=== PATIENT | female | born 1945 | race Caucasian/White ===

== ENCOUNTER 2017-08-03 23:00 | Inpatient (IN) | payer MEDICARE, OTHER ==
[~2017-08-03] VITALS: Ht 152.4 cm; Wt 61.2 kg
[2017-08-03] MEDS ORDERED: ASPIRIN 81 MG CHEW (CHILDREN'S ASA) ONE (23:13)
[2017-08-03] MEDS ORDERED: NITROGLYCERIN 0.4 MG SL TABS BTL 25'S SL ONE (23:14)
[2017-08-03 23:15] VITALS: BP 165/103
[2017-08-03] MEDS ORDERED: ASPIRIN 81 MG CHEW (CHILDREN'S ASA) PO ONE (23:15)
[2017-08-03] MEDS: NITROGLYCERIN 0.4 MG SL TABS BTL 25'S SL PRN ×3 (23:17→23:30)
[2017-08-03] MEDS ORDERED: HEParin DRIP 25000 UNIT/500ML 500 ML IV ONE (23:20)
[2017-08-03] MEDS ORDERED: HEParin 1000 UNIT/ML (10ML VIAL) FOR BOLUS ONE ×2 (23:20→23:52)
[2017-08-03] MEDS ORDERED: HEParin 1000 UNIT/ML (10ML VIAL) FOR BOLUS IV ONE (23:21)
[2017-08-03] MEDS ORDERED: CLOPIDOGREL 300 MG (PLAVIX) TABLET PO ONE (23:21)
[2017-08-03 23:30] VITALS: BP 121/92
[2017-08-03 23:30] LABS: BASOPHILS % (AUTO) 0 % (0-10); EOSINOPHILS # (AUTO) 0.2 10^3/uL (0.0-0.3); EOSINOPHILS % (AUTO) 3 % (0-10); HEMATOCRIT 42 % (35-52); HEMOGLOBIN 14.5 G/DL (11.5-16.0); LYMPHOCYTES # (AUTO) 3.7 X 10^3 (1.0-4.0); LYMPHOCYTES % (AUTO) 61 % (12-44); MEAN CORPUSCULAR HEMOGLOBIN 32 PG (25-34); MEAN CORPUSCULAR HGB CONC 34 G/DL (32-36); MEAN CORPUSCULAR VOLUME 93 FL (80-99); MEAN PLATELET VOLUME 10.3 FL (7.4-10.4); MONOCYTES # (AUTO) 0.8 X 10^3 (0.0-1.0); MONOCYTES % (AUTO) 13 % (0-12); NEUTROPHILS # (AUTO) 1.4 X 10^3 (1.8-7.8); NEUTROPHILS % (AUTO) 23 % (42-75); PLATELET COUNT 144 10^3/uL (130-400); RED BLOOD COUNT 4.51 10^6/uL (4.35-5.85); RED CELL DISTRIBUTION WIDTH 11.8 % (10.0-14.5); WHITE BLOOD COUNT 6.1 10^3/uL (4.3-11.0)
--- NOTE | 2017-08-03 23:30 | ED Chest Pain ---
General Chief Complaint: Chest Pain Stated Complaint: EARACHE,COLD SWEATS History of Present Illness Date Seen by Provider: Aug 03, 2017 Time Seen by Provider: 23:10 Initial Comments Here with report initially ear pain and cold sweats but then return to the window and reported that she was having neck pain and central chest pain. At that time she was brought immediately back into the ER and placed on the monitor. Patient reports that the ear pain has been going on for 2 days intermittently that about 15-20 minutes prior to arrival she noted jaw pain and that progressed to neck pain and chest pressure. Also noted to have diaphoresis with this. Never had a heart attack before. Denies nausea or vomiting. Timing/Duration: 1/2 hour, getting worse Severity/Quality: moderate, severe, pressure Location: central Radiation: jaw, other (ears) Activities at Onset: none Prior CP/Workup: no prior chest pain Modifying Factors: improves with rest ASA po MANAGER INSPECTION: No NTG SL MANAGER INSPECTION: No Associated Symptoms: No abdominal pain, No back pain, diaphoresis, No dizziness , No fatigue, No shortness of breath, No weakness Allergies and Home Medications Allergies Coded Allergies: No Known Drug Allergies (Unverified , 08/03/17) Patient Home Medication List Home Medication List Reviewed: Yes Review of Systems Constitutional: see HPI, No chills, diaphoresis, No fever EENTM: No Symptoms Reported Respiratory: No Symptoms Reported Cardiovascular: See HPI, Chest Pain Gastrointestinal: See HPI, Abdomen Distended Genitourinary: No Symptoms Reported, Discharge Musculoskeletal: no symptoms reported Skin: no symptoms reported All Other Systems Reviewed Negative Unless Noted: Yes Past Ijemsrk-Oadahk-Wmwlnd Hx Patient Social History Alcohol Use: Denies Use Recreational Drug Use: No Smoking Status: Never a Smoker Surgeries History of Surgeries: Yes Surgeries: Section Respiratory History of Respiratory Disorde: No Cardiovascular History of Cardiac Disorders: Yes Cardiac Disorders: High Cholesterol, Hypertension Neurological History of Neurological Disord: No Genitourinary History of Genitourinary Disor: No Gastrointestinal History of Gastrointestinal Di: No Musculoskeletal History of Musculoskeletal Dis: No Endocrine History of Endocrine Disorders: Yes Endocrine Disorders: Hypothyroidsim Reviewed Nursing Assessment Reviewed/Agree w Nursing PMH: Yes Family Medical History Significant Family History: No Pertinent Family Hx Physical Exam Vital Signs Capillary Refill : Less Than 3 Seconds General Appearance: WD/WN, Mild Distress HEENT: PERRL/EOMI, Pharynx Normal Neck: Full Range of Motion, Normal Inspection, Non Tender, Supple Respiratory: Lungs Clear, Normal Breath Sounds Cardiovascular: Regular Rate, Rhythm, No Murmur Gastrointestinal: Non Tender, Soft Extremity: Normal Range of Motion, Non Tender Neurologic/Psychiatric: Alert, Oriented x3 Skin: Normal Color, Warm/Dry Progress/Results/Core Measures Results/Orders Lab Results Laboratory Tests Test 08/03/17 23:19 Range/Units My Orders Orders - BOO DENNIS MD Cbc With Automated Diff (08/03/17:) Magnesium (08/03/17:) Chest 1 View, Ap/Pa Only (08/03/17:) Ekg Tracing (08/03/17:) Cardiac Profile 1 (08/03/17) Comprehensive Metabolic Panel (08/03/17) Myoglobin Serum (08/03/17:15) Protime With Inr (08/03/17:15) Partial Thromboplastin Time (08/03/17:) O2 (08/03/17:15) Monitor-Rhythm Ecg Trace Only (08/03/17:) Lipid Panel (08/04/17 06:00) Aspirin Chewable Tablet (Baby Aspirin Ch (08/03/17 23:15) Nitroglycerin 0.4 Mg Btl 25's (Nitrostat (08/03/17 23:15) Saline Lock/Iv-Start (08/03/17 23:15) Aspirin Chewable Tablet (Baby Aspirin Ch (08/03/17 23:13) Nitroglycerin 0.4 Mg Btl 25's (Nitrostat (08/03/17 23:14) Heparin Acs Bolus 60 Units/Kg (08/03/17 23:21) Progress Note : Progress Note Seen and evaluated. Patient placed on monitor and noted ST elevation in lead to and immediate EKG was obtained which confirmed the acute AL inferior wall. IV, labs, chest x-ray, ASA 324 mg by mouth nitroglycerin sublingual ordered. I did page Dr. Schumacher at [phone]. He would like Insurance Policy Issue Clerk activated. Plavix 300 mg by mouth, heparin 5000 units IV bolus and 1000 units per hour drip requested by Dr. Schumacher. This was ordered. The Insurance Policy Issue Clerk team activated by nursing manufacturing shift supervisor at time of page. Findings concerns discussed with patient and family. Patient to go to Insurance Policy Issue Clerk. [id number]: Dr. Schumacher in the ER evaluating patient. ECG Initial ECG Impression Date: Aug 03, 2017 Initial ECG Impression Time: 23:18 Initial ECG Rate: 69 Initial ECG Rhythm: Normal Sinus Comment Sinus rhythm with findings of acute AL inferior leads with ST elevation in 2, 3 and aVF with reciprocal changes in lead 1 and aVL as well as V1 and V2. No previous EKG available for comparison. Normal axis. Interpreted by me. Diagnostic Imaging Diagonstic Imaging: Xray Plain Films/CT/US/NM/MRI: chest Comments No acute findings Reviewed: Reviewed by Me Departure Communication (Admissions) Time/Spoke to Admitting Phy: 23:18 Impression Impression: Primary Impression: Acute AL, inferior wall Disposition: ADMITTED INPATIENT Condition: Stable Admissions Decision to Admit Reason: Admit from ER (General) Decision to Admit/Date: Aug 03, 2017 Time/Decision to Admit Time: 23:18 Departure-Patient Inst. Referrals: ABRAM BRITT DO (PCP) Primary Care Physician BOO DENNIS MD Aug 03, 2017 23:30
[2017-08-03 23:35] LABS: INR 1.1 (0.8-1.4); PROTHROMBIN TIME PATIENT 14.2 SEC (12.2-14.7)
[2017-08-03 23:45] VITALS: BP 128/79
[2017-08-03 23:46] LABS: ALANINE AMINOTRANSFERASE 22 U/L (0-55); ALBUMIN 4.2 GM/DL (3.2-4.5); ALKALINE PHOSPHATASE 56 U/L (40-136); BILIRUBIN,TOTAL 0.4 MG/DL (0.1-1.0); BUN/CREATININE RATIO 23; CALCIUM 9.2 MG/DL (8.5-10.1); CARBON DIOXIDE 28 MMOL/L (21-32); CHLORIDE 103 MMOL/L (98-107); CREATININE SERUM 0.74 MG/DL (0.60-1.30); GFR ESTIMATED > 60; GLUCOSE 120 MG/DL (70-105); MAGNESIUM 2.3 MG/DL (1.8-2.4); SODIUM 138 MMOL/L (135-145); TOTAL PROTEIN 7.2 GM/DL (6.4-8.2)
[2017-08-03 23:52] LABS: MYOGLOBIN SERUM 39.3 NG/ML (10.0-92.0)
[2017-08-03] MEDS ORDERED: fentaNYL INJECTION 100 MCG/2 ML AMP ONE (23:52)
[2017-08-03] MEDS ORDERED: diphenhydrAMINE 50 MG/ML INJ (BENADRYL) ONE (23:52)
[2017-08-03] MEDS ORDERED: MIDAZOLAM 5 MG/5 ML (VERSED) VIAL ONE (23:52)
[2017-08-03] MEDS ORDERED: NITRO DRIP 25000 MCG/D5W 0 ML IV ONE (23:52)
[2017-08-03] MEDS ORDERED: NS IV 1000 ML 1,000 ML ONE (23:52)
[2017-08-03] MEDS ORDERED: LIDOCAINE 1% INJ 50 ML (XYLOCAINE) VIAL ONE (23:52)
[2017-08-03] MEDS ORDERED: HEParin (CATH LAB) 2,000 ML IV ONE (23:53)
--- NOTE | 2017-08-03 23:53 | Cardiology History & Physical ---
HPI-Cardiology Cardiology H&P Date of Admission 08/03/17 Primary Care Physician Benny Boyd DO Attending Physician Germaine Schumacher MD MA FACP [facility] Consulting Physician [facility] CC: Chest pain HPIL 71 yo woman with approx 45 min of chest pain. Had presented with ear pain and sweatiness and began to have chest and jaw pain in the waiting room. Was brought to the ER and ECG at 11:14 showed STEMI in the inf leads. Chest pain is midsternal, mod to mod severe, associated with some shortness of breath. Denies palp or syncope or leg swelling. Has never had such pain before Review of Systems-Cardiology Review of Systems Constitutional: malaise, No weight loss, No weight gain Eyes: No vision change Ears/Nose/Throat: No ear discharge, No nasal drainage, No recent hearing loss Respiratory: As described under HPI Cardiovascular: As described under HPI Gastrointestinal: No constipation, No diarrhea, No nausea, No vomiting Genitourinary: No dysuria, No hematuria Musculoskeletal: No back pain, No joint pain Skin: No rash, No ulcerations Psychiatric/Neurological: No seizure, No focal weakness, No syncope Hematologic: No bleeding abnormalities All Other Systems Reviewed Negative Unless Noted: Yes GFI-Ocjusp-Ijhuiw Hx Patient Social History Alcohol Use: Denies Use Recreational Drug Use: No Smoking Status: Never a Smoker 2nd Hand Smoke Exposure: No Recent Foreign Travel: No Recent Infectious Disease Expo: No Hospitalization with Isolation: Denies Past Medical History PMH As described under Assessment. Family Medical History Family Medical History: No fam h/o early CAD or SCD. Father and brother had ID in their later age Allergies and Home Medications Allergies Coded Allergies: No Known Drug Allergies (Unverified , 08/03/17) Patient Home Medication List Home Medication List Reviewed: Yes Physical Exam-Cardiology Physical Exam Vital Signs/I&O Vital Sign - Last 12Hours 08/03/17 08/03/17 08/03/17 23:10 23:10 23:10 Temp 95.7 Pulse 77 Resp 12 B/P (MAP) 176/105 (128) Pulse Ox 96 100 O2 Delivery Nasal Cannula Nasal Cannula O2 Flow Rate 2.0 2.00 2.00 Capillary Refill : Less Than 3 Seconds Constitutional: AAO x 3, well-developed, well-nourished HEENT: EOMI, hearing is well preserved, No xanthelasmas are seen Neck: No carotid bruit, carotid pulses are 2 + bilaterally, with good upstrokes Respiratory: No accessory muscle use, lungs clear to percussion, lungs clear to auscultation Cardiovascular: regular rate-rhythm, S1 and S2, systolic murmur (faint CEDRICK at card base) Gastrointestinal: No tender, soft, No guarding, No rebound, audible bowel sounds Extremities: No clubbing, No cyanosis, No significant edema Neurologic/Psychiatric: oriented x 3, grossly intact, power is 5/5 both on sides Skin: No rash on exposed areas, No ulcerations on exposed areas Data Review Labs Laboratory Tests 08/03/17 23:19: White Blood Count 6.1, Red Blood Count 4.51, Hemoglobin 14.5, Hematocrit 42, Mean Corpuscular Volume 93, Mean Corpuscular Hemoglobin 32, Mean Corpuscular Hemoglobin Concent 34, Red Cell Distribution Width 11.8, Platelet Count 144, Mean Platelet Volume 10.3, Neutrophils (%) (Auto) 23L, Lymphocytes (%) (Auto) 61H, Monocytes (%) (Auto) 13H, Eosinophils (%) (Auto) 3, Basophils (%) (Auto) 0 , Neutrophils # (Auto) 1.4L, Lymphocytes # (Auto) 3.7, Monocytes # (Auto) 0.8, Eosinophils # (Auto) 0.2, Basophils # (Auto) 0.0, Prothrombin Time 14.2, INR Comment 1.1, Activated Partial Thromboplast Time 29, Sodium Level 138, Potassium Level 4.0, Chloride Level 103, Carbon Dioxide Level 28, Anion Gap 7, Blood Urea Nitrogen 17, Creatinine 0.74, Estimat Glomerular Filtration Rate > 60 , BUN/Creatinine Ratio 23, Glucose Level 120H, Calcium Level 9.2, Magnesium Level 2.3, Total Bilirubin 0.4, Aspartate Amino Transf (AST/SGOT) 24, Alanine Aminotransferase (ALT/SGPT) 22, Alkaline Phosphatase 56, Total Protein 7.2, Albumin 4.2 Laboratory Tests 08/03/17 23:19 A/P-Cardiology Assessment/Admission Diagnosis Acute inf wall STEMI Hypertension Admission Status: Inpatient Order (span 2 midnights) Reason for Inpatient Admission: Acute ID Discussion and Recomendations * Given STEMI and ongoing symptoms, we recommend emergency cath and possible PCI. The rationale, procedure, risks, benefits, potential complications and alternatives of these procedures were reviewed and discussed. She provides informed consent. She has been treated with oral ASA and clopidogrel and iv heparin. BB when considered from the standpoint of bp and heart rate Clinical Quality Measures AMI/AHF: ASA po Prior to arrival: GERMAINE Silva MD FACP [facility] CCDS Aug 03, 2017 23:53
--- NOTE | 2017-08-03 23:55 | Cardiac Procedure Note-CS/ASA ---
Pre-Procedure Note Pre-Op Procedure Note H&P Reviewed The H&P was reviewed, patient examined and no changes noted. Date H&P Reviewed: Aug 03, 2017 Time H&P Reviewed: 23:55 Conscious Sedation Pre-Proced Time Reviewed: 23:55 ASA Class: 3 Airway Mallampati Classification: (sault [place] appropriate class) I. II. III, IV Lungs Heart ASA score ASA 1: a normal healthy patient ASA 2: a patient with a mild systemic disease (mid diabetes, controlled hypertension, obesity ASA 3: a patient with a severe systemic disease that limits activity (angina , COPD, prior Myocardial infarction) ASA 4: a patient with an incapacitating disease that is a constant threat to life (CHF, renal failure) ASA 5: a moribund patient not expected to survive 24 hrs. (ruptured aneurysm) ASA 6: a declared brain patient whose organs are being harvested. For emergent operations, add the letter E after the classification Grade 2 Sedation Plan: Analgesia, Amnesia, Plan communicated to team members, Discussed options with patient/fam, Discussed risks with patient/fam Note The patient is an appropriate candidate to undergo the planned procedure, sedation, and anesthesia. The patient immediately re-assessed prior to indication. LIZY PINON MD FACP [facility] CCDS Aug 03, 2017 23:55
[2017-08-04] VITALS (32 sets, daily range): BP systolic 74–115; BP diastolic 45–94
[2017-08-04] MEDS: NS IV 1000 ML 1,000 ML IV SCH ×6 (00:01→20:51)
[2017-08-04] MEDS ORDERED: HEParin 1000 UNIT/ML (10ML VIAL) FOR BOLUS ONE (00:16)
[2017-08-04] MEDS ORDERED: ONDANSETRON 4 MG/2 ML (SDV) Z0FRAN ONE (00:16)
[2017-08-04] MEDS ORDERED: EPTIFIBATIDE BOLUS 20 ML IV ONE (00:16)
[2017-08-04] MEDS ORDERED: EPTIFIBATIDE DRIP 100 ML IV ONE (00:20)
[2017-08-04] MEDS ORDERED: ATROPINE INJECTION 1 MG/10 ML SYR (ABBOTT) ONE ×2 (00:36→00:43)
[2017-08-04] MEDS ORDERED: NS (IVPB) 250 ML ONE (00:39)
[2017-08-04] MEDS ORDERED: niCARdipine 25 MG/10 ML (CARDENE) AMP IV ONE (00:39)
[2017-08-04] MEDS ORDERED: ATROPINE INJECTION 1 MG/10 ML SYR (ABBOTT) INJ ONE (01:00)
[2017-08-04] MEDS ORDERED: CLOPIDOGREL 300 MG (PLAVIX) TABLET PO ONE (01:43)
[2017-08-04] MEDS ORDERED: PATIENT MAY USE OWN MEDS, ALL PO SCH (02:00)
[2017-08-04] MEDS ORDERED: ONDANSETRON 4 MG/2 ML (SDV) Z0FRAN IVP PRN (02:00)
--- NOTE | 2017-08-04 06:46 | Diagnostic Imaging Report ---
EXAMINATION: Chest radiograph, portable AP view. DATE: 08/03/2017 at 2341 hours. INDICATION: 71-year-old female, upper chest and jaw pain. COMPARISON: None. FINDINGS: Heart size and mediastinal contours are unremarkable. There are limitations of the exam relating to material overlying the patient. There is no identified pneumothorax. There is no large pleural effusion. There is no identified focal airspace consolidation. IMPRESSION: No identified acute cardiopulmonary abnormality. Dictated by: Dictated on workstation # [id number]
--- NOTE | 2017-08-04 06:49 | CARDIAC CATHETERIZATION ---
DATE OF SERVICE: DATE OF PROCEDURE: 08/03/2017 CARDIAC CATHETERIZATION AND CORONARY INTERVENTION REPORT HISTORY: The patient is a 71-year-old lady with a history of hypertension, who presented to the emergency room with nonspecific symptoms, then began to have chest discomfort in the waiting room. Cardiac catheterization showed ST-elevation myocardial infarction involving the inferior leads. Emergency cardiac catheterization was carried out after having obtained an informed consent. After she had been placed on the cardiac catheterization table, before the procedure could be started, she went into cardiac arrest. She appeared to have ventricular fibrillation. Electrical defibrillation was carried out through dermal patches. We also gave 1 mg of intravenous epinephrine and 1 mg of atropine. She also received chest compressions during this time. We were able to achieve her rhythm back (sinus with premature ventricular and atrial contractions). We then proceeded with the cardiac catheterization procedure. PROCEDURE IN DETAIL: PCI TO RCA The right groin was prepared and draped in the usual sterile fashion. Lidocaine 1% with local anesthesia. Modified Seldinger technique was used to advance a 6-Malian sheath in right femoral artery. Based on the electrocardiogram, it appeared that the culprit lesion would be in the right coronary artery. We engaged the right coronary artery with a 6-Malian JR4 guide catheter with side holes. The right coronary artery appeared to have 99% long proximal stenosis. We advanced a ChoICE floppy wire with moderate difficulty and placed it into the distal vessel and carried out balloon angioplasty with Emerge 2.5 x 30 mm balloon (DBT 55 min). This improved the stenosis from approximately 95% to less than 70%. We then stented this lesion with Alpine Xience 2.75 x 28 mm stent. Following stenting, we noted that the vessel that the wire was in was actually a fairly large right ventricular branch and the intervention to the right ventricular branch had resulted in improvement of flow into the right coronary artery, which had previously been completely occluded. Because of the stent was now stretching across the mid portion of the right coronary artery into the proximal portion of the right ventricular branch, we carried out wiring through the stent struts and the wire was placed into the distal part of the right coronary artery. We then carried out kissing balloon angioplasty in the right coronary artery with a 2.5 x 20 mm balloon and in the right ventricular branch with a 2.0 x 20 mm balloon. These balloon inflations were carried out in a kissing balloon pattern. This was to preserve the architecture of the stent while spreading the struts of the stent that were lying across the mid portion of the right coronary artery. During this ballooning, the right coronary artery flow improved significantly, but it appeared that there was thrombus shift into the right ventricular branch, which caused no flow in the distal part of the right ventricular branch. We continued treatment with intravenous heparin and intravenous Integrilin throughout the procedure. As stated, we carried out balloon angioplasty within the right ventricular branch, but we were not able to improve slow flow into the right ventricular branch, likely resulting from distal embolization of the right ventricular branch. We felt that the right ventricular branch was not salvageable at this point. We removed the right ventricular branch wire, but did keep the right coronary artery wire in place and on this wire we advanced Alpine Xience 2.75 x 12 mm stent and it was placed extending across the expanded stent struts in the right coronary artery. This stent was deployed at 16 atmospheres. We then collapsed the balloon and pulled it back to the area of the overlap of the stent with the previous stent and the balloon was inflated to 20 atmospheres. Subsequent angiography revealed 0% residual stenosis in the right coronary artery and the right coronary artery was opened distally down to its terminal posterolateral branches. We gave 700 mcg of nicardipine to improve flow in the right ventricular branch, but this did not result in any improvement. It appeared that this was the best result that we could get in the right coronary artery. We removed the guide catheter and then proceeded with angiography of the left coronary system. PCI TO LCX Angiography of the left coronary system was carried out using a 5-Malian JL4 catheter. This indicated rrva-yq-ygydbvfn diffuse disease in the left anterior descending artery, but there was 90% to 95% stenosis in the proximal portion of the left circumflex artery, which subserved a relatively large obtuse marginal system. We proceeded with the percutaneous intervention to this vessel. We used a 6-Malian JL4 guide catheter. We advanced a ChoICE floppy wire across the lesion. We carried out balloon angioplasty with 2.0 x 20 mm balloon and then stented the site with Alpine Xience 2.5 x 12 mm stent, which reduced the stenosis to 0% residual and the flow throughout the vessel was normal. Angioplasty equipment was removed We used a 6-Malian pigtail catheter to carry out left heart catheterization, left ventricular angiography. This catheter was then pulled back into the ascending aorta and removed. We then repeated angiography into the right coronary artery with a 6-Malian JR4 diagnostic catheter to make sure that the right coronary artery was still patent. It was found to be patent. The right ventricle branch was still occluded due to distal embolization of the myocardial infarction-related thrombus. The diagnostic catheters were removed. We carried out angiography of the right femoral artery through the sheath. Mynx was used to achieve hemostasis. At the beginning of the procedure, she did not have vomiting, but her symptoms subsided with the coronary intervention, although the ST segment elevations did not subside adequately. The yctr-ud-nvaosms time was approximately 55 minutes. HEMODYNAMICS: Left ventricular end-diastolic pressure following coronary angiography was 16 mmHg. There was no significant pressure gradient on pullback across the aortic valve. Ascending aortic pressure was 144/85 with a mean of 114 mmHg. CORONARY ANGIOGRAPHY: Left main coronary artery was free of significant disease. Left anterior descending artery has diffuse fejf-wt-gfgimfzt disease. Left circumflex artery had 90% proximal stenosis. This was stented with Alpine Xience 2.25 x 12 mm stent resulting in 0% residual stenosis. The right coronary artery was the culprit lesion and had 99% mid vessel stenosis and complete occlusion of the distal right coronary artery. Intervention was undertaken to this vessel. A stent was placed in the proximal and mid right coronary artery extending slightly into the right ventricular branch. This was an Alpine Xience 2.75 x 28 mm stent. Another stent was placed in the mid right coronary artery after stretching the stent struts within the previously placed stent and the mid right coronary artery stent is Alpine Xience 2.75 x 12 mm and it overlapped the previous stent. The right coronary artery, which was completely occluded does not exhibit any significant residual stenosis following stent deployment, but the right ventricular branch was lost due to embolization of the infarct-related thrombus. LEFT VENTRICULAR ANGIOGRAPHY: Left ventricular angiography was carried out in the right anterior oblique projection. Global left ventricular systolic function is well preserved with ejection fraction of approximately 60%. There is posterobasal hypokinesis. There does not appear to be significant mitral regurgitation. CONCLUSIONS: 1. Mid vessel occlusion of the right coronary artery treated with overlapping stents (Alpine Xience 2.75 x 28 mm the distal part of which extends slightly into the right ventricular branch) and Alpine Xience 2.75 x 12 mm stent that was placed through the expanded struts of the previous stent and overlaps the stent to some degree. There is no significant residual stenosis in the right coronary artery and the flow was normal, but right ventricular branch was lost during the procedure due to infarct-related thrombus. 2. A 90% to 95% stenosis of the proximal left circumflex artery, which was treated with stenting with Alpine Xience 2.25 x 12 mm stent with reduction of stenosis to 0% residual. 3. The left anterior descending artery has diffuse tizo-zs-jhenmzgi disease. 4. Well preserved global left ventricular systolic function with ejection fraction 60%. 5. Postero-basal hypokinesis. 6. No significant mitral regurgitation. 7. Mild elevation of left ventricular end-diastolic pressure. DISCUSSION AND RECOMMENDATIONS: She is being hospitalized to the intensive care unit. Because of right ventricular branch occlusion, right ventricular infarction is expected. IV fluids are being continued. She is currently asymptomatic. Beta blockers will be added if tolerated by blood pressure and heart rate. Dual antiplatelet therapy has been initiated. Statin therapy has been initiated. BRETT inhibitors have been initiated. Further recommendation will be based on her hospital course. Job ID: [id number] DocumentID: [id number] Dictated Date: 08/04/2017 02:30:53 Lining Mechanic Date: 08/04/2017 05:01:19 Dictated By: LIZY PINON MD, MA, FACP, FACC, MTDD
[2017-08-04] MEDS ORDERED: INFLUENZA TRIvalent 2017-2018 0.5 ML/45 MCG SYR IM ONE (07:45)
[2017-08-04] MEDS ORDERED: lisINopril 5 MG (PRINIVIL) TABLET PO SCH (09:00)
[2017-08-04] MEDS ORDERED: FAMOTIDINE 20 MG (PEPCID) TABLET PO PRN (09:00)
[2017-08-04 10:13] LABS: BASOPHILS % (AUTO) 0 % (0-10); EOSINOPHILS % (AUTO) 0 % (0-10); HEMATOCRIT 34 % (35-52); HEMOGLOBIN 11.9 G/DL (11.5-16.0); LYMPHOCYTES # (AUTO) 0.8 X 10^3 (1.0-4.0); LYMPHOCYTES % (AUTO) 9 % (12-44); MEAN CORPUSCULAR HEMOGLOBIN 33 PG (25-34); MEAN CORPUSCULAR HGB CONC 35 G/DL (32-36); MEAN CORPUSCULAR VOLUME 94 FL (80-99); MEAN PLATELET VOLUME 10.5 FL (7.4-10.4); MONOCYTES # (AUTO) 0.6 X 10^3 (0.0-1.0); MONOCYTES % (AUTO) 7 % (0-12); NEUTROPHILS # (AUTO) 7.3 X 10^3 (1.8-7.8); NEUTROPHILS % (AUTO) 84 % (42-75); PLATELET COUNT 147 10^3/uL (130-400); RED BLOOD COUNT 3.64 10^6/uL (4.35-5.85); RED CELL DISTRIBUTION WIDTH 11.9 % (10.0-14.5); WHITE BLOOD COUNT 8.7 10^3/uL (4.3-11.0)
[2017-08-04] MEDS ORDERED: LEVO50TA6 PO (10:14)
[2017-08-04] MEDS ORDERED: LOSA50TA36 PO (10:14)
[2017-08-04] MEDS ORDERED: PRAV40TA2 PO (10:14)
[2017-08-04] MEDS ORDERED: VNL37.5T PO (10:14)
[2017-08-04] MEDS: ASPIRIN 81 MG CHEW (CHILDREN'S ASA) PO SCH (10:19)
[2017-08-04] MEDS: CLOPIDOGREL 75 MG (PLAVIX) TABLET PO SCH (10:20)
[2017-08-04] MEDS ORDERED: ASPI-983 PO (10:22)
[2017-08-04] MEDS ORDERED: [UNRECOGNIZED DRUG - OTHER] PO (10:22)
[2017-08-04] MEDS ORDERED: CALC-696 PO (10:22)
[2017-08-04] MEDS ORDERED: ASPI-999 PO (10:24)
[2017-08-04 10:29] LABS: BUN/CREATININE RATIO 23; CALCIUM 7.6 MG/DL (8.5-10.1); CARBON DIOXIDE 23 MMOL/L (21-32); CHLORIDE 106 MMOL/L (98-107); CREATININE SERUM 0.61 MG/DL (0.60-1.30); GFR ESTIMATED > 60; GLUCOSE 144 MG/DL (70-105); POTASSIUM 4.4 MMOL/L (3.6-5.0); SODIUM 135 MMOL/L (135-145)
--- NOTE | 2017-08-04 11:54 | Diagnostic Imaging Report ---
INDICATION: Cold sweats, shortness of air, ear pain. COMPARISON: 08/03/2017. FINDINGS: Increased patchy parenchymal opacity in the mid to upper right lung and to lesser extent the suprahilar left upper lobe reflects an adverse change from the prior exam and is suspicious for subtle changes of developing pneumonia. There is no evidence for pleural fluid. The heart size and vascularity remain within normal limits. IMPRESSION: New parenchymal opacities involve the mid to upper lungs, greater right, suspicious for changes of developing pneumonia. No pleural fluid or failure pattern. Dictated by: Dictated on workstation # [id number]
--- NOTE | 2017-08-04 15:20 | Consultation-Hospitalist ---
HPI History of Present Illness: HPI/Chief Complaint The patient is a 71-year-old white female who was admitted just before midnight last night. She presented with chief complaint of chest pain and had EKG evidence of an acute cardial infarction. She has subsequently undergone cardiac angiography. Post steady a chest x-ray was done which suggested patchy infiltrates bilaterally which had not been present on yesterday's chest x-ray. She is afebrile. She seems to be a bit hoarse. She reported that she had a bit of a cough prior to coming to the hospital and this is more so now. Her white count was 6100 at the ER last night and 8700 today. She reports she does not feel short of breath. Source: patient, family Exam Limitations: no limitations Date Seen 08/04/17 Attending Physician Germaine Schumacher MD Facp Facc Ccds PCP Benny Boyd DO Referring Physician Date of Admission Aug 04, 2017 at 02:13 Home Medications & Allergies Home Medications Reviewed patient Home Medication Reconciliation Form Allergies Allergies Coded Allergies No Known Drug Allergies (Unverified08/03/17) Past Ohptqfp-Lpjdyb-Kztyra Hx Patient Social History Alcohol Use: Denies Use Recreational Drug Use: No Smoking Status: Never a Smoker 2nd Hand Smoke Exposure: No Physical Abuse Screen: No Sexual Abuse: No Recent Foreign Travel: No Contact w/other who traveled: No Recent Hopitalizations: No Recent Infectious Disease Expo: No Seasonal Allergies Seasonal Allergies: No Surgeries Yes Section Respiratory No Cardiovascular Yes High Cholesterol, Hypertension Neurological No Reproductive System : No Genitourinary No Gastrointestinal No Musculoskeletal Yes Arthritis Endocrine History of Endocrine Disorders: Yes (thyroid problems) Endocrine Disorders: Hypothyroidsim HEENT History of HEENT Disorders: No Cancer No Psychosocial History of Psychiatric Problem: No Integumentary History of Skin or Integumenta: No Blood Transfusions History of Blood Disorders: No Reviewed Nursing Assessment Reviewed/Agree w Nursing PMH: Yes Family Medical History Significant Family History: No Pertinent Family Hx Review of Systems Constitutional: see HPI EENTM: no symptoms reported Respiratory: cough Cardiovascular: see HPI, chest pain Gastrointestinal: no symptoms reported Genitourinary: no symptoms reported Musculoskeletal: no symptoms reported Skin: no symptoms reported Psychiatric/Neurological: No Symptoms Reported Physical Exam Physical Exam Vital Signs Vital Signs - First Documented 08/03/17 23:10 Temp 95.7 Pulse 77 Resp 12 B/P (MAP) 176/105 (128) Pulse Ox 96 O2 Delivery Nasal Cannula O2 Flow Rate 2.0 Capillary Refill : Less Than 3 Seconds General Appearance: Mild Distress Eyes: Bilateral Eye Normal Inspection HEENT: Normal ENT Inspection Neck: Normal Inspection Respiratory: Chest Non Tender, Lungs Clear, Normal Breath Sounds, No Accessory Muscle Use, No Respiratory Distress Gastrointestinal: Normal Bowel Sounds, No Organomegaly, No Pulsatile Mass, Non Tender, Soft Back: Normal Inspection Extremity: Normal Capillary Refill, Normal Inspection, Normal Range of Motion, Non Tender, No Calf Tenderness, No Pedal Edema Neurologic/Psychiatric: Alert, Oriented x3, No Motor/Sensory Deficits, Normal Mood/Affect Skin: Normal Color, Warm/Dry Lymphatic: No Adenopathy Results Results/Procedures Lab Laboratory Tests 08/03/17 23:19 08/04/17 10:00 Assessment/Plan Assessment and Plan Assess & Plan/Chief Complaint Bilateral patchy pulmonary infiltrates. Chest pain post cardiac angiogram. Plan: Repeat CBC and chest x-ray tomorrow. Empiric Zithromax Clinical Quality Measures AMI/AHF: ASA po Prior to arrival: No DVT/VTE Risk/Contraindication: Risk Factor Score Per Nursin RFS Level Per Nursing on Admit: 4+=Very High SHANTELLE DE LUNA MD Aug 04, 2017 15:19
[2017-08-04] MEDS ORDERED: NS IV 500 ML 500 ML IV ONE (15:30)
[2017-08-04] MEDS ORDERED: AZITHROMYCIN 250 MG TAB (ZITHROMAX) PO NR (15:30)
[2017-08-04] MEDS ORDERED: PANTOPRAZOLE 40 MG/10 ML (PROTONIX) VIAL IV NR (15:30)
[2017-08-04 16:09] LABS: BASOPHILS % (AUTO) 0 % (0-10); EOSINOPHILS % (AUTO) 0 % (0-10); HEMATOCRIT 32 % (35-52); HEMOGLOBIN 10.7 G/DL (11.5-16.0); LYMPHOCYTES # (AUTO) 1.1 X 10^3 (1.0-4.0); LYMPHOCYTES % (AUTO) 10 % (12-44); MEAN CORPUSCULAR HEMOGLOBIN 32 PG (25-34); MEAN CORPUSCULAR HGB CONC 34 G/DL (32-36); MEAN CORPUSCULAR VOLUME 96 FL (80-99); MEAN PLATELET VOLUME 10.3 FL (7.4-10.4); MONOCYTES # (AUTO) 1.2 X 10^3 (0.0-1.0); MONOCYTES % (AUTO) 11 % (0-12); NEUTROPHILS # (AUTO) 8.6 X 10^3 (1.8-7.8); NEUTROPHILS % (AUTO) 79 % (42-75); PLATELET COUNT 152 10^3/uL (130-400); RED CELL DISTRIBUTION WIDTH 12.1 % (10.0-14.5); WHITE BLOOD COUNT 10.9 10^3/uL (4.3-11.0)
[2017-08-04 16:27] LABS: BUN/CREATININE RATIO 23; CALCIUM 7.6 MG/DL (8.5-10.1); CARBON DIOXIDE 25 MMOL/L (21-32); CHLORIDE 104 MMOL/L (98-107); CREATININE SERUM 0.62 MG/DL (0.60-1.30); GFR ESTIMATED > 60; GLUCOSE 116 MG/DL (70-105); MAGNESIUM 1.6 MG/DL (1.8-2.4); POTASSIUM 4.5 MMOL/L (3.6-5.0); SODIUM 134 MMOL/L (135-145)
[2017-08-04] MEDS ORDERED: NS IV 1000 ML 1,000 ML IV ONE (16:45)
[2017-08-04] MEDS: MAGNESIUM 1 GM/100 ML IVPB 100 ML IV SCH ×2 (16:49→17:54)
--- NOTE | 2017-08-04 17:44 | Progress Note-Cardiology ---
Cardiology SOAP Progress Note Subjective: No cp. Still has some earlobe pain (bilat). No shortness of breath. No palp. Has gen weakness Objective: I&O/Vital Signs Vital Sign - Last 12Hours 08/04/17 08/04/17 08/04/17 08/04/17 06:00 07:00 07:00 08:00 Temp 97.8 Pulse 84 81 81 Resp 17 13 B/P (MAP) 84/55 (65) 108/69 (82) Pulse Ox 90 98 O2 Delivery Nasal Cannula Nasal Cannula Nasal Cannula O2 Flow Rate 4.00 4.00 4.00 08/04/17 08/04/17 08/04/17 08/04/17 08:00 09:00 10:00 11:00 Pulse 74 73 76 76 Resp 16 14 19 25 B/P (MAP) 115/65 (82) 101/69 (80) 108/64 (79) 102/62 (75) Pulse Ox 98 97 98 96 O2 Delivery Nasal Cannula Nasal Cannula Nasal Cannula Nasal Cannula O2 Flow Rate 4.00 4.00 4.00 5.00 08/04/17 08/04/17 08/04/17 08/04/17 12:00 12:00 13:00 13:00 Temp 98.5 Pulse 73 71 86 Resp 11 15 B/P (MAP) 108/61 (77) 104/55 (71) Pulse Ox 97 98 O2 Delivery Nasal Cannula Nasal Cannula Nasal Cannula O2 Flow Rate 5.00 5.00 5.00 Weight (Pounds): 139 Weight (Ounces): 7.0 Weight (Calculated Kilograms): 63.663452 Constitutional: AAO x 3, well-developed, well-nourished Respiratory: No accessory muscle use, lungs clear to percussion, lungs clear to auscultation Cardiovascular: regular rate-rhythm, S1 and S2, systolic murmur (faint CEDRICK at card base) Gastrointestional: No tender, soft, No guarding, No rebound, audible bowel sounds Extremities: No clubbing, No cyanosis, No significant edema Neurologic/Psychiatric: oriented x 3, grossly intact, power is 5/5 both on sides Skin: No rash on exposed areas, No ulcerations on exposed areas Results/Procedures: Labs Laboratory Tests 08/03/17 23:19: White Blood Count 6.1, Red Blood Count 4.51, Hemoglobin 14.5, Hematocrit 42, Mean Corpuscular Volume 93, Mean Corpuscular Hemoglobin 32, Mean Corpuscular Hemoglobin Concent 34, Red Cell Distribution Width 11.8, Platelet Count 144, Mean Platelet Volume 10.3, Neutrophils (%) (Auto) 23L, Lymphocytes (%) (Auto) 61H, Monocytes (%) (Auto) 13H, Eosinophils (%) (Auto) 3, Basophils (%) (Auto) 0 , Neutrophils # (Auto) 1.4L, Lymphocytes # (Auto) 3.7, Monocytes # (Auto) 0.8, Eosinophils # (Auto) 0.2, Basophils # (Auto) 0.0, Prothrombin Time 14.2, INR Comment 1.1, Activated Partial Thromboplast Time 29, Sodium Level 138, Potassium Level 4.0, Chloride Level 103, Carbon Dioxide Level 28, Anion Gap 7, Blood Urea Nitrogen 17, Creatinine 0.74, Estimat Glomerular Filtration Rate > 60 , BUN/Creatinine Ratio 23, Glucose Level 120H, Calcium Level 9.2, Magnesium Level 2.3, Total Bilirubin 0.4, Aspartate Amino Transf (AST/SGOT) 24, Alanine Aminotransferase (ALT/SGPT) 22, Alkaline Phosphatase 56, Myoglobin 39.3, Troponin I < 0.30, Total Protein 7.2, Albumin 4.2 08/04/17 10:00: White Blood Count 8.7, Red Blood Count 3.64L, Hemoglobin 11.9, Hematocrit 34L, Mean Corpuscular Volume 94, Mean Corpuscular Hemoglobin 33, Mean Corpuscular Hemoglobin Concent 35, Red Cell Distribution Width 11.9, Platelet Count 147, Mean Platelet Volume 10.5H, Neutrophils (%) (Auto) 84H, Lymphocytes (%) (Auto) 9L, Monocytes (%) (Auto) 7, Eosinophils (%) (Auto) 0, Basophils (%) (Auto) 0, Neutrophils # (Auto) 7.3, Lymphocytes # (Auto) 0.8L, Monocytes # (Auto) 0.6, Eosinophils # (Auto) 0.0, Basophils # (Auto) 0.0, Sodium Level 135, Potassium Level 4.4, Chloride Level 106, Carbon Dioxide Level 23, Anion Gap 6, Blood Urea Nitrogen 14, Creatinine 0.61, Estimat Glomerular Filtration Rate > 60, BUN/ Creatinine Ratio 23, Glucose Level 144H, Calcium Level 7.6L 08/04/17 16:03: White Blood Count 10.9, Red Blood Count 3.30L, Hemoglobin 10.7L, Hematocrit 32L , Mean Corpuscular Volume 96, Mean Corpuscular Hemoglobin 32, Mean Corpuscular Hemoglobin Concent 34, Red Cell Distribution Width 12.1, Platelet Count 152, Mean Platelet Volume 10.3, Neutrophils (%) (Auto) 79H, Lymphocytes (%) (Auto) 10L, Monocytes (%) (Auto) 11, Eosinophils (%) (Auto) 0, Basophils (%) (Auto) 0, Neutrophils # (Auto) 8.6H, Lymphocytes # (Auto) 1.1, Monocytes # (Auto) 1.2H, Eosinophils # (Auto) 0.0, Basophils # (Auto) 0.0, Sodium Level 134L, Potassium Level 4.5, Chloride Level 104, Carbon Dioxide Level 25, Anion Gap 5, Blood Urea Nitrogen 14, Creatinine 0.62, Estimat Glomerular Filtration Rate > 60, BUN/ Creatinine Ratio 23, Glucose Level 116H, Calcium Level 7.6L, Magnesium Level 1.6L A/P: Assessment: Acute STEMI involving inferior wall of the LV; also has RV infarct Card cath and PCIs of 08/04/17: Mid vessel occlusion of the right coronary artery treated with overlapping stents (Alpine Xience 2.75 x 28 mm the distal part of which extends slightly into the right ventricular branch) and Alpine Xience 2.75 x 12 mm stent that was placed through the expanded struts of the previous stent and overlaps the stent to some degree. There is no significant residual stenosis in the right coronary artery and the flow was normal, but right ventricular branch was lost during the procedure due to infarct-related thrombus. A 90% to 95% stenosis of the proximal left circumflex artery, which was treated with stenting with Alpine Xience 2.25 x 12 mm stent with reduction of stenosis to 0% residual. The left anterior descending artery has diffuse mild -to-moderate disease. Well preserved global left ventricular systolic function with ejection fraction 60%, postero-basal hypokinesis, no significant mitral regurgitation and mild elevation of left ventricular end-diastolic pressure on [facility] of 08/04/17 Plan: * Continue dual antiplatelet therapy * Continue iv fluids, because of RV infarct * Avoid hypotensive agents * Monitor labs * Med consult for possible pneumonia and hemoptysis * Prognosis guarded * I discussed her CV issues in detail with her and her Clinical Quality Measures AMI/AHF: ASA po Prior to arrival: LIZY Silva MD FACP [facility] CCDS Aug 04, 2017 17:44
[2017-08-04] MEDS: ATORVASTATIN 80 MG (LIPITOR) TABLET PO SCH (20:51)
[2017-08-05] VITALS (24 sets, daily range): BP systolic 83–136; BP diastolic 45–84
[2017-08-05 08:33] LABS: BUN/CREATININE RATIO 21; CALCIUM 7.7 MG/DL (8.5-10.1); CARBON DIOXIDE 19 MMOL/L (21-32); CHLORIDE 112 MMOL/L (98-107); CREATININE SERUM 0.62 MG/DL (0.60-1.30); GFR ESTIMATED > 60; GLUCOSE 137 MG/DL (70-105); POTASSIUM 4.7 MMOL/L (3.6-5.0); SODIUM 140 MMOL/L (135-145)
[2017-08-05 08:54] LABS: BASOPHILS % (AUTO) 0 % (0-10); EOSINOPHILS % (AUTO) 0 % (0-10); HEMATOCRIT 28 % (35-52); HEMOGLOBIN 9.3 G/DL (11.5-16.0); LYMPHOCYTES # (AUTO) 1.2 X 10^3 (1.0-4.0); LYMPHOCYTES % (AUTO) 14 % (12-44); MEAN CORPUSCULAR HEMOGLOBIN 33 PG (25-34); MEAN CORPUSCULAR HGB CONC 34 G/DL (32-36); MEAN CORPUSCULAR VOLUME 97 FL (80-99); MEAN PLATELET VOLUME 10.7 FL (7.4-10.4); MONOCYTES # (AUTO) 0.9 X 10^3 (0.0-1.0); MONOCYTES % (AUTO) 11 % (0-12); NEUTROPHILS # (AUTO) 6.4 X 10^3 (1.8-7.8); NEUTROPHILS % (AUTO) 75 % (42-75); PLATELET COUNT 111 10^3/uL (130-400); RED BLOOD COUNT 2.86 10^6/uL (4.35-5.85); RED CELL DISTRIBUTION WIDTH 12.3 % (10.0-14.5); WHITE BLOOD COUNT 8.6 10^3/uL (4.3-11.0)
--- NOTE | 2017-08-05 08:55 | Progress Note-Cardiology ---
Cardiology SOAP Progress Note Subjective: Sitting up in a chair at the bedside. Feels like her breathing is better today than yesterday. C/O chest wall pain with deep inspirations. No c/o palpitations, syncope or near syncope. Occ loose cough. No reports of hemoptysis. Objective: I&O/Vital Signs Vital Sign - Last 12Hours 08/05/17 08/05/17 08/05/17 08/05/17 02:00 03:00 04:00 04:00 Temp 98.2 Pulse 79 79 81 Resp 25 8 26 B/P (MAP) 85/45 (58) 83/49 (60) 91/66 (74) Pulse Ox 93 96 93 O2 Delivery Nasal Cannula Nasal Cannula Nasal Cannula O2 Flow Rate 2.00 2.00 2.00 08/05/17 08/05/17 08/05/17 08/05/17 04:00 05:00 06:00 07:00 Pulse 84 96 87 Resp 22 20 B/P (MAP) 89/63 (72) 95/61 (72) Pulse Ox 93 92 O2 Delivery Nasal Cannula Nasal Cannula Nasal Cannula O2 Flow Rate 2.00 2.00 2.00 08/05/17 08/05/17 08/05/17 08/05/17 07:00 08:00 08:00 08:00 Temp 97.8 Pulse 84 84 Resp 10 26 B/P (MAP) 91/57 (68) 99/61 (74) Pulse Ox 95 95 O2 Delivery Nasal Cannula Nasal Cannula Nasal Cannula Nasal Cannula O2 Flow Rate 2.00 2.00 2.00 2.00 08/05/17 08/05/17 08/05/17 08/05/17 09:00 10:00 12:00 12:00 Temp 98.4 Pulse 88 95 Resp 10 15 B/P (MAP) 91/55 (67) 90/59 (69) Pulse Ox 94 93 O2 Delivery Nasal Cannula Nasal Cannula Nasal Cannula Nasal Cannula O2 Flow Rate 2.00 2.00 2.00 2.00 Intake and Output 08/05/17 00:00 Intake Total 3250 ml Output Total 350 ml Balance 2900 ml Weight (Pounds): 141 Weight (Ounces): 2.0 Weight (Calculated Kilograms): 64.674242 Constitutional: AAO x 3, well-developed, well-nourished Respiratory: No accessory muscle use, crackles (bi-basilar; R>L) Cardiovascular: regular rate-rhythm, S1 and S2, systolic murmur (faint CEDRICK at card base) Gastrointestional: No tender, soft, No guarding, No rebound, audible bowel sounds Extremities: No clubbing, No cyanosis, No significant edema Neurologic/Psychiatric: oriented x 3, grossly intact, power is 5/5 both on sides Skin: No rash on exposed areas, No ulcerations on exposed areas Results/Procedures: Labs Laboratory Tests 08/04/17 16:03: White Blood Count 10.9, Red Blood Count 3.30L, Hemoglobin 10.7L, Hematocrit 32L , Mean Corpuscular Volume 96, Mean Corpuscular Hemoglobin 32, Mean Corpuscular Hemoglobin Concent 34, Red Cell Distribution Width 12.1, Platelet Count 152, Mean Platelet Volume 10.3, Neutrophils (%) (Auto) 79H, Lymphocytes (%) (Auto) 10L, Monocytes (%) (Auto) 11, Eosinophils (%) (Auto) 0, Basophils (%) (Auto) 0, Neutrophils # (Auto) 8.6H, Lymphocytes # (Auto) 1.1, Monocytes # (Auto) 1.2H, Eosinophils # (Auto) 0.0, Basophils # (Auto) 0.0, Sodium Level 134L, Potassium Level 4.5, Chloride Level 104, Carbon Dioxide Level 25, Anion Gap 5, Blood Urea Nitrogen 14, Creatinine 0.62, Estimat Glomerular Filtration Rate > 60, BUN/ Creatinine Ratio 23, Glucose Level 116H, Calcium Level 7.6L, Magnesium Level 1.6L 08/05/17 03:05: White Blood Count 8.6, Red Blood Count 2.86L, Hemoglobin 9.3L, Hematocrit 28L, Mean Corpuscular Volume 97, Mean Corpuscular Hemoglobin 33, Mean Corpuscular Hemoglobin Concent 34, Red Cell Distribution Width 12.3, Platelet Count 111L, Mean Platelet Volume 10.7H, Neutrophils (%) (Auto) 75, Lymphocytes (%) (Auto) 14 , Monocytes (%) (Auto) 11, Eosinophils (%) (Auto) 0, Basophils (%) (Auto) 0, Neutrophils # (Auto) 6.4, Lymphocytes # (Auto) 1.2, Monocytes # (Auto) 0.9, Eosinophils # (Auto) 0.0, Basophils # (Auto) 0.0, Sodium Level 140, Potassium Level 4.7, Chloride Level 112H, Carbon Dioxide Level 19L, Anion Gap 9, Blood Urea Nitrogen 13, Creatinine 0.62, Estimat Glomerular Filtration Rate > 60, BUN/ Creatinine Ratio 21, Glucose Level 137H, Calcium Level 7.7L, Magnesium Level 2.5H, Total Bilirubin 0.9, Direct Bilirubin 0.4H, Indirect Bilirubin 0.5, Aspartate Amino Transf (AST/SGOT) 339H, Alanine Aminotransferase (ALT/SGPT) 93H , Alkaline Phosphatase 37L, Total Protein 5.2L, Albumin 3.2, Triglycerides Level 69, Cholesterol Level 106, LDL Cholesterol Direct 58, VLDL Cholesterol 14 , HDL Cholesterol 37L, Thyroid Stimulating Hormone (TSH) 0.26L Microbiology 08/04/17 Gram Stain - Final, Resulted 08/04/17 Sputum Culture - Preliminary, Resulted Usual/normal patricia isolated. Procedures NAME: LEYLA CASTELLANO [facility] REC#: [id number] PT STATUS: ADM IN : 1945 PHYSICIAN: ABHISHEK BANDA ADMIT DATE: 08/04/17/ICU Signed Date of Exam: 08/04/17 CHEST 1 VIEW, AP/PA ONLY INDICATION: Cold sweats, shortness of air, ear pain. COMPARISON: 08/03/2017. FINDINGS: Increased patchy parenchymal opacity in the mid to upper right lung and to lesser extent the suprahilar left upper lobe reflects an adverse change from the prior exam and is suspicious for subtle changes of developing pneumonia. There is no evidence for pleural fluid. The heart size and vascularity remain within normal limits. IMPRESSION: New parenchymal opacities involve the mid to upper lungs, greater right, suspicious for changes of developing pneumonia. No pleural fluid or failure pattern. 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 There is no significant residual stenosis in the right coronary artery and the flow was normal, but right ventricular branch was lost during the procedure due to infarct-related thrombus. A 90% to 95% stenosis of the proximal left circumflex artery, which was treated with stenting with Alpine Xience 2.25 x 12 mm stent with reduction of stenosis to 0% residual. The left anterior descending artery has diffuse mild -to-moderate disease Chest soreness post chest compression on 08/04/17 for transient lois-FL cardiac arrest Well preserved global left ventricular systolic function with ejection fraction 60%, postero-basal hypokinesis, no significant mitral regurgitation and mild elevation of left ventricular end-diastolic pressure on [facility] of 08/04/17 Echo of 08/04/17: LVEF 55-60%,mild AI, grade I diastolic dysfunction of LV, PASP WNL Pneumonia - management per medical services TSH 0.26 on lab of - indicative of hyperthyroidism Hypotension - likely d/t RV infarct Mild thrombocytopenia Elevated transaminases likely d/t STEMI Plan: * Continue dual antiplatelet therapy * Continue iv fluids, because of RV infarct * Avoid hypotensive agents * Monitor labs * Med consult for possible pneumonia and hemoptysis * We would like to thank medical services for their assistance * Prognosis guarded * Dr. Schumacher discussed her CV issues in detail with her and her * IS * Lovenox for DVT prophylaxis Physician Assessment Physician Assessment Feels better today. Has continuous chest soreness that is worse with motion at the torso and with deep insp. Ear discomfort has resolved. Denies shortness of breath or palp Lungs: clear Cor: reg Ext: no c/c/e A&R * As noted in our note above that I updated at the time of this writing (italics ) and as noted below * Monitor labs closely * Continue vigorous perioperative fluids * Start bb and BRETT-inhib if and when bp allows * I spoke with her and her fam and answered questions Clinical Quality Measures AMI/AHF: ASA po Prior to arrival: No ABHISHEK BANDA Aug 05, 2017 08:55 LIZY SCHUMACHER MD FACP [facility] CCDS Aug 05, 2017 13:48
[2017-08-05 09:01] LABS: ALANINE AMINOTRANSFERASE 93 U/L (0-55); ALBUMIN 3.2 GM/DL (3.2-4.5); ALKALINE PHOSPHATASE 37 U/L (40-136); BILIRUBIN,DIRECT 0.4 MG/DL (0.0-0.3); BILIRUBIN,INDIRECT 0.5 MG/DL; BILIRUBIN,TOTAL 0.9 MG/DL (0.1-1.0); MAGNESIUM 2.5 MG/DL (1.8-2.4); TOTAL PROTEIN 5.2 GM/DL (6.4-8.2)
[2017-08-05] MEDS: ASPIRIN 81 MG CHEW (CHILDREN'S ASA) PO SCH (09:10)
[2017-08-05] MEDS: CLOPIDOGREL 75 MG (PLAVIX) TABLET PO SCH (09:10)
[2017-08-05] MEDS: PANTOPRAZOLE 40 MG/10 ML (PROTONIX) VIAL IV SCH (09:10)
[2017-08-05] MEDS ORDERED: FAMOTIDINE 20 MG (PEPCID) TABLET PO PRN (10:15)
[2017-08-05] MEDS: NS IV 1000 ML 1,000 ML IV SCH ×2 (10:24→17:33)
[2017-08-05] MEDS ORDERED: ENOXAPARIN 40 MG/0.4 ML (LOVENOX) SYR SC SCH (10:30)
[2017-08-05] MEDS ORDERED: AZITHROMYCIN 250 MG TAB (ZITHROMAX) PO SCH (15:00)
--- NOTE | 2017-08-05 15:07 | Diagnostic Imaging Report ---
EXAM: Portable erect AP chest at 2:38 p.m. INDICATION: Respiratory distress FINDINGS: As noted on the prior exam of 08/04/2017 there are alveolar/interstitial pulmonary infiltrates throughout the right lung and left upper lung. These findings are similar to the prior exam. The left lung base is generally clear. The heart is stable. The mediastinum is not widened. The osseous structures are intact. IMPRESSION: There is persistent involvement of both lungs by pneumonia/atelectasis, particularly the right lung. When compared to the prior exam, there has been no significant change. A followup exam would be recommended for continued study. Dictated by: Dictated on workstation # [id number]
--- NOTE | 2017-08-05 16:29 | Progress Note-Hospitalist ---
Standard Progress Note Progress Notes/Assess & Plan Date Seen 08/05/17 Time Seen by Provider: 16:21 Assess & Plan/Chief Complaint The patient relates that she is feeling somewhat better today. She continues to cough although not so violently. She is afebrile and is not coughing up any phlegm. Her pulse has been in the 70s. Her blood pressure would be in the low normal range. It is noted that her hemoglobin has fallen from 14.5 admission to 9.3 now. I do not find any significant external evidence of bleeding. It is again noted that she had a cough prior to admission however became much more evident yesterday. Chest x-ray continues to show a fine infiltrate which has not increased as compared to yesterday. Gram stain of sputum showed no pathogen. White blood count is in the normal range. Early in the hospital stay O2 by nasal cannula at 2 L/m yielded consistent SaO2's of greater than 95. Now at 3-4 L/m we are seeing low 90s readings. Physical exam: She is alert and oriented and more lively than yesterday. Lungs show distant breath sounds without rhonchi or wheezing. CV shows a regular rate in the 70s. Heart sounds are normal. Abdomen is soft palpation. Extremities show no pedal edema. Impression: Arteriosclerotic heart disease post-coronary angiography. 2.harsh cough without evidence of infection. 3.hospital-acquired drop in hemoglobin. 4.hospital-acquired increase in AST and ALT. Plan: Continue O2 supplement and observation. Labs Laboratory Tests 08/03/17 23:19 08/04/17 10:00 08/04/17 16:03 08/05/17 03:05 SHANTELLE DE LUNA MD Aug 05, 2017 16:29
[2017-08-05] MEDS: ATORVASTATIN 80 MG (LIPITOR) TABLET PO SCH (20:12)
[2017-08-05] MEDS: ACETAMINOPHEN 325 MG TABLET/CAPLET (TYLENOL) PO PRN (20:13)
[2017-08-06] VITALS (23 sets, daily range): BP systolic 93–141; BP diastolic 58–98
[2017-08-06] MEDS: NS IV 1000 ML 1,000 ML IV SCH ×2 (01:26→12:09)
[2017-08-06 03:55] LABS: HEMOGLOBIN 9.3 G/DL (11.5-16.0); MEAN PLATELET VOLUME 10.9 FL (7.4-10.4); RED BLOOD COUNT 2.91 10^6/uL (4.35-5.85); RED CELL DISTRIBUTION WIDTH 12.3 % (10.0-14.5); WHITE BLOOD COUNT 7.7 10^3/uL (4.3-11.0)
[2017-08-06 04:10] LABS: ALANINE AMINOTRANSFERASE 84 U/L (0-55); ALBUMIN 3.1 GM/DL (3.2-4.5); ALKALINE PHOSPHATASE 41 U/L (40-136); BILIRUBIN,TOTAL 1.6 MG/DL (0.1-1.0); BUN/CREATININE RATIO 14; CALCIUM 7.7 MG/DL (8.5-10.1); CARBON DIOXIDE 22 MMOL/L (21-32); CHLORIDE 111 MMOL/L (98-107); CREATININE SERUM 0.58 MG/DL (0.60-1.30); GFR ESTIMATED > 60; GLUCOSE 117 MG/DL (70-105); MAGNESIUM 2.3 MG/DL (1.8-2.4); POTASSIUM 4.2 MMOL/L (3.6-5.0); SODIUM 139 MMOL/L (135-145); TOTAL PROTEIN 5.6 GM/DL (6.4-8.2)
[2017-08-06] MEDS ORDERED: FUROSEMIDE 40 MG/4 ML INJ (LASIX) IVP NR (08:30)
[2017-08-06] MEDS ORDERED: KCL 10 MEQ TAB (MICRO K) PO NR (08:30)
--- NOTE | 2017-08-06 08:46 | Progress Note-Cardiology ---
Cardiology SOAP Progress Note Subjective: Notes malaise and shortness of breath. Denies cp or palp or syncope Objective: I&O/Vital Signs Vital Sign - Last 12Hours 08/05/17 08/05/17 08/05/17 08/05/17 21:00 21:00 21:39 22:00 Temp 100.7 100.4 Pulse 92 93 Resp 22 24 B/P (MAP) 117/72 (87) 106/67 (80) Pulse Ox 94 93 O2 Delivery Nasal Cannula Nasal Cannula O2 Flow Rate 2.00 2.00 08/05/17 08/05/17 08/06/17 08/06/17 23:00 23:00 00:00 00:00 Temp 99.6 Pulse 93 89 Resp 26 17 B/P (MAP) 98/62 (74) 107/62 (77) Pulse Ox 93 91 O2 Delivery Nasal Cannula Nasal Cannula Nasal Cannula Nasal Cannula O2 Flow Rate 2.00 2.00 2.00 2.00 08/06/17 08/06/17 08/06/17 08/06/17 01:00 01:00 02:00 03:00 Pulse 87 85 91 107 Resp 27 17 17 B/P (MAP) 96/58 (71) 109/62 (78) 109/65 (80) Pulse Ox 93 92 93 O2 Delivery Nasal Cannula Nasal Cannula Nasal Cannula O2 Flow Rate 2.00 2.00 2.00 08/06/17 08/06/17 08/06/17 08/06/17 03:38 04:00 04:00 04:00 Temp 97.5 97.5 Pulse 104 Resp 22 B/P (MAP) 111/67 (82) Pulse Ox 91 O2 Delivery Nasal Cannula Nasal Cannula O2 Flow Rate 2.00 2.00 08/06/17 08/06/17 08/06/17 08/06/17 05:00 06:00 07:00 07:45 Temp 100.5 Pulse 105 122 101 Resp 24 30 B/P (MAP) 122/66 (84) 116/98 (104) Pulse Ox 92 93 O2 Delivery Nasal Cannula Nasal Cannula O2 Flow Rate 2.00 2.00 Intake and Output 08/06/17 00:00 Intake Total 1400 ml Output Total 550 ml Balance 850 ml Weight (Pounds): 136 Weight (Ounces): 6.0 Weight (Calculated Kilograms): [id number] Constitutional: AAO x 3, well-developed, well-nourished Respiratory: No accessory muscle use, crackles (bi-basilar; R>L) Cardiovascular: regular rate-rhythm, S1 and S2, systolic murmur (faint CEDRICK at card base) Gastrointestional: No tender, soft, No guarding, No rebound, audible bowel sounds Extremities: No clubbing, No cyanosis, No significant edema Neurologic/Psychiatric: oriented x 3, grossly intact, power is 5/5 both on sides Skin: No rash on exposed areas, No ulcerations on exposed areas Results/Procedures: Labs Laboratory Tests 08/06/17 03:10: White Blood Count 7.7, Red Blood Count 2.91L, Hemoglobin 9.3L, Hematocrit 28L, Mean Corpuscular Volume 97, Mean Corpuscular Hemoglobin 32, Mean Corpuscular Hemoglobin Concent 33, Red Cell Distribution Width 12.3, Platelet Count 99L, Mean Platelet Volume 10.9H, Sodium Level 139, Potassium Level 4.2, Chloride Level 111H, Carbon Dioxide Level 22, Anion Gap 6, Blood Urea Nitrogen 8, Creatinine 0.58L, Estimat Glomerular Filtration Rate > 60, BUN/Creatinine Ratio 14, Glucose Level 117H, Calcium Level 7.7L, Magnesium Level 2.3, Total Bilirubin 1.6H, Aspartate Amino Transf (AST/SGOT) 250H, Alanine Aminotransferase (ALT/SGPT) 84H, Alkaline Phosphatase 41, Total Protein 5.6L, Albumin 3.1L Microbiology 08/04/17 Gram Stain - Final, Resulted 08/04/17 Sputum Culture - Preliminary, Resulted Usual/normal patricia isolated. Laboratory Tests 08/04/17 10:00 08/04/17 16:03 08/05/17 03:05 08/06/17 03:10 A/P: Assessment: Acute STEMI involving inferior wall of the LV; also has RV infarct Card cath and PCIs of 08/04/17: Mid vessel occlusion of the right coronary artery treated with overlapping stents (Alpine Xience 2.75 x 28 mm the distal part of which extends slightly into the right ventricular branch) and Alpine Xience 2.75 x 12 mm stent that was placed through the expanded struts of the previous stent and overlaps the stent to some degree. There is no significant residual stenosis in the right coronary artery and the flow was normal, but right ventricular branch was lost during the procedure due to infarct-related thrombus. A 90% to 95% stenosis of the proximal left circumflex artery, which was treated with stenting with Alpine Xience 2.25 x 12 mm stent with reduction of stenosis to 0% residual. The left anterior descending artery has diffuse mild -to-moderate disease Chest soreness post chest compression on 08/04/17 for transient lois-GA cardiac arrest Well preserved global left ventricular systolic function with ejection fraction 60%, postero-basal hypokinesis, no significant mitral regurgitation and mild elevation of left ventricular end-diastolic pressure on LHC of 08/04/17 Echo of 08/04/17: LVEF 55-60%,mild AI, grade I diastolic dysfunction of LV, PASP WNL Paroxysmal atrial fib/flutter Volume overload resulting in acute diastolic CHF Mild to moderate anemia and thrombocytopenia Pneumonia - management per medical services TSH 0.26 on lab of - indicative of hyperthyroidism Hypotension - likely d/t RV infarct Mild thrombocytopenia Elevated transaminases likely d/t STEMI Plan: * Complex management due to multisystem involvement * Add Eliquis due to PAF; d/c Lovenox after adding Eliquis; also d/c aspirin after adding Eliquis (to reduce risk of bleeding and also because of her thrombocytopenia); continue Plavix * Add beta-felton to regimen, because bp seems improved and stable at this time * Repeat echo to eval for pericard eff, because of somewhat low voltage on ECG * Obtain troponin to evaluate infarct size * Reduce iv fluids and give low dose furosemide for fluid overload * Consult Heme for anemia and thrombocytopenia. I called Dr Gardner and spoke with him * Dr Rojas managing her pneumonia * I am signing out to Dr Bailey for Cardiology coverage later today Clinical Quality Measures AMI/AHF: ASA po Prior to arrival: LIZY Silva MD FACP FAC CCDS Aug 06, 2017 08:46
[2017-08-06] MEDS: PANTOPRAZOLE 40 MG/10 ML (PROTONIX) VIAL IV SCH (08:57)
[2017-08-06] MEDS: CLOPIDOGREL 75 MG (PLAVIX) TABLET PO SCH (08:58)
[2017-08-06] MEDS: APIXABAN 5 MG (ELIQUIS) TABLET PO SCH ×2 (08:58→21:58)
[2017-08-06] MEDS: DILTIAZEM INJECTION 125 MG in NS (IVPB) 100 ML IV SCH (08:59)
[2017-08-06] MEDS ORDERED: meTOprolol TARTRATE 25 MG (LOPRESSOR) TABLET PO SCH (09:00)
--- NOTE | 2017-08-06 11:39 | Progress Note-Hospitalist ---
Progress Note HPI/CC on Admission The patient is a 71-year-old white female who was admitted just before midnight last night. She presented with chief complaint of chest pain and had EKG evidence of an acute cardial infarction. She has subsequently undergone cardiac angiography. Post steady a chest x-ray was done which suggested patchy infiltrates bilaterally which had not been present on yesterday's chest x-ray. She is afebrile. She seems to be a bit hoarse. She reported that she had a bit of a cough prior to coming to the hospital and this is more so now. Her white count was 6100 at the ER last night and 8700 today. She reports she does not feel short of breath. Progress Notes/Assess & Plan Date Seen 08/06/17 Time Seen by Provider: 10:30 Admission Dx/Process Patient having more difficulty with shortness of breath and Lasix was given with cardiology order Chest x-ray infiltrate noted but no fever Hemoglobin stable Eating a bit but not much Denies any pain at bedside Reviewed labs and meds No fever, tachycardic at 110 had an episode of atrial fibrillation noted on telemetry Frail, chronically ill, pale, grayish Tachycardic but regular rhythm, crackles in the bases especially right lower lobe 2+ edema noted lower extremities Laboratory Tests 08/06/17 03:10 08/06/17 12:05 Assessment: Acute myocardial infarction status post cardiac catheterization with intervention Volume overload Hypoxia Episode of atrial fib captured on telemetry Infiltrate on chest x-ray but no evidence of bacterial source but increased shortness of breath I suspect cardiac in origin Plan: Monitor hemoglobin Consult pulmonology Monitor closely Patient critically ill Monitor for respiratory compromise Focused Exam Evaluation Lactate Level Laboratory Tests 08/06/17 12:05: Lactic Acid Level 2.07*H Lactic Acid Level Laboratory Tests Test 08/06/17 12:05 Lactic Acid Level 2.07 MMOL/L (0.50-2.00) *H ZHANNA CARMONA DO Aug 06, 2017 11:39
--- NOTE | 2017-08-06 11:53 | Pulmonary Consultation ---
History of Present Illness History of Present Illness Date of Consultation 08/06/17 11:48 Time Seen by Provider: 11:48 Date of Admission History of Present Illness 71yo who initially presented secondary to midsternal severe CP and SOB she was dx with STEMI in inferior leads. Allergies and Home Medications Allergies Coded Allergies: No Known Drug Allergies (Unverified , 08/03/17) Home Medications Aspirin 81 Mg Tablet.dr, 81 MG PO Q48H, (Reported) ALTERNATES COATED ASPIRIN WITH CHEWABLE ASPIRN EVERY OTHER DAY AT SUPPER TIME. Aspirin 81 Mg Tab.chew, 81 MG PO Q48H, (Reported) ALTERNATES COATED ASPIRIN WITH CHEWABLE ASPIRN EVERY OTHER DAY AT SUPPER TIME. Calcium Citrate/Vitamin D3 1 Each Tablet, 1 TAB PO HS, (Reported) Levothyroxine Sodium 50 Mcg Tablet, 50 MCG PO DAILY, (Reported) Losartan Potassium 50 Mg Tablet, 50 MG PO DAILY, (Reported) Pravastatin Sodium 40 Mg Tablet, 40 MG PO HS, (Reported) Venlafaxine HCl 37.5 Mg Tab, 37.5 MG PO DAILY, (Reported) [Allbee W/ C] , 1 TAB PO 1800, (Reported) Past Piulqbl-Vykzyz-Baamun Hx Patient Social History Alcohol Use: Denies Use Recreational Drug Use: No Smoking Status: Never a Smoker 2nd Hand Smoke Exposure: No Recent Foreign Travel: No Contact w/Someone Who Travel: No Recent Infectious Disease Expo: No Recent Hopitalizations: No Immunizations Up To Date Date of Pneumonia Vaccine: Apr 06, 2016 Date of Influenza Vaccine: Apr 06, 2017 Seasonal Allergies Seasonal Allergies: No Surgeries History of Surgeries: Yes Surgeries: Section Respiratory History of Respiratory Disorde: No Cardiovascular History of Cardiac Disorders: Yes Cardiac Disorders: High Cholesterol, Hypertension Neurological History of Neurological Disord: No Reproductive System : No Genitourinary History of Genitourinary Disor: No Gastrointestinal History of Gastrointestinal Di: No Musculoskeletal History of Musculoskeletal Dis: Yes Musculoskeletal Disorders: Arthritis Endocrine History of Endocrine Disorders: Yes (thyroid problems) Endocrine Disorders: Hypothyroidsim HEENT History of HEENT Disorders: No Cancer History of Cancer: No Psychosocial History of Psychiatric Problem: No Integumentary History of Skin or Integumenta: No Blood Transfusions History of Blood Disorders: No Reviewed Nursing Assessment Reviewed/Agree w Nursing PMH: Yes Family Medical History Significant Family History: No Pertinent Family Hx Exam Exam Vital Signs Date Time Temp Pulse Resp B/P (MAP) Pulse Ox O2 Delivery O2 Flow Rate FiO2 08/06/17 10:00 110 14 114/59 (77) 94 Nasal Cannula 3.00 08/06/17 09:13 Nasal Cannula 4.00 08/06/17 09:06 Nasal Cannula 4.00 08/06/17 09:00 100 14 136/86 (103) 96 Nasal Cannula 5.00 08/06/17 08:15 Nasal Cannula 5.00 08/06/17 08:00 102 14 132/89 (103) 94 Nasal Cannula 5.00 08/06/17 07:45 100.5 08/06/17 07:00 102 19 126/78 (94) 90 Nasal Cannula 2.00 08/06/17 07:00 101 08/06/17 06:00 122 30 116/98 (104) 93 Nasal Cannula 2.00 08/06/17 05:00 105 24 122/66 (84) 92 Nasal Cannula 2.00 08/06/17 04:00 104 22 111/67 (82) 91 Nasal Cannula 2.00 08/06/17 04:00 Nasal Cannula 2.00 08/06/17 04:00 97.5 08/06/17 03:38 97.5 08/06/17 03:00 107 17 109/65 (80) 93 Nasal Cannula 2.00 08/06/17 02:00 91 17 109/62 (78) 92 Nasal Cannula 2.00 08/06/17 01:00 85 08/06/17 01:00 87 27 96/58 (71) 93 Nasal Cannula 2.00 08/06/17 00:00 Nasal Cannula 2.00 08/06/17 00:00 99.6 89 17 107/62 (77) 91 Nasal Cannula 2.00 08/05/17 23:00 93 26 98/62 (74) 93 Nasal Cannula 2.00 08/05/17 23:00 Nasal Cannula 2.00 08/05/17 22:00 93 24 106/67 (80) 93 Nasal Cannula 2.00 08/05/17 21:39 100.4 08/05/17 21:00 92 22 117/72 (87) 94 Nasal Cannula 2.00 08/05/17 21:00 100.7 08/05/17 20:15 101.5 Nasal Cannula 2.00 08/05/17 20:13 101.5 08/05/17 20:00 96 18 136/77 (96) 97 Nasal Cannula 2.00 08/05/17 20:00 Nasal Cannula 2.00 08/05/17 19:00 96 08/05/17 19:00 96 21 121/65 (83) 95 Nasal Cannula 2.00 08/05/17 18:00 101 10 121/74 (90) 92 Nasal Cannula 2.00 08/05/17 17:00 88 17 109/66 (80) 92 Nasal Cannula 2.00 08/05/17 16:00 97.4 Nasal Cannula 2.00 08/05/17 16:00 93 14 108/67 (81) 92 Nasal Cannula 2.00 08/05/17 16:00 Nasal Cannula 2.00 08/05/17 15:00 92 13 107/64 (78) 92 Nasal Cannula 2.00 08/05/17 14:00 97 15 113/84 (94) 90 Nasal Cannula 2.00 08/05/17 13:00 90 08/05/17 13:00 90 20 98/69 (79) 90 Nasal Cannula 2.00 08/05/17 12:00 Nasal Cannula 2.00 08/05/17 12:00 98.4 Nasal Cannula 2.00 08/05/17 12:00 87 19 104/68 (80) 96 Nasal Cannula 2.00 I & O 08/06/17 07:00 Intake Total 3940 ml Output Total 1700 ml Balance 2240 ml General Appearance: Mild Distress HEENT: Normal ENT Inspection Neck: Normal Inspection Respiratory: Chest Non Tender, Lungs Clear, Normal Breath Sounds, No Accessory Muscle Use, No Respiratory Distress Cardiovascular: Regular Rate, Rhythm, No Murmur Capillary Refill: Less Than 3 Seconds Extremity: Normal Capillary Refill, Normal Inspection, Normal Range of Motion, Non Tender, No Calf Tenderness, No Pedal Edema Neurologic/Psychiatric: Alert, Oriented x3, No Motor/Sensory Deficits, Normal Mood/Affect Skin: Normal Color, Warm/Dry Lymphatic: No Adenopathy Results Lab Laboratory Tests 08/04/17 16:03 08/05/17 03:05 08/06/17 03:10 Assessment/Plan Assessment/Plan SOB probably secondary to pneumonia -start zosyn -lance culture -check LA and BNP STEMI post cath CAD Afib/flutter 255 JUANA WILLS DO Aug 06, 2017 11:53
[2017-08-06] MEDS ORDERED: PIPERACILLIN SODIUM/TAZOBACTAM 4.5 GM in NS (IVPB) 100 ML IV NR (12:00)
[2017-08-06 12:37] LABS: BASOPHILS % (AUTO) 0 % (0-10); EOSINOPHILS % (AUTO) 0 % (0-10); HEMATOCRIT 27 % (35-52); LYMPHOCYTES # (AUTO) 0.7 X 10^3 (1.0-4.0); LYMPHOCYTES % (AUTO) 8 % (12-44); MEAN CORPUSCULAR HEMOGLOBIN 32 PG (25-34); MEAN CORPUSCULAR HGB CONC 33 G/DL (32-36); MEAN CORPUSCULAR VOLUME 96 FL (80-99); MEAN PLATELET VOLUME 10.7 FL (7.4-10.4); MONOCYTES # (AUTO) 0.5 X 10^3 (0.0-1.0); MONOCYTES % (AUTO) 6 % (0-12); NEUTROPHILS # (AUTO) 7.9 X 10^3 (1.8-7.8); NEUTROPHILS % (AUTO) 87 % (42-75); PLATELET COUNT 116 10^3/uL (130-400); RED CELL DISTRIBUTION WIDTH 12.3 % (10.0-14.5); WHITE BLOOD COUNT 9.1 10^3/uL (4.3-11.0)
[2017-08-06 13:16] LABS: LYMPHOCYTES % (MANUAL) 5 %; MONOCYTES % (MANUAL) 6 %; NEUTROPHILS % (MANUAL) 89 %; RBC MORPH NORMAL
[2017-08-06] MEDS ORDERED: ASPIRIN 81 MG CHEW (CHILDREN'S ASA) PO ONE (13:30)
[2017-08-06] MEDS ORDERED: meTOprolol TARTRATE 50 MG (LOPRESSOR) TAB PO ONE (13:30)
[2017-08-06 13:58] LABS: BILIRUBIN,URINE NEGATIVE (NEGATIVE); CLARITY,URINE CLEAR; COLOR,URINE YELLOW; GLUCOSE, URINE (UA) NEGATIVE (NEGATIVE); KETONES,URINE NEGATIVE (NEGATIVE); LEUKOCYTE ESTERASE ,URINE NEGATIVE (NEGATIVE); NITRITE,URINE NEGATIVE (NEGATIVE); PH,URINE 5 (5-9); PROTEIN,URINE 2+ (NEGATIVE); UROBILINOGEN,URINE NORMAL (NORMAL)
[2017-08-06 14:17] LABS: BACTERIA,URINE TRACE /HPF; HYALINE CASTS, URINE RARE /LPF; SQUAMOUS EPITHELIAL CELL,UR 0-2 /HPF; WBC,URINE 0-2 /HPF
[2017-08-06] MEDS: ACETAMINOPHEN 325 MG TABLET/CAPLET (TYLENOL) PO PRN (16:46)
[2017-08-06] MEDS: PIPERACILLIN SODIUM/TAZOBACTAM 4.5 GM in NS (IVPB) 100 ML IV SCH (18:10)
--- NOTE | 2017-08-06 19:29 | CONSULTATION REPORT ---
DATE OF SERVICE: 08/06/2017 REFERRING PHYSICIAN: Germaine Schumacher MD, MA, FACP, FACC. PRIMARY PHYSICIAN: Benny Boyd DO. The patient is admitted to ICU bed 1. IMPRESSION: 1. A 71-year-old female admitted to the hospital with an unstable angina, status post cardiac catheterization with stent placement. 2. ST-elevation myocardial infarction probably involving the right ventricle. 3. Use of heparin bolus and drip in the emergency room and during the early part of admission, Integrilin, aspirin, Plavix and Eliquis. 4. Thrombocytopenia, probably related to heparin versus other medications versus DIC versus other. RECOMMENDATIONS: 1. Repeat CBC and chemistry panel tomorrow morning. Also obtain fibrinogen, D-dimer. Continue management of STEMI and pneumonia as you are doing. 2. Avoid heparin and heparin-related products. 3. Monitor CBC serially. BRIEF HISTORY: The patient is a 71-year-old female, who was evaluated at the emergency room because of left ear and jaw pain of 1 day duration. This was felt to be anginal and the patient was started on heparin bolus and drip and cardiology consultation was obtained. The patient underwent a cardiac catheterization with a significant coronary artery disease requiring 2 stents placement. In spite of this, the patient had an STEMI. She was also diagnosed with pneumonia and is on antibiotics. During this hospitalization, the patient was treated with heparin, Lovenox, Integrilin, Plavix, aspirin and Eliquis. She was noted to have worsening thrombocytopenia and hematology consultation was requested. PAST MEDICAL HISTORY: Significant for hypertension and hypercholesterolemia for 10 or more years and has been on treatment. Prior surgeries include in the past. She has hypothyroidism for a few decades and is on replacement. She has osteoarthritis involving the major joints. SOCIAL HISTORY: The patient is and lives in [place], [place]. They have three adult sons, two of whom live close by and one son lives in [place], [place]. She denied any tobacco, alcohol or other recreational drug use. She worked at [employer] for approximately 20 years and retired in 2011. FAMILY HISTORY: Significant for coronary artery disease and diabetes mellitus in her father and brother. Mother had coronary artery disease and colon cancer. Sister was diagnosed with colon cancer. REVIEW OF SYSTEMS: The patient has had screening colonoscopies with no major abnormalities. PHYSICAL EXAMINATION: GENERAL: Showed an elderly female, awake and oriented, in moderate respiratory distress at the time of evaluation. VITAL SIGNS: Temperature was 100.0, pulse rate 117, respirations 21, blood pressure 141/91, pulse oximetry showed 98% on 4 liters of oxygen by nasal cannula. HEENT: Normocephalic, extraocular muscles intact, conjunctivae pink, oral mucosa moist. NECK: Supple, with no JVD. No cervical, supraclavicular or axillary lymphadenopathy palpable. CHEST: Symmetrical. LUNGS: Slightly diminished breath sounds bilaterally without wheezes or rales. CARDIOVASCULAR: Borderline tachycardic, regular with no murmurs heard. ABDOMEN: Soft, nontender with no hepatosplenomegaly or other masses palpable. EXTREMITIES: Showed no edema or petechiae. LABORATORY DATA: CBC done at the time of admission showed white count of 6.1, hemoglobin 14.5 and platelet count 144,000 with neutrophil count of 1.4 and lymphocyte count 3.7. CBC done today morning showing white count of 8.6, hemoglobin 9.3, platelet count 111 with a neutrophil count 6.4 and lymphocyte count 1.2. Repeat CBC done today at noon showed white count of 9.1, hemoglobin 9.0 and platelet count 116,000 with neutrophil count 7.9 and lymphocyte count 0.7. Chemistry panel done today showed relatively normal electrolytes. BUN was 8, creatinine 0.58 with GFR more than 60 mL per minute. Nonfasting glucose was 117. Total bilirubin was 1.6, AST 250, ALT 84 and albumin level of 3.1. Troponin level was elevated at 34.67. UA was unremarkable. Chest x-ray done today showed persistent involvement of both lungs by pneumonia/atelectasis more in the right lung. This has been stable when compared to the previous study from two days ago. Thank you for allowing me to participate in this patient's care. I will follow the patient with you and make appropriate recommendations. Job ID: [id number] DocumentID: [id number] Dictated Date: 08/06/2017 15:45:16 Camera Prototyping Engineer Date: 08/06/2017 19:29:00 Dictated By: OLIVIA BANKS MD
[2017-08-06] MEDS: ATORVASTATIN 80 MG (LIPITOR) TABLET PO SCH (21:57)
[2017-08-06] MEDS: meTOprolol TARTRATE 50 MG (LOPRESSOR) TAB PO SCH (21:57)
[2017-08-07] VITALS (23 sets, daily range): BP systolic 93–155; BP diastolic 51–94
[2017-08-07] MEDS: PIPERACILLIN SODIUM/TAZOBACTAM 4.5 GM in NS (IVPB) 100 ML IV SCH ×3 (01:58→17:41)
[2017-08-07 03:30] LABS: BASOPHILS % (AUTO) 0 % (0-10); EOSINOPHILS # (AUTO) 0.1 10^3/uL (0.0-0.3); EOSINOPHILS % (AUTO) 1 % (0-10); HEMATOCRIT 28 % (35-52); HEMOGLOBIN 9.2 G/DL (11.5-16.0); LYMPHOCYTES # (AUTO) 0.9 X 10^3 (1.0-4.0); LYMPHOCYTES % (AUTO) 10 % (12-44); MEAN CORPUSCULAR HEMOGLOBIN 32 PG (25-34); MEAN CORPUSCULAR HGB CONC 33 G/DL (32-36); MEAN CORPUSCULAR VOLUME 97 FL (80-99); MONOCYTES # (AUTO) 0.6 X 10^3 (0.0-1.0); MONOCYTES % (AUTO) 7 % (0-12); NEUTROPHILS # (AUTO) 7.8 X 10^3 (1.8-7.8); NEUTROPHILS % (AUTO) 83 % (42-75); PLATELET COUNT 121 10^3/uL (130-400); RED BLOOD COUNT 2.88 10^6/uL (4.35-5.85); RED CELL DISTRIBUTION WIDTH 12.3 % (10.0-14.5); WHITE BLOOD COUNT 9.4 10^3/uL (4.3-11.0)
[2017-08-07 03:41] LABS: FIBRIN DEGRADATION PRODUCTS 3.01 UG/ML (0.00-0.49)
[2017-08-07 04:03] LABS: ALANINE AMINOTRANSFERASE 75 U/L (0-55); ALBUMIN 3.2 GM/DL (3.2-4.5); ALKALINE PHOSPHATASE 56 U/L (40-136); BILIRUBIN,TOTAL 2.1 MG/DL (0.1-1.0); BUN/CREATININE RATIO 21; CALCIUM 8.2 MG/DL (8.5-10.1); CARBON DIOXIDE 24 MMOL/L (21-32); CHLORIDE 108 MMOL/L (98-107); CREATININE SERUM 0.61 MG/DL (0.60-1.30); GFR ESTIMATED > 60; GLUCOSE 118 MG/DL (70-105); MAGNESIUM 2.1 MG/DL (1.8-2.4); PHOSPHORUS 1.2 MG/DL (2.3-4.7); POTASSIUM 3.8 MMOL/L (3.6-5.0); SODIUM 138 MMOL/L (135-145); TOTAL PROTEIN 6.1 GM/DL (6.4-8.2)
[2017-08-07] MEDS ORDERED: POT PHOS/NA PHOS (K-PHOS NEUTRAL) PO ONE (05:15)
[2017-08-07] MEDS: NS IV 1000 ML 1,000 ML IV SCH (05:23)
--- NOTE | 2017-08-07 06:06 | Pulmonary Progress Note ---
Subjective Time Seen by Provider: 06:41 Subjective/Events-last exam Pts SOB is currently worse and she does have accessory muscle use. Focused Exam Evaluation Lactate Level Laboratory Tests 08/06/17 12:05: Lactic Acid Level 2.07*H 08/06/17 14:15: Lactic Acid Level 2.02*H Exam Exam Vital Signs Date Time Temp Pulse Resp B/P (MAP) Pulse Ox O2 Delivery O2 Flow Rate FiO2 08/07/17 05:00 88 16 142/92 (109) 93 Nasal Cannula 4.00 08/07/17 04:00 87 19 135/88 (104) 94 Nasal Cannula 4.00 08/07/17 03:55 95 Nasal Cannula 4.00 08/07/17 03:00 99.4 89 22 135/79 (97) 93 Nasal Cannula 4.00 08/07/17 02:00 84 22 109/70 (83) 95 Nasal Cannula 4.00 08/07/17 01:00 84 08/07/17 01:00 128 30 114/83 (93) 93 Nasal Cannula 4.00 08/07/17 00:00 96 Nasal Cannula 4.00 08/07/17 00:00 98.7 82 24 100/63 (75) 96 Nasal Cannula 4.00 08/06/17 23:59 Nasal Cannula 4.00 08/06/17 23:00 76 30 100/70 (80) 95 Nasal Cannula 4.00 08/06/17 22:00 89 28 97/69 (78) 94 Nasal Cannula 4.00 08/06/17 21:00 129 18 102/76 (85) 98 Nasal Cannula 4.00 08/06/17 20:00 84 21 93/62 (72) 95 Nasal Cannula 4.00 08/06/17 19:45 Nasal Cannula 4.00 08/06/17 19:00 97.0 130 20 110/83 (92) 96 Nasal Cannula 4.00 08/06/17 19:00 130 08/06/17 18:11 99.0 08/06/17 18:00 129 19 93/69 (77) 98 Nasal Cannula 4.00 08/06/17 17:00 121 22 94/75 (81) 95 Nasal Cannula 4.00 08/06/17 16:00 133 22 105/84 (91) 99 Nasal Cannula 4.00 08/06/17 16:00 Nasal Cannula 4.00 08/06/17 15:00 93 36 115/70 (85) 96 Nasal Cannula 4.00 08/06/17 14:00 117 21 98 Nasal Cannula 4.00 08/06/17 13:50 100.0 08/06/17 13:45 Nasal Cannula 4.00 08/06/17 13:00 103 24 141/91 (108) 96 Nasal Cannula 3.00 08/06/17 13:00 105 08/06/17 12:45 Nasal Cannula 4.00 08/06/17 12:11 100.8 08/06/17 12:00 101 18 130/71 (90) 96 Nasal Cannula 3.00 08/06/17 11:00 122 17 122/87 (99) 94 Nasal Cannula 3.00 08/06/17 10:00 110 14 114/59 (77) 94 Nasal Cannula 3.00 08/06/17 09:13 Nasal Cannula 3.00 08/06/17 09:06 Nasal Cannula 4.00 08/06/17 09:00 100 14 136/86 (103) 96 Nasal Cannula 5.00 08/06/17 08:15 Nasal Cannula 5.00 08/06/17 08:00 102 14 132/89 (103) 94 Nasal Cannula 5.00 08/06/17 07:45 100.5 08/06/17 07:00 102 19 126/78 (94) 90 Nasal Cannula 2.00 08/06/17 07:00 101 I & O 08/07/17 07:00 Intake Total 2516 ml Output Total 2700 ml Balance -184 ml General Appearance: Anxious, Moderate Distress HEENT: Normal ENT Inspection Neck: Normal Inspection Respiratory: Chest Non Tender, Accessory Muscle Use, Crackles, Respiratory Distress Cardiovascular: Regular Rate, Rhythm, No Murmur Capillary Refill: Less Than 3 Seconds Extremity: Normal Capillary Refill, Normal Inspection, Normal Range of Motion, Non Tender, No Calf Tenderness, No Pedal Edema Neurologic/Psychiatric: Alert, Oriented x3, No Motor/Sensory Deficits, Normal Mood/Affect Skin: Normal Color, Warm/Dry Lymphatic: No Adenopathy Results Lab Laboratory Tests 08/06/17 03:10 08/06/17 12:05 08/07/17 03:05 Assessment/Plan Assessment/Plan Acute Respiratory failure secondary to pneumonia vs pulmonary edema -Continue zosyn -lance culture pending -repeat check LA and BNP -Influenza is negative -CHeck ABG Hemoptysis r/o PE -PT is on anticoagulation however if this is HIT she needs to be on argatroban or other direct thrombin inhibitor -Check CTA -Check bilateral dopplers Thrombocytopenia r/o HIT -Hemeonc is following -CHeck HIT and peripheral smear -Need to change anticoagulation to Angiomax until HIT is ruled out Hep is on hold STEMI post cath -plavix CAD Afib/flutter Discussed with Dr. Lindo, pharmacy and medical staff regarding treatment plan. Critical Care: Critically Ill Patient Time spent with patient (mins): 60 JUANA WILLS DO Aug 07, 2017 06:06
[2017-08-07 06:21] LABS: ABSOLUTE RETIC # 70 10e9/L (24-90); BASOPHILS % (AUTO) 0 % (0-10); EOSINOPHILS % (AUTO) 0 % (0-10); HEMATOCRIT 28 % (35-52); HEMOGLOBIN 9.2 G/DL (11.5-16.0); LYMPHOCYTES # (AUTO) 0.8 X 10^3 (1.0-4.0); LYMPHOCYTES % (AUTO) 9 % (12-44); MEAN CORPUSCULAR HEMOGLOBIN 32 PG (25-34); MEAN CORPUSCULAR HGB CONC 33 G/DL (32-36); MEAN CORPUSCULAR VOLUME 97 FL (80-99); MEAN PLATELET VOLUME 10.6 FL (7.4-10.4); MONOCYTES # (AUTO) 0.6 X 10^3 (0.0-1.0); MONOCYTES % (AUTO) 7 % (0-12); NEUTROPHILS # (AUTO) 7.2 X 10^3 (1.8-7.8); NEUTROPHILS % (AUTO) 84 % (42-75); PLATELET COUNT 130 10^3/uL (130-400); RED CELL DISTRIBUTION WIDTH 12.3 % (10.0-14.5); RETICULOCYTE % 2.41 % (0.50-2.40); WHITE BLOOD COUNT 8.6 10^3/uL (4.3-11.0)
[2017-08-07] MEDS ORDERED: morphine INJ 4 MG/ML 1 ML (VIAL/SYRINGE) IVP PRN (06:30)
[2017-08-07 06:38] LABS: BAND NEUTROPHILS 1 %; BASOPHILS % (MANUAL) 0 %; EOSINOPHILS % (MANUAL) 0 %; LYMPHOCYTES % (MANUAL) 7 %; MONOCYTES % (MANUAL) 5 %; NEUTROPHILS % (MANUAL) 87 %; POLYCHROMASIA SLIGHT
[2017-08-07 06:45] LABS: ABG BASE EXCESS -2.2 MMOL/L (-2.5-2.5); ABG OXYGEN SATURATION 88 % (94-100); ABG PCO2 36 MMHG (35-45); ABG PO2 53 MMHG (79-93); ABG TCO2 22.7 MMOL/L (21.0-31.0)
[2017-08-07 06:46] LABS: ALLENS TEST YES-POS; INSPIRED O2 4L NC; PATIENT TEMP 99.3; VENTILATOR NO
--- NOTE | 2017-08-07 06:55 | Diagnostic Imaging Report ---
INDICATION: Shortness of air. COMPARISON: 08/05/2017 FINDINGS: Single frontal radiographic view of the chest was obtained and again demonstrates bilateral interstitial opacities, right greater than left. There has been interval progression with development of scattered and confluent alveolar opacities as well. Small right basilar effusion is suspected. There is no large effusion on the left. No pneumothorax is seen on either side. Cardiac silhouette and pulmonary vasculature are within normal limits. Bony structures show no gross acute abnormalities. IMPRESSION: 1. Interval progression of mixed interstitial and alveolar infiltrates, right greater than left. 2. Probable small right basilar effusion. Dictated by: Dictated on workstation # [id number]
[2017-08-07] MEDS ORDERED: BIVALIRUDIN IV SCH ×2 (07:00)
[2017-08-07] MEDS ORDERED: DEXTROSE IV SCH ×2 (07:00)
[2017-08-07] MEDS ORDERED: IOHEXOL 350 MG/ML 150 ML (OMNIPAQUE 350) VIAL IV ONE (08:15)
[2017-08-07] MEDS ORDERED: NS 250 ML (IVPB) BAG IV ONE (08:15)
--- NOTE | 2017-08-07 08:27 | Cardiology Progress Note ---
Subjective Date Seen by Provider: Aug 07, 2017 Time Seen by Provider: 08:22 Subjective/Events-last exam Patient is in a wheelchair, going for CT scan. She is still short of breath at rest. No chest pain. No palpitation. No syncope or near syncopal episodes. Review of Systems General: No Chills, No Night Sweats, No Fatigue, Malaise, No Appetite, No Other HEENT: No Head Aches, No Visual Changes, No Eye Pain, No Ear Pain, No Dysphasia , No Sinus Congestion, No Post Nasal Drip, No Sore Throat, No Other Pulmonary: Dyspnea, Cough, No Pleuritic Chest Pain, No Other Cardiovascular: Chest Pain, Edema, No: Palpitations, Orthopnea, Paroxysmal Noc. Dyspnea, Lt Headedness, Other Focused Exam Evaluation Lactate Level Laboratory Tests 08/06/17 12:05: Lactic Acid Level 2.07*H 08/06/17 14:15: Lactic Acid Level 2.02*H 08/07/17 06:10: Lactic Acid Level 1.36 Lactic Acid Level Laboratory Tests Test 08/07/17 06:10 Lactic Acid Level 1.36 MMOL/L (0.50-2.00) Objective-Cardiology Exam Last Set of Vital Signs Vital Signs 08/07/17 08/07/17 08/07/17 08/07/17 03:00 06:00 07:00 07:13 Temp 99.4 Pulse 92 Resp 29 B/P (MAP) 145/92 (109) Pulse Ox 94 O2 Delivery Vapotherm O2 Flow Rate 25.00 FiO2 60 Capillary Refill : Less Than 3 Seconds I&O Intake and Output 08/07/17 00:00 Intake Total 3116 ml Output Total 3000 ml Balance 116 ml Intake Oral 916 ml IV Total 2200 ml Output Urine Total 3000 ml # Bowel Movements 4 General: Alert, Oriented X3, Cooperative, Moderate Distress HEENT: Atraumatic, PERRLA Neck: Supple, No JVD, No Thyromegaly Lungs: Normal Air Movement, Other (Bilateral rales) Heart: Regular Rate, Normal S1, Normal S2, No Murmurs, Other (S3 present, peripheral edema) Abdomen: Normal Bowel Sounds, Soft, No Tenderness, No Hepatosplenomegaly, No Masses Extremities: No Clubbing, No Cyanosis, Normal Pulses, No Tenderness/Swelling, Other (Peripheral edema, normal capillary refill) Skin: No Rashes, No Breakdown, No Significant Lesion Neuro: Normal Gait, Normal Speech, Normal Tone, Sensation Intact Psych/Mental Status: Mental Status NL, Mood NL Results Lab Laboratory Tests 08/06/17 12:05 08/07/17 03:05 08/07/17 06:10 A/P-Cardiology Admission Diagnosis Acute ST elevation myocardial infarction Coronary artery disease Acute respiratory failure Hypotension Assessment/Plan Acute STEMI involving inferior wall of the LV; also has RV infarct, recovering slowly Coronary artery disease, status post cardiac catheterization done by Dr. Schumacher on 08/04/17: Mid vessel occlusion of the right coronary artery treated with overlapping stents (Alpine Xience 2.75 x 28 mm the distal part of which extends slightly into the right ventricular branch) and Alpine Xience 2.75 x 12 mm stent that was placed through the expanded struts of the previous stent and overlaps the stent to some degree. There is no significant residual stenosis in the right coronary artery and the flow was normal, but right ventricular branch was lost during the procedure due to infarct-related thrombus. A 90% to 95% stenosis of the proximal left circumflex artery, which was treated with stenting with Alpine Xience 2.25 x 12 mm stent with reduction of stenosis to 0% residual. The left anterior descending artery has diffuse [id number] disease Chest soreness post chest compression on 08/04/17 for transient lois-MT cardiac arrest Acute respiratory failure, shortness of breath, wearing oxygen, given diuretics yesterday with slight improvement, receiving antibiotic, thrombocytopenia, venous Doppler study was negative, still going for CT angiogram of the chest. Thrombocytopenia, improved, unlikely to be HIT, upper she had Dr. Diaz's input Well preserved global left ventricular systolic function with ejection fraction 60%, postero-basal hypokinesis, no significant mitral regurgitation and mild elevation of left ventricular end-diastolic pressure on [facility] of 08/04/17, continue to monitor closely Low voltage on EKG. Echo was described above. Continue to monitor Paroxysmal atrial fib/flutter, currently in sinus rhythm. Started on Eliquis. Continue on Plavix. Monitor closely. Pneumonia - management per medical services TSH 0.26 on lab of - indicative of hyperthyroidism Hypotension - likely d/t RV infarct, the pressure is better at this time. Monitor closely Elevated transaminases likely d/t STEMI Clinical Quality Measures AMI/AHF: ASA po Prior to arrival: No DVT/VTE Risk/Contraindication: Risk Factor Score Per Nursin RFS Level Per Nursing on Admit: 4+=Very High SERGEI CHUN MD Aug 07, 2017 08:27
--- NOTE | 2017-08-07 09:01 | Diagnostic Imaging Report ---
PROCEDURE: CT angiography of the chest with contrast. TECHNIQUE: Multiple contiguous axial images were obtained through the chest after uneventful bolus administration of intravenous contrast. Reconstructed CTA MIP acquisitions were also performed. INDICATION: Respiratory distress. There are no previous CTA chest examinations available for comparison. The plain film examination of the chest performed earlier today noted diffuse alveolar/interstitial pulmonary infiltrates bilaterally. On this exam there are diffuse groundglass densities throughout both lungs, particularly the right lung. These findings are nonspecific but could be secondary to pulmonary edema, pneumonia, atelectasis or a combination of all 3. There are also bilateral pleural effusions. The effusion on the right measures 3.9 CM in maximum depth while the left sided effusion is estimated to be 2.7 CM. The heart is enlarged. There are coronary artery calcifications evident. The aorta is not abnormally dilated. There is no sign of a dissection. There is no defect within the pulmonary arteries to indicate a pulmonary embolism either. There are areas of diminished density throughout the mediastinum. These may represent lymph nodes. These are most likely reactive lymph nodes. The thyroid gland was not well visualized. There is no obvious breast mass. The sections through the upper abdomen show that there is fluid about the gallbladder. The gallbladder wall does not seem to be abnormally thickened but the presence of fluid does raise the question of acute cholecystitis. If further imaging is desired, the ultrasound would be recommended. The bone windows show no sign of a fracture or of a destructive lesion. IMPRESSION: 1. There are diffuse alveolar/interstitial groundglass densities involving both lungs. These may be secondary to pulmonary edema, pneumonia, atelectasis or a combination of all three. There are also bilateral pleural effusions. 2. There is no acute cardiopulmonary abnormality identified otherwise. In particular, there is no sign of a dissection or of a pulmonary embolism. 3. There is no evidence for cholelithiasis or for thickening of the gallbladder wall but there is fluid about the gallbladder. The possible of acute cholecystitis should be considered. Recommendations as above. Dictated by: Dictated on workstation # [id number]
--- NOTE | 2017-08-07 09:04 | Diagnostic Imaging Report ---
Bilateral lower extremity venous Doppler. INDICATION: Leg pain and swelling. FINDINGS: Spectral and color flow imaging of the deep venous system of each lower extremity was performed. There are no prior studies available for comparison. There is generally good blood flow and compressibility at all levels of the deep venous system of each lower extremity. There is no sign of a deep venous thrombosis. IMPRESSION: There is no evidence for deep venous thrombosis of either lower extremity. Dictated by: Dictated on workstation # [id number]
[2017-08-07] MEDS: DILTIAZEM INJECTION 125 MG in NS (IVPB) 100 ML IV SCH (09:07)
[2017-08-07] MEDS: PANTOPRAZOLE 40 MG/10 ML (PROTONIX) VIAL IV SCH (09:42)
[2017-08-07] MEDS: CLOPIDOGREL 75 MG (PLAVIX) TABLET PO SCH (09:42)
[2017-08-07] MEDS: meTOprolol TARTRATE 50 MG (LOPRESSOR) TAB PO SCH ×2 (09:43→20:44)
[2017-08-07] MEDS: ASPIRIN E.C. 81 MG (ECOTRIN) TAB PO SCH (09:45)
--- NOTE | 2017-08-07 12:18 | Progress Note-Hospitalist ---
Progress Note HPI/CC on Admission The patient is a 71-year-old white female who was admitted just before midnight last night. She presented with chief complaint of chest pain and had EKG evidence of an acute cardial infarction. She has subsequently undergone cardiac angiography. Post steady a chest x-ray was done which suggested patchy infiltrates bilaterally which had not been present on yesterday's chest x-ray. She is afebrile. She seems to be a bit hoarse. She reported that she had a bit of a cough prior to coming to the hospital and this is more so now. Her white count was 6100 at the ER last night and 8700 today. She reports she does not feel short of breath. Progress Notes/Assess & Plan Date Seen 08/07/17 Time Seen by Provider: 10:40 Admission Dx/Process Patient was looking more declined this morning so CT angiogram was ordered by Dr. Quan which the result is negative for PE and pulmonary edema is confirmed on that study after I confer with Dr. Quan and he evaluated the image worsening Patient appears to be doing much better [address] Quan started the Vapotherm and although she is still short of breath with the least amount of activity she does feel better and she appears to be better and her coloring is improved Patient still concerned about intubation and I told her within the next 24 hours we will know for sure that she is going in the right direction and I reassured her Zosyn initiated empirically for pneumonia in case that is superimposed within the pulmonary edema Lasix was ordered by Dr. Quan and patient will likely improve after diuresis Checked meds and labs Acutely ill but much improved from yesterday improved coloring less cabrera and pale Tachycardic but regular rhythm, crackles in the bases but much improved 2+ edema noted lower extremities Laboratory Tests 08/07/17 03:05 08/07/17 06:10 Assessment: Acute myocardial infarction status post cardiac catheterization with intervention Volume overload with pulmonary edema on CT scan chest Hypoxia stable on Vapotherm Episode of atrial fib captured on telemetry no further episodes Infiltrate on chest x-ray with pulmonary edema on CT scan Dr Quna ordered IV Lasix but maintained on Zosyn empirically Anemia of critical illness Thrombocytopenia s/p elevated Lactic acid likely due to episode of hypotension the day before Plan: Monitor hemoglobin Consult pulmonology is appreciated Monitor closely Patient critically ill Monitor for respiratory compromise and still may need intubation if respiratory status declines but improved on Vapotherm Focused Exam Evaluation Lactate Level Laboratory Tests 08/06/17 12:05: Lactic Acid Level 2.07*H 08/06/17 14:15: Lactic Acid Level 2.02*H 08/07/17 06:10: Lactic Acid Level 1.36 ZHANNA CARMONA DO Aug 07, 2017 12:18
[2017-08-07] MEDS: FUROSEMIDE 40 MG/4 ML INJ (LASIX) IVP SCH ×2 (12:28→17:41)
--- NOTE | 2017-08-07 17:42 | Progress Note-Standard ---
Standard Progress Note Progress Notes/Assess & Plan Date Seen by Provider: Aug 07, 2017 Time Seen by Provider: 17:00 Progress/Assessment & Plan 71-year-old female admitted with [facility] JEREMIAS, status post stent placement. Patient with increasing shortness of breath and had CTA chest and lower extremity Dopplers earlier today. No evidence of DVT or PE. There was evidence of bilateral infiltrates due to either pulmonary edema or pneumonia and bilateral pleural effusions. Patient was already on antibiotics. She was started on Lasix today and is feeling better by this evening. Hematology consult because of thrombocytopenia. Workup with no evidence of DIC or TTP. Clinical packed less likely to be due to HI T but platelet antibody tests pending. CBC today showed platelets 130,000 and gradually improving. Elevated liver function studies probably due to passive condition due to right heart failure versus cholecystitis as mentioned in the CTA. Monitor serially. Patient is currently on aspirin and Plavix only and has no evidence of bleeding or bruising. Repeat lab work tomorrow. Will follow patient with you. Laboratory Tests 08/07/17 03:05: White Blood Count 9.4, Red Blood Count 2.88L, Hemoglobin 9.2L, Hematocrit 28L, Mean Corpuscular Volume 97, Mean Corpuscular Hemoglobin 32, Mean Corpuscular Hemoglobin Concent 33, Red Cell Distribution Width 12.3, Platelet Count 121L, Mean Platelet Volume 11.0H, Neutrophils (%) (Auto) 83H, Lymphocytes (%) (Auto) 10L, Monocytes (%) (Auto) 7, Eosinophils (%) (Auto) 1, Basophils (%) (Auto) 0, Neutrophils # (Auto) 7.8, Lymphocytes # (Auto) 0.9L, Monocytes # (Auto) 0.6, Eosinophils # (Auto) 0.1, Basophils # (Auto) 0.0, Fibrinogen 762H, D-Dimer 3.01H , Sodium Level 138, Potassium Level 3.8, Chloride Level 108H, Carbon Dioxide Level 24, Anion Gap 6, Blood Urea Nitrogen 13, Creatinine 0.61, Estimat Glomerular Filtration Rate > 60, BUN/Creatinine Ratio 21, Glucose Level 118H, Calcium Level 8.2L, Phosphorus Level 1.2L, Magnesium Level 2.1, Total Bilirubin 2.1H, Aspartate Amino Transf (AST/SGOT) 164H, Alanine Aminotransferase (ALT/SGPT ) 75H, Alkaline Phosphatase 56, Lactate Dehydrogenase 1276H, B-Type Natriuretic Peptide 692.7H, Total Protein 6.1L, Albumin 3.2 08/07/17 06:10: White Blood Count 8.6, Red Blood Count 2.90L, Hemoglobin 9.2L, Hematocrit 28L, Mean Corpuscular Volume 97, Mean Corpuscular Hemoglobin 32, Mean Corpuscular Hemoglobin Concent 33, Red Cell Distribution Width 12.3, Platelet Count 130, Mean Platelet Volume 10.6H, Neutrophils (%) (Auto) 84H, Lymphocytes (%) (Auto) 9L, Monocytes (%) (Auto) 7, Eosinophils (%) (Auto) 0, Basophils (%) (Auto) 0, Neutrophils # (Auto) 7.2, Lymphocytes # (Auto) 0.8L, Monocytes # (Auto) 0.6, Eosinophils # (Auto) 0.0, Basophils # (Auto) 0.0, Neutrophils % (Manual) 87, Lymphocytes % (Manual) 7, Monocytes % (Manual) 5, Eosinophils % (Manual) 0, Basophils % (Manual) 0, Band Neutrophils 1, Polychromasia SLIGHT, Absolute Reticulocyte Count 70, Percent Reticulocyte Count 2.41H, Lactic Acid Level 1.36 08/07/17 06:30: Blood Gas Puncture Site L RAD, Blood Gas Patient Temperature 99.3, Arterial Blood pH 7.40, Arterial Blood Partial Pressure CO2 36, Arterial Blood Partial Pressure O2 53L, Arterial Blood HCO3 22L, Arterial Blood Total CO2 22.7, Arterial Blood Oxygen Saturation 88L, Arterial Blood Base Excess -2.2, Corey Test YES-POS, Blood Gas Ventilator Setting NO, Blood Gas Inspired Oxygen 4L CA 08/07/17 09:50: Activated Partial Thromboplast Time 80H Microbiology 08/06/17 Influenza Types A,B Antigen (DAHIANA) - Final, Complete Focused Exam Evaluation Lactate Level Laboratory Tests 08/06/17 12:05: Lactic Acid Level 2.07*H 08/06/17 14:15: Lactic Acid Level 2.02*H 08/07/17 06:10: Lactic Acid Level 1.36 OLIVIA BANKS Aug 07, 2017 17:42
[2017-08-07] MEDS: ATORVASTATIN 80 MG (LIPITOR) TABLET PO SCH (20:45)
[2017-08-08] VITALS (16 sets, daily range): BP systolic 91–117; BP diastolic 45–95
[2017-08-08] MEDS: PIPERACILLIN SODIUM/TAZOBACTAM 4.5 GM in NS (IVPB) 100 ML IV SCH ×3 (01:49→19:01)
[2017-08-08 02:29] LABS: BASOPHILS % (AUTO) 0 % (0-10); EOSINOPHILS # (AUTO) 0.2 10^3/uL (0.0-0.3); EOSINOPHILS % (AUTO) 2 % (0-10); HEMATOCRIT 27 % (35-52); HEMOGLOBIN 9.4 G/DL (11.5-16.0); LYMPHOCYTES % (AUTO) 10 % (12-44); MEAN CORPUSCULAR HEMOGLOBIN 33 PG (25-34); MEAN CORPUSCULAR HGB CONC 35 G/DL (32-36); MEAN CORPUSCULAR VOLUME 94 FL (80-99); MEAN PLATELET VOLUME 11.4 FL (7.4-10.4); MONOCYTES # (AUTO) 0.7 X 10^3 (0.0-1.0); MONOCYTES % (AUTO) 8 % (0-12); NEUTROPHILS # (AUTO) 7.3 X 10^3 (1.8-7.8); NEUTROPHILS % (AUTO) 80 % (42-75); PLATELET COUNT 162 10^3/uL (130-400); RED BLOOD COUNT 2.89 10^6/uL (4.35-5.85); WHITE BLOOD COUNT 9.2 10^3/uL (4.3-11.0)
--- NOTE | 2017-08-08 02:43 | Pulmonary Progress Note ---
Subjective Time Seen by Provider: 02:48 Subjective/Events-last exam Pt had episode where she desated and became very SOB waking her up from sleep. Fi02 increased to 85%. Focused Exam Evaluation Lactate Level Laboratory Tests 08/06/17 12:05: Lactic Acid Level 2.07*H 08/06/17 14:15: Lactic Acid Level 2.02*H 08/07/17 06:10: Lactic Acid Level 1.36 Exam Exam Vital Signs Date Time Temp Pulse Resp B/P (MAP) Pulse Ox O2 Delivery O2 Flow Rate FiO2 08/08/17 02:00 77 28 117/83 (94) 97 Vapotherm 65.00 25.00 08/08/17 01:36 82 29 92 Vapotherm 65.00 25.00 08/08/17 01:00 80 30 103/67 (79) 91 Vapotherm 45.00 15.00 08/08/17 01:00 80 08/08/17 00:00 80 28 105/69 (81) 91 Vapotherm 45.00 15.00 08/08/17 00:00 97.8 08/08/17 00:00 94 Vapotherm 25.00 45 08/07/17 23:00 79 34 93/51 (65) 93 Vapotherm 45.00 15.00 08/07/17 22:00 80 28 138/91 (107) 98 Vapotherm 45.00 15.00 08/07/17 21:53 86 13 95 Vapotherm 45.00 15.00 08/07/17 21:00 113 21 118/80 (93) 97 Vapotherm 45.00 20.00 08/07/17 20:00 95 Vapotherm 25.00 45 08/07/17 20:00 96 12 105/71 (82) 92 Vapotherm 45.00 20.00 08/07/17 20:00 97.5 08/07/17 19:00 99 08/07/17 19:00 99 29 110/91 (97) 95 Vapotherm 45.00 20.00 08/07/17 18:40 96 Vapotherm 20.00 45 08/07/17 18:00 90 28 133/87 (102) 95 Vapotherm 50.00 25.00 08/07/17 17:00 88 25 124/92 (103) 93 Vapotherm 50.00 25.00 08/07/17 16:35 96 Vapotherm 25.00 50 08/07/17 16:00 86 30 115/70 (85) 93 Vapotherm 50.00 25.00 08/07/17 15:00 92 27 122/76 (91) 90 Vapotherm 50.00 25.00 08/07/17 14:00 85 20 113/89 (97) 97 Vapotherm 50.00 25.00 08/07/17 13:00 87 08/07/17 13:00 83 35 129/89 (102) 93 Vapotherm 50.00 25.00 08/07/17 12:24 99.8 Vapotherm 50.00 25.00 08/07/17 12:23 96 Vapotherm 25.00 50 08/07/17 12:00 82 26 127/89 (102) 92 Vapotherm 50.00 25.00 08/07/17 11:00 87 19 144/89 (107) 93 Vapotherm 60.00 30.00 08/07/17 10:00 95 31 96 Vapotherm 60.00 30.00 08/07/17 09:00 87 31 137/88 (104) 100 Vapotherm 60.00 30.00 08/07/17 08:10 99.3 08/07/17 08:10 94 Nasal Cannula 4.00 08/07/17 08:00 90 20 155/94 (114) 98 Vapotherm 60.00 25.00 08/07/17 07:13 Vapotherm 25.00 60 08/07/17 07:00 92 08/07/17 07:00 89 21 151/90 (110) 94 Vapotherm 60.00 25.00 08/07/17 06:00 89 29 145/92 (109) 94 Nasal Cannula 4.00 08/07/17 05:00 88 16 142/92 (109) 93 Nasal Cannula 4.00 08/07/17 04:00 87 19 135/88 (104) 94 Nasal Cannula 4.00 08/07/17 03:55 95 Nasal Cannula 4.00 08/07/17 03:00 99.4 89 22 135/79 (97) 93 Nasal Cannula 4.00 I & O 08/08/17 07:00 Intake Total 1306.65 ml Output Total 875 ml Balance 431.65 ml General Appearance: Anxious, Moderate Distress HEENT: Normal ENT Inspection Neck: Normal Inspection Respiratory: Chest Non Tender, Accessory Muscle Use, Crackles, Respiratory Distress Cardiovascular: Regular Rate, Rhythm, No Murmur Capillary Refill: Less Than 3 Seconds Extremity: Normal Capillary Refill, Normal Inspection, Normal Range of Motion, Non Tender, No Calf Tenderness, No Pedal Edema Neurologic/Psychiatric: Alert, Oriented x3, No Motor/Sensory Deficits, Normal Mood/Affect Skin: Normal Color, Warm/Dry Lymphatic: No Adenopathy Results Lab Laboratory Tests 08/06/17 03:10 08/06/17 12:05 08/07/17 03:05 08/07/17 06:10 08/08/17 01:40 Assessment/Plan Assessment/Plan Acute Respiratory failure secondary to pulmonary edema -Continue zosyn -lance culture pending -repeat check LA and BNP -Influenza is negative -Bumex 1mg x 1 Pneumonia -Zosyn for now Hemoptysis r/o PE -PT is on anticoagulation however if this is HIT she needs to be on argatroban or other direct thrombin inhibitor -Check CTA -Check bilateral dopplers Thrombocytopenia Doubt HIT -Hemeonc is following -CHeck HIT and peripheral smear Hep is on hold STEMI post cath -plavix CAD Afib/flutter 233 Critical Care: Critically Ill Patient JUANA WILLS DO Aug 08, 2017 02:43
[2017-08-08 02:59] LABS: BUN/CREATININE RATIO 24; CALCIUM 7.8 MG/DL (8.5-10.1); CARBON DIOXIDE 29 MMOL/L (21-32); CHLORIDE 101 MMOL/L (98-107); CREATININE SERUM 0.66 MG/DL (0.60-1.30); GFR ESTIMATED > 60; GLUCOSE 122 MG/DL (70-105); POTASSIUM 2.6 MMOL/L (3.6-5.0); SODIUM 139 MMOL/L (135-145)
[2017-08-08] MEDS ORDERED: BUMETANIDE 1 MG/4 ML (BUMEX) VIAL IV ONE (05:00)
[2017-08-08] MEDS: PANTOPRAZOLE 40 MG (PROTONIX) TAB PO SCH (05:53)
[2017-08-08] MEDS: FUROSEMIDE 40 MG/4 ML INJ (LASIX) IVP SCH ×2 (06:01→19:01)
[2017-08-08] MEDS: MAGNESIUM 1 GM/100 ML IVPB 100 ML IV SCH (06:07)
[2017-08-08] MEDS: POTASSIUM CL 10MEQ/50ML IVPB 50 ML IV SCH (06:09)
[2017-08-08] MEDS: KCL 20 MEQ TAB (K-DUR) PO SCH (06:09)
[2017-08-08] MEDS ORDERED: KCL 20 MEQ TAB (K-DUR) PO ONE ×3 (06:30→10:15)
--- NOTE | 2017-08-08 07:54 | Cardiology Progress Note ---
Subjective Date Seen by Provider: Aug 08, 2017 Time Seen by Provider: 07:50 Subjective/Events-last exam Patient is sitting in a chair, feeling better, breathing better. Denied any chest pain. Review of Systems General: No Chills, No Night Sweats, No Fatigue, No Malaise, No Appetite, No Other HEENT: No Head Aches, No Visual Changes, No Eye Pain, No Ear Pain, No Dysphasia , No Sinus Congestion, No Post Nasal Drip, No Sore Throat, No Other Pulmonary: Dyspnea, No Cough, No Pleuritic Chest Pain, No Other Cardiovascular: No: Chest Pain, Palpitations, Orthopnea, Paroxysmal Noc. Dyspnea, Edema, Lt Headedness, Other Focused Exam Evaluation Lactate Level Laboratory Tests 08/06/17 12:05: Lactic Acid Level 2.07*H 08/06/17 14:15: Lactic Acid Level 2.02*H 08/07/17 06:10: Lactic Acid Level 1.36 Objective-Cardiology Exam Last Set of Vital Signs Vital Signs 08/08/17 08/08/17 08/08/17 00:00 06:00 06:34 Temp 97.8 Pulse 74 Resp 29 B/P (MAP) 104/54 (71) Pulse Ox 97 O2 Delivery Vapotherm O2 Flow Rate 25.00 FiO2 65 Capillary Refill : Less Than 3 Seconds I&O Intake and Output 08/08/17 00:00 Intake Total 2006.65 ml Output Total 1375 ml Balance 631.65 ml Intake Oral 2000 ml IV Total 6.65 ml Output Urine Total 1375 ml # Voids 9 # Bowel Movements 4 General: Alert, Oriented X3, Cooperative, Moderate Distress HEENT: Atraumatic, PERRLA Neck: Supple, No JVD, No Thyromegaly Lungs: Clear to Auscultation, Normal Air Movement Heart: Regular Rate, Normal S1, Normal S2, No Murmurs Abdomen: Normal Bowel Sounds, Soft, No Tenderness, No Hepatosplenomegaly, No Masses Extremities: No Clubbing, No Cyanosis, Normal Pulses, No Tenderness/Swelling, Other (Peripheral edema, normal capillary refill) Skin: No Rashes, No Breakdown, No Significant Lesion Neuro: Normal Gait, Normal Speech, Normal Tone, Sensation Intact Psych/Mental Status: Mental Status NL, Mood NL Results Lab Laboratory Tests 08/08/17 01:40 A/P-Cardiology Admission Diagnosis Acute ST elevation myocardial infarction Coronary artery disease Acute respiratory failure Hypotension Assessment/Plan Acute STEMI involving inferior wall of the LV; also has RV infarct, recovering slowly, transfer to telemetry Coronary artery disease, status post cardiac catheterization done by Dr. Schumacher on 08/04/17: Mid vessel occlusion of the right coronary artery treated with overlapping stents (Alpine Xience 2.75 x 28 mm the distal part of which extends slightly into the right ventricular branch) and Alpine Xience 2.75 x 12 mm stent that was placed through the expanded struts of the previous stent and overlaps the stent to some degree. There is no significant residual stenosis in the right coronary artery and the flow was normal, but right ventricular branch was lost during the procedure due to infarct-related thrombus. A 90% to 95% stenosis of the proximal left circumflex artery, which was treated with stenting with Alpine Xience 2.25 x 12 mm stent with reduction of stenosis to 0% residual. The left anterior descending artery has diffuse [id number] disease Chest soreness post chest compression on 08/04/17 for transient lois-VT cardiac arrest Acute respiratory failure, shortness of breath, improving slowly, continue with diuretics. Monitor electrolytes Hypokalemia, hypophosphatemia, being replaced. Monitor Thrombocytopenia, improved, unlikely to be HIT, followed and managed by Dr. Diaz Well preserved global left ventricular systolic function with ejection fraction 60%, postero-basal hypokinesis, no significant mitral regurgitation and mild elevation of left ventricular end-diastolic pressure on [facility] of 08/04/17, continue to monitor closely Paroxysmal atrial fib/flutter, currently in sinus rhythm, had one episode of atrial fibrillation after her myocardial infarction, has been maintaining sinus rhythm, I will keep monitoring her in telemetry and keep her off Eliquis for now Possible pneumonia, receiving antibiotic, managed by Dr. Quan TSH 0.26 on lab of - indicative of hyperthyroidism Hypotension - likely d/t RV infarct, the pressure is better at this time, tolerating beta blockers well. Continue to monitor Elevated transaminases likely d/t STEMI, continue to monitor Clinical Quality Measures AMI/AHF: ASA po Prior to arrival: No DVT/VTE Risk/Contraindication: Risk Factor Score Per Nursin RFS Level Per Nursing on Admit: 4+=Very High SERGEI CHUN MD Aug 08, 2017 07:53
[2017-08-08] MEDS: POT PHOS/NA PHOS (K-PHOS NEUTRAL) PO SCH ×2 (07:56→20:59)
[2017-08-08] MEDS: ASPIRIN E.C. 81 MG (ECOTRIN) TAB PO SCH (07:56)
[2017-08-08] MEDS: meTOprolol TARTRATE 50 MG (LOPRESSOR) TAB PO SCH ×2 (07:56→21:07)
[2017-08-08] MEDS: CLOPIDOGREL 75 MG (PLAVIX) TABLET PO SCH (07:56)
--- NOTE | 2017-08-08 09:30 | Diagnostic Imaging Report ---
INDICATION: Dyspnea, shortness of air. TECHNIQUE: Single view chest 2:05 AM. CORRELATION STUDY: 08/07/2017 FINDINGS: Heart size is enlarged. The mediastinum is prominent. Rather prominent, somewhat confluent infiltrate-like density throughout both lung nguyen persists, but overall is perhaps minimally improved. Probable small effusions. IMPRESSION: 1. Diffuse confluent bilateral pulmonary infiltrates persist, but perhaps very slightly improved from prior study. Features nonspecific. Given distribution, could be reflective of underlying edema. Superimposed pneumonia is difficult to exclude. Dictated by: Dictated on workstation # [id number]
--- NOTE | 2017-08-08 10:43 | Progress Note-Standard ---
Standard Progress Note Progress Notes/Assess & Plan Date Seen by Provider: Aug 08, 2017 Time Seen by Provider: 10:36 Progress/Assessment & Plan 71-year-old female admitted with [facility], status post stent placement. Patient feeling better today and breathing better. Good urine output with Lasix. No new complaints of. No bleeding or significant bruising. Vital Sign - Last 12Hours Date Time Temp Pulse Resp B/P (MAP) Pulse Ox O2 Delivery O2 Flow Rate FiO2 08/08/17 10:26 100 Vapotherm 25.00 65 08/08/17 08:00 81 27 98/45 (62) 08/08/17 00:00 97.8 Physical exam showed an elderly female, well-developed and nourished, awake and oriented, in no acute distress. Neck supple with no JVD. Lungs with diminished breath sounds in both bases. No wheezes or rales heard. Extremities showed no edema. Laboratory Tests 08/08/17 01:40 A/P: 1. Thrombocytopenia of undetermined etiology, probably medication induced but doubt HIT. Platelet count is continuing to improve and is in the normal range. 2. Acute STEMI of right ventricle, status post stent placement. Currently on aspirin and Plavix. 3. Right heart failure and pulmonary edema, improving with diuresis. 4. Probable pneumonia, currently on broad-spectrum antibiotics. 5. Hypokalemia due to diuretics. 6. Dr. Ozuna covering for hematology/oncology. Please call if any problems or questions. Focused Exam Evaluation Lactate Level Laboratory Tests 08/06/17 12:05: Lactic Acid Level 2.07*H 08/06/17 14:15: Lactic Acid Level 2.02*H 08/07/17 06:10: Lactic Acid Level 1.36 OLIVIA BANKS Aug 08, 2017 10:43
[2017-08-08] MEDS ORDERED: LOPERAMIDE 2 MG (IMODIUM) CAP PO PRN (11:00)
--- NOTE | 2017-08-08 11:08 | Progress Note-Hospitalist ---
Progress Note HPI/CC on Admission The patient is a 71-year-old white female who was admitted just before midnight last night. She presented with chief complaint of chest pain and had EKG evidence of an acute cardial infarction. She has subsequently undergone cardiac angiography. Post steady a chest x-ray was done which suggested patchy infiltrates bilaterally which had not been present on yesterday's chest x-ray. She is afebrile. She seems to be a bit hoarse. She reported that she had a bit of a cough prior to coming to the hospital and this is more so now. Her white count was 6100 at the ER last night and 8700 today. She reports she does not feel short of breath. Progress Notes/Assess & Plan Date Seen 08/08/17 Time Seen by Provider: 10:30 Admission Dx/Process Patient was looking more declined this morning so CT angiogram was ordered by Dr. Quan which the result is negative for PE and pulmonary edema is confirmed on that study after I confer with Dr. Quan and he evaluated the image worsening Patient appears to be doing much better [address] Quan started the Vapotherm and although she is still short of breath with the least amount of activity she does feel better and she appears to be better and her coloring is improved Patient still concerned about intubation and I told her within the next 24 hours we will know for sure that she is going in the right direction and I reassured her Zosyn initiated empirically for pneumonia in case that is superimposed within the pulmonary edema Lasix was ordered by Dr. Quan and patient will likely improve after diuresis Checked meds and labs Acutely ill but much improved from yesterday improved coloring less cabrera and pale Tachycardic but regular rhythm, crackles in the bases but much improved 2+ edema noted lower extremities Laboratory Tests 08/07/17 03:05 08/07/17 06:10 Assessment: Acute myocardial infarction status post cardiac catheterization with intervention Volume overload with pulmonary edema on CT scan chest Hypoxia stable on Vapotherm Episode of atrial fib captured on telemetry no further episodes Infiltrate on chest x-ray with pulmonary edema on CT scan Dr Quan ordered IV Lasix but maintained on Zosyn empirically Anemia of critical illness Thrombocytopenia s/p elevated Lactic acid likely due to episode of hypotension the day before Plan: Monitor hemoglobin Consult pulmonology is appreciated Monitor closely Patient critically ill Monitor for respiratory compromise and still may need intubation if respiratory status declines but improved on Vapotherm 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 Pt states she was not given Eliquis and I informed her we switched her to Bumex. Pt complained of diarrhea Physical exam stable. Lungs sound much better. Pt was informed that she will be step down status and then will move to the floor. Possible DC on Friday was discussed. Pt's joked that she likes being taken care of here, at home she has chores and if she stays longer it will be hard for her to get back in routine AFVSS, Pleasant, O x 3, improved, on commode, at bedside RRR, CTAB much improved diminished in RLL trace edema Laboratory Tests 08/08/17 01:40 Assessment: Acute myocardial infarction status post cardiac catheterization with intervention Volume overload with pulmonary edema on CT scan chest Hypoxia stable on Vapotherm Episode of atrial fib captured on telemetry no further episodes Infiltrate on chest x-ray with pulmonary edema on CT scan Dr Quan ordered IV Lasix but maintained on Zosyn empirically Anemia of critical illness Thrombocytopenia w/o DIC evidence per Hematology s/p elevated Lactic acid likely due to episode of hypotension the day before now resolved Loose stools will start Lactinex and Questran and Imodium Severe Hypokalemia due to diuresis Plan: Step down status Continue Bumex for diuresis Possible DC 08/11/17 Loose stool treatment Replaced potassium Scribed by Tonya Paul under direct supervision of Dr. Ruth Carmona. Focused Exam Evaluation Lactate Level Laboratory Tests 08/06/17 12:05: Lactic Acid Level 2.07*H 08/06/17 14:15: Lactic Acid Level 2.02*H 08/07/17 06:10: Lactic Acid Level 1.36 RUTH CARMONA DO Aug 08, 2017 11:08
[2017-08-08] MEDS: CHOLESTYRAMINE 4 GM (QUESTRAN LITE, PREVALITE) PKT PO SCH ×3 (13:18→20:58)
[2017-08-08] MEDS: LACTOBACILLUS Acidoph/Bulgar (LACTINEX/FLORANEX) TAB PO SCH ×2 (13:18→18:46)
[2017-08-08 15:01] LABS: CARBON DIOXIDE 28 MMOL/L (21-32); CHLORIDE 102 MMOL/L (98-107); CREATININE SERUM 0.65 MG/DL (0.60-1.30); SODIUM 139 MMOL/L (135-145)
[2017-08-08 15:02] LABS: BUN/CREATININE RATIO 23; CALCIUM 7.9 MG/DL (8.5-10.1); GFR ESTIMATED > 60; GLUCOSE 109 MG/DL (70-105)
[2017-08-08] MEDS ORDERED: KCL 20 MEQ TAB (K-DUR) PO NR ×3 (19:00→23:00)
[2017-08-08] MEDS: ATORVASTATIN 80 MG (LIPITOR) TABLET PO SCH (20:59)
[2017-08-09] MEDS: PIPERACILLIN SODIUM/TAZOBACTAM 4.5 GM in NS (IVPB) 100 ML IV SCH ×3 (01:57→17:27)
[2017-08-09 04:00] VITALS: BP 90/62
[2017-08-09 04:11] LABS: BASOPHILS % (AUTO) 0 % (0-10); EOSINOPHILS # (AUTO) 0.4 10^3/uL (0.0-0.3); EOSINOPHILS % (AUTO) 6 % (0-10); HEMATOCRIT 23 % (35-52); LYMPHOCYTES # (AUTO) 0.7 X 10^3 (1.0-4.0); LYMPHOCYTES % (AUTO) 12 % (12-44); MEAN CORPUSCULAR HEMOGLOBIN 33 PG (25-34); MEAN CORPUSCULAR HGB CONC 35 G/DL (32-36); MEAN CORPUSCULAR VOLUME 95 FL (80-99); MEAN PLATELET VOLUME 10.8 FL (7.4-10.4); MONOCYTES # (AUTO) 0.5 X 10^3 (0.0-1.0); MONOCYTES % (AUTO) 7 % (0-12); NEUTROPHILS # (AUTO) 4.6 X 10^3 (1.8-7.8); NEUTROPHILS % (AUTO) 75 % (42-75); PLATELET COUNT 157 10^3/uL (130-400); RED BLOOD COUNT 2.41 10^6/uL (4.35-5.85); RED CELL DISTRIBUTION WIDTH 11.9 % (10.0-14.5); WHITE BLOOD COUNT 6.2 10^3/uL (4.3-11.0)
[2017-08-09 04:41] LABS: ALANINE AMINOTRANSFERASE 53 U/L (0-55); ALBUMIN 2.9 GM/DL (3.2-4.5); ALKALINE PHOSPHATASE 52 U/L (40-136); BILIRUBIN,TOTAL 1.6 MG/DL (0.1-1.0); BUN/CREATININE RATIO 25; CALCIUM 7.7 MG/DL (8.5-10.1); CARBON DIOXIDE 26 MMOL/L (21-32); CHLORIDE 104 MMOL/L (98-107); CREATININE SERUM 0.68 MG/DL (0.60-1.30); GFR ESTIMATED > 60; GLUCOSE 96 MG/DL (70-105); MAGNESIUM 1.7 MG/DL (1.8-2.4); PHOSPHORUS 1.7 MG/DL (2.3-4.7); SODIUM 137 MMOL/L (135-145); TOTAL PROTEIN 5.6 GM/DL (6.4-8.2)
[2017-08-09] MEDS: POTASSIUM CL 10MEQ/50ML IVPB 50 ML IV SCH (06:41)
[2017-08-09] MEDS: MAGNESIUM 1 GM/100 ML IVPB 100 ML IV SCH (06:42)
[2017-08-09] MEDS: KCL 20 MEQ TAB (K-DUR) PO SCH (06:42)
[2017-08-09] MEDS: LACTOBACILLUS Acidoph/Bulgar (LACTINEX/FLORANEX) TAB PO SCH ×3 (06:47→15:34)
[2017-08-09] MEDS: PANTOPRAZOLE 40 MG (PROTONIX) TAB PO SCH (06:47)
[2017-08-09] MEDS: CHOLESTYRAMINE 4 GM (QUESTRAN LITE, PREVALITE) PKT PO SCH ×4 (06:47→21:56)
[2017-08-09 06:48] VITALS: BP 102/66
[2017-08-09] MEDS: FUROSEMIDE 40 MG/4 ML INJ (LASIX) IVP SCH ×2 (06:51→17:25)
[2017-08-09] MEDS: ASPIRIN E.C. 81 MG (ECOTRIN) TAB PO SCH (08:02)
[2017-08-09] MEDS: meTOprolol TARTRATE 50 MG (LOPRESSOR) TAB PO SCH (08:02)
[2017-08-09] MEDS: CLOPIDOGREL 75 MG (PLAVIX) TABLET PO SCH (08:02)
[2017-08-09] MEDS: POT PHOS/NA PHOS (K-PHOS NEUTRAL) PO SCH ×2 (08:03→20:37)
--- NOTE | 2017-08-09 09:50 | Diagnostic Imaging Report ---
INDICATION: Shortness of breath. Portable chest at 03:57 a.m. FINDINGS: There are diffuse alveolar infiltrates in the lungs. There is no appreciable effusion. Heart size is upper limits of normal. IMPRESSION: Diffuse alveolar infiltrates in both lungs similar in appearance to the previous day. Findings are concerning for possible ARDS. Dictated by: Dictated on workstation # [id number]
--- NOTE | 2017-08-09 09:57 | Cardiology Progress Note ---
Subjective Date Seen by Provider: Aug 09, 2017 Time Seen by Provider: 09:53 Subjective/Events-last exam Patient is sitting up in a chair, feeling better, breathing better but still having some shortness of breath, mild diarrhea. Mild pedal edema Review of Systems General: No Chills, No Night Sweats, No Fatigue, No Malaise, No Appetite, No Other HEENT: No Head Aches, No Visual Changes, No Eye Pain, No Ear Pain, No Dysphasia , No Sinus Congestion, No Post Nasal Drip, No Sore Throat, No Other Pulmonary: Dyspnea, No Cough, No Pleuritic Chest Pain, No Other Cardiovascular: Edema, No: Chest Pain, Palpitations, Orthopnea, Paroxysmal Noc. Dyspnea, Lt Headedness, Other Focused Exam Evaluation Lactate Level Laboratory Tests 08/06/17 12:05: Lactic Acid Level 2.07*H 08/06/17 14:15: Lactic Acid Level 2.02*H 08/07/17 06:10: Lactic Acid Level 1.36 Objective-Cardiology Exam Last Set of Vital Signs Vital Signs 08/09/17 08/09/17 08/09/17 08/09/17 04:00 06:48 07:00 08:00 Temp 100.2 Pulse 79 Resp 20 B/P (MAP) 102/66 (78) Pulse Ox 94 O2 Delivery Vapotherm O2 Flow Rate 15.00 FiO2 40 Capillary Refill : Less Than 3 Seconds I&O Intake and Output 08/09/17 00:00 Intake Total 2450 ml Output Total 2100 ml Balance 350 ml Intake Oral 1250 ml IV Total 1200 ml Output Urine Total 2100 ml # Voids 1 # Bowel Movements 6 General: Alert, Oriented X3, Cooperative, Moderate Distress HEENT: Atraumatic, PERRLA Neck: Supple, No JVD, No Thyromegaly Lungs: Normal Air Movement, Other (Wet rales at the) Heart: Regular Rate, Normal S1, Normal S2, No Murmurs Abdomen: Normal Bowel Sounds, Soft, No Tenderness, No Hepatosplenomegaly, No Masses Extremities: No Clubbing, No Cyanosis, Normal Pulses, No Tenderness/Swelling, Other (Peripheral edema, normal capillary refill) Skin: No Rashes, No Breakdown, No Significant Lesion Neuro: Normal Gait, Normal Speech, Normal Tone, Sensation Intact Psych/Mental Status: Mental Status NL, Mood NL Results Lab Laboratory Tests 08/08/17 14:35 08/08/17 16:50 08/09/17 04:00 A/P-Cardiology Admission Diagnosis Acute ST elevation myocardial infarction Coronary artery disease Acute respiratory failure Hypotension Assessment/Plan Acute STEMI involving inferior wall of the LV; also has RV infarct, improving, continue to monitor Anemia, worse today. Maintained on aspirin and Plavix, I will evaluate stool for occult blood and monitor H&H Congestive heart failure, acute left ventricular diastolic dysfunction with right sided heart failure, ischemic cardiomyopathy, borderline hypotensive, I will decrease Lopressor dose, cannot start BRETT inhibitor and/or ARB yet due to hypotension Hypotension - likely d/t RV infarct, I will decrease beta felton dose and monitor blood pressure, continue diuretics at this time Shortness of breath, bilateral pleural effusion, pulmonary edema and questionable pneumonia, receiving diuretics and antibiotics. Continue to monitor closely Hypomagnesemia, I will replace it and monitor electrolytes Coronary artery disease, status post cardiac catheterization done by Dr. Schumacher on 08/04/17: Mid vessel occlusion of the right coronary artery treated with overlapping stents (Alpine Xience 2.75 x 28 mm the distal part of which extends slightly into the right ventricular branch) and Alpine Xience 2.75 x 12 mm stent that was placed through the expanded struts of the previous stent and overlaps the stent to some degree. There is no significant residual stenosis in the right coronary artery and the flow was normal, but right ventricular branch was lost during the procedure due to infarct-related thrombus. A 90% to 95% stenosis of the proximal left circumflex artery, which was treated with stenting with Alpine Xience 2.25 x 12 mm stent with reduction of stenosis to 0% residual. The left anterior descending artery has diffuse [id number] disease Thrombocytopenia, improved, unlikely to be HIT, followed and managed by Dr. Diaz Well preserved global left ventricular systolic function with ejection fraction 60%, postero-basal hypokinesis, no significant mitral regurgitation and mild elevation of left ventricular end-diastolic pressure on [facility] of 08/04/17, continue to monitor closely Paroxysmal atrial fib/flutter, currently in sinus rhythm, had one episode of atrial fibrillation after her myocardial infarction, has been maintaining sinus rhythm, I will keep monitoring her in telemetry and keep her off Eliquis for now TSH 0.26 on lab of [id number] - indicative of hyperthyroidism Elevated transaminases likely d/t STEMI, continue to monitor Clinical Quality Measures AMI/AHF: ASA po Prior to arrival: No DVT/VTE Risk/Contraindication: Risk Factor Score Per Nursin RFS Level Per Nursing on Admit: 4+=Very High SERGEI CHUN MD Aug 09, 2017 09:57
[2017-08-09] MEDS ORDERED: MAGNESIUM 1 GM/100 ML IVPB 100 ML IV ONE (10:00)
--- NOTE | 2017-08-09 12:01 | Progress Note-Hospitalist ---
Progress Note HPI/CC on Admission The patient is a 71-year-old white female who was admitted just before midnight last night. She presented with chief complaint of chest pain and had EKG evidence of an acute cardial infarction. She has subsequently undergone cardiac angiography. Post steady a chest x-ray was done which suggested patchy infiltrates bilaterally which had not been present on yesterday's chest x-ray. She is afebrile. She seems to be a bit hoarse. She reported that she had a bit of a cough prior to coming to the hospital and this is more so now. Her white count was 6100 at the ER last night and 8700 today. She reports she does not feel short of breath. Progress Notes/Assess & Plan Date Seen 08/09/17 Time Seen by Provider: 11:00 Admission Dx/Process Assessment: Acute myocardial infarction status post cardiac catheterization with intervention Volume overload with pulmonary edema on CT scan chest Hypoxia stable on Vapotherm Episode of atrial fib captured on telemetry no further episodes Infiltrate on chest x-ray with pulmonary edema on CT scan Dr Quan ordered IV Lasix but maintained on Zosyn empirically Anemia of critical illness Thrombocytopenia s/p elevated Lactic acid likely due to episode of hypotension the day before Plan: Monitor hemoglobin Consult pulmonology is appreciated Monitor closely Patient critically ill Monitor for respiratory compromise and still may need intubation if respiratory status declines but improved on Vapotherm Diagonsis/Assessment & Plan Pt doing about the same and still on Vapotherm Loose stools are improved Checked meds and labs Denies pain Recovery will be slow so I have ordered PT/OT along with SB and IRF if needed AFVSS, Pleasant, O x 3, improved, in bed, sister at bedside RRR, crackles noted right nguyen diminished bases Trace edema Laboratory Tests 08/08/17 14:35 08/08/17 16:50 08/09/17 04:00 Assessment: Acute myocardial infarction status post cardiac catheterization with intervention Volume overload with pulmonary edema on CT scan chest requiring aggressive diuresis Hypoxia stable on Vapotherm Episode of atrial fib captured on telemetry 3 days ago no further episodes Infiltrate on chest x-ray with pulmonary edema on CT scan Dr Quan ordered IV Lasix but maintained on Zosyn empirically Anemia of critical illness Thrombocytopenia w/o DIC evidence per Hematology s/p elevated Lactic acid likely due to episode of hypotension the day before now resolved Loose stools started Lactinex and Questran and Imodium Severe Hypokalemia due to diuresis replacing per protocol Plan: Step down status Continue Bumex for diuresis SB or IRF Friday Loose stool treatment Replace potassium Slow recovery predicted Focused Exam Evaluation Lactate Level Laboratory Tests 08/06/17 12:05: Lactic Acid Level 2.07*H 08/06/17 14:15: Lactic Acid Level 2.02*H 08/07/17 06:10: Lactic Acid Level 1.36 ZHANNA CARMONA DO Aug 09, 2017 12:01
--- NOTE | 2017-08-09 12:44 | Physical Therapy Evaluation ---
PT Evaluation-General Medical Diagnosis Admission Date Aug 04, 2017 at 02:13 Medical Diagnosis: NC Onset Date: Aug 03, 2017 Therapy Diagnosis Therapy Diagnosis: debility Height/Weight Height (Feet): 5 Height (Inches): 0.00 Weight (Pounds): 141 Weight (Ounces): 2.0 Precautions Precautions/Isolations: Standard Precautions Weight Bear Status Right Lower Extremity: Right Full Weight Bearing Left Lower Extremity: Left Full Weight Bearing Referral Physician: Guicho Reason for Referral: Evaluation/Treatment Medical History Pertinent Medical History: CAD, HTN Current History ED with ear and jaw pain Reviewed History: Yes Prior/Core FIM Prior Level of Function Functional [place] Measure 0=Not Assessed/NA 4=Minimal Assistance 1=Total Assistance 5=Supervision or Setup 2=Maximal Assistance 6=Modified [place] 3=Moderate Assistance 7=Complete [place] Bed Mobility: 7 Transfers (B,C,W/C) (FIM): 7 Gait: 7 PT Evaluation-Current Subjective Patient agrees to PT. Pain Numeric Pain Scale: 0-No Pain Location: No Pain Reported Objective Patient Orientation: Normal For Age Problem Solving: Good Attachments: Oxygen (vaoptherm), IV ROM/Strength ROM Lower Extremities bilateral LE WNL Strength Lower Extremities bilateral LE WNL Integumentary/Posture Integumentary refer to nursing notes Bowel Incontinence: No Bladder Incontinence: No Posture WNL Neuromuscular (Tone, Coordination, Reflexes) grossly intact Sensory Vision: Functional Hearing: Functional Sensation Right Lower Extremit: Intact Sensation Left Lower Extremity: Intact Transfers Functional Brewster Measure 0=Not Assessed/NA 4=Minimal Assistance 1=Total Assistance 5=Supervision or Setup 2=Maximal Assistance 6=Modified [place] 3=Moderate Assistance 7=Complete [place] Transfers (B, C, W/C) (FIM): 7 Scootin Rollin Supine to/from Sit: 7 Sit to/from Stand: 7 Gait Mode of Locomotion: Walk Anticipated Mode of Locomotion: Walk Gait (FIM): 1 Distance (FIM): 1=up to 49 ft Distance: 5' Gait Level of Assist: 7 Gait Assistive Device: None Comments/Gait Description patient is attached to vapotherm and has limited distance Balance Sitting Static: Normal Sitting Dynamic: Normal Standing Static: Normal Standing Dynamic: Normal Assessment/Needs 71 y.. female, will be seen short term by skilled PT to address functional mobility to ensure safe return to home with spouse. Rehab Potential: Good PT Short Term Goals Short Term Goals Time Frame: Aug 13, 2017 Transfers (B,C,W/C) (FIM): 7 Gait (FIM): 7 Distance (FIM): 3=150 ft Gait Level of Assist: 7 Gait Assistive Device: None PT Plan Problem List Problem List: Activity Tolerance Treatment/Plan Treatment Plan: Continue Plan of Care Treatment Plan: Education, Functional Activity Herb, Functional Strength, Gait , Safety, Therapeutic Exercise Treatment Duration: Aug 13, 2017 Frequency: 5 times per week Estimated Hrs Per Day: .25 hour per day Patient and/or Family Agrees t: Yes Discharge Recommendations Therapy D/C Recommendations: Home w/ Family Support Time/GCodes Time In: 1230 Time Out: 1240 Total Billed Treatment Time: 10 Total Billed Treatment 1 visit EVLow 10 min SOFIE SIMMONS PT Aug 09, 2017 12:44
--- NOTE | 2017-08-09 13:45 | Occupational Therapy Eval ---
OT Evaluation-General/PLF Medical Diagnosis Admission Date Aug 04, 2017 at 02:13 Medical Diagnosis: PA Onset Date: Aug 03, 2017 Therapy Diagnosis Therapy Diagnosis: decr act gwendolyn, weakness, decr self care Height/Weight Height (Feet): 5 Height (Inches): 0.00 Weight (Pounds): 141 Weight (Ounces): 2.0 Precautions Precautions/Isolations: Standard Precautions Safety Interventions: None Referral Physician: Guicho Referral Reason: Evaluation/Treatment Medical History Pertinent Medical History: CAD, HTN, Hypothroidism Additional Medical History Hyperlipidemia. Pt reported old L rotator cuff surgery, with good outcome Current History Through ED with ear pain and cold sweats, then developed chest pain. Hypoxia, on vapotherm Reviewed History: Yes Social History Current Living Status: Spouse ADL-Prior Level of Function ADL PLOF Comments Pt reported that she was previously able to manage all of her basic ADLs and home care. She still drives OT Current Status Subjective Pt seen in room, up in bed, agreeable to OT. Pt reported pain 0/10 Appearance Alert, cooperative Mental Status/Objective Attachments: Central Line, Oxygen (vapotherm), Telemetry Current Upper Extremity ROM Grossly WFL bilat. Upper Extremity Strength Grossly 4/5 bilat ADL-Treatment ADL-Current Pt reported that she has been able to transfer herself to BSC positioned beside her bed but calls for help to wipe and to help her get back into bed. Her O2 sats hovered around 86-87% while she was talking and it took a couple minutes of pursed lip breathing to get them back up to 89%. PT eval showed independent bed motility and transfers Functional Leon Measure 0=Not Assessed/NA 4=Minimal Assistance 1=Total Assistance 5=Supervision or Setup 2=Maximal Assistance 6=Modified Leon 3=Moderate Assistance 7=Complete IndependenceIRFPAI Quality Coding Scale 6 Independent with activity with or without an assistive device 5 Patient requires set up or clean up by helper. Patient completes activity by themselves 4 Supervision or touching assist (CGA). [place] provide cues , steadying assist 3 The helper provides less than half the effort to complete the activity 2 The helper provides more than half the effort to complete the activity 1 Dependent. The helper does all the effort to complete an activity 7 Patient refused to complete or attempt activity 9 The patient did not perform the activity before the current illness or injury 88 Not attempted due to Medical conditions or safety concerns Education OT Patient Education: Energy conservation, Purpose of tx/functional activities , Rehab process Teaching Recipient: Patient Teaching Methods: Discussion Response to Teaching: Verbalize Understanding OT Skilled Nursing Goals Recruit Instructor Goals Time Frame: Aug 16, 2017 Eating (FIM): 6 Grooming(FIM): 6 Bathing(FIM): 6 Upper Body Dressing(FIM): 6 Lower Body Dressing(FIM): 6 Toileting(FIM): 6 Toilet/Commode Transfer(FIM): 6 Shower Transfer(FIM): 6 Additional Goals: 1-Demonstrate ADL Tasks, 2-Verbalize Understanding, 3- ImproveStrength/Herb 1=Demonstrate adherence to instructed precautions during ADL tasks. 2=Patient will verbalize/demonstrate understanding of assistive devices/ modifications for ADL. 3=Patient will improve strength/tolerance for activity to enable patient to perform ADL's. OT Education/Plan Problem List/Assessment Assessment: Decreased Activ Tolerance, Decreased UE Strength, Impaired Self- Care Skills Pt would benefit from skilled OT to increase her independence in basic self care and to decrease caregiver burden. Discharge Recommendations Plan/Recommendations: Continue POC Treatment Plan/Plan of Care Treatment,Training & Education: Yes Patient would benefit from OT for education, treatment and training to promote independence in ADL's, mobility, safety and/or upper extremity function for ADL' s. Plan of Care: ADL Retraining, UE Funct Exercise/Act, OTHER (energy conservation education and practice) Treatment Duration: Aug 16, 2017 Frequency: 5 times per week Estimated Hrs Per Day: .25 hour per day (.25 to .5) Agreement: Yes Rehab Potential: Good Time/GCodes Start Time: 13:00 Stop Time: 13:13 Total Time Billed (hr/min): 13 Billed Treatment Time visit, 13 minutes evaluation moderate intensity FER MOSS OT Aug 09, 2017 13:45
[2017-08-09 19:00] VITALS: BP 108/59
[2017-08-09] MEDS: ATORVASTATIN 80 MG (LIPITOR) TABLET PO SCH (20:37)
[2017-08-09] MEDS: meTOprolol TARTRATE 25 MG (LOPRESSOR) TABLET PO SCH (20:38)
[2017-08-09] MEDS: ACETAMINOPHEN 325 MG TABLET/CAPLET (TYLENOL) PO PRN (20:38)
[2017-08-10] VITALS: BP_SYST 100; BP_SYST 92; BP_DIAS 54; BP_DIAS 63
[2017-08-10] MEDS: PIPERACILLIN SODIUM/TAZOBACTAM 4.5 GM in NS (IVPB) 100 ML IV SCH ×3 (02:11→17:13)
[2017-08-10 04:08] LABS: HEMOGLOBIN 8.4 G/DL (11.5-16.0); MEAN PLATELET VOLUME 10.6 FL (7.4-10.4); RED BLOOD COUNT 2.58 10^6/uL (4.35-5.85); WHITE BLOOD COUNT 6.4 10^3/uL (4.3-11.0)
[2017-08-10 04:10] VITALS: BP 86/56
[2017-08-10 04:28] LABS: ALANINE AMINOTRANSFERASE 41 U/L (0-55); ALBUMIN 2.8 GM/DL (3.2-4.5); ALKALINE PHOSPHATASE 59 U/L (40-136); BILIRUBIN,TOTAL 1.6 MG/DL (0.1-1.0); BUN/CREATININE RATIO 19; CALCIUM 8.2 MG/DL (8.5-10.1); CARBON DIOXIDE 27 MMOL/L (21-32); CHLORIDE 102 MMOL/L (98-107); CREATININE SERUM 0.67 MG/DL (0.60-1.30); GFR ESTIMATED > 60; GLUCOSE 105 MG/DL (70-105); POTASSIUM 3.5 MMOL/L (3.6-5.0); SODIUM 138 MMOL/L (135-145); TOTAL PROTEIN 5.7 GM/DL (6.4-8.2)
[2017-08-10] MEDS: LACTOBACILLUS Acidoph/Bulgar (LACTINEX/FLORANEX) TAB PO SCH ×3 (06:20→17:01)
[2017-08-10] MEDS: CHOLESTYRAMINE 4 GM (QUESTRAN LITE, PREVALITE) PKT PO SCH ×4 (06:20→21:26)
[2017-08-10] MEDS: FUROSEMIDE 40 MG/4 ML INJ (LASIX) IVP SCH ×2 (06:52→17:13)
[2017-08-10 08:00] VITALS: BP 106/54
[2017-08-10] MEDS: PANTOPRAZOLE 40 MG (PROTONIX) TAB PO SCH (08:30)
[2017-08-10] MEDS: meTOprolol TARTRATE 25 MG (LOPRESSOR) TABLET PO SCH ×2 (08:30→22:44)
[2017-08-10] MEDS: CLOPIDOGREL 75 MG (PLAVIX) TABLET PO SCH (08:31)
[2017-08-10] MEDS: POT PHOS/NA PHOS (K-PHOS NEUTRAL) PO SCH ×2 (08:31→22:44)
[2017-08-10] MEDS: ASPIRIN E.C. 81 MG (ECOTRIN) TAB PO SCH (08:31)
--- NOTE | 2017-08-10 08:44 | Cardiology Progress Note ---
Subjective Date Seen by Provider: Aug 10, 2017 Time Seen by Provider: 08:42 Subjective/Events-last exam Patient is slightly more tired today, her dyspnea is the same. Denied any chest pain. No palpitation. Review of Systems General: No Chills, No Night Sweats, Fatigue, Malaise, No Appetite, No Other HEENT: No Head Aches, No Visual Changes, No Eye Pain, No Ear Pain, No Dysphasia , No Sinus Congestion, No Post Nasal Drip, No Sore Throat, No Other Pulmonary: Dyspnea, No Cough, No Pleuritic Chest Pain, No Other Cardiovascular: No: Chest Pain, Palpitations, Orthopnea, Paroxysmal Noc. Dyspnea, Edema, Lt Headedness, Other Objective-Cardiology Exam Last Set of Vital Signs Vital Signs 08/10/17 08/10/17 08/10/17 04:10 06:37 07:00 Temp 98.2 Pulse 91 Resp 18 B/P (MAP) 86/56 (66) Pulse Ox 96 O2 Delivery Vapotherm O2 Flow Rate 15.00 FiO2 40 Capillary Refill : Less Than 3 Seconds I&O Intake and Output 08/10/17 00:00 Intake Total 2340 ml Output Total 3600 ml Balance -1260 ml Intake Oral 2140 ml IV Total 200 ml Output Urine Total 3600 ml # Voids 5 # Bowel Movements 4 General: Alert, Oriented X3, Cooperative, Moderate Distress HEENT: Atraumatic, PERRLA Neck: Supple, No JVD, No Thyromegaly Lungs: Normal Air Movement, Other (Wet rales at the) Heart: Regular Rate, Normal S1, Normal S2, No Murmurs Abdomen: Normal Bowel Sounds, Soft, No Tenderness, No Hepatosplenomegaly, No Masses Extremities: No Clubbing, No Cyanosis, Normal Pulses, No Tenderness/Swelling, Other (Peripheral edema, normal capillary refill) Skin: No Rashes, No Breakdown, No Significant Lesion Neuro: Normal Gait, Normal Speech, Normal Tone, Sensation Intact Psych/Mental Status: Mental Status NL, Mood NL Results Lab Laboratory Tests 08/10/17 04:00 A/P-Cardiology Admission Diagnosis Acute ST elevation myocardial infarction Coronary artery disease Acute respiratory failure Hypotension Assessment/Plan Acute STEMI involving inferior wall of the LV; also has RV infarct, improving, continue current medications and monitor Anemia, stool for occult blood was not done. Continue to monitor H&H Congestive heart failure, acute left ventricular diastolic dysfunction with right sided heart failure, ischemic cardiomyopathy, borderline hypotensive, add parameters for the beta blockers to hold for systolic blood pressure less than 100, cannot start BRETT inhibitor and/or ARB yet due to hypotension Hypotension - likely d/t RV infarct, I will decrease beta felton dose and monitor blood pressure, continue diuretics at this time Shortness of breath, bilateral pleural effusion, pulmonary edema and questionable pneumonia, receiving diuretics and antibiotics, continue to monitor Hypomagnesemia, better at this time. Continue to monitor Coronary artery disease, status post cardiac catheterization done by Dr. Schumacher on 08/04/17: Mid vessel occlusion of the right coronary artery treated with overlapping stents (Alpine Xience 2.75 x 28 mm the distal part of which extends slightly into the right ventricular branch) and Alpine Xience 2.75 x 12 mm stent that was placed through the expanded struts of the previous stent and overlaps the stent to some degree. There is no significant residual stenosis in the right coronary artery and the flow was normal, but right ventricular branch was lost during the procedure due to infarct-related thrombus. A 90% to 95% stenosis of the proximal left circumflex artery, which was treated with stenting with Alpine Xience 2.25 x 12 mm stent with reduction of stenosis to 0% residual. The left anterior descending artery has diffuse [id number] disease Thrombocytopenia, improved, unlikely to be HIT, followed and managed by Dr. Diaz Well preserved global left ventricular systolic function with ejection fraction 60%, postero-basal hypokinesis, no significant mitral regurgitation and mild elevation of left ventricular end-diastolic pressure on [facility] of 08/04/17, continue to monitor closely Paroxysmal atrial fib/flutter, currently in sinus rhythm, had one episode of atrial fibrillation after her myocardial infarction, has been maintaining sinus rhythm, I will keep monitoring her in telemetry and keep her off Eliquis for now TSH 0.26 on lab of - indicative of hyperthyroidism Elevated transaminases likely d/t STEMI, continue to monitor Clinical Quality Measures AMI/AHF: ASA po Prior to arrival: No DVT/VTE Risk/Contraindication: Risk Factor Score Per Nursin RFS Level Per Nursing on Admit: 4+=Very High SERGEI CHUN MD Aug 10, 2017 08:44
[2017-08-10 12:00] VITALS: BP 103/59
--- NOTE | 2017-08-10 12:05 | Progress Note-Hospitalist ---
Progress Note HPI/CC on Admission The patient is a 71-year-old white female who was admitted just before midnight last night. She presented with chief complaint of chest pain and had EKG evidence of an acute cardial infarction. She has subsequently undergone cardiac angiography. Post steady a chest x-ray was done which suggested patchy infiltrates bilaterally which had not been present on yesterday's chest x-ray. She is afebrile. She seems to be a bit hoarse. She reported that she had a bit of a cough prior to coming to the hospital and this is more so now. Her white count was 6100 at the ER last night and 8700 today. She reports she does not feel short of breath. Progress Notes/Assess & Plan Date Seen 08/10/17 Time Seen by Provider: 10:30 Admission Dx/Process Assessment: Acute myocardial infarction status post cardiac catheterization with intervention Volume overload with pulmonary edema on CT scan chest Hypoxia stable on Vapotherm Episode of atrial fib captured on telemetry no further episodes Infiltrate on chest x-ray with pulmonary edema on CT scan Dr Quan ordered IV Lasix but maintained on Zosyn empirically Anemia of critical illness Thrombocytopenia s/p elevated Lactic acid likely due to episode of hypotension the day before Plan: Monitor hemoglobin Consult pulmonology is appreciated Monitor closely Patient critically ill Monitor for respiratory compromise and still may need intubation if respiratory status declines but improved on Vapotherm Diagonsis/Assessment & Plan Pt doing a bit better and still on Vapotherm Loose stools are much improved Checked meds and labs Denies pain Recovery will be slow so I have ordered PT/OT along with SB and IRF if needed and I have discussed this with her and she is very motivated to improve and work with therapy AFVSS, Pleasant, O x 3, improved, in bed, at bedside RRR, crackles noted right nguyen diminished bases Trace edema Laboratory Tests 08/10/17 04:00 Assessment: Acute myocardial infarction status post cardiac catheterization with intervention Volume overload with pulmonary edema on CT scan chest requiring aggressive diuresis Hypoxia stable on Vapotherm Episode of atrial fib captured on telemetry 4 days ago no further episodes Infiltrate on chest x-ray with pulmonary edema on CT scan Dr Quan ordered IV Lasix but maintained on Zosyn empirically Anemia of critical illness and phlebotomy since hospitalized Thrombocytopenia w/o DIC evidence per Hematology s/p elevated Lactic acid likely due to episode of hypotension the day before now resolved Loose stools started Lactinex and Questran and Imodium now much improved Severe Hypokalemia due to diuresis replacing per protocol Plan: Step down status Continue Bumex for diuresis SB or IRF Friday Loose stool treatment Replace potassium Slow recovery predicted but she is motivated to improve ZHANNA CARMONA DO Aug 10, 2017 12:05
[2017-08-10 17:00] VITALS: BP 100/58
[2017-08-10 20:00] VITALS: BP 107/67
[2017-08-10] MEDS: HYDROCORTISONE 2.5% CREAM (ANUSOL-HC) 30 GM TOP SCH (21:28)
[2017-08-10] MEDS: ATORVASTATIN 80 MG (LIPITOR) TABLET PO SCH (22:44)
[2017-08-11] VITALS: BP 107/62
[2017-08-11] MEDS: PIPERACILLIN SODIUM/TAZOBACTAM 4.5 GM in NS (IVPB) 100 ML IV SCH ×3 (02:49→17:47)
[2017-08-11 03:49] LABS: HEMOGLOBIN 9.5 G/DL (11.5-16.0); RED BLOOD COUNT 2.91 10^6/uL (4.35-5.85); RED CELL DISTRIBUTION WIDTH 12.2 % (10.0-14.5); WHITE BLOOD COUNT 7.8 10^3/uL (4.3-11.0)
[2017-08-11 04:00] VITALS: BP 108/70
[2017-08-11 04:13] LABS: ALANINE AMINOTRANSFERASE 37 U/L (0-55); ALBUMIN 3.1 GM/DL (3.2-4.5); ALKALINE PHOSPHATASE 61 U/L (40-136); BILIRUBIN,TOTAL 1.5 MG/DL (0.1-1.0); BUN/CREATININE RATIO 14; CALCIUM 8.3 MG/DL (8.5-10.1); CARBON DIOXIDE 30 MMOL/L (21-32); CHLORIDE 99 MMOL/L (98-107); CREATININE SERUM 0.69 MG/DL (0.60-1.30); GFR ESTIMATED > 60; GLUCOSE 93 MG/DL (70-105); MAGNESIUM 1.8 MG/DL (1.8-2.4); POTASSIUM 3.1 MMOL/L (3.6-5.0); SODIUM 138 MMOL/L (135-145)
[2017-08-11] MEDS: CHOLESTYRAMINE 4 GM (QUESTRAN LITE, PREVALITE) PKT PO SCH ×4 (07:19→20:32)
[2017-08-11] MEDS: FUROSEMIDE 40 MG/4 ML INJ (LASIX) IVP SCH ×2 (07:19→16:33)
--- NOTE | 2017-08-11 07:35 | Pulmonary Progress Note ---
Subjective Time Seen by Provider: 07:39 Subjective/Events-last exam PT appears a little improved still requiring highflow oxygen. Exam Exam Vital Signs Date Time Temp Pulse Resp B/P (MAP) Pulse Ox O2 Delivery O2 Flow Rate FiO2 08/11/17 07:00 87 08/11/17 04:00 90 Vapotherm 15.00 50 08/11/17 04:00 96.5 77 22 108/70 (83) 95 Vapotherm 50.00 15.00 08/11/17 02:10 93 Vapotherm 15.00 40 08/11/17 01:00 71 08/11/17 00:00 90 Vapotherm 15.00 40 08/11/17 00:00 98.4 78 20 107/62 (77) 90 Vapotherm 40.00 15.00 08/10/17 22:14 93 Vapotherm 15.00 40 08/10/17 21:00 93 Vapotherm 15.00 40 08/10/17 20:00 97.7 85 20 107/67 (80) 93 Vapotherm 40.00 15.00 08/10/17 19:00 90 08/10/17 18:38 93 Vapotherm 15.00 40 08/10/17 17:00 100.0 90 16 100/58 (72) 93 Vapotherm 40.00 15.00 08/10/17 17:00 Vapotherm 15.00 40 08/10/17 14:52 Vapotherm 40.00 10.00 08/10/17 14:35 95 Vapotherm 15.00 40 08/10/17 13:00 71 08/10/17 12:00 98.7 80 16 103/59 (74) 91 Vapotherm 40.00 15.00 08/10/17 09:00 Vapotherm 15.00 40 08/10/17 08:00 99.3 84 18 106/54 (71) 92 Vapotherm 40.00 15.00 I & O 08/11/17 07:00 Intake Total 1750 ml Output Total 4050 ml Balance -2300 ml General Appearance: Anxious, Mild Distress HEENT: Normal ENT Inspection Neck: Normal Inspection Respiratory: Chest Non Tender, Accessory Muscle Use, Crackles, Decreased Breath Sounds, Respiratory Distress Cardiovascular: Regular Rate, Rhythm, No Murmur Capillary Refill: Less Than 3 Seconds Extremity: Normal Capillary Refill, Normal Inspection, Normal Range of Motion, Non Tender, No Calf Tenderness, No Pedal Edema Neurologic/Psychiatric: Alert, Oriented x3, No Motor/Sensory Deficits, Normal Mood/Affect Skin: Normal Color, Warm/Dry Lymphatic: No Adenopathy Results Lab Laboratory Tests 08/10/17 04:00 08/11/17 03:05 Assessment/Plan Assessment/Plan Acute Respiratory failure secondary to pulmonary edema - zosyn -Repeat CXR -Lasix 40mg BID -Cultures are negative -Influenza is negative Pneumonia -Zosyn for now STEMI post cath -plavix CAD Afib/flutter 233 Critical Care: Critically Ill Patient JUANA WILLS DO Aug 11, 2017 07:35
--- NOTE | 2017-08-11 08:22 | Diagnostic Imaging Report ---
INDICATION: Shortness of breath. COMPARISON: 08/09/2017. FINDINGS: There is dense consolidated alveolar infiltrate throughout the right lung. There is persistent perihilar infiltrate in the left upper lobe. Left lower lobe remains clear. The heart is not enlarged. No pleural effusion. No evidence of pulmonary edema. IMPRESSION: 1. Increasing consolidated infiltrate right lung. 2. Persistent alveolar infiltrate left upper lobe. Dictated by: Dictated on workstation # [id number]
[2017-08-11] MEDS: meTOprolol TARTRATE 25 MG (LOPRESSOR) TABLET PO SCH ×2 (08:38→20:30)
[2017-08-11] MEDS: ASPIRIN E.C. 81 MG (ECOTRIN) TAB PO SCH (08:38)
[2017-08-11] MEDS: CLOPIDOGREL 75 MG (PLAVIX) TABLET PO SCH (08:38)
[2017-08-11] MEDS: HYDROCORTISONE 2.5% CREAM (ANUSOL-HC) 30 GM TOP SCH ×2 (08:39→20:32)
[2017-08-11] MEDS: PANTOPRAZOLE 40 MG (PROTONIX) TAB PO SCH (08:39)
[2017-08-11] MEDS: LACTOBACILLUS Acidoph/Bulgar (LACTINEX/FLORANEX) TAB PO SCH ×3 (08:39→16:32)
[2017-08-11] MEDS ORDERED: POTASSIUM CL 10MEQ/50ML IVPB 300 ML IV ONE (09:34)
--- NOTE | 2017-08-11 09:46 | Cardiology Progress Note ---
Subjective Date Seen by Provider: Aug 11, 2017 Time Seen by Provider: 09:44 Subjective/Events-last exam patient is sitting up in a chair, feeling better, still complaining of orthopnea. Generalized fatigue, still requiring high flow oxygen Review of Systems General: No Chills, No Night Sweats, Fatigue, Malaise, No Appetite, No Other HEENT: No Head Aches, No Visual Changes, No Eye Pain, No Ear Pain, No Dysphasia , No Sinus Congestion, No Post Nasal Drip, No Sore Throat, No Other Pulmonary: Dyspnea, Cough, No Pleuritic Chest Pain, No Other Cardiovascular: Edema (Improving), No: Chest Pain, Palpitations, Orthopnea, Paroxysmal Noc. Dyspnea, Lt Headedness, Other Objective-Cardiology Exam Last Set of Vital Signs Vital Signs 08/11/17 08/11/17 08/11/17 08/11/17 04:00 07:00 08:00 09:00 Temp 98.3 Pulse 87 Resp 22 B/P (MAP) 108/70 (83) Pulse Ox 90 O2 Delivery Vapotherm O2 Flow Rate 12.00 FiO2 40 Capillary Refill : Less Than 3 Seconds I&O Intake and Output 08/10/17 23:59 Intake Total 1625 ml Output Total 4550 ml Balance -2925 ml Intake Oral 1325 ml IV Total 300 ml Output Urine Total 4550 ml # Voids 4 # Bowel Movements 1 General: Alert, Oriented X3, Cooperative, Moderate Distress HEENT: Atraumatic, PERRLA Neck: Supple, No JVD, No Thyromegaly Lungs: Normal Air Movement, Other (Bilateral wet rales) Heart: Regular Rate, Normal S1, Normal S2, No Murmurs Abdomen: Normal Bowel Sounds, Soft, No Tenderness, No Hepatosplenomegaly, No Masses Extremities: No Clubbing, No Cyanosis, Normal Pulses, No Tenderness/Swelling, Other (Peripheral edema, normal capillary refill) Skin: No Rashes, No Breakdown, No Significant Lesion Neuro: Normal Gait, Normal Speech, Normal Tone, Sensation Intact Psych/Mental Status: Mental Status NL, Mood NL Results Lab Laboratory Tests 08/11/17 03:05 A/P-Cardiology Admission Diagnosis Acute ST elevation myocardial infarction Coronary artery disease Acute respiratory failure Hypotension Assessment/Plan Acute STEMI involving inferior wall of the LV; also has RV infarct, cardiac catheterization was carried out by Dr. Schumacher, successful intervention on the right coronary artery with occlusion of the right ventricular branch. Feeling better at this time. Anemia, stool for occult blood is negative. H&H are better. Continue to monitor Congestive heart failure, acute left ventricular diastolic dysfunction with right sided heart failure, ischemic cardiomyopathy, borderline hypotensive, add parameters for the beta blockers to hold for systolic blood pressure less than 100, cannot start BRETT inhibitor and/or ARB yet due to hypotension Hypotension - likely d/t RV infarct, better at this time. Continue to monitor Shortness of breath, bilateral pleural effusion, pulmonary edema and questionable pneumonia, receiving diuretics and antibiotics, slow improvement, continue on Zosyn and Lasix and monitor response and tolerance Coronary artery disease, status post cardiac catheterization done by Dr. Schumacher on 08/04/17: Mid vessel occlusion of the right coronary artery treated with overlapping stents (Alpine Xience 2.75 x 28 mm the distal part of which extends slightly into the right ventricular branch) and Alpine Xience 2.75 x 12 mm stent that was placed through the expanded struts of the previous stent and overlaps the stent to some degree. There is no significant residual stenosis in the right coronary artery and the flow was normal, but right ventricular branch was lost during the procedure due to infarct-related thrombus. A 90% to 95% stenosis of the proximal left circumflex artery, which was treated with stenting with Alpine Xience 2.25 x 12 mm stent with reduction of stenosis to 0% residual. The left anterior descending artery has diffuse lhqg-uv-moeeznih disease Thrombocytopenia, improved, unlikely to be HIT, followed and managed by Dr. Diaz Well preserved global left ventricular systolic function with ejection fraction 60%, postero-basal hypokinesis, no significant mitral regurgitation and mild elevation of left ventricular end-diastolic pressure on [facility] of 08/04/17, continue to monitor closely Paroxysmal atrial fib/flutter, currently in sinus rhythm, had one episode of atrial fibrillation after her myocardial infarction, has been maintaining sinus rhythm, I will keep monitoring her in telemetry and keep her off Eliquis for now TSH 0.26 on lab of - indicative of hyperthyroidism Elevated transaminases likely d/t STEMI, continue to monitor Clinical Quality Measures AMI/AHF: ASA po Prior to arrival: No DVT/VTE Risk/Contraindication: Risk Factor Score Per Nursin RFS Level Per Nursing on Admit: 4+=Very High SERGEI CHUN MD Aug 11, 2017 09:46
--- NOTE | 2017-08-11 09:56 | Physical Therapy Daily Note ---
PT Daily Note-Current Subjective Patient agrees to PT. Continues on vapotherm. Pain Numeric Pain Scale: 0-No Pain Location: No Pain Reported Appearance increase SOA with minimal activity and decrease SAO2 to 84% on vapotherm Mental Status Patient Orientation: Normal For Age Attachments: Oxygen (vapotherm), IV Transfers Functional [place] Measure 0=Not Assessed/NA 4=Minimal Assistance 1=Total Assistance 5=Supervision or Setup 2=Maximal Assistance 6=Modified [place] 3=Moderate Assistance 7=Complete IndependenceIRFPAI Quality Coding Scale 6 Independent with activity with or without an assistive device 5 Patient requires set up or clean up by helper. Patient completes activity by themselves 4 Supervision or touching assist (CGA). [place] provide cues , steadying assist 3 The helper provides less than half the effort to complete the activity 2 The helper provides more than half the effort to complete the activity 1 Dependent. The helper does all the effort to complete an activity 7 Patient refused to complete or attempt activity 9 The patient did not perform the activity before the current illness or injury 88 Not attempted due to Medical conditions or safety concerns Transfers (B, C, W/C) (FIM): 5 Scootin Rollin Supine to/from Sit: 5 Sit to/from Stand: 5 Bed to/from Chair: 5 Weight Bearing Right Lower Extremity: Right Full Weight Bearing Left Lower Extremity: Left Full Weight Bearing Gait Training Gait (FIM): 1 Distance (FIM): 1=up to 49 ft (5') Distance: 5' Gait Level of Assist: 5 Gait Assistive Device: FWW to recliner with SAO2 decreasing to 88% with quick recovery to 91% Exercises Standing: Marching Standing Reps: 10 (3 sets) Assessment Patient tolerated treatment well and is up in recliner with needs met. Patient is limited due to pulmonary function and on vapotherm. PT will increase activity as tolerated by patient. PT Short Term Goals Short Term Goals Time Frame: Aug 22, 2017 Gait (FIM): 7 Distance (FIM): 3=150 ft Gait Level of Assist: 7 Gait Assistive Device: None PT Plan Treatment/Plan Treatment Plan: Continue Plan of Care, Modify Plan, see comments Treatment Plan: Education, Functional Activity Herb, Functional Strength, Gait , Safety, Therapeutic Exercise Treatment Duration: Aug 22, 2017 Frequency: 6 times per week Estimated Hrs Per Day: .25 hour per day Patient and/or Family Agrees t: Yes Discharge Recommendations Therapy D/C Recommendations: Acute Rehab (when stable with pulmonary function) Time/GCodes Time In: 912 Time Out: 925 Total Billed Treatment Time: 13 Total Billed Treatment 1 visit EX 13 min SOFIE SIMMONS PT Aug 11, 2017 09:56
[2017-08-11] MEDS: POTASSIUM CL 10MEQ/50ML IVPB 50 ML IV SCH ×2 (10:07→10:08)
[2017-08-11 10:25] VITALS: BP 117/64
--- NOTE | 2017-08-11 11:49 | Occ Therapy Progress Note ---
Therapy Progress Note Attempted treatment this date. Pt. reports pain in IV at this time and requests for OT to come back later. OT notified nursing of IV pain. Will come back to work with pt. later. 1120 1, visit declined MORGAN DIAZ OT Aug 11, 2017 11:49
[2017-08-11 12:00] VITALS: BP 97/55
[2017-08-11] MEDS ORDERED: KCL 20 MEQ TAB (K-DUR) PO NR (12:00)
--- NOTE | 2017-08-11 14:03 | Occupational Ther Daily Note ---
OT Current Status-Daily Note Subjective No pain reported. Pt. agrees to spongebathe. Appearance Pt. up in chair. Agrees to spongebathe. Mental Status/Objective Patient Orientation: Person, Place, Time, Situation Functional [place] Measure 0=Not Assessed/NA 4=Minimal Assistance 1=Total Assistance 5=Supervision or Setup 2=Maximal Assistance 6=Modified [place] 3=Moderate Assistance 7=Complete [place] Attachments: IV, Oxygen ADL-Treatment Grooming (FIM): 3 (Pt. attempted to comb her own hair, but unable to get it thoroughly. OT did this for her.) Bathing (FIM): 4 (Min assist in stance for balance to wash lois area. Pt. able to wash feet.) Lower Body Dressing (FIM): 3 (Pt. able to doff slipper socks, but unable to get them on. OT did this for her. Pt. did not want to don street clothing at this time.) Transfers (B, C, W/C) (FIM): 4 (Min assist sit-stand, and CGA in balance to stand while washing.) Education OT Patient Education: Correct positioning, Modified ADL techniques, Progress toward Goal/Update tx plan, Purpose of tx/functional activities, Reviewed precautions, Rehab process, Transfer techniques Teaching Recipient: Patient Teaching Methods: Demonstration, Discussion Response to Teaching: Verbalize Understanding, Return Demonstration OT Short Term Goals Short Term Goals 1=Demonstrate adherence to instructed precautions during ADL tasks. 2=Patient will verbalize/demonstrate understanding of assistive devices/ modifications for ADL. 3=Patient will improve strength/tolerance for activity to enable patient to perform ADL's. OT Clinical Nursing Instructor Goals [facility] Goals Time Frame: Aug 16, 2017 Eating (FIM): 6 Grooming(FIM): 6 Bathing(FIM): 6 Upper Body Dressing(FIM): 6 Lower Body Dressing(FIM): 6 Toileting(FIM): 6 Toilet/Commode Transfer(FIM): 6 Shower Transfer(FIM): 6 Additional Goals: 1-Demonstrate ADL Tasks, 2-Verbalize Understanding, 3- ImproveStrength/Herb 1=Demonstrate adherence to instructed precautions during ADL tasks. 2=Patient will verbalize/demonstrate understanding of assistive devices/ modifications for ADL. 3=Patient will improve strength/tolerance for activity to enable patient to perform ADL's. OT Education/Plan Problem List/Assessment Assessment: Decreased Activ Tolerance, Dependent Transfers, Impaired I ADL's, Impaired Self-Care Skills Pt would benefit from skilled OT to increase her independence in basic self care and to decrease caregiver burden. Discharge Recommendations Plan/Recommendations: Continue POC Therapy D/C Recommendations: Acute Rehab Treatment Plan/Plan of Care Treatment,Training & Education: Yes Patient would benefit from OT for education, treatment and training to promote independence in ADL's, mobility, safety and/or upper extremity function for ADL' s. Plan of Care: ADL Retraining, Functional Mobility, UE Funct Exercise/Act, OTHER (energy conservation education and practice) Treatment Duration: Aug 16, 2017 Frequency: 5 times per week Estimated Hrs Per Day: .25 hour per day (.25 to .5) Agreement: Yes Rehab Potential: Good Time/GCodes Start Time: 13:05 Stop Time: 13:30 Total Time Billed (hr/min): 25 Billed Treatment Time 1, ADL x 2 MORGAN DIAZ OT Aug 11, 2017 14:03
[2017-08-11 16:06] VITALS: BP 108/66
[2017-08-11] MEDS: ACETAMINOPHEN 325 MG TABLET/CAPLET (TYLENOL) PO PRN (16:33)
[2017-08-11 19:58] VITALS: BP 92/54
[2017-08-11] MEDS: ATORVASTATIN 80 MG (LIPITOR) TABLET PO SCH (20:32)
[2017-08-12] VITALS: BP 101/49
[2017-08-12] MEDS: PIPERACILLIN SODIUM/TAZOBACTAM 4.5 GM in NS (IVPB) 100 ML IV SCH ×3 (02:13→16:51)
[2017-08-12 04:00] VITALS: BP 101/21
[2017-08-12] MEDS: LACTOBACILLUS Acidoph/Bulgar (LACTINEX/FLORANEX) TAB PO SCH ×3 (06:34→16:51)
[2017-08-12] MEDS: FUROSEMIDE 40 MG/4 ML INJ (LASIX) IVP SCH ×2 (06:34→16:51)
[2017-08-12] MEDS: CHOLESTYRAMINE 4 GM (QUESTRAN LITE, PREVALITE) PKT PO SCH ×4 (06:34→21:10)
[2017-08-12] MEDS: PANTOPRAZOLE 40 MG (PROTONIX) TAB PO SCH (06:34)
[2017-08-12 06:37] LABS: CARBON DIOXIDE 24 MMOL/L (21-32); CHLORIDE 103 MMOL/L (98-107); POTASSIUM 4.3 MMOL/L (3.6-5.0); SODIUM 137 MMOL/L (135-145)
[2017-08-12 06:38] LABS: BUN/CREATININE RATIO 10; CALCIUM 8.4 MG/DL (8.5-10.1); CREATININE SERUM 0.61 MG/DL (0.60-1.30); GFR ESTIMATED > 60; GLUCOSE 98 MG/DL (70-105); MAGNESIUM 1.8 MG/DL (1.8-2.4)
[2017-08-12 08:00] VITALS: BP 99/57
--- NOTE | 2017-08-12 08:09 | Cardiology Progress Note ---
Subjective Date Seen by Provider: Aug 12, 2017 Time Seen by Provider: 08:08 Subjective/Events-last exam Patient is sitting in a chair, feeling better, still complaining of orthopnea. No chest pain. Review of Systems General: No Chills, No Night Sweats, No Fatigue, No Malaise, No Appetite, No Other HEENT: No Head Aches, No Visual Changes, No Eye Pain, No Ear Pain, No Dysphasia , No Sinus Congestion, No Post Nasal Drip, No Sore Throat, No Other Pulmonary: Dyspnea, No Cough, No Pleuritic Chest Pain, No Other Cardiovascular: Orthopnea, Edema, No: Chest Pain, Palpitations, Paroxysmal Noc. Dyspnea, Lt Headedness, Other Objective-Cardiology Exam Last Set of Vital Signs Vital Signs 08/12/17 08/12/17 08/12/17 04:00 06:58 07:00 Temp 99.8 Pulse 96 Resp 20 B/P (MAP) 101/21 (47) Pulse Ox 90 O2 Delivery Vapotherm O2 Flow Rate 12.00 FiO2 40 Capillary Refill : Less Than 3 Seconds I&O Intake and Output 08/12/17 00:00 Intake Total 2120 ml Output Total 2150 ml Balance -30 ml Intake Oral 1920 ml IV Total 200 ml Output Urine Total 2150 ml # Bowel Movements 6 General: Alert, Oriented X3, Cooperative, Moderate Distress HEENT: Atraumatic, PERRLA Neck: Supple, No JVD, No Thyromegaly Lungs: Normal Air Movement, Other (Bilateral wet rales) Heart: Regular Rate, Normal S1, Normal S2, No Murmurs Abdomen: Normal Bowel Sounds, Soft, No Tenderness, No Hepatosplenomegaly, No Masses Extremities: No Clubbing, No Cyanosis, Normal Pulses, No Tenderness/Swelling, Other (Peripheral edema, normal capillary refill) Skin: No Rashes, No Breakdown, No Significant Lesion Neuro: Normal Gait, Normal Speech, Normal Tone, Sensation Intact Psych/Mental Status: Mental Status NL, Mood NL Results Lab Laboratory Tests 08/12/17 06:15 A/P-Cardiology Admission Diagnosis Acute ST elevation myocardial infarction Coronary artery disease Acute respiratory failure Hypotension Assessment/Plan Coronary artery disease status post acute ST elevation myocardial infarction involving the inferior wall associated with RV infarct, cardiac catheterization was carried out by Dr. Schumacher, successful intervention on the right coronary artery with occlusion of the right ventricular branch. Feeling better at this time. Anemia, stool for occult blood is negative. H&H are better. Continue to monitor Congestive heart failure, acute left ventricular diastolic dysfunction with right sided heart failure, ischemic cardiomyopathy, borderline hypotensive, add parameters for the beta blockers to hold for systolic blood pressure less than 100, cannot start BRETT inhibitor and/or ARB yet due to hypotension Hypotension - likely d/t RV infarct, better at this time. Continue to monitor Shortness of breath, bilateral pleural effusion, pulmonary edema and questionable pneumonia, receiving diuretics and antibiotics, slow improvement, continue on Zosyn and Lasix and monitor response and tolerance Coronary artery disease, status post cardiac catheterization done by Dr. Schumacher on 08/04/17: Mid vessel occlusion of the right coronary artery treated with overlapping stents (Alpine Xience 2.75 x 28 mm the distal part of which extends slightly into the right ventricular branch) and Alpine Xience 2.75 x 12 mm stent that was placed through the expanded struts of the previous stent and overlaps the stent to some degree. There is no significant residual stenosis in the right coronary artery and the flow was normal, but right ventricular branch was lost during the procedure due to infarct-related thrombus. A 90% to 95% stenosis of the proximal left circumflex artery, which was treated with stenting with Alpine Xience 2.25 x 12 mm stent with reduction of stenosis to 0% residual. The left anterior descending artery has diffuse lmhy-[id number] disease Thrombocytopenia, improved, unlikely to be HIT, followed and managed by Dr. Diaz Well preserved global left ventricular systolic function with ejection fraction 60%, postero-basal hypokinesis, no significant mitral regurgitation and mild elevation of left ventricular end-diastolic pressure on [facility] of 08/04/17, continue to monitor closely Paroxysmal atrial fib/flutter, currently in sinus rhythm, had one episode of atrial fibrillation after her myocardial infarction, has been maintaining sinus rhythm, I will keep monitoring her in telemetry and keep her off Eliquis for now TSH 0.26 on lab of - indicative of hyperthyroidism Elevated transaminases likely d/t STEMI, continue to monitor Clinical Quality Measures AMI/AHF: ASA po Prior to arrival: No DVT/VTE Risk/Contraindication: Risk Factor Score Per Nursin RFS Level Per Nursing on Admit: 4+=Very High SERGEI CHUN MD Aug 12, 2017 08:09
--- NOTE | 2017-08-12 08:46 | Consultation ---
History of Present Illness History of Present Illness Patient Consulted On(donavan/time) 08/12/17 08:41 Time Seen by Provider: 08:40 History of Present Illness Patient had acute ST elevated [place]. Patient had stents. CAD. Acute respiratory failure. A. fib. Hypotension. Patient has trouble getting around now. Patient on Vapotherm. Patient has trouble walking around due to shortness of breath Allergies and Home Medications Allergies Coded Allergies: No Known Drug Allergies (Unverified , 08/03/17) Home Medications Aspirin 81 Mg Tablet.dr, 81 MG PO Q48H, (Reported) ALTERNATES COATED ASPIRIN WITH CHEWABLE ASPIRN EVERY OTHER DAY AT SUPPER TIME. Aspirin 81 Mg Tab.chew, 81 MG PO Q48H, (Reported) ALTERNATES COATED ASPIRIN WITH CHEWABLE ASPIRN EVERY OTHER DAY AT SUPPER TIME. Calcium Citrate/Vitamin D3 1 Each Tablet, 1 TAB PO HS, (Reported) Levothyroxine Sodium 50 Mcg Tablet, 50 MCG PO DAILY, (Reported) Losartan Potassium 50 Mg Tablet, 50 MG PO DAILY, (Reported) Pravastatin Sodium 40 Mg Tablet, 40 MG PO HS, (Reported) Venlafaxine HCl 37.5 Mg Tab, 37.5 MG PO DAILY, (Reported) [Allbee W/ C] , 1 TAB PO 1800, (Reported) Patient Home Medication List Home Medication List Reviewed: Yes Past Uwpqxet-Cihkwb-Eoqkdd Hx Patient Social History Alcohol Use: Denies Use Recreational Drug Use: No Smoking Status: Never a Smoker 2nd Hand Smoke Exposure: No Recent Foreign Travel: No Contact w/Someone Who Travel: No Recent Infectious Disease Expo: No Recent Hopitalizations: No Immunizations Up To Date Date of Pneumonia Vaccine: Apr 06, 2016 Date of Influenza Vaccine: Apr 06, 2017 Seasonal Allergies Seasonal Allergies: No Surgeries History of Surgeries: Yes Surgeries: Section Respiratory History of Respiratory Disorde: No Cardiovascular History of Cardiac Disorders: Yes Cardiac Disorders: High Cholesterol, Hypertension Neurological History of Neurological Disord: No Reproductive System : No Genitourinary History of Genitourinary Disor: No Gastrointestinal History of Gastrointestinal Di: No Musculoskeletal History of Musculoskeletal Dis: Yes Musculoskeletal Disorders: Arthritis Endocrine History of Endocrine Disorders: Yes (thyroid problems) Endocrine Disorders: Hypothyroidsim HEENT History of HEENT Disorders: No Cancer History of Cancer: No Psychosocial History of Psychiatric Problem: No Integumentary History of Skin or Integumenta: No Blood Transfusions History of Blood Disorders: No Reviewed Nursing Assessment Reviewed/Agree w Nursing PMH: Yes Family Medical History Significant Family History: No Pertinent Family Hx Review of Systems-General Constitutional: malaise, weakness EENTM: no symptoms reported Respiratory: short of breath Cardiovascular: no symptoms reported Gastrointestinal: no symptoms reported Genitourinary: no symptoms reported Physical Exam-General Problems Physical Exam Vital Signs Vital Signs - First Documented 08/07/17 07:13 FiO2 60 Capillary Refill : Less Than 3 Seconds General Appearance: WD/WN Eyes: Bilateral Eye Normal Inspection HEENT: normal ENT inspection Neck: full range of motion, normal inspection Respiratory: no respiratory distress, no accessory muscle use, decreased breath sounds Cardiovascular: regular rate, rhythm Gastrointestinal: non tender, soft Assessment/Plan Assessment/Plan Admission Diagnosis/Plan Acute ST elevated FL. CAD. Acute respiratory failure. Hypotension. A. fib. Pneumonia. Pulmonary edema. Patient on Vapotherm. Patient feel short of breath when walks Clinical Quality Measures AMI/AHF: ASA po Prior to arrival: No DVT/VTE Risk/Contraindication: Risk Factor Score Per Nursin RFS Level Per Nursing on Admit: 4+=Very High ABRAM BRITT DO Aug 12, 2017 08:46
[2017-08-12] MEDS: meTOprolol TARTRATE 25 MG (LOPRESSOR) TABLET PO SCH ×2 (08:56→20:01)
[2017-08-12] MEDS: ASPIRIN E.C. 81 MG (ECOTRIN) TAB PO SCH (08:56)
[2017-08-12] MEDS: CLOPIDOGREL 75 MG (PLAVIX) TABLET PO SCH (08:56)
[2017-08-12] MEDS: HYDROCORTISONE 2.5% CREAM (ANUSOL-HC) 30 GM TOP SCH ×2 (08:56→20:02)
--- NOTE | 2017-08-12 11:52 | Physical Therapy Daily Note ---
PT Daily Note-Current Subjective Patient reports increase SOA on this date. Vapotherm 40% 12L Pain Numeric Pain Scale: 0-No Pain Location: No Pain Reported Mental Status Patient Orientation: Normal For Age Attachments: Oxygen (vapotherm) Transfers Functional [place] Measure 0=Not Assessed/NA 4=Minimal Assistance 1=Total Assistance 5=Supervision or Setup 2=Maximal Assistance 6=Modified [place] 3=Moderate Assistance 7=Complete IndependenceIRFPAI Quality Coding Scale 6 Independent with activity with or without an assistive device 5 Patient requires set up or clean up by helper. Patient completes activity by themselves 4 Supervision or touching assist (CGA). [place] provide cues , steadying assist 3 The helper provides less than half the effort to complete the activity 2 The helper provides more than half the effort to complete the activity 1 Dependent. The helper does all the effort to complete an activity 7 Patient refused to complete or attempt activity 9 The patient did not perform the activity before the current illness or injury 88 Not attempted due to Medical conditions or safety concerns Transfers (B, C, W/C) (FIM): 6 Scootin Sit to/from Stand: 6 Weight Bearing Right Lower Extremity: Right Full Weight Bearing Left Lower Extremity: Left Full Weight Bearing Exercises Standing: Heel/toe raises, Marching, Mini squats Standing Reps: 15 (2 sets) Assessment Patient requires recovery periods due to SOA and decrease SAO2 to 84% with activity. Patient is very motivated to improve to return to independent LOF. PT Short Term Goals Short Term Goals Time Frame: Aug 22, 2017 Gait (FIM): 7 Distance (FIM): 3=150 ft Gait Level of Assist: 7 Gait Assistive Device: None PT Plan Treatment/Plan Treatment Plan: Continue Plan of Care Treatment Plan: Education, Functional Activity Herb, Functional Strength, Gait , Safety, Therapeutic Exercise Treatment Duration: Aug 22, 2017 Frequency: 6 times per week Estimated Hrs Per Day: .25 hour per day Patient and/or Family Agrees t: Yes Time/GCodes Time In: 1126 Time Out: 1143 Total Billed Treatment Time: 17 Total Billed Treatment 1 visit EX 17 min SOFIE SIMMONS PT Aug 12, 2017 11:52
[2017-08-12 12:00] VITALS: BP 90/54
--- NOTE | 2017-08-12 13:37 | Occupational Ther Daily Note ---
OT Current Status-Daily Note Subjective Pt alert, sitting in recliner. Family present in room. Pt agreed to therapy. No c/o pain. Mental Status/Objective Patient Orientation: Person, Place, Time, Situation Functional [place] Measure 0=Not Assessed/NA 4=Minimal Assistance 1=Total Assistance 5=Supervision or Setup 2=Maximal Assistance 6=Modified [place] 3=Moderate Assistance 7=Complete [place] Other Treatment Pt was able to complete 6 UE exercises against gravity, 10 reps. Pt completed breathing techniques during exercises correctly. Pt demonstrated ability to don /doff socks by self in sitting. Pt stated that she is having difficulty reaching behind to cleanse buttocks. Discussed ways of completing hygiene with toileting. After therapy, pt sitting in recliner with call light/phone in reach. All needs met in room. Nrsg and family in room. OT Short Term Goals Short Term Goals 1=Demonstrate adherence to instructed precautions during ADL tasks. 2=Patient will verbalize/demonstrate understanding of assistive devices/ modifications for ADL. 3=Patient will improve strength/tolerance for activity to enable patient to perform ADL's. OT Data Warehouse Administrator Goals Data Warehouse Administrator Goals Time Frame: Aug 16, 2017 Eating (FIM): 6 Grooming(FIM): 6 Bathing(FIM): 6 Upper Body Dressing(FIM): 6 Lower Body Dressing(FIM): 6 Toileting(FIM): 6 Toilet/Commode Transfer(FIM): 6 Shower Transfer(FIM): 6 Additional Goals: 1-Demonstrate ADL Tasks, 2-Verbalize Understanding, 3- ImproveStrength/Herb 1=Demonstrate adherence to instructed precautions during ADL tasks. 2=Patient will verbalize/demonstrate understanding of assistive devices/ modifications for ADL. 3=Patient will improve strength/tolerance for activity to enable patient to perform ADL's. OT Education/Plan Problem List/Assessment Pt would benefit from skilled OT to increase her independence in basic self care and to decrease caregiver burden. Discharge Recommendations Plan/Recommendations: Continue POC Treatment Plan/Plan of Care Patient would benefit from OT for education, treatment and training to promote independence in ADL's, mobility, safety and/or upper extremity function for ADL' s. Plan of Care: ADL Retraining, Functional Mobility, UE Funct Exercise/Act, OTHER (energy conservation education and practice) Treatment Duration: Aug 16, 2017 Frequency: 5 times per week Estimated Hrs Per Day: .25 hour per day (.25 to .5) Agreement: Yes Rehab Potential: Good Time/GCodes Start Time: 13:15 Stop Time: 13:25 Total Time Billed (hr/min): 10 Billed Treatment Time 1 visit-EX 1 (10 min) PAOLA BUITRAGO Aug 12, 2017 13:37
[2017-08-12 15:39] VITALS: BP 94/48
[2017-08-12 19:37] VITALS: BP 115/60
[2017-08-12] MEDS: ACETAMINOPHEN 325 MG TABLET/CAPLET (TYLENOL) PO PRN (20:01)
[2017-08-12] MEDS: ATORVASTATIN 80 MG (LIPITOR) TABLET PO SCH (20:01)
[2017-08-13] VITALS: BP 91/51
[2017-08-13] MEDS: PIPERACILLIN SODIUM/TAZOBACTAM 4.5 GM in NS (IVPB) 100 ML IV SCH (01:41)
[2017-08-13 03:30] VITALS: BP 99/56
[2017-08-13] MEDS: LACTOBACILLUS Acidoph/Bulgar (LACTINEX/FLORANEX) TAB PO SCH (05:37)
[2017-08-13] MEDS: PANTOPRAZOLE 40 MG (PROTONIX) TAB PO SCH (05:38)
[2017-08-13 05:58] LABS: BASOPHILS % (AUTO) 0 % (0-10); EOSINOPHILS # (AUTO) 0.3 10^3/uL (0.0-0.3); EOSINOPHILS % (AUTO) 5 % (0-10); HEMATOCRIT 30 % (35-52); HEMOGLOBIN 9.8 G/DL (11.5-16.0); LYMPHOCYTES # (AUTO) 0.7 X 10^3 (1.0-4.0); LYMPHOCYTES % (AUTO) 11 % (12-44); MEAN CORPUSCULAR HEMOGLOBIN 32 PG (25-34); MEAN CORPUSCULAR HGB CONC 33 G/DL (32-36); MEAN CORPUSCULAR VOLUME 98 FL (80-99); MEAN PLATELET VOLUME 11.1 FL (7.4-10.4); MONOCYTES # (AUTO) 0.3 X 10^3 (0.0-1.0); MONOCYTES % (AUTO) 4 % (0-12); NEUTROPHILS # (AUTO) 5.1 X 10^3 (1.8-7.8); NEUTROPHILS % (AUTO) 80 % (42-75); PLATELET COUNT 198 10^3/uL (130-400); RED BLOOD COUNT 3.08 10^6/uL (4.35-5.85); RED CELL DISTRIBUTION WIDTH 12.2 % (10.0-14.5); WHITE BLOOD COUNT 6.3 10^3/uL (4.3-11.0)
[2017-08-13 06:09] LABS: ALANINE AMINOTRANSFERASE 30 U/L (0-55); ALBUMIN 3.2 GM/DL (3.2-4.5); ALKALINE PHOSPHATASE 62 U/L (40-136); BILIRUBIN,TOTAL 0.9 MG/DL (0.1-1.0); BUN/CREATININE RATIO 18; CALCIUM 8.8 MG/DL (8.5-10.1); CARBON DIOXIDE 27 MMOL/L (21-32); CHLORIDE 102 MMOL/L (98-107); CREATININE SERUM 0.67 MG/DL (0.60-1.30); GFR ESTIMATED > 60; GLUCOSE 108 MG/DL (70-105); POTASSIUM 3.9 MMOL/L (3.6-5.0); SODIUM 137 MMOL/L (135-145); TOTAL PROTEIN 6.7 GM/DL (6.4-8.2)
[2017-08-13] MEDS: FUROSEMIDE 40 MG/4 ML INJ (LASIX) IVP SCH (06:54)
[2017-08-13] MEDS: CHOLESTYRAMINE 4 GM (QUESTRAN LITE, PREVALITE) PKT PO SCH (06:54)
--- NOTE | 2017-08-13 07:47 | Progress Note (SOAP) ---
Subjective Time Seen by Provider: 07:45 Subjective/Events-last exam Patient clinically feeling better. Acute ST elevated [place]. CAD. ARF. Pneumonia. Hypotension. Paroxysmal atrial fibrillation. Patient still weak and having trouble moving around Objective Exam Vital Signs Date Time Temp Pulse Resp B/P (MAP) Pulse Ox O2 Delivery O2 Flow Rate FiO2 08/13/17 03:30 98.4 86 18 99/56 (70) 93 Vapotherm 50.00 15.00 08/13/17 01:00 72 08/13/17 00:00 99.2 76 16 91/51 (64) 92 Vapotherm 40.00 12.00 08/12/17 21:00 Vapotherm 12.00 40 08/12/17 19:37 99.4 92 20 115/60 (78) 93 Vapotherm 40.00 12.00 08/12/17 19:00 93 08/12/17 18:59 92 Vapotherm 12.00 40 08/12/17 15:39 99.2 82 18 94/48 (63) 100 Vapotherm 40.00 12.00 08/12/17 15:08 92 Vapotherm 12.00 40 08/12/17 13:00 79 08/12/17 12:00 98.5 87 20 90/54 (66) 96 Vapotherm 40.00 12.00 08/12/17 11:15 92 Vapotherm 12.00 40 08/12/17 09:00 Vapotherm 12.00 40 08/12/17 08:00 99.9 103 18 99/57 (71) 97 Vapotherm 40.00 12.00 I & O 08/13/17 07:00 Intake Total 1590 ml Output Total 1200 ml Balance 390 ml Capillary Refill : Less Than 3 Seconds General Appearance: No Apparent Distress, WD/WN HEENT: Normal ENT Inspection Neck: Full Range of Motion, Normal Inspection Respiratory: No Accessory Muscle Use, No Respiratory Distress, Other (Ration on Vapotherm) Cardiovascular: Regular Rate, Rhythm Gastrointestinal: non tender, soft Results Lab Laboratory Tests 08/13/17 05:33 Laboratory Tests 08/13/17 05:33: White Blood Count 6.3, Red Blood Count 3.08L, Hemoglobin 9.8L, Hematocrit 30L, Mean Corpuscular Volume 98, Mean Corpuscular Hemoglobin 32, Mean Corpuscular Hemoglobin Concent 33, Red Cell Distribution Width 12.2, Platelet Count 198, Mean Platelet Volume 11.1H, Neutrophils (%) (Auto) 80H, Lymphocytes (%) (Auto) 11L, Monocytes (%) (Auto) 4, Eosinophils (%) (Auto) 5, Basophils (%) (Auto) 0, Neutrophils # (Auto) 5.1, Lymphocytes # (Auto) 0.7L, Monocytes # (Auto) 0.3, Eosinophils # (Auto) 0.3, Basophils # (Auto) 0.0, Sodium Level 137, Potassium Level 3.9, Chloride Level 102, Carbon Dioxide Level 27, Anion Gap 8, Blood Urea Nitrogen 12, Creatinine 0.67, Estimat Glomerular Filtration Rate > 60, BUN/ Creatinine Ratio 18, Glucose Level 108H, Calcium Level 8.8, Magnesium Level 2.0 , Total Bilirubin 0.9, Aspartate Amino Transf (AST/SGOT) 30, Alanine Aminotransferase (ALT/SGPT) 30, Alkaline Phosphatase 62, Total Protein 6.7, Albumin 3.2 Microbiology 08/06/17 Blood Culture - Final, Complete No growth 08/06/17 Influenza Types A,B Antigen (DAHIANA) - Final, Complete Assessment/Plan Assessment/Plan Assess & Plan/Chief Complaint Acute ST elevated [place]. CAD. Acute respiratory failure. Hypotension. A. fib. Pneumonia. Pulmonary edema. Patient on Vapotherm. Patient feel short of breath when walks. . 08/13/17. Acute ST elevated [place]. CAD. Acute respiratory failure. Hypertension. A. fib. Pneumonia. Pulmonary edema. Patient states she's feeling a little better and looks better clinically Clinical Quality Measures AMI/AHF: ASA po Prior to arrival: No DVT/VTE Risk/Contraindication: Risk Factor Score Per Nursin RFS Level Per Nursing on Admit: 4+=Very High ABRAM BRITT DO Aug 13, 2017 07:47
--- NOTE | 2017-08-13 10:36 | Diagnostic Imaging Report ---
INDICATION: Pneumonia followup There are alveolar infiltrates in both lungs worse on the right than on the left but both have shown improvement since 08/11/2017. IMPRESSION: Improving bilateral pulmonary infiltrates. Dictated by: Dictated on workstation # [id number]
== END 2017-08-13 08:21 | disposition swing bed (61) | DRG 246 ==
LOC: EDUNIT# 23:00 → ER 23:02 → CATH 23:43 → ICU 08-04 02:13 → 4TH 08-11 12:14
PROVIDERS: ADMIT Internal Medicine Cardiovascular Disease; ATTEND Internal Medicine Cardiovascular Disease
PROC: 027136Z Dilation of Coronary Artery, Two Arteries with Three Drug-eluting Intraluminal Devices, Percutaneous Approach (ICD-10-PCS; principal; 2017-08-03)
PROC: 4A023N7 Measurement of Cardiac Sampling and Pressure, Left Heart, Percutaneous Approach (ICD-10-PCS; 2017-08-03)
PROC: B2111ZZ Fluoroscopy of Multiple Coronary Arteries using Low Osmolar Contrast (ICD-10-PCS; 2017-08-03)
PROC: B2151ZZ Fluoroscopy of Left Heart using Low Osmolar Contrast (ICD-10-PCS; 2017-08-03)
DX: I21.19 ST elevation (STEMI) myocardial infarction involving other coronary artery of inferior wall (principal); I25.110 Atherosclerotic heart disease of native coronary artery with unstable angina pectoris; J18.9 Pneumonia, unspecified organism; J96.01 Acute respiratory failure with hypoxia; I11.0 Hypertensive heart disease with heart failure; I50.31 Acute diastolic (congestive) heart failure; I49.01 Ventricular fibrillation; I46.2 Cardiac arrest due to underlying cardiac condition; I48.92 Unspecified atrial flutter; R04.2 Hemoptysis; N17.9 Acute kidney failure, unspecified; I95.9 Hypotension, unspecified; I48.0 Paroxysmal atrial fibrillation; I49.3 Ventricular premature depolarization; I49.1 Atrial premature depolarization; E78.00 Pure hypercholesterolemia, unspecified; E03.9 Hypothyroidism, unspecified; M19.91 Primary osteoarthritis, unspecified site; D63.8 Anemia in other chronic diseases classified elsewhere; D69.6 Thrombocytopenia, unspecified; E05.90 Thyrotoxicosis, unspecified without thyrotoxic crisis or storm; Z82.49 Family history of ischemic heart disease and other diseases of the circulatory system; E87.6 Hypokalemia; E83.39 Other disorders of phosphorus metabolism
CPT/HCPCS: 36415; 71045; 71046; 71275; 80048; 80053; 80061; 80076; 81000; 82274; 82805; 83605; 83615; 83735; 83874; 83880; 84100; 84132; 84443; 84484; 85007; 85025; 85027; 85045; 85379; 85384; 85610; 85730; 86022; 87040; 87070; 87205; 87804; 93005; 93041; 93306; 93458; 93970; 94760; 96365

== ENCOUNTER 2017-08-13 08:24 | Inpatient (IN) | payer MEDICARE, OTHER ==
[~2017-08-13] VITALS: Ht 152.4 cm; Wt 60.5 kg
[~2017-08-13 08:24] MED LIST: ASPI-983 PO; ASPI-999 PO; CALC-696 PO; LEVO50TA6 PO; LOSA50TA36 PO; PRAV40TA2 PO; VNL37.5T PO; [UNRECOGNIZED DRUG - OTHER] PO
[2017-08-13] MEDS ORDERED: LOPERAMIDE 2 MG (IMODIUM) CAP PO PRN (08:30)
[2017-08-13] MEDS ORDERED: PATIENT MAY USE OWN MEDS, ALL PO SCH (08:30)
[2017-08-13] MEDS ORDERED: ONDANSETRON 4 MG/2 ML (SDV) Z0FRAN IVP PRN (08:30)
[2017-08-13] MEDS ORDERED: morphine INJ 4 MG/ML 1 ML (VIAL/SYRINGE) IVP PRN (08:30)
[2017-08-13] MEDS ORDERED: FAMOTIDINE 20 MG (PEPCID) TABLET PO PRN (08:30)
[2017-08-13] MEDS ORDERED: PIPERACILLIN SODIUM/TAZOBACTAM 4.5 GM in NS (IVPB) 100 ML IV SCH (08:30)
[2017-08-13] MEDS ORDERED: ACETAMINOPHEN 325 MG TABLET/CAPLET (TYLENOL) PO PRN (08:30)
[2017-08-13 08:40] VITALS: BP 116/62
[2017-08-13] MEDS: meTOprolol TARTRATE 25 MG (LOPRESSOR) TABLET PO SCH ×2 (09:37→21:31)
[2017-08-13] MEDS: CLOPIDOGREL 75 MG (PLAVIX) TABLET PO SCH (09:37)
[2017-08-13] MEDS: ASPIRIN E.C. 81 MG (ECOTRIN) TAB PO SCH (09:37)
[2017-08-13] MEDS: HYDROCORTISONE 2.5% CREAM (ANUSOL-HC) 30 GM TOP SCH ×2 (09:39→21:32)
[2017-08-13] MEDS: LACTOBACILLUS Acidoph/Bulgar (LACTINEX/FLORANEX) TAB PO SCH ×2 (10:46→16:23)
[2017-08-13] MEDS: CHOLESTYRAMINE 4 GM (QUESTRAN LITE, PREVALITE) PKT PO SCH ×3 (10:46→21:31)
[2017-08-13] MEDS: PIPERACILLIN SODIUM/TAZOBACTAM 4.5 GM in NS (IVPB) 100 ML IV SCH ×2 (10:46→17:24)
[2017-08-13 11:08] VITALS: BP 90/50
--- NOTE | 2017-08-13 13:58 | Physical Therapy Evaluation ---
PT Evaluation-General Medical Diagnosis Admission Date Aug 13, 2017 at 08:24 Medical Diagnosis: WI Onset Date: Aug 03, 2017 Therapy Diagnosis Therapy Diagnosis: weakness Height/Weight Height (Feet): 5 Height (Inches): 0.00 Weight (Pounds): 133 Weight (Ounces): 6.0 Precautions Precautions/Isolations: Standard Precautions Weight Bear Status Right Lower Extremity: Right Full Weight Bearing Left Lower Extremity: Left Full Weight Bearing Referral Physician: Benny Boyd Reason for Referral: Evaluation/Treatment Medical History Pertinent Medical History: CAD, HTN, Hypothroidism Current History Patient admitted with WI. Currently having extreme shortness of breath with decreased O2 sats with all activity. Social History Home: Single Level Current Living Status: Significant Other Prior/Core FIM Prior Level of Function Functional [place] Measure 0=Not Assessed/NA 4=Minimal Assistance 1=Total Assistance 5=Supervision or Setup 2=Maximal Assistance 6=Modified [place] 3=Moderate Assistance 7=Complete [place] Bed Mobility: 7 Transfers (B,C,W/C) (FIM): 7 PT Evaluation-Current Subjective Patient reports she is gaining strength. She currently reports feeling impaired by the necessity to stay on a vapotherm unit to keep her oxygen levels up. Objective Patient Orientation: Normal For Age Problem Solving: Poor Attachments: Oxygen ROM/Strength ROM Upper Extremities WFL ROM Lower Extremities WFL Strenght Lower Extremities gross 4/5 throughout Sensory Vision: Wears Glasses Hearing: Functional Sensation Right Upper Extremit: Intact Sensation Left Upper Extremity: Intact Sensation Right Lower Extremit: Intact Sensation Left Lower Extremity: Intact Transfers Functional [place] Measure 0=Not Assessed/NA 4=Minimal Assistance 1=Total Assistance 5=Supervision or Setup 2=Maximal Assistance 6=Modified [place] 3=Moderate Assistance 7=Complete [place] Transfers (B, C, W/C) (FIM): 5 Scootin Rollin Supine to/from Sit: 6 Sit to/from Stand: 5 Sit to Lying (QC): 4 Lying to Sitting/Side of Bed(Q: 4 Sit to Stand (QC): 4 Chair/[id number]-[id number] Xfer(QC): 4 steadying assist during transfers Gait Does the Patient Walk?: Yes Mode of Locomotion: Walk Anticipated Mode of Locomotion: Walk Gait (FIM): 1 Distance (FIM): 1=up to 49 ft Distance: 10 Walk 50 ft with 2 Turns(QC): 1 Walk 150 ft (QC): 1 Gait Level of Assist: 4 Gait Persons Needed: 1 Gait Assistive Device: FWW Comments/Gait Description Patient has a widened base of support. Her legs are stable. Gait assessment was restricted by confinement to room and vapotherm device. Balance Sitting Static: Normal Sitting Dynamic: Normal Standing Static: Fair Standing Dynamic: Fair Assessment/Needs Rehab Potential: Good Post Rehab Potential-Barriers: shortness of breath PT Cribbing Setter Goals Cribbing Setter Goals PT Cribbing Setter Goals Time Frame: Aug 20, 2017 Transfers (B,C,W/C) (FIM): 6 Sit to Lying (QC): 6 Lying-Sitting on Side/Bed(QC): 6 Sit to Stand (QC): 6 Rollin Chair/Ypj-tm-Ejaxo Xfer(QC): 6 Walk 50ft with 2 Turns (QC): 6 Walk 150 ft (QC): 6 Gait Level of Assist: 6 Gait Assistive Device: Cane Single Point PT Plan Problem List Problem List: Activity Tolerance, Balance, Gait, Transfer Treatment/Plan Treatment Plan: Continue Plan of Care Treatment Plan: Functional Activity Herb, Gait, Safety, Therapeutic Exercise Treatment Duration: Aug 20, 2017 Frequency: 6 times per week Estimated Hrs Per Day: .25 hour per day Patient and/or Family Agrees t: Yes Time/GCodes Time In: 0950 Time Out: 1020 Total Billed Treatment Time: 30 Total Billed Treatment visit, eval low complexity 15 minutes, gait 15 minutes ELLI LESTER PT Aug 13, 2017 13:58
--- NOTE | 2017-08-13 14:43 | Consultation-Cardiology ---
HPI-Cardiology Cardiology Consultation: Date of Consultation 08/13/17 Date of Admission Attending Physician Benny Boyd DO Admitting Physician Benny Boyd DO Consulting Physician Ole TERRELL MD HPI: Time Seen by Provider: 12:45 Chief Complaint: Recent STEMI This is a 71-year-old lady who had inferior STEMI on 08/04/2017. Initial coronary angiography and PCI to RCA and left circumflex artery was done by Dr. Schumacher. Excellent results however with thrombotic occlusion of an RV branch resulted in RV dysfunction with hypotension. She has been gradually improved with still shortness of breath. She is now in an inpatient rehabilitation and continues to have mild shortness of breath and slow improvement. Review of Systems-Cardiology Review of Systems Constitutional: No As described under HPI, No no symptoms reported, No chills, No fever, No lightheadedness, No malaise, No tiredness, No weight loss, No weight gain, No other Eyes: No As described under HPI, No no symptoms reported, No blindness, No blurred vision, No contact lenses, No drainage, No decreased acuity, No foreign body sensation, No glasses, No inflammation, No pain, No photophobia, No previous injury, No shadows, No tunnel vision, No other, No vision change Ears/Nose/Throat: No As described under HPI, No no symptoms reported, No chronic hearing loss, No epistaxis, No ear discharge, No ear pain, No loose teeth, No mouth pain, No mouth swelling, No nasal drainage, No nose pain, No recent hearing loss, No throat pain, No throat swelling, No ulcerations, No other Respiratory: shortness of breath Cardiovascular: No no symptoms reported, No As described under HPI, No chest pain, No edema, No irregular heart rate, No lightheadedness, No palpitations, No syncope, No other Gastrointestinal: No no symptoms reported, No As described under HPI, No abdomen distended, No abdominal pain, No blood streaked bowels, No constipation , No diarrhea, No difficulty swallowing, No nausea, No poor appetite, No poor fluid intake, No rectal bleeding, No vomiting, No other, No nausea/vomiting/ diarrhea, No stool coloration changes Genitourinary: No no symptoms reported, No As described under HPI, No burning, No dysuria, No discharge, No frequency, No flank pain, No hematuria, No incontinence, No pain, No urgency, No other, No urine frequency changes, No urine coloration changes Musculoskeletal: No no symptoms reported, No As describe under HPI, No back pain, No gout, No joint pain, No joint swelling, No muscle pain, No muscle stiffness, No neck pain, No other Skin: No no symptoms reported, No As described under HPI, No change in color, No change in hair/nails, No dryness, No lesions, No lumps, No rash, No other, No skin related problems, No ulcerations, No rash on exposed areas, No ulcerations on exposed areas Psychiatric/Neurological: No no symptoms reported, No As described under HPI, No anxiety, No depression, No emotional problems, No headache, No numbness, No pre-existing deficit, No seizure, No tingling, No tremors, No weakness, No other , No focal weakness, No syncope Hematologic: No no symptoms reported, No As described under HPI, No anemia, No blood clots, No easy bleeding, No easy bruising, No swollen glands, No other, No bleeding abnormalities NTM-[id number]-[id number] Hx Patient Social History 2nd Hand Smoke Exposure: No Immunizations Up To Date Date of Pneumonia Vaccine: Apr 06, 2016 Date of Influenza Vaccine: Apr 06, 2017 Past Medical History PMH As described under Assessment. Family Medical History Family Medical History: No fam h/o early CAD or SCD. Father and brother had NE in their later age Allergies and Home Medications Allergies Coded Allergies: No Known Drug Allergies (Unverified , 08/03/17) Home Medications Aspirin 81 Mg Tablet.dr, 81 MG PO Q48H, (Reported) ALTERNATES COATED ASPIRIN WITH CHEWABLE ASPIRN EVERY OTHER DAY AT SUPPER TIME. Aspirin 81 Mg Tab.chew, 81 MG PO Q48H, (Reported) ALTERNATES COATED ASPIRIN WITH CHEWABLE ASPIRN EVERY OTHER DAY AT SUPPER TIME. Calcium Citrate/Vitamin D3 1 Each Tablet, 1 TAB PO HS, (Reported) Levothyroxine Sodium 50 Mcg Tablet, 50 MCG PO DAILY, (Reported) Losartan Potassium 50 Mg Tablet, 50 MG PO DAILY, (Reported) Pravastatin Sodium 40 Mg Tablet, 40 MG PO HS, (Reported) Venlafaxine HCl 37.5 Mg Tab, 37.5 MG PO DAILY, (Reported) [Allbee W/ C] , 1 TAB PO 1800, (Reported) Patient Home Medication List Home Medication List Reviewed: Yes Physical Exam-Cardiology Physical Exam Vital Signs/I&O Vital Sign - Last 12Hours 08/13/17 08/13/17 08/13/17 08/13/17 07:00 08:40 09:00 11:08 Temp 97.8 100.7 Pulse 96 96 84 Resp 19 17 B/P (MAP) 116/62 (80) 90/50 (63) Pulse Ox 93 97 O2 Delivery Vapotherm Vapotherm Vapotherm O2 Flow Rate 50.00 15.00 50.00 15.00 15.00 FiO2 50 08/13/17 13:00 Pulse 86 Capillary Refill : Constitutional: No appears stated age, AAO x 3, No apparent distress, No PERRL , No well-developed, No well-nourished, No other HEENT: No PERRL, No normal ENT inspection, No TMs normal, No pharynx normal, No scleral icterus (R), No scleral icterus (L), No pale conjunctivae (R), No pale conjunctivae (L), No photophobia, No TM abnormal (R), No TM abnormal (L), No pharyngeal erythema, No tonsillar exudate, No other, No discharge, No EOMI, No hearing is well preserved, No hard of hearing, No oral hygience is good, No ulceration, No xanthelasmas are seen Neck: No non-tender, No full range of motion, No supple, No normal inspection, No carotid bruit, No limited range of motion, No lymphadenopathy (R), No lymphadenopathy (L), No tender lateral, No tender midline, No thyromegaly, No other, carotid pulses are 2 + bilaterally, No with good upstrokes Respiratory: No accessory muscle use, No respiratory distress, No chest tender , No chest expansion is symmetric, chest is bilaterally symmetric, No lungs clear to percussion, lungs clear to auscultation, No crackles, No rhonchi, No rales, No stridor, No wheezing, No pleural rub, No other Cardiovascular: regular rate-rhythm, No irregularly irregular, No extra beats, No parasternal heave is noted, No JVD, No edema, No bradycardia, No tachycardia , No point of maximal impulse, No cardiac thrills are palpable, S1 and S2, No gallop/S3, No gallop/S4, No diastolic murmur, No systolic murmur, No friction rub, No click, No other Gastrointestinal: No tender, No soft, No round, No distended, No pulsatile mass , No organomegaly, No guarding, No rebound, No tenderness, No hernia, No mass, No audible bowel sounds, No abnormal bowel sounds, No abdominal bruits, No spleenomegaly, No other Rectal: deferred Extremities: No normal range of motion, No non-tender, No normal inspection, No pedal edema, No calf tenderness, No normal capillary refill, No pelvis stable , No calf tenderness, No inflammation, No pedal edema, No slow capillary refill , No swelling, No other, No abrasion, No clubbing, No cyanosis, No ecchymosis, No laceration, No no lower extremity edema bilateral, No significant edema, No tenderness, No wound Neurologic/Psychiatric: No pediatric nurse II-XII nml as tested, No no motor/sensory deficits, alert, normal mood/affect, oriented x 3, No abnormal cerebellar tests , No abnormal pediatric nurse II-XII, No abnormal gait, No aphasia, No EOM palsy, No facial droop, No motor weakness, No sensory deficit, No depressed affect, No disoriented x 3, No other, No grossly intact, No power is 5/5 both on sides Skin: No normal color, No warm/dry, No cyanosis, No cool, No diaphoresis, No damp, No ecchymosis, No jaundice, No mottled, No pallor, No rash, No tattoos/ piercings, No ulcerations, No rash on exposed areas, No ulcerations on exposed areas, No other A/P-Cardiology Assessment/Admission Diagnosis Acute ST elevation myocardial infarction, resolved. Coronary artery disease Acute respiratory failure Hypotension Plan Coronary artery disease status post acute ST elevation myocardial infarction involving the inferior wall associated with RV infarct, cardiac catheterization was carried out by Dr. Schumacher, successful intervention on the right coronary artery with occlusion of the right ventricular branch. Feeling better at this time. Anemia, stool for occult blood is negative. H&H are better. Continue to monitor Congestive heart failure, acute left ventricular diastolic dysfunction with right sided heart failure, ischemic cardiomyopathy, borderline hypotensive, add parameters for the beta blockers to hold for systolic blood pressure less than 100, cannot start BRETT inhibitor and/or ARB yet due to hypotension Hypotension - likely d/t RV infarct, better at this time. Continue to monitor Shortness of breath, bilateral pleural effusion, pulmonary edema and questionable pneumonia, receiving diuretics and antibiotics, slow improvement, continue on Zosyn and Lasix and monitor response and tolerance Coronary artery disease, status post cardiac catheterization done by Dr. Schumacher on 08/04/17: Mid vessel occlusion of the right coronary artery treated with overlapping stents (Alpine Xience 2.75 x 28 mm the distal part of which extends slightly into the right ventricular branch) and Alpine Xience 2.75 x 12 mm stent that was placed through the expanded struts of the previous stent and overlaps the stent to some degree. There is no significant residual stenosis in the right coronary artery and the flow was normal, but right ventricular branch was lost during the procedure due to infarct-related thrombus. A 90% to 95% stenosis of the proximal left circumflex artery, which was treated with stenting with Alpine Xience 2.25 x 12 mm stent with reduction of stenosis to 0% residual. The left anterior descending artery has diffuse [id number] disease Thrombocytopenia, improved, unlikely to be HIT, followed and managed by Dr. Diaz Well preserved global left ventricular systolic function with ejection fraction 60%, postero-basal hypokinesis, no significant mitral regurgitation and mild elevation of left ventricular end-diastolic pressure on [facility] of 08/04/17, continue to monitor closely Paroxysmal atrial fib/flutter, currently in sinus rhythm, had one episode of atrial fibrillation after her myocardial infarction, has been maintaining sinus rhythm, I will keep monitoring her in telemetry and keep her off Eliquis for now TSH 0.26 on lab of - indicative of hyperthyroidism Elevated transaminases likely d/t STEMI, continue to monitor Thank you for your consultation. Please call me if you have any questions. Anders Terrell MD, FACP, FACC, FSCAI, FHRS, CCDS Interventional Cardiology Cardiac Electrophysiology Vascular Medicine and Endovascular Interventions Clinical Quality Measures DVT/VTE Risk/Contraindication: Risk Factor Score Per Nursin Ole TERRELL MD Aug 13, 2017 14:43
--- NOTE | 2017-08-13 15:15 | Occupational Therapy Eval ---
OT Evaluation-General/PLF Medical Diagnosis Admission Date Aug 13, 2017 at 08:24 Medical Diagnosis: ND Onset Date: Aug 03, 2017 Therapy Diagnosis Therapy Diagnosis: Weakness Height/Weight Height (Feet): 5 Height (Inches): 0.00 Weight (Pounds): 133 Weight (Ounces): 6.0 Precautions Precautions/Isolations: Standard Precautions Safety Interventions: Reorient-PRN Weight Bear Status Weight Bearing Restriction: Weight Bearing/Tolerated Referral Physician: Benny Boyd Referral Reason: Activity Tolerance, Self Care, Evaluation/Treatment, Strengthening/ROM Medical History Pertinent Medical History: CAD, HTN, Hypothroidism Current History Pt. on SWB following ND. Pt. on vapotherm and is unable to ambulate, shower without vapotherm. Reviewed History: Yes Social History Home: Single Level Current Living Status: Significant Other ADL-Prior Level of Function ADL PLOF Comments Pt. was independent with daily tasks previous to hospitalization. Drive Self: Yes OT Current Status Subjective No pain reported. Pt. does report being fatigued. Appearance Pt. up in chair. Is agreeable to spongebathe while up in chair. Declines street clothing due to oxygen and telemetry, and IVs. Mental Status/Objective Patient Orientation: Person, Place, Time, Situation Attachments: IV, Oxygen, Telemetry Current Glasses/Contacts: Yes Hand Dominance: Right Upper Extremity ROM WFL ADL-Treatment Functional [place] Measure 0=Not Assessed/NA 4=Minimal Assistance 1=Total Assistance 5=Supervision or Setup 2=Maximal Assistance 6=Modified [place] 3=Moderate Assistance 7=Complete IndependenceIRFPAI Quality Coding Scale 6 Independent with activity with or without an assistive device 5 Patient requires set up or clean up by helper. Patient completes activity by themselves 4 Supervision or touching assist (CGA). [place] provide cues , steadying assist 3 The helper provides less than half the effort to complete the activity 2 The helper provides more than half the effort to complete the activity 1 Dependent. The helper does all the effort to complete an activity 7 Patient refused to complete or attempt activity 9 The patient did not perform the activity before the current illness or injury 88 Not attempted due to Medical conditions or safety concerns Eating (FIM): 6 (Pt. able to feed self with no difficulty.) Eating (QC): 6 Grooming (FIM): 5 (Set up with brushing hair.) Bathing (FIM): 4 (Pt. able to bathe all parts but requests assist to bathe rear lois area.) Lower Body Dressing (FIM): 5 (Pt. able to doff and don her own socks.) Transfers (B, C, W/C) (FIM): 5 (SBA to bias binding folder chair.) Education OT Patient Education: Correct positioning, Modified ADL techniques, Progress toward Goal/Update tx plan, Purpose of tx/functional activities, Reviewed precautions, Rehab process, Transfer techniques Teaching Recipient: Patient Teaching Methods: Demonstration, Discussion Response to Teaching: Verbalize Understanding, Return Demonstration OT Short Term Goals Short Term Goals Time Frame: Aug 20, 2017 Eating(FIM): 5 Grooming(FIM): 5 Bathing(FIM): 5 Upper Body Dressing(FIM): 5 Lower Body Dressing(FIM): 5 Toileting(FIM): 5 Transfers (B,C,W/C) (FIM): 5 Toilet/Commode Transfer(FIM): 5 Shower Transfer(FIM): 5 Additional Short Term Goals: 1-Demonstrate ADL Tasks, 2-Verbalize Understanding , 3-ImproveStrength/Herb 1=Demonstrate adherence to instructed precautions during ADL tasks. 2=Patient will verbalize/demonstrate understanding of assistive devices/ modifications for ADL. 3=Patient will improve strength/tolerance for activity to enable patient to perform ADL's. OT Shelter Goals Peer Specialist Goals Time Frame: Aug 27, 2017 Eating (FIM): 6 Eating (QC): 6 Groomin Oral Hygiene (QC): 6 Bathing(FIM): 6 Upper Body Dressing(FIM): 6 Lower Body Dressing(FIM): 6 Toileting(FIM): 6 Toileting Hygiene (QC): 6 Transfers (B,C,W/C) (FIM): 6 Toilet/Commode Transfer(FIM): 6 Toilet/Commode Transfer (QC): 6 Shower Transfer(FIM): 5 Additional Goals: 1-Demonstrate ADL Tasks, 2-Verbalize Understanding, 3- ImproveStrength/Herb 1=Demonstrate adherence to instructed precautions during ADL tasks. 2=Patient will verbalize/demonstrate understanding of assistive devices/ modifications for ADL. 3=Patient will improve strength/tolerance for activity to enable patient to perform ADL's. OT Education/Plan Problem List/Assessment Assessment: Decreased Activ Tolerance, Dependent Transfers, Impaired I ADL's, Impaired Self-Care Skills Discharge Recommendations Plan/Recommendations: Continue POC Therapy D/C Recommendations: Home w/ Family Support, Occupational Therapy Home Care Barriers to Progress Fatigue and vapotherm. Treatment Plan/Plan of Care Treatment,Training & Education: Yes Patient would benefit from OT for education, treatment and training to promote independence in ADL's, mobility, safety and/or upper extremity function for ADL' s. Plan of Care: ADL Retraining, Functional Mobility, UE Funct Exercise/Act Treatment Duration: Aug 27, 2017 Frequency: 5 times per week Estimated Hrs Per Day: .25 hour per day Agreement: Yes Rehab Potential: Good Time/GCodes Start Time: 11:10 Stop Time: 11:35 Total Time Billed (hr/min): 25 Billed Treatment Time 1, EVL x 10minutes, ADL x 15minutes MORGAN DIAZ OT Aug 13, 2017 15:15
[2017-08-13 16:08] VITALS: BP 97/55
[2017-08-13] MEDS: FUROSEMIDE 40 MG/4 ML INJ (LASIX) IVP SCH (16:23)
[2017-08-13 17:00] LABS: BILIRUBIN,URINE NEGATIVE (NEGATIVE); CLARITY,URINE CLEAR; COLOR,URINE YELLOW; GLUCOSE, URINE (UA) NEGATIVE (NEGATIVE); KETONES,URINE NEGATIVE (NEGATIVE); LEUKOCYTE ESTERASE ,URINE 1+ (NEGATIVE); NITRITE,URINE NEGATIVE (NEGATIVE); PH,URINE 6.5 (5-9); PROTEIN,URINE NEGATIVE (NEGATIVE); UROBILINOGEN,URINE NORMAL (NORMAL)
[2017-08-13 17:14] LABS: BACTERIA,URINE NEGATIVE /HPF; WBC,URINE RARE /HPF
[2017-08-13 19:21] VITALS: BP 126/78
[2017-08-13 20:00] VITALS: BP 90/52
[2017-08-13] MEDS: ATORVASTATIN 80 MG (LIPITOR) TABLET PO SCH (21:31)
[2017-08-13 23:37] VITALS: BP 100/54
[2017-08-14] MEDS: PIPERACILLIN SODIUM/TAZOBACTAM 4.5 GM in NS (IVPB) 100 ML IV SCH ×3 (01:51→18:21)
[2017-08-14 04:00] VITALS: BP 107/58
[2017-08-14] MEDS: CHOLESTYRAMINE 4 GM (QUESTRAN LITE, PREVALITE) PKT PO SCH ×4 (05:57→20:18)
[2017-08-14] MEDS: PANTOPRAZOLE 40 MG (PROTONIX) TAB PO SCH (05:57)
[2017-08-14] MEDS: LACTOBACILLUS Acidoph/Bulgar (LACTINEX/FLORANEX) TAB PO SCH ×3 (05:57→16:35)
[2017-08-14] MEDS: FUROSEMIDE 40 MG/4 ML INJ (LASIX) IVP SCH ×2 (05:57→16:36)
[2017-08-14 06:44] LABS: HEMOGLOBIN 9.8 G/DL (11.5-16.0); MEAN PLATELET VOLUME 11.4 FL (7.4-10.4); RED BLOOD COUNT 3.08 10^6/uL (4.35-5.85); RED CELL DISTRIBUTION WIDTH 12.1 % (10.0-14.5); WHITE BLOOD COUNT 7.9 10^3/uL (4.3-11.0)
[2017-08-14 07:10] LABS: BUN/CREATININE RATIO 15; CALCIUM 8.8 MG/DL (8.5-10.1); CARBON DIOXIDE 27 MMOL/L (21-32); CHLORIDE 101 MMOL/L (98-107); CREATININE SERUM 0.65 MG/DL (0.60-1.30); GFR ESTIMATED > 60; GLUCOSE 104 MG/DL (70-105); POTASSIUM 4.3 MMOL/L (3.6-5.0); SODIUM 136 MMOL/L (135-145)
--- NOTE | 2017-08-14 07:24 | Progress Note (SOAP) ---
Subjective Time Seen by Provider: 07:20 Subjective/Events-last exam Patient feels she is slowly improving. Chest x-ray yesterday showed some improvement. Temperature 99 last night. Patient walking slightly more. Patient hypotensive. Acute ST elevated IN resolved. CAD. Acute respiratory failure Objective Exam Vital Signs Date Time Temp Pulse Resp B/P (MAP) Pulse Ox O2 Delivery O2 Flow Rate FiO2 08/14/17 06:47 93 Vapotherm 12.00 40 08/14/17 04:00 99.5 84 20 107/58 (74) 91 Vapotherm 40.00 12.00 08/14/17 02:31 90 Vapotherm 12.00 35 08/14/17 01:00 73 08/13/17 23:37 99.2 84 16 100/54 (69) 91 Vapotherm 35.00 12.00 08/13/17 22:36 88 Vapotherm 12.00 30 08/13/17 21:00 Vapotherm 12.00 30 08/13/17 20:00 90/52 (65) 08/13/17 19:21 98.5 87 18 96 Vapotherm 30.00 12.00 08/13/17 19:00 91 08/13/17 18:54 96 Vapotherm 12.00 40 08/13/17 18:03 Vapotherm 12.00 40 08/13/17 17:02 99.6 08/13/17 17:00 99.6 08/13/17 16:23 101.1 08/13/17 16:08 101.1 93 18 97/55 (69) 97 Vapotherm 50.00 15.00 08/13/17 14:46 97 Vapotherm 15.00 50 08/13/17 13:00 86 08/13/17 11:08 100.7 84 17 90/50 (63) 97 Vapotherm 50.00 15.00 08/13/17 09:00 Vapotherm 15.00 50 08/13/17 08:40 97.8 96 19 116/62 (80) 93 Vapotherm 50.00 15.00 I & O 08/14/17 07:00 Intake Total 2120 ml Output Total 1350 ml Balance 770 ml Capillary Refill : General Appearance: No Apparent Distress, WD/WN, Other (On Vapotherm) HEENT: Normal ENT Inspection Neck: Full Range of Motion, Normal Inspection Respiratory: No Accessory Muscle Use, No Respiratory Distress, Decreased Breath Sounds Cardiovascular: Regular Rate, Rhythm, No Murmur Results Lab Laboratory Tests 08/14/17 05:56 Laboratory Tests 08/13/17 16:49: Urine Color YELLOW, Urine Clarity CLEAR, Urine pH 6.5, Urine Specific Cinebar 1.010L, Urine Protein NEGATIVE, Urine Glucose (UA) NEGATIVE, Urine Ketones NEGATIVE, Urine Nitrite NEGATIVE, Urine Bilirubin NEGATIVE, Urine Urobilinogen NORMAL, Urine Leukocyte Esterase 1+H, Urine RBC (Auto) NEGATIVE, Urine RBC NONE , Urine WBC RARE, Urine Crystals NONE, Urine Bacteria NEGATIVE, Urine Casts NONE , Urine Mucus NEGATIVE, Urine Culture Indicated NO 08/14/17 05:56: White Blood Count 7.9, Red Blood Count 3.08L, Hemoglobin 9.8L, Hematocrit 30L, Mean Corpuscular Volume 96, Mean Corpuscular Hemoglobin 32, Mean Corpuscular Hemoglobin Concent 33, Red Cell Distribution Width 12.1, Platelet Count 226, Mean Platelet Volume 11.4H, Sodium Level 136, Potassium Level 4.3, Chloride Level 101, Carbon Dioxide Level 27, Anion Gap 8, Blood Urea Nitrogen 10, Creatinine 0.65, Estimat Glomerular Filtration Rate > 60, BUN/Creatinine Ratio 15, Glucose Level 104, Calcium Level 8.8 Assessment/Plan Assessment/Plan Assess & Plan/Chief Complaint Acute ST elevated IN resolved. Coronary artery disease. Hypotension now. Acute respiratory failure. Patient still on Vapotherm. Patient still a work in progress Clinical Quality Measures DVT/VTE Risk/Contraindication: Risk Factor Score Per Nursin ABRAM BRITT DO Aug 14, 2017 07:24
[2017-08-14 08:00] VITALS: BP 108/59
[2017-08-14] MEDS: meTOprolol TARTRATE 25 MG (LOPRESSOR) TABLET PO SCH ×2 (08:28→20:20)
[2017-08-14] MEDS: CLOPIDOGREL 75 MG (PLAVIX) TABLET PO SCH (08:28)
[2017-08-14] MEDS: HYDROCORTISONE 2.5% CREAM (ANUSOL-HC) 30 GM TOP SCH ×2 (08:29→20:22)
[2017-08-14] MEDS: ASPIRIN E.C. 81 MG (ECOTRIN) TAB PO SCH (08:29)
--- NOTE | 2017-08-14 08:46 | Diagnostic Imaging Report ---
INDICATION: Pulmonary infiltrates. TIME OF EXAMINATION: 08:11 a.m. COMPARISON: Correlation is made with prior study one day earlier. FINDINGS: The heart size is stable. Right hemidiaphragm is elevated. There are diffuse infiltrates throughout the right lung. There is also left upper lobe and left perihilar pulmonary infiltrate, similar to yesterday's exam. The left lung base is clear. No effusion is identified. No pneumothorax is seen. IMPRESSION: Diffuse bilateral pulmonary infiltrates, similar in appearance to the examination one day earlier. Dictated by: Dictated on workstation # [id number]
--- NOTE | 2017-08-14 10:18 | Physical Therapy Daily Note ---
PT Daily Note-Current Subjective Agreeable to PT. Reports she tires easily but no complaints of pain. Mental Status Patient Orientation: Person, Place, Time, Situation Transfers Functional [place] Measure 0=Not Assessed/NA 4=Minimal Assistance 1=Total Assistance 5=Supervision or Setup 2=Maximal Assistance 6=Modified [place] 3=Moderate Assistance 7=Complete IndependenceIRFPAI Quality Coding Scale 6 Independent with activity with or without an assistive device 5 Patient requires set up or clean up by helper. Patient completes activity by themselves 4 Supervision or touching assist (CGA). Frederic provide cues , steadying assist 3 The helper provides less than half the effort to complete the activity 2 The helper provides more than half the effort to complete the activity 1 Dependent. The helper does all the effort to complete an activity 7 Patient refused to complete or attempt activity 9 The patient did not perform the activity before the current illness or injury 88 Not attempted due to Medical conditions or safety concerns Transfers (B, C, W/C) (FIM): 5 Sit to Stand (QC): 5 Sit to stand x 3 reps with FWW with SBa. Weight Bearing Right Lower Extremity: Right Full Weight Bearing Left Lower Extremity: Left Full Weight Bearing Exercises Supine Ex: Heel Slides, Hip abd/add Supine Reps: 15 Seated Therapy Exercises: Ankle pumps, Long arc quads, Hip flexion Seated Reps: 15 Standing: Hamstring curls, Heel/toe raises, Marching, Mini squats Standing Reps: 15 Ther ex performed as she is on vapotherm and unable to walk in the curiel; ther ex used to work onf unctional standing activity/strength and activity tolerance. Rest breaks as needed. Assessment Current Status: Good Progress Pt tolerated well; requires intermittent rest breaks, but is motivated and seems to be doing more each day. Increased functional activity toleranc.e PT Short Term Goals Short Term Goals Transfers (B,C,W/C) (FIM): 5 PT Assisted Goals Assisted Goals PT Dredge Deckhand Goals Time Frame: Aug 20, 2017 Transfers (B,C,W/C) (FIM): 6 Sit to Lying (QC): 6 Lying-Sitting on Side/Bed(QC): 6 Sit to Stand (QC): 6 Rollin Chair/[id number] Xfer(QC): 6 Walk 50ft with 2 Turns (QC): 6 Walk 150 ft (QC): 6 Gait Level of Assist: 6 Gait Assistive Device: Cane Single Point PT Plan Problem List Problem List: Activity Tolerance, Functional Strength, Safety, Gait, Transfer Treatment/Plan Treatment Plan: Continue Plan of Care Treatment Plan: Functional Activity Herb, Gait, Safety, Therapeutic Exercise Treatment Duration: Aug 20, 2017 Frequency: 6 times per week Estimated Hrs Per Day: .25 hour per day Patient and/or Family Agrees t: Yes Safety Risks/Education Patient Education: Safety Issues Teaching Recipient: Patient Teaching Methods: Discussion Response to Teaching: Verbalize Understanding Time/GCodes Time In: 830 Time Out: 900 Total Billed Treatment Time: 30 Total Billed Treatment visit EX 30 PAOLA OLVERA PT Aug 14, 2017 10:18
[2017-08-14 12:00] VITALS: BP 114/57
--- NOTE | 2017-08-14 15:33 | Occupational Ther Daily Note ---
OT Current Status-Daily Note Subjective Pt. reports that her bottom hurts her. OT applied cream to it after washing it. Nursing aware. Appearance Pt. up in chair. Agrees to work with OT. Mental Status/Objective Patient Orientation: Person, Place, Time Functional [place] Measure 0=Not Assessed/NA 4=Minimal Assistance 1=Total Assistance 5=Supervision or Setup 2=Maximal Assistance 6=Modified [place] 3=Moderate Assistance 7=Complete [place] Attachments: IV, Oxygen ADL-Treatment Functional [place] Measure 0=Not Assessed/NA 4=Minimal Assistance 1=Total Assistance 5=Supervision or Setup 2=Maximal Assistance 6=Modified [place] 3=Moderate Assistance 7=Complete IndependenceIRFPAI Quality Coding Scale 6 Independent with activity with or without an assistive device 5 Patient requires set up or clean up by helper. Patient completes activity by themselves 4 Supervision or touching assist (CGA). [place] provide cues , steadying assist 3 The helper provides less than half the effort to complete the activity 2 The helper provides more than half the effort to complete the activity 1 Dependent. The helper does all the effort to complete an activity 7 Patient refused to complete or attempt activity 9 The patient did not perform the activity before the current illness or injury 88 Not attempted due to Medical conditions or safety concerns Bathing (FIM): 4 (Pt. required assist to wash rear lois area in stance. Able to wash all other parts. ) Lower Body Dressing (FIM): 5 (Pt. able to doff/don slipper socks with SBA. Does not want to don street clothing due to multiple lines and tubes.) Toileting (FIM): 3 (Pt. required assist to wash rear lois area after having BM. ) Toileting Hygiene (QC): 3 Transfers (B, C, W/C) (FIM): 5 Toilet/Commode Transfer (FIM): 5 Toilet Transfer (QC): 5 Education OT Patient Education: Correct positioning, Modified ADL techniques, Progress toward Goal/Update tx plan, Purpose of tx/functional activities, Reviewed precautions, Rehab process, Transfer techniques Teaching Recipient: Patient Teaching Methods: Demonstration, Discussion Response to Teaching: Verbalize Understanding, Return Demonstration OT Short Term Goals Short Term Goals Time Frame: Aug 20, 2017 Eating(FIM): 5 Grooming(FIM): 5 Bathing(FIM): 5 Upper Body Dressing(FIM): 5 Lower Body Dressing(FIM): 5 Toileting(FIM): 5 Transfers (B,C,W/C) (FIM): 5 Toilet/Commode Transfer(FIM): 5 Shower Transfer(FIM): 5 Additional Short Term Goals: 1-Demonstrate ADL Tasks, 2-Verbalize Understanding , 3-ImproveStrength/Herb 1=Demonstrate adherence to instructed precautions during ADL tasks. 2=Patient will verbalize/demonstrate understanding of assistive devices/ modifications for ADL. 3=Patient will improve strength/tolerance for activity to enable patient to perform ADL's. OT Retirement Goals Bench Repair Technician Goals Time Frame: Aug 27, 2017 Eating (FIM): 6 Eating (QC): 6 Groomin Oral Hygiene (QC): 6 Bathing(FIM): 6 Upper Body Dressing(FIM): 6 Lower Body Dressing(FIM): 6 Toileting(FIM): 6 Toileting Hygiene (QC): 6 Transfers (B,C,W/C) (FIM): 6 Toilet/Commode Transfer(FIM): 6 Toilet/Commode Transfer (QC): 6 Shower Transfer(FIM): 5 Additional Goals: 1-Demonstrate ADL Tasks, 2-Verbalize Understanding, 3- ImproveStrength/Herb 1=Demonstrate adherence to instructed precautions during ADL tasks. 2=Patient will verbalize/demonstrate understanding of assistive devices/ modifications for ADL. 3=Patient will improve strength/tolerance for activity to enable patient to perform ADL's. OT Education/Plan Problem List/Assessment Assessment: Decreased Activ Tolerance, Decreased UE Strength, Impaired I ADL's , Impaired Self-Care Skills Discharge Recommendations Plan/Recommendations: Continue POC Therapy D/C Recommendations: Home w/ Family Support, Occupational Therapy Home Care Treatment Plan/Plan of Care Treatment,Training & Education: Yes Patient would benefit from OT for education, treatment and training to promote independence in ADL's, mobility, safety and/or upper extremity function for ADL' s. Plan of Care: ADL Retraining, Functional Mobility, UE Funct Exercise/Act Treatment Duration: Aug 27, 2017 Frequency: 5 times per week Estimated Hrs Per Day: .25 hour per day Agreement: Yes Rehab Potential: Good Time/GCodes Start Time: 11:45 Stop Time: 12:15 Total Time Billed (hr/min): 30 Billed Treatment Time 1, ADL x 2 MORGAN DIAZ OT Aug 14, 2017 15:32
--- NOTE | 2017-08-14 15:51 | Cardiology Progress Note ---
Cardiology SOAP Progress Note Subjective: Slow improvement in shortness of breath. Objective: I&O/Vital Signs Vital Sign - Last 12Hours 08/14/17 08/14/17 08/14/17 08/14/17 04:00 06:47 07:00 08:00 Temp 99.5 98.6 Pulse 84 103 106 Resp 20 20 B/P (MAP) 107/58 (74) 108/59 (75) Pulse Ox 91 93 93 O2 Delivery Vapotherm Vapotherm Vapotherm O2 Flow Rate 40.00 12.00 40.00 12.00 12.00 FiO2 40 08/14/17 08/14/17 08/14/17 08/14/17 09:00 10:35 12:00 13:00 Temp 100.8 Pulse 94 93 Resp 18 B/P (MAP) 114/57 (76) Pulse Ox 93 92 O2 Delivery Vapotherm Vapotherm Vapotherm O2 Flow Rate 12.00 12.00 40.00 12.00 FiO2 40 40 08/14/17 14:57 Pulse Ox 98 O2 Delivery Vapotherm O2 Flow Rate 12.00 FiO2 40 Intake and Output 08/14/17 00:00 Intake Total 1970 ml Output Total 1050 ml Balance 920 ml Weight (Pounds): 133 Weight (Ounces): 6.0 Weight (Calculated Kilograms): 60.101995 Constitutional: No appears stated age, AAO x 3, No apparent distress, No PERRL , No well-developed, No well-nourished, No other Respiratory: No accessory muscle use, No respiratory distress, No chest tender , No chest expansion is symmetric, chest is bilaterally symmetric, No lungs clear to percussion, lungs clear to auscultation, No crackles, No rhonchi, No rales, No stridor, No wheezing, No pleural rub, No other Cardiovascular: regular rate-rhythm, No irregularly irregular, No extra beats, No parasternal heave is noted, No JVD, No edema, No bradycardia, No tachycardia , No point of maximal impulse, No cardiac thrills are palpable, S1 and S2, No gallop/S3, No gallop/S4, No diastolic murmur, No systolic murmur, No friction rub, No click, No other Gastrointestional: No tender, No soft, No round, No distended, No pulsatile mass, No organomegaly, No guarding, No rebound, No tenderness, No hernia, No mass, No audible bowel sounds, No abnormal bowel sounds, No abdominal bruits, No spleenomegaly, No other Extremities: No normal range of motion, No non-tender, No normal inspection, No pedal edema, No calf tenderness, No normal capillary refill, No pelvis stable , No calf tenderness, No inflammation, No pedal edema, No slow capillary refill , No swelling, No other, No abrasion, No clubbing, No cyanosis, No ecchymosis, No laceration, No no lower extremity edema bilateral, No significant edema, No tenderness, No wound Neurologic/Psychiatric: No state manager II-XII nml as tested, No no motor/sensory deficits, alert, normal mood/affect, oriented x 3, No abnormal cerebellar tests , No abnormal state manager II-XII, No abnormal gait, No aphasia, No EOM palsy, No facial droop, No motor weakness, No sensory deficit, No depressed affect, No disoriented x 3, No other, No grossly intact, No power is 5/5 both on sides Skin: No normal color, No warm/dry, No cyanosis, No cool, No diaphoresis, No damp, No ecchymosis, No jaundice, No mottled, No pallor, No rash, No tattoos/ piercings, No ulcerations, No rash on exposed areas, No ulcerations on exposed areas, No other Results/Procedures: Labs Laboratory Tests 08/13/17 16:49: Urine Color YELLOW, Urine Clarity CLEAR, Urine pH 6.5, Urine Specific [place] 1.010L, Urine Protein NEGATIVE, Urine Glucose (UA) NEGATIVE, Urine Ketones NEGATIVE, Urine Nitrite NEGATIVE, Urine Bilirubin NEGATIVE, Urine Urobilinogen NORMAL, Urine Leukocyte Esterase 1+H, Urine RBC (Auto) NEGATIVE, Urine RBC NONE , Urine WBC RARE, Urine Crystals NONE, Urine Bacteria NEGATIVE, Urine Casts NONE , Urine Mucus NEGATIVE, Urine Culture Indicated NO 08/14/17 05:56: White Blood Count 7.9, Red Blood Count 3.08L, Hemoglobin 9.8L, Hematocrit 30L, Mean Corpuscular Volume 96, Mean Corpuscular Hemoglobin 32, Mean Corpuscular Hemoglobin Concent 33, Red Cell Distribution Width 12.1, Platelet Count 226, Mean Platelet Volume 11.4H, Sodium Level 136, Potassium Level 4.3, Chloride Level 101, Carbon Dioxide Level 27, Anion Gap 8, Blood Urea Nitrogen 10, Creatinine 0.65, Estimat Glomerular Filtration Rate > 60, BUN/Creatinine Ratio 15, Glucose Level 104, Calcium Level 8.8 A/P: Assessment/Dx: Acute ST elevation myocardial infarction, resolved. Coronary artery disease Acute respiratory failure Hypotension Plan: Coronary artery disease status post acute ST elevation myocardial infarction involving the inferior wall associated with RV infarct, cardiac catheterization was carried out by Dr. Schumacher, successful intervention on the right coronary artery with occlusion of the right ventricular branch. Feeling better at this time. Anemia, stool for occult blood is negative. H&H are better. Continue to monitor Congestive heart failure, acute left ventricular diastolic dysfunction with right sided heart failure, ischemic cardiomyopathy, borderline hypotensive, add parameters for the beta blockers to hold for systolic blood pressure less than 100, cannot start BRETT inhibitor and/or ARB yet due to hypotension Hypotension - likely d/t RV infarct, better at this time. Continue to monitor Shortness of breath, bilateral pleural effusion, pulmonary edema and questionable pneumonia, receiving diuretics and antibiotics, slow improvement, continue on Zosyn and Lasix and monitor response and tolerance Coronary artery disease, status post cardiac catheterization done by Dr. Schumacher on 08/04/17: Mid vessel occlusion of the right coronary artery treated with overlapping stents (Alpine Xience 2.75 x 28 mm the distal part of which extends slightly into the right ventricular branch) and Alpine Xience 2.75 x 12 mm stent that was placed through the expanded struts of the previous stent and overlaps the stent to some degree. There is no significant residual stenosis in the right coronary artery and the flow was normal, but right ventricular branch was lost during the procedure due to infarct-related thrombus. A 90% to 95% stenosis of the proximal left circumflex artery, which was treated with stenting with Alpine Xience 2.25 x 12 mm stent with reduction of stenosis to 0% residual. The left anterior descending artery has diffuse [id number] disease Thrombocytopenia, improved, unlikely to be HIT, followed and managed by Dr. Diza Well preserved global left ventricular systolic function with ejection fraction 60%, postero-basal hypokinesis, no significant mitral regurgitation and mild elevation of left ventricular end-diastolic pressure on LHC of 08/04/17, continue to monitor closely Paroxysmal atrial fib/flutter, currently in sinus rhythm, had one episode of atrial fibrillation after her myocardial infarction, has been maintaining sinus rhythm, I will keep monitoring her in telemetry and keep her off Eliquis for now TSH 0.26 on lab of - indicative of hyperthyroidism Elevated transaminases likely d/t STEMI, continue to monitor Thank you for your consultation. Please call me if you have any questions. Anders Ryan MD, FACP, FACC, FSCAI, FHRS, CCDS Interventional Cardiology Cardiac Electrophysiology Vascular Medicine and Endovascular Interventions Ole RYAN MD Aug 14, 2017 3:50 pm
[2017-08-14 16:20] VITALS: BP 98/50
[2017-08-14] MEDS: ATORVASTATIN 80 MG (LIPITOR) TABLET PO SCH (20:18)
[2017-08-14 20:20] VITALS: BP 98/55
[2017-08-14 20:45] VITALS: BP 106/52
[2017-08-15] VITALS: BP 120/58
[2017-08-15] MEDS: PIPERACILLIN SODIUM/TAZOBACTAM 4.5 GM in NS (IVPB) 100 ML IV SCH ×3 (01:40→16:27)
[2017-08-15 04:00] VITALS: BP 92/51
[2017-08-15 05:56] LABS: HEMOGLOBIN 9.2 G/DL (11.5-16.0); MEAN PLATELET VOLUME 11.1 FL (7.4-10.4); RED BLOOD COUNT 2.91 10^6/uL (4.35-5.85); WHITE BLOOD COUNT 6.2 10^3/uL (4.3-11.0)
[2017-08-15] MEDS: PANTOPRAZOLE 40 MG (PROTONIX) TAB PO SCH (06:05)
[2017-08-15] MEDS: LACTOBACILLUS Acidoph/Bulgar (LACTINEX/FLORANEX) TAB PO SCH ×3 (06:05→16:27)
[2017-08-15] MEDS: CHOLESTYRAMINE 4 GM (QUESTRAN LITE, PREVALITE) PKT PO SCH ×4 (06:05→21:21)
[2017-08-15] MEDS: FUROSEMIDE 40 MG/4 ML INJ (LASIX) IVP SCH ×2 (06:05→16:27)
[2017-08-15 06:12] LABS: BUN/CREATININE RATIO 16; CALCIUM 8.4 MG/DL (8.5-10.1); CARBON DIOXIDE 25 MMOL/L (21-32); CHLORIDE 103 MMOL/L (98-107); CREATININE SERUM 0.63 MG/DL (0.60-1.30); GFR ESTIMATED > 60; GLUCOSE 101 MG/DL (70-105); POTASSIUM 4.2 MMOL/L (3.6-5.0); SODIUM 136 MMOL/L (135-145)
--- NOTE | 2017-08-15 06:23 | Pulmonary Progress Note ---
Exam Exam Vital Signs Date Time Temp Pulse Resp B/P (MAP) Pulse Ox O2 Delivery O2 Flow Rate FiO2 08/15/17 04:00 96.5 83 18 92/51 (65) 94 Vapotherm 40.00 10.00 08/15/17 01:00 84 08/15/17 00:00 96.9 90 20 120/58 (78) Vapotherm 30.00 10.00 08/14/17 20:45 99.3 90 18 106/52 (70) 91 Vapotherm 30.00 10.00 08/14/17 20:20 95 98/55 (69) 08/14/17 20:10 Vapotherm 10.00 30 08/14/17 19:31 90 Vapotherm 10.00 30 08/14/17 19:00 93 08/14/17 16:20 99.5 93 18 98/50 (66) 94 Vapotherm 30.00 10.00 08/14/17 14:57 98 Vapotherm 12.00 40 08/14/17 13:00 93 08/14/17 12:00 100.8 94 18 114/57 (76) 92 Vapotherm 40.00 12.00 08/14/17 10:35 93 Vapotherm 12.00 40 08/14/17 09:00 Vapotherm 12.00 40 08/14/17 08:00 98.6 106 20 108/59 (75) 93 Vapotherm 40.00 12.00 08/14/17 07:00 103 08/14/17 06:47 93 Vapotherm 12.00 40 I & O 08/15/17 07:00 Intake Total 1420 ml Output Total 900 ml Balance 520 ml General Appearance: No Apparent Distress, WD/WN, Other (On Vapotherm) HEENT: Normal ENT Inspection Neck: Full Range of Motion, Normal Inspection Respiratory: No Accessory Muscle Use, No Respiratory Distress, Decreased Breath Sounds Cardiovascular: Regular Rate, Rhythm, No Murmur Results Lab Laboratory Tests 08/14/17 05:56 08/15/17 05:35 Assessment/Plan Assessment/Plan Acute Respiratory failure secondary to pulmonary edema - zosyn -Lasix -Cultures are negative -Influenza is negative Pneumonia -Zosyn for now STEMI post cath -plavix CAD Afib/flutter 232 JUANA WILLS DO Aug 15, 2017 06:23
--- NOTE | 2017-08-15 07:58 | Progress Note (SOAP) ---
Subjective Time Seen by Provider: 07:55 Subjective/Events-last exam Patient feeling a little better. Patient still little short of breath. Patient to be converted to cannula from Vapotherm. Chest x-ray yesterday the same Objective Exam Vital Signs Date Time Temp Pulse Resp B/P (MAP) Pulse Ox O2 Delivery O2 Flow Rate FiO2 08/15/17 04:00 96.5 83 18 92/51 (65) 94 Vapotherm 40.00 10.00 08/15/17 01:00 84 08/15/17 00:00 96.9 90 20 120/58 (78) Vapotherm 30.00 10.00 08/14/17 20:45 99.3 90 18 106/52 (70) 91 Vapotherm 30.00 10.00 08/14/17 20:20 95 98/55 (69) 08/14/17 20:10 Vapotherm 10.00 30 08/14/17 19:31 90 Vapotherm 10.00 30 08/14/17 19:00 93 08/14/17 16:20 99.5 93 18 98/50 (66) 94 Vapotherm 30.00 10.00 08/14/17 14:57 98 Vapotherm 12.00 40 08/14/17 13:00 93 08/14/17 12:00 100.8 94 18 114/57 (76) 92 Vapotherm 40.00 12.00 08/14/17 10:35 93 Vapotherm 12.00 40 08/14/17 09:00 Vapotherm 12.00 40 08/14/17 08:00 98.6 106 20 108/59 (75) 93 Vapotherm 40.00 12.00 I & O 08/15/17 07:00 Intake Total 1470 ml Output Total 900 ml Balance 570 ml Capillary Refill : General Appearance: No Apparent Distress, WD/WN HEENT: Normal ENT Inspection Neck: Full Range of Motion Respiratory: No Accessory Muscle Use, No Respiratory Distress, Decreased Breath Sounds Cardiovascular: Regular Rate, Rhythm, No Murmur Gastrointestinal: non tender, soft Results Lab Laboratory Tests 08/15/17 05:35: White Blood Count 6.2, Red Blood Count 2.91L, Hemoglobin 9.2L, Hematocrit 28L, Mean Corpuscular Volume 95, Mean Corpuscular Hemoglobin 32, Mean Corpuscular Hemoglobin Concent 33, Red Cell Distribution Width 12.0, Platelet Count 228, Mean Platelet Volume 11.1H, Sodium Level 136, Potassium Level 4.2, Chloride Level 103, Carbon Dioxide Level 25, Anion Gap 8, Blood Urea Nitrogen 10, Creatinine 0.63, Estimat Glomerular Filtration Rate > 60, BUN/Creatinine Ratio 16, Glucose Level 101, Calcium Level 8.4L Microbiology 08/13/17 Blood Culture - Preliminary, Resulted No growth Assessment/Plan Assessment/Plan Assess & Plan/Chief Complaint Acute ST elevated [place] resolved. Coronary artery disease. Hypotension now. Acute respiratory failure. Patient still on Vapotherm. Patient still a work in progress. . 08/15/17. Acute ST elevated [place]. Coronary artery disease. Hypotension. Acute respiratory failure. To be taken off Vapotherm today. Patient still has some shortness of breath with exertion. Clinical Quality Measures DVT/VTE Risk/Contraindication: Risk Factor Score Per Nursin ABRAM BRITT DO Aug 15, 2017 07:58
[2017-08-15 08:00] VITALS: BP 92/52
--- NOTE | 2017-08-15 08:51 | Diagnostic Imaging Report ---
INDICATION: Shortness of breath. Time of exam 8:44 AM Correlation is made with prior study from one day earlier. Bilateral pulmonary infiltrates, greatest on the right persists. Left perihilar and left upper lobe infiltrate is unchanged. No effusion is seen. Right hemidiaphragm is chronically elevated. No effusion or pneumothorax is detected. IMPRESSION: Bilateral infiltrates, similar in appearance to the examination one day earlier. Dictated by: Dictated on workstation # [id number]
[2017-08-15] MEDS: meTOprolol TARTRATE 25 MG (LOPRESSOR) TABLET PO SCH ×2 (09:18→21:20)
[2017-08-15] MEDS: CLOPIDOGREL 75 MG (PLAVIX) TABLET PO SCH (09:21)
[2017-08-15] MEDS: ASPIRIN E.C. 81 MG (ECOTRIN) TAB PO SCH (09:21)
[2017-08-15] MEDS: HYDROCORTISONE 2.5% CREAM (ANUSOL-HC) 30 GM TOP SCH ×2 (09:22→21:21)
--- NOTE | 2017-08-15 10:24 | Occupational Ther Daily Note ---
OT Current Status-Daily Note Subjective Pt. reports no pain. Appearance Pt. up in chair. Has been changed from vapotherm to regular oxygen. Agrees to shower. Mental Status/Objective Patient Orientation: Person, Place Functional [place] Measure 0=Not Assessed/NA 4=Minimal Assistance 1=Total Assistance 5=Supervision or Setup 2=Maximal Assistance 6=Modified [place] 3=Moderate Assistance 7=Complete [place] Attachments: IV, Oxygen ADL-Treatment Functional [place] Measure 0=Not Assessed/NA 4=Minimal Assistance 1=Total Assistance 5=Supervision or Setup 2=Maximal Assistance 6=Modified [place] 3=Moderate Assistance 7=Complete IndependenceIRFPAI Quality Coding Scale 6 Independent with activity with or without an assistive device 5 Patient requires set up or clean up by helper. Patient completes activity by themselves 4 Supervision or touching assist (CGA). [place] provide cues , steadying assist 3 The helper provides less than half the effort to complete the activity 2 The helper provides more than half the effort to complete the activity 1 Dependent. The helper does all the effort to complete an activity 7 Patient refused to complete or attempt activity 9 The patient did not perform the activity before the current illness or injury 88 Not attempted due to Medical conditions or safety concerns Grooming (FIM): 4 (Min assist to thoroughly comb hair.) Bathing (FIM): 4 (Min assist to wash rear lois area. Pt. able to wash all other parts.) Lower Body Dressing (FIM): 5 (Pt. able to doff/don socks.) Toileting (FIM): 3 (Pt. had BM. [place] like she could not thoroughly cleanse self. OT did this for her.) Toileting Hygiene (QC): 3 Transfers (B, C, W/C) (FIM): 4 (CGA to stand and ambulate with walker.) Toilet/Commode Transfer (FIM): 5 Toilet Transfer (QC): 5 Shower Transfer(FIM): 4 Other Treatment OT took shower with oxygen on. Several brief rest breaks taken. Education OT Patient Education: Correct positioning, Energy conservation, Modified ADL techniques, Progress toward Goal/Update tx plan, Purpose of tx/functional activities, Reviewed precautions, Rehab process, Transfer techniques Teaching Recipient: Patient Teaching Methods: Demonstration, Discussion Response to Teaching: Verbalize Understanding, Return Demonstration OT Short Term Goals Short Term Goals Time Frame: Aug 20, 2017 Eating(FIM): 5 Grooming(FIM): 5 Bathing(FIM): 5 Upper Body Dressing(FIM): 5 Lower Body Dressing(FIM): 5 Toileting(FIM): 5 Transfers (B,C,W/C) (FIM): 5 Toilet/Commode Transfer(FIM): 5 Shower Transfer(FIM): 5 Additional Short Term Goals: 1-Demonstrate ADL Tasks, 2-Verbalize Understanding , 3-ImproveStrength/Herb 1=Demonstrate adherence to instructed precautions during ADL tasks. 2=Patient will verbalize/demonstrate understanding of assistive devices/ modifications for ADL. 3=Patient will improve strength/tolerance for activity to enable patient to perform ADL's. OT Furnace Operator Oil Or Gas Goals [place] Goals Time Frame: Aug 27, 2017 Eating (FIM): 6 Eating (QC): 6 Groomin Oral Hygiene (QC): 6 Bathing(FIM): 6 Upper Body Dressing(FIM): 6 Lower Body Dressing(FIM): 6 Toileting(FIM): 6 Toileting Hygiene (QC): 6 Transfers (B,C,W/C) (FIM): 6 Toilet/Commode Transfer(FIM): 6 Toilet/Commode Transfer (QC): 6 Shower Transfer(FIM): 5 Additional Goals: 1-Demonstrate ADL Tasks, 2-Verbalize Understanding, 3- ImproveStrength/Herb 1=Demonstrate adherence to instructed precautions during ADL tasks. 2=Patient will verbalize/demonstrate understanding of assistive devices/ modifications for ADL. 3=Patient will improve strength/tolerance for activity to enable patient to perform ADL's. OT Education/Plan Problem List/Assessment Assessment: Decreased Activ Tolerance, Impaired I ADL's, Impaired Self-Care Skills Discharge Recommendations Plan/Recommendations: Continue POC Therapy D/C Recommendations: Home w/ Family Support, Occupational Therapy Home Care Treatment Plan/Plan of Care Treatment,Training & Education: Yes Patient would benefit from OT for education, treatment and training to promote independence in ADL's, mobility, safety and/or upper extremity function for ADL' s. Plan of Care: ADL Retraining, Functional Mobility, UE Funct Exercise/Act Treatment Duration: Aug 27, 2017 Frequency: 5 times per week Estimated Hrs Per Day: .25 hour per day Agreement: Yes Rehab Potential: Good Time/GCodes Start Time: 09:00 Stop Time: 09:35 Total Time Billed (hr/min): 35 Billed Treatment Time 1, ADL x 2 MORGAN DIAZ OT Aug 15, 2017 10:24
--- NOTE | 2017-08-15 11:30 | Physical Therapy Daily Note ---
PT Daily Note-Current Subjective Agreeable to PT. Reports she showered earlier today. Pain Numeric Pain Scale: 0-No Pain Location: No Pain Reported Mental Status Patient Orientation: Person, Place, Time, Situation Attachments: Oxygen (6 l/min) Transfers Functional [place] Measure 0=Not Assessed/NA 4=Minimal Assistance 1=Total Assistance 5=Supervision or Setup 2=Maximal Assistance 6=Modified [place] 3=Moderate Assistance 7=Complete IndependenceIRFPAI Quality Coding Scale 6 Independent with activity with or without an assistive device 5 Patient requires set up or clean up by helper. Patient completes activity by themselves 4 Supervision or touching assist (CGA). [place] provide cues , steadying assist 3 The helper provides less than half the effort to complete the activity 2 The helper provides more than half the effort to complete the activity 1 Dependent. The helper does all the effort to complete an activity 7 Patient refused to complete or attempt activity 9 The patient did not perform the activity before the current illness or injury 88 Not attempted due to Medical conditions or safety concerns Sit to/from Stand: 5 Weight Bearing Right Lower Extremity: Right Full Weight Bearing Left Lower Extremity: Left Full Weight Bearing Gait Training Gait (FIM): 2 Distance (FIM): 4=387-78 ft Distance: 120 ft Gait Level of Assist: 4 Gait Persons Needed: 1 Gait Assistive Device: FWW safe and steady gait with normal yonis/speed. Assessment Current Status: Good Progress Tolerated progression to ambulation well. PT Short Term Goals Short Term Goals Transfers (B,C,W/C) (FIM): 5 PT Rn Diabetes Goals Long-Term Goals PT Rn Diabetes Goals Time Frame: Aug 20, 2017 Transfers (B,C,W/C) (FIM): 6 Gait Level of Assist: 6 Gait Assistive Device: Cane Single Point PT Plan Problem List Problem List: Activity Tolerance, Functional Strength, Safety Treatment/Plan Treatment Plan: Continue Plan of Care Treatment Plan: Functional Activity Herb, Gait, Safety, Therapeutic Exercise Treatment Duration: Aug 20, 2017 Frequency: 6 times per week Estimated Hrs Per Day: .25 hour per day Patient and/or Family Agrees t: Yes Safety Risks/Education Patient Education: Transfer Techniques, Safety Issues Teaching Recipient: Patient Teaching Methods: Demonstration, Discussion Response to Teaching: Verbalize Understanding Time/GCodes Time In: 1025 Time Out: 1051 Total Billed Treatment Time: 26 Total Billed Treatment visit FA 10 GT 16 PAOLA OLVERA PT Aug 15, 2017 11:30
[2017-08-15 12:00] VITALS: BP 96/52
--- NOTE | 2017-08-15 12:05 | Cardiology Progress Note ---
Cardiology SOAP Progress Note Subjective: Improving gradually. No acute shortness of breath today Objective: I&O/Vital Signs Vital Sign - Last 12Hours 08/15/17 08/15/17 08/15/17 08/15/17 01:00 04:00 07:51 08:00 Temp 96.5 98.7 Pulse 84 83 96 Resp 18 20 B/P (MAP) 92/51 (65) 92/52 (65) Pulse Ox 94 98 97 O2 Delivery Vapotherm Vapotherm Vapotherm O2 Flow Rate 40.00 10.00 40.00 10.00 12.00 FiO2 40 08/15/17 12:00 Temp 98.7 Pulse 91 Resp 18 B/P (MAP) 96/52 (67) Pulse Ox 96 O2 Delivery Nasal Cannula O2 Flow Rate 5.00 Intake and Output 08/15/17 00:00 Intake Total 1320 ml Output Total 900 ml Balance 420 ml Weight (Pounds): 133 Weight (Ounces): 6.0 Weight (Calculated Kilograms): 60.393552 Constitutional: No appears stated age, AAO x 3, No apparent distress, No PERRL , No well-developed, No well-nourished, No other Respiratory: No accessory muscle use, No respiratory distress, No chest tender , No chest expansion is symmetric, chest is bilaterally symmetric, No lungs clear to percussion, lungs clear to auscultation, No crackles, No rhonchi, No rales, No stridor, No wheezing, No pleural rub, No other Cardiovascular: regular rate-rhythm, No irregularly irregular, No extra beats, No parasternal heave is noted, No JVD, No edema, No bradycardia, No tachycardia , No point of maximal impulse, No cardiac thrills are palpable, S1 and S2, No gallop/S3, No gallop/S4, No diastolic murmur, No systolic murmur, No friction rub, No click, No other Gastrointestional: No tender, No soft, No round, No distended, No pulsatile mass, No organomegaly, No guarding, No rebound, No tenderness, No hernia, No mass, No audible bowel sounds, No abnormal bowel sounds, No abdominal bruits, No spleenomegaly, No other Extremities: No normal range of motion, No non-tender, No normal inspection, No pedal edema, No calf tenderness, No normal capillary refill, No pelvis stable , No calf tenderness, No inflammation, No pedal edema, No slow capillary refill , No swelling, No other, No abrasion, No clubbing, No cyanosis, No ecchymosis, No laceration, No no lower extremity edema bilateral, No significant edema, No tenderness, No wound Neurologic/Psychiatric: No welding engineer II-XII nml as tested, No no motor/sensory deficits, alert, normal mood/affect, oriented x 3, No abnormal cerebellar tests , No abnormal welding engineer II-XII, No abnormal gait, No aphasia, No EOM palsy, No facial droop, No motor weakness, No sensory deficit, No depressed affect, No disoriented x 3, No other, No grossly intact, No power is 5/5 both on sides Skin: No normal color, No warm/dry, No cyanosis, No cool, No diaphoresis, No damp, No ecchymosis, No jaundice, No mottled, No pallor, No rash, No tattoos/ piercings, No ulcerations, No rash on exposed areas, No ulcerations on exposed areas, No other Results/Procedures: Labs Laboratory Tests 08/15/17 05:35: White Blood Count 6.2, Red Blood Count 2.91L, Hemoglobin 9.2L, Hematocrit 28L, Mean Corpuscular Volume 95, Mean Corpuscular Hemoglobin 32, Mean Corpuscular Hemoglobin Concent 33, Red Cell Distribution Width 12.0, Platelet Count 228, Mean Platelet Volume 11.1H, Sodium Level 136, Potassium Level 4.2, Chloride Level 103, Carbon Dioxide Level 25, Anion Gap 8, Blood Urea Nitrogen 10, Creatinine 0.63, Estimat Glomerular Filtration Rate > 60, BUN/Creatinine Ratio 16, Glucose Level 101, Calcium Level 8.4L Microbiology 08/13/17 Blood Culture - Preliminary, Resulted No growth A/P: Assessment/Dx: Acute ST elevation myocardial infarction, resolved. Coronary artery disease Acute respiratory failure Hypotension Plan: Coronary artery disease status post acute ST elevation myocardial infarction involving the inferior wall associated with RV infarct, cardiac catheterization was carried out by Dr. Schumacher, successful intervention on the right coronary artery with occlusion of the right ventricular branch. Feeling better at this time. Anemia, stool for occult blood is negative. H&H are better. Continue to monitor Congestive heart failure, acute left ventricular diastolic dysfunction with right sided heart failure, ischemic cardiomyopathy, borderline hypotensive, add parameters for the beta blockers to hold for systolic blood pressure less than 100, cannot start BRETT inhibitor and/or ARB yet due to hypotension Hypotension - likely d/t RV infarct, better at this time. Continue to monitor Shortness of breath, bilateral pleural effusion, pulmonary edema and questionable pneumonia, receiving diuretics and antibiotics, slow improvement, continue on Zosyn and Lasix and monitor response and tolerance Coronary artery disease, status post cardiac catheterization done by Dr. Schumacher on 08/04/17: Mid vessel occlusion of the right coronary artery treated with overlapping stents (Alpine Xience 2.75 x 28 mm the distal part of which extends slightly into the right ventricular branch) and Alpine Xience 2.75 x 12 mm stent that was placed through the expanded struts of the previous stent and overlaps the stent to some degree. There is no significant residual stenosis in the right coronary artery and the flow was normal, but right ventricular branch was lost during the procedure due to infarct-related thrombus. A 90% to 95% stenosis of the proximal left circumflex artery, which was treated with stenting with Alpine Xience 2.25 x 12 mm stent with reduction of stenosis to 0% residual. The left anterior descending artery has diffuse [id number] disease Thrombocytopenia, improved, unlikely to be HIT, followed and managed by Dr. Diaz Well preserved global left ventricular systolic function with ejection fraction 60%, postero-basal hypokinesis, no significant mitral regurgitation and mild elevation of left ventricular end-diastolic pressure on [facility] of 08/04/17, continue to monitor closely Paroxysmal atrial fib/flutter, currently in sinus rhythm, had one episode of atrial fibrillation after her myocardial infarction, has been maintaining sinus rhythm, I will keep monitoring her in telemetry and keep her off Eliquis for now TSH 0.26 on lab of - indicative of hyperthyroidism Elevated transaminases likely d/t STEMI, continue to monitor Thank you for your consultation. Please call me if you have any questions. Anders Ryan MD, FACP, FACC, FSCAI, FHRS, CCDS Interventional Cardiology Cardiac Electrophysiology Vascular Medicine and Endovascular Interventions Ole RYAN MD Aug 15, 2017 12:05
[2017-08-15 16:38] VITALS: BP 103/51
[2017-08-15 20:37] VITALS: BP 100/50
[2017-08-15] MEDS: ATORVASTATIN 80 MG (LIPITOR) TABLET PO SCH (21:21)
[2017-08-16] VITALS: BP 91/54
[2017-08-16] MEDS: PIPERACILLIN SODIUM/TAZOBACTAM 4.5 GM in NS (IVPB) 100 ML IV SCH ×2 (01:46→09:18)
[2017-08-16 03:58] VITALS: BP 93/50
[2017-08-16] MEDS: LACTOBACILLUS Acidoph/Bulgar (LACTINEX/FLORANEX) TAB PO SCH ×3 (06:18→15:33)
[2017-08-16] MEDS: PANTOPRAZOLE 40 MG (PROTONIX) TAB PO SCH (06:18)
[2017-08-16] MEDS: CHOLESTYRAMINE 4 GM (QUESTRAN LITE, PREVALITE) PKT PO SCH ×4 (06:19→20:47)
[2017-08-16] MEDS: FUROSEMIDE 40 MG/4 ML INJ (LASIX) IVP SCH ×2 (06:19→16:57)
[2017-08-16 08:17] VITALS: BP 97/64
[2017-08-16] MEDS: meTOprolol TARTRATE 25 MG (LOPRESSOR) TABLET PO SCH ×2 (09:00→20:47)
[2017-08-16] MEDS: HYDROCORTISONE 2.5% CREAM (ANUSOL-HC) 30 GM TOP SCH ×2 (09:00→20:47)
[2017-08-16] MEDS: CLOPIDOGREL 75 MG (PLAVIX) TABLET PO SCH (09:17)
[2017-08-16] MEDS: ASPIRIN E.C. 81 MG (ECOTRIN) TAB PO SCH (09:17)
[2017-08-16 12:11] VITALS: BP 95/54
--- NOTE | 2017-08-16 12:23 | Physical Therapy Daily Note ---
PT Daily Note-Current Subjective Pt. up in chair upon arrival and agrees to therapy. She denies pain. Mental Status Patient Orientation: Person, Place, Time, Situation Attachments: Oxygen, IV Transfers Functional [place] Measure 0=Not Assessed/NA 4=Minimal Assistance 1=Total Assistance 5=Supervision or Setup 2=Maximal Assistance 6=Modified [place] 3=Moderate Assistance 7=Complete IndependenceIRFPAI Quality Coding Scale 6 Independent with activity with or without an assistive device 5 Patient requires set up or clean up by helper. Patient completes activity by themselves 4 Supervision or touching assist (CGA). Irons provide cues , steadying assist 3 The helper provides less than half the effort to complete the activity 2 The helper provides more than half the effort to complete the activity 1 Dependent. The helper does all the effort to complete an activity 7 Patient refused to complete or attempt activity 9 The patient did not perform the activity before the current illness or injury 88 Not attempted due to Medical conditions or safety concerns Transfers (B, C, W/C) (FIM): 5 Sit to Stand (QC): 5 Weight Bearing Right Lower Extremity: Right Full Weight Bearing Left Lower Extremity: Left Full Weight Bearing Gait Training Does the Patient Walk?: Yes Gait (FIM): 5 Distance (FIM): 3=150 ft Distance: 150 ft Gait Level of Assist: 5 Gait Persons Needed: 1 Gait Assistive Device: FWW assist with O2 tank Exercises Seated Therapy Exercises: Ankle pumps, Sit to stand, Long arc quads, Hip flexion Seated Reps: 10 Treatments gait, LE exercise Assessment Current Status: Good Progress Pt. becomes SOB during ambulation but is steady throughout, slowed gait speed. Pt. does well with transfers and LE exercises. Pt. returned to bedside chair post session with call light, O2 in situ and all needs met. PT Short Term Goals Short Term Goals Transfers (B,C,W/C) (FIM): 5 PT Detention Goals Detention Goals PT Detention Goals Time Frame: Aug 20, 2017 Transfers (B,C,W/C) (FIM): 6 Sit to Lying (QC): 6 Lying-Sitting on Side/Bed(QC): 6 Sit to Stand (QC): 6 Rollin Chair/Dvn-[id number] Xfer(QC): 6 Walk 50ft with 2 Turns (QC): 6 Walk 150 ft (QC): 6 Gait Level of Assist: 6 Gait Assistive Device: Cane Single Point PT Plan Treatment/Plan Treatment Plan: Continue Plan of Care Treatment Plan: Functional Activity Herb, Gait, Safety, Therapeutic Exercise Treatment Duration: Aug 20, 2017 Frequency: 6 times per week Estimated Hrs Per Day: .25 hour per day Patient and/or Family Agrees t: Yes Time/GCodes Time In: 0838 Time Out: 902 Total Billed Treatment Time: 24 Total Billed Treatment 1, GT 15', Ex 9' NATALY HUBER PT Aug 16, 2017 12:23
--- NOTE | 2017-08-16 12:59 | Progress Note-Standard ---
Standard Progress Note Progress Notes/Assess & Plan Date Seen 08/16/17 Time Seen by Provider: 10:45 Assess & Plan/Chief Complaint Previous current and previous problem list by this examiner: Assessment: Severe debility Acute myocardial infarction status post cardiac catheterization with intervention Volume overload with pulmonary edema on CT scan chest requiring aggressive diuresis Hypoxia stable on Vapotherm Episode of atrial fib captured on telemetry 4 days ago no further episodes Infiltrate on chest x-ray with pulmonary edema on CT scan Dr Quan ordered IV Lasix but maintained on Zosyn empirically Anemia of critical illness and phlebotomy since hospitalized Thrombocytopenia w/o DIC evidence per Hematology s/p elevated Lactic acid likely due to episode of hypotension the day before now resolved Loose stools started Lactinex and Questran and Imodium now much improved Severe Hypokalemia due to diuresis replacing per protocol Patient doing much better now in swing bed working with therapy at this is to be a slow recovery Bowels are doing much better not as loose and overall improved Denies any pain Weaning off oxygen Will go to rehabilitation on Friday and agreeable for that No fever, vital signs stable, pleasant, improved, frail, debilitated, pleasant and cooperative Regular rate and rhythm, clear to auscultation bilaterally except for crackles in the bases no essential change since last assessed Trace edema lower extremities Assessment: Severe debility requiring SB status until strong enough for IRU Acute myocardial infarction status post cardiac catheterization with intervention Volume overload with pulmonary edema on CT scan chest requiring aggressive diuresis Hypoxia stable on Vapotherm Episode of atrial fib captured on telemetry 4 days ago no further episodes Infiltrate on chest x-ray with pulmonary edema on CT scan Dr Quan ordered IV Lasix but maintained on Zosyn empirically but will DC today Anemia of critical illness and phlebotomy since hospitalized Thrombocytopenia w/o DIC evidence per Hematology s/p elevated Lactic acid likely due to episode of hypotension the day before now resolved Loose stools started Lactinex and Questran and Imodium now much improved Severe Hypokalemia due to diuresis replacing per protocol Plan: Maintain therapy and SB status then move to IRU Friday DC Zosyn after no fever noted and labs normal and no evidence of acute issue Labs Laboratory Tests 08/15/17 05:35 ZHANNA CARMONA DO Aug 16, 2017 12:59
--- NOTE | 2017-08-16 13:57 | Cardiology Progress Note ---
Cardiology SOAP Progress Note Subjective: Gradually improving shortness of breath Objective: I&O/Vital Signs Vital Sign - Last 12Hours 08/16/17 08/16/17 08/16/17 12:11 13:00 16:22 Temp 100.0 98.8 Pulse 88 93 90 Resp 19 20 B/P (MAP) 95/54 (68) 100/58 (72) Pulse Ox 97 97 O2 Delivery Nasal Cannula Nasal Cannula O2 Flow Rate 3.00 3.00 Intake and Output 08/16/17 00:00 Intake Total 1060 ml Balance 1060 ml Weight (Pounds): 133 Weight (Ounces): 6.0 Weight (Calculated Kilograms): 60.721623 Constitutional: No appears stated age, AAO x 3, No apparent distress, No PERRL , No well-developed, No well-nourished, No other Respiratory: No accessory muscle use, No respiratory distress, No chest tender , No chest expansion is symmetric, chest is bilaterally symmetric, No lungs clear to percussion, lungs clear to auscultation, No crackles, No rhonchi, No rales, No stridor, No wheezing, No pleural rub, No other Cardiovascular: regular rate-rhythm, No irregularly irregular, No extra beats, No parasternal heave is noted, No JVD, No edema, No bradycardia, No tachycardia , No point of maximal impulse, No cardiac thrills are palpable, S1 and S2, No gallop/S3, No gallop/S4, No diastolic murmur, No systolic murmur, No friction rub, No click, No other Gastrointestional: No tender, No soft, No round, No distended, No pulsatile mass, No organomegaly, No guarding, No rebound, No tenderness, No hernia, No mass, No audible bowel sounds, No abnormal bowel sounds, No abdominal bruits, No spleenomegaly, No other Extremities: No normal range of motion, No non-tender, No normal inspection, No pedal edema, No calf tenderness, No normal capillary refill, No pelvis stable , No calf tenderness, No inflammation, No pedal edema, No slow capillary refill , No swelling, No other, No abrasion, No clubbing, No cyanosis, No ecchymosis, No laceration, No no lower extremity edema bilateral, No significant edema, No tenderness, No wound Neurologic/Psychiatric: No watchguard II-XII nml as tested, No no motor/sensory deficits, alert, normal mood/affect, oriented x 3, No abnormal cerebellar tests , No abnormal watchguard II-XII, No abnormal gait, No aphasia, No EOM palsy, No facial droop, No motor weakness, No sensory deficit, No depressed affect, No disoriented x 3, No other, No grossly intact, No power is 5/5 both on sides Skin: No normal color, No warm/dry, No cyanosis, No cool, No diaphoresis, No damp, No ecchymosis, No jaundice, No mottled, No pallor, No rash, No tattoos/ piercings, No ulcerations, No rash on exposed areas, No ulcerations on exposed areas, No other Results/Procedures: Labs Microbiology 08/13/17 Blood Culture - Preliminary, Resulted No growth A/P: Assessment/Dx: Acute ST elevation myocardial infarction, resolved. Coronary artery disease Acute respiratory failure Hypotension Plan: Coronary artery disease status post acute ST elevation myocardial infarction involving the inferior wall associated with RV infarct, cardiac catheterization was carried out by Dr. Schumacher, successful intervention on the right coronary artery with occlusion of the right ventricular branch. Feeling better at this time. Aspirin, Plavix, statin, beta felton. Anemia, stool for occult blood is negative. H&H are better. Continue to monitor Congestive heart failure, acute left ventricular diastolic dysfunction with right sided heart failure, ischemic cardiomyopathy, borderline hypotensive, add parameters for the beta blockers to hold for systolic blood pressure less than 100, cannot start BRETT inhibitor and/or ARB yet due to hypotension Hypotension - likely d/t RV infarct, better at this time. Continue to monitor Shortness of breath, bilateral pleural effusion, pulmonary edema and questionable pneumonia, receiving diuretics and antibiotics, slow improvement, continue on Zosyn and Lasix and monitor response and tolerance Coronary artery disease, status post cardiac catheterization done by Dr. Schumacher on 08/04/17: Mid vessel occlusion of the right coronary artery treated with overlapping stents (Alpine Xience 2.75 x 28 mm the distal part of which extends slightly into the right ventricular branch) and Alpine Xience 2.75 x 12 mm stent that was placed through the expanded struts of the previous stent and overlaps the stent to some degree. There is no significant residual stenosis in the right coronary artery and the flow was normal, but right ventricular branch was lost during the procedure due to infarct-related thrombus. A 90% to 95% stenosis of the proximal left circumflex artery, which was treated with stenting with Alpine Xience 2.25 x 12 mm stent with reduction of stenosis to 0% residual. The left anterior descending artery has diffuse [id number] disease Thrombocytopenia, improved, unlikely to be HIT, followed and managed by Dr. Diaz Well preserved global left ventricular systolic function with ejection fraction 60%, postero-basal hypokinesis, no significant mitral regurgitation and mild elevation of left ventricular end-diastolic pressure on [facility] of 08/04/17, continue to monitor closely Paroxysmal atrial fib/flutter, currently in sinus rhythm, had one episode of atrial fibrillation after her myocardial infarction, has been maintaining sinus rhythm, I will keep monitoring her in telemetry and keep her off Eliquis for now TSH 0.26 on lab of - indicative of hyperthyroidism Elevated transaminases likely d/t STEMI, continue to monitor Thank you for your consultation. Please call me if you have any questions. Anders Ryan MD, FACP, FACC, FSCAI, FHRS, CCDS Interventional Cardiology Cardiac Electrophysiology Vascular Medicine and Endovascular Interventions Ole RYAN MD Aug 16, 2017 1:57 pm
[2017-08-16 16:22] VITALS: BP 100/58
[2017-08-16 20:00] VITALS: BP 122/61
[2017-08-16] MEDS: ATORVASTATIN 80 MG (LIPITOR) TABLET PO SCH (20:47)
[2017-08-16] MEDS: MENTHOL/ZINC OXIDE (CALMOSEPTINE) 113 GM TUBE TOP SCH (20:48)
[2017-08-17] VITALS: BP 94/60
[2017-08-17 04:00] VITALS: BP 100/57
[2017-08-17 05:47] LABS: BASOPHILS # (AUTO) 0.1 10^3/uL (0.0-0.1); BASOPHILS % (AUTO) 1 % (0-10); EOSINOPHILS # (AUTO) 0.4 10^3/uL (0.0-0.3); EOSINOPHILS % (AUTO) 5 % (0-10); HEMATOCRIT 32 % (35-52); HEMOGLOBIN 10.5 G/DL (11.5-16.0); LYMPHOCYTES # (AUTO) 1.4 X 10^3 (1.0-4.0); LYMPHOCYTES % (AUTO) 20 % (12-44); MEAN CORPUSCULAR HEMOGLOBIN 32 PG (25-34); MEAN CORPUSCULAR HGB CONC 33 G/DL (32-36); MEAN CORPUSCULAR VOLUME 95 FL (80-99); MEAN PLATELET VOLUME 11.1 FL (7.4-10.4); MONOCYTES # (AUTO) 0.6 X 10^3 (0.0-1.0); MONOCYTES % (AUTO) 8 % (0-12); NEUTROPHILS # (AUTO) 4.7 X 10^3 (1.8-7.8); NEUTROPHILS % (AUTO) 66 % (42-75); PLATELET COUNT 280 10^3/uL (130-400); RED BLOOD COUNT 3.31 10^6/uL (4.35-5.85); RED CELL DISTRIBUTION WIDTH 12.1 % (10.0-14.5)
[2017-08-17 06:14] LABS: ALANINE AMINOTRANSFERASE 20 U/L (0-55); ALBUMIN 3.4 GM/DL (3.2-4.5); ALKALINE PHOSPHATASE 66 U/L (40-136); BUN/CREATININE RATIO 24; CALCIUM 9.1 MG/DL (8.5-10.1); CARBON DIOXIDE 26 MMOL/L (21-32); CHLORIDE 101 MMOL/L (98-107); CREATININE SERUM 0.67 MG/DL (0.60-1.30); GFR ESTIMATED > 60; GLUCOSE 107 MG/DL (70-105); POTASSIUM 4.2 MMOL/L (3.6-5.0); SODIUM 137 MMOL/L (135-145); TOTAL PROTEIN 7.5 GM/DL (6.4-8.2)
[2017-08-17] MEDS: PANTOPRAZOLE 40 MG (PROTONIX) TAB PO SCH (06:42)
[2017-08-17] MEDS: FUROSEMIDE 40 MG/4 ML INJ (LASIX) IVP SCH ×2 (06:42→16:28)
[2017-08-17] MEDS: LACTOBACILLUS Acidoph/Bulgar (LACTINEX/FLORANEX) TAB PO SCH ×3 (06:42→16:23)
[2017-08-17] MEDS: CHOLESTYRAMINE 4 GM (QUESTRAN LITE, PREVALITE) PKT PO SCH ×4 (06:42→20:43)
[2017-08-17 08:10] VITALS: BP 91/56
[2017-08-17] MEDS: ASPIRIN E.C. 81 MG (ECOTRIN) TAB PO SCH (09:31)
[2017-08-17] MEDS: meTOprolol TARTRATE 25 MG (LOPRESSOR) TABLET PO SCH ×2 (09:31→20:42)
[2017-08-17] MEDS: HYDROCORTISONE 2.5% CREAM (ANUSOL-HC) 30 GM TOP SCH ×2 (09:31→20:43)
[2017-08-17] MEDS: CLOPIDOGREL 75 MG (PLAVIX) TABLET PO SCH (09:31)
[2017-08-17] MEDS: MENTHOL/ZINC OXIDE (CALMOSEPTINE) 113 GM TUBE TOP SCH ×2 (09:32→20:44)
--- NOTE | 2017-08-17 10:32 | Cardiology Progress Note ---
Cardiology SOAP Progress Note Subjective: slow improvement Objective: I&O/Vital Signs Vital Sign - Last 12Hours 08/17/17 08/17/17 08/17/17 08/17/17 11:51 13:00 16:40 19:00 Temp 99.1 99.4 Pulse 85 83 95 80 Resp 20 20 B/P (MAP) 93/50 (64) 104/58 (73) Pulse Ox 97 96 O2 Delivery Nasal Cannula Nasal Cannula O2 Flow Rate 3.00 3.00 08/17/17 08/17/17 20:00 20:14 Temp 98.8 Pulse 89 Resp 20 B/P (MAP) 104/55 (71) Pulse Ox 100 O2 Delivery Nasal Cannula Nasal Cannula O2 Flow Rate 3.00 3.00 Intake and Output 08/17/17 00:00 Intake Total 730 ml Balance 730 ml Weight (Pounds): 133 Weight (Ounces): 6.0 Weight (Calculated Kilograms): 60.435911 Constitutional: No appears stated age, AAO x 3, No apparent distress, No PERRL , No well-developed, No well-nourished, No other Respiratory: No accessory muscle use, No respiratory distress, No chest tender , No chest expansion is symmetric, chest is bilaterally symmetric, No lungs clear to percussion, lungs clear to auscultation, No crackles, No rhonchi, No rales, No stridor, No wheezing, No pleural rub, No other Cardiovascular: regular rate-rhythm, No irregularly irregular, No extra beats, No parasternal heave is noted, No JVD, No edema, No bradycardia, No tachycardia , No point of maximal impulse, No cardiac thrills are palpable, S1 and S2, No gallop/S3, No gallop/S4, No diastolic murmur, No systolic murmur, No friction rub, No click, No other Gastrointestional: No tender, No soft, No round, No distended, No pulsatile mass, No organomegaly, No guarding, No rebound, No tenderness, No hernia, No mass, No audible bowel sounds, No abnormal bowel sounds, No abdominal bruits, No spleenomegaly, No other Extremities: No normal range of motion, No non-tender, No normal inspection, No pedal edema, No calf tenderness, No normal capillary refill, No pelvis stable , No calf tenderness, No inflammation, No pedal edema, No slow capillary refill , No swelling, No other, No abrasion, No clubbing, No cyanosis, No ecchymosis, No laceration, No no lower extremity edema bilateral, No significant edema, No tenderness, No wound Neurologic/Psychiatric: No manager media relations II-XII nml as tested, No no motor/sensory deficits, alert, normal mood/affect, oriented x 3, No abnormal cerebellar tests , No abnormal manager media relations II-XII, No abnormal gait, No aphasia, No EOM palsy, No facial droop, No motor weakness, No sensory deficit, No depressed affect, No disoriented x 3, No other, No grossly intact, No power is 5/5 both on sides Skin: No normal color, No warm/dry, No cyanosis, No cool, No diaphoresis, No damp, No ecchymosis, No jaundice, No mottled, No pallor, No rash, No tattoos/ piercings, No ulcerations, No rash on exposed areas, No ulcerations on exposed areas, No other Results/Procedures: Labs Laboratory Tests 08/17/17 05:28: White Blood Count 7.0, Red Blood Count 3.31L, Hemoglobin 10.5L, Hematocrit 32L, Mean Corpuscular Volume 95, Mean Corpuscular Hemoglobin 32, Mean Corpuscular Hemoglobin Concent 33, Red Cell Distribution Width 12.1, Platelet Count 280, Mean Platelet Volume 11.1H, Neutrophils (%) (Auto) 66, Lymphocytes (%) (Auto) 20 , Monocytes (%) (Auto) 8, Eosinophils (%) (Auto) 5, Basophils (%) (Auto) 1, Neutrophils # (Auto) 4.7, Lymphocytes # (Auto) 1.4, Monocytes # (Auto) 0.6, Eosinophils # (Auto) 0.4H, Basophils # (Auto) 0.1, Sodium Level 137, Potassium Level 4.2, Chloride Level 101, Carbon Dioxide Level 26, Anion Gap 10, Blood Urea Nitrogen 16, Creatinine 0.67, Estimat Glomerular Filtration Rate > 60, BUN/ Creatinine Ratio 24, Glucose Level 107H, Calcium Level 9.1, Total Bilirubin 1.0 , Aspartate Amino Transf (AST/SGOT) 24, Alanine Aminotransferase (ALT/SGPT) 20, Alkaline Phosphatase 66, Total Protein 7.5, Albumin 3.4 Microbiology 08/13/17 Blood Culture - Preliminary, Resulted No growth A/P: Assessment/Dx: Acute ST elevation myocardial infarction, resolved. Coronary artery disease Acute respiratory failure Hypotension Plan: Dr Schumacher to take over care on 08/18/2017. Coronary artery disease status post acute ST elevation myocardial infarction involving the inferior wall associated with RV infarct, cardiac catheterization was carried out by Dr. Schumacher, successful intervention on the right coronary artery with occlusion of the right ventricular branch. Feeling better at this time. Aspirin, Plavix, statin, beta felton. Anemia, stool for occult blood is negative. H&H are better. Continue to monitor Congestive heart failure, acute left ventricular diastolic dysfunction with right sided heart failure, ischemic cardiomyopathy, borderline hypotensive, add parameters for the beta blockers to hold for systolic blood pressure less than 100, cannot start BRETT inhibitor and/or ARB yet due to hypotension - systolic BP still 100mmhg today therefore I did start BRETT inhibitors. Hypotension - likely d/t RV infarct, better at this time. Continue to monitor Shortness of breath, bilateral pleural effusion, pulmonary edema and questionable pneumonia, receiving diuretics and antibiotics, slow improvement. Coronary artery disease, status post cardiac catheterization done by Dr. Schumacher on 08/04/17: Mid vessel occlusion of the right coronary artery treated with overlapping stents (Alpine Xience 2.75 x 28 mm the distal part of which extends slightly into the right ventricular branch) and Alpine Xience 2.75 x 12 mm stent that was placed through the expanded struts of the previous stent and overlaps the stent to some degree. There is no significant residual stenosis in the right coronary artery and the flow was normal, but right ventricular branch was lost during the procedure due to infarct-related thrombus. A 90% to 95% stenosis of the proximal left circumflex artery, which was treated with stenting with Alpine Xience 2.25 x 12 mm stent with reduction of stenosis to 0% residual. The left anterior descending artery has diffuse [id number] disease Thrombocytopenia, improved, unlikely to be HIT, followed and managed by Dr. Diaz Well preserved global left ventricular systolic function with ejection fraction 60%, postero-basal hypokinesis, no significant mitral regurgitation and mild elevation of left ventricular end-diastolic pressure on [facility] of 08/04/17, continue to monitor closely Paroxysmal atrial fib/flutter, currently in sinus rhythm, had one episode of atrial fibrillation after her myocardial infarction, has been maintaining sinus rhythm, I will keep monitoring her in telemetry and keep her off Eliquis for now TSH 0.26 on lab of - indicative of hyperthyroidism Elevated transaminases likely d/t STEMI, continue to monitor Thank you for your consultation. Please call me if you have any questions. Anders Ryan MD, FACP, FACC, FSCAI, FHRS, CCDS Interventional Cardiology Cardiac Electrophysiology Vascular Medicine and Endovascular Interventions Ole RYAN MD Aug 17, 2017 10:32 am
[2017-08-17 11:51] VITALS: BP 93/50
--- NOTE | 2017-08-17 13:05 | Progress Note-Standard ---
Standard Progress Note Progress Notes/Assess & Plan Date Seen 08/17/17 Time Seen by Provider: 11:30 Assess & Plan/Chief Complaint Patient has weaned off oxygen Breathing well Loose stools much improved Discontinued antibiotic yesterday of Zosyn Plan is for inpatient rehabilitation tomorrow at bedside No fever, vital signs stable, pleasant, improved, frail, debilitated, pleasant and cooperative Regular rate and rhythm, clear to auscultation bilaterally except for crackles in the bases no essential change since last assessed Trace edema lower extremities Laboratory Tests 08/17/17 05:28 Assessment: Severe debility requiring SB status until strong enough for IRU Acute myocardial infarction status post cardiac catheterization with intervention Volume overload with pulmonary edema on CT scan chest requiring aggressive diuresis Hypoxia stable on room air today Episode of atrial fib captured on telemetry in ICU no further episodes Infiltrate on chest x-ray with pulmonary edema on CT scan Dr Quan ordered IV Lasix but maintained on Zosyn empirically but DC yesterday Anemia of critical illness and phlebotomy since hospitalized Thrombocytopenia w/o DIC evidence per Hematology s/p elevated Lactic acid likely due to episode of hypotension the day before now resolved Loose stools started Lactinex and Questran and Imodium now much improved Severe Hypokalemia due to diuresis replacing per protocol Plan: Maintain therapy and SB status then move to IRU Friday, tomorrow DC Zosyn yesterday after no fever noted and labs normal and no evidence of acute issue Labs Laboratory Tests 08/17/17 05:28 ZHANNA CARMONA DO Aug 17, 2017 13:05
[2017-08-17 16:40] VITALS: BP 104/58
[2017-08-17 20:14] VITALS: BP 104/55
[2017-08-17] MEDS: ATORVASTATIN 80 MG (LIPITOR) TABLET PO SCH (20:42)
[2017-08-18 00:15] VITALS: BP 107/59
[2017-08-18 04:10] VITALS: BP 93/55
[2017-08-18] MEDS: PANTOPRAZOLE 40 MG (PROTONIX) TAB PO SCH (05:44)
[2017-08-18] MEDS: LACTOBACILLUS Acidoph/Bulgar (LACTINEX/FLORANEX) TAB PO SCH ×2 (05:44→09:55)
[2017-08-18] MEDS: FUROSEMIDE 40 MG/4 ML INJ (LASIX) IVP SCH (05:44)
[2017-08-18] MEDS: CHOLESTYRAMINE 4 GM (QUESTRAN LITE, PREVALITE) PKT PO SCH (05:44)
--- NOTE | 2017-08-18 07:50 | Pulmonary Progress Note ---
Subjective Time Seen by Provider: 07:49 Subjective/Events-last exam pt appears to be doing much better Exam Exam Vital Signs Date Time Temp Pulse Resp B/P (MAP) Pulse Ox O2 Delivery O2 Flow Rate FiO2 08/18/17 04:10 99.0 80 20 93/55 (68) 94 Nasal Cannula 3.00 08/18/17 01:00 74 08/18/17 00:15 99.0 85 18 107/59 (75) 95 Nasal Cannula 3.00 3.00 08/17/17 20:14 98.8 89 20 104/55 (71) 100 Nasal Cannula 3.00 08/17/17 20:00 Nasal Cannula 3.00 08/17/17 19:00 80 08/17/17 16:40 99.4 95 20 104/58 (73) 96 Nasal Cannula 3.00 08/17/17 13:00 83 08/17/17 11:51 99.1 85 20 93/50 (64) 97 Nasal Cannula 3.00 08/17/17 08:10 99.0 99 20 91/56 (68) 97 Nasal Cannula 3.00 08/17/17 08:00 97 Nasal Cannula 3.00 I & O 08/18/17 07:00 Intake Total 970 ml Output Total 750 ml Balance 220 ml General Appearance: No Apparent Distress, WD/WN HEENT: Normal ENT Inspection Neck: Full Range of Motion Respiratory: No Accessory Muscle Use, No Respiratory Distress, Decreased Breath Sounds Cardiovascular: Regular Rate, Rhythm, No Murmur Gastrointestinal: non tender, soft Results Lab Laboratory Tests 08/17/17 05:28 Assessment/Plan Assessment/Plan pulmonary edema -Lasix -Cultures are negative -Influenza is negative -repeat CXR pending Pneumonia - improving -Abx now D/C'd STEMI post cath -plavix CAD Afib/flutter 232 JUANA WILLS DO Aug 18, 2017 07:50
--- NOTE | 2017-08-18 07:53 | Progress Note (SOAP) ---
Subjective Time Seen by Provider: 07:50 Subjective/Events-last exam patient states her blood pressure is still low. Patient feels good and other times not is good. on 3 L of nasal oxygen patient off Vapotherm. Patient feels weak Objective Exam Vital Signs Date Time Temp Pulse Resp B/P (MAP) Pulse Ox O2 Delivery O2 Flow Rate FiO2 08/18/17 04:10 99.0 80 20 93/55 (68) 94 Nasal Cannula 3.00 08/18/17 01:00 74 08/18/17 00:15 99.0 85 18 107/59 (75) 95 Nasal Cannula 3.00 3.00 08/17/17 20:14 98.8 89 20 104/55 (71) 100 Nasal Cannula 3.00 08/17/17 20:00 Nasal Cannula 3.00 08/17/17 19:00 80 08/17/17 16:40 99.4 95 20 104/58 (73) 96 Nasal Cannula 3.00 08/17/17 13:00 83 08/17/17 11:51 99.1 85 20 93/50 (64) 97 Nasal Cannula 3.00 08/17/17 08:10 99.0 99 20 91/56 (68) 97 Nasal Cannula 3.00 08/17/17 08:00 97 Nasal Cannula 3.00 I & O 08/18/17 07:00 Intake Total 970 ml Output Total 750 ml Balance 220 ml Capillary Refill : General Appearance: No Apparent Distress, Thin HEENT: Normal ENT Inspection Neck: Normal Inspection Respiratory: No Accessory Muscle Use, No Respiratory Distress Cardiovascular: Regular Rate, Rhythm, No Murmur Results Lab Microbiology 08/13/17 Blood Culture - Preliminary, Resulted No growth Assessment/Plan Assessment/Plan Assess & Plan/Chief Complaint Acute ST elevated AL resolved. Coronary artery disease. Hypotension now. Acute respiratory failure. Patient still on Vapotherm. Patient still a work in progress. . 08/15/17. Acute ST elevated AL. Coronary artery disease. Hypotension. Acute respiratory failure. To be taken off Vapotherm today. Patient still has some shortness of breath with exertion.. . 08/18/17. acute ST elevated AL. Coronary artery disease. Hypotension. Acute respiratory failure. Patient to go to rehabilitation today Clinical Quality Measures DVT/VTE Risk/Contraindication: Risk Factor Score Per Nursin ABRAM BRITT DO Aug 18, 2017 07:53
[2017-08-18 08:00] VITALS: BP 94/51
--- NOTE | 2017-08-18 08:37 | Progress Note-Cardiology ---
Cardiology SOAP Progress Note Subjective: Sitting up in a chair at the bedside eating morning meal. States she feels she is getting stronger. She continues to have some SOB, but feels this is slowly getting better. No c/o CP, palpitations, syncope or near syncope. No c/o LE edema. Objective: I&O/Vital Signs Vital Sign - Last 12Hours 08/18/17 08/18/17 08/18/17 08/18/17 04:10 07:00 08:00 08:00 Temp 99.0 98.4 Pulse 80 84 86 Resp 20 16 B/P (MAP) 93/55 (68) 94/51 (65) Pulse Ox 94 93 O2 Delivery Nasal Cannula Nasal Cannula Nasal Cannula O2 Flow Rate 3.00 3.00 3.00 Intake and Output 08/18/17 00:00 Intake Total 820 ml Output Total 750 ml Balance 70 ml Weight (Pounds): 133 Weight (Ounces): 6.0 Weight (Calculated Kilograms): [id number] Constitutional: AAO x 3 Respiratory: chest is bilaterally symmetric, lungs clear to auscultation, other (diminished bases bilat) Cardiovascular: regular rate-rhythm, S1 and S2 Gastrointestional: audible bowel sounds Extremities: no lower extremity edema bilateral Neurologic/Psychiatric: grossly intact Skin: No ulcerations, No rash on exposed areas Results/Procedures: Labs Microbiology 08/13/17 Blood Culture - Preliminary, Resulted No growth A/P: Assessment: Status post acute ST elevation myocardial infarction involving the inferior wall associated with RV infarct. Coronary artery disease, status post cardiac catheterization done by Dr. Schumacher on 08/04/17: Mid vessel occlusion of the right coronary artery treated with overlapping stents (Alpine Xience 2.75 x 28 mm the distal part of which extends slightly into the right ventricular branch) and Alpine Xience 2.75 x 12 mm stent that was placed through the expanded struts of the previous stent and overlaps the previous stent to some degree. There is no significant residual stenosis in the right coronary artery and the flow was normal, but right ventricular branch was lost during the procedure due to infarct-related thrombus. A 90% to 95% stenosis of the proximal left circumflex artery, which was treated with stenting with Alpine Xience 2.25 x 12 mm stent with reduction of stenosis to 0% residual. The left anterior descending artery has diffuse mild -to-moderate disease Well preserved global left ventricular systolic function with ejection fraction 60%, postero-basal hypokinesis, no significant mitral regurgitation and mild elevation of left ventricular end-diastolic pressure on [facility] of 08/04/17 Congestive heart failure, acute left ventricular diastolic dysfunction with right-sided heart failure Echo of 08/04/17: LVEF 55-60%,mild AI, grade I diastolic dysfunction of LV, PASP WNL Paroxysmal atrial fib/flutter, currently in sinus rhythm, had episodes of atrial fibrillation/flutter within 48 hours her myocardial infarction, has since been maintaining sinus rhythm - OAC has been withheld Anemia, stool for occult blood is negative. H&H are better Hypotension - likely d/t RV infarct, improved Shortness of breath, bilateral pleural effusion, pulmonary edema and questionable pneumonia, receiving diuretics and antibiotics, slow improvement. Thrombocytopenia, improved, unlikely to be HIT, followed and managed by Dr. Diaz TSH 0.26 on lab of - indicative of hyperthyroidism Elevated transaminases likely d/t STEMI, continue to monitor Plan: Chart has been reviewed Continue current regimen Increase activity Monitor lab closely CXR pending Consider changing IV Lasix to oral starting tomorrow Continue ASA and Plavix She did have one episode of a-fib documented post CA for which OAC was initially started, however this was stopped d/t anemia and thrombocytopenia of undetermined etiology. At this time we will continue to hold off. Keep on tele. Continue BB Physician Assessment Physician Assessment Notes gen malaise and weakness and poor stamina. Does not report cp or palp or syncope or shortness of breath at rest Lungs: good bilat air entry Cor: reg Ext: no c/c/e A&R * As documented in our note above that I updated (italics) at the time of this writing * Due to multiple comorbidities, management has been complex and has led to this long hospitalization * I had a detailed discussion with her and answered her questions * Continue efforts at PT/OT and optimization of meds ABHISHEK BANDA Aug 18, 2017 08:37 [address] [address] [facility] Aug 18, 2017 14:46
--- NOTE | 2017-08-18 08:52 | Diagnostic Imaging Report ---
INDICATION: Followup pneumonia. TIME OF EXAMINATION: 08:36 a.m. COMPARISON: Correlation is made with prior study from 08/15/2017. FINDINGS: Bilateral infiltrates persist and show no significant change since examination three days earlier. Right hemidiaphragm remains elevated. The heart size is stable. No effusion or pneumothorax is seen. IMPRESSION: Stable bilateral pulmonary infiltrates when compared with examination three days earlier. Dictated by: Dictated on workstation # [id number]
[2017-08-18] MEDS: meTOprolol TARTRATE 25 MG (LOPRESSOR) TABLET PO SCH (09:00)
[2017-08-18] MEDS: ASPIRIN E.C. 81 MG (ECOTRIN) TAB PO SCH (09:50)
[2017-08-18] MEDS: CLOPIDOGREL 75 MG (PLAVIX) TABLET PO SCH (09:50)
[2017-08-18] MEDS: HYDROCORTISONE 2.5% CREAM (ANUSOL-HC) 30 GM TOP SCH (09:51)
[2017-08-18] MEDS: MENTHOL/ZINC OXIDE (CALMOSEPTINE) 113 GM TUBE TOP SCH (09:53)
[2017-08-18] MEDS ORDERED: CHOL4PAC3 PO (10:23)
[2017-08-18] MEDS ORDERED: CLOP75TA28 PO (10:23)
[2017-08-18] MEDS ORDERED: ACID1TAB PO (10:23)
[2017-08-18] MEDS ORDERED: ASPI-983 PO (10:23)
[2017-08-18] MEDS ORDERED: FAMO20TA5 PO (10:23)
[2017-08-18] MEDS ORDERED: ATOR80TA76 PO (10:23)
[2017-08-18] MEDS ORDERED: ACET325T49 PO (10:23)
[2017-08-18] MEDS ORDERED: METO-333 PO (10:23)
[2017-08-18] MEDS ORDERED: HYDR30CR69 TOP (10:23)
[2017-08-18] MEDS ORDERED: MENT71OI TOP (10:23)
[2017-08-18] MEDS ORDERED: LOPE2CAP PO (10:23)
--- NOTE | 2017-08-18 11:06 | Therapy Team Discharge Summary ---
Therapy Discharge Summary Discharge Recommendations Date of Discharge Therapy D/C Recommendations: Home w/ Family Support, Occupational Therapy Home Care Physical Therapy This patient was seen on [facility] for skilled PT intervnetion post PA. Prior to hospital stay, pt was indep with all functional mobility and self care. Upon admission to [facility], she was SBA with tranfers and only able to ambulate 10 ft with FWW with min assist. She had limited functional activity tolerance and was on high concentration oxygen. Treatment has consisted of strength, mobility , safety, functional activity tolerance and progression of gait. She is making progress but remains at A with gait and transfers walking only short distances before becoming fatigued. She is to transfer to ARU for continued aggressive skilled PT. Goals have not been met but will continue to progress on ARU. DC PT from [facility] at this time. Occupational Therapy Decreased Activ Tolerance, Impaired I ADL's, Impaired Self-Care Skills PT Fpc Goals Graduate Rn Goals PT Graduate Rn Goals Time Frame: Aug 20, 2017 Transfers (B,C,W/C) (FIM): 6 Sit to Lying (QC): 6 Lying-Sitting on Side/Bed(QC): 6 Sit to Stand (QC): 6 Rollin Chair/Kic-vg-Pwxrv Xfer(QC): 6 Walk 50ft with 2 Turns (QC): 6 Walk 150 ft (QC): 6 Gait Level of Assist: 6 Gait Assistive Device: Cane Single Point goals remain unmet at this time; she is SBA with functional transfers and gait. OT Graduate Rn Goals Graduate Rn Goals Time Frame: Aug 27, 2017 Eating (FIM): 6 Eating (QC): 6 Groomin Oral Hygiene (QC): 6 Bathing(FIM): 6 Upper Body Dressing(FIM): 6 Lower Body Dressing(FIM): 6 Toileting(FIM): 6 Toileting Hygiene (QC): 6 Transfers (B,C,W/C) (FIM): 6 Toilet/Commode Transfer(FIM): 6 Toilet/Commode Transfer (QC): 6 Shower Transfer(FIM): 5 Additional Goals: 1-Demonstrate ADL Tasks, 2-Verbalize Understanding, 3- ImproveStrength/Herb 1=Demonstrate adherence to instructed precautions during ADL tasks. 2=Patient will verbalize/demonstrate understanding of assistive devices/ modifications for ADL. 3=Patient will improve strength/tolerance for activity to enable patient to perform ADL's. PAOLA OLVERA PT Aug 18, 2017 11:06
[2017-08-19] MEDS ORDERED: PRAV40TA2 PO (09:24)
--- NOTE | 2017-08-19 14:11 | Therapy Team Discharge Summary ---
Therapy Discharge Summary Discharge Recommendations Date of Discharge Aug 18, 2017 at 10:55 Therapy D/C Recommendations: Home w/ Family Support, Occupational Therapy Home Care Occupational Therapy Pt.has been seen by occupational therapy to increase overall strength and independence. Pt. has not met goals due to transferring to acute rehab. Pt. has made substantial progress in all areas, but has not met goals of Mod I with all tasks. Pt. to work on continued ADL training in rehab setting to increase ability to independently complete all tasks. Decreased Activ Tolerance, Impaired I ADL's, Impaired Self-Care Skills PT Paper Latcher Goals Senior Living Goals PT Senior Living Goals Time Frame: Aug 20, 2017 Transfers (B,C,W/C) (FIM): 6 Sit to Lying (QC): 6 Lying-Sitting on Side/Bed(QC): 6 Sit to Stand (QC): 6 Rollin Chair/Uzt-mi-Sutnj Xfer(QC): 6 Walk 50ft with 2 Turns (QC): 6 Walk 150 ft (QC): 6 Gait Level of Assist: 6 Gait Assistive Device: Cane Single Point OT Senior Living Goals Senior Living Goals Time Frame: Aug 27, 2017 Eating (FIM): 6 (met) Eating (QC): 6 (met) Groomin (not met) Oral Hygiene (QC): 6 (not met) Bathing(FIM): 6 (not met) Upper Body Dressing(FIM): 6 (not met) Lower Body Dressing(FIM): 6 (not met) Toileting(FIM): 6 (not met) Toileting Hygiene (QC): 6 (not met) Transfers (B,C,W/C) (FIM): 6 (not met) Toilet/Commode Transfer(FIM): 6 (not met) Toilet/Commode Transfer (QC): 6 (not met) Shower Transfer(FIM): 5 (met) Additional Goals: 1-Demonstrate ADL Tasks, 2-Verbalize Understanding, 3- ImproveStrength/Herb 1=Demonstrate adherence to instructed precautions during ADL tasks. 2=Patient will verbalize/demonstrate understanding of assistive devices/ modifications for ADL. 3=Patient will improve strength/tolerance for activity to enable patient to perform ADL's. MORGAN DIAZ OT Aug 19, 2017 14:11
== END 2017-08-18 10:55 | DRG 280 ==
LOC: 4TH 08:24
PROVIDERS: ADMIT Family Medicine; ATTEND Family Medicine
DX: I21.19 ST elevation (STEMI) myocardial infarction involving other coronary artery of inferior wall (principal); I25.110 Atherosclerotic heart disease of native coronary artery with unstable angina pectoris; J18.9 Pneumonia, unspecified organism; J96.01 Acute respiratory failure with hypoxia; I11.0 Hypertensive heart disease with heart failure; I50.31 Acute diastolic (congestive) heart failure; I49.01 Ventricular fibrillation; I46.2 Cardiac arrest due to underlying cardiac condition; I48.92 Unspecified atrial flutter; R04.2 Hemoptysis; N17.9 Acute kidney failure, unspecified; I95.9 Hypotension, unspecified; I48.0 Paroxysmal atrial fibrillation; I49.3 Ventricular premature depolarization; I49.1 Atrial premature depolarization; E78.00 Pure hypercholesterolemia, unspecified; E03.9 Hypothyroidism, unspecified; M19.91 Primary osteoarthritis, unspecified site; D63.8 Anemia in other chronic diseases classified elsewhere; D69.6 Thrombocytopenia, unspecified; E05.90 Thyrotoxicosis, unspecified without thyrotoxic crisis or storm; Z82.49 Family history of ischemic heart disease and other diseases of the circulatory system; E87.6 Hypokalemia; E83.39 Other disorders of phosphorus metabolism
CPT/HCPCS: 36415; 71046; 80048; 80053; 81000; 85025; 85027; 87040; 94760

== ENCOUNTER 2017-08-18 10:03 | Inpatient (IN) | payer MEDICARE, OTHER ==
[~2017-08-18] VITALS: Ht 152.4 cm; Wt 58.1 kg
[2017-08-18] MEDS ORDERED: CLOP75TA28 PO (10:23)
[2017-08-18] MEDS ORDERED: FAMO20TA5 PO (10:23)
[2017-08-18] MEDS ORDERED: CHOL4PAC3 PO (10:23)
[2017-08-18] MEDS ORDERED: LOPE2CAP PO (10:23)
[2017-08-18] MEDS ORDERED: ASPI-983 PO (10:23)
[2017-08-18] MEDS ORDERED: HYDR30CR69 TOP (10:23)
[2017-08-18] MEDS ORDERED: ATOR80TA76 PO (10:23)
[2017-08-18] MEDS ORDERED: METO-333 PO (10:23)
[2017-08-18] MEDS ORDERED: ACET325T49 PO (10:23)
[2017-08-18] MEDS ORDERED: ACID1TAB PO (10:23)
[2017-08-18] MEDS ORDERED: MENT71OI TOP (10:23)
[2017-08-18 11:25] VITALS: BP 99/65
--- NOTE | 2017-08-18 11:53 | Physical Therapy Evaluation ---
PT Evaluation-General Medical Diagnosis Admission Date Aug 18, 2017 at 11:23 Medical Diagnosis: [place] Onset Date: Aug 03, 2017 Therapy Diagnosis Therapy Diagnosis: weakness/debility Height/Weight Height (Feet): 5 Height (Inches): 0.00 Weight (Pounds): 133 Weight (Ounces): 6.0 Precautions Precautions/Isolations: Standard Precautions Weight Bear Status Right Lower Extremity: Right Full Weight Bearing Left Lower Extremity: Left Full Weight Bearing Referral Physician: Pradip Reason for Referral: Evaluation/Treatment Medical History Pertinent Medical History: CAD, HTN, Hypothroidism Additional Medical History decrease SAO2 with activity/monitor and is on 3L O2 NC Current History transfer to ARU Reviewed History: Yes Social History Home: Single Level Current Living Status: Spouse Entry Into Home: Stairs Without Railing PT Steps Into Home: 2 Prior/Core FIM Prior Level of Function Functional [place] Measure 0=Not Assessed/NA 4=Minimal Assistance 1=Total Assistance 5=Supervision or Setup 2=Maximal Assistance 6=Modified [place] 3=Moderate Assistance 7=Complete [place] Bed Mobility: 7 Transfers (B,C,W/C) (FIM): 7 Gait: 7 Locomotion: 7 PT Evaluation-Current Subjective Patient agrees to PT. Continues to c/o SOB with minimal activity. Pain Numeric Pain Scale: 0-No Pain Location: No Pain Reported Objective Patient Orientation: Normal For Age Problem Solving: Good Attachments: Oxygen (3L HF NC) ROM/Strength ROM Lower Extremities bilateral LE WNL Strenght Lower Extremities right knee flexion/extension 3+/5; hip flexion 3+/5; DF/PF 4/5 left knee flexion/extension 3+/5; hip flexion 3+/5; DF/PF 4/5 Integumentary/Posture Integumentary refer to nursing notes Bowel Incontinence: No Bladder Incontinence: No Posture WFL Neuromuscular (Tone, Coordination, Reflexes) grossly intact Sensory Vision: Functional Hearing: Functional Sensation Right Lower Extremit: Intact Sensation Left Lower Extremity: Intact Transfers Functional [place] Measure 0=Not Assessed/NA 4=Minimal Assistance 1=Total Assistance 5=Supervision or Setup 2=Maximal Assistance 6=Modified [place] 3=Moderate Assistance 7=Complete IndependenceIRFPAI Quality Coding Scale 6 Independent with activity with or without an assistive device 5 Patient requires set up or clean up by helper. Patient completes activity by themselves 4 Supervision or touching assist (CGA). [place] provide cues , steadying assist 3 The helper provides less than half the effort to complete the activity 2 The helper provides more than half the effort to complete the activity 1 Dependent. The helper does all the effort to complete an activity 7 Patient refused to complete or attempt activity 9 The patient did not perform the activity before the current illness or injury 88 Not attempted due to Medical conditions or safety concerns Transfers (B, C, W/C) (FIM): 5 Scootin Rollin Roll Left to Right (QC): 5 Supine to/from Sit: 5 Sit to/from Stand: 5 Sit to Lying (QC): 5 Lying to Sitting/Side of Bed(Q: 5 Sit to Stand (QC): 5 Chair/Kgm-eq-Isusg Xfer(QC): 5 Car Transfer (QC): 5 Patient is SBA and requires time to compete all functional tasks due to decreased pulmonary function Gait Does the Patient Walk?: Yes Mode of Locomotion: Walk Anticipated Mode of Locomotion: Walk Gait (FIM): 2 Distance (FIM): 9=663-73 ft Walk 10 feet (QC): 5 Walk 50 ft with 2 Turns(QC): 5 Walking 10ft/uneven surface-QC: 5 Distance: 100' x 5 Gait Level of Assist: 5 Gait Assistive Device: FWW Comments/Gait Description slow, steady, functional gait sequence with 3 standing recovery periods due to SOA with quick recovery Stairs Stairs (FIM): 5 #of Steps: 8 Level of Assist: 5 1 Step (curb) (QC): 5 4 Steps (QC): 5 12 Steps (QC): 88 Balance Sitting Static: Normal Sitting Dynamic: Normal Standing Static: Normal Standing Dynamic: Normal Assessment/Needs 71 y.o. female, with decrease pulmonary function, will benefit from skilled PT to address functional strength and mobility to improve pulmonary function to return to home safely with spouse at maximum LOF. Rehab Potential: Good PT [facility] Goals Recycling Attendant Goals PT [facility] Goals Time Frame: Sep 12, 2017 Transfers (B,C,W/C) (FIM): 6 Sit to Lying (QC): 6 Lying-Sitting on Side/Bed(QC): 6 Sit to Stand (QC): 6 Rollin Roll Left to Right (QC): 6 Chair/Ymf-zt-Mnkou Xfer(QC): 6 Car Transfer (QC): 6 Gait (FIM): 7 Gait distance (FIM): 3=150 ft Distance: 250' Walk 10 feet (QC): 6 Walk 10ft-Uneven Surface(QC): 6 Walk 50ft with 2 Turns (QC): 6 Walk 150 ft (QC): 6 Gait Level of Assist: 7 Gait Assistive Device: None, Cane Single Point Stairs (FIM): 6 # of Steps: 12 1 Step (curb) (QC): 6 4 Steps (QC): 6 12 Steps (QC): 6 Stairs Level Of Assist: 6 Picking up an Object (QC): 6 PT Plan Problem List Problem List: Activity Tolerance, Functional Strength Treatment/Plan Treatment Plan: Continue Plan of Care Treatment Plan: Bed Mobility, Education, Functional Activity Herb, Functional Strength, Group Therapy, Gait, Safety, Therapeutic Exercise, Transfers Treatment Duration: Sep 12, 2017 Frequency: At least 5 of 7 days/Wk (IRF) Estimated Hrs Per Day: 1.5 hours per day Patient and/or Family Agrees t: Yes Safety Risks/Education Patient Education: Safety Issues Teaching Methods: Discussion Response to Teaching: Verbalize Understanding Discharge Recommendations Therapy D/C Recommendations: Home w/ Family Support Time/GCodes Time In: 1050 Time Out: 1130 Total Billed Treatment Time: 40 Total Billed Treatment 1 visit EVModC 20 min GT 20 min SOFIE SIMMONS PT Aug 18, 2017 11:53
--- NOTE | 2017-08-18 13:12 | Occupational Therapy Eval ---
OT Evaluation-General/PLF Medical Diagnosis Admission Date Aug 18, 2017 at 11:23 Medical Diagnosis: [place] Onset Date: Aug 03, 2017 Therapy Diagnosis Therapy Diagnosis: Weakness, Decreased ADL skills Height/Weight Height (Feet): 5 Height (Inches): 0.00 Weight (Pounds): 135 Weight (Ounces): 6.0 Precautions Precautions/Isolations: Standard Precautions Weight Bear Status Weight Bearing Restriction: Weight Bearing/Tolerated Referral Physician: Pradip Referral Reason: Activity Tolerance, Self Care, Evaluation/Treatment, Strengthening/ROM Medical History Pertinent Medical History: CAD, HTN, Hypothroidism Current History Pt. has been on SWB on vapotherm. Was weened from vapotherm. Currently sustaining 3 L 02. Reviewed History: Yes Social History Home: Single Level Current Living Status: Spouse Entry Into Home: Stairs Without Railing Steps Into Home: 2 ADL-Prior Level of Function ADL PLOF Comments Pt. was previously independent with daily tasks. Drive Self: Yes OT Current Status Subjective No pain reported. Appearance Pt. up in chair. Agrees to work with OT. Mental Status/Objective Patient Orientation: Person, Place, Time, Situation Attachments: Oxygen, Telemetry Current Glasses/Contacts: Yes Hand Dominance: Right Upper Extremity ROM WFL Upper Extremity Strength 3/5 bilateral UE strength. ADL-Treatment Functional [place] Measure 0=Not Assessed/NA 4=Minimal Assistance 1=Total Assistance 5=Supervision or Setup 2=Maximal Assistance 6=Modified [place] 3=Moderate Assistance 7=Complete IndependenceIRFPAI Quality Coding Scale 6 Independent with activity with or without an assistive device 5 Patient requires set up or clean up by helper. Patient completes activity by themselves 4 Supervision or touching assist (CGA). [place] provide cues , steadying assist 3 The helper provides less than half the effort to complete the activity 2 The helper provides more than half the effort to complete the activity 1 Dependent. The helper does all the effort to complete an activity 7 Patient refused to complete or attempt activity 9 The patient did not perform the activity before the current illness or injury 88 Not attempted due to Medical conditions or safety concerns Grooming (FIM): 5 (set up) Bathing (FIM): 5 (set up/SBA. Pt. able to wash all parts. Is careful when washing rear lois area.) Shower/Bathe Self (QC): 4 Upper Body Dressing (FIM): 5 Upper Body Dressing (QC): 4 Lower Body Dressing (FIM): 5 Lower Body Dressing (QC): 4 On/Off Footwear (QC): 4 Toileting (FIM): 5 (SBA to cleanse self on toilet.) Toileting Hygiene (QC): 4 Transfers (B, C, W/C) (FIM): 5 (SBA with walker to ambulate to bathroom.) Toilet/Commode Transfer (FIM): 5 Toilet Transfer (QC): 4 Shower Transfer (FIM): 5 Education OT Patient Education: Correct positioning, Modified ADL techniques, Progress toward Goal/Update tx plan, Purpose of tx/functional activities, Reviewed precautions, Rehab process, Transfer techniques Teaching Recipient: Patient Teaching Methods: Demonstration, Discussion Response to Teaching: Verbalize Understanding, Return Demonstration OT Short Term Goals Short Term Goals 1=Demonstrate adherence to instructed precautions during ADL tasks. 2=Patient will verbalize/demonstrate understanding of assistive devices/ modifications for ADL. 3=Patient will improve strength/tolerance for activity to enable patient to perform ADL's. OT [facility] Goals [facility] Goals Time Frame: Sep 01, 2017 Eating (FIM): 6 Eating (QC): 6 Groomin Oral Hygiene (QC): 6 Bathing(FIM): 5 Shower/Bathe Self (QC): 5 Upper Body Dressing(FIM): 6 Upper Body Dressing (QC): 6 Lower Body Dressing(FIM): 6 Lower Body Dressing (QC): 6 On/Off Footwear (QC): 6 Toileting(FIM): 6 Toileting Hygiene (QC): 6 Transfers (B,C,W/C) (FIM): 6 Toilet/Commode Transfer(FIM): 6 Toilet/Commode Transfer (QC): 6 Shower Transfer(FIM): 5 Additional Goals: 1-Demonstrate ADL Tasks, 2-Verbalize Understanding, 3- ImproveStrength/Herb 1=Demonstrate adherence to instructed precautions during ADL tasks. 2=Patient will verbalize/demonstrate understanding of assistive devices/ modifications for ADL. 3=Patient will improve strength/tolerance for activity to enable patient to perform ADL's. OT Education/Plan Problem List/Assessment Assessment: Decreased Activ Tolerance, Impaired I ADL's, Impaired Self-Care Skills Discharge Recommendations Plan/Recommendations: Continue POC Therapy D/C Recommendations: Home w/ Family Support, Occupational Therapy Home Care Target Placement Home with spouse and possibly home health OT. Treatment Plan/Plan of Care Treatment,Training & Education: Yes Patient would benefit from OT for education, treatment and training to promote independence in ADL's, mobility, safety and/or upper extremity function for ADL' s. Plan of Care: ADL Retraining, Functional Mobility, UE Funct Exercise/Act Treatment Duration: Sep 01, 2017 Frequency: At least 5 of 7 days/Wk (IRF) Estimated Hrs Per Day: 1.5 hours per day Agreement: Yes Rehab Potential: Good Time/GCodes Start Time: 11:30 Stop Time: 12:00 Total Time Billed (hr/min): 30 Billed Treatment Time 1, EVM x 15minutes, ADL x 15minutes MORGAN DIAZ OT Aug 18, 2017 13:12
--- NOTE | 2017-08-18 14:42 | Occupational Ther Daily Note ---
OT Current Status-Daily Note Subjective Pt alert, sitting at ARU table. Took over care from OT/PT group. Pt agreed to therapy. No c/o pain at this time. Mental Status/Objective Patient Orientation: Person, Place, Time, Situation Functional [place] Measure 0=Not Assessed/NA 4=Minimal Assistance 1=Total Assistance 5=Supervision or Setup 2=Maximal Assistance 6=Modified [place] 3=Moderate Assistance 7=Complete [place] Attachments: Oxygen ADL-Treatment Functional [place] Measure 0=Not Assessed/NA 4=Minimal Assistance 1=Total Assistance 5=Supervision or Setup 2=Maximal Assistance 6=Modified [place] 3=Moderate Assistance 7=Complete IndependenceIRFPAI Quality Coding Scale 6 Independent with activity with or without an assistive device 5 Patient requires set up or clean up by helper. Patient completes activity by themselves 4 Supervision or touching assist (CGA). [place] provide cues , steadying assist 3 The helper provides less than half the effort to complete the activity 2 The helper provides more than half the effort to complete the activity 1 Dependent. The helper does all the effort to complete an activity 7 Patient refused to complete or attempt activity 9 The patient did not perform the activity before the current illness or injury 88 Not attempted due to Medical conditions or safety concerns Other Treatment Pt ambulated with SBA using FWW to therapy gym. Pt completed arm bike duration 8 min with 2 recovery breaks no resistances to increase strength and activity tolerance for daily functional tasks. Pt then completed resistive clothespins, 25 each hand, to increase strength for pinch and coal wheeler during ADLs. PT took over care of pt. All needs met. OT Short Term Goals Short Term Goals 1=Demonstrate adherence to instructed precautions during ADL tasks. 2=Patient will verbalize/demonstrate understanding of assistive devices/ modifications for ADL. 3=Patient will improve strength/tolerance for activity to enable patient to perform ADL's. OT Diver Assistant Goals Detention Goals Time Frame: Sep 01, 2017 Eating (FIM): 6 Eating (QC): 6 Groomin Oral Hygiene (QC): 6 Bathing(FIM): 5 Shower/Bathe Self (QC): 5 Upper Body Dressing(FIM): 6 Upper Body Dressing (QC): 6 Lower Body Dressing(FIM): 6 Lower Body Dressing (QC): 6 On/Off Footwear (QC): 6 Toileting(FIM): 6 Toileting Hygiene (QC): 6 Transfers (B,C,W/C) (FIM): 6 Toilet/Commode Transfer(FIM): 6 Toilet/Commode Transfer (QC): 6 Shower Transfer(FIM): 5 Additional Goals: 1-Demonstrate ADL Tasks, 2-Verbalize Understanding, 3- ImproveStrength/Herb 1=Demonstrate adherence to instructed precautions during ADL tasks. 2=Patient will verbalize/demonstrate understanding of assistive devices/ modifications for ADL. 3=Patient will improve strength/tolerance for activity to enable patient to perform ADL's. OT Education/Plan Discharge Recommendations Plan/Recommendations: Continue POC Treatment Plan/Plan of Care Patient would benefit from OT for education, treatment and training to promote independence in ADL's, mobility, safety and/or upper extremity function for ADL' s. Plan of Care: ADL Retraining, Functional Mobility, UE Funct Exercise/Act Treatment Duration: Sep 01, 2017 Frequency: At least 5 of 7 days/Wk (IRF) Estimated Hrs Per Day: 1.5 hours per day Agreement: Yes Rehab Potential: Good Time/GCodes Start Time: 14:05 Stop Time: 14:35 Total Time Billed (hr/min): 30 Billed Treatment Time 1 visit-EX 2 (30 min) PAOLA BUITRAGO Aug 18, 2017 14:42
--- NOTE | 2017-08-18 15:42 | ST Cognitive Linguistic Eval ---
Speech Evaluation-General Medical Diagnosis [place] Onset Date: Aug 03, 2017 Therapy Diagnosis Therapy Diagnosis: Cognitive Linguistic Skills WNL Precautions Precautions/Isolations: Standard Precautions Referral Referring Physician: Dr. Deangelo Moseley Reason for Referral: Evaluation/Treatment Cognitive Evaluatin Medical History Pertinent Medical History: CAD, HTN, Hypothroidism Reviewed History: Yes Social History Current Living Status: Spouse Speech PLF-Current Status Prior Level of Function The patient denied prior challenges with speech, language, or cognition prior to or throughout her hospitalization. Subjective The patient was seated upright in recliner upon entrance. The patient greeted the clinician appropriately and was agreeable to participation in the cognitive evaluation. Language Eval: Auditory Comprehends Simple Yes/No Ques: Functional Indent/Objects [place]: Functional Ident/Pics in [place]: Functional Follows 1-Step Commands: Functional Follows Complex Directions: Functional Follows General Conversations: Functional Language Eval: Verbal Language Completes Spontaneous Greeting: Functional Produces Auto, Serial Info: Functional Imitates Simple Words/Phrases: Functional Word Finding: Functional Requests Basic Needs: Functional States Basic Personal Info: Functional Expresses Complex Ideas: Functional Cognitive Patient Orientation The patient was independently oriented to self, location, month, day of week, and year. Objective Cognitive Domain Attention: WNL Memory: WNL Problem Solving: Functional Objective Impression The patient demonstrated cognitive linguistic skills WNL and appropriate for completion of ADLs. Communication/Social Cognition Comprehension: 6 Expression: 6 Social Interaction: 6 Problem Solvin Memory: 6 Speech Patient Assess Expression of Ideas/Wants: Expression (4) Understanding [place] Content: Understands (4) Brief Interview-Mental Status: Yes Repetition of Three Words: Three (3) Temporal Orientation: Year: Correct (3) Temporal Orientation: Month: Accurate within 5 days(2) Temporal Orientation: Day: Correct (1) Recall : Wear to say "Sock": Yes, no cue required (2) Recall : Color: Yes, no cue required (2) Recall : Bed: Yes, no cue required (2) Speech-Plan Treatment Plan Speech Therapy Treatment Plan: Discontinue ST Evaluation, only. Frequency: Modified Program (IRF) Estimated Hrs Per Day: Other Rehab Potential: Good Safety Risks/Education Teaching Recipient: Patient Teaching Methods: Discussion Response to Teaching: Verbalize Understanding Education Topics Provided: Results, Recommendations, Plan of Care Time Speech Therapy Time In: 15:20 Speech Therapy Time Out: 15:30 Total Billed Time: 10 Billed Treatment Time 1, ASHLEYNDEV GARDNER Aug 18, 2017 15:42
--- NOTE | 2017-08-18 15:54 | Therapy Group Daily Note ---
Therapy Daily Group Note Patient Education Topic Other List Below (Recognizing Safety Signs Around Us) Exercises LE Seated Exercise, UE Exercise Other/Notes Pt participated in Group led by TELEVISION ANTENNA INSTALLER which focused on recognizing the signs around us especially for safety. Group consisted of Introductions (Name, Where you are from & Your favorite Season & Why), Explanation of ARU and how it works for new patient on unit and activity in which pt identified signs and why it is important to recognize them. Pt participated in Seated UE & LE Ex before returning to room to rest at end of Group. Pt actively participated in complete activity and was able to give examples as well as Ex. Start Time: 13:00 Stop Time: 14:05 Total Billed Treatment Time: 65 Total Billed Treatment 1, GRP JULIO PADRON PTA Aug 18, 2017 15:54
--- NOTE | 2017-08-18 16:00 | Physical Therapy Daily Note ---
PT Daily Note-Current Subjective Pt sitting in chair in Therapy Gym after just finishing tx with OT. Pt agrees to PT. Pain Location: No Pain Reported Mental Status Patient Orientation: Person, Place, Time, Situation Attachments: Oxygen (3L) Transfers Functional [place] Measure 0=Not Assessed/NA 4=Minimal Assistance 1=Total Assistance 5=Supervision or Setup 2=Maximal Assistance 6=Modified [place] 3=Moderate Assistance 7=Complete IndependenceIRFPAI Quality Coding Scale 6 Independent with activity with or without an assistive device 5 Patient requires set up or clean up by helper. Patient completes activity by themselves 4 Supervision or touching assist (CGA). [place] provide cues , steadying assist 3 The helper provides less than half the effort to complete the activity 2 The helper provides more than half the effort to complete the activity 1 Dependent. The helper does all the effort to complete an activity 7 Patient refused to complete or attempt activity 9 The patient did not perform the activity before the current illness or injury 88 Not attempted due to Medical conditions or safety concerns Scootin Sit to/from Stand: 5 Sit to Stand (QC): 5 Weight Bearing Right Lower Extremity: Right Full Weight Bearing Left Lower Extremity: Left Full Weight Bearing Gait Training Does the Patient Walk?: Yes Distance (FIM): 3=150 ft Distance: 150' Walk 10 feet (QC): 5 Walk 50 ft with 2 Turns(QC): 5 Walk 150 ft (QC): 5 Gait Level of Assist: 5 Gait Persons Needed: 1 Gait Assistive Device: FWW Pt walks with slow but steady gait. Pt fatigues easy but quick to recover. Wheelchair Training Does the Pt Use a Wheelchair?: No Exercises NuStep Minutes: 10 NuStep Workload: 2 Treatments Pt transfers from chair to standing using FWW and ambulates to NuStep to use for 10m at Workload 2. Pt takes short rest before ambulating back towards room to rest. Pt rests in recliner with feet reclined at end of tx with all needs met. Assessment Current Status: Good Progress Pt is a little tired from all the Therapy since arriving on ARU. PT Custodial Goals Microbiology Instructor Goals PT Microbiology Instructor Goals Time Frame: Sep 12, 2017 Transfers (B,C,W/C) (FIM): 6 Sit to Lying (QC): 6 Lying-Sitting on Side/Bed(QC): 6 Sit to Stand (QC): 6 Rollin Roll Left to Right (QC): 6 Chair/Dde-iw-Cjyvt Xfer(QC): 6 Car Transfer (QC): 6 Gait (FIM): 7 Gait distance (FIM): 3=150 ft Distance: 250' Walk 10 feet (QC): 6 Walk 10ft-Uneven Surface(QC): 6 Walk 50ft with 2 Turns (QC): 6 Walk 150 ft (QC): 6 Gait Level of Assist: 7 Gait Assistive Device: None, Cane Single Point Stairs (FIM): 6 # of Steps: 12 1 Step (curb) (QC): 6 4 Steps (QC): 6 12 Steps (QC): 6 Stairs Level Of Assist: 6 Picking up an Object (QC): 6 PT Plan Problem List Problem List: Activity Tolerance, Functional Strength Treatment/Plan Treatment Plan: Continue Plan of Care Treatment Plan: Bed Mobility, Education, Functional Activity Herb, Functional Strength, Group Therapy, Gait, Safety, Therapeutic Exercise, Transfers Treatment Duration: Sep 12, 2017 Frequency: At least 5 of 7 days/Wk (IRF) Estimated Hrs Per Day: 1.5 hours per day Patient and/or Family Agrees t: Yes Safety Risks/Education Patient Education: Gait Training, Transfer Techniques, Correct Positioning, Safety Issues Teaching Recipient: Patient Teaching Methods: Discussion Response to Teaching: Verbalize Understanding Time/GCodes Time In: 1435 Time Out: 1505 Total Billed Treatment Time: 30 Total Billed Treatment 1, GT (10m) & EX (20m) JULIO PADRON PTA Aug 18, 2017 16:00
[2017-08-18] MEDS ORDERED: FAMOTIDINE 20 MG (PEPCID) TABLET PO PRN (18:00)
[2017-08-18] MEDS ORDERED: ACETAMINOPHEN 325 MG TABLET/CAPLET (TYLENOL) PO PRN (18:00)
[2017-08-18] MEDS ORDERED: FUROSEMIDE 40 MG (LASIX) TAB PO NR (18:15)
[2017-08-18 18:28] VITALS: BP 106/59
[2017-08-18] MEDS: ATORVASTATIN 80 MG (LIPITOR) TABLET PO SCH (20:20)
[2017-08-18] MEDS: CHOLESTYRAMINE 4 GM (QUESTRAN LITE, PREVALITE) PKT PO SCH (20:20)
[2017-08-18] MEDS ORDERED: LOPERAMIDE 2 MG (IMODIUM) CAP PO PRN (20:30)
[2017-08-18] MEDS ORDERED: HYDROCORTISONE 2.5% CREAM (ANUSOL-HC) 30 GM TOP PRN (20:30)
[2017-08-18] MEDS: meTOprolol TARTRATE 25 MG (LOPRESSOR) TABLET PO SCH (22:39)
--- NOTE | 2017-08-18 23:11 | HISTORY AND PHYSICAL ---
DATE OF SERVICE: 08/18/2017 CHIEF COMPLAINT: Difficulty with walking. HISTORY OF PRESENT ILLNESS: The patient is a 71-year-old female, who had been independent and living with her spouse in [place] before she presented to the ED with complaints of ear pain and cold sweats. Cardiology was consulted regarding possible angina. The patient underwent emergency catheterization and PCI. The patient sustained an acute ST elevation MO involving the inferior wall associated with RV infarct. The left ventricular systolic function was well preserved with ejection fraction of 60%.The patient had PAF s/p MO and meds adjusted Pulmonology was consulted regarding ongoing shortness of breath, felt to be likely due to pneumonia and pleural effusions. The patient was started on Zosyn. The patient was seen by Hematology regarding thrombocytopenia, lab work done. The patient was started on Eliquis and continued on Plavix. The patient gradually had decreasing O2 requirements and complaints of shortness of breath and was referred to inpatient rehabilitation unit for ongoing care and therapies at this point. Currently, the patient is on supplemental O2. She is on 3 liters of O2 by nasal cannula. She is set up for grooming and eating, min assist for upper body dressing and lower body dressing and toileting. The patient is standby assist for ambulation with a front wheel walker, standby assist for transfers, bed to wheelchair. PAST MEDICAL HISTORY: Coronary artery disease, possible hyper thyroidism with TSH .26. PAST SURGICAL HISTORY: She reports having torn ligament repair in the left knee and a left rotator cuff repair. ALLERGIES: No known medication allergies. FAMILY HISTORY: Noncontributory. SOCIAL HISTORY: Had been independent, living with her spouse in [place].PCP DR boyd REVIEW OF SYSTEMS: Ten-point review of systems is significant for shortness of breath. MEDICATIONS: ASA 81 mg p.o. every day, Plavix 75 mg p.o. daily, furosemide 20 mg p.o. b.i.d., Protonix 40 mg p.o. daily, Lactinex one tablet p.o. a.c., Lipitor 80 mg p.o. each day at bedtime, Questran 4 grams p.o. q.i.d. a.c. and at bedtime, Lopressor 25 mg p.o. b.i.d., Anusol cream apply to affected area b.i.d. p.r.n. mild pain, Imodium 2 mg as needed for diarrhea, Calmoseptine ointment apply to affected area b.i.d. p.r.n., furosemide 40 mg p.o. q.evening, Tylenol 650 mg p.o. q.6 hours p.r.n. mild pain, and Pepcid 20 mg p.o. daily p.r.n. indigestion. PHYSICAL EXAMINATION: GENERAL: Significant for pleasant lady appearing her stated age, sitting in recliner, in no acute distress. VITAL SIGNS: She is afebrile, pulse is 93, respirations 20, blood pressure 106/59, and O2 sat 98% on 3 liters O2 by nasal cannula. HEENT: Vision, speech, hearing grossly intact. No oral lesions noted. NECK: Supple without mass. CARDIOVASCULAR: Regular rate and rhythm. RESPIRATORY: Chest is clear. ABDOMEN: Soft, nontender, bowel sounds present. EXTREMITIES: No calf tenderness. She has trace edema on both ankles. MUSCULOSKELETAL: She has functional active range of motion in all 4 extremities. NEUROLOGIC: Cognition intact. Sensation grossly intact to touch. Strength 3/5 in both upper limbs. She is right-hand dominant. Strength in the lower limbs is 3+/5 at the hip and knee, 4/5 at the ankle dorsi and plantar flexors. ASSESSMENT: 1. General debilitation secondary to ST elevation myocardial infarction involving the inferior wall of the right ventricle, currently on Eliquis and Plavix. 2. Post-myocardial infarction respiratory insufficiency, on O2 by nasal cannula as per above. 3. Pneumonia, treated, remains on O2. 4. Paroxysmal atrial fibrillation, controlled with medication. 5. Deep vein thrombosis prophylaxis, on SCDs and above meds. PLAN: The patient will have a comprehensive program of inpatient rehabilitation with the goal of maximizing level of functional independence prior to discharge home with spouse. The patient will have PT, OT 90 minutes per day each discipline, 5 days a week as per post-admission physician evaluation plan of care. Please see that separate document for details. Speech Therapy to do cognitive assessment, treat as indicated. Rehabilitation nursing assist with bowel, bladder, skin care, medication administration, and pain management. Circuit Court Clerk to assist with discharge planning, community reentry. Follow up with Dr. Boyd, Cardiology and Pulmonology as per their schedule, Respiratory Therapy to assist with O2 administration monitoring O2 sats and weaning as able. ESTIMATED LENGTH OF STAY: 14 days. PROGNOSIS: Rehab prognosis appears good for goal of discharging home with spouse, modified independent to supervision for ADLs and mobility skills. DIET: Carb consistent. CODE STATUS: Full code. Job ID: [id number] DocumentID: [id number] Dictated Date: 08/18/2017 21:27:32 Aging Box Hand Date: 08/18/2017 23:10:27 Dictated By: MIRIAN PARKER MD MTDD
[2017-08-19 05:02] VITALS: BP 129/75
[2017-08-19 05:45] LABS: HEMOGLOBIN 9.6 G/DL (11.5-16.0); MEAN PLATELET VOLUME 10.7 FL (7.4-10.4); RED BLOOD COUNT 3.02 10^6/uL (4.35-5.85); RED CELL DISTRIBUTION WIDTH 11.9 % (10.0-14.5); WHITE BLOOD COUNT 6.3 10^3/uL (4.3-11.0)
[2017-08-19 05:47] LABS: BUN/CREATININE RATIO 13; CALCIUM 8.6 MG/DL (8.5-10.1); CARBON DIOXIDE 29 MMOL/L (21-32); CHLORIDE 98 MMOL/L (98-107); GFR ESTIMATED > 60; GLUCOSE 119 MG/DL (70-105); POTASSIUM 4.2 MMOL/L (3.6-5.0); SODIUM 135 MMOL/L (135-145)
[2017-08-19] MEDS: LACTOBACILLUS Acidoph/Bulgar (LACTINEX/FLORANEX) TAB PO SCH ×3 (06:54→17:11)
[2017-08-19] MEDS: PANTOPRAZOLE 40 MG (PROTONIX) TAB PO SCH (06:55)
[2017-08-19] MEDS: FUROSEMIDE 40 MG (LASIX) TAB PO SCH ×2 (06:55→17:12)
[2017-08-19] MEDS: CHOLESTYRAMINE 4 GM (QUESTRAN LITE, PREVALITE) PKT PO SCH ×4 (06:55→20:37)
[2017-08-19] MEDS: ASPIRIN E.C. 81 MG (ECOTRIN) TAB PO SCH (08:24)
[2017-08-19] MEDS: CLOPIDOGREL 75 MG (PLAVIX) TABLET PO SCH (08:24)
--- NOTE | 2017-08-19 08:24 | Progress Note-Cardiology ---
Cardiology SOAP Progress Note Subjective: Up with PT. Continues to feel SOB with exertion. No c/o CP or palpitations. No report of syncope or near syncope. Gen weakness. Objective: I&O/Vital Signs Vital Sign - Last 12Hours 08/19/17 08/19/17 08/19/17 08/19/17 05:02 08:35 08:55 12:13 Temp 97.7 Pulse 83 93 Resp 22 20 B/P (MAP) 129/75 (93) 114/74 (87) Pulse Ox 92 96 O2 Delivery Nasal Cannula Nasal Cannula Nasal Cannula High Flow N/C O2 Flow Rate 3.00 3.00 3.00 3.00 Weight (Pounds): 135 Weight (Ounces): 6.0 Weight (Calculated Kilograms): [id number] Constitutional: AAO x 3 Respiratory: other (diminished bases bilat) Cardiovascular: regular rate-rhythm, S1 and S2 Gastrointestional: soft, round, audible bowel sounds Extremities: no lower extremity edema bilateral Neurologic/Psychiatric: grossly intact Skin: No rash, No ulcerations Results/Procedures: Labs Laboratory Tests 08/19/17 05:20: White Blood Count 6.3, Red Blood Count 3.02L, Hemoglobin 9.6L, Hematocrit 28L, Mean Corpuscular Volume 93, Mean Corpuscular Hemoglobin 32, Mean Corpuscular Hemoglobin Concent 34, Red Cell Distribution Width 11.9, Platelet Count 302, Mean Platelet Volume 10.7H, Sodium Level 135, Potassium Level 4.2, Chloride Level 98, Carbon Dioxide Level 29, Anion Gap 8, Blood Urea Nitrogen 8, Creatinine 0.60, Estimat Glomerular Filtration Rate > 60, BUN/Creatinine Ratio 13, Glucose Level 119H, Calcium Level 8.6, B-Type Natriuretic Peptide 512.3H A/P: Assessment: Status post acute ST elevation myocardial infarction involving the inferior wall associated with RV infarct. Coronary artery disease, status post cardiac catheterization done by Dr. Schumacher on 08/04/17: Mid vessel occlusion of the right coronary artery treated with overlapping stents (Alpine Xience 2.75 x 28 mm the distal part of which extends slightly into the right ventricular branch) and Alpine Xience 2.75 x 12 mm stent that was placed through the expanded struts of the previous stent and overlaps the previous stent to some degree. There is no significant residual stenosis in the right coronary artery and the flow was normal, but right ventricular branch was lost during the procedure due to infarct-related thrombus. A 90% to 95% stenosis of the proximal left circumflex artery, which was treated with stenting with Alpine Xience 2.25 x 12 mm stent with reduction of stenosis to 0% residual. The left anterior descending artery has diffuse mild -to-moderate disease Well preserved global left ventricular systolic function with ejection fraction 60%, postero-basal hypokinesis, no significant mitral regurgitation and mild elevation of left ventricular end-diastolic pressure on LHC of 08/04/17 Congestive heart failure, acute left ventricular diastolic dysfunction with right-sided heart failure Echo of 08/04/17: LVEF 55-60%,mild AI, grade I diastolic dysfunction of LV, PASP WNL Paroxysmal atrial fib/flutter, currently in sinus rhythm, had episodes of atrial fibrillation/flutter within 48 hours her myocardial infarction, has since been maintaining sinus rhythm - OAC has been withheld Anemia, stool for occult blood is negative. H&H are better Hypotension - likely d/t RV infarct, improved Shortness of breath, bilateral pleural effusion, pulmonary edema and questionable pneumonia, receiving diuretics and antibiotics, slow improvement. Thrombocytopenia, improved, unlikely to be HIT, followed and managed by Dr. Diaz TSH 0.26 on lab of - indicative of hyperthyroidism Elevated transaminases likely d/t STEMI, continue to monitor Plan: Continue PT/OT Continue current medication regimen Monitor lab closely Physician Assessment Physician Assessment Notes gen weakness. Denies cp or palp or syncope or shortness of breath or balance problems Lungs: clear Cor: reg Ext: no c/c/e A&R * As documented in our note above that I updated at the time of this writing ( italics) and as noted below * Continue rehab * Continue current card regimen * F/u on labs from time to time ABHISHEK BANDA Aug 19, 2017 08:24 LIZY SCHUMACHER MD [facility] Aug 19, 2017 13:46
--- NOTE | 2017-08-19 08:30 | Consultation ---
History of Present Illness History of Present Illness Patient Consulted On(donavan/time) 08/19/17 08:26 Time Seen by Provider: 08:25 History of Present Illness Patient came out to the emergency room at via [facility] with ear pain. Patient has acute MT. Patient had coronary angiography. Patient short of breath later. Patient had proximal atrial fibrillation. Patient has debility. Patient had pneumonia. Patient sent to rehabilitation for debility Allergies and Home Medications Allergies Coded Allergies: No Known Drug Allergies (Unverified , 08/03/17) Home Medications Acetaminophen 325 Mg Tablet, 650 MG PO Q6HR PRN for PAIN-MILD Prescribed by: DEREK BAXTER on 08/18/17 1023 Aspirin 81 Mg Tablet.dr, 81 MG PO Q48H, (Reported) ALTERNATES COATED ASPIRIN WITH CHEWABLE ASPIRN EVERY OTHER DAY AT SUPPER TIME. Aspirin 81 Mg Tab.chew, 81 MG PO Q48H, (Reported) ALTERNATES COATED ASPIRIN WITH CHEWABLE ASPIRN EVERY OTHER DAY AT SUPPER TIME. Aspirin 81 Mg Tablet.dr, 81 MG PO DAILY Prescribed by: DEREK BAXTER on 08/18/17 1023 Atorvastatin Calcium 80 Mg Tablet, 80 MG PO HS Prescribed by: DEREK BAXTER on 08/18/17 1023 Calcium Citrate/Vitamin D3 1 Each Tablet, 1 TAB PO HS, (Reported) Cholestyramine/Aspartame 4 Gm Powd.pack, 4 GM PO ACHS Prescribed by: DEREK BAXTER on 08/18/17 1023 Clopidogrel Bisulfate 75 Mg Tablet, 75 MG PO DAILY Prescribed by: DEREK BAXTER on 08/18/17 1023 Famotidine 20 Mg Tablet, 20 MG PO DAILY PRN for INDIGESTION Prescribed by: DEREK BAXTER on 08/18/17 1023 Hydrocortisone 30 Gm Cream.appl, 0 GM TOP BID Prescribed by: DEREK BAXTER on 08/18/17 1023 L. Acidophilus/Bulgaricus 1 Each Tablet, 1 TAB.CHEW PO AC Prescribed by: DEREK BAXTER on 08/18/17 1023 Levothyroxine Sodium 50 Mcg Tablet, 50 MCG PO DAILY, (Reported) Loperamide HCl 2 Mg Capsule, 2 MG PO NEEDED PRN for DIARRHEA Prescribed by: DEREK BAXTER on 08/18/17 1023 Losartan Potassium 50 Mg Tablet, 50 MG PO DAILY, (Reported) Menthol/Lanolin/Calamine/Znox 71 Gm Oint, 0 GM TOP BID Prescribed by: DEREK BAXTER on 08/18/17 1023 Metoprolol Tartrate 25 Mg Tablet, 25 MG PO BID Prescribed by: DEREK BAXTER on 08/18/17 1023 Venlafaxine HCl 37.5 Mg Tab, 37.5 MG PO DAILY, (Reported) [Philip W/ C] , 1 TAB PO 1800, (Reported) Patient Home Medication List Home Medication List Reviewed: Yes Past Xazwkni-Dnwclq-Jwyphh Hx Patient Social History Alcohol Use: Rarely Uses Number of Drinks Today: 0 Recreational Drug Use: No 2nd Hand Smoke Exposure: No Recent Foreign Travel: No Contact w/Someone Who Travel: No Recent Infectious Disease Expo: No Recent Hopitalizations: No Immunizations Up To Date Date of Pneumonia Vaccine: Apr 06, 2016 Date of Influenza Vaccine: Apr 06, 2017 Seasonal Allergies Seasonal Allergies: No Surgeries History of Surgeries: Yes Surgeries: Section Respiratory History of Respiratory Disorde: No Cardiovascular History of Cardiac Disorders: Yes Cardiac Disorders: High Cholesterol, Hypertension Neurological History of Neurological Disord: No Genitourinary History of Genitourinary Disor: No Gastrointestinal History of Gastrointestinal Di: No Musculoskeletal History of Musculoskeletal Dis: Yes Musculoskeletal Disorders: Arthritis Endocrine History of Endocrine Disorders: Yes (thyroid problems) Endocrine Disorders: Hypothyroidsim HEENT History of HEENT Disorders: No Cancer History of Cancer: No Psychosocial History of Psychiatric Problem: No Integumentary History of Skin or Integumenta: No Blood Transfusions History of Blood Disorders: No Family Medical History Significant Family History: No Pertinent Family Hx Review of Systems-General Constitutional: weakness EENTM: no symptoms reported Respiratory: short of breath, other (Pneumonia) Cardiovascular: Hx of Intervention Gastrointestinal: no symptoms reported Genitourinary: no symptoms reported Physical Exam-General Problems Physical Exam Vital Signs Vital Signs - First Documented 08/18/17 08/18/17 11:25 18:28 Temp 97.8 Pulse 91 Resp 20 B/P (MAP) 99/65 (76) Pulse Ox 98 O2 Delivery Nasal Cannula O2 Flow Rate 3.00 Capillary Refill : General Appearance: WD/WN, other (Short of breath with exertion) Eyes: Bilateral Eye Normal Inspection HEENT: normal ENT inspection Neck: full range of motion Respiratory: decreased breath sounds, other (On nasal oxygen) Cardiovascular: regular rate, rhythm, no murmur Gastrointestinal: non tender, soft Assessment/Plan Assessment/Plan Admission Diagnosis/Plan Debility. Respiratory failure with hypoxia. History of acute MT Clinical Quality Measures DVT/VTE Risk/Contraindication: Risk Factor Score Per Nursin RFS Level Per Nursing on Admit: 2=Moderate ABRAM BRITT DO Aug 19, 2017 08:30
--- NOTE | 2017-08-19 08:39 | PM & R (SOAP) Progress Note ---
Subjective Time Seen by Provider: 08:10 Subjective/Events-last exam Patient was seen in her room this AM Adjusting well to unit Appreciate Cardiology note Patient SBA for transfers Review of Systems Pulmonary: Dyspnea Neurological: Weakness Objective Exam Last Set of Vital Signs Vital Signs Date Time Temp Pulse Resp B/P (MAP) Pulse Ox O2 Delivery O2 Flow Rate FiO2 08/19/17 05:02 97.7 83 22 129/75 (93) 92 Nasal Cannula 3.00 Capillary Refill : I&O Intake and Output 08/19/17 00:00 Daily Weight Change No General: Alert, Oriented X3, No Acute Distress HEENT: Atraumatic, PERRLA, EOMI, Mucous Memb Moist/[place] Neck: Supple, No JVD Lungs: Clear to Auscultation Heart: Regular Rate Abdomen: Normal Bowel Sounds, Soft, No Tenderness Extremities: No Edema Neuro: Other (generalized weakness) Results Lab Laboratory Tests 08/19/17 05:20: White Blood Count 6.3, Red Blood Count 3.02L, Hemoglobin 9.6L, Hematocrit 28L, Mean Corpuscular Volume 93, Mean Corpuscular Hemoglobin 32, Mean Corpuscular Hemoglobin Concent 34, Red Cell Distribution Width 11.9, Platelet Count 302, Mean Platelet Volume 10.7H, Sodium Level 135, Potassium Level 4.2, Chloride Level 98, Carbon Dioxide Level 29, Anion Gap 8, Blood Urea Nitrogen 8, Creatinine 0.60, Estimat Glomerular Filtration Rate > 60, BUN/Creatinine Ratio 13, Glucose Level 119H, Calcium Level 8.6, B-Type Natriuretic Peptide 512.3H Assessment/Plan Assessment General debil s/p acute ST elevation AK involving the inferior wall associated with RV infarct Anemia Bilateral pleural effusions with 02 dependence Thrombocytopenia improved followed by hematology Post mi PAF resolved Acute diastolic CHF being treated by Cardiology Elevated Transaminases likely due to STEMI continue to monitor Plan Continue PT/OT Team Conference tomorrow 08-20-17 F/U with Cardiology and PCP MIRIAN PARKER MD Aug 19, 2017 08:39
--- NOTE | 2017-08-19 08:45 | PM&R Post Admission Assessment ---
Post Admission Physician Asses The preadmission screen agrees with the post admission assessment that the patient is a good candidate for inpatient rehabilitation. The patient will have a comprehensive program of inpatient rehabilitation with a goal of maximizing level of functional independence prior to discharge home with spouse. The patient will have PT/OT ninety minutes per day, each discipline, five days a week for gait, strengthening, conditioning, balance, ADLs, any patient/family/caregiver training as necessary. Speech therapy to do cognitive assessment and treat as indicated. Rehabilitation nursing to assist with bowel, bladder, skin, wound care, medication administration, pain management. Video Editing Internship to assist with discharge planning, community reentry. SCD's for DVT prophylaxis. She appears to be well motivated to participate in three hours of therapy a day. She should be able to tolerate three hours of therapy a day from a medical standpoint. She should benefit from the three hours of therapy a day. She has a reasonable discharge plan, reasonable discharge rehabilitation goals and a supportive family. She has various comorbidities that need to be closely monitored with medications and treatments adjusted on a daily basis as needed. These include: CHF PAF Anemia Postmi Resp insufficiency on supplemental 02 Barriers to discharge for this patient who had been independent prior to this are for her to be modified independent to supervision for ADLs and mobility skills prior to discharge home with spouse, so as to lessen the burden of the caregivers. Risks for this patient include: 1. Fall 2. Fracture 3. DVT 4. Pulmonary embolism 5. Worsening CHF 6. Skin breakdown 7. Contractures 8. Poorly controlled pain 9. Urinary retention 10. UTI 11. Respiratory infection 12. Aspiration 13. Recurrent PAF 14. Worsening Resp Failure Estimated Length of Stay: 10 days Prognosis: Rehab prognosis appears good for goal of discharge home with spouse modified independent to supervision for ADLs and mobility skills. [facility] CODE 09 Etiologic DX NC Inferior wall associated with RV infarct MIRIAN PARKER MD Aug 19, 2017 08:45
[2017-08-19 08:55] VITALS: BP 114/74
[2017-08-19] MEDS: meTOprolol TARTRATE 25 MG (LOPRESSOR) TABLET PO SCH ×2 (08:57→21:58)
[2017-08-19] MEDS ORDERED: PRAV40TA2 PO (09:24)
--- NOTE | 2017-08-19 11:05 | Physical Therapy Daily Note ---
PT Daily Note-Current Subjective Patient agrees to PT. She reports she is SOA today. Pain Numeric Pain Scale: 0-No Pain Location: No Pain Reported Mental Status Patient Orientation: Normal For Age Attachments: Oxygen (3L O2 HF) Transfers Functional [place] Measure 0=Not Assessed/NA 4=Minimal Assistance 1=Total Assistance 5=Supervision or Setup 2=Maximal Assistance 6=Modified [place] 3=Moderate Assistance 7=Complete IndependenceIRFPAI Quality Coding Scale 6 Independent with activity with or without an assistive device 5 Patient requires set up or clean up by helper. Patient completes activity by themselves 4 Supervision or touching assist (CGA). [place] provide cues , steadying assist 3 The helper provides less than half the effort to complete the activity 2 The helper provides more than half the effort to complete the activity 1 Dependent. The helper does all the effort to complete an activity 7 Patient refused to complete or attempt activity 9 The patient did not perform the activity before the current illness or injury 88 Not attempted due to Medical conditions or safety concerns Transfers (B, C, W/C) (FIM): 6 Scootin Sit to/from Stand: 6 Sit to Stand (QC): 5 Car Transfer (QC): 6 Weight Bearing Right Lower Extremity: Right Full Weight Bearing Left Lower Extremity: Left Full Weight Bearing Gait Training Does the Patient Walk?: Yes Gait (FIM): 5 Distance (FIM): 3=150 ft Distance: 200' x 3 Walk 10 feet (QC): 5 Walk 50 ft with 2 Turns(QC): 5 Walk 150 ft (QC): 5 Gait Level of Assist: 5 Gait Assistive Device: FWW slow, steady Exercises Standing: Heel/toe raises, 3 way Ex=Flex, Abd, Ext, Marching, Mini squats Standing Reps: 15 (2 sets) NuStep Minutes: 15 NuStep Workload: 2 (to improve pulmonary function) Assessment Patient requires multiple recovery periods due to increase SOA with SAO2 remaining >90%. PT to continue to increase activity as patient tolerates. PT Long-Term Goals Radio Station Engineer Goals PT Long-Term Goals Time Frame: Sep 12, 2017 Transfers (B,C,W/C) (FIM): 6 Sit to Lying (QC): 6 Lying-Sitting on Side/Bed(QC): 6 Sit to Stand (QC): 6 Rollin Roll Left to Right (QC): 6 Chair/Dau-ax-Zjlnx Xfer(QC): 6 Car Transfer (QC): 6 Gait (FIM): 7 Gait distance (FIM): 3=150 ft Distance: 250' Walk 10 feet (QC): 6 Walk 10ft-Uneven Surface(QC): 6 Walk 50ft with 2 Turns (QC): 6 Walk 150 ft (QC): 6 Gait Level of Assist: 7 Gait Assistive Device: None, Cane Single Point Stairs (FIM): 6 # of Steps: 12 1 Step (curb) (QC): 6 4 Steps (QC): 6 12 Steps (QC): 6 Stairs Level Of Assist: 6 Picking up an Object (QC): 6 PT Plan Treatment/Plan Treatment Plan: Continue Plan of Care Treatment Plan: Bed Mobility, Education, Functional Activity Herb, Functional Strength, Group Therapy, Gait, Safety, Therapeutic Exercise, Transfers Treatment Duration: Sep 12, 2017 Frequency: At least 5 of 7 days/Wk (IRF) Estimated Hrs Per Day: 1.5 hours per day Patient and/or Family Agrees t: Yes Time/GCodes Time In: 1000 Time Out: 1100 Total Billed Treatment Time: 60 Total Billed Treatment 1 visit GT 14 min EX x 3 46 min SOFIE SIMMONS PT Aug 19, 2017 11:05
--- NOTE | 2017-08-19 11:08 | Occupational Ther Daily Note ---
OT Current Status-Daily Note Subjective Pt resting in bed, agrees to treatment. Pt has no c/o pain. Mental Status/Objective Functional [place] Measure 0=Not Assessed/NA 4=Minimal Assistance 1=Total Assistance 5=Supervision or Setup 2=Maximal Assistance 6=Modified [place] 3=Moderate Assistance 7=Complete [place] Attachments: Oxygen (3L) ADL-Treatment Pt supine to sit with supervision. Pt declined shower, but would like to complete other ADLs. Sit to stand with supervision. Gait to restroom with FWW. Pt stood at sink to complete grooming tasks. Pt washed face, combed hair, and brushed teeth with set up and increased time. Occasional rest breaks secondary to fatigue. Pt completed dressing tasks while seated EOB. Pt donned pullover shirt with set up. Donned pants with SBA for balance during standing for pant hike. Pt doffed/donned socks with set up. Functional [place] Measure 0=Not Assessed/NA 4=Minimal Assistance 1=Total Assistance 5=Supervision or Setup 2=Maximal Assistance 6=Modified [place] 3=Moderate Assistance 7=Complete IndependenceIRFPAI Quality Coding Scale 6 Independent with activity with or without an assistive device 5 Patient requires set up or clean up by helper. Patient completes activity by themselves 4 Supervision or touching assist (CGA). [place] provide cues , steadying assist 3 The helper provides less than half the effort to complete the activity 2 The helper provides more than half the effort to complete the activity 1 Dependent. The helper does all the effort to complete an activity 7 Patient refused to complete or attempt activity 9 The patient did not perform the activity before the current illness or injury 88 Not attempted due to Medical conditions or safety concerns Grooming (FIM): 5 Oral Hygiene (QC): 5 Upper Body (FIM): 5 Upper Body Dressing (QC): 5 Lower Body Dressing (FIM): 5 Lower Body Dressing (QC): 4 On/Off Footwear (QC): 5 Other Treatment Pt completed putty activity with bilateral hands to increase strength and coordination/manipulation skills. Pt able to remove small beads from putty with increased time. Bilateral hand topographical drafter exercises x20 reps with blue therapy foam to increase topographical drafter strength for functional tasks. Pt sitting in chair with needs met after session. OT Short Term Goals Short Term Goals 1=Demonstrate adherence to instructed precautions during ADL tasks. 2=Patient will verbalize/demonstrate understanding of assistive devices/ modifications for ADL. 3=Patient will improve strength/tolerance for activity to enable patient to perform ADL's. OT Manifold Operator Goals Senior Living Goals Time Frame: Sep 01, 2017 Eating (FIM): 6 Eating (QC): 6 Groomin Oral Hygiene (QC): 6 Bathing(FIM): 5 Shower/Bathe Self (QC): 5 Upper Body Dressing(FIM): 6 Upper Body Dressing (QC): 6 Lower Body Dressing(FIM): 6 Lower Body Dressing (QC): 6 On/Off Footwear (QC): 6 Toileting(FIM): 6 Toileting Hygiene (QC): 6 Transfers (B,C,W/C) (FIM): 6 Toilet/Commode Transfer(FIM): 6 Toilet/Commode Transfer (QC): 6 Shower Transfer(FIM): 5 Additional Goals: 1-Demonstrate ADL Tasks, 2-Verbalize Understanding, 3- ImproveStrength/Herb 1=Demonstrate adherence to instructed precautions during ADL tasks. 2=Patient will verbalize/demonstrate understanding of assistive devices/ modifications for ADL. 3=Patient will improve strength/tolerance for activity to enable patient to perform ADL's. OT Education/Plan Discharge Recommendations Plan/Recommendations: Continue POC Treatment Plan/Plan of Care Patient would benefit from OT for education, treatment and training to promote independence in ADL's, mobility, safety and/or upper extremity function for ADL' s. Plan of Care: ADL Retraining, Functional Mobility, UE Funct Exercise/Act Treatment Duration: Sep 01, 2017 Frequency: At least 5 of 7 days/Wk (IRF) Estimated Hrs Per Day: 1.5 hours per day Agreement: Yes Rehab Potential: Good Time/GCodes Start Time: 08:00 Stop Time: 09:00 Total Time Billed (hr/min): 60 Billed Treatment Time 1 visit, ADLx3(45minutes), EX(15minutes) TRICIA VARGAS OT Aug 19, 2017 11:08
--- NOTE | 2017-08-19 13:12 | Occupational Ther Daily Note ---
OT Current Status-Daily Note Subjective Pt sitting in chair, agrees to treatment. Mental Status/Objective Functional [place] Measure 0=Not Assessed/NA 4=Minimal Assistance 1=Total Assistance 5=Supervision or Setup 2=Maximal Assistance 6=Modified [place] 3=Moderate Assistance 7=Complete [place] Attachments: Oxygen (3L) ADL-Treatment Functional [place] Measure 0=Not Assessed/NA 4=Minimal Assistance 1=Total Assistance 5=Supervision or Setup 2=Maximal Assistance 6=Modified [place] 3=Moderate Assistance 7=Complete IndependenceIRFPAI Quality Coding Scale 6 Independent with activity with or without an assistive device 5 Patient requires set up or clean up by helper. Patient completes activity by themselves 4 Supervision or touching assist (CGA). [place] provide cues , steadying assist 3 The helper provides less than half the effort to complete the activity 2 The helper provides more than half the effort to complete the activity 1 Dependent. The helper does all the effort to complete an activity 7 Patient refused to complete or attempt activity 9 The patient did not perform the activity before the current illness or injury 88 Not attempted due to Medical conditions or safety concerns Other Treatment Gait to therapy gym with FWW, no LOB noted. Assist only for O2 tank. Arm bike [id number] to increase overall strength and activity tolerance needed for functional tasks. Pt completed activity without resistance and with slow pace. One rest break taken during activity. Pt completed fine motor task with nuts and bolts to increase coordination/manipulation skills. Pt able to complete task without assistance. Pt returned to room, sitting in chair with meal tray and other needs in reach after session. OT Short Term Goals Short Term Goals 1=Demonstrate adherence to instructed precautions during ADL tasks. 2=Patient will verbalize/demonstrate understanding of assistive devices/ modifications for ADL. 3=Patient will improve strength/tolerance for activity to enable patient to perform ADL's. OT Alf Goals Carriage Feeder Goals Time Frame: Sep 01, 2017 Eating (FIM): 6 Eating (QC): 6 Groomin Oral Hygiene (QC): 6 Bathing(FIM): 5 Shower/Bathe Self (QC): 5 Upper Body Dressing(FIM): 6 Upper Body Dressing (QC): 6 Lower Body Dressing(FIM): 6 Lower Body Dressing (QC): 6 On/Off Footwear (QC): 6 Toileting(FIM): 6 Toileting Hygiene (QC): 6 Transfers (B,C,W/C) (FIM): 6 Toilet/Commode Transfer(FIM): 6 Toilet/Commode Transfer (QC): 6 Shower Transfer(FIM): 5 Additional Goals: 1-Demonstrate ADL Tasks, 2-Verbalize Understanding, 3- ImproveStrength/Herb 1=Demonstrate adherence to instructed precautions during ADL tasks. 2=Patient will verbalize/demonstrate understanding of assistive devices/ modifications for ADL. 3=Patient will improve strength/tolerance for activity to enable patient to perform ADL's. OT Education/Plan Discharge Recommendations Plan/Recommendations: Continue POC Treatment Plan/Plan of Care Patient would benefit from OT for education, treatment and training to promote independence in ADL's, mobility, safety and/or upper extremity function for ADL' s. Plan of Care: ADL Retraining, Functional Mobility, UE Funct Exercise/Act Treatment Duration: Sep 01, 2017 Frequency: At least 5 of 7 days/Wk (IRF) Estimated Hrs Per Day: 1.5 hours per day Agreement: Yes Rehab Potential: Good Time/GCodes Start Time: 11:15 Stop Time: 11:45 Total Time Billed (hr/min): 30 Billed Treatment Time 1 visit, EXx2(30minutes) TRICIA VARGAS OT Aug 19, 2017 13:12
--- NOTE | 2017-08-19 13:48 | Physical Therapy Daily Note ---
PT Daily Note-Current Subjective Patient reports fatigue but agrees to PT. Pain Numeric Pain Scale: 0-No Pain Location: No Pain Reported Mental Status Patient Orientation: Normal For Age Attachments: Oxygen (3L HF NC) Transfers Functional [place] Measure 0=Not Assessed/NA 4=Minimal Assistance 1=Total Assistance 5=Supervision or Setup 2=Maximal Assistance 6=Modified [place] 3=Moderate Assistance 7=Complete IndependenceIRFPAI Quality Coding Scale 6 Independent with activity with or without an assistive device 5 Patient requires set up or clean up by helper. Patient completes activity by themselves 4 Supervision or touching assist (CGA). [place] provide cues , steadying assist 3 The helper provides less than half the effort to complete the activity 2 The helper provides more than half the effort to complete the activity 1 Dependent. The helper does all the effort to complete an activity 7 Patient refused to complete or attempt activity 9 The patient did not perform the activity before the current illness or injury 88 Not attempted due to Medical conditions or safety concerns Transfers (B, C, W/C) (FIM): 6 Scootin Sit to/from Stand: 6 Sit to Stand (QC): 6 Weight Bearing Right Lower Extremity: Right Full Weight Bearing Left Lower Extremity: Left Full Weight Bearing Gait Training Does the Patient Walk?: Yes Gait (FIM): 5 Distance (FIM): 3=150 ft Distance: 250' x 1; 200' x 1 Walk 10 feet (QC): 5 Walk 50 ft with 2 Turns(QC): 5 Walk 150 ft (QC): 5 Gait Level of Assist: 5 Gait Assistive Device: FWW slow, steady Exercises NuStep Minutes: 15 NuStep Workload: 3 (to improve pulmonary function) Assessment Patient requires recovery periods due to SOA, however, SAO2 remains >90% on 3L HF NC PT Residential Goals Residential Goals PT Concrete Pouring Supervisor Goals Time Frame: Sep 12, 2017 Transfers (B,C,W/C) (FIM): 6 Sit to Lying (QC): 6 Lying-Sitting on Side/Bed(QC): 6 Sit to Stand (QC): 6 Rollin Roll Left to Right (QC): 6 Chair/[id number] Xfer(QC): 6 Car Transfer (QC): 6 Gait (FIM): 7 Gait distance (FIM): 3=150 ft Distance: 250' Walk 10 feet (QC): 6 Walk 10ft-Uneven Surface(QC): 6 Walk 50ft with 2 Turns (QC): 6 Walk 150 ft (QC): 6 Gait Level of Assist: 7 Gait Assistive Device: None, Cane Single Point Stairs (FIM): 6 # of Steps: 12 1 Step (curb) (QC): 6 4 Steps (QC): 6 12 Steps (QC): 6 Stairs Level Of Assist: 6 Picking up an Object (QC): 6 PT Plan Treatment/Plan Treatment Plan: Continue Plan of Care Treatment Plan: Bed Mobility, Education, Functional Activity Herb, Functional Strength, Group Therapy, Gait, Safety, Therapeutic Exercise, Transfers Treatment Duration: Sep 12, 2017 Frequency: At least 5 of 7 days/Wk (IRF) Estimated Hrs Per Day: 1.5 hours per day Patient and/or Family Agrees t: Yes Time/GCodes Time In: 1250 Time Out: 1320 Total Billed Treatment Time: 30 Total Billed Treatment 1 visit GT 15 min EX 15 min SOFIE SIMMONS PT Aug 19, 2017 13:48
[2017-08-19 18:06] VITALS: BP 102/67
[2017-08-19] MEDS: ATORVASTATIN 80 MG (LIPITOR) TABLET PO SCH (21:58)
[2017-08-20 05:03] LABS: HEMOGLOBIN 9.6 G/DL (11.5-16.0); MEAN PLATELET VOLUME 10.3 FL (7.4-10.4); RED BLOOD COUNT 3.04 10^6/uL (4.35-5.85); RED CELL DISTRIBUTION WIDTH 12.1 % (10.0-14.5); WHITE BLOOD COUNT 7.5 10^3/uL (4.3-11.0)
[2017-08-20 05:25] VITALS: BP 114/68
[2017-08-20 05:29] LABS: BUN/CREATININE RATIO 15; CALCIUM 8.7 MG/DL (8.5-10.1); CARBON DIOXIDE 28 MMOL/L (21-32); CHLORIDE 99 MMOL/L (98-107); GFR ESTIMATED > 60; GLUCOSE 118 MG/DL (70-105); MAGNESIUM 1.8 MG/DL (1.8-2.4); POTASSIUM 4.5 MMOL/L (3.6-5.0); SODIUM 134 MMOL/L (135-145)
[2017-08-20] MEDS: CHOLESTYRAMINE 4 GM (QUESTRAN LITE, PREVALITE) PKT PO SCH ×4 (06:00→20:11)
[2017-08-20] MEDS: LACTOBACILLUS Acidoph/Bulgar (LACTINEX/FLORANEX) TAB PO SCH ×3 (06:41→15:27)
[2017-08-20] MEDS: PANTOPRAZOLE 40 MG (PROTONIX) TAB PO SCH (06:41)
[2017-08-20] MEDS: FUROSEMIDE 40 MG (LASIX) TAB PO SCH ×2 (06:41→17:35)
--- NOTE | 2017-08-20 08:06 | Progress Note (SOAP) ---
Subjective Time Seen by Provider: 08:05 Subjective/Events-last exam Patient has trouble getting out of bed. Patient went to the bathroom last night and desaturated. Patient feel she is improving. Respiratory failure with hypoxia. Has ST elevated AL. Objective Exam Vital Signs Date Time Temp Pulse Resp B/P (MAP) Pulse Ox O2 Delivery O2 Flow Rate FiO2 08/20/17 06:48 High Flow N/C 3.00 08/20/17 05:25 97.6 87 22 114/68 (83) 93 Nasal Cannula 3.00 08/20/17 01:00 80 08/19/17 21:00 Nasal Cannula 3.00 08/19/17 19:00 90 08/19/17 18:06 98.8 83 20 102/67 (79) 99 Nasal Cannula 3.00 08/19/17 12:13 High Flow N/C 3.00 08/19/17 08:55 93 20 114/74 (87) 96 Nasal Cannula 3.00 08/19/17 08:35 Nasal Cannula 3.00 I & O 08/20/17 07:00 Intake Total 2000 ml Balance 2000 ml Capillary Refill : General Appearance: No Apparent Distress, WD/WN HEENT: Normal ENT Inspection Neck: Full Range of Motion, Normal Inspection Respiratory: No Accessory Muscle Use, No Respiratory Distress, Decreased Breath Sounds Cardiovascular: Regular Rate, Rhythm, No Murmur Results Lab Laboratory Tests 08/20/17 04:55: White Blood Count 7.5, Red Blood Count 3.04L, Hemoglobin 9.6L, Hematocrit 29L, Mean Corpuscular Volume 94, Mean Corpuscular Hemoglobin 32, Mean Corpuscular Hemoglobin Concent 34, Red Cell Distribution Width 12.1, Platelet Count 283, Mean Platelet Volume 10.3, Sodium Level 134L, Potassium Level 4.5, Chloride Level 99, Carbon Dioxide Level 28, Anion Gap 7, Blood Urea Nitrogen 9, Creatinine 0.60, Estimat Glomerular Filtration Rate > 60, BUN/Creatinine Ratio 15, Glucose Level 118H, Calcium Level 8.7, Magnesium Level 1.8 Assessment/Plan Assessment/Plan Assess & Plan/Chief Complaint Debility. Respiratory failure with hypoxia. History of acute AL Clinical Quality Measures DVT/VTE Risk/Contraindication: Risk Factor Score Per Nursin RFS Level Per Nursing on Admit: 2=Moderate ABRAM BRITT DO Aug 20, 2017 08:06
[2017-08-20 08:28] VITALS: BP 100/62
--- NOTE | 2017-08-20 08:35 | PM & R (SOAP) Progress Note ---
Subjective Time Seen by Provider: 07:50 Subjective/Events-last exam Patient was seen in her room this AM Patient Modified Independent for transfers Objective Exam Last Set of Vital Signs Vital Signs Date Time Temp Pulse Resp B/P (MAP) Pulse Ox O2 Delivery O2 Flow Rate FiO2 08/20/17 08:28 97 22 100/62 (75) 96 Nasal Cannula 3.00 08/20/17 05:25 97.6 Capillary Refill : I&O Intake and Output 08/20/17 00:00 Intake Total 1550 ml Balance 1550 ml Intake Oral 1550 ml # Voids 8 # Bowel Movements 2 General: Alert, Oriented X3, No Acute Distress HEENT: Atraumatic, PERRLA, EOMI, Mucous Memb Moist/[place] Neck: Supple, No JVD Lungs: Clear to Auscultation Heart: Regular Rate Abdomen: Normal Bowel Sounds, Soft, No Tenderness Extremities: No Edema Neuro: Other (generalized weakness) Results Lab Laboratory Tests 08/19/17 05:20: White Blood Count 6.3, Red Blood Count 3.02L, Hemoglobin 9.6L, Hematocrit 28L, Mean Corpuscular Volume 93, Mean Corpuscular Hemoglobin 32, Mean Corpuscular Hemoglobin Concent 34, Red Cell Distribution Width 11.9, Platelet Count 302, Mean Platelet Volume 10.7H, Sodium Level 135, Potassium Level 4.2, Chloride Level 98, Carbon Dioxide Level 29, Anion Gap 8, Blood Urea Nitrogen 8, Creatinine 0.60, Estimat Glomerular Filtration Rate > 60, BUN/Creatinine Ratio 13, Glucose Level 119H, Calcium Level 8.6, B-Type Natriuretic Peptide 512.3H 08/20/17 04:55: White Blood Count 7.5, Red Blood Count 3.04L, Hemoglobin 9.6L, Hematocrit 29L, Mean Corpuscular Volume 94, Mean Corpuscular Hemoglobin 32, Mean Corpuscular Hemoglobin Concent 34, Red Cell Distribution Width 12.1, Platelet Count 283, Mean Platelet Volume 10.3, Sodium Level 134L, Potassium Level 4.5, Chloride Level 99, Carbon Dioxide Level 28, Anion Gap 7, Blood Urea Nitrogen 9, Creatinine 0.60, Estimat Glomerular Filtration Rate > 60, BUN/Creatinine Ratio 15, Glucose Level 118H, Calcium Level 8.7, Magnesium Level 1.8 Assessment/Plan Assessment General debil s/p acute ST elevation RI involving the inferior wall associated with RV infarct Anemia Bilateral pleural effusions with 02 dependence Thrombocytopenia improved followed by hematology Post mi PAF resolved Acute diastolic CHF being treated by Cardiology Elevated Transaminases likely due to STEMI continue to monitor Plan Continue PT/OT Team Conference later today-See report for full functional update and POC and ELOS F/U with Cardiology and PCP MIRIAN PARKER MD Aug 20, 2017 08:35
[2017-08-20 08:36] VITALS: BP 103/59
[2017-08-20] MEDS: CLOPIDOGREL 75 MG (PLAVIX) TABLET PO SCH (08:43)
[2017-08-20] MEDS: ASPIRIN E.C. 81 MG (ECOTRIN) TAB PO SCH (08:43)
[2017-08-20 08:44] VITALS: BP 108/61
[2017-08-20] MEDS: meTOprolol TARTRATE 25 MG (LOPRESSOR) TABLET PO SCH (08:44)
--- NOTE | 2017-08-20 09:16 | Progress Note-Cardiology ---
Cardiology [facility] Progress Note Objective: I&O/Vital Signs Vital Sign - Last 12Hours 08/26/17 08/26/17 08/27/17 08/27/17 20:16 20:40 01:00 04:45 Temp 96.9 Pulse 74 74 Resp 20 B/P (MAP) 98/57 (71) Pulse Ox 96 94 O2 Delivery Nasal Cannula Nasal Cannula Nasal Cannula O2 Flow Rate 4.00 4.00 4.00 08/27/17 08/27/17 07:00 07:28 Pulse 88 Pulse Ox 91 O2 Delivery Nasal Cannula O2 Flow Rate 4.00 Intake and Output 08/27/17 00:00 Intake Total 940 ml Balance 940 ml Weight (Pounds): 135 Weight (Ounces): 1.6 Weight (Calculated Kilograms): [id number] Constitutional: AAO x 3 Respiratory: other (diminished bases bilat) Cardiovascular: regular rate-rhythm, S1 and S2 Gastrointestional: soft, round, audible bowel sounds Extremities: no lower extremity edema bilateral Neurologic/Psychiatric: grossly intact Skin: No rash, No ulcerations Results/Procedures: Labs Laboratory Tests 08/26/17 10:30: Erythrocyte Sedimentation Rate 94H, C-Reactive Protein High Sensitivity 0.35, Thyroid Stimulating Hormone (TSH) 5.77H A/P: Assessment: Status post acute ST elevation myocardial infarction involving the inferior wall associated with RV infarct. Coronary artery disease, status post cardiac catheterization done by Dr. Schumacher on 08/04/17: Mid vessel occlusion of the right coronary artery treated with overlapping stents (Alpine Xience 2.75 x 28 mm the distal part of which extends slightly into the right ventricular branch) and Alpine Xience 2.75 x 12 mm stent that was placed through the expanded struts of the previous stent and overlaps the previous stent to some degree. There is no significant residual stenosis in the right coronary artery and the flow was normal, but right ventricular branch was lost during the procedure due to infarct-related thrombus. A 90% to 95% stenosis of the proximal left circumflex artery, which was treated with stenting with Alpine Xience 2.25 x 12 mm stent with reduction of stenosis to 0% residual. The left anterior descending artery has diffuse mild -to-moderate disease Well preserved global left ventricular systolic function with ejection fraction 60%, postero-basal hypokinesis, no significant mitral regurgitation and mild elevation of left ventricular end-diastolic pressure on LHC of 08/04/17 Congestive heart failure, acute left ventricular diastolic dysfunction with right-sided heart failure Echo of 08/04/17: LVEF 55-60%,mild AI, grade I diastolic dysfunction of LV, PASP WNL Paroxysmal atrial fib/flutter, currently in sinus rhythm, had episodes of atrial fibrillation/flutter within 48 hours her myocardial infarction, has since been maintaining sinus rhythm - OAC has been withheld Anemia, stool for occult blood is negative. H&H are better Hypotension - likely d/t RV infarct, improved Shortness of breath, bilateral pleural effusion, pulmonary edema and questionable pneumonia, receiving diuretics and antibiotics, slow improvement. Thrombocytopenia, improved, unlikely to be HIT, followed and managed by Dr. Diaz TSH 0.26 on lab of - indicative of hyperthyroidism Elevated transaminases likely d/t STEMI, continue to monitor Plan: Continues to feel SOB and de-sat with exertion CXR today She has not been receiving evening dose of BB d/t documented "low BP". Therefore, we will reduce her dose to 12.5mg BID to try and facilitate BID dosing of BB. Continue PT/OT Continue current medication regimen Monitor lab closely ABHISHEK BANDA Aug 20, 2017 09:16
--- NOTE | 2017-08-20 11:20 | Diagnostic Imaging Report ---
INDICATION: Shortness of breath and pulmonary infiltrates. TIME OF EXAM: 10:29 AM Correlation is made with prior study from 08/18/2017. FINDINGS: The heart size is stable. Right hemidiaphragm is chronically elevated. Bilateral pulmonary infiltrates are stable. No effusion or pneumothorax is seen. IMPRESSION: Stable bilateral infiltrates when compared with exam 2 days earlier. Dictated by: Dictated on workstation # [id number]
--- NOTE | 2017-08-20 11:25 | Physical Therapy Daily Note ---
PT Daily Note-Current Subjective Pt sitting in recliner after just returning from restroom. Pt agrees to PT. Pain Location: No Pain Reported Mental Status Patient Orientation: Person, Place, Time, Situation Attachments: Oxygen (3L at rest & 4L during Therapy) Transfers Functional [place] Measure 0=Not Assessed/NA 4=Minimal Assistance 1=Total Assistance 5=Supervision or Setup 2=Maximal Assistance 6=Modified [place] 3=Moderate Assistance 7=Complete IndependenceIRFPAI Quality Coding Scale 6 Independent with activity with or without an assistive device 5 Patient requires set up or clean up by helper. Patient completes activity by themselves 4 Supervision or touching assist (CGA). [place] provide cues , steadying assist 3 The helper provides less than half the effort to complete the activity 2 The helper provides more than half the effort to complete the activity 1 Dependent. The helper does all the effort to complete an activity 7 Patient refused to complete or attempt activity 9 The patient did not perform the activity before the current illness or injury 88 Not attempted due to Medical conditions or safety concerns Scootin Sit to/from Stand: 6 Sit to Stand (QC): 6 Weight Bearing Right Lower Extremity: Right Full Weight Bearing Left Lower Extremity: Left Full Weight Bearing Gait Training Does the Patient Walk?: Yes Distance (FIM): 3=150 ft Distance: 150' Walk 10 feet (QC): 5 Walk 50 ft with 2 Turns(QC): 5 Walk 150 ft (QC): 5 Gait Level of Assist: 5 Gait Persons Needed: 1 Gait Assistive Device: FWW Pt has slow but steady gait, no LOB. Pt fatigues easily and gets SOA, rest break to recover. Wheelchair Training Does the Pt Use a Wheelchair?: No Exercises Seated Therapy Exercises: Ankle pumps, Long arc quads, Hip flexion, Kicking activity Seated Reps: 20 NuStep Minutes: 15 NuStep Workload: 3 Treatments Pt transfers from recliner to standing using FWW at Mod I. Pt ambulates in hallway using FWW at SBA due to SOA. Pt uses NuStep for 15m at Workload 3 followed by Seated Ex in chair. Pt's O2 level is monitored during tx but remains 92% after EX despite SOA. Pt returns to room to rest at end of tx with all needs met. Assessment Pt fatigues easily and SOA, needing recovery break. PT Supervisor Machine Workers Goals Mcc Goals PT Supervisor Machine Workers Goals Time Frame: Sep 12, 2017 Transfers (B,C,W/C) (FIM): 6 Sit to Lying (QC): 6 Lying-Sitting on Side/Bed(QC): 6 Sit to Stand (QC): 6 Rollin Roll Left to Right (QC): 6 Chair/[id number] Xfer(QC): 6 Car Transfer (QC): 6 Gait (FIM): 7 Gait distance (FIM): 3=150 ft Distance: 250' Walk 10 feet (QC): 6 Walk 10ft-Uneven Surface(QC): 6 Walk 50ft with 2 Turns (QC): 6 Walk 150 ft (QC): 6 Gait Level of Assist: 7 Gait Assistive Device: None, Cane Single Point Stairs (FIM): 6 # of Steps: 12 1 Step (curb) (QC): 6 4 Steps (QC): 6 12 Steps (QC): 6 Stairs Level Of Assist: 6 Picking up an Object (QC): 6 PT Plan Problem List Problem List: Activity Tolerance, Functional Strength, Gait Treatment/Plan Treatment Plan: Continue Plan of Care Treatment Plan: Bed Mobility, Education, Functional Activity Herb, Functional Strength, Group Therapy, Gait, Safety, Therapeutic Exercise, Transfers Treatment Duration: Sep 12, 2017 Frequency: At least 5 of 7 days/Wk (IRF) Estimated Hrs Per Day: 1.5 hours per day Patient and/or Family Agrees t: Yes Safety Risks/Education Patient Education: Gait Training, Correct Positioning, Safety Issues Teaching Recipient: Patient Teaching Methods: Discussion Response to Teaching: Verbalize Understanding Time/GCodes Time In: 1045 Time Out: 1145 Total Billed Treatment Time: 60 Total Billed Treatment 1, GT (15m), EX x2 (30m) & FA (15m) JULIO PADRON SUPERVISOR GAS METER REPAIR Aug 20, 2017 11:25
--- NOTE | 2017-08-20 11:51 | Occupational Ther Daily Note ---
OT Current Status-Daily Note Subjective Pt in bed, agrees to treatment. No c/o pain. Mental Status/Objective Functional [place] Measure 0=Not Assessed/NA 4=Minimal Assistance 1=Total Assistance 5=Supervision or Setup 2=Maximal Assistance 6=Modified [place] 3=Moderate Assistance 7=Complete [place] Attachments: Oxygen ADL-Treatment Pt requests shower this morning. Supine to sit with modified independence. Gait to restroom with FWW, no LOB noted. Transfer to walk in shower with bench with supervision using grab bar for safety. Pt doffed gown and socks without assistance. Pt required assist to wash hair secondary to fatigue, but was able to wash/dry all other areas after set up and increased time. Don pullover shirt with set up. Pt donned pants and socks with set up. Good balance while standing for pant hike. Pt combed hair with modified independence. Pt fatigues with ADLs and requires rest breaks throughout treatment. Transfer to chair FWW, assist only to manage O2 tubing. Functional [place] Measure 0=Not Assessed/NA 4=Minimal Assistance 1=Total Assistance 5=Supervision or Setup 2=Maximal Assistance 6=Modified [place] 3=Moderate Assistance 7=Complete IndependenceIRFPAI Quality Coding Scale 6 Independent with activity with or without an assistive device 5 Patient requires set up or clean up by helper. Patient completes activity by themselves 4 Supervision or touching assist (CGA). [place] provide cues , steadying assist 3 The helper provides less than half the effort to complete the activity 2 The helper provides more than half the effort to complete the activity 1 Dependent. The helper does all the effort to complete an activity 7 Patient refused to complete or attempt activity 9 The patient did not perform the activity before the current illness or injury 88 Not attempted due to Medical conditions or safety concerns Grooming (FIM): 6 Bathing (FIM): 5 Shower/Bathe Self (QC): 5 Upper Body (FIM): 5 Upper Body Dressing (QC): 5 Lower Body Dressing (FIM): 5 Lower Body Dressing (QC): 5 On/Off Footwear (QC): 5 Other Treatment Pt completed tabletop peg activity with bilateral UE to promote reaching, UE activity tolerance, and coordination/manipulation skills. Pt able to complete task without assistance, occasional rest breaks. Pt sitting in chair with needs met after session. OT Short Term Goals Short Term Goals 1=Demonstrate adherence to instructed precautions during ADL tasks. 2=Patient will verbalize/demonstrate understanding of assistive devices/ modifications for ADL. 3=Patient will improve strength/tolerance for activity to enable patient to perform ADL's. OT Sample Card Maker Goals Skilled Nursing Goals Time Frame: Sep 01, 2017 Eating (FIM): 6 Eating (QC): 6 Groomin Oral Hygiene (QC): 6 Bathing(FIM): 5 Shower/Bathe Self (QC): 5 Upper Body Dressing(FIM): 6 Upper Body Dressing (QC): 6 Lower Body Dressing(FIM): 6 Lower Body Dressing (QC): 6 On/Off Footwear (QC): 6 Toileting(FIM): 6 Toileting Hygiene (QC): 6 Transfers (B,C,W/C) (FIM): 6 Toilet/Commode Transfer(FIM): 6 Toilet/Commode Transfer (QC): 6 Shower Transfer(FIM): 5 Additional Goals: 1-Demonstrate ADL Tasks, 2-Verbalize Understanding, 3- ImproveStrength/Herb 1=Demonstrate adherence to instructed precautions during ADL tasks. 2=Patient will verbalize/demonstrate understanding of assistive devices/ modifications for ADL. 3=Patient will improve strength/tolerance for activity to enable patient to perform ADL's. OT Education/Plan Discharge Recommendations Plan/Recommendations: Continue POC Treatment Plan/Plan of Care Patient would benefit from OT for education, treatment and training to promote independence in ADL's, mobility, safety and/or upper extremity function for ADL' s. Plan of Care: ADL Retraining, Functional Mobility, UE Funct Exercise/Act Treatment Duration: Sep 01, 2017 Frequency: At least 5 of 7 days/Wk (IRF) Estimated Hrs Per Day: 1.5 hours per day Agreement: Yes Rehab Potential: Good Time/GCodes Start Time: 09:00 Stop Time: 10:00 Total Time Billed (hr/min): 60 Billed Treatment Time 1 visit, ADLx3(40minutes), FA(10minutes) TRICIA VARGAS OT Aug 20, 2017 11:51
--- NOTE | 2017-08-20 15:00 | Therapy Group Daily Note ---
Therapy Daily Group Note Exercises LE Seated Exercise, UE Exercise Other/Notes Pt attends PT/OT Group in Therapy Gym. Pt propelled self to Group in [facility]. Group consisted of Introduction (Name, Where are you from & Where is your favorite place besides your home?), Seated UE & LE EX using Yellow Theraband for added Resistance as well as Socialization Activity in Jeopardy Format. Pt actively participated in Group by verbally giving answers during Socialization Activity and Physically completing Ex when asked. Pt returned to room to rest at end of Group with all needs met. Start Time: 13:05 Stop Time: 14:10 Total Billed Treatment Time: 65 Total Billed Treatment 1, GRP VITOJULIO CONCILIATOR Aug 20, 2017 15:00
[2017-08-20 18:01] VITALS: BP 110/69
--- NOTE | 2017-08-20 18:43 | Progress Note-Cardiology ---
Cardiology SOAP Progress Note Subjective: Gets short of breath with little activity Denies cp or palp or syncope or significant leg swelling Objective: I&O/Vital Signs Vital Sign - Last 12Hours 08/20/17 08/20/17 08/20/17 08/20/17 06:48 07:00 08:28 08:36 Pulse 86 97 99 Resp 22 22 B/P (MAP) 100/62 (75) 103/59 (74) Pulse Ox 96 85 O2 Delivery High Flow N/C Nasal Cannula Nasal Cannula O2 Flow Rate 3.00 3.00 3.00 08/20/17 08/20/17 08/20/17 08/20/17 08:38 08:42 08:44 13:00 Pulse 98 86 Resp 20 B/P (MAP) 108/61 (77) Pulse Ox 98 O2 Delivery Nasal Cannula Nasal Cannula O2 Flow Rate 3.00 3.00 08/20/17 18:01 Temp 97.8 Pulse 88 Resp 20 B/P (MAP) 110/69 (83) Pulse Ox 96 O2 Delivery Nasal Cannula O2 Flow Rate 3.00 Intake and Output 08/20/17 00:00 Intake Total 1150 ml Balance 1150 ml Weight (Pounds): 135 Weight (Ounces): 1.6 Weight (Calculated Kilograms): [id number] Constitutional: AAO x 3 Respiratory: other (diminished bases bilat) Cardiovascular: regular rate-rhythm, S1 and S2 Gastrointestional: soft, round, audible bowel sounds Extremities: no lower extremity edema bilateral Neurologic/Psychiatric: grossly intact Skin: No rash, No ulcerations Results/Procedures: Labs Laboratory Tests 08/20/17 04:55: White Blood Count 7.5, Red Blood Count 3.04L, Hemoglobin 9.6L, Hematocrit 29L, Mean Corpuscular Volume 94, Mean Corpuscular Hemoglobin 32, Mean Corpuscular Hemoglobin Concent 34, Red Cell Distribution Width 12.1, Platelet Count 283, Mean Platelet Volume 10.3, Sodium Level 134L, Potassium Level 4.5, Chloride Level 99, Carbon Dioxide Level 28, Anion Gap 7, Blood Urea Nitrogen 9, Creatinine 0.60, Estimat Glomerular Filtration Rate > 60, BUN/Creatinine Ratio 15, Glucose Level 118H, Calcium Level 8.7, Magnesium Level 1.8 A/P: Assessment: Continuing exertional shortness of breath and hypoxemia Relatively low bp Status post acute ST elevation myocardial infarction involving the inferior wall associated with RV infarct. Coronary artery disease, status post cardiac catheterization done by Dr. Schumacher on 08/04/17: Mid vessel occlusion of the right coronary artery treated with overlapping stents (Alpine Xience 2.75 x 28 mm the distal part of which extends slightly into the right ventricular branch) and Alpine Xience 2.75 x 12 mm stent that was placed through the expanded struts of the previous stent and overlaps the previous stent to some degree. There is no significant residual stenosis in the right coronary artery and the flow was normal, but right ventricular branch was lost during the procedure due to infarct-related thrombus. A 90% to 95% stenosis of the proximal left circumflex artery, which was treated with stenting with Alpine Xience 2.25 x 12 mm stent with reduction of stenosis to 0% residual. The left anterior descending artery has diffuse mild -to-moderate disease Well preserved global left ventricular systolic function with ejection fraction 60%, postero-basal hypokinesis, no significant mitral regurgitation and mild elevation of left ventricular end-diastolic pressure on LHC of 08/04/17 Congestive heart failure, acute left ventricular diastolic dysfunction with right-sided heart failure Echo of 08/04/17: LVEF 55-60%,mild AI, grade I diastolic dysfunction of LV, PASP WNL Paroxysmal atrial fib/flutter, currently in sinus rhythm, had episodes of atrial fibrillation/flutter within 48 hours her myocardial infarction, has since been maintaining sinus rhythm - OAC has been withheld Anemia, stool for occult blood is negative. H&H are better Hypotension - likely d/t RV infarct, improved Shortness of breath, bilateral pleural effusion, pulmonary edema and questionable pneumonia, receiving diuretics and antibiotics, slow improvement. Thrombocytopenia, improved, unlikely to be HIT, followed and managed by Dr. Diaz TSH 0.26 on lab of - indicative of hyperthyroidism Elevated transaminases likely d/t STEMI, continue to monitor Plan: Management remains complex Continues to feel SOB and de-sat with exertion CXR today She has not been receiving evening dose of BB d/t documented "low BP". Therefore, we will reduce her dose to 12.5mg BID to try and facilitate BID dosing of BB. Continue PT/OT Continue current medication regimen Monitor labs closely I spoke with her in detail and outlined our treatment plan Keep in tele ECG today is showing evolving IPLMI LIZY SCHUMACHER MD FACP FAC CCDS Aug 20, 2017 18:43
[2017-08-20] MEDS: ATORVASTATIN 80 MG (LIPITOR) TABLET PO SCH (20:11)
[2017-08-20] MEDS ORDERED: meTOprolol TARTRATE 25 MG (LOPRESSOR) TABLET PO SCH (21:00)
[2017-08-20] MEDS: MENTHOL/ZINC OXIDE (CALMOSEPTINE) 113 GM TUBE TOP PRN (22:01)
[2017-08-21 04:34] VITALS: BP 110/60
[2017-08-21 05:19] LABS: HEMOGLOBIN 9.7 G/DL (11.5-16.0); MEAN PLATELET VOLUME 10.4 FL (7.4-10.4); RED BLOOD COUNT 3.08 10^6/uL (4.35-5.85); RED CELL DISTRIBUTION WIDTH 12.2 % (10.0-14.5); WHITE BLOOD COUNT 7.5 10^3/uL (4.3-11.0)
[2017-08-21] MEDS: LACTOBACILLUS Acidoph/Bulgar (LACTINEX/FLORANEX) TAB PO SCH ×3 (05:23→16:51)
[2017-08-21] MEDS: PANTOPRAZOLE 40 MG (PROTONIX) TAB PO SCH (05:23)
[2017-08-21] MEDS: FUROSEMIDE 40 MG (LASIX) TAB PO SCH ×2 (05:23→16:51)
[2017-08-21 05:49] LABS: ALANINE AMINOTRANSFERASE 14 U/L (0-55); ALKALINE PHOSPHATASE 61 U/L (40-136); BILIRUBIN,TOTAL 0.8 MG/DL (0.1-1.0); BUN/CREATININE RATIO 12; CALCIUM 8.6 MG/DL (8.5-10.1); CARBON DIOXIDE 29 MMOL/L (21-32); CHLORIDE 100 MMOL/L (98-107); CREATININE SERUM 0.58 MG/DL (0.60-1.30); GFR ESTIMATED > 60; GLUCOSE 115 MG/DL (70-105); MAGNESIUM 1.7 MG/DL (1.8-2.4); POTASSIUM 4.3 MMOL/L (3.6-5.0); SODIUM 136 MMOL/L (135-145); TOTAL PROTEIN 6.6 GM/DL (6.4-8.2)
[2017-08-21] MEDS: CHOLESTYRAMINE 4 GM (QUESTRAN LITE, PREVALITE) PKT PO SCH ×4 (06:13→21:28)
[2017-08-21] MEDS: ASPIRIN E.C. 81 MG (ECOTRIN) TAB PO SCH (07:44)
[2017-08-21] MEDS: CLOPIDOGREL 75 MG (PLAVIX) TABLET PO SCH (07:44)
--- NOTE | 2017-08-21 08:17 | Progress Note (SOAP) ---
Subjective Time Seen by Provider: 08:15 Subjective/Events-last exam Patient still has some shortness of breath when gets up from bed. Patient getting a echocardiogram today. Patient feel she is improving Objective Exam Vital Signs Date Time Temp Pulse Resp B/P (MAP) Pulse Ox O2 Delivery O2 Flow Rate FiO2 08/21/17 07:00 107 08/21/17 04:34 98.4 89 20 110/60 (77) 96 Nasal Cannula 3.00 08/21/17 01:00 80 08/20/17 21:15 Nasal Cannula 3.00 08/20/17 19:00 88 08/20/17 18:01 97.8 88 20 110/69 (83) 96 Nasal Cannula 3.00 08/20/17 13:00 86 08/20/17 08:44 108/61 (77) 08/20/17 08:42 Nasal Cannula 3.00 08/20/17 08:38 98 20 98 Nasal Cannula 3.00 08/20/17 08:36 99 22 103/59 (74) 85 Nasal Cannula 3.00 08/20/17 08:28 97 22 100/62 (75) 96 Nasal Cannula 3.00 I & O 08/21/17 07:00 Intake Total 1355 ml Balance 1355 ml Capillary Refill : General Appearance: No Apparent Distress Results Lab Laboratory Tests 08/21/17 05:00: White Blood Count 7.5, Red Blood Count 3.08L, Hemoglobin 9.7L, Hematocrit 29L, Mean Corpuscular Volume 94, Mean Corpuscular Hemoglobin 32, Mean Corpuscular Hemoglobin Concent 34, Red Cell Distribution Width 12.2, Platelet Count 263, Mean Platelet Volume 10.4, Sodium Level 136, Potassium Level 4.3, Chloride Level 100, Carbon Dioxide Level 29, Anion Gap 7, Blood Urea Nitrogen 7, Creatinine 0.58L, Estimat Glomerular Filtration Rate > 60, BUN/Creatinine Ratio 12, Glucose Level 115H, Calcium Level 8.6, Magnesium Level 1.7L, Total Bilirubin 0.8, Aspartate Amino Transf (AST/SGOT) 21, Alanine Aminotransferase ( ALT/SGPT) 14, Alkaline Phosphatase 61, Total Protein 6.6, Albumin 3.0L, Thyroid Stimulating Hormone (TSH) 3.84 08/21/17 05:10: B-Type Natriuretic Peptide 548.6H Assessment/Plan Assessment/Plan Assess & Plan/Chief Complaint Debility. Respiratory failure with hypoxia. History of acute NH. . 08/21/17. Debility. Short of breath. History of recent acute NH. Patient states she's feeling a little better Clinical Quality Measures DVT/VTE Risk/Contraindication: Risk Factor Score Per Nursin RFS Level Per Nursing on Admit: 2=Moderate ABRAM BRITT DO Aug 21, 2017 08:17
--- NOTE | 2017-08-21 09:18 | PM & R (SOAP) Progress Note ---
Subjective Time Seen by Provider: 07:55 Subjective/Events-last exam Patient was seen in her room this AM Patient Modified Independent for transfers Patient feeling less fatiqued Appreciate Cardiology note and orders Current labs reviewed Objective Exam Last Set of Vital Signs Vital Signs Date Time Temp Pulse Resp B/P (MAP) Pulse Ox O2 Delivery O2 Flow Rate FiO2 08/21/17 08:25 Nasal Cannula 3.00 08/21/17 07:00 107 08/21/17 04:34 98.4 20 110/60 (77) 96 Capillary Refill : I&O Intake and Output 08/21/17 00:00 Intake Total 1805 ml Balance 1805 ml Intake Oral 1805 ml # Voids 8 # Bowel Movements 1 General: Alert, Oriented X3, No Acute Distress HEENT: Atraumatic, PERRLA, EOMI, Mucous Memb Moist/[place] Neck: Supple, No JVD Lungs: Clear to Auscultation Heart: Regular Rate Abdomen: Normal Bowel Sounds, Soft, No Tenderness Extremities: No Edema Neuro: Other (generalized weakness) Results Lab Laboratory Tests 08/19/17 05:20: White Blood Count 6.3, Red Blood Count 3.02L, Hemoglobin 9.6L, Hematocrit 28L, Mean Corpuscular Volume 93, Mean Corpuscular Hemoglobin 32, Mean Corpuscular Hemoglobin Concent 34, Red Cell Distribution Width 11.9, Platelet Count 302, Mean Platelet Volume 10.7H, Sodium Level 135, Potassium Level 4.2, Chloride Level 98, Carbon Dioxide Level 29, Anion Gap 8, Blood Urea Nitrogen 8, Creatinine 0.60, Estimat Glomerular Filtration Rate > 60, BUN/Creatinine Ratio 13, Glucose Level 119H, Calcium Level 8.6, B-Type Natriuretic Peptide 512.3H 08/20/17 04:55: White Blood Count 7.5, Red Blood Count 3.04L, Hemoglobin 9.6L, Hematocrit 29L, Mean Corpuscular Volume 94, Mean Corpuscular Hemoglobin 32, Mean Corpuscular Hemoglobin Concent 34, Red Cell Distribution Width 12.1, Platelet Count 283, Mean Platelet Volume 10.3, Sodium Level 134L, Potassium Level 4.5, Chloride Level 99, Carbon Dioxide Level 28, Anion Gap 7, Blood Urea Nitrogen 9, Creatinine 0.60, Estimat Glomerular Filtration Rate > 60, BUN/Creatinine Ratio 15, Glucose Level 118H, Calcium Level 8.7, Magnesium Level 1.8 08/21/17 05:00: White Blood Count 7.5, Red Blood Count 3.08L, Hemoglobin 9.7L, Hematocrit 29L, Mean Corpuscular Volume 94, Mean Corpuscular Hemoglobin 32, Mean Corpuscular Hemoglobin Concent 34, Red Cell Distribution Width 12.2, Platelet Count 263, Mean Platelet Volume 10.4, Sodium Level 136, Potassium Level 4.3, Chloride Level 100, Carbon Dioxide Level 29, Anion Gap 7, Blood Urea Nitrogen 7, Creatinine 0.58L, Estimat Glomerular Filtration Rate > 60, BUN/Creatinine Ratio 12, Glucose Level 115H, Calcium Level 8.6, Magnesium Level 1.7L, Total Bilirubin 0.8, Aspartate Amino Transf (AST/SGOT) 21, Alanine Aminotransferase ( ALT/SGPT) 14, Alkaline Phosphatase 61, Total Protein 6.6, Albumin 3.0L, Thyroid Stimulating Hormone (TSH) 3.84 08/21/17 05:10: B-Type Natriuretic Peptide 548.6H Assessment/Plan Assessment General debil s/p acute ST elevation CA involving the inferior wall associated with RV infarct Anemia Bilateral pleural effusions with 02 dependence Thrombocytopenia improved followed by hematology Post mi PAF resolved Acute diastolic CHF being treated by Cardiology Elevated Transaminases likely due to STEMI continue to monitor Plan Continue PT/OT Team Conference held yesterday-See report for full functional update and POC and ELOS F/U with Cardiology and PCP MIRIAN PARKER MD Aug 21, 2017 09:18
--- NOTE | 2017-08-21 09:46 | Occupational Ther Daily Note ---
OT Current Status-Daily Note Subjective Pt. states that she feels tired, but no pain reported. Appearance Pt. up in her chair. Declines showering today but agrees to get dressed. Mental Status/Objective Patient Orientation: Person, Place, Time, Situation Functional [place] Measure 0=Not Assessed/NA 4=Minimal Assistance 1=Total Assistance 5=Supervision or Setup 2=Maximal Assistance 6=Modified [place] 3=Moderate Assistance 7=Complete [place] ADL-Treatment Functional [place] Measure 0=Not Assessed/NA 4=Minimal Assistance 1=Total Assistance 5=Supervision or Setup 2=Maximal Assistance 6=Modified [place] 3=Moderate Assistance 7=Complete IndependenceIRFPAI Quality Coding Scale 6 Independent with activity with or without an assistive device 5 Patient requires set up or clean up by helper. Patient completes activity by themselves 4 Supervision or touching assist (CGA). [place] provide cues , steadying assist 3 The helper provides less than half the effort to complete the activity 2 The helper provides more than half the effort to complete the activity 1 Dependent. The helper does all the effort to complete an activity 7 Patient refused to complete or attempt activity 9 The patient did not perform the activity before the current illness or injury 88 Not attempted due to Medical conditions or safety concerns Upper Body (FIM): 5 (set up) Upper Body Dressing (QC): 5 (set up) Lower Body Dressing (FIM): 5 (set up) Lower Body Dressing (QC): 5 On/Off Footwear (QC): 5 Toileting (FIM): 5 (set up) Toileting Hygiene (QC): 5 Transfers (B, C, W/C) (FIM): 5 (Pt. able to ambulate with oxygen and SBA to therapy gym.) Toilet/Commode Transfer (FIM): 5 Toilet Transfer (QC): 5 Other Treatment o2 sats monitored throughout treatment. Sats at 95% for most of it, but at one point did dip to 88%. Oxygen turned up to 4 L and pt. came back to 95%. Pt. encouraged to take deep breaths. Completed UE fine motor and endurance tasks with nut/bolt activity, arm arc activity, and peg activity. Pt. does require increased time due to fatigue. All needs met back in room. Education OT Patient Education: Modified ADL techniques, Progress toward Goal/Update tx plan, Purpose of tx/functional activities, Reviewed precautions, Rehab process, Transfer techniques Teaching Recipient: Patient Teaching Methods: Demonstration, Discussion Response to Teaching: Verbalize Understanding, Return Demonstration OT Short Term Goals Short Term Goals 1=Demonstrate adherence to instructed precautions during ADL tasks. 2=Patient will verbalize/demonstrate understanding of assistive devices/ modifications for ADL. 3=Patient will improve strength/tolerance for activity to enable patient to perform ADL's. OT Recycling Collections Driver Goals [facility] Goals Time Frame: Sep 01, 2017 Eating (FIM): 6 Eating (QC): 6 Groomin Oral Hygiene (QC): 6 Bathing(FIM): 5 Shower/Bathe Self (QC): 5 Upper Body Dressing(FIM): 6 Upper Body Dressing (QC): 6 Lower Body Dressing(FIM): 6 Lower Body Dressing (QC): 6 On/Off Footwear (QC): 6 Toileting(FIM): 6 Toileting Hygiene (QC): 6 Transfers (B,C,W/C) (FIM): 6 Toilet/Commode Transfer(FIM): 6 Toilet/Commode Transfer (QC): 6 Shower Transfer(FIM): 5 Additional Goals: 1-Demonstrate ADL Tasks, 2-Verbalize Understanding, 3- ImproveStrength/Herb 1=Demonstrate adherence to instructed precautions during ADL tasks. 2=Patient will verbalize/demonstrate understanding of assistive devices/ modifications for ADL. 3=Patient will improve strength/tolerance for activity to enable patient to perform ADL's. OT Education/Plan Problem List/Assessment Assessment: Decreased Activ Tolerance, Impaired I ADL's Discharge Recommendations Plan/Recommendations: Continue POC Therapy D/C Recommendations: Home w/ Family Support, Occupational Therapy Home Care Treatment Plan/Plan of Care Treatment,Training & Education: Yes Patient would benefit from OT for education, treatment and training to promote independence in ADL's, mobility, safety and/or upper extremity function for ADL' s. Plan of Care: ADL Retraining, Functional Mobility, UE Funct Exercise/Act Treatment Duration: Sep 01, 2017 Frequency: At least 5 of 7 days/Wk (IRF) Estimated Hrs Per Day: 1.5 hours per day Agreement: Yes Rehab Potential: Good Time/GCodes Start Time: 08:30 Stop Time: 09:30 Total Time Billed (hr/min): 60 Billed Treatment Time 1, ADL x 30minutes, FA x 30minutes NACCARATO,MORGAN OT Aug 21, 2017 09:46
--- NOTE | 2017-08-21 09:57 | Progress Note-Cardiology ---
Cardiology SOAP Progress Note Subjective: Sitting up in the chair today. States she does not feel as well today as she did the previous day. Feels more SOB this morning. Feels a little weaker this morning. No c/o CP or palpitations. Objective: I&O/Vital Signs Vital Sign - Last 12Hours 08/21/17 08/21/17 08/21/17 04:34 07:00 08:25 Temp 98.4 Pulse 89 107 Resp 20 B/P (MAP) 110/60 (77) Pulse Ox 96 O2 Delivery Nasal Cannula Nasal Cannula O2 Flow Rate 3.00 3.00 Intake and Output 08/21/17 00:00 Intake Total 955 ml Balance 955 ml Weight (Pounds): 134 Weight (Ounces): 0.0 Weight (Calculated Kilograms): 60.336605 Constitutional: AAO x 3 Respiratory: other (diminished bases bilat) Cardiovascular: regular rate-rhythm, S1 and S2 Gastrointestional: soft, round, audible bowel sounds Extremities: no lower extremity edema bilateral Neurologic/Psychiatric: grossly intact Skin: No rash, No ulcerations Results/Procedures: Labs Laboratory Tests 08/21/17 05:00: White Blood Count 7.5, Red Blood Count 3.08L, Hemoglobin 9.7L, Hematocrit 29L, Mean Corpuscular Volume 94, Mean Corpuscular Hemoglobin 32, Mean Corpuscular Hemoglobin Concent 34, Red Cell Distribution Width 12.2, Platelet Count 263, Mean Platelet Volume 10.4, Sodium Level 136, Potassium Level 4.3, Chloride Level 100, Carbon Dioxide Level 29, Anion Gap 7, Blood Urea Nitrogen 7, Creatinine 0.58L, Estimat Glomerular Filtration Rate > 60, BUN/Creatinine Ratio 12, Glucose Level 115H, Calcium Level 8.6, Magnesium Level 1.7L, Total Bilirubin 0.8, Aspartate Amino Transf (AST/SGOT) 21, Alanine Aminotransferase ( ALT/SGPT) 14, Alkaline Phosphatase 61, Total Protein 6.6, Albumin 3.0L, Thyroid Stimulating Hormone (TSH) 3.84 08/21/17 05:10: B-Type Natriuretic Peptide 548.6H Procedures NAME: GRAYLEYLA [facility] REC#: [id number] PT STATUS: ADM IN : 1945 PHYSICIAN: ABHISHEK BANDA ADMIT DATE: 08/18/17/IRF Signed Date of Exam: 08/20/17 CHEST PA/LAT (2 VIEW) INDICATION: Shortness of breath and pulmonary infiltrates. TIME OF EXAM: 10:29 AM Correlation is made with prior study from 08/18/2017. FINDINGS: The heart size is stable. Right hemidiaphragm is chronically elevated. Bilateral pulmonary infiltrates are stable. No effusion or pneumothorax is seen. IMPRESSION: Stable bilateral infiltrates when compared with exam 2 days earlier. Dictated by: Dictated on workstation # [id number] Dict: 08/20/17 1025 Trans: 08/20/17 1154 Interpreted by: KOKO BENTON MD Electronically signed by: KOKO BENTON MD 08/20/17 1154 A/P: Assessment: Acute systolic and diastolic CHF Continuing exertional shortness of breath and hypoxemia Relatively low bp Status post acute ST elevation myocardial infarction involving the inferior wall associated with RV infarct. Coronary artery disease, status post cardiac catheterization done by Dr. Schumacher on 08/04/17: Mid vessel occlusion of the right coronary artery treated with overlapping stents (Alpine Xience 2.75 x 28 mm the distal part of which extends slightly into the right ventricular branch) and Alpine Xience 2.75 x 12 mm stent that was placed through the expanded struts of the previous stent and overlaps the previous stent to some degree. There is no significant residual stenosis in the right coronary artery and the flow was normal, but right ventricular branch was lost during the procedure due to infarct-related thrombus. A 90% to 95% stenosis of the proximal left circumflex artery, which was treated with stenting with Alpine Xience 2.25 x 12 mm stent with reduction of stenosis to 0% residual. The left anterior descending artery has diffuse mild -to-moderate disease Well preserved global left ventricular systolic function with ejection fraction 60%, postero-basal hypokinesis, no significant mitral regurgitation and mild elevation of left ventricular end-diastolic pressure on LHC of 08/04/17 Congestive heart failure, acute left ventricular diastolic dysfunction with right-sided heart failure Echo of 08/04/17: LVEF 55-60%,mild AI, grade I diastolic dysfunction of LV, PASP WNL Paroxysmal atrial fib/flutter, currently in sinus rhythm, had episodes of atrial fibrillation/flutter within 48 hours her myocardial infarction, has since been maintaining sinus rhythm - OAC has been withheld Anemia, stool for occult blood is negative. H&H are better Hypotension - likely d/t RV infarct, improved Shortness of breath, bilateral pleural effusion, pulmonary edema and questionable pneumonia, receiving diuretics and antibiotics, slow improvement. Thrombocytopenia, improved, unlikely to be HIT, followed and managed by Dr. Diaz TSH 0.26 on lab of - indicative of hyperthyroidism Elevated transaminases likely d/t STEMI, continue to monitor Plan: Management remains complex Continues to feel SOB and de-sat with exertion; feels more SOB this morning Elevated BNP, somewhat worse today - give additional diuretics Replace Mag Echocardiogram today Continue PT/OT Continue current medication regimen Monitor labs closely Keep on tele ECG of 08-20-17 is showing evolving IPLMI Physician Assessment Physician Assessment More short of breath. No cp or palp or syncope Lungs: good bilat AE; diminished at the bases Cor: reg Ext: no c/c/e A&R: * As documented in our note above that I updated (italics) and as noted below * Suspect heart failure has the basis of her symptoms. Oral metolazone and iv furosemide today * Replenish lytes and monitor labs * Repeat echo * I spoke with her, explained the rationale of cardiac treatment, and answered questions ABHISHEK BANDA Aug 21, 2017 09:57 LIZY SCHUMACHER MD [facility] Aug 21, 2017 15:12
[2017-08-21] MEDS ORDERED: KCL 20 MEQ TAB (K-DUR) PO NR (10:15)
[2017-08-21] MEDS ORDERED: MAGNESIUM OXIDE (MAG-OX)400 MG TAB PO NR (10:15)
[2017-08-21] MEDS ORDERED: FUROSEMIDE 40 MG/4 ML INJ (LASIX) IVP ONE (10:15)
[2017-08-21] MEDS ORDERED: METOLAZONE 5 MG (ZAROXOLYN) TAB PO NR (10:15)
[2017-08-21] MEDS ORDERED: FUROSEMIDE 40 MG/4 ML INJ (LASIX) IVP NR (10:15)
[2017-08-21] MEDS: MAGNESIUM 1 GM/100 ML IVPB 100 ML IV SCH ×2 (10:31→11:45)
[2017-08-21] MEDS: ENOXAPARIN 40 MG/0.4 ML (LOVENOX) SYR SC SCH (11:44)
--- NOTE | 2017-08-21 11:55 | Physical Therapy Daily Note ---
PT Daily Note-Current Subjective Pt sitting in recliner upon arrival. Pt agrees to PT. Pt reports SOA more this morning and ECHO found more fluid, lactics given. Pain Location: No Pain Reported Mental Status Patient Orientation: Person, Place, Time, Situation Attachments: Oxygen (3L at rest & 4L during tx.), IV Transfers Functional [place] Measure 0=Not Assessed/NA 4=Minimal Assistance 1=Total Assistance 5=Supervision or Setup 2=Maximal Assistance 6=Modified [place] 3=Moderate Assistance 7=Complete IndependenceIRFPAI Quality Coding Scale 6 Independent with activity with or without an assistive device 5 Patient requires set up or clean up by helper. Patient completes activity by themselves 4 Supervision or touching assist (CGA). [place] provide cues , steadying assist 3 The helper provides less than half the effort to complete the activity 2 The helper provides more than half the effort to complete the activity 1 Dependent. The helper does all the effort to complete an activity 7 Patient refused to complete or attempt activity 9 The patient did not perform the activity before the current illness or injury 88 Not attempted due to Medical conditions or safety concerns Scootin Sit to/from Stand: 6 Sit to Stand (QC): 6 Weight Bearing Right Lower Extremity: Right Full Weight Bearing Left Lower Extremity: Left Full Weight Bearing Gait Training Does the Patient Walk?: Yes Distance (FIM): 7=729-21 ft Distance: 60' Walk 10 feet (QC): 5 Walk 50 ft with 2 Turns(QC): 5 Gait Level of Assist: 5 Gait Persons Needed: 1 Gait Assistive Device: FWW Pt needs assistance managing O2 line & IV pole. Wheelchair Training Does the Pt Use a Wheelchair?: No Exercises Seated Therapy Exercises: Ankle pumps, Long arc quads, Hip flexion, Kicking activity Seated Reps: 20 Treatments Pt needs to use restroom so transfers from recliner to standing using FWW at Mod I. Pt ambulates using FWW at SBA for assistance with managing O2 line & IV pole. Pt able to complete pericare independently. Pt returns to recliner to rest and reports SOA. Pt completes Seated Ex in recliner. Pt needs to use restroom again then returns to recliner to rest at end of tx with all needs met. Assessment Current Status: Good Progress Pt struggles with SOA especially with increased fluid & increased need for restroom due to Lactics. PT Custodial Goals Custodial Goals PT Custodial Goals Time Frame: Sep 12, 2017 Transfers (B,C,W/C) (FIM): 6 Sit to Lying (QC): 6 Lying-Sitting on Side/Bed(QC): 6 Sit to Stand (QC): 6 Rollin Roll Left to Right (QC): 6 Chair/Jug-rt-Yemjr Xfer(QC): 6 Car Transfer (QC): 6 Gait (FIM): 7 Gait distance (FIM): 3=150 ft Distance: 250' Walk 10 feet (QC): 6 Walk 10ft-Uneven Surface(QC): 6 Walk 50ft with 2 Turns (QC): 6 Walk 150 ft (QC): 6 Gait Level of Assist: 7 Gait Assistive Device: None, Cane Single Point Stairs (FIM): 6 # of Steps: 12 1 Step (curb) (QC): 6 4 Steps (QC): 6 12 Steps (QC): 6 Stairs Level Of Assist: 6 Picking up an Object (QC): 6 PT Plan Problem List Problem List: Activity Tolerance, Safety Treatment/Plan Treatment Plan: Continue Plan of Care Treatment Plan: Bed Mobility, Education, Functional Activity Herb, Functional Strength, Group Therapy, Gait, Safety, Therapeutic Exercise, Transfers Treatment Duration: Sep 12, 2017 Frequency: At least 5 of 7 days/Wk (IRF) Estimated Hrs Per Day: 1.5 hours per day Patient and/or Family Agrees t: Yes Safety Risks/Education Patient Education: Gait Training, Transfer Techniques, Correct Positioning, Safety Issues Teaching Recipient: Patient Teaching Methods: Discussion Response to Teaching: Verbalize Understanding Time/GCodes Time In: 1045 Time Out: 1145 Total Billed Treatment Time: 60 Total Billed Treatment 1, FA x2 (30m) & EX x2 (30m) JULIO PADRON TRUCK LOADER Aug 21, 2017 11:55
--- NOTE | 2017-08-21 14:52 | Physical Therapy Daily Note ---
PT Daily Note-Current Subjective Agreeable to PT. Reports she is SOA today. Reports she had Lasix through her IV today. Transfers Functional [place] Measure 0=Not Assessed/NA 4=Minimal Assistance 1=Total Assistance 5=Supervision or Setup 2=Maximal Assistance 6=Modified [place] 3=Moderate Assistance 7=Complete IndependenceIRFPAI Quality Coding Scale 6 Independent with activity with or without an assistive device 5 Patient requires set up or clean up by helper. Patient completes activity by themselves 4 Supervision or touching assist (CGA). [place] provide cues , steadying assist 3 The helper provides less than half the effort to complete the activity 2 The helper provides more than half the effort to complete the activity 1 Dependent. The helper does all the effort to complete an activity 7 Patient refused to complete or attempt activity 9 The patient did not perform the activity before the current illness or injury 88 Not attempted due to Medical conditions or safety concerns Transfers (B, C, W/C) (FIM): 5 Sit to/from Stand: 5 Sit to stand 2 sets of 5 with SBA for functional strength and activity tolerance training. Weight Bearing Right Lower Extremity: Right Full Weight Bearing Left Lower Extremity: Left Full Weight Bearing Gait Training Does the Patient Walk?: Yes Gait (FIM): 5 Distance (FIM): 3=150 ft (x3 ) Gait Assistive Device: FWW Pt ambulates with FWW with slow gait pattern. Stair Training Stair Training: Handrails/: 2 handrails Stairs (FIM): 2 #of Steps: 8 Stairs: Pattern: Step to up/down 8 steps with SB-CGA. Treatments Gait, transfers and stair training. Rest breaks provided as needed. Monitored oxygen sats and they consistently stayed at 95% throughout her treatment. Assessment Current Status: Good Progress Pt is SOA today, but able to deep breathe to recover. Sats maintained at 95% throughout treatment. Tolerated treatment well. PT Water Resources Project Manager Goals Water Resources Project Manager Goals PT Detention Goals Time Frame: Sep 12, 2017 Transfers (B,C,W/C) (FIM): 6 Sit to Lying (QC): 6 Lying-Sitting on Side/Bed(QC): 6 Sit to Stand (QC): 6 Rollin Roll Left to Right (QC): 6 Chair/Eji-kc-Gfnqf Xfer(QC): 6 Car Transfer (QC): 6 Gait (FIM): 7 Gait distance (FIM): 3=150 ft Distance: 250' Walk 10 feet (QC): 6 Walk 10ft-Uneven Surface(QC): 6 Walk 50ft with 2 Turns (QC): 6 Walk 150 ft (QC): 6 Gait Level of Assist: 7 Gait Assistive Device: None, Cane Single Point Stairs (FIM): 6 # of Steps: 12 1 Step (curb) (QC): 6 4 Steps (QC): 6 12 Steps (QC): 6 Stairs Level Of Assist: 6 Picking up an Object (QC): 6 PT Plan Problem List Problem List: Activity Tolerance, Functional Strength, Safety Treatment/Plan Treatment Plan: Continue Plan of Care Treatment Plan: Bed Mobility, Education, Functional Activity Herb, Functional Strength, Group Therapy, Gait, Safety, Therapeutic Exercise, Transfers Treatment Duration: Sep 12, 2017 Frequency: At least 5 of 7 days/Wk (IRF) Estimated Hrs Per Day: 1.5 hours per day Patient and/or Family Agrees t: Yes Safety Risks/Education Patient Education: Safety Issues Teaching Recipient: Patient Teaching Methods: Discussion Response to Teaching: Verbalize Understanding Discharge Recommendations Therapy D/C Recommendations: Physical Therapy Home Care Time/GCodes Time In: 1300 Time Out: 1330 Total Billed Treatment Time: 30 Total Billed Treatment visit FA 30 PAOLA OLVERA PT Aug 21, 2017 14:52
--- NOTE | 2017-08-21 15:34 | Individualized Plan of Care ---
Individualized Plan of Care Rehab Nursing IPOC Order Admission Date Aug 18, 2017 at 11:23 Current Orders Orders Admission Arrival Bed Request (08/18/17 11:19) Ambulate TID (08/18/17 12:08) Sequential Compression Device ,20 (08/18/17 12:08) Dvt/Vte Risk - Notifiy Physici 08 (08/18/17 12:08) Cho 60g/M 1snack (16-2000 Daron) (08/18/17 Lunch) Patient Visit (08/18/17 ) Pt Eval Moderate Complexity (08/18/17 ) Gait Training, Ea 15 Min (08/18/17 ) Patient Visit (08/18/17 ) Therapeutic, Group (08/18/17 ) Patient Visit (08/18/17 ) Exercise Therap, Ea 15 Min (08/18/17 ) Gait Training, Ea 15 Min (08/18/17 ) Patient Visit (08/18/17 ) Speech Sound Lang Comp (08/18/17 ) Code/Resuscitation (08/18/17 17:58) Activity (08/18/17 17:58) Ambulate TID (08/18/17 17:58) Incentive Spirometry (Nursing) Q2H (08/18/17 17:58) Initiate Admission Nursing Pro .admission (08/18/17 17:58) Notify Physician: (08/18/17 17:58) Sequential Compression Device (08/18/17 17:58) Telemetry (08/18/17 17:58) Cho 60g/M 1snack (16-2000 Daron) (08/18/17 Dinner) Acetaminophen Tablet/Caplet (Tylenol T (08/18/17 18:00) Aspirin Enteric Coated Tablet (Ecotrin T (08/19/17 09:00) Atorvastatin Tablet (Lipitor Tablet) (08/18/17 21:00) Cholestyramine Lite Powder (Questran Lit (08/18/17 21:00) Famotidine Tablet (Pepcid Tablet) (08/18/17 18:00) Furosemide Tablet (Lasix Tablet) (08/19/17 07:00) Cbc No Diff (08/19/17 05:00) Basic Metabolic Panel (08/19/17 05:00) BNP (08/19/17 05:00) Furosemide Tablet (Lasix Tablet) (08/18/17 18:15) Consult Physician (08/18/17 20:07) Consult Physician (08/18/17 20:07) Clopidogrel Tablet (Plavix Tablet) (08/19/17 09:00) Hydrocortisone 2.5% Cream (Anusol-Hc 2.5 (08/18/17 20:30) Lactobacillus/[place] Tab (Lactinex (08/19/17 06:00) Loperamide Capsule (Imodium Capsule) (08/18/17 20:30) Menthol/Zinc Oxide Ointment (Calmoseptin (08/18/17 20:30) Metoprolol Tartrate (Ir) Tab (Lopressor (08/18/17 21:00) Pantoprazole Tablet (Protonix Tablet) (08/19/17 07:00) Basic Metabolic Panel (08/20/17 05:00) Cbc No Diff (08/20/17 05:00) Magnesium (08/20/17 05:00) Admission Order(Inpt,Obs,Sdc) (08/19/17 10:28) Pt Evaluate/Treat Request (08/19/17 10:28) Request Ot Evaluate & Treat (08/19/17 10:28) Request For Cognitive Services (08/19/17 10:28) 24 Hour Oxygen Rt-Rfs (08/19/17 12:13) Rt Request For Service (08/19/17 12:13) Patient Visit (08/19/17 ) Gait Training, Ea 15 Min (08/19/17 ) Exercise Therap, Ea 15 Min (08/19/17 ) Patient Visit (08/19/17 ) Exercise Therap, Ea 15 Min (08/19/17 ) Gait Training, Ea 15 Min (08/19/17 ) Rt Request For Service (08/20/17 08:49) Chest Pa/Lat (2 View) (08/20/17 09:10) Metoprolol Tartrate (Ir) Tab (Lopressor (08/20/17 21:00) Thyroid Stimulating Hormone (08/21/17 05:00) Metoprolol Succinate (Xl) Tab (Toprol Xl (08/21/17 09:00) Ekg Tracing (08/20/17 09:25) Comprehensive Metabolic Panel (08/21/17 05:00) Cbc No Diff (08/21/17 05:00) Magnesium (08/21/17 05:00) Echo W Doppler/Color Flow (08/21/17 06:00) BNP (08/21/17 05:00) Patient Visit (08/20/17 ) Gait Training, Ea 15 Min (08/20/17 ) Exercise Therap, Ea 15 Min (08/20/17 ) Functional Activities, Ea 15 (08/20/17 ) Therapeutic, Group (08/20/17 ) BNP (08/22/17 05:00) Basic Metabolic Panel (08/22/17 05:00) Magnesium (08/22/17 05:00) Magnesium Oxide Tablet (Mag Ox Tablet) (08/21/17 18:00) Magnesium Oxide Tablet (Mag Ox Tablet) (08/21/17 10:15) Furosemide Injection (Lasix Injection) (08/21/17 10:15) Metolazone Tablet (Zaroxolyn Tablet) (08/21/17 10:15) Furosemide Injection (Lasix Injection) (08/21/17 10:15) Magnesium 1 Gm/100 Ml Ivpb (Magnesium [place] (08/21/17 10:15) Potassium Chloride (Tablet) (K Dur Table (08/21/17 10:15) Enoxaparin Injection (Lovenox Injection) (08/21/17 11:15) Other Nursing Orders: Monitor for urinary retention and constipation PT IPOC Problem List: Activity Tolerance, Functional Strength, Safety Treatment Plan: Continue Plan of Care Bed Mobility, Education, Functional Activity Herb, Functional Strength, Group Therapy, Gait, Safety, Therapeutic Exercise, Transfers Treatment Duration: Sep 12, 2017 Frequency: At least 5 of 7 days/Wk (IRF) Estimated Hrs Per Day: 1.5 hours per day OT IPOC Problems: Decreased Activ Tolerance, Impaired I ADL's OT Treatment, Training and Edu: Yes Plan of Care: ADL Retraining, Functional Mobility, UE Funct Exercise/Act Treatment Duration: Sep 01, 2017 Frequency: At least 5 of 7 days/Wk (IRF) Estimated Hrs Per Day: 1.[address] IPOC Speech Therapy Treatment Plan: Discontinue ST Treatment Duration: Aug 21, 2017 Frequency: Modified Program (IRF) Estimated Hrs Per Day: Other Drawing Tender/Case Mgmt Drawing Tender/Case Managemen: Discharge Planning, Patient/Family Counseling Physician IPOC Medical Issues being managed closely and that require the 24 hour availability of a physician: LILY NC involving the inferior wall of the rt ventricle Postmi Resp insuffiency on PAF treated DVT Prophylaxis on SCDS and Eliquis and Plavix IGC CODE 09 Etiologic DX NC of Inferior wall associated with RV infarct Medical Issues: Bowel/Bladder Function, DVT Prophylaxis, Falls Precautions, Other (List) (as per above) Brief Synthesis of Preadmission Screen, Post-Admission Evaluation, and Therapy Evaluations: 71 yo female with general debil and 02 dependence s/p NC as per above -Being follwed by PCP and Cardiology.Had been Independent prior to this Medical Prognosis: Good Anticipated Length of Stay: 09-01-17 Rehab Goals Modified Independent for adls and mobility skills with improved exercise tolerance for normal routine Anticipated discharge destinat: Home with spouse and [facility] MIRIAN PARKER MD Aug 21, 2017 15:34
[2017-08-21 17:28] VITALS: BP 112/60
[2017-08-21] MEDS ORDERED: MAGNESIUM OXIDE (MAG-OX)400 MG TAB PO SCH (18:00)
[2017-08-21] MEDS: ATORVASTATIN 80 MG (LIPITOR) TABLET PO SCH (20:32)
[2017-08-22 04:57] VITALS: BP 106/67
[2017-08-22] MEDS: LACTOBACILLUS Acidoph/Bulgar (LACTINEX/FLORANEX) TAB PO SCH ×3 (05:53→16:15)
[2017-08-22] MEDS: FUROSEMIDE 40 MG (LASIX) TAB PO SCH ×2 (05:53→16:15)
[2017-08-22] MEDS: PANTOPRAZOLE 40 MG (PROTONIX) TAB PO SCH (05:53)
[2017-08-22 06:25] LABS: BUN/CREATININE RATIO 9; CARBON DIOXIDE 31 MMOL/L (21-32); CHLORIDE 94 MMOL/L (98-107); CREATININE SERUM 0.66 MG/DL (0.60-1.30); GFR ESTIMATED > 60; GLUCOSE 109 MG/DL (70-105); POTASSIUM 4.2 MMOL/L (3.6-5.0); SODIUM 134 MMOL/L (135-145)
[2017-08-22] MEDS: CHOLESTYRAMINE 4 GM (QUESTRAN LITE, PREVALITE) PKT PO SCH ×4 (06:53→21:18)
--- NOTE | 2017-08-22 08:13 | Progress Note (SOAP) ---
Subjective Time Seen by Provider: 08:07 Subjective/Events-last exam Patient had a little better night than the night before. Patient had a less shortness of breath. Patient received IV Lasix yesterday besides the pill. BNP is little elevated yesterday compared to previously. Chest x-ray the same Objective Exam Vital Signs Date Time Temp Pulse Resp B/P (MAP) Pulse Ox O2 Delivery O2 Flow Rate FiO2 08/22/17 07:00 93 08/22/17 04:57 97.6 88 20 106/67 (80) 92 Nasal Cannula 3.00 08/22/17 01:00 76 08/21/17 20:53 Nasal Cannula 3.00 08/21/17 19:00 87 08/21/17 17:28 98.0 97 20 112/60 (77) 95 Nasal Cannula 3.00 08/21/17 13:00 92 08/21/17 08:25 Nasal Cannula 3.00 I & O 08/22/17 06:59 Intake Total 1195 ml Balance 1195 ml Capillary Refill : General Appearance: No Apparent Distress, WD/WN HEENT: Normal ENT Inspection Neck: Normal Inspection Respiratory: Other (Short of breath a little better today) Cardiovascular: Regular Rate, Rhythm Results Lab Laboratory Tests 08/22/17 05:55 Laboratory Tests 08/22/17 05:55: Sodium Level 134L, Potassium Level 4.2, Chloride Level 94L, Carbon Dioxide Level 31, Anion Gap 9, Blood Urea Nitrogen 6L, Creatinine 0.66, Estimat Glomerular Filtration Rate > 60, BUN/Creatinine Ratio 9, Glucose Level 109H, Calcium Level 9.0, Magnesium Level 2.0, B-Type Natriuretic Peptide 604.5H Assessment/Plan Assessment/Plan Assess & Plan/Chief Complaint Debility. Respiratory failure with hypoxia. History of acute ID. . 08/21/17. Debility. Short of breath. History of recent acute ID. Patient states she's feeling a little better. . . Debility. Short of breath. Recent ID. Patient received IV Lasix yesterday. BNP more elevated Clinical Quality Measures DVT/VTE Risk/Contraindication: Risk Factor Score Per Nursin RFS Level Per Nursing on Admit: 2=Moderate ABRAM BRITT DO Aug 22, 2017 08:12
[2017-08-22 08:39] VITALS: BP 111/63
[2017-08-22] MEDS: CLOPIDOGREL 75 MG (PLAVIX) TABLET PO SCH (08:40)
[2017-08-22] MEDS: ASPIRIN E.C. 81 MG (ECOTRIN) TAB PO SCH (08:40)
--- NOTE | 2017-08-22 09:44 | Occupational Ther Daily Note ---
OT Current Status-Daily Note Subjective Pt. reports no pain. States that she slept better last night. Appearance Pt. up in chair. Agrees to shower. Mental Status/Objective Patient Orientation: Person, Place, Time, Situation Functional [place] Measure 0=Not Assessed/NA 4=Minimal Assistance 1=Total Assistance 5=Supervision or Setup 2=Maximal Assistance 6=Modified [place] 3=Moderate Assistance 7=Complete [place] Attachments: IV, Oxygen ADL-Treatment Functional [place] Measure 0=Not Assessed/NA 4=Minimal Assistance 1=Total Assistance 5=Supervision or Setup 2=Maximal Assistance 6=Modified [place] 3=Moderate Assistance 7=Complete IndependenceIRFPAI Quality Coding Scale 6 Independent with activity with or without an assistive device 5 Patient requires set up or clean up by helper. Patient completes activity by themselves 4 Supervision or touching assist (CGA). [place] provide cues , steadying assist 3 The helper provides less than half the effort to complete the activity 2 The helper provides more than half the effort to complete the activity 1 Dependent. The helper does all the effort to complete an activity 7 Patient refused to complete or attempt activity 9 The patient did not perform the activity before the current illness or injury 88 Not attempted due to Medical conditions or safety concerns Grooming (FIM): 5 (Set up. Pt. requires encouragement at times to comb her own hair.) Bathing (FIM): 5 (SBA in shower to wash self.) Shower/Bathe Self (QC): 4 Upper Body (FIM): 5 Upper Body Dressing (QC): 4 Lower Body Dressing (FIM): 5 Lower Body Dressing (QC): 5 On/Off Footwear (QC): 5 Toileting (FIM): 5 Toileting Hygiene (QC): 5 Transfers (B, C, W/C) (FIM): 5 Toilet/Commode Transfer (FIM): 5 Toilet Transfer (QC): 5 Shower Transfer(FIM): 5 Other Treatment After shower, pt. dressed and then ambulated to therapy gym. Pt. on 3 L 02. Demonstrates SOA. However, sats taken throughout and pt. at 95%-99%. Pt. tolerated 10 minutes on armbike with several brief rest breaks. Tolerated treatment well overall and ambulated back to room. Education OT Patient Education: Correct positioning, Modified ADL techniques, Progress toward Goal/Update tx plan, Purpose of tx/functional activities, Reviewed precautions, Rehab process, Transfer techniques Teaching Recipient: Patient Teaching Methods: Demonstration, Discussion Response to Teaching: Verbalize Understanding, Return Demonstration OT Short Term Goals Short Term Goals 1=Demonstrate adherence to instructed precautions during ADL tasks. 2=Patient will verbalize/demonstrate understanding of assistive devices/ modifications for ADL. 3=Patient will improve strength/tolerance for activity to enable patient to perform ADL's. OT Men'S Leather Dress Belt Maker Goals Men'S Leather Dress Belt Maker Goals Time Frame: Sep 01, 2017 Eating (FIM): 6 Eating (QC): 6 Groomin Oral Hygiene (QC): 6 Bathing(FIM): 5 Shower/Bathe Self (QC): 5 Upper Body Dressing(FIM): 6 Upper Body Dressing (QC): 6 Lower Body Dressing(FIM): 6 Lower Body Dressing (QC): 6 On/Off Footwear (QC): 6 Toileting(FIM): 6 Toileting Hygiene (QC): 6 Transfers (B,C,W/C) (FIM): 6 Toilet/Commode Transfer(FIM): 6 Toilet/Commode Transfer (QC): 6 Shower Transfer(FIM): 5 Additional Goals: 1-Demonstrate ADL Tasks, 2-Verbalize Understanding, 3- ImproveStrength/Herb 1=Demonstrate adherence to instructed precautions during ADL tasks. 2=Patient will verbalize/demonstrate understanding of assistive devices/ modifications for ADL. 3=Patient will improve strength/tolerance for activity to enable patient to perform ADL's. OT Education/Plan Problem List/Assessment Assessment: Decreased Activ Tolerance, Impaired I ADL's, Impaired Self-Care Skills Discharge Recommendations Plan/Recommendations: Continue POC Therapy D/C Recommendations: Home w/ Family Support, Occupational Therapy Home Care Treatment Plan/Plan of Care Treatment,Training & Education: Yes Patient would benefit from OT for education, treatment and training to promote independence in ADL's, mobility, safety and/or upper extremity function for ADL' s. Plan of Care: ADL Retraining, Functional Mobility, UE Funct Exercise/Act Treatment Duration: Sep 01, 2017 Frequency: At least 5 of 7 days/Wk (IRF) Estimated Hrs Per Day: 1.5 hours per day Agreement: Yes Rehab Potential: Good Time/GCodes Start Time: 08:30 Stop Time: 09:35 Total Time Billed (hr/min): 65 Billed Treatment Time 1, ADL x 45minutes, Ex x 20minutes MORGAN DIAZ OT Aug 22, 2017 09:44
--- NOTE | 2017-08-22 10:00 | PM & R (SOAP) Progress Note ---
Subjective Time Seen by Provider: 09:50 Subjective/Events-last exam Patient was seen in her room this AM Patient SBA for transfers Objective Exam Last Set of Vital Signs Vital Signs Date Time Temp Pulse Resp B/P (MAP) Pulse Ox O2 Delivery O2 Flow Rate FiO2 08/22/17 09:08 Nasal Cannula 3.00 08/22/17 08:39 87 111/63 (79) 08/22/17 04:57 97.6 20 92 Capillary Refill : I&O Intake and Output 08/22/17 00:00 Intake Total 1175 ml Balance 1175 ml Intake Oral 1175 ml # Voids 11 # Bowel Movements 1 General: Alert, Oriented X3, No Acute Distress HEENT: Atraumatic, PERRLA, EOMI, Mucous Memb Moist/[place] Neck: Supple, No JVD Lungs: Clear to Auscultation Heart: Regular Rate Abdomen: Normal Bowel Sounds, Soft, No Tenderness Extremities: No Edema Neuro: Other (generalized weakness) Results Lab Laboratory Tests 08/20/17 04:55: White Blood Count 7.5, Red Blood Count 3.04L, Hemoglobin 9.6L, Hematocrit 29L, Mean Corpuscular Volume 94, Mean Corpuscular Hemoglobin 32, Mean Corpuscular Hemoglobin Concent 34, Red Cell Distribution Width 12.1, Platelet Count 283, Mean Platelet Volume 10.3, Sodium Level 134L, Potassium Level 4.5, Chloride Level 99, Carbon Dioxide Level 28, Anion Gap 7, Blood Urea Nitrogen 9, Creatinine 0.60, Estimat Glomerular Filtration Rate > 60, BUN/Creatinine Ratio 15, Glucose Level 118H, Calcium Level 8.7, Magnesium Level 1.8 08/21/17 05:00: White Blood Count 7.5, Red Blood Count 3.08L, Hemoglobin 9.7L, Hematocrit 29L, Mean Corpuscular Volume 94, Mean Corpuscular Hemoglobin 32, Mean Corpuscular Hemoglobin Concent 34, Red Cell Distribution Width 12.2, Platelet Count 263, Mean Platelet Volume 10.4, Sodium Level 136, Potassium Level 4.3, Chloride Level 100, Carbon Dioxide Level 29, Anion Gap 7, Blood Urea Nitrogen 7, Creatinine 0.58L, Estimat Glomerular Filtration Rate > 60, BUN/Creatinine Ratio 12, Glucose Level 115H, Calcium Level 8.6, Magnesium Level 1.7L, Total Bilirubin 0.8, Aspartate Amino Transf (AST/SGOT) 21, Alanine Aminotransferase ( ALT/SGPT) 14, Alkaline Phosphatase 61, Total Protein 6.6, Albumin 3.0L, Thyroid Stimulating Hormone (TSH) 3.84 08/21/17 05:10: B-Type Natriuretic Peptide 548.6H 08/22/17 05:55: Sodium Level 134L, Potassium Level 4.2, Chloride Level 94L, Carbon Dioxide Level 31, Anion Gap 9, Blood Urea Nitrogen 6L, Creatinine 0.66, Estimat Glomerular Filtration Rate > 60, BUN/Creatinine Ratio 9, Glucose Level 109H, Calcium Level 9.0, Magnesium Level 2.0, B-Type Natriuretic Peptide 604.5H Assessment/Plan Assessment General debil s/p acute ST elevation CA involving the inferior wall associated with RV infarct Anemia Bilateral pleural effusions with 02 dependence Thrombocytopenia improved followed by hematology Post mi PAF resolved Acute diastolic CHF being treated by Cardiology Elevated Transaminases likely due to STEMI continue to monitor Plan Continue PT/OT Team Conference held 08-20-17 -See report for full functional update and POC and ELOS F/U with Cardiology and PCP MIRIAN PARKER MD Aug 22, 2017 10:00
[2017-08-22] MEDS: ENOXAPARIN 40 MG/0.4 ML (LOVENOX) SYR SC SCH (11:45)
--- NOTE | 2017-08-22 12:12 | Physical Therapy Daily Note ---
PT Daily Note-Current Subjective Pt sitting in recliner asleep upon arrival. Pt agrees to PT but reports feeling tired. Pain Location: No Pain Reported Mental Status Patient Orientation: Person, Place, Time, Situation Attachments: Oxygen (3L at rest & 4L during Therapy) Transfers Functional [place] Measure 0=Not Assessed/NA 4=Minimal Assistance 1=Total Assistance 5=Supervision or Setup 2=Maximal Assistance 6=Modified [place] 3=Moderate Assistance 7=Complete IndependenceIRFPAI Quality Coding Scale 6 Independent with activity with or without an assistive device 5 Patient requires set up or clean up by helper. Patient completes activity by themselves 4 Supervision or touching assist (CGA). [place] provide cues , steadying assist 3 The helper provides less than half the effort to complete the activity 2 The helper provides more than half the effort to complete the activity 1 Dependent. The helper does all the effort to complete an activity 7 Patient refused to complete or attempt activity 9 The patient did not perform the activity before the current illness or injury 88 Not attempted due to Medical conditions or safety concerns Scootin Sit to/from Stand: 6 Sit to Stand (QC): 6 Weight Bearing Right Lower Extremity: Right Full Weight Bearing Left Lower Extremity: Left Full Weight Bearing Gait Training Does the Patient Walk?: Yes Distance (FIM): 3=150 ft Distance: 150' Walk 10 feet (QC): 5 Walk 50 ft with 2 Turns(QC): 5 Walk 150 ft (QC): 5 Gait Level of Assist: 5 Gait Persons Needed: 1 Gait Assistive Device: FWW Pt walks with slow yonis, no LOB. Pt fatigues easily and pt's O2 drops to 85 % after working from Therapy Gym to room. This does not happen during EX though , just ambulation. Wheelchair Training Does the Pt Use a Wheelchair?: No Exercises Seated Therapy Exercises: Ankle pumps, Long arc quads, Hip flexion, Kicking activity, Hip abd/add Seated Reps: 20 NuStep Minutes: 10 NuStep Workload: 2 Treatments Pt transfers from recliner to standing using FWW at Mod I. Pt ambulates in hallway using FWW at SBA for fatigue and pt needing assistance managing O2 tank. Pt's O2 drop to 85% after walk so rest break given. Pt then uses NuStep for 10m at workload 2 followed by Seated Ex in chair. Pt returns to room to rest. Pt returns to recliner at end of tx with all needs met. Pt's O2 again drops after walk to room. Nurse notified. Assessment Pt's O2 is monitored throughout tx. Pt fatigues easy and gets SOA. PT Sheetfed Press Operator Goals Sheetfed Press Operator Goals PT Detention Goals Time Frame: Sep 12, 2017 Transfers (B,C,W/C) (FIM): 6 Sit to Lying (QC): 6 Lying-Sitting on Side/Bed(QC): 6 Sit to Stand (QC): 6 Rollin Roll Left to Right (QC): 6 Chair/Ena-jt-Cijsr Xfer(QC): 6 Car Transfer (QC): 6 Gait (FIM): 7 Gait distance (FIM): 3=150 ft Distance: 250' Walk 10 feet (QC): 6 Walk 10ft-Uneven Surface(QC): 6 Walk 50ft with 2 Turns (QC): 6 Walk 150 ft (QC): 6 Gait Level of Assist: 7 Gait Assistive Device: None, Cane Single Point Stairs (FIM): 6 # of Steps: 12 1 Step (curb) (QC): 6 4 Steps (QC): 6 12 Steps (QC): 6 Stairs Level Of Assist: 6 Picking up an Object (QC): 6 PT Plan Problem List Problem List: Activity Tolerance, Functional Strength, Safety, Gait Treatment/Plan Treatment Plan: Continue Plan of Care Treatment Plan: Bed Mobility, Education, Functional Activity Herb, Functional Strength, Group Therapy, Gait, Safety, Therapeutic Exercise, Transfers Treatment Duration: Sep 12, 2017 Frequency: At least 5 of 7 days/Wk (IRF) Estimated Hrs Per Day: 1.5 hours per day Patient and/or Family Agrees t: Yes Safety Risks/Education Patient Education: Gait Training, Correct Positioning, Safety Issues Teaching Recipient: Patient Teaching Methods: Discussion Response to Teaching: Verbalize Understanding Time/GCodes Time In: 1045 Time Out: 1145 Total Billed Treatment Time: 60 Total Billed Treatment 1, GT (20m), EX x2 (25m) & FA (15m) JULIO PADRON TICKET BROKER Aug 22, 2017 12:12
--- NOTE | 2017-08-22 12:37 | Occupational Ther Daily Note ---
OT Current Status-Daily Note Subjective No pain reported. Appearance Pt. agreed to work with OT. Mental Status/Objective Functional [place] Measure 0=Not Assessed/NA 4=Minimal Assistance 1=Total Assistance 5=Supervision or Setup 2=Maximal Assistance 6=Modified [place] 3=Moderate Assistance 7=Complete [place] ADL-Treatment Functional [place] Measure 0=Not Assessed/NA 4=Minimal Assistance 1=Total Assistance 5=Supervision or Setup 2=Maximal Assistance 6=Modified [place] 3=Moderate Assistance 7=Complete IndependenceIRFPAI Quality Coding Scale 6 Independent with activity with or without an assistive device 5 Patient requires set up or clean up by helper. Patient completes activity by themselves 4 Supervision or touching assist (CGA). [place] provide cues , steadying assist 3 The helper provides less than half the effort to complete the activity 2 The helper provides more than half the effort to complete the activity 1 Dependent. The helper does all the effort to complete an activity 7 Patient refused to complete or attempt activity 9 The patient did not perform the activity before the current illness or injury 88 Not attempted due to Medical conditions or safety concerns Transfers (B, C, W/C) (FIM): 5 (SBA to ambulate with walker to therapy gym.) Other Treatment Pt. tolerated treatment in therapy gym. Tolerated 15 minutes on armbike at min resistance. Required several brief rest breaks overall. Pt. on 3 L 02 throughout treatment. Ambulated back to room with all needs met. Education OT Patient Education: Correct positioning, Exercise program, Modified ADL techniques, Progress toward Goal/Update tx plan, Purpose of tx/functional activities, Reviewed precautions, Rehab process, Transfer techniques Teaching Recipient: Patient Teaching Methods: Demonstration, Discussion Response to Teaching: Verbalize Understanding, Return Demonstration OT Short Term Goals Short Term Goals 1=Demonstrate adherence to instructed precautions during ADL tasks. 2=Patient will verbalize/demonstrate understanding of assistive devices/ modifications for ADL. 3=Patient will improve strength/tolerance for activity to enable patient to perform ADL's. OT Wheel Cleaner Goals Skilled Nursing Goals Time Frame: Sep 01, 2017 Eating (FIM): 6 Eating (QC): 6 Groomin Oral Hygiene (QC): 6 Bathing(FIM): 5 Shower/Bathe Self (QC): 5 Upper Body Dressing(FIM): 6 Upper Body Dressing (QC): 6 Lower Body Dressing(FIM): 6 Lower Body Dressing (QC): 6 On/Off Footwear (QC): 6 Toileting(FIM): 6 Toileting Hygiene (QC): 6 Transfers (B,C,W/C) (FIM): 6 Toilet/Commode Transfer(FIM): 6 Toilet/Commode Transfer (QC): 6 Shower Transfer(FIM): 5 Additional Goals: 1-Demonstrate ADL Tasks, 2-Verbalize Understanding, 3- ImproveStrength/Herb 1=Demonstrate adherence to instructed precautions during ADL tasks. 2=Patient will verbalize/demonstrate understanding of assistive devices/ modifications for ADL. 3=Patient will improve strength/tolerance for activity to enable patient to perform ADL's. OT Education/Plan Problem List/Assessment Assessment: Decreased Activ Tolerance, Impaired I ADL's Discharge Recommendations Plan/Recommendations: Continue POC Therapy D/C Recommendations: Home w/ Family Support Treatment Plan/Plan of Care Treatment,Training & Education: Yes Patient would benefit from OT for education, treatment and training to promote independence in ADL's, mobility, safety and/or upper extremity function for ADL' s. Plan of Care: ADL Retraining, Functional Mobility, UE Funct Exercise/Act Treatment Duration: Sep 01, 2017 Frequency: At least 5 of 7 days/Wk (IRF) Estimated Hrs Per Day: 1.5 hours per day Agreement: Yes Rehab Potential: Good Time/GCodes Start Time: 13:00 Stop Time: 13:30 Total Time Billed (hr/min): 30 Billed Treatment Time 1, Ex x 2 This note reflects afternoon treatment performed on 08-21-17 MORGAN DIAZ OT Aug 22, 2017 12:37
--- NOTE | 2017-08-22 12:48 | Progress Note-Cardiology ---
Cardiology SOAP Progress Note Subjective: Exertional shortness of breath as before, but able to participate in PT/OT Denies cp or palp or syncope or leg swelling Objective: I&O/Vital Signs Vital Sign - Last 12Hours 08/22/17 08/22/17 08/22/17 08/22/17 01:00 04:57 07:00 08:39 Temp 97.6 Pulse 76 88 93 87 Resp 20 B/P (MAP) 106/67 (80) 111/63 (79) Pulse Ox 92 O2 Delivery Nasal Cannula O2 Flow Rate 3.00 08/22/17 08/22/17 09:08 10:26 O2 Delivery Nasal Cannula High Flow N/C O2 Flow Rate 3.00 3.00 Intake and Output 08/22/17 00:00 Intake Total 775 ml Balance 775 ml Weight (Pounds): 133 Weight (Ounces): 0.0 Weight (Calculated Kilograms): 60.556950 Constitutional: AAO x 3 Respiratory: other (diminished bases bilat) Cardiovascular: regular rate-rhythm, S1 and S2 Gastrointestional: soft, round, audible bowel sounds Extremities: no lower extremity edema bilateral Neurologic/Psychiatric: grossly intact Skin: No rash, No ulcerations Results/Procedures: Labs Laboratory Tests 08/22/17 05:55: Sodium Level 134L, Potassium Level 4.2, Chloride Level 94L, Carbon Dioxide Level 31, Anion Gap 9, Blood Urea Nitrogen 6L, Creatinine 0.66, Estimat Glomerular Filtration Rate > 60, BUN/Creatinine Ratio 9, Glucose Level 109H, Calcium Level 9.0, Magnesium Level 2.0, B-Type Natriuretic Peptide 604.5H A/P: Assessment: Bibasilar pulmonary infiltrates: CHF vs atelectasis vs pneumonia Acute diastolic CHF Echo of 08/21/17: LVEF 60-65%, grade I rouse dysfunction, no significant pericard eff or valvular heart disease, PASP 30 mmHg Status post acute ST elevation myocardial infarction involving the inferior wall associated with RV infarct. Coronary artery disease, status post cardiac catheterization done by Dr. Schumacher on 08/04/17: Mid vessel occlusion of the right coronary artery treated with overlapping stents (Alpine Xience 2.75 x 28 mm the distal part of which extends slightly into the right ventricular branch) and Alpine Xience 2.75 x 12 mm stent that was placed through the expanded struts of the previous stent and overlaps the previous stent to some degree. There is no significant residual stenosis in the right coronary artery and the flow was normal, but right ventricular branch was lost during the procedure due to infarct-related thrombus. A 90% to 95% stenosis of the proximal left circumflex artery, which was treated with stenting with Alpine Xience 2.25 x 12 mm stent with reduction of stenosis to 0% residual. The left anterior descending artery has diffuse mild -to-moderate disease Well preserved global left ventricular systolic function with ejection fraction 60%, postero-basal hypokinesis, no significant mitral regurgitation and mild elevation of left ventricular end-diastolic pressure on LHC of 08/04/17 Paroxysmal atrial fib/flutter, currently in sinus rhythm, had episodes of atrial fibrillation/flutter within 48 hours her myocardial infarction, has since been maintaining sinus rhythm - OAC has been withheld Anemia, stool for occult blood is negative. H&H are better Hypotension - likely d/t RV infarct, improved Thrombocytopenia, improved, unlikely to be HIT, followed and managed by Dr. Diaz TSH 0.26 on lab of 08-05-17 - suggestive of hyperthyroidism Elevated transaminases likely d/t STEMI, now back to normal Plan: Management remains complex Continue diuretic therapy Continue PT/OT. Also on therapy for pulm atelectasis Monitor to monitor labs Keep on tele I had a discussion with her today regarding her CV issues and results of f/u echo of 08/21/17 Lovenox (low dose) added for DVT prophylaxis LIZY SCHUMACHER MD FACP FAC CCDS Aug 22, 2017 12:48
--- NOTE | 2017-08-22 15:31 | Therapy Group Daily Note ---
Therapy Daily Group Note Patient Education Topic Other List Below (AD Equipment & ARU Description) Exercises LE Seated Exercise, UE Exercise Other/Notes Pt ambulated to PT/OT Group using FWW at [facility] on 4L O2. Group consisted of Introductions ( Name, Where you are from & Favorite Funny Joke/Story), Socialization, Description of ARU and how it works, Assistive Devices, where they can be purchased and how they are used at home or in the community as well as Seated UE & LE Exercise. Pt actively participated in Group by completing Exercises, Giving examples of funny stories and where she has found Assistive Devices. Pt returns to room at end of tx to rest in bed. Pt's O2 drops whenever pt ambulates but recovers after short rest break. Start Time: 13:00 Stop Time: 14:20 Total Billed Treatment Time: 80 Total Billed Treatment 1, GRP JULIO PADRON VISUAL EDUCATION DIRECTOR Aug 22, 2017 15:31
[2017-08-22] MEDS: KCL 10 MEQ TAB (MICRO K) PO SCH (16:15)
[2017-08-22 18:40] VITALS: BP 90/61
[2017-08-22] MEDS: ATORVASTATIN 80 MG (LIPITOR) TABLET PO SCH (20:14)
[2017-08-23] MEDS: FUROSEMIDE 40 MG (LASIX) TAB PO SCH (05:59)
[2017-08-23] MEDS: PANTOPRAZOLE 40 MG (PROTONIX) TAB PO SCH (05:59)
[2017-08-23] MEDS: LACTOBACILLUS Acidoph/Bulgar (LACTINEX/FLORANEX) TAB PO SCH ×3 (05:59→15:24)
[2017-08-23 06:00] VITALS: BP 111/70
[2017-08-23] MEDS: KCL 10 MEQ TAB (MICRO K) PO SCH (06:00)
[2017-08-23 06:38] LABS: BUN/CREATININE RATIO 15; CALCIUM 8.7 MG/DL (8.5-10.1); CARBON DIOXIDE 32 MMOL/L (21-32); CHLORIDE 94 MMOL/L (98-107); GFR ESTIMATED > 60; GLUCOSE 100 MG/DL (70-105); MAGNESIUM 1.7 MG/DL (1.8-2.4); POTASSIUM 3.5 MMOL/L (3.6-5.0); SODIUM 133 MMOL/L (135-145)
[2017-08-23] MEDS: CHOLESTYRAMINE 4 GM (QUESTRAN LITE, PREVALITE) PKT PO SCH ×4 (06:45→21:15)
[2017-08-23 08:48] VITALS: BP 98/64
[2017-08-23] MEDS: CLOPIDOGREL 75 MG (PLAVIX) TABLET PO SCH (08:49)
[2017-08-23] MEDS: ASPIRIN E.C. 81 MG (ECOTRIN) TAB PO SCH (08:49)
[2017-08-23] MEDS ORDERED: KCL 20 MEQ TAB (K-DUR) PO ONE (09:30)
[2017-08-23] MEDS ORDERED: MAGNESIUM 1 GM/100 ML IVPB 100 ML IV ONE (09:30)
[2017-08-23] MEDS: ENOXAPARIN 40 MG/0.4 ML (LOVENOX) SYR SC SCH (11:17)
--- NOTE | 2017-08-23 12:07 | Physical Therapy Daily Note ---
PT Daily Note-Current Subjective Report sshe is feeling SOA today. Transfers Functional [place] Measure 0=Not Assessed/NA 4=Minimal Assistance 1=Total Assistance 5=Supervision or Setup 2=Maximal Assistance 6=Modified [place] 3=Moderate Assistance 7=Complete IndependenceIRFPAI Quality Coding Scale 6 Independent with activity with or without an assistive device 5 Patient requires set up or clean up by helper. Patient completes activity by themselves 4 Supervision or touching assist (CGA). [place] provide cues , steadying assist 3 The helper provides less than half the effort to complete the activity 2 The helper provides more than half the effort to complete the activity 1 Dependent. The helper does all the effort to complete an activity 7 Patient refused to complete or attempt activity 9 The patient did not perform the activity before the current illness or injury 88 Not attempted due to Medical conditions or safety concerns Weight Bearing Right Lower Extremity: Right Full Weight Bearing Left Lower Extremity: Left Full Weight Bearing Treatments Pt is mod indep with transfers. She ambulated 200 ft x 2 with FWW with SBA. Oxygen in use during and on post treatment. Pt in room after visit with needs. met. Assessment Current Status: Good Progress PT Long-Term Goals Plaster Machine Tender Goals PT Plaster Machine Tender Goals Time Frame: Sep 12, 2017 Transfers (B,C,W/C) (FIM): 6 Sit to Lying (QC): 6 Lying-Sitting on Side/Bed(QC): 6 Sit to Stand (QC): 6 Rollin Roll Left to Right (QC): 6 Chair/Tve-kk-Eohqv Xfer(QC): 6 Car Transfer (QC): 6 Gait (FIM): 7 Gait distance (FIM): 3=150 ft Distance: 250' Walk 10 feet (QC): 6 Walk 10ft-Uneven Surface(QC): 6 Walk 50ft with 2 Turns (QC): 6 Walk 150 ft (QC): 6 Gait Level of Assist: 7 Gait Assistive Device: None, Cane Single Point Stairs (FIM): 6 # of Steps: 12 1 Step (curb) (QC): 6 4 Steps (QC): 6 12 Steps (QC): 6 Stairs Level Of Assist: 6 Picking up an Object (QC): 6 PT Plan Problem List Problem List: Activity Tolerance, Functional Strength Treatment/Plan Treatment Plan: Continue Plan of Care Treatment Plan: Bed Mobility, Education, Functional Activity Herb, Functional Strength, Group Therapy, Gait, Safety, Therapeutic Exercise, Transfers Treatment Duration: Sep 12, 2017 Frequency: At least 5 of 7 days/Wk (IRF) Estimated Hrs Per Day: 1.5 hours per day Patient and/or Family Agrees t: Yes Time/GCodes Time In: 1050 Time Out: 1105 Total Billed Treatment Time: 15 Total Billed Treatment visit GT 15 PAOLA OLVERA PT Aug 23, 2017 12:07
--- NOTE | 2017-08-23 12:39 | Progress Note-Standard ---
Standard Progress Note Progress Notes/Assess & Plan Date Seen 08/23/17 Time Seen by Provider: 12:10 Assess & Plan/Chief Complaint Patient doing well except for shortness of breath at times Oxygen is maintained Lasix and magnesium were managed by cardiology Denies any pain No fever, vital signs stable, pleasant, improved Regular rate and rhythm, clear to auscultation bilaterally except for crackles in the right lower lobe that appeared to be more pronounced No edema Assessment: Status post myocardial infarction Congestive heart failure Volume overload Status post pneumonia Chronic anemia of chronic illness Severe debility Plan: Monitor blood pressure Diuretics per cardiology Oxygen supplementation Monitor right lower lobe crackles closely Labs Laboratory Tests 08/22/17 05:55 08/23/17 05:20 ZHANNA CARMONA DO Aug 23, 2017 12:39
--- NOTE | 2017-08-23 13:56 | Progress Note-Cardiology ---
Cardiology SOAP Progress Note Subjective: Coughing spell earlier today, mostly dry No cp No shortness of breath at rest No palp Persistent malaise No leg swelling Objective: I&O/Vital Signs Vital Sign - Last 12Hours 08/23/17 08/23/17 08/23/17 08/23/17 06:00 07:00 08:29 08:48 Temp 96.9 Pulse 78 68 86 Resp 18 B/P (MAP) 111/70 (84) 98/64 (75) Pulse Ox 97 O2 Delivery Nasal Cannula High Flow N/C O2 Flow Rate 3.00 3.00 08/23/17 08/23/17 09:00 13:00 Pulse 84 O2 Delivery Nasal Cannula O2 Flow Rate 3.00 Intake and Output 08/23/17 00:00 Intake Total 700 ml Balance 700 ml Weight (Pounds): 131 Weight (Ounces): 12.8 Weight (Calculated Kilograms): 59.538420 Constitutional: AAO x 3 Respiratory: other (diminished bases bilat) Cardiovascular: regular rate-rhythm, S1 and S2 Gastrointestional: soft, round, audible bowel sounds Extremities: no lower extremity edema bilateral Neurologic/Psychiatric: grossly intact Skin: No rash, No ulcerations Results/Procedures: Labs Laboratory Tests 08/23/17 05:20: Sodium Level 133L, Potassium Level 3.5L, Chloride Level 94L, Carbon Dioxide Level 32, Anion Gap 7, Blood Urea Nitrogen 9, Creatinine 0.60, Estimat Glomerular Filtration Rate > 60, BUN/Creatinine Ratio 15, Glucose Level 100, Calcium Level 8.7, Magnesium Level 1.7L Laboratory Tests 08/22/17 05:55 08/23/17 05:20 A/P: Assessment: Elec abnon 08/23/17: hyponatremia, hypokalemia, hypomagnesemia, hypochloremia. This is likely due to diuretic therapy Bibasilar pulmonary infiltrates: CHF vs atelectasis vs pneumonia Acute diastolic CHF Echo of 08/21/17: LVEF 60-65%, grade I rouse dysfunction, no significant pericard eff or valvular heart disease, PASP 30 mmHg Status post acute ST elevation myocardial infarction involving the inferior wall associated with RV infarct. Coronary artery disease, status post cardiac catheterization done by Dr. Schumacher on 08/04/17: Mid vessel occlusion of the right coronary artery treated with overlapping stents (Alpine Xience 2.75 x 28 mm the distal part of which extends slightly into the right ventricular branch) and Alpine Xience 2.75 x 12 mm stent that was placed through the expanded struts of the previous stent and overlaps the previous stent to some degree. There is no significant residual stenosis in the right coronary artery and the flow was normal, but right ventricular branch was lost during the procedure due to infarct-related thrombus. A 90% to 95% stenosis of the proximal left circumflex artery, which was treated with stenting with Alpine Xience 2.25 x 12 mm stent with reduction of stenosis to 0% residual. The left anterior descending artery has diffuse mild -to-moderate disease Well preserved global left ventricular systolic function with ejection fraction 60%, postero-basal hypokinesis, no significant mitral regurgitation and mild elevation of left ventricular end-diastolic pressure on C of 08/04/17 Paroxysmal atrial fib/flutter, currently in sinus rhythm, had episodes of atrial fibrillation/flutter within 48 hours her myocardial infarction, has since been maintaining sinus rhythm - OAC has been withheld Anemia, stool for occult blood is negative. H&H are better Hypotension - likely d/t RV infarct, improved Thrombocytopenia, improved, unlikely to be HIT, followed and managed by Dr. Diaz TSH 0.26 on lab of 08-05-17 - suggestive of hyperthyroidism Elevated transaminases likely d/t STEMI, now back to normal Plan: Management remains complex Reduce diuretic therapy Replenish lytes today Monitor labs Continue PT/OT. Also on therapy for pulm atelectasis Keep on tele I discussed our treatment plan the rationale behind it with her LIZY SCHUMACHER MD FACP FAC CCDS Aug 23, 2017 13:55
[2017-08-23 17:17] VITALS: BP 96/66
[2017-08-23] MEDS: ATORVASTATIN 80 MG (LIPITOR) TABLET PO SCH (20:07)
[2017-08-24 06:01] VITALS: BP 100/66
[2017-08-24] MEDS: PANTOPRAZOLE 40 MG (PROTONIX) TAB PO SCH (06:22)
[2017-08-24] MEDS: LACTOBACILLUS Acidoph/Bulgar (LACTINEX/FLORANEX) TAB PO SCH ×3 (06:22→16:45)
[2017-08-24] MEDS: CHOLESTYRAMINE 4 GM (QUESTRAN LITE, PREVALITE) PKT PO SCH ×4 (06:22→21:16)
[2017-08-24] MEDS: CLOPIDOGREL 75 MG (PLAVIX) TABLET PO SCH (08:38)
[2017-08-24] MEDS: KCL 10 MEQ TAB (MICRO K) PO SCH (08:38)
[2017-08-24] MEDS: ASPIRIN E.C. 81 MG (ECOTRIN) TAB PO SCH (08:38)
[2017-08-24] MEDS: FUROSEMIDE 40 MG (LASIX) TAB PO SCH (08:38)
[2017-08-24] MEDS: MENTHOL/ZINC OXIDE (CALMOSEPTINE) 113 GM TUBE TOP PRN (08:45)
[2017-08-24] MEDS: ENOXAPARIN 40 MG/0.4 ML (LOVENOX) SYR SC SCH (11:34)
--- NOTE | 2017-08-24 11:51 | Progress Note-Standard ---
Standard Progress Note Progress Notes/Assess & Plan Date Seen 08/24/17 Time Seen by Provider: 11:30 Assess & Plan/Chief Complaint Patient doing well except for shortness of breath at times and this continues to be an issue Oxygen is maintained Lasix and magnesium were managed by cardiology Denies any pain Unsure if she will fully recover since the significant heart injury and CHF No fever, vital signs stable, pleasant, improved Regular rate and rhythm, clear to auscultation bilaterally except for crackles in the right lower lobe that appeared to be more pronounced No edema Assessment: Status post myocardial infarction Congestive heart failure Volume overload Status post pneumonia Chronic anemia of chronic illness Severe debility Plan: Monitor blood pressure Diuretics per cardiology Oxygen supplementation Monitor right lower lobe crackles closely Prognosis guarded Labs Laboratory Tests 08/23/17 05:20 ZHANNA CARMONA DO Aug 24, 2017 11:51
[2017-08-24] MEDS: RT-ALBUTEROL SULF 2.5 MG/3 ML PRE-MIX VIAL INH SCH ×2 (14:51→20:23)
--- NOTE | 2017-08-24 16:30 | Progress Note-Cardiology ---
Cardiology SOAP Progress Note Subjective: Shortness of breath somewhat better today Denies cp or palp or syncope Objective: I&O/Vital Signs Vital Sign - Last 12Hours 08/24/17 08/24/17 08/24/17 08/24/17 06:01 07:00 12:14 13:00 Temp 97.0 Pulse 81 72 89 Resp 18 B/P (MAP) 100/66 (77) Pulse Ox 93 O2 Delivery Nasal Cannula Nasal Cannula O2 Flow Rate 3.00 3.00 08/24/17 14:52 Pulse Ox 96 O2 Delivery Nasal Cannula O2 Flow Rate 3.00 Intake and Output 08/24/17 00:00 Intake Total 790 ml Balance 790 ml Weight (Pounds): 129 Weight (Ounces): 6.4 Weight (Calculated Kilograms): 58.454892 Constitutional: AAO x 3 Respiratory: other (bibasilar coarse crackles, somewhat more on the R) Cardiovascular: regular rate-rhythm, S1 and S2 Gastrointestional: No tender, soft, round, audible bowel sounds Extremities: No clubbing, No cyanosis, no lower extremity edema bilateral Neurologic/Psychiatric: grossly intact Skin: No rash on exposed areas, No ulcerations on exposed areas A/P: Assessment: Elec abnon 08/23/17: hyponatremia, hypokalemia, hypomagnesemia, hypochloremia. This is likely due to diuretic therapy Bibasilar pulmonary infiltrates: CHF vs atelectasis vs pneumonia Acute diastolic CHF Echo of 08/21/17: LVEF 60-65%, grade I rouse dysfunction, no significant pericard eff or valvular heart disease, PASP 30 mmHg Status post acute ST elevation myocardial infarction involving the inferior wall associated with RV infarct. Coronary artery disease, status post cardiac catheterization done by Dr. Schumacher on 08/04/17: Mid vessel occlusion of the right coronary artery treated with overlapping stents (Alpine Xience 2.75 x 28 mm the distal part of which extends slightly into the right ventricular branch) and Alpine Xience 2.75 x 12 mm stent that was placed through the expanded struts of the previous stent and overlaps the previous stent to some degree. There is no significant residual stenosis in the right coronary artery and the flow was normal, but right ventricular branch was lost during the procedure due to infarct-related thrombus. A 90% to 95% stenosis of the proximal left circumflex artery, which was treated with stenting with Alpine Xience 2.25 x 12 mm stent with reduction of stenosis to 0% residual. The left anterior descending artery has diffuse mild -to-moderate disease Well preserved global left ventricular systolic function with ejection fraction 60%, postero-basal hypokinesis, no significant mitral regurgitation and mild elevation of left ventricular end-diastolic pressure on C of 08/04/17 Paroxysmal atrial fib/flutter, currently in sinus rhythm, had episodes of atrial fibrillation/flutter within 48 hours her myocardial infarction, has since been maintaining sinus rhythm - OAC has been withheld Anemia, stool for occult blood is negative. H&H are better Hypotension - likely d/t RV infarct, improved Thrombocytopenia, improved, unlikely to be HIT, followed and managed by Dr. Diaz TSH 0.26 on lab of 08-05-17 - suggestive of hyperthyroidism Elevated transaminases likely d/t STEMI, now back to normal Plan: Continue current card regimen Repeat labs in LIZY Saenz MD FACP FAC CCDS Aug 24, 2017 16:30
[2017-08-24 17:28] VITALS: BP 99/65
[2017-08-24] MEDS: ATORVASTATIN 80 MG (LIPITOR) TABLET PO SCH (20:16)
[2017-08-25 06:00] VITALS: BP 93/65
[2017-08-25] MEDS: CHOLESTYRAMINE 4 GM (QUESTRAN LITE, PREVALITE) PKT PO SCH ×4 (06:23→21:16)
[2017-08-25] MEDS: PANTOPRAZOLE 40 MG (PROTONIX) TAB PO SCH (06:23)
[2017-08-25] MEDS: LACTOBACILLUS Acidoph/Bulgar (LACTINEX/FLORANEX) TAB PO SCH ×3 (06:23→16:57)
[2017-08-25 06:41] LABS: BASOPHILS % (AUTO) 1 % (0-10); EOSINOPHILS # (AUTO) 1.1 10^3/uL (0.0-0.3); EOSINOPHILS % (AUTO) 20 % (0-10); HEMATOCRIT 30 % (35-52); LYMPHOCYTES # (AUTO) 1.2 X 10^3 (1.0-4.0); LYMPHOCYTES % (AUTO) 22 % (12-44); MEAN CORPUSCULAR HEMOGLOBIN 31 PG (25-34); MEAN CORPUSCULAR HGB CONC 33 G/DL (32-36); MEAN CORPUSCULAR VOLUME 93 FL (80-99); MEAN PLATELET VOLUME 10.2 FL (7.4-10.4); MONOCYTES # (AUTO) 0.6 X 10^3 (0.0-1.0); MONOCYTES % (AUTO) 11 % (0-12); NEUTROPHILS # (AUTO) 2.6 X 10^3 (1.8-7.8); NEUTROPHILS % (AUTO) 46 % (42-75); PLATELET COUNT 236 10^3/uL (130-400); RED BLOOD COUNT 3.24 10^6/uL (4.35-5.85); RED CELL DISTRIBUTION WIDTH 12.4 % (10.0-14.5); WHITE BLOOD COUNT 5.5 10^3/uL (4.3-11.0)
[2017-08-25 06:55] LABS: BAND NEUTROPHILS 0 %; BASOPHILS % (MANUAL) 0 %; EOSINOPHILS % (MANUAL) 17 %; LYMPHOCYTES % (MANUAL) 16 %; MONOCYTES % (MANUAL) 9 %; NEUTROPHILS % (MANUAL) 58 %
[2017-08-25 06:56] LABS: POIKILOCYTOSIS SLIGHT; POLYCHROMASIA SLIGHT; TEAR DROP CELLS SLIGHT
[2017-08-25 07:17] LABS: ALANINE AMINOTRANSFERASE 15 U/L (0-55); ALBUMIN 3.2 GM/DL (3.2-4.5); ALKALINE PHOSPHATASE 58 U/L (40-136); BILIRUBIN,TOTAL 0.5 MG/DL (0.1-1.0); BUN/CREATININE RATIO 11; CALCIUM 8.7 MG/DL (8.5-10.1); CARBON DIOXIDE 30 MMOL/L (21-32); CHLORIDE 97 MMOL/L (98-107); CREATININE SERUM 0.61 MG/DL (0.60-1.30); GFR ESTIMATED > 60; GLUCOSE 111 MG/DL (70-105); MAGNESIUM 1.8 MG/DL (1.8-2.4); POTASSIUM 4.2 MMOL/L (3.6-5.0); SODIUM 133 MMOL/L (135-145); TOTAL PROTEIN 6.8 GM/DL (6.4-8.2)
[2017-08-25] MEDS: RT-ALBUTEROL SULF 2.5 MG/3 ML PRE-MIX VIAL INH SCH ×4 (07:25→19:56)
--- NOTE | 2017-08-25 08:50 | Progress Note (SOAP) ---
Subjective Time Seen by Provider: 08:45 Subjective/Events-last exam patient feels her shortness of breath is a little better with breathing treatments. Patient unable to walk a little further without getting short of breath. patient has to rest after she walks. patient feel she is improving Objective Exam Vital Signs Date Time Temp Pulse Resp B/P (MAP) Pulse Ox O2 Delivery O2 Flow Rate FiO2 08/25/17 07:25 95 Nasal Cannula 3.00 08/25/17 06:00 97.9 88 16 93/65 (74) 99 Nasal Cannula 3.00 3.00 08/25/17 01:00 75 08/24/17 21:00 Nasal Cannula 3.00 08/24/17 20:24 94 Nasal Cannula 3.00 08/24/17 19:00 92 08/24/17 17:28 98.3 88 16 99/65 (76) 97 Nasal Cannula 3.00 08/24/17 14:52 96 Nasal Cannula 3.00 08/24/17 13:00 89 08/24/17 12:14 Nasal Cannula 3.00 I & O 08/25/17 07:00 Intake Total 1660 ml Balance 1660 ml Capillary Refill : General Appearance: No Apparent Distress, WD/WN HEENT: Normal ENT Inspection Neck: Full Range of Motion, Normal Inspection Respiratory: No Accessory Muscle Use, No Respiratory Distress, Other (n oxygen) Cardiovascular: Regular Rate, Rhythm Results Lab Laboratory Tests 08/25/17 06:30: White Blood Count 5.5, Red Blood Count 3.24L, Hemoglobin 10.0L, Hematocrit 30L, Mean Corpuscular Volume 93, Mean Corpuscular Hemoglobin 31, Mean Corpuscular Hemoglobin Concent 33, Red Cell Distribution Width 12.4, Platelet Count 236, Mean Platelet Volume 10.2, Neutrophils (%) (Auto) 46, Lymphocytes (%) (Auto) 22 , Monocytes (%) (Auto) 11, Eosinophils (%) (Auto) 20H, Basophils (%) (Auto) 1, Neutrophils # (Auto) 2.6, Lymphocytes # (Auto) 1.2, Monocytes # (Auto) 0.6, Eosinophils # (Auto) 1.1H, Basophils # (Auto) 0.0, Neutrophils % (Manual) 58, Lymphocytes % (Manual) 16, Monocytes % (Manual) 9, Eosinophils % (Manual) 17, Basophils % (Manual) 0, Band Neutrophils 0, Polychromasia SLIGHT, Poikilocytosis SLIGHT, Tear Drop Cells SLIGHT, Sodium Level 133L, Potassium Level 4.2, Chloride Level 97L, Carbon Dioxide Level 30, Anion Gap 6, Blood Urea Nitrogen 7, Creatinine 0.61, Estimat Glomerular Filtration Rate > 60, BUN/ Creatinine Ratio 11, Glucose Level 111H, Calcium Level 8.7, Magnesium Level 1.8 , Total Bilirubin 0.5, Aspartate Amino Transf (AST/SGOT) 18, Alanine Aminotransferase (ALT/SGPT) 15, Alkaline Phosphatase 58, Total Protein 6.8, Albumin 3.2 Assessment/Plan Assessment/Plan Assess & Plan/Chief Complaint Debility. Respiratory failure with hypoxia. History of acute WI. . 08/21/17. Debility. Short of breath. History of recent acute WI. Patient states she's feeling a little better. . . Debility. Short of breath. Recent WI. Patient received IV Lasix yesterday. BNP more elevated. . 08/25/17. Debility. Shortness of breath. History of acute WI. Patient feels breathing treatments is helping some Clinical Quality Measures DVT/VTE Risk/Contraindication: Risk Factor Score Per Nursin RFS Level Per Nursing on Admit: 2=Moderate ABRAM BRITT DO Aug 25, 2017 08:49
[2017-08-25] MEDS: KCL 10 MEQ TAB (MICRO K) PO SCH (09:49)
[2017-08-25] MEDS: FUROSEMIDE 40 MG (LASIX) TAB PO SCH (09:49)
[2017-08-25] MEDS: CLOPIDOGREL 75 MG (PLAVIX) TABLET PO SCH (09:49)
[2017-08-25] MEDS: ASPIRIN E.C. 81 MG (ECOTRIN) TAB PO SCH (09:49)
--- NOTE | 2017-08-25 10:41 | Progress Note-Cardiology ---
Cardiology SOAP Progress Note Subjective: Continues to feel SOB with minimal exertion. No c/o CP or palpitations. No c/ o syncope or near syncope. Objective: I&O/Vital Signs Vital Sign - Last 12Hours 08/25/17 08/25/17 08/25/17 08/25/17 07:00 07:25 09:00 09:28 Pulse 82 Pulse Ox 95 92 O2 Delivery Nasal Cannula Nasal Cannula Nasal Cannula O2 Flow Rate 3.00 3.00 3.00 08/25/17 08/25/17 08/25/17 13:03 16:47 18:00 Temp 98.0 Pulse 101 83 Resp 18 B/P (MAP) 111/62 (78) Pulse Ox 98 99 O2 Delivery Nasal Cannula Nasal Cannula O2 Flow Rate 3.00 3.00 3.00 Intake and Output 08/25/17 00:00 Intake Total 800 ml Balance 800 ml Weight (Pounds): 131 Weight (Ounces): 4.0 Weight (Calculated Kilograms): 59.077739 Constitutional: AAO x 3 Respiratory: other (bibasilar coarse crackles, somewhat more on the R) Cardiovascular: regular rate-rhythm, S1 and S2 Gastrointestional: No tender, soft, round, audible bowel sounds Extremities: No clubbing, No cyanosis, no lower extremity edema bilateral Neurologic/Psychiatric: grossly intact Skin: No rash on exposed areas, No ulcerations on exposed areas Results/Procedures: Labs Laboratory Tests 08/25/17 06:30: White Blood Count 5.5, Red Blood Count 3.24L, Hemoglobin 10.0L, Hematocrit 30L, Mean Corpuscular Volume 93, Mean Corpuscular Hemoglobin 31, Mean Corpuscular Hemoglobin Concent 33, Red Cell Distribution Width 12.4, Platelet Count 236, Mean Platelet Volume 10.2, Neutrophils (%) (Auto) 46, Lymphocytes (%) (Auto) 22 , Monocytes (%) (Auto) 11, Eosinophils (%) (Auto) 20H, Basophils (%) (Auto) 1, Neutrophils # (Auto) 2.6, Lymphocytes # (Auto) 1.2, Monocytes # (Auto) 0.6, Eosinophils # (Auto) 1.1H, Basophils # (Auto) 0.0, Neutrophils % (Manual) 58, Lymphocytes % (Manual) 16, Monocytes % (Manual) 9, Eosinophils % (Manual) 17, Basophils % (Manual) 0, Band Neutrophils 0, Polychromasia SLIGHT, Poikilocytosis SLIGHT, Tear Drop Cells SLIGHT, Sodium Level 133L, Potassium Level 4.2, Chloride Level 97L, Carbon Dioxide Level 30, Anion Gap 6, Blood Urea Nitrogen 7, Creatinine 0.61, Estimat Glomerular Filtration Rate > 60, BUN/ Creatinine Ratio 11, Glucose Level 111H, Calcium Level 8.7, Magnesium Level 1.8 , Total Bilirubin 0.5, Aspartate Amino Transf (AST/SGOT) 18, Alanine Aminotransferase (ALT/SGPT) 15, Alkaline Phosphatase 58, Total Protein 6.8, Albumin 3.2 Laboratory Tests 08/25/17 06:30 A/P: Assessment: Bibasilar pulmonary infiltrates: CHF vs atelectasis vs pneumonia; unchanged on CT of 08/25/17 Acute diastolic CHF Echo of 08/21/17: LVEF 60-65%, grade I rouse dysfunction, no significant pericard eff or valvular heart disease, PASP 30 mmHg Status post acute [address] elevation myocardial infarction involving the inferior wall associated with RV infarct. Coronary artery disease, status post cardiac catheterization done by Dr. Schumacher on 08/04/17: Mid vessel occlusion of the right coronary artery treated with overlapping stents (Alpine Xience 2.75 x 28 mm the distal part of which extends slightly into the right ventricular branch) and Alpine Xience 2.75 x 12 mm stent that was placed through the expanded struts of the previous stent and overlaps the previous stent to some degree. There is no significant residual stenosis in the right coronary artery and the flow was normal, but right ventricular branch was lost during the procedure due to infarct-related thrombus. A 90% to 95% stenosis of the proximal left circumflex artery, which was treated with stenting with Alpine Xience 2.25 x 12 mm stent with reduction of stenosis to 0% residual. The left anterior descending artery has diffuse mild -to-moderate disease Well preserved global left ventricular systolic function with ejection fraction 60%, postero-basal hypokinesis, no significant mitral regurgitation and mild elevation of left ventricular end-diastolic pressure on [facility] of 08/04/17 Paroxysmal atrial fib/flutter, currently in sinus rhythm, had episodes of atrial fibrillation/flutter within 48 hours her myocardial infarction, has since been maintaining sinus rhythm - OAC has been withheld Anemia, stool for occult blood is negative. H&H are better Hypotension - likely d/t RV infarct, improved Thrombocytopenia, improved, unlikely to be HIT, followed and managed by Dr. Diaz TSH 0.26 on lab of 08-05-17 - suggestive of hyperthyroidism Elevated transaminases likely d/t STEMI, now back to normal Plan: Continue current card regimen Repeat labs in am Continue SOB, CT angio today Physician Assessment Physician Assessment Shortness of breath slightly better. Denies cp or palp or syncope Lungs: bibasilar crackles Cor: reg Ext: no c/c/e A&R * As documented in our note above that I updated (italics) and as noted below * I discussed the results of her CT with her and her . I also discussed it with Dr Moseley and will discuss it with the pulmonary service ABHISHEK BANDA CLOTH CUTTER Aug 25, 2017 10:41 LIZY SCHUMACHER MD [facility] Aug 25, 2017 18:55
[2017-08-25] MEDS ORDERED: NS 250 ML (IVPB) BAG IV ONE (10:45)
[2017-08-25] MEDS ORDERED: IOHEXOL 350 MG/ML 150 ML (OMNIPAQUE 350) VIAL IV ONE (10:45)
[2017-08-25] MEDS ORDERED: RECEIVED CONTRAST (Hold Metformin) IV SCH (11:00)
--- NOTE | 2017-08-25 11:46 | Diagnostic Imaging Report ---
PROCEDURE: CT angiography of the chest with contrast. TECHNIQUE: Multiple contiguous axial images were obtained through the chest after uneventful bolus administration of intravenous contrast. Reconstructed CTA MIP acquisitions were also performed. INDICATION: Shortness of breath and myocardial infarction. COMPARISON: Comparison made with prior examination 08/07/2017. FINDINGS: Note is again made of diffuse bilateral groundglass infiltrates. These are relatively unchanged when compared to prior examination. There is more coarse reticular infiltrates in the lung bases. The previously seen pleural effusions have resolved. There is no pneumothorax. The thoracic aorta is normal in caliber without evidence of dissection. There are no filling defects seen within the pulmonary arteries to suggest pulmonary embolism. There is cardiomegaly. The visualized intra-abdominal structures are unremarkable. There is mild thoracic spondylosis. IMPRESSION: 1. Persistent diffuse mixed interstitial alveolar and groundglass infiltrates in both lungs. Again, this may reflect pulmonary edema, pneumonia or atelectasis. The previously seen bilateral pleural effusions have resolved. 2. No evidence of aortic dissection or pulmonary embolism. 3. Cardiomegaly. 4. Mild thoracic spondylosis. Dictated by: Dictated on workstation # [id number]
--- NOTE | 2017-08-25 11:55 | Physical Therapy Daily Note ---
PT Daily Note-Current Subjective Pt. agrees to rx but states she is concerned she might be sent home tomorrow and really does not feel like she should as she is so SOA. Pt. using incentive spirometer upon entering room getting apparently very little volume. Pt. audibly SOB Pain Numeric Pain Scale: 0-No Pain Mental Status Patient Orientation: Normal For Age Attachments: Oxygen Transfers Functional Hardy Measure 0=Not Assessed/NA 4=Minimal Assistance 1=Total Assistance 5=Supervision or Setup 2=Maximal Assistance 6=Modified Hardy 3=Moderate Assistance 7=Complete IndependenceIRFPAI Quality Coding Scale 6 Independent with activity with or without an assistive device 5 Patient requires set up or clean up by helper. Patient completes activity by themselves 4 Supervision or touching assist (CGA). Dillon provide cues , steadying assist 3 The helper provides less than half the effort to complete the activity 2 The helper provides more than half the effort to complete the activity 1 Dependent. The helper does all the effort to complete an activity 7 Patient refused to complete or attempt activity 9 The patient did not perform the activity before the current illness or injury 88 Not attempted due to Medical conditions or safety concerns Transfers (B, C, W/C) (FIM): 6 Scootin Rollin Supine to/from Sit: 6 Sit to/from Stand: 6 Bed to/from Chair: 6 Weight Bearing Right Lower Extremity: Right Full Weight Bearing Left Lower Extremity: Left Full Weight Bearing Gait Training Does the Patient Walk?: Yes Gait (FIM): 5 Distance (FIM): 2=747-80 ft (60x4) Gait Level of Assist: 5 Gait Persons Needed: 1 Gait Assistive Device: FWW household exception, pt. needed instruction in O2 extended tubing management as she will likely use O2 at home. gait required short bouts as pt. needed rest breaks secondary to SOB Wheelchair Training Does the Pt Use a Wheelchair?: No Exercises Supine Ex: Ankle pumps, Quad Set, Heel Slides, Straight leg raise, Hip abd/add Supine Reps: 12 Seated Therapy Exercises: Ankle pumps, Sit to stand, Long arc quads, Hip flexion Seated Reps: 8 Treatments functional ]training in use of extended O2 tubing for safety with FWW Assessment Current Status: Fair Progress nurse communicates that pts chest CT indicates she may have PE. BP 112/72, HR 94, O2 sats 95%. but resp were 24 PT Plan Nurse Goals Plan Nurse Goals PT Custodial Goals Time Frame: Sep 12, 2017 Transfers (B,C,W/C) (FIM): 6 Sit to Lying (QC): 6 Lying-Sitting on Side/Bed(QC): 6 Sit to Stand (QC): 6 Rollin Roll Left to Right (QC): 6 Chair/[id number] Xfer(QC): 6 Car Transfer (QC): 6 Gait (FIM): 7 Gait distance (FIM): 3=150 ft Distance: 250' Walk 10 feet (QC): 6 Walk 10ft-Uneven Surface(QC): 6 Walk 50ft with 2 Turns (QC): 6 Walk 150 ft (QC): 6 Gait Level of Assist: 7 Gait Assistive Device: None, Cane Single Point Stairs (FIM): 6 # of Steps: 12 1 Step (curb) (QC): 6 4 Steps (QC): 6 12 Steps (QC): 6 Stairs Level Of Assist: 6 Picking up an Object (QC): 6 PT Plan Treatment/Plan Treatment Plan: Continue Plan of Care Treatment Plan: Bed Mobility, Education, Functional Activity Herb, Functional Strength, Group Therapy, Gait, Safety, Therapeutic Exercise, Transfers Treatment Duration: Sep 12, 2017 Frequency: At least 5 of 7 days/Wk (IRF) Estimated Hrs Per Day: 1.5 hours per day Patient and/or Family Agrees t: Yes Safety Risks/Education Patient Education: Gait Training, Transfer Techniques, Correct Positioning, Disease Process, Safety Issues Teaching Recipient: Patient Teaching Methods: Demonstration, Discussion Response to Teaching: Verbalize Understanding, Return Demonstration, Reinforcement Needed Time/GCodes Time In: 1100 Time Out: 1200 Total Billed Treatment Time: 60 Total Billed Treatment 1,EX20,FA15m,GT25m G Codes Necessary: BRET Villagomez ATTRACTIONS ASSOCIATE Aug 25, 2017 11:55
[2017-08-25] MEDS: ENOXAPARIN 40 MG/0.4 ML (LOVENOX) SYR SC SCH (12:07)
--- NOTE | 2017-08-25 13:57 | Occupational Ther Daily Note ---
OT Current Status-Daily Note Subjective No pain reported but pt. states that she is concerned about going home. Appearance Pt. up in chair. Agrees to shower. Mental Status/Objective Patient Orientation: Person, Place Functional [place] Measure 0=Not Assessed/NA 4=Minimal Assistance 1=Total Assistance 5=Supervision or Setup 2=Maximal Assistance 6=Modified [place] 3=Moderate Assistance 7=Complete [place] Attachments: IV, Oxygen ADL-Treatment Functional [place] Measure 0=Not Assessed/NA 4=Minimal Assistance 1=Total Assistance 5=Supervision or Setup 2=Maximal Assistance 6=Modified [place] 3=Moderate Assistance 7=Complete IndependenceIRFPAI Quality Coding Scale 6 Independent with activity with or without an assistive device 5 Patient requires set up or clean up by helper. Patient completes activity by themselves 4 Supervision or touching assist (CGA). [place] provide cues , steadying assist 3 The helper provides less than half the effort to complete the activity 2 The helper provides more than half the effort to complete the activity 1 Dependent. The helper does all the effort to complete an activity 7 Patient refused to complete or attempt activity 9 The patient did not perform the activity before the current illness or injury 88 Not attempted due to Medical conditions or safety concerns Grooming (FIM): 5 (Set up to comb hair.) Bathing (FIM): 5 (SBA. Pt. does ask OT to wash her hair for her. States, "I don't think my arms will hold on that long.") Shower/Bathe Self (QC): 4 Upper Body (FIM): 5 Upper Body Dressing (QC): 4 Lower Body Dressing (FIM): 5 Lower Body Dressing (QC): 4 On/Off Footwear (QC): 4 Toileting (FIM): 6 Toileting Hygiene (QC): 6 Transfers (B, C, W/C) (FIM): 6 Toilet/Commode Transfer (FIM): 6 Toilet Transfer (QC): 6 Shower Transfer(FIM): 5 Other Treatment Pt. agrees to shower. Reports SOA. Pt. requires increased time, often asking for a drink of water or sitting to catch her breathe. Pt. on 3 L 02, and often recovers well. Education OT Patient Education: Correct positioning, Modified ADL techniques, Progress toward Goal/Update tx plan, Purpose of tx/functional activities, Reviewed precautions, Rehab process, Transfer techniques Teaching Recipient: Patient Teaching Methods: Demonstration, Discussion Response to Teaching: Verbalize Understanding, Return Demonstration OT Short Term Goals Short Term Goals 1=Demonstrate adherence to instructed precautions during ADL tasks. 2=Patient will verbalize/demonstrate understanding of assistive devices/ modifications for ADL. 3=Patient will improve strength/tolerance for activity to enable patient to perform ADL's. OT Detention Goals [facility] Director Goals Time Frame: Sep 01, 2017 Eating (FIM): 6 Eating (QC): 6 Groomin Oral Hygiene (QC): 6 Bathing(FIM): 5 Shower/Bathe Self (QC): 5 Upper Body Dressing(FIM): 6 Upper Body Dressing (QC): 6 Lower Body Dressing(FIM): 6 Lower Body Dressing (QC): 6 On/Off Footwear (QC): 6 Toileting(FIM): 6 Toileting Hygiene (QC): 6 Transfers (B,C,W/C) (FIM): 6 Toilet/Commode Transfer(FIM): 6 Toilet/Commode Transfer (QC): 6 Shower Transfer(FIM): 5 Additional Goals: 1-Demonstrate ADL Tasks, 2-Verbalize Understanding, 3- ImproveStrength/Herb 1=Demonstrate adherence to instructed precautions during ADL tasks. 2=Patient will verbalize/demonstrate understanding of assistive devices/ modifications for ADL. 3=Patient will improve strength/tolerance for activity to enable patient to perform ADL's. OT Education/Plan Problem List/Assessment Assessment: Decreased Activ Tolerance, Impaired I ADL's, Impaired Self-Care Skills Discharge Recommendations Plan/Recommendations: Continue POC Therapy D/C Recommendations: Home w/ Family Support, Occupational Therapy Home Care Barriers to Progress Pt. reports being SOA during treatment. Pt. raises concern about going home yet. Treatment Plan/Plan of Care Treatment,Training & Education: Yes Patient would benefit from OT for education, treatment and training to promote independence in ADL's, mobility, safety and/or upper extremity function for ADL' s. Plan of Care: ADL Retraining, Functional Mobility, UE Funct Exercise/Act Treatment Duration: Sep 01, 2017 Frequency: At least 5 of 7 days/Wk (IRF) Estimated Hrs Per Day: 1.5 hours per day Agreement: Yes Rehab Potential: Good Time/GCodes Start Time: 08:30 Stop Time: 09:30 Total Time Billed (hr/min): 60 Billed Treatment Time 1, ADL x 4 MORGAN DIAZ OT Aug 25, 2017 13:57
--- NOTE | 2017-08-25 14:03 | Occupational Ther Daily Note ---
OT Current Status-Daily Note Subjective Pt. states, "I guess you have heard, I'm not going home tomorrow." Appearance Pt up in chair. Agrees to exercises in room. Mental Status/Objective Patient Orientation: Person, Place Functional [place] Measure 0=Not Assessed/NA 4=Minimal Assistance 1=Total Assistance 5=Supervision or Setup 2=Maximal Assistance 6=Modified [place] 3=Moderate Assistance 7=Complete [place] ADL-Treatment Functional [place] Measure 0=Not Assessed/NA 4=Minimal Assistance 1=Total Assistance 5=Supervision or Setup 2=Maximal Assistance 6=Modified [place] 3=Moderate Assistance 7=Complete IndependenceIRFPAI Quality Coding Scale 6 Independent with activity with or without an assistive device 5 Patient requires set up or clean up by helper. Patient completes activity by themselves 4 Supervision or touching assist (CGA). [place] provide cues , steadying assist 3 The helper provides less than half the effort to complete the activity 2 The helper provides more than half the effort to complete the activity 1 Dependent. The helper does all the effort to complete an activity 7 Patient refused to complete or attempt activity 9 The patient did not perform the activity before the current illness or injury 88 Not attempted due to Medical conditions or safety concerns Toileting (FIM): 6 Toileting Hygiene (QC): 6 Transfers (B, C, W/C) (FIM): 6 Toilet/Commode Transfer (FIM): 6 Toilet Transfer (QC): 6 Other Treatment Pt. completes 3 bilateral UE exercises x 15 reps x 2 sets with red theraband. Requires break between each exercise, and drink of water. Pt. also completed hand squeezes with therapy sponge. Pt. ambulated to bathroom and completed toileting task with Mod I. All needs met back in chair. Education OT Patient Education: Correct positioning, Modified ADL techniques, Progress toward Goal/Update tx plan, Purpose of tx/functional activities, Reviewed precautions, Rehab process, Transfer techniques Teaching Recipient: Patient Teaching Methods: Demonstration Response to Teaching: Verbalize Understanding, Return Demonstration OT Short Term Goals Short Term Goals 1=Demonstrate adherence to instructed precautions during ADL tasks. 2=Patient will verbalize/demonstrate understanding of assistive devices/ modifications for ADL. 3=Patient will improve strength/tolerance for activity to enable patient to perform ADL's. OT Assisted Goals Assisted Goals Time Frame: Sep 01, 2017 Eating (FIM): 6 Eating (QC): 6 Groomin Oral Hygiene (QC): 6 Bathing(FIM): 5 Shower/Bathe Self (QC): 5 Upper Body Dressing(FIM): 6 Upper Body Dressing (QC): 6 Lower Body Dressing(FIM): 6 Lower Body Dressing (QC): 6 On/Off Footwear (QC): 6 Toileting(FIM): 6 Toileting Hygiene (QC): 6 Transfers (B,C,W/C) (FIM): 6 Toilet/Commode Transfer(FIM): 6 Toilet/Commode Transfer (QC): 6 Shower Transfer(FIM): 5 Additional Goals: 1-Demonstrate ADL Tasks, 2-Verbalize Understanding, 3- ImproveStrength/Herb 1=Demonstrate adherence to instructed precautions during ADL tasks. 2=Patient will verbalize/demonstrate understanding of assistive devices/ modifications for ADL. 3=Patient will improve strength/tolerance for activity to enable patient to perform ADL's. OT Education/Plan Problem List/Assessment Assessment: Decreased Activ Tolerance, Impaired I ADL's Discharge Recommendations Plan/Recommendations: Continue POC Therapy D/C Recommendations: Home w/ Family Support, Occupational Therapy Home Care Treatment Plan/Plan of Care Treatment,Training & Education: Yes Patient would benefit from OT for education, treatment and training to promote independence in ADL's, mobility, safety and/or upper extremity function for ADL' s. Plan of Care: ADL Retraining, Functional Mobility, UE Funct Exercise/Act Treatment Duration: Sep 01, 2017 Frequency: At least 5 of 7 days/Wk (IRF) Estimated Hrs Per Day: 1.5 hours per day Agreement: Yes Rehab Potential: Good Time/GCodes Start Time: 13:00 Stop Time: 13:30 Total Time Billed (hr/min): 30 Billed Treatment Time 1, Ex x 2 MORGAN DIAZ OT Aug 25, 2017 14:03
--- NOTE | 2017-08-25 14:19 | Physical Therapy Daily Note ---
PT Daily Note-Current Subjective Patient continued to c/o SOA at rest and with activity. Pain Numeric Pain Scale: 5-Moderate Pain Location: Right Location Body Site: Foot Pain Description: Acute Mental Status Patient Orientation: Normal For Age Attachments: Oxygen Transfers Functional [place] Measure 0=Not Assessed/NA 4=Minimal Assistance 1=Total Assistance 5=Supervision or Setup 2=Maximal Assistance 6=Modified [place] 3=Moderate Assistance 7=Complete IndependenceIRFPAI Quality Coding Scale 6 Independent with activity with or without an assistive device 5 Patient requires set up or clean up by helper. Patient completes activity by themselves 4 Supervision or touching assist (CGA). [place] provide cues , steadying assist 3 The helper provides less than half the effort to complete the activity 2 The helper provides more than half the effort to complete the activity 1 Dependent. The helper does all the effort to complete an activity 7 Patient refused to complete or attempt activity 9 The patient did not perform the activity before the current illness or injury 88 Not attempted due to Medical conditions or safety concerns Transfers (B, C, W/C) (FIM): 7 Scootin Roll Left to Right (QC): 6 Sit to/from Stand: 7 Sit to Stand (QC): 6 Weight Bearing Right Lower Extremity: Right Full Weight Bearing Left Lower Extremity: Left Full Weight Bearing Gait Training Does the Patient Walk?: Yes Gait (FIM): 6 Distance (FIM): 3=150 ft Distance: 275' x 4 Walk 10 feet (QC): 6 Walk 50 ft with 2 Turns(QC): 6 Walk 150 ft (QC): 6 Gait Level of Assist: 6 Gait Assistive Device: FWW Assessment Ambulation with increase yonis to improve pulmonary function. Patient requires 3L O2 NC and SAO2 remains >90%. Patient continues to c/o SOA with minimal activity. PT Halfway Goals Packing Shed Supervisor Goals PT Halfway Goals Time Frame: Sep 12, 2017 Transfers (B,C,W/C) (FIM): 6 Sit to Lying (QC): 6 Lying-Sitting on Side/Bed(QC): 6 Sit to Stand (QC): 6 Rollin Roll Left to Right (QC): 6 Chair/Tzj-ki-Ertqk Xfer(QC): 6 Car Transfer (QC): 6 Gait (FIM): 7 Gait distance (FIM): 3=150 ft Distance: 250' Walk 10 feet (QC): 6 Walk 10ft-Uneven Surface(QC): 6 Walk 50ft with 2 Turns (QC): 6 Walk 150 ft (QC): 6 Gait Level of Assist: 7 Gait Assistive Device: None, Cane Single Point Stairs (FIM): 6 # of Steps: 12 1 Step (curb) (QC): 6 4 Steps (QC): 6 12 Steps (QC): 6 Stairs Level Of Assist: 6 Picking up an Object (QC): 6 PT Plan Treatment/Plan Treatment Plan: Continue Plan of Care Treatment Plan: Bed Mobility, Education, Functional Activity Herb, Functional Strength, Group Therapy, Gait, Safety, Therapeutic Exercise, Transfers Treatment Duration: Sep 12, 2017 Frequency: At least 5 of 7 days/Wk (IRF) Estimated Hrs Per Day: 1.5 hours per day Patient and/or Family Agrees t: Yes Time/GCodes Time In: 1345 Time Out: 1415 Total Billed Treatment Time: 30 Total Billed Treatment 1 visit FA x 2 30 min SOFIE SIMMONS PT Aug 25, 2017 14:19
[2017-08-25] MEDS: NYSTATIN CREAM (MYCOSTATIN) 30 GM TUBE TP SCH (16:55)
[2017-08-25 18:00] VITALS: BP 111/62
--- NOTE | 2017-08-25 18:31 | PM & R (SOAP) Progress Note ---
Subjective Time Seen by Provider: 18:20 Subjective/Events-last exam Patient was seen in her room this AM with her spouse Patient Modified Independent for transfers CTA chest shows continued issues at lower lung bases but no evidence of Pulm Embolism Patient wa scheduled to go home tomorrow with spouse but now on hold due to ongoing issues and 02 dependence Appreciate Cardiology note and orders Review of Systems Pulmonary: Dyspnea Objective Exam Last Set of Vital Signs Vital Signs Date Time Temp Pulse Resp B/P (MAP) Pulse Ox O2 Delivery O2 Flow Rate FiO2 08/25/17 18:00 98.0 83 18 111/62 (78) 99 Nasal Cannula 3.00 3.00 Capillary Refill : I&O Intake and Output 08/25/17 00:00 Intake Total 1000 ml Balance 1000 ml Intake Oral 1000 ml # Voids 5 # Bowel Movements 3 General: Alert, Oriented X3, No Acute Distress HEENT: Atraumatic, PERRLA, EOMI, Mucous Memb Moist/[place] Neck: Supple, No JVD Lungs: Clear to Auscultation Heart: Regular Rate Abdomen: Normal Bowel Sounds, Soft, No Tenderness Extremities: No Edema Neuro: Other (generalized weakness) Results Lab Laboratory Tests 08/23/17 05:20: Sodium Level 133L, Potassium Level 3.5L, Chloride Level 94L, Carbon Dioxide Level 32, Anion Gap 7, Blood Urea Nitrogen 9, Creatinine 0.60, Estimat Glomerular Filtration Rate > 60, BUN/Creatinine Ratio 15, Glucose Level 100, Calcium Level 8.7, Magnesium Level 1.7L 08/25/17 06:30: Sodium Level 133L, Potassium Level 4.2, Chloride Level 97L, Carbon Dioxide Level 30, Anion Gap 6, Blood Urea Nitrogen 7, Creatinine 0.61, Estimat Glomerular Filtration Rate > 60, BUN/Creatinine Ratio 11, Glucose Level 111H, Calcium Level 8.7, Magnesium Level 1.8, White Blood Count 5.5, Red Blood Count 3.24L, Hemoglobin 10.0L, Hematocrit 30L, Mean Corpuscular Volume 93, Mean Corpuscular Hemoglobin 31, Mean Corpuscular Hemoglobin Concent 33, Red Cell Distribution Width 12.4, Platelet Count 236, Mean Platelet Volume 10.2, Neutrophils (%) (Auto) 46, Lymphocytes (%) (Auto) 22, Monocytes (%) (Auto) 11, Eosinophils (%) (Auto) 20H, Basophils (%) (Auto) 1, Neutrophils # (Auto) 2.6, Lymphocytes # (Auto) 1.2, Monocytes # (Auto) 0.6, Eosinophils # (Auto) 1.1H, Basophils # (Auto) 0.0, Neutrophils % (Manual) 58, Lymphocytes % (Manual) 16, Monocytes % (Manual) 9, Eosinophils % (Manual) 17, Basophils % (Manual) 0, Band Neutrophils 0, Polychromasia SLIGHT, Poikilocytosis SLIGHT, Tear Drop Cells SLIGHT, Total Bilirubin 0.5, Aspartate Amino Transf (AST/SGOT) 18, Alanine Aminotransferase (ALT/SGPT) 15, Alkaline Phosphatase 58, Total Protein 6.8, Albumin 3.2 Assessment/Plan Assessment General debil s/p acute ST elevation [place] involving the inferior wall associated with RV infarct Anemia Bilateral pleural effusions with 02 dependence with improved pleural effusions but still some consolidation Thrombocytopenia improved followed by hematology Post mi PAF resolved Acute diastolic CHF being treated by Cardiology Elevated Transaminases likely due to STEMI continue to monitor Plan Continue PT/OT F/U with Cardiology and PCP May benefit from seeing Pulm again to review case Will check with Cardiology in AM MIRIAN PARKER MD Aug 25, 2017 18:31
[2017-08-25] MEDS: ATORVASTATIN 80 MG (LIPITOR) TABLET PO SCH (21:15)
[2017-08-26 05:25] LABS: HEMOGLOBIN 10.7 G/DL (11.5-16.0); MEAN PLATELET VOLUME 10.7 FL (7.4-10.4); RED BLOOD COUNT 3.42 10^6/uL (4.35-5.85); RED CELL DISTRIBUTION WIDTH 12.8 % (10.0-14.5); WHITE BLOOD COUNT 6.6 10^3/uL (4.3-11.0)
[2017-08-26 05:42] VITALS: BP 111/62
[2017-08-26 05:46] LABS: BUN/CREATININE RATIO 6; CALCIUM 9.1 MG/DL (8.5-10.1); CARBON DIOXIDE 25 MMOL/L (21-32); CHLORIDE 97 MMOL/L (98-107); CREATININE SERUM 0.65 MG/DL (0.60-1.30); GFR ESTIMATED > 60; GLUCOSE 104 MG/DL (70-105); MAGNESIUM 1.7 MG/DL (1.8-2.4); POTASSIUM 4.2 MMOL/L (3.6-5.0); SODIUM 135 MMOL/L (135-145)
[2017-08-26] MEDS: LACTOBACILLUS Acidoph/Bulgar (LACTINEX/FLORANEX) TAB PO SCH ×3 (06:19→16:36)
[2017-08-26] MEDS: PANTOPRAZOLE 40 MG (PROTONIX) TAB PO SCH (06:19)
[2017-08-26] MEDS: CHOLESTYRAMINE 4 GM (QUESTRAN LITE, PREVALITE) PKT PO SCH ×4 (06:20→20:34)
[2017-08-26] MEDS: RT-ALBUTEROL SULF 2.5 MG/3 ML PRE-MIX VIAL INH SCH ×4 (07:56→16:30)
--- NOTE | 2017-08-26 08:29 | Progress Note (SOAP) ---
Subjective Time Seen by Provider: 08:25 Subjective/Events-last exam Patient had short of breath last night in bed. Patient has some short of breath this morning. Right ankle still hurting WILL x-ray it. Objective Exam Vital Signs Date Time Temp Pulse Resp B/P (MAP) Pulse Ox O2 Delivery O2 Flow Rate FiO2 08/26/17 07:59 96 Nasal Cannula 2.00 08/26/17 05:42 97.2 101 18 111/62 (78) 95 Nasal Cannula 4.00 08/26/17 01:00 81 08/25/17 21:00 Nasal Cannula 3.00 08/25/17 19:56 98 Nasal Cannula 3.00 08/25/17 19:00 99 08/25/17 18:00 98.0 83 18 111/62 (78) 99 Nasal Cannula 3.00 3.00 08/25/17 16:47 98 Nasal Cannula 3.00 08/25/17 13:03 101 08/25/17 09:28 92 Nasal Cannula 3.00 08/25/17 09:00 Nasal Cannula 3.00 I & O 08/26/17 07:00 Intake Total 900 ml Balance 900 ml Capillary Refill : General Appearance: WD/WN HEENT: Normal ENT Inspection Neck: Normal Inspection Respiratory: Decreased Breath Sounds, Other (Short of breath 2) Cardiovascular: Regular Rate, Rhythm Results Lab Laboratory Tests 08/26/17 05:05: White Blood Count 6.6, Red Blood Count 3.42L, Hemoglobin 10.7L, Hematocrit 32L, Mean Corpuscular Volume 94, Mean Corpuscular Hemoglobin 31, Mean Corpuscular Hemoglobin Concent 33, Red Cell Distribution Width 12.8, Platelet Count 260, Mean Platelet Volume 10.7H, Sodium Level 135, Potassium Level 4.2, Chloride Level 97L, Carbon Dioxide Level 25, Anion Gap 13, Blood Urea Nitrogen 4L, Creatinine 0.65, Estimat Glomerular Filtration Rate > 60, BUN/Creatinine Ratio 6 , Glucose Level 104, Calcium Level 9.1, Magnesium Level 1.7L Assessment/Plan Assessment/Plan Assess & Plan/Chief Complaint Debility. Respiratory failure with hypoxia. History of acute AR. . 08/21/17. Debility. Short of breath. History of recent acute AR. Patient states she's feeling a little better. . . Debility. Short of breath. Recent AR. Patient received IV Lasix yesterday. BNP more elevated. . 08/25/17. Debility. Shortness of breath. History of acute AR. Patient feels breathing treatments is helping some. . 08/26/17. Debility. Short of breath. Myocardial infarction recently. Right ankle hurting Clinical Quality Measures DVT/VTE Risk/Contraindication: Risk Factor Score Per Nursin RFS Level Per Nursing on Admit: 2=Moderate ABRAM BRITT DO Aug 26, 2017 08:29
[2017-08-26 08:30] VITALS: BP 125/81
[2017-08-26] MEDS: ASPIRIN E.C. 81 MG (ECOTRIN) TAB PO SCH (08:42)
[2017-08-26] MEDS: FUROSEMIDE 40 MG (LASIX) TAB PO SCH (08:42)
[2017-08-26] MEDS: KCL 10 MEQ TAB (MICRO K) PO SCH (08:42)
[2017-08-26] MEDS: CLOPIDOGREL 75 MG (PLAVIX) TABLET PO SCH (08:42)
[2017-08-26] MEDS: NYSTATIN CREAM (MYCOSTATIN) 30 GM TUBE TP SCH ×3 (08:43→20:34)
--- NOTE | 2017-08-26 10:13 | Pulmonary Consultation ---
History of Present Illness History of Present Illness Date of Consultation 08/26/17 10:08 Date of Admission Allergies and Home Medications Allergies Coded Allergies: No Known Drug Allergies (Unverified , 08/03/17) Home Medications Aspirin 81 Mg Tablet.dr, 81 MG PO Q48H, (Reported) ALTERNATES COATED ASPIRIN WITH CHEWABLE ASPIRN EVERY OTHER DAY AT SUPPER TIME. Aspirin 81 Mg Tab.chew, 81 MG PO Q48H, (Reported) ALTERNATES COATED ASPIRIN WITH CHEWABLE ASPIRN EVERY OTHER DAY AT SUPPER TIME. Calcium Citrate/Vitamin D3 1 Each Tablet, 1 TAB PO HS, (Reported) Levothyroxine Sodium 50 Mcg Tablet, 50 MCG PO DAILY, (Reported) Losartan Potassium 50 Mg Tablet, 50 MG PO DAILY, (Reported) Pravastatin Sodium 40 Mg Tablet, 40 MG PO HS, (Reported) Venlafaxine HCl 37.5 Mg Tab, 37.5 MG PO DAILY, (Reported) [[place] W/ C] , 1 TAB PO 1800, (Reported) Past Uusdxuz-Lkcaij-Ccacln Hx Patient Social History Alcohol Use: Rarely Uses Number of Drinks Today: 0 Recreational Drug Use: No 2nd Hand Smoke Exposure: No Recent Foreign Travel: No Contact w/Someone Who Travel: No Recent Infectious Disease Expo: No Recent Hopitalizations: No Immunizations Up To Date Date of Pneumonia Vaccine: Apr 06, 2016 Date of Influenza Vaccine: Apr 06, 2017 Seasonal Allergies Seasonal Allergies: No Surgeries History of Surgeries: Yes Surgeries: Section Respiratory History of Respiratory Disorde: No Cardiovascular History of Cardiac Disorders: Yes Cardiac Disorders: High Cholesterol, Hypertension Neurological History of Neurological Disord: No Genitourinary History of Genitourinary Disor: No Gastrointestinal History of Gastrointestinal Di: No Musculoskeletal History of Musculoskeletal Dis: Yes Musculoskeletal Disorders: Arthritis Endocrine History of Endocrine Disorders: Yes (thyroid problems) Endocrine Disorders: Hypothyroidsim HEENT History of HEENT Disorders: No Cancer History of Cancer: No Psychosocial History of Psychiatric Problem: No Integumentary History of Skin or Integumenta: No Blood Transfusions History of Blood Disorders: No Family Medical History Significant Family History: No Pertinent Family Hx Exam Exam Vital Signs Date Time Temp Pulse Resp B/P (MAP) Pulse Ox O2 Delivery O2 Flow Rate FiO2 08/26/17 07:59 96 Nasal Cannula 2.00 08/26/17 07:00 72 08/26/17 05:42 97.2 101 18 111/62 (78) 95 Nasal Cannula 4.00 08/26/17 01:00 81 08/25/17 21:00 Nasal Cannula 3.00 08/25/17 19:56 98 Nasal Cannula 3.00 08/25/17 19:00 99 08/25/17 18:00 98.0 83 18 111/62 (78) 99 Nasal Cannula 3.00 3.00 08/25/17 16:47 98 Nasal Cannula 3.00 08/25/17 13:03 101 I & O 08/26/17 07:00 Intake Total 900 ml Balance 900 ml General Appearance: WD/WN HEENT: Normal ENT Inspection Neck: Normal Inspection Respiratory: Decreased Breath Sounds, Other (Short of breath 2) Cardiovascular: Regular Rate, Rhythm Gastrointestinal: non tender, soft Results Lab Laboratory Tests 08/25/17 06:30 08/26/17 05:05 Assessment/Plan Assessment/Plan Bilateral pulmonary infiltrates - No leukocytosis, no fever -EF is 60-65% -Check ESR, CRP, BRETT, RF -Start solumedrol 125mg IV X 1 then 40 IV Q 6 -repeat CXR Diastolic CHF -Pt has been getting Lasix No hx of tobacco use 233 JUANA WILLS DO Aug 26, 2017 10:13
--- NOTE | 2017-08-26 10:30 | Pulmonary Progress Note ---
Subjective Time Seen by Provider: 06:27 Subjective/Events-last exam No complications noted. Exam Exam Vital Signs Date Time Temp Pulse Resp B/P (MAP) Pulse Ox O2 Delivery O2 Flow Rate FiO2 08/26/17 07:59 96 Nasal Cannula 2.00 08/26/17 07:00 72 08/26/17 05:42 97.2 101 18 111/62 (78) 95 Nasal Cannula 4.00 08/26/17 01:00 81 08/25/17 21:00 Nasal Cannula 3.00 08/25/17 19:56 98 Nasal Cannula 3.00 08/25/17 19:00 99 08/25/17 18:00 98.0 83 18 111/62 (78) 99 Nasal Cannula 3.00 3.00 08/25/17 16:47 98 Nasal Cannula 3.00 08/25/17 13:03 101 I & O 08/26/17 07:00 Intake Total 900 ml Balance 900 ml General Appearance: WD/WN HEENT: Normal ENT Inspection Neck: Normal Inspection Respiratory: Decreased Breath Sounds, Other (Short of breath 2) Cardiovascular: Regular Rate, Rhythm Gastrointestinal: non tender, soft Results Lab Laboratory Tests 08/25/17 06:30 08/26/17 05:05 Assessment/Plan Assessment/Plan Bilateral pulmonary infiltrates - No leukocytosis, no fever -EF is 60-65% -Check ESR, CRP, BRETT, RF -Start solumedrol 125mg IV X 1 then 40 IV Q 6 -repeat CXR Diastolic CHF -Pt has been getting Lasix No hx of tobacco use 233 JUANA WILLS DO Aug 26, 2017 10:30
[2017-08-26] MEDS ORDERED: methylPREDNISolone 125 MG (Solu-MEDROL) VIAL IM NR (10:45)
[2017-08-26] MEDS ORDERED: methylPREDNISolone 125 MG (Solu-MEDROL) VIAL IVP NR (11:15)
[2017-08-26] MEDS: ENOXAPARIN 40 MG/0.4 ML (LOVENOX) SYR SC SCH (11:19)
--- NOTE | 2017-08-26 12:00 | Physical Therapy Daily Note ---
PT Daily Note-Current Subjective Pt sitting in recliner upon arrival. Pt agrees to PT. Dr Quan checks on pt and will have lab drawn, xray taen & medicine given as needed. Pain Numeric Pain Scale: 3 Location Body Site: Ankle Pain Description: Ache Mental Status Patient Orientation: Person, Place, Time, Situation Transfers Functional [place] Measure 0=Not Assessed/NA 4=Minimal Assistance 1=Total Assistance 5=Supervision or Setup 2=Maximal Assistance 6=Modified [place] 3=Moderate Assistance 7=Complete IndependenceIRFPAI Quality Coding Scale 6 Independent with activity with or without an assistive device 5 Patient requires set up or clean up by helper. Patient completes activity by themselves 4 Supervision or touching assist (CGA). [place] provide cues , steadying assist 3 The helper provides less than half the effort to complete the activity 2 The helper provides more than half the effort to complete the activity 1 Dependent. The helper does all the effort to complete an activity 7 Patient refused to complete or attempt activity 9 The patient did not perform the activity before the current illness or injury 88 Not attempted due to Medical conditions or safety concerns Scootin Sit to/from Stand: 6 Sit to Stand (QC): 6 Weight Bearing Right Lower Extremity: Right Full Weight Bearing Left Lower Extremity: Left Full Weight Bearing Gait Training Does the Patient Walk?: Yes Distance (FIM): 3=150 ft Distance: 150' Walk 10 feet (QC): 5 Walk 50 ft with 2 Turns(QC): 5 Walk 150 ft (QC): 5 Gait Level of Assist: 5 Gait Persons Needed: 1 Gait Assistive Device: FWW Pt has slow yonis & gets SOA during ambulation. Pt requires rest break to recover, O2 dropped to 87% during walk. Wheelchair Training Does the Pt Use a Wheelchair?: No Exercises Seated Therapy Exercises: Ankle pumps, Long arc quads, Hip flexion, Kicking activity, Hip abd/add Seated Reps: 20 Treatments Pt receives meds from Nurse, followed by Dr Quan to check on pt. orders lab drawn, xray & steroids given. Pt transfers to standing from recliner using FWW at Mod I to use restroom. Pt ambulates in hallway then takes short rest due to SOA. After recovery period, pt completes Seated Ex in Therapy Gym walks back to room to rest in recliner. Pt has all needs met at end of tx, including call light. Assessment Current Status: Good Progress Pt really SOA during ambulation and fatigues easy. PT Garment Liner Goals Garment Liner Goals PT Garment Liner Goals Time Frame: Sep 12, 2017 Transfers (B,C,W/C) (FIM): 6 Sit to Lying (QC): 6 Lying-Sitting on Side/Bed(QC): 6 Sit to Stand (QC): 6 Rollin Roll Left to Right (QC): 6 Chair/Epr-mr-Rcljm Xfer(QC): 6 Car Transfer (QC): 6 Gait (FIM): 7 Gait distance (FIM): 3=150 ft Distance: 250' Walk 10 feet (QC): 6 Walk 10ft-Uneven Surface(QC): 6 Walk 50ft with 2 Turns (QC): 6 Walk 150 ft (QC): 6 Gait Level of Assist: 7 Gait Assistive Device: None, Cane Single Point Stairs (FIM): 6 # of Steps: 12 1 Step (curb) (QC): 6 4 Steps (QC): 6 12 Steps (QC): 6 Stairs Level Of Assist: 6 Picking up an Object (QC): 6 PT Plan Problem List Problem List: Activity Tolerance, Gait Treatment/Plan Treatment Plan: Continue Plan of Care Treatment Plan: Bed Mobility, Education, Functional Activity Herb, Functional Strength, Group Therapy, Gait, Safety, Therapeutic Exercise, Transfers Treatment Duration: Sep 12, 2017 Frequency: At least 5 of 7 days/Wk (IRF) Estimated Hrs Per Day: 1.5 hours per day Patient and/or Family Agrees t: Yes Safety Risks/Education Patient Education: Gait Training, Correct Positioning, Safety Issues Teaching Recipient: Patient Teaching Methods: Discussion Response to Teaching: Verbalize Understanding Time/GCodes Time In: 1000 Time Out: 1100 Total Billed Treatment Time: 60 Total Billed Treatment 1, GT x2 (30m), EX (15m) & FA (15m) JULIO PADRON [employer] Aug 26, 2017 12:00
--- NOTE | 2017-08-26 12:13 | Progress Note-Cardiology ---
Cardiology SOAP Progress Note Objective: I&O/Vital Signs Vital Sign - Last 12Hours 08/26/17 08/26/17 08/27/17 08/27/17 20:16 20:40 01:00 04:45 Temp 96.9 Pulse 74 74 Resp 20 B/P (MAP) 98/57 (71) Pulse Ox 96 94 O2 Delivery Nasal Cannula Nasal Cannula Nasal Cannula O2 Flow Rate 4.00 4.00 4.00 08/27/17 08/27/17 07:00 07:28 Pulse 88 Pulse Ox 91 O2 Delivery Nasal Cannula O2 Flow Rate 4.00 Intake and Output 08/27/17 00:00 Intake Total 940 ml Balance 940 ml Weight (Pounds): 130 Weight (Ounces): 2.0 Weight (Calculated Kilograms): 59.748996 Constitutional: AAO x 3 Respiratory: other (bibasilar coarse crackles, somewhat more on the R) Cardiovascular: regular rate-rhythm, S1 and S2 Gastrointestional: No tender, soft, round, audible bowel sounds Extremities: No clubbing, No cyanosis, no lower extremity edema bilateral Neurologic/Psychiatric: grossly intact Skin: No rash on exposed areas, No ulcerations on exposed areas Results/Procedures: Labs Laboratory Tests 08/26/17 10:30: Erythrocyte Sedimentation Rate 94H, C-Reactive Protein High Sensitivity 0.35, Thyroid Stimulating Hormone (TSH) 5.77H Procedures NAME: LEYLA CASTELLANO [facility] REC#: [id number] PT STATUS: ADM IN : 1945 PHYSICIAN: ABHISHEK BANDA ADMIT DATE: 08/18/17/[facility] Signed Date of Exam: 08/25/17 CT ANGIO CHEST W PROCEDURE: CT angiography of the chest with contrast. TECHNIQUE: Multiple contiguous axial images were obtained through the chest after uneventful bolus administration of intravenous contrast. Reconstructed CTA MIP acquisitions were also performed. INDICATION: Shortness of breath and myocardial infarction. COMPARISON: Comparison made with prior examination 08/07/2017. FINDINGS: Note is again made of diffuse bilateral groundglass infiltrates. These are relatively unchanged when compared to prior examination. There is more coarse reticular infiltrates in the lung bases. The previously seen pleural effusions have resolved. There is no pneumothorax. The thoracic aorta is normal in caliber without evidence of dissection. There are no filling defects seen within the pulmonary arteries to suggest pulmonary embolism. There is cardiomegaly. The visualized intra-abdominal structures are unremarkable. There is mild thoracic spondylosis. IMPRESSION: 1. Persistent diffuse mixed interstitial alveolar and groundglass infiltrates in both lungs. Again, this may reflect pulmonary edema, pneumonia or atelectasis. The previously seen bilateral pleural effusions have resolved. 2. No evidence of aortic dissection or pulmonary embolism. 3. Cardiomegaly. 4. Mild thoracic spondylosis. Dictated by: Dictated on workstation # [id number] Dict: 08/25/17 1133 Trans: 08/25/17 1312 Interpreted by: BRIJESH GALINDO MD Electronically signed by: BRIJESH GALINDO MD 08/25/17 1312 A/P: Assessment: Bibasilar pulmonary infiltrates: CHF vs atelectasis vs pneumonia; unchanged on CT of 08/25/17 Acute diastolic CHF Echo of 08/21/17: LVEF 60-65%, grade I rouse dysfunction, no significant pericard eff or valvular heart disease, PASP 30 mmHg Status post acute ST elevation myocardial infarction involving the inferior wall associated with RV infarct. Coronary artery disease, status post cardiac catheterization done by Dr. Schumacher on 08/04/17: Mid vessel occlusion of the right coronary artery treated with overlapping stents (Alpine Xience 2.75 x 28 mm the distal part of which extends slightly into the right ventricular branch) and Alpine Xience 2.75 x 12 mm stent that was placed through the expanded struts of the previous stent and overlaps the previous stent to some degree. There is no significant residual stenosis in the right coronary artery and the flow was normal, but right ventricular branch was lost during the procedure due to infarct-related thrombus. A 90% to 95% stenosis of the proximal left circumflex artery, which was treated with stenting with Alpine Xience 2.25 x 12 mm stent with reduction of stenosis to 0% residual. The left anterior descending artery has diffuse mild -to-moderate disease Well preserved global left ventricular systolic function with ejection fraction 60%, postero-basal hypokinesis, no significant mitral regurgitation and mild elevation of left ventricular end-diastolic pressure on [facility] of 08/04/17 Paroxysmal atrial fib/flutter, currently in sinus rhythm, had episodes of atrial fibrillation/flutter within 48 hours her myocardial infarction, has since been maintaining sinus rhythm - OAC has been withheld Anemia, stool for occult blood is negative. H&H are better Hypotension - likely d/t RV infarct, improved Thrombocytopenia, improved, unlikely to be HIT, followed and managed by Dr. Diaz TSH 0.26 on lab of 08-05-17 - suggestive of hyperthyroidism Elevated transaminases likely d/t STEMI, now back to normal Plan: Continue current card regimen Repeat labs in am Continue SOB - Pulmonary services consulted CXR pending ABHISHEK BANDA Aug 26, 2017 12:13
--- NOTE | 2017-08-26 12:30 | Diagnostic Imaging Report ---
INDICATION: Pain. COMPARISON: None. FINDINGS: 3 views of the right ankle were obtained. There is no acute fracture or dislocation. No focal osseous lesions are seen. The surrounding soft tissue structures are unremarkable. There are no radiopaque foreign bodies. IMPRESSION: 1. No acute fracture or dislocation in the right ankle. Dictated by: Dictated on workstation # [id number]
[2017-08-26] MEDS: CATHETER FLUSH 10 ML SYR IV PRN ×2 (12:31→17:39)
--- NOTE | 2017-08-26 12:32 | Diagnostic Imaging Report ---
INDICATION: Followup infiltrate. COMPARISON: 08/20/2017. FINDINGS: Frontal and lateral radiographic views of the chest were obtained and continue to show scattered patchy and confluent infiltrates bilaterally, right greater than left. Overall, aeration has not significantly changed compared to prior exam. There is no large effusion or pneumothorax. Cardiac silhouette and pulmonary vasculature are stable. Bony structures show no gross acute adverse interval change. IMPRESSION: 1. Stable bilateral infiltrates, right greater than left. Dictated by: Dictated on workstation # [id number]
--- NOTE | 2017-08-26 14:05 | PM & R (SOAP) Progress Note ---
Subjective Time Seen by Provider: 07:50 Subjective/Events-last exam Patient was seen in her room this AM Patient Modified Independent for transfers Objective Exam Last Set of Vital Signs Vital Signs Date Time Temp Pulse Resp B/P (MAP) Pulse Ox O2 Delivery O2 Flow Rate FiO2 08/26/17 11:02 93 Nasal Cannula 4.00 08/26/17 07:00 72 08/26/17 05:42 97.2 18 111/62 (78) Capillary Refill : I&O Intake and Output 08/26/17 00:00 Intake Total 1660 ml Balance 1660 ml Intake Oral 1660 ml # Voids 6 # Bowel Movements 3 General: Alert, Oriented X3, No Acute Distress HEENT: Atraumatic, PERRLA, EOMI, Mucous Memb Moist/[place] Neck: Supple, No JVD Lungs: Clear to Auscultation Heart: Regular Rate Abdomen: Normal Bowel Sounds, Soft, No Tenderness Extremities: No Edema Neuro: Other (generalized weakness) Results Lab Laboratory Tests 08/25/17 06:30: White Blood Count 5.5, Red Blood Count 3.24L, Hemoglobin 10.0L, Hematocrit 30L, Mean Corpuscular Volume 93, Mean Corpuscular Hemoglobin 31, Mean Corpuscular Hemoglobin Concent 33, Red Cell Distribution Width 12.4, Platelet Count 236, Mean Platelet Volume 10.2, Neutrophils (%) (Auto) 46, Lymphocytes (%) (Auto) 22 , Monocytes (%) (Auto) 11, Eosinophils (%) (Auto) 20H, Basophils (%) (Auto) 1, Neutrophils # (Auto) 2.6, Lymphocytes # (Auto) 1.2, Monocytes # (Auto) 0.6, Eosinophils # (Auto) 1.1H, Basophils # (Auto) 0.0, Neutrophils % (Manual) 58, Lymphocytes % (Manual) 16, Monocytes % (Manual) 9, Eosinophils % (Manual) 17, Basophils % (Manual) 0, Band Neutrophils 0, Polychromasia SLIGHT, Poikilocytosis SLIGHT, Tear Drop Cells SLIGHT, Sodium Level 133L, Potassium Level 4.2, Chloride Level 97L, Carbon Dioxide Level 30, Anion Gap 6, Blood Urea Nitrogen 7, Creatinine 0.61, Estimat Glomerular Filtration Rate > 60, BUN/ Creatinine Ratio 11, Glucose Level 111H, Calcium Level 8.7, Magnesium Level 1.8 , Total Bilirubin 0.5, Aspartate Amino Transf (AST/SGOT) 18, Alanine Aminotransferase (ALT/SGPT) 15, Alkaline Phosphatase 58, Total Protein 6.8, Albumin 3.2 08/26/17 05:05: White Blood Count 6.6, Red Blood Count 3.42L, Hemoglobin 10.7L, Hematocrit 32L, Mean Corpuscular Volume 94, Mean Corpuscular Hemoglobin 31, Mean Corpuscular Hemoglobin Concent 33, Red Cell Distribution Width 12.8, Platelet Count 260, Mean Platelet Volume 10.7H, Sodium Level 135, Potassium Level 4.2, Chloride Level 97L, Carbon Dioxide Level 25, Anion Gap 13, Blood Urea Nitrogen 4L, Creatinine 0.65, Estimat Glomerular Filtration Rate > 60, BUN/Creatinine Ratio 6 , Glucose Level 104, Calcium Level 9.1, Magnesium Level 1.7L 08/26/17 10:30: Erythrocyte Sedimentation Rate 94H, C-Reactive Protein High Sensitivity 0.35, Thyroid Stimulating Hormone (TSH) 5.77H Assessment/Plan Assessment General debil s/p acute ST elevation [place] involving the inferior wall associated with RV infarct Anemia Bilateral pleural effusions with 02 dependence with improved pleural effusions but still some consolidation Thrombocytopenia improved followed by hematology Post mi PAF resolved Acute diastolic CHF being treated by Cardiology Elevated Transaminases likely due to STEMI continue to monitor Plan Continue PT/OT F/U with Cardiology and PCP Discussed case with DR Moe last evening Appreciate Dr delgadillo note and orders Will f/u re studies ordered Team Conference tomorrow 08-27-17 MIRIAN PARKER MD Aug 26, 2017 14:05
--- NOTE | 2017-08-26 14:25 | Occupational Ther Daily Note ---
OT Current Status-Daily Note Subjective Pt. states that she did not have a good night last night. States that her oxygen went down. Appearance Pt. in bed. Declines showering but agrees to dress and work with OT. Mental Status/Objective Patient Orientation: Person, Place, Time Functional [place] Measure 0=Not Assessed/NA 4=Minimal Assistance 1=Total Assistance 5=Supervision or Setup 2=Maximal Assistance 6=Modified [place] 3=Moderate Assistance 7=Complete [place] Attachments: Oxygen ADL-Treatment Functional [place] Measure 0=Not Assessed/NA 4=Minimal Assistance 1=Total Assistance 5=Supervision or Setup 2=Maximal Assistance 6=Modified [place] 3=Moderate Assistance 7=Complete IndependenceIRFPAI Quality Coding Scale 6 Independent with activity with or without an assistive device 5 Patient requires set up or clean up by helper. Patient completes activity by themselves 4 Supervision or touching assist (CGA). [place] provide cues , steadying assist 3 The helper provides less than half the effort to complete the activity 2 The helper provides more than half the effort to complete the activity 1 Dependent. The helper does all the effort to complete an activity 7 Patient refused to complete or attempt activity 9 The patient did not perform the activity before the current illness or injury 88 Not attempted due to Medical conditions or safety concerns Upper Body (FIM): 5 Upper Body Dressing (QC): 4 Lower Body Dressing (FIM): 5 Lower Body Dressing (QC): 4 On/Off Footwear (QC): 4 Toileting (FIM): 5 Toileting Hygiene (QC): 5 Transfers (B, C, W/C) (FIM): 5 Toilet/Commode Transfer (FIM): 5 Toilet Transfer (QC): 5 Pt. continually states that she feels short of air. Pt. breathing with effort. Pt. on 4 L 02. Sats monitored and pt. at 95-98%. Requires increased time with all tasks. Tolerated UE exercises with theraband x 2 exercises x 10 reps each with increased time and rest breaks. Education OT Patient Education: Correct positioning, Exercise program, Modified ADL techniques, Progress toward Goal/Update tx plan, Purpose of tx/functional activities, Reviewed precautions, Rehab process, Transfer techniques Teaching Recipient: Patient Teaching Methods: Demonstration Response to Teaching: Verbalize Understanding, Return Demonstration OT Short Term Goals Short Term Goals 1=Demonstrate adherence to instructed precautions during ADL tasks. 2=Patient will verbalize/demonstrate understanding of assistive devices/ modifications for ADL. 3=Patient will improve strength/tolerance for activity to enable patient to perform ADL's. OT Professor Of Music Goals Jail Goals Time Frame: Sep 01, 2017 Eating (FIM): 6 Eating (QC): 6 Groomin Oral Hygiene (QC): 6 Bathing(FIM): 5 Shower/Bathe Self (QC): 5 Upper Body Dressing(FIM): 6 Upper Body Dressing (QC): 6 Lower Body Dressing(FIM): 6 Lower Body Dressing (QC): 6 On/Off Footwear (QC): 6 Toileting(FIM): 6 Toileting Hygiene (QC): 6 Transfers (B,C,W/C) (FIM): 6 Toilet/Commode Transfer(FIM): 6 Toilet/Commode Transfer (QC): 6 Shower Transfer(FIM): 5 Additional Goals: 1-Demonstrate ADL Tasks, 2-Verbalize Understanding, 3- ImproveStrength/Herb 1=Demonstrate adherence to instructed precautions during ADL tasks. 2=Patient will verbalize/demonstrate understanding of assistive devices/ modifications for ADL. 3=Patient will improve strength/tolerance for activity to enable patient to perform ADL's. OT Education/Plan Problem List/Assessment Assessment: Decreased Activ Tolerance, Dependent Transfers, Impaired Bed Mobility, Impaired Funct Balance, Impaired I ADL's, Impaired Self-Care Skills Discharge Recommendations Plan/Recommendations: Continue POC Therapy D/C Recommendations: Home w/ Family Support, Occupational Therapy Home Care Treatment Plan/Plan of Care Treatment,Training & Education: Yes Patient would benefit from OT for education, treatment and training to promote independence in ADL's, mobility, safety and/or upper extremity function for ADL' s. Plan of Care: ADL Retraining, Functional Mobility, UE Funct Exercise/Act Treatment Duration: Sep 01, 2017 Frequency: At least 5 of 7 days/Wk (IRF) Estimated Hrs Per Day: 1.5 hours per day Agreement: Yes Rehab Potential: Good Time/GCodes Start Time: 08:30 Stop Time: 09:30 Total Time Billed (hr/min): 60 Billed Treatment Time 1, ADL x 45minutes,FA x 15minutes MORGAN DIAZ OT Aug 26, 2017 14:25
--- NOTE | 2017-08-26 14:37 | Occupational Ther Daily Note ---
OT Current Status-Daily Note Subjective No pain reported. Appearance Pt. up in chair. Agrees to work with OT. Mental Status/Objective Patient Orientation: Person, Place Functional [place] Measure 0=Not Assessed/NA 4=Minimal Assistance 1=Total Assistance 5=Supervision or Setup 2=Maximal Assistance 6=Modified [place] 3=Moderate Assistance 7=Complete [place] ADL-Treatment Functional [place] Measure 0=Not Assessed/NA 4=Minimal Assistance 1=Total Assistance 5=Supervision or Setup 2=Maximal Assistance 6=Modified [place] 3=Moderate Assistance 7=Complete IndependenceIRFPAI Quality Coding Scale 6 Independent with activity with or without an assistive device 5 Patient requires set up or clean up by helper. Patient completes activity by themselves 4 Supervision or touching assist (CGA). [place] provide cues , steadying assist 3 The helper provides less than half the effort to complete the activity 2 The helper provides more than half the effort to complete the activity 1 Dependent. The helper does all the effort to complete an activity 7 Patient refused to complete or attempt activity 9 The patient did not perform the activity before the current illness or injury 88 Not attempted due to Medical conditions or safety concerns Other Treatment Pt. tolerated theraband exercises, 3 sets x 15 reps each x 3 exercises in all planes for increased overall strength. Pt. required constant rest breaks. All needs met in room. Education OT Patient Education: Modified ADL techniques, Progress toward Goal/Update tx plan, Purpose of tx/functional activities, Reviewed precautions, Rehab process, Transfer techniques Teaching Recipient: Patient Teaching Methods: Demonstration Response to Teaching: Verbalize Understanding, Return Demonstration OT Short Term Goals Short Term Goals 1=Demonstrate adherence to instructed precautions during ADL tasks. 2=Patient will verbalize/demonstrate understanding of assistive devices/ modifications for ADL. 3=Patient will improve strength/tolerance for activity to enable patient to perform ADL's. OT Penitentiary Goals Penitentiary Goals Time Frame: Sep 01, 2017 Eating (FIM): 6 Eating (QC): 6 Groomin Oral Hygiene (QC): 6 Bathing(FIM): 5 Shower/Bathe Self (QC): 5 Upper Body Dressing(FIM): 6 Upper Body Dressing (QC): 6 Lower Body Dressing(FIM): 6 Lower Body Dressing (QC): 6 On/Off Footwear (QC): 6 Toileting(FIM): 6 Toileting Hygiene (QC): 6 Transfers (B,C,W/C) (FIM): 6 Toilet/Commode Transfer(FIM): 6 Toilet/Commode Transfer (QC): 6 Shower Transfer(FIM): 5 Additional Goals: 1-Demonstrate ADL Tasks, 2-Verbalize Understanding, 3- ImproveStrength/Herb 1=Demonstrate adherence to instructed precautions during ADL tasks. 2=Patient will verbalize/demonstrate understanding of assistive devices/ modifications for ADL. 3=Patient will improve strength/tolerance for activity to enable patient to perform ADL's. OT Education/Plan Problem List/Assessment Assessment: Decreased Activ Tolerance, Decreased UE Strength, Impaired Funct Balance, Impaired I ADL's, Impaired Self-Care Skills Discharge Recommendations Plan/Recommendations: Continue POC Therapy D/C Recommendations: Home w/ Family Support, Occupational Therapy Home Care Treatment Plan/Plan of Care Treatment,Training & Education: Yes Patient would benefit from OT for education, treatment and training to promote independence in ADL's, mobility, safety and/or upper extremity function for ADL' s. Plan of Care: ADL Retraining, Functional Mobility, UE Funct Exercise/Act Treatment Duration: Sep 01, 2017 Frequency: At least 5 of 7 days/Wk (IRF) Estimated Hrs Per Day: 1.5 hours per day Agreement: Yes Rehab Potential: Good Time/GCodes Start Time: 13:00 Stop Time: 13:30 Total Time Billed (hr/min): 30 Billed Treatment Time 1, EX x 2 MORGAN DIAZ OT Aug 26, 2017 14:37
--- NOTE | 2017-08-26 16:16 | Physical Therapy Daily Note ---
PT Daily Note-Current Subjective Pt sitting in recliner upon arrival. Pt agrees to PT. Pain Numeric Pain Scale: 3 Location: Right Location Body Site: Ankle Pain Description: Ache Mental Status Patient Orientation: Person, Place, Time, Situation Attachments: Oxygen (4L in room & 5L during tx) Transfers Functional [place] Measure 0=Not Assessed/NA 4=Minimal Assistance 1=Total Assistance 5=Supervision or Setup 2=Maximal Assistance 6=Modified [place] 3=Moderate Assistance 7=Complete IndependenceIRFPAI Quality Coding Scale 6 Independent with activity with or without an assistive device 5 Patient requires set up or clean up by helper. Patient completes activity by themselves 4 Supervision or touching assist (CGA). [place] provide cues , steadying assist 3 The helper provides less than half the effort to complete the activity 2 The helper provides more than half the effort to complete the activity 1 Dependent. The helper does all the effort to complete an activity 7 Patient refused to complete or attempt activity 9 The patient did not perform the activity before the current illness or injury 88 Not attempted due to Medical conditions or safety concerns Scootin Sit to/from Stand: 6 Sit to Stand (QC): 6 Weight Bearing Right Lower Extremity: Right Full Weight Bearing Left Lower Extremity: Left Full Weight Bearing Gait Training Does the Patient Walk?: Yes Distance (FIM): 3=150 ft Distance: 150' Walk 10 feet (QC): 5 Walk 50 ft with 2 Turns(QC): 5 Walk 150 ft (QC): 5 Gait Level of Assist: 5 Gait Persons Needed: 1 Gait Assistive Device: FWW Pt has slow yonis & fatigues easy but is less SOA. Wheelchair Training Does the Pt Use a Wheelchair?: No Exercises Standing: Heel/toe raises, Marching, Mini squats Treatments Pt transfers to standing using FWW at Mod I. Pt ambulates in hallway using FWW at SBA. Pt completes Standing EX at //bars. Pt returns to room at end of tx to rest in recliner. Pt has al needs met, including call light. Assessment Current Status: Good Progress Pt was less SOA during ambulation. PT Tanning Solution Maker Goals Halfway Goals PT Halfway Goals Time Frame: Sep 12, 2017 Transfers (B,C,W/C) (FIM): 6 Sit to Lying (QC): 6 Lying-Sitting on Side/Bed(QC): 6 Sit to Stand (QC): 6 Rollin Roll Left to Right (QC): 6 Chair/Csu-av-Rxagj Xfer(QC): 6 Car Transfer (QC): 6 Gait (FIM): 7 Gait distance (FIM): 3=150 ft Distance: 250' Walk 10 feet (QC): 6 Walk 10ft-Uneven Surface(QC): 6 Walk 50ft with 2 Turns (QC): 6 Walk 150 ft (QC): 6 Gait Level of Assist: 7 Gait Assistive Device: None, Cane Single Point Stairs (FIM): 6 # of Steps: 12 1 Step (curb) (QC): 6 4 Steps (QC): 6 12 Steps (QC): 6 Stairs Level Of Assist: 6 Picking up an Object (QC): 6 PT Plan Problem List Problem List: Activity Tolerance, Gait Treatment/Plan Treatment Plan: Continue Plan of Care Treatment Plan: Bed Mobility, Education, Functional Activity Herb, Functional Strength, Group Therapy, Gait, Safety, Therapeutic Exercise, Transfers Treatment Duration: Sep 12, 2017 Frequency: At least 5 of 7 days/Wk (IRF) Estimated Hrs Per Day: 1.5 hours per day Patient and/or Family Agrees t: Yes Safety Risks/Education Patient Education: Gait Training, Correct Positioning, Safety Issues Teaching Recipient: Patient Teaching Methods: Discussion Response to Teaching: Verbalize Understanding Time/GCodes Time In: 1400 Time Out: 1430 Total Billed Treatment Time: 30 Total Billed Treatment 1, GT (15m) & EX (15m) JULIO PADRON EVENT ORGANIZER Aug 26, 2017 16:16
--- NOTE | 2017-08-26 17:07 | Progress Note-Cardiology ---
Cardiology SOAP Progress Note Subjective: Shortness of breath slowly improving No cp or palp or syncope Objective: I&O/Vital Signs Vital Sign - Last 12Hours 08/26/17 08/26/17 08/26/17 08/26/17 05:42 07:00 07:59 08:30 Temp 97.2 Pulse 101 72 88 Resp 18 B/P (MAP) 111/62 (78) 125/81 (96) Pulse Ox 95 96 86 O2 Delivery Nasal Cannula Nasal Cannula Nasal Cannula O2 Flow Rate 4.00 2.00 4.00 08/26/17 08/26/17 08/26/17 08/26/17 09:00 11:02 13:00 16:30 Pulse 86 Pulse Ox 93 92 O2 Delivery Nasal Cannula Nasal Cannula Nasal Cannula O2 Flow Rate 4.00 4.00 4.00 Intake and Output 08/26/17 00:00 Intake Total 800 ml Balance 800 ml Weight (Pounds): 130 Weight (Ounces): 2.0 Weight (Calculated Kilograms): 59.913878 Constitutional: AAO x 3 Respiratory: other (bibasilar coarse crackles, somewhat more on the R) Cardiovascular: regular rate-rhythm, S1 and S2 Gastrointestional: No tender, soft, round, audible bowel sounds Extremities: No clubbing, No cyanosis, no lower extremity edema bilateral Neurologic/Psychiatric: grossly intact Skin: No rash on exposed areas, No ulcerations on exposed areas Results/Procedures: Labs Laboratory Tests 08/26/17 05:05: White Blood Count 6.6, Red Blood Count 3.42L, Hemoglobin 10.7L, Hematocrit 32L, Mean Corpuscular Volume 94, Mean Corpuscular Hemoglobin 31, Mean Corpuscular Hemoglobin Concent 33, Red Cell Distribution Width 12.8, Platelet Count 260, Mean Platelet Volume 10.7H, Sodium Level 135, Potassium Level 4.2, Chloride Level 97L, Carbon Dioxide Level 25, Anion Gap 13, Blood Urea Nitrogen 4L, Creatinine 0.65, Estimat Glomerular Filtration Rate > 60, BUN/Creatinine Ratio 6 , Glucose Level 104, Calcium Level 9.1, Magnesium Level 1.7L 08/26/17 10:30: Erythrocyte Sedimentation Rate 94H, C-Reactive Protein High Sensitivity 0.35, Thyroid Stimulating Hormone (TSH) 5.77H Laboratory Tests 08/25/17 06:30 08/26/17 05:05 A/P: Assessment: Bibasilar pulmonary infiltrates: CHF vs atelectasis vs pneumonia; unchanged on CT of 08/25/17 Acute diastolic CHF Echo of 08/21/17: LVEF 60-65%, grade I rouse dysfunction, no significant pericard eff or valvular heart disease, PASP 30 mmHg Status post acute ST elevation myocardial infarction involving the inferior wall associated with RV infarct. Coronary artery disease, status post cardiac catheterization done by Dr. Schumacher on 08/04/17: Mid vessel occlusion of the right coronary artery treated with overlapping stents (Alpine Xience 2.75 x 28 mm the distal part of which extends slightly into the right ventricular branch) and Alpine Xience 2.75 x 12 mm stent that was placed through the expanded struts of the previous stent and overlaps the previous stent to some degree. There is no significant residual stenosis in the right coronary artery and the flow was normal, but right ventricular branch was lost during the procedure due to infarct-related thrombus. A 90% to 95% stenosis of the proximal left circumflex artery, which was treated with stenting with Alpine Xience 2.25 x 12 mm stent with reduction of stenosis to 0% residual. The left anterior descending artery has diffuse mild -to-moderate disease Well preserved global left ventricular systolic function with ejection fraction 60%, postero-basal hypokinesis, no significant mitral regurgitation and mild elevation of left ventricular end-diastolic pressure on LHC of 08/04/17 Paroxysmal atrial fib/flutter, currently in sinus rhythm, had episodes of atrial fibrillation/flutter within 48 hours her myocardial infarction, has since been maintaining sinus rhythm - OAC has been withheld Anemia, stool for occult blood is negative. H&H are better Hypotension - likely d/t RV infarct, improved Thrombocytopenia, improved, unlikely to be HIT, followed and managed by Dr. Diaz TSH 0.26 on lab of 08-05-17 - suggestive of hyperthyroidism Elevated transaminases likely d/t STEMI, now back to normal Plan: I discussed her case with Dr Quan of the Pulm Svce this am and requested him to reeval her pulm status Continue current card regimen Replenish LIZY Cai MD FACP FAC CCDS Aug 26, 2017 17:07
[2017-08-26] MEDS ORDERED: MAGNESIUM 1 GM/100 ML IVPB 100 ML IV NR (17:15)
[2017-08-26] MEDS: methylPREDNISolone 40 MG/ML (Solu-MEDROL) VIAL IV SCH (17:38)
[2017-08-26 18:00] VITALS: BP 114/70
[2017-08-26] MEDS: ATORVASTATIN 80 MG (LIPITOR) TABLET PO SCH (20:33)
[2017-08-27] MEDS: methylPREDNISolone 40 MG/ML (Solu-MEDROL) VIAL IV SCH ×5 (00:53→23:38)
[2017-08-27 04:45] VITALS: BP 98/57
[2017-08-27] MEDS: LACTOBACILLUS Acidoph/Bulgar (LACTINEX/FLORANEX) TAB PO SCH ×3 (06:24→16:34)
[2017-08-27] MEDS: PANTOPRAZOLE 40 MG (PROTONIX) TAB PO SCH (06:24)
[2017-08-27] MEDS: CHOLESTYRAMINE 4 GM (QUESTRAN LITE, PREVALITE) PKT PO SCH ×4 (06:24→20:34)
[2017-08-27] MEDS: RT-ALBUTEROL SULF 2.5 MG/3 ML PRE-MIX VIAL INH SCH ×4 (07:28→18:56)
[2017-08-27 08:08] VITALS: BP 115/71
[2017-08-27] MEDS: CLOPIDOGREL 75 MG (PLAVIX) TABLET PO SCH (08:08)
[2017-08-27] MEDS: KCL 10 MEQ TAB (MICRO K) PO SCH (08:08)
[2017-08-27] MEDS: NYSTATIN CREAM (MYCOSTATIN) 30 GM TUBE TP SCH ×3 (08:09→20:34)
[2017-08-27] MEDS: FUROSEMIDE 40 MG (LASIX) TAB PO SCH (08:09)
[2017-08-27] MEDS: ASPIRIN E.C. 81 MG (ECOTRIN) TAB PO SCH (08:09)
[2017-08-27] MEDS: MENTHOL/ZINC OXIDE (CALMOSEPTINE) 113 GM TUBE TOP PRN (08:09)
--- NOTE | 2017-08-27 08:36 | Progress Note (SOAP) ---
Subjective Time Seen by Provider: 08:35 Subjective/Events-last exam Right ankle better today. Patient had a better night. Patient on steroid and feel she is doing better with that Objective Exam Vital Signs Date Time Temp Pulse Resp B/P (MAP) Pulse Ox O2 Delivery O2 Flow Rate FiO2 08/27/17 08:08 89 115/71 (86) 08/27/17 07:28 91 Nasal Cannula 4.00 08/27/17 07:00 88 08/27/17 04:45 96.9 74 20 98/57 (71) 94 Nasal Cannula 4.00 08/27/17 01:00 74 08/26/17 20:40 Nasal Cannula 4.00 08/26/17 20:16 96 Nasal Cannula 4.00 08/26/17 19:00 90 08/26/17 18:00 97.4 93 18 114/70 (85) 97 Nasal Cannula 4.00 08/26/17 16:30 92 Nasal Cannula 4.00 08/26/17 13:00 86 08/26/17 11:02 93 Nasal Cannula 4.00 08/26/17 09:00 Nasal Cannula 4.00 I & O 08/27/17 07:00 Intake Total 1190 ml Balance 1190 ml Capillary Refill : General Appearance: No Apparent Distress, WD/WN Results Lab Laboratory Tests 08/26/17 10:30: Erythrocyte Sedimentation Rate 94H, C-Reactive Protein High Sensitivity 0.35, Thyroid Stimulating Hormone (TSH) 5.77H Assessment/Plan Assessment/Plan Assess & Plan/Chief Complaint Debility. Respiratory failure with hypoxia. History of acute GA. . 08/21/17. Debility. Short of breath. History of recent acute GA. Patient states she's feeling a little better. . . Debility. Short of breath. Recent GA. Patient received IV Lasix yesterday. BNP more elevated. . 08/25/17. Debility. Shortness of breath. History of acute GA. Patient feels breathing treatments is helping some. . 08/26/17. Debility. Short of breath. Myocardial infarction recently. Right ankle hurting. . . Debility. Patient's right ankle doing better. X-ray negative. Chest x-ray stable. Patient states she had a better night with steroids Clinical Quality Measures DVT/VTE Risk/Contraindication: Risk Factor Score Per Nursin RFS Level Per Nursing on Admit: 2=Moderate ABRAM BRITT DO Aug 27, 2017 08:36
--- NOTE | 2017-08-27 09:08 | Progress Note-Cardiology ---
Cardiology SOAP Progress Note Subjective: Up to the shower. She feels her SOB is somewhat better than yesterday, but continues to get SOB with strenuous exertion. No c/o CP or palpitations. No c/ o syncope or near syncope. Objective: I&O/Vital Signs Vital Sign - Last 12Hours 08/27/17 08/27/17 08/27/17 08/27/17 01:00 04:45 07:00 07:28 Temp 96.9 Pulse 74 74 88 Resp 20 B/P (MAP) 98/57 (71) Pulse Ox 94 91 O2 Delivery Nasal Cannula Nasal Cannula O2 Flow Rate 4.00 4.00 08/27/17 08/27/17 08:08 09:40 Pulse 89 B/P (MAP) 115/71 (86) O2 Delivery Nasal Cannula O2 Flow Rate 4.00 Intake and Output 08/27/17 00:00 Intake Total 940 ml Balance 940 ml Weight (Pounds): 130 Weight (Ounces): 2.0 Weight (Calculated Kilograms): 58.590694 Constitutional: AAO x 3 Respiratory: other (diminished bases bilat) Cardiovascular: regular rate-rhythm, S1 and S2 Gastrointestional: No tender, soft, round, audible bowel sounds Extremities: No clubbing, No cyanosis, no lower extremity edema bilateral Neurologic/Psychiatric: grossly intact Skin: No rash on exposed areas, No ulcerations on exposed areas Results/Procedures: Labs Laboratory Tests 08/26/17 10:30: Erythrocyte Sedimentation Rate 94H, C-Reactive Protein High Sensitivity 0.35, Thyroid Stimulating Hormone (TSH) 5.77H Laboratory Tests 08/26/17 05:05 A/P: Assessment: Bibasilar pulmonary infiltrates: CHF vs atelectasis vs pneumonia; unchanged on CT of 08/25/17 Acute diastolic CHF Echo of 08/21/17: LVEF 60-65%, grade I rouse dysfunction, no significant pericard eff or valvular heart disease, PASP [address] mmHg Status post acute [address] elevation myocardial infarction involving the inferior wall associated with RV infarct. Coronary artery disease, status post cardiac catheterization done by Dr. Pinon on 08/04/17: Mid vessel occlusion of the right coronary artery treated with overlapping stents (Alpine Xience 2.75 x 28 mm the distal part of which extends slightly into the right ventricular branch) and Alpine Xience 2.75 x 12 mm stent that was placed through the expanded struts of the previous stent and overlaps the previous stent to some degree. There is no significant residual stenosis in the right coronary artery and the flow was normal, but right ventricular branch was lost during the procedure due to infarct-related thrombus. A 90% to 95% stenosis of the proximal left circumflex artery, which was treated with stenting with Alpine Xience 2.25 x 12 mm stent with reduction of stenosis to 0% residual. The left anterior descending artery has diffuse mild -to-moderate disease Well preserved global left ventricular systolic function with ejection fraction 60%, postero-basal hypokinesis, no significant mitral regurgitation and mild elevation of left ventricular end-diastolic pressure on LHC of 08/04/17 Paroxysmal atrial fib/flutter, currently in sinus rhythm, had episodes of atrial fibrillation/flutter within 48 hours her myocardial infarction, has since been maintaining sinus rhythm - OAC has been withheld Anemia, stool for occult blood is negative. H&H are better Hypotension - likely d/t RV infarct, improved Thrombocytopenia, improved, unlikely to be HIT, followed and managed by Dr. Diaz TSH 0.26 on lab of 08-05-17 - suggestive of hyperthyroidism Elevated transaminases likely d/t STEMI, now back to normal Elevated ESR, followed and treated by Pulm and Med Svce Plan: We would like to thank for his assistance Continue current card regimen Monitor lab Physician Assessment Physician Assessment Feels somewhat better. Shortness of breath modestly improved. No cp or palp or syncope Lungs: bibasilar coarse crackles Cor: reg Ext: no c/c/e A&R * As documented in our note above that I updated (italics) at the time of this writing and as noted below * Continue current regimen and monitor labs from time to time * Appreciate Dr Quan's assistance * Dr Bailey covering Card Svce until 09/01/17. Please call as needed * Med Svce consult for elevated ESR ABHISHEK BANDA SERVICE GREETER Aug 27, 2017 09:08 [facility] PINON [facility] Aug 27, 2017 10:07
--- NOTE | 2017-08-27 10:11 | PM & R (SOAP) Progress Note ---
Subjective Time Seen by Provider: 08:00 Subjective/Events-last exam Patient was seen in her room this AM Appreciate DR delgadillo and Cardiology notes and orders TSH elavated-will f/u with DR boyd PCP re this Patient Modified Independent for transfers and SOB improved with Steroids but CXR remains with bilateral infiltrates. Review of Systems Pulmonary: Dyspnea Objective Exam Last Set of Vital Signs Vital Signs Date Time Temp Pulse Resp B/P (MAP) Pulse Ox O2 Delivery O2 Flow Rate FiO2 08/27/17 09:40 Nasal Cannula 4.00 08/27/17 08:08 89 115/71 (86) 08/27/17 07:28 91 08/27/17 04:45 96.9 20 Capillary Refill : I&O Intake and Output 08/27/17 00:00 Intake Total 1040 ml Balance 1040 ml Intake Oral 940 ml IV Total 100 ml # Voids 7 # Bowel Movements 2 General: Alert, Oriented X3, No Acute Distress HEENT: Atraumatic, PERRLA, EOMI, Mucous Memb Moist/[place] Neck: Supple, No JVD Lungs: Clear to Auscultation Heart: Regular Rate Abdomen: Normal Bowel Sounds, Soft, No Tenderness Extremities: No Edema Neuro: Other (generalized weakness) Results Lab Laboratory Tests 08/25/17 06:30: White Blood Count 5.5, Red Blood Count 3.24L, Hemoglobin 10.0L, Hematocrit 30L, Mean Corpuscular Volume 93, Mean Corpuscular Hemoglobin 31, Mean Corpuscular Hemoglobin Concent 33, Red Cell Distribution Width 12.4, Platelet Count 236, Mean Platelet Volume 10.2, Neutrophils (%) (Auto) 46, Lymphocytes (%) (Auto) 22 , Monocytes (%) (Auto) 11, Eosinophils (%) (Auto) 20H, Basophils (%) (Auto) 1, Neutrophils # (Auto) 2.6, Lymphocytes # (Auto) 1.2, Monocytes # (Auto) 0.6, Eosinophils # (Auto) 1.1H, Basophils # (Auto) 0.0, Neutrophils % (Manual) 58, Lymphocytes % (Manual) 16, Monocytes % (Manual) 9, Eosinophils % (Manual) 17, Basophils % (Manual) 0, Band Neutrophils 0, Polychromasia SLIGHT, Poikilocytosis SLIGHT, Tear Drop Cells SLIGHT, Sodium Level 133L, Potassium Level 4.2, Chloride Level 97L, Carbon Dioxide Level 30, Anion Gap 6, Blood Urea Nitrogen 7, Creatinine 0.61, Estimat Glomerular Filtration Rate > 60, BUN/ Creatinine Ratio 11, Glucose Level 111H, Calcium Level 8.7, Magnesium Level 1.8 , Total Bilirubin 0.5, Aspartate Amino Transf (AST/SGOT) 18, Alanine Aminotransferase (ALT/SGPT) 15, Alkaline Phosphatase 58, Total Protein 6.8, Albumin 3.2 08/26/17 05:05: White Blood Count 6.6, Red Blood Count 3.42L, Hemoglobin 10.7L, Hematocrit 32L, Mean Corpuscular Volume 94, Mean Corpuscular Hemoglobin 31, Mean Corpuscular Hemoglobin Concent 33, Red Cell Distribution Width 12.8, Platelet Count 260, Mean Platelet Volume 10.7H, Sodium Level 135, Potassium Level 4.2, Chloride Level 97L, Carbon Dioxide Level 25, Anion Gap 13, Blood Urea Nitrogen 4L, Creatinine 0.65, Estimat Glomerular Filtration Rate > 60, BUN/Creatinine Ratio 6 , Glucose Level 104, Calcium Level 9.1, Magnesium Level 1.7L 08/26/17 10:30: Erythrocyte Sedimentation Rate 94H, C-Reactive Protein High Sensitivity 0.35, Thyroid Stimulating Hormone (TSH) 5.77H Assessment/Plan Assessment General debil s/p acute ST elevation MD involving the inferior wall associated with RV infarct Anemia Bilateral pleural effusions with 02 dependence with improved pleural effusions but still with bilateral lower lobe infiltrates Thrombocytopenia improved followed by hematology Post mi PAF resolved Acute diastolic CHF being treated by Cardiology Elevated Transaminases likely due to STEMI continue to monitor Elevated TSH Plan Continue PT/OT F/U with Cardiology and PCP and Avelina Discussed case with DR Moe last evening Appreciate Dr delgadillo note and orders Will f/u re studies ordered Team Conference later today-See report for full functional update and POC and ELOS F/U with PCP DR Boyd Re elevated TSH MIRIAN PARKER MD Aug 27, 2017 10:11
--- NOTE | 2017-08-27 10:51 | Pulmonary Progress Note ---
Subjective Time Seen by Provider: 10:49 Subjective/Events-last exam Pt still has SOB. Exam Exam Vital Signs Date Time Temp Pulse Resp B/P (MAP) Pulse Ox O2 Delivery O2 Flow Rate FiO2 08/27/17 09:40 Nasal Cannula 4.00 08/27/17 08:08 89 115/71 (86) 08/27/17 07:28 91 Nasal Cannula 4.00 08/27/17 07:00 88 08/27/17 04:45 96.9 74 20 98/57 (71) 94 Nasal Cannula 4.00 08/27/17 01:00 74 08/26/17 20:40 Nasal Cannula 4.00 08/26/17 20:16 96 Nasal Cannula 4.00 08/26/17 19:00 90 08/26/17 18:00 97.4 93 18 114/70 (85) 97 Nasal Cannula 4.00 08/26/17 16:30 92 Nasal Cannula 4.00 08/26/17 13:00 86 08/26/17 11:02 93 Nasal Cannula 4.00 I & O 08/27/17 07:00 Intake Total 1190 ml Balance 1190 ml General Appearance: WD/WN, Mild Distress HEENT: Normal ENT Inspection Neck: Normal Inspection Respiratory: Decreased Breath Sounds, Other (Short of breath 2) Cardiovascular: Regular Rate, Rhythm Gastrointestinal: non tender, soft Extremity: Normal Capillary Refill, Normal Inspection Neurologic/Psychiatric: Alert, Oriented x3 Results Lab Laboratory Tests 08/26/17 05:05 Assessment/Plan Assessment/Plan Bilateral pulmonary infiltrates - No leukocytosis, no fever -EF is 60-65% -Check ESR, CRP, BRETT, RF -Start solumedrol 125mg IV X 1 then 40 IV Q 6 -repeat CXR Diastolic CHF -Pt has been getting Lasix Hypothyroid -restart Synthroid No hx of tobacco use 233 JUANA WILLS DO Aug 27, 2017 10:51
--- NOTE | 2017-08-27 11:00 | Physical Therapy Daily Note ---
PT Daily Note-Current Subjective Pt. states she feels she is breathing better today and thinks maybe that is b/c she is on 4 L O2 today. wonders if she will have to use O2 at home. Pain Numeric Pain Scale: 0-No Pain Mental Status Patient Orientation: Normal For Age Attachments: Oxygen (4.5L) Transfers Functional [place] Measure 0=Not Assessed/NA 4=Minimal Assistance 1=Total Assistance 5=Supervision or Setup 2=Maximal Assistance 6=Modified [place] 3=Moderate Assistance 7=Complete IndependenceIRFPAI Quality Coding Scale 6 Independent with activity with or without an assistive device 5 Patient requires set up or clean up by helper. Patient completes activity by themselves 4 Supervision or touching assist (CGA). [place] provide cues , steadying assist 3 The helper provides less than half the effort to complete the activity 2 The helper provides more than half the effort to complete the activity 1 Dependent. The helper does all the effort to complete an activity 7 Patient refused to complete or attempt activity 9 The patient did not perform the activity before the current illness or injury 88 Not attempted due to Medical conditions or safety concerns Transfers (B, C, W/C) (FIM): 7 Scootin Rollin Roll Left to Right (QC): 7 Supine to/from Sit: 7 Sit to/from Stand: 7 Sit to Lying (QC): 7 Sit to Stand (QC): 7 Chair/Kbl-jn-Rygif Xfer(QC): 7 Bed to/from Chair: 7 Car Transfer (QC): 7 Weight Bearing Right Lower Extremity: Right Full Weight Bearing Left Lower Extremity: Left Full Weight Bearing Gait Training Does the Patient Walk?: Yes Gait (FIM): 6 Distance (FIM): 3=150 ft (175,50x3) Walk 10 feet (QC): 6 Walk 50 ft with 2 Turns(QC): 6 Walk 150 ft (QC): 6 Walking 10ft/uneven surface-QC: 6 Gait Level of Assist: 6 Gait Persons Needed: 0 Gait Assistive Device: FWW pt. requires assist for O2 portable Stair Training Stair Training: Handrails/: 2 handrails Stairs (FIM): 6 #of Steps: 12 1 Step (curb) (QC): 6 4 Steps (QC): 6 12 Steps (QC): 6 Stairs: Pattern: Reciprocal Level of Assist: 6 assist only to manage O2 tubing Balance Picking up an Object (QC): 6 Exercises Supine Ex: Quad Set, Heel Slides, Short Arc Quads, Scooting, Straight leg raise , Hip abd/add Supine Reps: 12 Seated Therapy Exercises: Ankle pumps, Sit to stand, Long arc quads, Hip flexion Seated Reps: 12 Assessment Current Status: Good Progress pt. continues O2 dependent and desats to 82% after 175 ft gait, required 1-2 mins to recover back to 96%. this was repeated as pt attempted any task but recovered each time, HR 90BPM PT Insulator Apprentice Goals Shelter Goals PT Insulator Apprentice Goals Time Frame: Sep 12, 2017 Transfers (B,C,W/C) (FIM): 6 Sit to Lying (QC): 6 Lying-Sitting on Side/Bed(QC): 6 Sit to Stand (QC): 6 Rollin Roll Left to Right (QC): 6 Chair/Jkh-tm-Wqxzx Xfer(QC): 6 Car Transfer (QC): 6 Gait (FIM): 7 Gait distance (FIM): 3=150 ft Distance: 250' Walk 10 feet (QC): 6 Walk 10ft-Uneven Surface(QC): 6 Walk 50ft with 2 Turns (QC): 6 Walk 150 ft (QC): 6 Gait Level of Assist: 7 Gait Assistive Device: None, Cane Single Point Stairs (FIM): 6 # of Steps: 12 1 Step (curb) (QC): 6 4 Steps (QC): 6 12 Steps (QC): 6 Stairs Level Of Assist: 6 Picking up an Object (QC): 6 PT Plan Treatment/Plan Treatment Plan: Continue Plan of Care Treatment Plan: Bed Mobility, Education, Functional Activity Herb, Functional Strength, Group Therapy, Gait, Safety, Therapeutic Exercise, Transfers Treatment Duration: Sep 12, 2017 Frequency: At least 5 of 7 days/Wk (IRF) Estimated Hrs Per Day: 1.5 hours per day Patient and/or Family Agrees t: Yes Safety Risks/Education Patient Education: Gait Training, Transfer Techniques, Steps, Correct Positioning, Disease Process, Safety Issues Teaching Recipient: Patient Teaching Methods: Demonstration, Discussion Response to Teaching: Verbalize Understanding, Return Demonstration Time/GCodes Time In: 1000 Time Out: 1100 Total Billed Treatment Time: 60 Total Billed Treatment 1,GT15m,FA25m,EX20m G Codes Necessary: No BRET GONZALEZ A HYDROGEN OPERATOR Aug 27, 2017 11:00
[2017-08-27] MEDS: ENOXAPARIN 40 MG/0.4 ML (LOVENOX) SYR SC SCH (11:12)
[2017-08-27] MEDS: MAGNESIUM 1 GM/100 ML IVPB 100 ML IV SCH ×2 (11:12→12:24)
--- NOTE | 2017-08-27 13:25 | Occupational Ther Daily Note ---
OT Current Status-Daily Note Subjective Pt. reports being out of breath. Appearance Pt. in bed. States that she slept better last night. Agreed to shower this date. Mental Status/Objective Patient Orientation: Person, Place Functional [place] Measure 0=Not Assessed/NA 4=Minimal Assistance 1=Total Assistance 5=Supervision or Setup 2=Maximal Assistance 6=Modified [place] 3=Moderate Assistance 7=Complete [place] ADL-Treatment Functional [place] Measure 0=Not Assessed/NA 4=Minimal Assistance 1=Total Assistance 5=Supervision or Setup 2=Maximal Assistance 6=Modified [place] 3=Moderate Assistance 7=Complete IndependenceIRFPAI Quality Coding Scale 6 Independent with activity with or without an assistive device 5 Patient requires set up or clean up by helper. Patient completes activity by themselves 4 Supervision or touching assist (CGA). [place] provide cues , steadying assist 3 The helper provides less than half the effort to complete the activity 2 The helper provides more than half the effort to complete the activity 1 Dependent. The helper does all the effort to complete an activity 7 Patient refused to complete or attempt activity 9 The patient did not perform the activity before the current illness or injury 88 Not attempted due to Medical conditions or safety concerns Grooming (FIM): 5 (Pt. was able to comb her own hair today.) Bathing (FIM): 5 (SBA in shower.) Shower/Bathe Self (QC): 4 Upper Body (FIM): 5 Upper Body Dressing (QC): 4 Lower Body Dressing (FIM): 5 Lower Body Dressing (QC): 4 On/Off Footwear (QC): 4 Toileting (FIM): 5 Toileting Hygiene (QC): 4 Transfers (B, C, W/C) (FIM): 5 Toilet/Commode Transfer (FIM): 5 Toilet Transfer (QC): 4 Shower Transfer(FIM): 5 Other Treatment Pt. is able to complete all tasks with SBA, with increased time needed. Pt. is on 4 L 02, but feels out of breath. Pt. requires increased time throughout treatment. After ADLs, pt. ambulated to therapy gym with several brief rest breaks. Pt. completed 5 minutes on armbike to increase overall strength. Ambulated back to room. All needs met. Education OT Patient Education: Modified ADL techniques, Progress toward Goal/Update tx plan, Purpose of tx/functional activities, Reviewed precautions, Rehab process, Transfer techniques Teaching Recipient: Patient Teaching Methods: Demonstration, Discussion Response to Teaching: Verbalize Understanding, Return Demonstration OT Short Term Goals Short Term Goals 1=Demonstrate adherence to instructed precautions during ADL tasks. 2=Patient will verbalize/demonstrate understanding of assistive devices/ modifications for ADL. 3=Patient will improve strength/tolerance for activity to enable patient to perform ADL's. OT Half-Way Goals Database Developer Goals Time Frame: Sep 01, 2017 Eating (FIM): 6 Eating (QC): 6 Groomin Oral Hygiene (QC): 6 Bathing(FIM): 5 Shower/Bathe Self (QC): 5 Upper Body Dressing(FIM): 6 Upper Body Dressing (QC): 6 Lower Body Dressing(FIM): 6 Lower Body Dressing (QC): 6 On/Off Footwear (QC): 6 Toileting(FIM): 6 Toileting Hygiene (QC): 6 Transfers (B,C,W/C) (FIM): 6 Toilet/Commode Transfer(FIM): 6 Toilet/Commode Transfer (QC): 6 Shower Transfer(FIM): 5 Additional Goals: 1-Demonstrate ADL Tasks, 2-Verbalize Understanding, 3- ImproveStrength/Herb 1=Demonstrate adherence to instructed precautions during ADL tasks. 2=Patient will verbalize/demonstrate understanding of assistive devices/ modifications for ADL. 3=Patient will improve strength/tolerance for activity to enable patient to perform ADL's. OT Education/Plan Problem List/Assessment Assessment: Decreased Activ Tolerance, Impaired I ADL's, Impaired Self-Care Skills Discharge Recommendations Plan/Recommendations: Continue POC Therapy D/C Recommendations: Home w/ Family Support Treatment Plan/Plan of Care Treatment,Training & Education: Yes Patient would benefit from OT for education, treatment and training to promote independence in ADL's, mobility, safety and/or upper extremity function for ADL' s. Plan of Care: ADL Retraining, Functional Mobility, UE Funct Exercise/Act Treatment Duration: Sep 01, 2017 Frequency: At least 5 of 7 days/Wk (IRF) Estimated Hrs Per Day: 1.5 hours per day Agreement: Yes Rehab Potential: Good Time/GCodes Start Time: 08:30 Stop Time: 09:30 Total Time Billed (hr/min): 60 Billed Treatment Time 1, ADL x 45minutes, Ex x 15minutes MORGAN DIAZ OT Aug 27, 2017 13:25
--- NOTE | 2017-08-27 14:31 | Therapy Group Daily Note ---
Therapy Daily Group Note Patient Education Topic Exercises (benefits of exercise, memory strategies, rehab process review), Other List Below Exercises LE Seated Exercise, UE Exercise Other/Notes Pt. participated in group PT OT session. Pt. ambulated to from with FWW and assist for portable O2. Pt. introduced herself and was social with others. Pts. participated in self lead exercise via written illustrated exercise cards that were distributed to each patient. Memory strategies and matching activity was conducted with all pts using bag toss to indicate the matches assembled on the floor. Pt. to room after Rx. Cele at hand Start Time: 13:00 Stop Time: 14:15 Total Billed Treatment Time: 75 Total Billed Treatment 1,GRP BRET GONZALEZ COMPUTER TECHNOLOGY TRAINER Aug 27, 2017 14:31
[2017-08-27 18:57] VITALS: BP 97/56
[2017-08-27] MEDS: ATORVASTATIN 80 MG (LIPITOR) TABLET PO SCH (20:32)
[2017-08-28 05:46] LABS: BUN/CREATININE RATIO 22; CARBON DIOXIDE 27 MMOL/L (21-32); CHLORIDE 95 MMOL/L (98-107); CREATININE SERUM 0.74 MG/DL (0.60-1.30); GFR ESTIMATED > 60; GLUCOSE 188 MG/DL (70-105); MAGNESIUM 2.6 MG/DL (1.8-2.4); POTASSIUM 4.9 MMOL/L (3.6-5.0); SODIUM 133 MMOL/L (135-145)
[2017-08-28] MEDS: methylPREDNISolone 40 MG/ML (Solu-MEDROL) VIAL IV SCH ×3 (06:07→17:18)
[2017-08-28] MEDS: LEVOTHYROXINE 75 MCG (LEVOTHROID) TABLET PO SCH (06:07)
[2017-08-28] MEDS: LACTOBACILLUS Acidoph/Bulgar (LACTINEX/FLORANEX) TAB PO SCH ×3 (06:07→15:39)
[2017-08-28] MEDS: PANTOPRAZOLE 40 MG (PROTONIX) TAB PO SCH (06:09)
[2017-08-28 06:44] VITALS: BP 121/79
[2017-08-28] MEDS: CHOLESTYRAMINE 4 GM (QUESTRAN LITE, PREVALITE) PKT PO SCH ×5 (06:51→21:38)
[2017-08-28] MEDS: RT-ALBUTEROL SULF 2.5 MG/3 ML PRE-MIX VIAL INH SCH ×4 (07:40→18:45)
[2017-08-28] MEDS: NYSTATIN CREAM (MYCOSTATIN) 30 GM TUBE TP SCH ×3 (08:01→20:39)
[2017-08-28] MEDS: FUROSEMIDE 40 MG (LASIX) TAB PO SCH (08:01)
[2017-08-28] MEDS: KCL 10 MEQ TAB (MICRO K) PO SCH (08:01)
[2017-08-28] MEDS: ASPIRIN E.C. 81 MG (ECOTRIN) TAB PO SCH (08:01)
[2017-08-28] MEDS: MENTHOL/ZINC OXIDE (CALMOSEPTINE) 113 GM TUBE TOP PRN (08:01)
[2017-08-28] MEDS: CLOPIDOGREL 75 MG (PLAVIX) TABLET PO SCH (08:01)
--- NOTE | 2017-08-28 08:17 | Progress Note (SOAP) ---
Subjective Time Seen by Provider: 08:05 Subjective/Events-last exam Patient feeling better. Patient states she's breathing better. Patient feels the breathing treatments and cortisone helping Objective Exam Vital Signs Date Time Temp Pulse Resp B/P (MAP) Pulse Ox O2 Delivery O2 Flow Rate FiO2 08/28/17 07:40 95 Nasal Cannula 3.00 08/28/17 07:00 87 08/28/17 06:44 97.9 77 17 121/79 (93) 98 Nasal Cannula 3.00 08/28/17 01:00 75 08/27/17 20:30 Nasal Cannula 3.00 08/27/17 19:00 99 08/27/17 18:57 97.4 92 20 97/56 (70) 97 08/27/17 18:57 93 Nasal Cannula 3.00 08/27/17 15:11 95 Nasal Cannula 3.00 08/27/17 13:00 89 08/27/17 11:12 96 Nasal Cannula 4.00 08/27/17 09:40 Nasal Cannula 4.00 I & O 08/28/17 07:00 Intake Total 1400 ml Balance 1400 ml Capillary Refill : General Appearance: No Apparent Distress, Thin HEENT: Normal ENT Inspection Neck: Normal Inspection Respiratory: No Accessory Muscle Use, No Respiratory Distress Cardiovascular: Regular Rate, Rhythm, No Murmur Results Lab Laboratory Tests 08/28/17 05:05: Sodium Level 133L, Potassium Level 4.9, Chloride Level 95L, Carbon Dioxide Level 27, Anion Gap 11, Blood Urea Nitrogen 16, Creatinine 0.74, Estimat Glomerular Filtration Rate > 60, BUN/Creatinine Ratio 22, Glucose Level 188H, Calcium Level 9.0, Magnesium Level 2.6H, C-Reactive Protein High Sensitivity 0.15 Assessment/Plan Assessment/Plan Assess & Plan/Chief Complaint Debility. Respiratory failure with hypoxia. History of acute VT. . 08/21/17. Debility. Short of breath. History of recent acute VT. Patient states she's feeling a little better. . . Debility. Short of breath. Recent VT. Patient received IV Lasix yesterday. BNP more elevated. . 08/25/17. Debility. Shortness of breath. History of acute VT. Patient feels breathing treatments is helping some. . 08/26/17. Debility. Short of breath. Myocardial infarction recently. Right ankle hurting. . . Debility. Patient's right ankle doing better. X-ray negative. Chest x-ray stable. Patient states she had a better night with steroids. . 08/28/17. Debility. Patient states she's breathing better. History of VT. History of pneumonia. Patient in the right direction Clinical Quality Measures DVT/VTE Risk/Contraindication: Risk Factor Score Per Nursin RFS Level Per Nursing on Admit: 2=Moderate ABRAM BRITT DO Aug 28, 2017 08:17
--- NOTE | 2017-08-28 09:23 | Pulmonary Progress Note ---
Subjective Time Seen by Provider: 06:32 Subjective/Events-last exam No complications noted. Exam Exam Vital Signs Date Time Temp Pulse Resp B/P (MAP) Pulse Ox O2 Delivery O2 Flow Rate FiO2 08/28/17 07:40 95 Nasal Cannula 3.00 08/28/17 07:00 87 08/28/17 06:44 97.9 77 17 121/79 (93) 98 Nasal Cannula 3.00 08/28/17 01:00 75 08/27/17 20:30 Nasal Cannula 3.00 08/27/17 19:00 99 08/27/17 18:57 97.4 92 20 97/56 (70) 97 08/27/17 18:57 93 Nasal Cannula 3.00 08/27/17 15:11 95 Nasal Cannula 3.00 08/27/17 13:00 89 08/27/17 11:12 96 Nasal Cannula 4.00 08/27/17 09:40 Nasal Cannula 4.00 I & O 08/28/17 07:00 Intake Total 1400 ml Balance 1400 ml General Appearance: No Apparent Distress, Thin HEENT: Normal ENT Inspection Neck: Normal Inspection Respiratory: No Accessory Muscle Use, No Respiratory Distress Cardiovascular: Regular Rate, Rhythm, No Murmur Gastrointestinal: non tender, soft Results Lab Laboratory Tests 08/28/17 05:05 Assessment/Plan Assessment/Plan Bilateral pulmonary infiltrates - No leukocytosis, no fever -EF is 60-65% -ESR, CRP, BRETT, RF -Start solumedrol 125mg IV X 1 then 40 IV Q 6 -repeat CXR Diastolic CHF -Pt has been getting Lasix Hypothyroid -restart Synthroid No hx of tobacco use 232 JUANA WILLS DO Aug 28, 2017 09:23
--- NOTE | 2017-08-28 10:06 | Diagnostic Imaging Report ---
INDICATION: Pulmonary infiltrates. COMPARISON: 08/26/2017. FINDINGS: There is cardiomegaly. There is some venous congestion. There is no pleural effusion or pneumothorax. There is persistent diffuse airspace disease in the lungs bilaterally, right greater than left. IMPRESSION: Diffuse bilateral airspace disease, right greater than left. Cardiomegaly and some likely underlying central pulmonary venous congestion. Dictated by: Dictated on workstation # [id number]
--- NOTE | 2017-08-28 10:24 | PM & R (SOAP) Progress Note ---
Subjective Time Seen by Provider: 09:40 Subjective/Events-last exam Patient was seen in her room this AM Appreciate DR Isabel porter and orders and cxr report Patient doing better on IV solumedrol-Patient may go home tomorrow.Patient Independent for transfers Objective Exam Last Set of Vital Signs Vital Signs Date Time Temp Pulse Resp B/P (MAP) Pulse Ox O2 Delivery O2 Flow Rate FiO2 08/28/17 09:49 Nasal Cannula 3.00 08/28/17 07:40 95 08/28/17 07:00 87 08/28/17 06:44 97.9 17 121/79 (93) Capillary Refill : I&O Intake and Output 08/28/17 00:00 Intake Total 1050 ml Balance 1050 ml Intake Oral 850 ml IV Total 200 ml # Voids 5 # Bowel Movements 2 General: Alert, Oriented X3, No Acute Distress HEENT: Atraumatic, PERRLA, EOMI, Mucous Memb Moist/[place] Neck: Supple, No JVD Lungs: Clear to Auscultation Heart: Regular Rate Abdomen: Normal Bowel Sounds, Soft, No Tenderness Extremities: No Edema Neuro: Other (generalized weakness) Results Lab Laboratory Tests 08/26/17 05:05: White Blood Count 6.6, Red Blood Count 3.42L, Hemoglobin 10.7L, Hematocrit 32L, Mean Corpuscular Volume 94, Mean Corpuscular Hemoglobin 31, Mean Corpuscular Hemoglobin Concent 33, Red Cell Distribution Width 12.8, Platelet Count 260, Mean Platelet Volume 10.7H, Sodium Level 135, Potassium Level 4.2, Chloride Level 97L, Carbon Dioxide Level 25, Anion Gap 13, Blood Urea Nitrogen 4L, Creatinine 0.65, Estimat Glomerular Filtration Rate > 60, BUN/Creatinine Ratio 6 , Glucose Level 104, Calcium Level 9.1, Magnesium Level 1.7L 08/26/17 10:30: Erythrocyte Sedimentation Rate 94H, C-Reactive Protein High Sensitivity 0.35, Angiotensin Converting Enzyme 38, Thyroid Stimulating Hormone (TSH) 5.77H 08/28/17 05:05: Sodium Level 133L, Potassium Level 4.9, Chloride Level 95L, Carbon Dioxide Level 27, Anion Gap 11, Blood Urea Nitrogen 16, Creatinine 0.74, Estimat Glomerular Filtration Rate > 60, BUN/Creatinine Ratio 22, Glucose Level 188H, Calcium Level 9.0, Magnesium Level 2.6H, C-Reactive Protein High Sensitivity 0.15 Assessment/Plan Assessment General debil s/p acute ST elevation ND involving the inferior wall associated with RV infarct Anemia Bilateral pleural effusions with 02 dependence with improved pleural effusions but still with bilateral lower lobe infiltrates Thrombocytopenia improved followed by hematology Post mi PAF resolved Acute diastolic CHF being treated by Cardiology Elevated Transaminases likely due to STEMI continue to monitor Elevated TSH Plan Continue PT/OT F/U with Cardiology and PCP and Avelina Discussed case with DR Moe last evening Appreciate Dr delgadillo note and orders Will f/u re studies ordered Team Conference held yesterday-See report for full functional update and POC and ELOS F/U with PCP DR Boyd Re elevated TSH-done Synthroid restarted Possible discharge for tomorrow-Will f/u with staff re this MIRIAN PARKER MD Aug 28, 2017 10:24
--- NOTE | 2017-08-28 11:16 | Physical Therapy Daily Note ---
PT Daily Note-Current Subjective Patient in recliner pre tx, agrees to PT, no complaints of pain. Appearance Patient in recliner post tx, has nurse call, phone, tray, all needs met. Mental Status Patient Orientation: Normal For Age Attachments: Oxygen 3L of O2 nasal canula Transfers Functional [place] Measure 0=Not Assessed/NA 4=Minimal Assistance 1=Total Assistance 5=Supervision or Setup 2=Maximal Assistance 6=Modified [place] 3=Moderate Assistance 7=Complete IndependenceIRFPAI Quality Coding Scale 6 Independent with activity with or without an assistive device 5 Patient requires set up or clean up by helper. Patient completes activity by themselves 4 Supervision or touching assist (CGA). [place] provide cues , steadying assist 3 The helper provides less than half the effort to complete the activity 2 The helper provides more than half the effort to complete the activity 1 Dependent. The helper does all the effort to complete an activity 7 Patient refused to complete or attempt activity 9 The patient did not perform the activity before the current illness or injury 88 Not attempted due to Medical conditions or safety concerns Transfers (B, C, W/C) (FIM): 6 Scootin Rollin Roll Left to Right (QC): 6 Supine to/from Sit: 6 Sit to/from Stand: 6 Sit to Lying (QC): 6 Sit to Stand (QC): 6 Chair/Eut-el-Gzdsy Xfer(QC): 6 Bed to/from Chair: 6 Car Transfer (QC): 6 Patient is independent with bed mobility and mod I with transfers. Car transfer mod I. Weight Bearing Right Lower Extremity: Right Full Weight Bearing Left Lower Extremity: Left Full Weight Bearing Gait Training Gait (FIM): 6 Distance: 200', 150' Walk 10 feet (QC): 6 Walk 50 ft with 2 Turns(QC): 6 Walk 150 ft (QC): 6 Walking 10ft/uneven surface-QC: 6 Gait Assistive Device: FWW Patient can ambulate 200' with a rolling walker with mod I, including 50' with at least 2 turns of 90 degrees and 10' over an uneven surface. Wheelchair Training Does the Pt Use a Wheelchair?: No Stair Training Stair Training: Handrails/: 2 handrails Stairs (FIM): 5 #of Steps: 8 1 Step (curb) (QC): 6 4 Steps (QC): 6 Stairs: Pattern: Step to Patient can go up and down 8 steps using 2 handrails with mod I. Balance Picking up an Object (QC): 6 Exercises Standing: Heel/toe raises, Marching, Mini squats Standing Reps: 20 NuStep Minutes: 15 NuStep Workload: 5 Treatments bed mobility and transfer training, functional strengthening, stair training, gait training, Assessment Current Status: Fair Progress Patient's O2 level went down to 82% from 95% after ambulating 200' and while on 3L of O2 on nasal canula. Patient needs intermittent rest breaks to catch her breath. PT [facility] Goals Gas Meter Repair Supervisor Goals PT Gas Meter Repair Supervisor Goals Time Frame: Sep 12, 2017 Transfers (B,C,W/C) (FIM): 6 Sit to Lying (QC): 6 Lying-Sitting on Side/Bed(QC): 6 Sit to Stand (QC): 6 Rollin Roll Left to Right (QC): 6 Chair/Qpj-tz-Jvfwf Xfer(QC): 6 Car Transfer (QC): 6 Gait (FIM): 7 Gait distance (FIM): 3=150 ft Distance: 250' Walk 10 feet (QC): 6 Walk 10ft-Uneven Surface(QC): 6 Walk 50ft with 2 Turns (QC): 6 Walk 150 ft (QC): 6 Gait Level of Assist: 7 Gait Assistive Device: None, Cane Single Point Stairs (FIM): 6 # of Steps: 12 1 Step (curb) (QC): 6 4 Steps (QC): 6 12 Steps (QC): 6 Stairs Level Of Assist: 6 Picking up an Object (QC): 6 PT Plan Problem List Problem List: Activity Tolerance, Functional Strength, Safety, Balance, Gait, Transfer Treatment/Plan Treatment Plan: Continue Plan of Care Treatment Plan: Bed Mobility, Education, Functional Activity Herb, Functional Strength, Group Therapy, Gait, Safety, Therapeutic Exercise, Transfers Treatment Duration: Sep 12, 2017 Frequency: At least 5 of 7 days/Wk (IRF) Estimated Hrs Per Day: 1.5 hours per day Patient and/or Family Agrees t: Yes Safety Risks/Education Patient Education: Gait Training, Transfer Techniques, Steps, Correct Positioning, Safety Issues Teaching Recipient: Patient Teaching Methods: Demonstration, Discussion Response to Teaching: Reinforcement Needed Time/GCodes Time In: 1030 Time Out: 1115 Total Billed Treatment Time: 45 Total Billed Treatment 1 visit EX 25' GT 20' ROHIT TAYLOR PT Aug 28, 2017 11:16
[2017-08-28] MEDS: ENOXAPARIN 40 MG/0.4 ML (LOVENOX) SYR SC SCH (11:17)
--- NOTE | 2017-08-28 14:42 | Physical Therapy Daily Note ---
PT Daily Note-Current Subjective Patient in recliner pre tx, agrees to PT, no complaints of pain. Appearance Patient on toilet post tx, has nurse call. Mental Status Patient Orientation: Normal For Age Attachments: Oxygen 3L of O2 nasal canula Transfers Functional [place] Measure 0=Not Assessed/NA 4=Minimal Assistance 1=Total Assistance 5=Supervision or Setup 2=Maximal Assistance 6=Modified [place] 3=Moderate Assistance 7=Complete IndependenceIRFPAI Quality Coding Scale 6 Independent with activity with or without an assistive device 5 Patient requires set up or clean up by helper. Patient completes activity by themselves 4 Supervision or touching assist (CGA). [place] provide cues , steadying assist 3 The helper provides less than half the effort to complete the activity 2 The helper provides more than half the effort to complete the activity 1 Dependent. The helper does all the effort to complete an activity 7 Patient refused to complete or attempt activity 9 The patient did not perform the activity before the current illness or injury 88 Not attempted due to Medical conditions or safety concerns Transfers (B, C, W/C) (FIM): 6 Supine to/from Sit: 6 Bed to/from Chair: 6 Weight Bearing Right Lower Extremity: Right Full Weight Bearing Left Lower Extremity: Left Full Weight Bearing Gait Training Gait (FIM): 6 Distance: 150'x2 Gait Assistive Device: FWW Exercises Supine Ex: Bridging, Ankle pumps, Quad Set, Glut sets, Heel Slides, Short Arc Quads, Straight leg raise, Hip abd/add Supine Reps: 20 Seated Therapy Exercises: Ankle pumps, Hip flexion, Hip abd/add Seated Reps: 20 LAQ alternating for 5 min, sit to stand x10 Treatments transfers, ambulation, functional strengthening Assessment Current Status: Fair Progress good mobility, gwendolyn treatment well PT Home Housekeeper Goals Home Housekeeper Goals PT Home Housekeeper Goals Time Frame: Sep 12, 2017 Transfers (B,C,W/C) (FIM): 6 Sit to Lying (QC): 6 Lying-Sitting on Side/Bed(QC): 6 Sit to Stand (QC): 6 Rollin Roll Left to Right (QC): 6 Chair/Tto-oz-Naeig Xfer(QC): 6 Car Transfer (QC): 6 Gait (FIM): 7 Gait distance (FIM): 3=150 ft Distance: 250' Walk 10 feet (QC): 6 Walk 10ft-Uneven Surface(QC): 6 Walk 50ft with 2 Turns (QC): 6 Walk 150 ft (QC): 6 Gait Level of Assist: 7 Gait Assistive Device: None, Cane Single Point Stairs (FIM): 6 # of Steps: 12 1 Step (curb) (QC): 6 4 Steps (QC): 6 12 Steps (QC): 6 Stairs Level Of Assist: 6 Picking up an Object (QC): 6 PT Plan Problem List Problem List: Activity Tolerance, Functional Strength, Safety, Balance, Gait, Transfer Treatment/Plan Treatment Plan: Continue Plan of Care Treatment Plan: Bed Mobility, Education, Functional Activity Herb, Functional Strength, Group Therapy, Gait, Safety, Therapeutic Exercise, Transfers Treatment Duration: Sep 12, 2017 Frequency: At least 5 of 7 days/Wk (IRF) Estimated Hrs Per Day: 1.5 hours per day Patient and/or Family Agrees t: Yes Safety Risks/Education Patient Education: Gait Training, Transfer Techniques, Correct Positioning, Safety Issues Teaching Recipient: Patient Teaching Methods: Demonstration, Discussion Response to Teaching: Reinforcement Needed Time/GCodes Time In: 1400 Time Out: 1445 Total Billed Treatment Time: 45 Total Billed Treatment 1 visit GT 15' EX 30' ROHIT TAYLOR PT Aug 28, 2017 14:41
--- NOTE | 2017-08-28 15:05 | Occupational Ther Daily Note ---
OT Current Status-Daily Note Subjective No pain reported. Pt. states that she if feeling better today. Appearance Pt. up in chair. Agrees to spongebathe, as the shower is not working correctly. Mental Status/Objective Patient Orientation: Person, Place, Time, Situation Functional [place] Measure 0=Not Assessed/NA 4=Minimal Assistance 1=Total Assistance 5=Supervision or Setup 2=Maximal Assistance 6=Modified [place] 3=Moderate Assistance 7=Complete [place] Attachments: IV ADL-Treatment Functional [place] Measure 0=Not Assessed/NA 4=Minimal Assistance 1=Total Assistance 5=Supervision or Setup 2=Maximal Assistance 6=Modified [place] 3=Moderate Assistance 7=Complete IndependenceIRFPAI Quality Coding Scale 6 Independent with activity with or without an assistive device 5 Patient requires set up or clean up by helper. Patient completes activity by themselves 4 Supervision or touching assist (CGA). [place] provide cues , steadying assist 3 The helper provides less than half the effort to complete the activity 2 The helper provides more than half the effort to complete the activity 1 Dependent. The helper does all the effort to complete an activity 7 Patient refused to complete or attempt activity 9 The patient did not perform the activity before the current illness or injury 88 Not attempted due to Medical conditions or safety concerns Eating (FIM): 7 Eating (QC): 6 Grooming (FIM): 6 Oral Hygiene (QC): 6 Bathing (FIM): 5 (Set up/SBA due to oxygen and SOA.) Shower/Bathe Self (QC): 4 Upper Body (FIM): 6 Upper Body Dressing (QC): 6 Lower Body Dressing (FIM): 6 Lower Body Dressing (QC): 6 On/Off Footwear (QC): 6 Toileting (FIM): 6 Toileting Hygiene (QC): 6 Transfers (B, C, W/C) (FIM): 6 (Pt. utilizes walker for all ambulation.) Toilet/Commode Transfer (FIM): 6 Toilet Transfer (QC): 6 Shower Transfer(FIM): 5 Other Treatment After ADLs in room, pt. ambulated to therapy gym. Completed 10 minutes on armbike with multiple rest breaks. Pt. on 3 L 02. Sats monitored throughout session. Sats would drop to 88% with exertion, but then come up to 95% after several minutes. Pt. ambulated back to room with all needs met. Education OT Patient Education: Correct positioning, Exercise program, Modified ADL techniques, Progress toward Goal/Update tx plan, Purpose of tx/functional activities, Reviewed precautions, Rehab process, Transfer techniques Teaching Recipient: Patient Teaching Methods: Demonstration, Discussion Response to Teaching: Verbalize Understanding, Return Demonstration OT Short Term Goals Short Term Goals 1=Demonstrate adherence to instructed precautions during ADL tasks. 2=Patient will verbalize/demonstrate understanding of assistive devices/ modifications for ADL. 3=Patient will improve strength/tolerance for activity to enable patient to perform ADL's. OT Fpc Goals Fpc Goals Time Frame: Sep 01, 2017 Eating (FIM): 6 Eating (QC): 6 Groomin Oral Hygiene (QC): 6 Bathing(FIM): 5 Shower/Bathe Self (QC): 5 Upper Body Dressing(FIM): 6 Upper Body Dressing (QC): 6 Lower Body Dressing(FIM): 6 Lower Body Dressing (QC): 6 On/Off Footwear (QC): 6 Toileting(FIM): 6 Toileting Hygiene (QC): 6 Transfers (B,C,W/C) (FIM): 6 Toilet/Commode Transfer(FIM): 6 Toilet/Commode Transfer (QC): 6 Shower Transfer(FIM): 5 Additional Goals: 1-Demonstrate ADL Tasks, 2-Verbalize Understanding, 3- ImproveStrength/Herb 1=Demonstrate adherence to instructed precautions during ADL tasks. 2=Patient will verbalize/demonstrate understanding of assistive devices/ modifications for ADL. 3=Patient will improve strength/tolerance for activity to enable patient to perform ADL's. OT Education/Plan Problem List/Assessment Assessment: Decreased Activ Tolerance, Impaired I ADL's, Impaired Self-Care Skills Discharge Recommendations Plan/Recommendations: Continue POC Therapy D/C Recommendations: Home w/ Family Support, Occupational Therapy Home Care Treatment Plan/Plan of Care Treatment,Training & Education: Yes Patient would benefit from OT for education, treatment and training to promote independence in ADL's, mobility, safety and/or upper extremity function for ADL' s. Plan of Care: ADL Retraining, Functional Mobility, UE Funct Exercise/Act Treatment Duration: Sep 01, 2017 Frequency: At least 5 of 7 days/Wk (IRF) Estimated Hrs Per Day: 1.5 hours per day Agreement: Yes Rehab Potential: Good Time/GCodes Start Time: 09:15 Stop Time: 10:15 Total Time Billed (hr/min): 60 Billed Treatment Time 1, ADL x 45minutes, Ex x 15minutes MORGAN DIAZ OT Aug 28, 2017 15:05
--- NOTE | 2017-08-28 15:11 | Occupational Ther Daily Note ---
OT Current Status-Daily Note Subjective No pain reported. Appearance Pt. up in chair. Agrees to work with OT. Ambulated to therapy gym. Mental Status/Objective Patient Orientation: Person, Place Functional [place] Measure 0=Not Assessed/NA 4=Minimal Assistance 1=Total Assistance 5=Supervision or Setup 2=Maximal Assistance 6=Modified [place] 3=Moderate Assistance 7=Complete [place] Attachments: IV ADL-Treatment Functional [place] Measure 0=Not Assessed/NA 4=Minimal Assistance 1=Total Assistance 5=Supervision or Setup 2=Maximal Assistance 6=Modified [place] 3=Moderate Assistance 7=Complete IndependenceIRFPAI Quality Coding Scale 6 Independent with activity with or without an assistive device 5 Patient requires set up or clean up by helper. Patient completes activity by themselves 4 Supervision or touching assist (CGA). [place] provide cues , steadying assist 3 The helper provides less than half the effort to complete the activity 2 The helper provides more than half the effort to complete the activity 1 Dependent. The helper does all the effort to complete an activity 7 Patient refused to complete or attempt activity 9 The patient did not perform the activity before the current illness or injury 88 Not attempted due to Medical conditions or safety concerns Other Treatment Pt. ambulated to therapy gym. Completed armbike x 10 minutes with several brief rest breaks. Pt. on 3 L 02. OT monitored saturations. O2 sats consistently at 93-95%. Pt. tolerated treatment well. Ambulated back to room. All needs met. Education OT Patient Education: Correct positioning, Exercise program, Progress toward Goal/Update tx plan, Purpose of tx/functional activities, Reviewed precautions, Rehab process, Transfer techniques Teaching Recipient: Patient Teaching Methods: Demonstration, Discussion Response to Teaching: Verbalize Understanding, Return Demonstration OT Short Term Goals Short Term Goals 1=Demonstrate adherence to instructed precautions during ADL tasks. 2=Patient will verbalize/demonstrate understanding of assistive devices/ modifications for ADL. 3=Patient will improve strength/tolerance for activity to enable patient to perform ADL's. OT Freezing Room Worker Goals Freezing Room Worker Goals Time Frame: Sep 01, 2017 Eating (FIM): 6 Eating (QC): 6 Groomin Oral Hygiene (QC): 6 Bathing(FIM): 5 Shower/Bathe Self (QC): 5 Upper Body Dressing(FIM): 6 Upper Body Dressing (QC): 6 Lower Body Dressing(FIM): 6 Lower Body Dressing (QC): 6 On/Off Footwear (QC): 6 Toileting(FIM): 6 Toileting Hygiene (QC): 6 Transfers (B,C,W/C) (FIM): 6 Toilet/Commode Transfer(FIM): 6 Toilet/Commode Transfer (QC): 6 Shower Transfer(FIM): 5 Additional Goals: 1-Demonstrate ADL Tasks, 2-Verbalize Understanding, 3- ImproveStrength/Herb 1=Demonstrate adherence to instructed precautions during ADL tasks. 2=Patient will verbalize/demonstrate understanding of assistive devices/ modifications for ADL. 3=Patient will improve strength/tolerance for activity to enable patient to perform ADL's. OT Education/Plan Problem List/Assessment Assessment: Decreased Activ Tolerance, Impaired I ADL's, Impaired Self-Care Skills Discharge Recommendations Plan/Recommendations: Continue POC Therapy D/C Recommendations: Home w/ Family Support, Occupational Therapy Home Care Treatment Plan/Plan of Care Treatment,Training & Education: Yes Patient would benefit from OT for education, treatment and training to promote independence in ADL's, mobility, safety and/or upper extremity function for ADL' s. Plan of Care: ADL Retraining, Functional Mobility, UE Funct Exercise/Act Treatment Duration: Sep 01, 2017 Frequency: At least 5 of 7 days/Wk (IRF) Estimated Hrs Per Day: 1.5 hours per day Agreement: Yes Rehab Potential: Good Time/GCodes Start Time: 13:00 Stop Time: 13:30 Total Time Billed (hr/min): 30 Billed Treatment Time 1, EX x 2 MORGAN DIAZ OT Aug 28, 2017 15:11
[2017-08-28 17:58] VITALS: BP 112/67
--- NOTE | 2017-08-28 18:10 | D/C HH Face to Face Order ---
D/C Face to Face Orders Instructions for Patient Patient Instructions/FollowUp: Dr. Deb Quan on 09/09 at 845a Physician to follow Patient: Dr. Boyd Discharge Diet for Home: Cardiac Diet Patient Data-Allergies,Ht & Wt Patient Allergies: Coded Allergies: No Known Drug Allergies (Unverified , 08/03/17) Height (Feet): 5 Height (Inches): 0.00 Weight (Pounds): 131 Weight (Ounces): 4.0 Home Health Need/Face to Face Date of Face to Face: Aug 29, 2017 Clinical Findings: Generalized weakness and fatigue, Muscle weakness, Shortness of breath, Unsteady gait I have seen Pt [id number]: Yes Discharged To: Home Diagnosis/Conditions: Debility post respiratory failure with Hypoxia. Post Stemi Problems/Diagnosis/Condition: Patient is Homebound due to: Muscle weakness, Shortness of breath/distress Homebound Status Due to the above stated illness, injury or surgical procedure (medical condition or diagnosis) and associated clinical findings, the patient is homebound because of his/her inability to leave home except with aid of a supportive device and/or person AND leaving the home requires a considerable and taxing effort or is medically contraindicated. Pt req the following assistanc: Walker Home Health Nursing Orders Home Health Services Order: Nursing Services, Director Heart-Evaluate & Treat, Physical Therapy-Evaluate & Treat RN to monitor O2 sats and respiratory distress Home Health Infusion Therapy Line Type: Saline Lock Site Location: Forearm Therapy Orders Therapy Orders: Physical Therapy Therapy Specific Orders: Eval assistive deivces, Teach enviro modifications/ safety, Gait training, Increase strength/endurance Certify Stmt I certify that this patient is under my care and that I, a nurse practitioner or a physician; a library services assistant working with me, had a face to face encounter that - meets the physician face to face encounter requirements with this patient as dated. I personally scribed for MIRIAN PARKER MD ([email or web address]) on 08/25/17 at 11:45. Electronically submitted by Brii Feliciano ([id number]). I personally scribed for MIRIAN PARKER MD) on 08/27/17 at 11:22. Electronically submitted by Brii Feliciano ([id number]). I personally scribed for MIRIAN PARKER MD ([facility]) on 08/28/17 at 18:10. Electronically submitted by Brii Feliciano ([id number]). MIRIAN PARKER MD Aug 25, 2017 11:45
[2017-08-28] MEDS: ATORVASTATIN 80 MG (LIPITOR) TABLET PO SCH (20:39)
[2017-08-29] MEDS: methylPREDNISolone 40 MG/ML (Solu-MEDROL) VIAL IV SCH (00:17)
[2017-08-29 06:00] VITALS: BP 109/66
--- NOTE | 2017-08-29 06:02 | Pulmonary Progress Note ---
Subjective Time Seen by Provider: 06:35 Subjective/Events-last exam pt feels improved. No complications noted. Exam Exam Vital Signs Date Time Temp Pulse Resp B/P (MAP) Pulse Ox O2 Delivery O2 Flow Rate FiO2 08/29/17 01:00 69 08/28/17 21:00 Nasal Cannula 3.00 08/28/17 19:00 91 08/28/17 18:46 93 Nasal Cannula 3.00 08/28/17 17:58 97.5 90 20 112/67 (82) 93 Nasal Cannula 2.00 08/28/17 15:29 95 3.00 08/28/17 15:15 95 Nasal Cannula 3.00 08/28/17 13:00 89 08/28/17 09:49 Nasal Cannula 3.00 08/28/17 07:40 95 Nasal Cannula 3.00 08/28/17 07:00 87 08/28/17 06:44 97.9 77 17 121/79 (93) 98 Nasal Cannula 3.00 I & O 08/29/17 07:00 Intake Total 970 ml Balance 970 ml General Appearance: No Apparent Distress, Thin HEENT: Normal ENT Inspection Neck: Normal Inspection Respiratory: No Accessory Muscle Use, No Respiratory Distress Cardiovascular: Regular Rate, Rhythm, No Murmur Gastrointestinal: non tender, soft Results Lab Laboratory Tests 08/28/17 05:05 Assessment/Plan Assessment/Plan Bilateral pulmonary infiltrates - No leukocytosis, no fever -EF is 60-65% -ESR, CRP, BRETT, RF -solumedrol change to prednisone taper -repeat CXR Diastolic CHF -Pt has been getting Lasix Hypothyroid -restart Synthroid No hx of tobacco use Pt will probably need home oxygen upon discharge. 232 JUANA WILLS DO Aug 29, 2017 06:02
[2017-08-29] MEDS: PANTOPRAZOLE 40 MG (PROTONIX) TAB PO SCH (06:30)
[2017-08-29] MEDS: LEVOTHYROXINE 75 MCG (LEVOTHROID) TABLET PO SCH (06:30)
[2017-08-29] MEDS: LACTOBACILLUS Acidoph/Bulgar (LACTINEX/FLORANEX) TAB PO SCH (06:30)
[2017-08-29] MEDS: CHOLESTYRAMINE 4 GM (QUESTRAN LITE, PREVALITE) PKT PO SCH (06:32)
[2017-08-29] MEDS: RT-ALBUTEROL SULF 2.5 MG/3 ML PRE-MIX VIAL INH SCH (06:53)
[2017-08-29] MEDS ORDERED: RT-ADVAIR HFA 115/21 MCG PER PUFF IH SCH (08:00)
--- NOTE | 2017-08-29 08:02 | Progress Note (SOAP) ---
Subjective Time Seen by Provider: 08:00 Subjective/Events-last exam Patient to be discharged today. Patient had a good night last night. Talked to and patient about breathing and pulse ox. Patient to get to machine for pulse ox Objective Exam Vital Signs Date Time Temp Pulse Resp B/P (MAP) Pulse Ox O2 Delivery O2 Flow Rate FiO2 08/29/17 07:00 77 08/29/17 06:56 80 Nasal Cannula 2.00 08/29/17 06:00 97.6 76 21 109/66 (80) 94 Nasal Cannula 2.00 08/29/17 01:00 69 08/28/17 21:00 Nasal Cannula 3.00 08/28/17 19:00 91 08/28/17 18:46 93 Nasal Cannula 3.00 08/28/17 17:58 97.5 90 20 112/67 (82) 93 Nasal Cannula 2.00 08/28/17 15:29 95 3.00 08/28/17 15:15 95 Nasal Cannula 3.00 08/28/17 13:00 89 08/28/17 09:49 Nasal Cannula 3.00 I & O 08/29/17 07:00 Intake Total 1570 ml Balance 1570 ml Capillary Refill : General Appearance: No Apparent Distress HEENT: Normal ENT Inspection Neck: Full Range of Motion Assessment/Plan Assessment/Plan Assess & Plan/Chief Complaint Debility. Respiratory failure with hypoxia. History of acute CO. . 08/21/17. Debility. Short of breath. History of recent acute CO. Patient states she's feeling a little better. . . Debility. Short of breath. Recent CO. Patient received IV Lasix yesterday. BNP more elevated. . 08/25/17. Debility. Shortness of breath. History of acute CO. Patient feels breathing treatments is helping some. . 08/26/17. Debility. Short of breath. Myocardial infarction recently. Right ankle hurting. . . Debility. Patient's right ankle doing better. X-ray negative. Chest x-ray stable. Patient states she had a better night with steroids. . 08/28/17. Debility. Patient states she's breathing better. History of CO. History of pneumonia. Patient in the right direction Clinical Quality Measures DVT/VTE Risk/Contraindication: Risk Factor Score Per Nursin RFS Level Per Nursing on Admit: 2=Moderate ABRAM BRITT DO Aug 29, 2017 08:02
[2017-08-29] MEDS ORDERED: METO-387 PO (08:09)
[2017-08-29] MEDS ORDERED: ATOR80TA76 PO (08:09)
[2017-08-29] MEDS ORDERED: POTA10TA6 PO (08:09)
[2017-08-29] MEDS ORDERED: FURO40TA4 PO (08:09)
[2017-08-29] MEDS ORDERED: ASPI-999 PO (08:09)
[2017-08-29] MEDS ORDERED: CLOP75TA28 PO (08:09)
--- NOTE | 2017-08-29 08:10 | PM & R (SOAP) Progress Note ---
Subjective Time Seen by Provider: 07:45 Subjective/Events-last exam Patient was seen in her room this AM Discussed case with RN and Resp therapy Dr Quan has switched patient over to po Prednisone in anticipation of discharge today to home with spouse and HHC.Current meds reviewed Objective Exam Last Set of Vital Signs Vital Signs Date Time Temp Pulse Resp B/P (MAP) Pulse Ox O2 Delivery O2 Flow Rate FiO2 08/29/17 07:00 77 08/29/17 06:56 80 Nasal Cannula 2.00 08/29/17 06:00 97.6 21 109/66 (80) Capillary Refill : I&O Intake and Output 08/29/17 00:00 Intake Total 1570 ml Balance 1570 ml Intake Oral 1570 ml # Voids 6 # Bowel Movements 1 General: Alert, Oriented X3, No Acute Distress HEENT: Atraumatic, PERRLA, EOMI, Mucous Memb Moist/[place] Neck: Supple, No JVD Lungs: Clear to Auscultation Heart: Regular Rate Abdomen: Normal Bowel Sounds, Soft, No Tenderness Extremities: No Edema Neuro: Other (generalized weakness) Results Lab Laboratory Tests 08/26/17 10:30: Erythrocyte Sedimentation Rate 94H, C-Reactive Protein High Sensitivity 0.35, Angiotensin Converting Enzyme 38, Thyroid Stimulating Hormone (TSH) 5.77H 08/28/17 05:05: C-Reactive Protein High Sensitivity 0.15, Sodium Level 133L, Potassium Level 4.9 , Chloride Level 95L, Carbon Dioxide Level 27, Anion Gap 11, Blood Urea Nitrogen 16, Creatinine 0.74, Estimat Glomerular Filtration Rate > 60, BUN/ Creatinine Ratio 22, Glucose Level 188H, Calcium Level 9.0, Magnesium Level 2.6H , Anti-Nuclear Antibody Screen <1:80 Assessment/Plan Assessment General debil s/p acute ST elevation [place] involving the inferior wall associated with RV infarct Anemia Bilateral pleural effusions with 02 dependence with improved pleural effusions but still with bilateral lower lobe infiltrates-associated with SOB improved with steroids Thrombocytopenia improved followed by hematology Post mi PAF resolved Acute diastolic CHF being treated by Cardiology Elevated Transaminases likely due to STEMI continue to monitor Elevated TSH-Synthroid resumed Plan Discharge today to home with spouse and HHC Current meds reviewed F/U with PCP,Cardiology and Dr Quan See orders. MIRIAN PARKER MD Aug 29, 2017 08:10
[2017-08-29] MEDS: KCL 10 MEQ TAB (MICRO K) PO SCH (08:45)
[2017-08-29] MEDS: ASPIRIN E.C. 81 MG (ECOTRIN) TAB PO SCH (08:45)
[2017-08-29] MEDS: CLOPIDOGREL 75 MG (PLAVIX) TABLET PO SCH (08:47)
[2017-08-29] MEDS: FUROSEMIDE 40 MG (LASIX) TAB PO SCH (08:47)
[2017-08-29] MEDS ORDERED: predniSONE 10 MG TAB PO SCH (09:00)
[2017-08-29] MEDS ORDERED: FLUT12AE4 IH (09:31)
[2017-08-29] MEDS ORDERED: PRD10T PO (09:31)
[2017-08-29] MEDS ORDERED: LEVO75TA PO (10:07)
[2017-08-29 10:50] VITALS: BP 109/66
--- NOTE | 2017-08-29 11:40 | Therapy Team Discharge Summary ---
Therapy Discharge Summary Discharge Recommendations Date of Discharge Therapy D/C Recommendations: Home w/ Family Support, Occupational Therapy Home Care Physical Therapy Patient came to rehab with weakness/decreased ADL skills. Upon evaluation patient performed bed mobility and transfers with SBA, car transfer SBA, ambulated 100' with a rolling walker with SBA, and could go up and down 8 steps using 2 handrails with SBA. Patient has been performing bed mobility and transfer training, balance and endurance training, functional strengthening, stair training, gait training, and education. 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 Now, patient performs bed mobility with independence, transfers with mod I, car transfer with mod I, ambulates 200' with a rolling walker with mod I, including 50' with at least 2 turns of 90 degrees and 10' over an uneven surface, can go up and down 8 steps using 2 handrails with mod I, and can supervisor picking crew an object from the floor with mod I. Patient is discharging from this facility today and will be discharged from PT at this time. Occupational Therapy Decreased Activ Tolerance, Impaired I ADL's, Impaired Self-Care Skills PT Skilled Nursing Goals Skilled Nursing Goals PT Skilled Nursing Goals Time Frame: Sep 12, 2017 Transfers (B,C,W/C) (FIM): 6 Roll Left to Right (QC): 6 Sit to Lying (QC): 6 Lying-Sitting on Side/Bed(QC): 6 Sit to Stand (QC): 6 Chair/Hdi-yd-Yztxo Xfer(QC): 6 Car Transfer (QC): 6 Gait (FIM): 7 Gait distance (FIM): 3=150 ft Distance: 250' Walk 10 feet (QC): 6 Walk 10ft-Uneven Surface(QC): 6 Walk 50ft with 2 Turns (QC): 6 Walk 150 ft (QC): 6 Gait Level of Assist: 7 Gait Assistive Device: None, Cane Single Point Stairs (FIM): 6 # of Steps: 12 1 Step (curb) (QC): 6 4 Steps (QC): 6 12 Steps (QC): 6 Stairs Level Of Assist: 6 Picking up an Object (QC): 6 OT Line Haul Driver Goals Skilled Nursing Goals Time Frame: Sep 01, 2017 Eating (FIM): 6 Eating (QC): 6 Oral Hygiene (QC): 6 Grooming(FIM): 6 Bathing(FIM): 5 Shower/Bathe Self (QC): 5 Upper Body Dressing(FIM): 6 Upper Body Dressing (QC): 6 Lower Body Dressing(FIM): 6 Lower Body Dressing (QC): 6 On/Off Footwear (QC): 6 Toileting(FIM): 6 Toileting Hygiene (QC): 6 Transfers (B,C,W/C) (FIM): 6 Toilet/Commode Transfer(FIM): 6 Toilet/Commode Transfer (QC): 6 Shower Transfer(FIM): 5 Additional Goals: 1-Demonstrate ADL Tasks, 2-Verbalize Understanding, 3- ImproveStrength/Herb 1=Demonstrate adherence to instructed precautions during ADL tasks. 2=Patient will verbalize/demonstrate understanding of assistive devices/ modifications for ADL. 3=Patient will improve strength/tolerance for activity to enable patient to perform ADL's. ROHIT TAYLOR PT Aug 29, 2017 11:40
--- NOTE | 2017-09-01 14:49 | Therapy Team Discharge Summary ---
Therapy Discharge Summary Discharge Recommendations Date of Discharge Aug 29, 2017 at 10:50 Therapy D/C Recommendations: Home w/ Family Support, Occupational Therapy Home Care Occupational Therapy Pt. has been seen by occupational therapy to increase overall strength and independence. Pt. has met all goals. Pt. is able to complete ADLs with Mod I. Pt. is discharging home with family support and home health. Decreased Activ Tolerance, Impaired I ADL's, Impaired Self-Care Skills PT Prison Goals [employer] Principal Goals PT Prison Goals Time Frame: Sep 12, 2017 Transfers (B,C,W/C) (FIM): 6 Roll Left to Right (QC): 6 Sit to Lying (QC): 6 Lying-Sitting on Side/Bed(QC): 6 Sit to Stand (QC): 6 Chair/Qca-lm-Curbm Xfer(QC): 6 Car Transfer (QC): 6 Gait (FIM): 7 Gait distance (FIM): 3=150 ft Distance: 250' Walk 10 feet (QC): 6 Walk 10ft-Uneven Surface(QC): 6 Walk 50ft with 2 Turns (QC): 6 Walk 150 ft (QC): 6 Gait Level of Assist: 7 Gait Assistive Device: None, Cane Single Point Stairs (FIM): 6 # of Steps: 12 1 Step (curb) (QC): 6 4 Steps (QC): 6 12 Steps (QC): 6 Stairs Level Of Assist: 6 Picking up an Object (QC): 6 OT Prison Goals Prison Goals Time Frame: Sep 01, 2017 Eating (FIM): 6 (met) Eating (QC): 6 (met) Oral Hygiene (QC): 6 (met) Grooming(FIM): 6 (met) Bathing(FIM): 5 (met) Shower/Bathe Self (QC): 5 (met) Upper Body Dressing(FIM): 6 (met) Upper Body Dressing (QC): 6 (met) Lower Body Dressing(FIM): 6 (met) Lower Body Dressing (QC): 6 (met) On/Off Footwear (QC): 6 (met) Toileting(FIM): 6 (met) Toileting Hygiene (QC): 6 (met) Transfers (B,C,W/C) (FIM): 6 (met) Toilet/Commode Transfer(FIM): 6 (met) Toilet/Commode Transfer (QC): 6 (met) Shower Transfer(FIM): 5 (met) Additional Goals: 1-Demonstrate ADL Tasks, 2-Verbalize Understanding, 3- ImproveStrength/Herb 1=Demonstrate adherence to instructed precautions during ADL tasks. 2=Patient will verbalize/demonstrate understanding of assistive devices/ modifications for ADL. 3=Patient will improve strength/tolerance for activity to enable patient to perform ADL's. MORGAN DIAZ OT Sep 01, 2017 14:49
== END 2017-08-29 10:50 | disposition home health service (06) | DRG 280 ==
PROVIDERS: ADMIT Physical Medicine & Rehabilitation; ATTEND Physical Medicine & Rehabilitation
DX: I21.19 ST elevation (STEMI) myocardial infarction involving other coronary artery of inferior wall (principal); J90 Pleural effusion, not elsewhere classified; Z99.11 Dependence on respirator [ventilator] status; I25.10 Atherosclerotic heart disease of native coronary artery without angina pectoris; I11.0 Hypertensive heart disease with heart failure; I50.31 Acute diastolic (congestive) heart failure; I48.0 Paroxysmal atrial fibrillation; I48.92 Unspecified atrial flutter; D69.6 Thrombocytopenia, unspecified; E03.9 Hypothyroidism, unspecified; E87.1 Hypo-osmolality and hyponatremia; E87.6 Hypokalemia; E83.42 Hypomagnesemia; E87.8 Other disorders of electrolyte and fluid balance, not elsewhere classified; T50.2X5A Adverse effect of carbonic-anhydrase inhibitors, benzothiadiazides and other diuretics, initial encounter; D64.9 Anemia, unspecified
CPT/HCPCS: 36415; 71045; 71046; 71275; 73610; 80048; 80053; 82164; 83735; 83880; 84443; 85007; 85027; 85652; 86038; 86141; 93005; 93306; 94640; 94664; 94760; 94761

== ENCOUNTER → 2017-09-01 | Outpatient (CLI) | payer MEDICARE, OTHER ==
[~2017-09-01] MED LIST changes: +ACET325T49 PO; +ACID1TAB PO; +ATOR80TA76 PO; +CHOL4PAC3 PO; +CLOP75TA28 PO; +FAMO20TA5 PO; +FLUT12AE4 IH; +FURO40TA4 PO; +HYDR30CR69 TOP; +LEVO75TA PO; +LOPE2CAP PO; +MENT71OI TOP; +METO-333 PO; +METO-387 PO; +POTA10TA6 PO; +PRD10T PO
== END ==
LOC: HH 08:00
PROVIDERS: ATTEND Family Medicine
DX: I50.9 Heart failure, unspecified (principal)
CPT/HCPCS: 83880

== ENCOUNTER → 2017-09-05 | Outpatient (CLI) | payer MEDICARE, OTHER ==
[~2017-09-05] MED LIST changes: +ALBU18HF2 INH; +ATOR80TA64 PO; +AZAT50TA PO; +CALC1TAB29 PO; +CLOP75TA69 PO; +LEVO75TA6 PO; +LOSA25TA21 PO; +METF500T5 PO; +PRD20T PO; +PRED10TA22 PO; +SENN-109 PO; +SULF-222 PO; +VENL75CA PO
[2017-09-05 10:46] LABS: BASOPHILS % (AUTO) 0 % (0-10); EOSINOPHILS # (AUTO) 0.2 10^3/uL (0.0-0.3); EOSINOPHILS % (AUTO) 4 % (0-10); HEMATOCRIT 33 % (35-52); HEMOGLOBIN 10.7 G/DL (11.5-16.0); LYMPHOCYTES # (AUTO) 1.1 X 10^3 (1.0-4.0); LYMPHOCYTES % (AUTO) 22 % (12-44); MEAN CORPUSCULAR HEMOGLOBIN 32 PG (25-34); MEAN CORPUSCULAR HGB CONC 32 G/DL (32-36); MEAN CORPUSCULAR VOLUME 98 FL (80-99); MEAN PLATELET VOLUME 10.6 FL (7.4-10.4); MONOCYTES # (AUTO) 0.6 X 10^3 (0.0-1.0); MONOCYTES % (AUTO) 12 % (0-12); NEUTROPHILS # (AUTO) 3.3 X 10^3 (1.8-7.8); NEUTROPHILS % (AUTO) 63 % (42-75); PLATELET COUNT 199 10^3/uL (130-400); RED CELL DISTRIBUTION WIDTH 13.9 % (10.0-14.5); WHITE BLOOD COUNT 5.3 10^3/uL (4.3-11.0)
[2017-09-05 10:59] LABS: ALANINE AMINOTRANSFERASE 23 U/L (0-55); ALBUMIN 3.1 GM/DL (3.2-4.5); ALKALINE PHOSPHATASE 48 U/L (40-136); BILIRUBIN,TOTAL 0.9 MG/DL (0.1-1.0); BUN/CREATININE RATIO 20; CALCIUM 8.6 MG/DL (8.5-10.1); CARBON DIOXIDE 31 MMOL/L (21-32); CHLORIDE 97 MMOL/L (98-107); CHOLESTEROL 116 MG/DL (< 200); CREATININE SERUM 0.64 MG/DL (0.60-1.30); GFR ESTIMATED > 60; GLUCOSE 101 MG/DL (70-105); HDL CHOLESTEROL 46 MG/DL (40-60); MAGNESIUM 2.2 MG/DL (1.8-2.4); POTASSIUM 3.9 MMOL/L (3.6-5.0); SODIUM 136 MMOL/L (135-145); TOTAL PROTEIN 5.9 GM/DL (6.4-8.2); TRIGLYCERIDES 73 MG/DL (<150); VLDL CHOLESTEROL 15 MG/DL (5-40)
[2017-09-05 11:50] LABS: ERYTHROCYTE SEDIMENTATION RATE 26 MM/HR (0-30)
== END ==
LOC: HH 08:00
PROVIDERS: ATTEND Internal Medicine Cardiovascular Disease
DX: I25.10 Atherosclerotic heart disease of native coronary artery without angina pectoris (principal); E03.9 Hypothyroidism, unspecified
CPT/HCPCS: 80053; 80061; 83735; 84443; 85025; 85652; 86038; 86141; 86430

== ENCOUNTER → 2017-09-11 | Outpatient (CLI) | payer MEDICARE, OTHER ==
[2017-09-11 12:42] LABS: BUN/CREATININE RATIO 16; CREATININE SERUM 0.63 MG/DL (0.60-1.30); GFR ESTIMATED > 60
== END ==
LOC: LAB 12:07
PROVIDERS: ATTEND Nurse Practitioner Family
DX: J18.9 Pneumonia, unspecified organism (principal); J96.90 Respiratory failure, unspecified, unspecified whether with hypoxia or hypercapnia
CPT/HCPCS: 36415; 82565; 84520

== ENCOUNTER → 2017-09-18 | Outpatient (CLI) | payer MEDICARE, OTHER ==
[~2017-09-18] MED LIST changes: -ALBU18HF2 INH; -AZAT50TA PO; -CALC1TAB29 PO; -LEVO75TA6 PO; -LOSA25TA21 PO; -METF500T5 PO; -PRD20T PO; -SENN-109 PO; -SULF-222 PO; -VENL75CA PO
--- NOTE | 2017-09-18 10:34 | Diagnostic Imaging Report ---
INDICATION: Pneumonia and CHF. TIME OF EXAMINATION: 10:14 a.m. COMPARISON: Correlation is made with prior study from 08/28/2017. FINDINGS: The heart size is stable. Right hemidiaphragm is chronically elevated. Right-sided infiltrate persists but does appear to be improved since examination three weeks earlier. Left lung is fairly clear. No effusion or pneumothorax is identified. IMPRESSION: Improving right-sided infiltrate when compared with examination three weeks earlier. Dictated by: Dictated on workstation # [id number]
== END ==
LOC: RAD 09:44
PROVIDERS: ATTEND Family Medicine
DX: J18.9 Pneumonia, unspecified organism (principal); I50.9 Heart failure, unspecified
CPT/HCPCS: 71046

== ENCOUNTER → 2017-10-09 | Outpatient (CLI) | payer MEDICARE, OTHER ==
[~2017-10-09] MED LIST changes: +IOHEXOL 350 MG/ML 100 ML (OMNIPAQUE 350) VIAL IV ONE; +NS 250 ML (IVPB) BAG IV ONE
[2017-10-09 10:24] LABS: BUN/CREATININE RATIO 16; CREATININE SERUM 0.64 MG/DL (0.60-1.30); GFR ESTIMATED > 60
--- NOTE | 2017-10-09 12:38 | Diagnostic Imaging Report ---
PROCEDURE: CT chest with contrast only. TECHNIQUE: Multiple contiguous axial images were obtained through the chest after administration of intravenous contrast. INDICATION: Pneumonia. Comparison is made with prior CT chest from 08/25/2017. FINDINGS: No axillary lymphadenopathy is detected. No definite hilar or mediastinal lymphadenopathy is detected. No pericardial or pleural fluid is seen. There continue to be diffuse interstitial changes throughout both lungs, more prominent on the right when compared with prior study. Many of the groundglass opacities have improved since prior. No discrete mass is detected. Central airways are patent. Upper abdomen is unremarkable. IMPRESSION: Diffuse interstitial changes with some improving groundglass infiltrates when compared with CT study from 08/25/2017. Findings may be owing to improvement of acute on chronic disease. No new abnormality is detected. Dictated by: Dictated on workstation # [id number]
== END ==
LOC: RAD 09:48
PROVIDERS: ATTEND Nurse Practitioner Family
DX: J18.9 Pneumonia, unspecified organism (principal); J96.90 Respiratory failure, unspecified, unspecified whether with hypoxia or hypercapnia
CPT/HCPCS: 36415; 71260; 82565; 84520

== ENCOUNTER → 2017-10-30 | Outpatient (CLI) | payer MEDICARE, OTHER ==
[~2017-10-30] MED LIST changes: -IOHEXOL 350 MG/ML 100 ML (OMNIPAQUE 350) VIAL IV ONE; -NS 250 ML (IVPB) BAG IV ONE
[2017-11-01 05:41] LABS: RAGWEED RAST <0.35 kU/L (<0.35)
== END ==
LOC: LAB 14:52
PROVIDERS: ATTEND Nurse Practitioner Family
DX: J82 Pulmonary eosinophilia, not elsewhere classified (principal); R05 Cough; J18.9 Pneumonia, unspecified organism
CPT/HCPCS: 36415; 82784; 86003; 86606; 86612; 86628; 86635; 86698; 86703

== ENCOUNTER 2017-10-31 21:26 | Inpatient (IN) | payer MEDICARE, OTHER ==
[~2017-10-31] VITALS: Ht 152.4 cm; Wt 55.8 kg
[~2017-10-31 21:26] MED LIST changes: -ATOR80TA64 PO; -CLOP75TA69 PO; -PRED10TA22 PO
[2017-10-31] MEDS ORDERED: methylPREDNISolone 125 MG (Solu-MEDROL) VIAL IV STA (21:51)
[2017-10-31] MEDS ORDERED: ASPIRIN 81 MG CHEW (CHILDREN'S ASA) PO ONE ×2 (22:00)
[2017-10-31] MEDS ORDERED: DEXAMETHASONE 4 MG/ML SDV (DECADRON) IH ONE (22:00)
[2017-10-31] MEDS ORDERED: RT-ALBUTEROL/IPRATROPIUM 3 ML (DUONEB) VIAL INH ONE (22:00)
[2017-10-31 22:24] LABS: BASOPHILS % (AUTO) 0 % (0-10); EOSINOPHILS % (AUTO) 0 % (0-10); HEMATOCRIT 36 % (35-52); HEMOGLOBIN 12.5 G/DL (11.5-16.0); LYMPHOCYTES # (AUTO) 1.1 X 10^3 (1.0-4.0); LYMPHOCYTES % (AUTO) 14 % (12-44); MEAN CORPUSCULAR HEMOGLOBIN 32 PG (25-34); MEAN CORPUSCULAR HGB CONC 35 G/DL (32-36); MEAN CORPUSCULAR VOLUME 92 FL (80-99); MEAN PLATELET VOLUME 10.1 FL (7.4-10.4); MONOCYTES # (AUTO) 0.8 X 10^3 (0.0-1.0); MONOCYTES % (AUTO) 10 % (0-12); NEUTROPHILS # (AUTO) 6.1 X 10^3 (1.8-7.8); NEUTROPHILS % (AUTO) 76 % (42-75); PLATELET COUNT 195 10^3/uL (130-400); RED BLOOD COUNT 3.91 10^6/uL (4.35-5.85); RED CELL DISTRIBUTION WIDTH 13.3 % (10.0-14.5)
[2017-10-31 22:32] LABS: INR 1.2 (0.8-1.4); PROTHROMBIN TIME PATIENT 15.4 SEC (12.2-14.7)
[2017-10-31 22:36] LABS: ABG BASE EXCESS 4.8 MMOL/L (-2.5-2.5); ABG OXYGEN SATURATION 100 % (94-100); ABG PCO2 41 MMHG (35-45); ABG PH 7.46 (7.37-7.43); ABG PO2 192 MMHG (79-93); ABG TCO2 29.9 MMOL/L (21.0-31.0); ALLENS TEST POSITIVE; INSPIRED O2 10L; PATIENT TEMP 98.7; VENTILATOR NO
[2017-10-31 22:42] LABS: ALANINE AMINOTRANSFERASE 30 U/L (0-55); ALBUMIN 3.5 GM/DL (3.2-4.5); ALKALINE PHOSPHATASE 60 U/L (40-136); AMYLASE 40 U/L (25-125); BILIRUBIN,TOTAL 0.5 MG/DL (0.1-1.0); BUN/CREATININE RATIO 20; CARBON DIOXIDE 26 MMOL/L (21-32); CHLORIDE 102 MMOL/L (98-107); CREATINE KINASE 47 U/L (29-168); CREATININE SERUM 0.69 MG/DL (0.60-1.30); GFR ESTIMATED > 60; GLUCOSE 139 MG/DL (70-105); LIPASE 20 U/L (8-78); MAGNESIUM 2.1 MG/DL (1.8-2.4); POTASSIUM 4.6 MMOL/L (3.6-5.0); SODIUM 137 MMOL/L (135-145); TOTAL PROTEIN 6.7 GM/DL (6.4-8.2)
[2017-10-31] MEDS ORDERED: FUROSEMIDE 40 MG/4 ML INJ (LASIX) IVP ONE (22:45)
[2017-10-31 22:48] LABS: CREATINE KINASE MB 1.5 NG/ML (<6.6)
[2017-11-01] VITALS (24 sets, daily range): BP systolic 93–140; BP diastolic 54–77
[2017-11-01] MEDS ORDERED: RT-ALBUTEROL/IPRATROPIUM 3 ML (DUONEB) VIAL ONE (00:40)
[2017-11-01] MEDS ORDERED: BENZONATATE 100 MG (TESSALON) CAPSULE PO SCH (00:45)
[2017-11-01] MEDS ORDERED: RT-ALBUTEROL/IPRATROPIUM 3 ML (DUONEB) VIAL INH ONE (01:00)
[2017-11-01] MEDS ORDERED: methylPREDNISolone 125 MG (Solu-MEDROL) VIAL ONE (03:52)
[2017-11-01] MEDS ORDERED: FUROSEMIDE 40 MG/4 ML INJ (LASIX) ONE (03:52)
[2017-11-01] MEDS ORDERED: FUROSEMIDE 40 MG/4 ML INJ (LASIX) IVP ONE (04:00)
[2017-11-01] MEDS: methylPREDNISolone 125 MG (Solu-MEDROL) VIAL IVP SCH ×2 (04:01→04:06)
[2017-11-01] MEDS ORDERED: RT-ALBUTEROL/IPRATROPIUM 3 ML (DUONEB) VIAL INH PRN (05:15)
[2017-11-01 05:53] LABS: BASOPHILS % (AUTO) 0 % (0-10); EOSINOPHILS % (AUTO) 0 % (0-10); HEMATOCRIT 40 % (35-52); HEMOGLOBIN 13.3 G/DL (11.5-16.0); LYMPHOCYTES # (AUTO) 0.5 X 10^3 (1.0-4.0); LYMPHOCYTES % (AUTO) 6 % (12-44); MEAN CORPUSCULAR HEMOGLOBIN 30 PG (25-34); MEAN CORPUSCULAR HGB CONC 33 G/DL (32-36); MEAN CORPUSCULAR VOLUME 91 FL (80-99); MEAN PLATELET VOLUME 10.5 FL (7.4-10.4); MONOCYTES # (AUTO) 0.1 X 10^3 (0.0-1.0); MONOCYTES % (AUTO) 1 % (0-12); NEUTROPHILS # (AUTO) 7.6 X 10^3 (1.8-7.8); NEUTROPHILS % (AUTO) 93 % (42-75); PLATELET COUNT 209 10^3/uL (130-400); RED BLOOD COUNT 4.42 10^6/uL (4.35-5.85); RED CELL DISTRIBUTION WIDTH 13.5 % (10.0-14.5); WHITE BLOOD COUNT 8.2 10^3/uL (4.3-11.0)
[2017-11-01 06:17] LABS: ALANINE AMINOTRANSFERASE 34 U/L (0-55); ALBUMIN 3.8 GM/DL (3.2-4.5); ALKALINE PHOSPHATASE 65 U/L (40-136); BILIRUBIN,TOTAL 0.6 MG/DL (0.1-1.0); BUN/CREATININE RATIO 23; CALCIUM 9.2 MG/DL (8.5-10.1); CARBON DIOXIDE 25 MMOL/L (21-32); CHLORIDE 97 MMOL/L (98-107); CREATININE SERUM 0.73 MG/DL (0.60-1.30); GFR ESTIMATED > 60; GLUCOSE 215 MG/DL (70-105); POTASSIUM 3.7 MMOL/L (3.6-5.0); SODIUM 137 MMOL/L (135-145); TOTAL PROTEIN 7.4 GM/DL (6.4-8.2)
[2017-11-01 06:19] LABS: MAGNESIUM 1.9 MG/DL (1.8-2.4); PHOSPHORUS 3.8 MG/DL (2.3-4.7)
[2017-11-01 06:21] LABS: BAND NEUTROPHILS 0 %; BASOPHILS % (MANUAL) 0 %; EOSINOPHILS % (MANUAL) 0 %; LYMPHOCYTES % (MANUAL) 2 %; MONOCYTES % (MANUAL) 1 %; NEUTROPHILS % (MANUAL) 97 %
[2017-11-01 06:22] LABS: ELLIPT/OVALOCYTES SLIGHT; POIKILOCYTOSIS SLIGHT
--- NOTE | 2017-11-01 06:34 | Diagnostic Imaging Report ---
EXAMINATION: CHEST 1 VIEW, AP/PA ONLY INDICATION: Pneumonia. COMPARISON: Chest radiograph 09/18/2017. FINDINGS: Again seen are the diffuse interstitial and airspace opacities, greatest in the right upper lobe and left lung base. These have mildly progressed since prior exam. Cardiomegaly. Elevation of the right hemidiaphragm. No pleural effusion or pneumothorax. No acute osseous findings. IMPRESSION: Interval progression of the diffuse interstitial and airspace opacities. Dictated by: Dictated on workstation # [id number]
--- NOTE | 2017-11-01 07:03 | Pulmonary Consultation ---
History of Present Illness History of Present Illness Date of Consultation 11/01/17 06:58 Time Seen by Provider: 06:58 Date of Admission History of Present Illness 72yo with hx of ILD, diastolic CHF, CAD, recent NM, hospitalization secondary to respiratory failure presented to ED secondary to worsening SOB failed out patient treatment. Pt was seen in my office and was placed on Prednisone taper. She continue to worsen and presented to ED in acute respiratory distress. She received 80mg of IV lasix in ED and then again in ICU. PT is now improved however still very SOB with even minimal activity. She has had prior episodes similar to this. No f/NS/C. Allergies and Home Medications Allergies Coded Allergies: No Known Drug Allergies (Unverified , 08/03/17) Home Medications Aspirin 81 Mg Tab.chew, 81 MG PO DAILY Prescribed by: ABHISHEK BANDA on 08/29/17808 Atorvastatin Calcium 80 Mg Tablet, 80 MG PO HS Prescribed by: ABHISHEK BANDA on 08/29/17808 Calcium Citrate/Vitamin D3 1 Each Tablet, 1 TAB PO HS, (Reported) Clopidogrel Bisulfate 75 Mg Tablet, 75 MG PO DAILY Prescribed by: ABHISHEK BANDA on 08/29/17808 Fluticasone/Salmeterol 12 Gm Hfa.aer.ad, 2 PUFF IH BID@08,20 Prescribed by: MARIANA QUEVEDO on 08/29/17930 Furosemide 40 Mg Tablet, 40 MG PO DAILY Prescribed by: ABHISHEK BANDA on 08/29/17808 Levothyroxine Sodium 75 Mcg Tablet, 75 MCG PO DAILY@0630 Prescribed by: MARIANA QUEVEDO on 08/29/17 1007 Metoprolol Succinate 25 Mg Tab.er.24h, 25 MG PO DAILY Prescribed by: ABHISHEK BANDA on 08/29/17808 Potassium Chloride 10 Meq Tablet.er, 10 MEQ PO DAILY Prescribed by: ABHISHEK BANDA on 08/29/17808 Prednisone 10 Mg Tab, 60 MG PO DAILY Taper Dosage 60 mg Day 1 50 mg Day 2 50 mg Day 3 40 mg Day 4 40 mg Day 5 30 mg Day 6 30 mg Day 7 20 mg Day 8 20 mg Day 9 10 mg Day 10 Prescribed by: MARIANA QUEVEDO on 08/29/17930 Venlafaxine HCl 37.5 Mg Tab, 37.5 MG PO DAILY, (Reported) [Allbee W/ C] , 1 TAB PO 1800, (Reported) Past Mdqeklx-Kuytok-Yoonvy Hx Patient Social History Alcohol Use: Denies Use Recreational Drug Use: No Smoking Status: Never a Smoker 2nd Hand Smoke Exposure: No Recent Foreign Travel: No Contact w/Someone Who Travel: No Recent Infectious Disease Expo: No Recent Hopitalizations: No Physical Abuse: No Sexual Abuse: No Mistreated: No Fear: No Immunizations Up To Date Date of Pneumonia Vaccine: Apr 06, 2016 Date of Influenza Vaccine: Apr 06, 2017 Seasonal Allergies Seasonal Allergies: No Past Medical History Surgeries: Yes Section Respiratory: Yes Pneumonia Currently Using CPAP: No Currently Using BIPAP: No Cardiac: Yes High Cholesterol, Hypertension Neurological: No : No Female Reproductive Disorders: Denies Sexually Transmitted Disease: No HIV/AIDS: No Genitourinary: No Gastrointestinal: No Musculoskeletal: Yes Arthritis Endocrine: Yes (thyroid problems) Hypothyroidsim HEENT: No Loss of Vision: Denies Hearing Impairment: Denies Cancer: No Psychosocial: No Nursing Suicide Risk Score: 0 Integumentary: No Blood Disorders: No Adverse Reaction/Blood Tranf: No Family Medical History No Pertinent Family Hx Review of Systems Time Seen by Provider: 07:44 Constitutional: Weakness, Malaise; No: Fever, Chills, Sweats, Other Eyes: No: Pain, Vision change, Conjunctivae inflammation, Eyelid inflammation, Other, Redness ENT: No: Ear pain, Ear discharge, Nose pain, Nose discharge, Nose congestion, Mouth pain, Mouth swelling, Throat pain, Throat swelling, Other Respiratory: Cough, Dry, Shortness of breath, SOB with excertion; No: Wheezing , Hemoptysis Cardiovascular: Palpitations, Paroxysmal Noc. Dyspnea; No: Chest Pain, Orthopnea, Edema, Lt Headedness, Other Exam Exam Vital Signs Date Time Temp Pulse Resp B/P (MAP) Pulse Ox O2 Delivery O2 Flow Rate FiO2 11/01/17 06:00 69 23 102/61 (75) 95 Nasal Cannula 2.00 11/01/17 05:00 75 23 105/74 (84) 94 Nasal Cannula 2.00 11/01/17 04:00 97.9 77 23 117/74 (88) 97 Nasal Cannula 4.00 11/01/17 03:32 109 95 11/01/17 03:20 95 Nasal Cannula 4.00 11/01/17 03:00 81 22 117/74 (88) 98 OxyMask 4.00 11/01/17 02:00 84 28 118/66 (83) 98 OxyMask 4.00 11/01/17 01:55 OxyMask 4.00 11/01/17 01:39 OxyMask 4.00 11/01/17 01:22 109 11/01/17 01:20 98.0 90 32 140/67 (91) 95 OxyMask 6.00 11/01/17 01:04 OxyMask 6.00 11/01/17 00:45 89 OxyMask 7.00 10/31/17 22:33 95 OxyMask 5.00 10/31/17 21:44 98.5 93 30 127/76 (93) 77 Nasal Cannula 3.00 I & O 11/01/17 07:00 Intake Total 200 ml Output Total 1650 ml Balance -1450 ml General Appearance: Anxious, Mild Distress, Thin HEENT: Pharynx Normal Neck: Full Range of Motion, Non Tender, Supple Respiratory: Accessory Muscle Use, Decreased Breath Sounds Cardiovascular: Regular Rate, Rhythm Capillary Refill: Less Than 3 Seconds Gastrointestinal: normal bowel sounds, non tender, soft Extremity: Normal Capillary Refill, Normal Inspection Neurologic/Psychiatric: Alert Skin: Normal Color, Warm/Dry Lymphatic: No Adenopathy Results Lab Laboratory Tests 10/31/17 22:15 11/01/17 04:35 11/01/17 04:55 Assessment/Plan Assessment/Plan Acute on chronic respiratory failure -Improved with high dose lasix -SVNs ILD --Solumedrol decrease to 40 IV Q 6 CHFAE - hx of diastolic CHF EF 60% -continue lasix CAD with recent NM debility/weakness -PT/OT at bedside all questions answered. Labs and radiology reviewed. Code status was discussed. They will continue to discuss code status. Critical Care: Critically Ill Patient Time spent with patient (mins): 60 JUANA WILLS DO Nov 01, 2017 07:03
--- NOTE | 2017-11-01 07:46 | Diagnostic Imaging Report ---
INDICATION: Hypoxia. COMPARISON: 10/31/2017. FINDINGS: There is cardiomegaly and mild venous congestion. There is elevation of the right hemidiaphragm. There is no pleural effusion or pneumothorax. The mediastinum is unremarkable. There are unchanged diffuse interstitial and alveolar infiltrates. IMPRESSION: Unchanged diffuse interstitial alveolar infiltrates with likely underlying central pulmonary venous congestion. Dictated by: Dictated on workstation # [id number]
[2017-11-01] MEDS: RT-ALBUTEROL/IPRATROPIUM 3 ML (DUONEB) VIAL INH SCH ×3 (08:23→20:14)
[2017-11-01] MEDS: PANTOPRAZOLE 40 MG/10 ML (PROTONIX) VIAL IV SCH (08:25)
[2017-11-01] MEDS: ENOXAPARIN 40 MG/0.4 ML (LOVENOX) SYR SC SCH (08:25)
[2017-11-01] MEDS ORDERED: FAMOTIDINE 20 MG (PEPCID) TABLET PO SCH (09:00)
[2017-11-01] MEDS ORDERED: FUROSEMIDE 40 MG/4 ML INJ (LASIX) IVP SCH (09:00)
[2017-11-01] MEDS ORDERED: LIDOCAINE JELLY 2% (XYLOCAINE) 30 ML TUBE TOP ONE (10:47)
[2017-11-01] MEDS ORDERED: LIDOCAINE PF 1% 2 ML AMP INJ ONE (10:47)
[2017-11-01] MEDS ORDERED: LIDOCAINE 4% INJ (XYLOCAINE) 5ML AMP INJ ONE (10:47)
--- NOTE | 2017-11-01 11:56 | History & Physical-Hospitalist ---
History of Present Illness HPI/Chief Complaint CC: Dyspnea HPI: This is a 72-year-old white female known to me from lengthy hospital stay 3 months ago following a myocardial infarction status post stents deployed with subsequent lengthy hospital course for recovery that included pneumonia and respiratory insufficiency. 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 To note she did have a good recovery following inpatient rehabilitation and she was doing well at home doing laundry and housework so she had a near full recovery following the long hospital stay but last night she started feeling so badly she resented to the ER. Currently patient is maintaining good oxygen status although she does wear 2 L at home 16/12 but with any activity or exertion she does desaturate. Considering the severe desaturation with any activity she will maintain Tsang catheter today and maintain ICU status. I reviewed records from specialists and prior hospital stay. Source: patient Exam Limitations: no limitations Date Seen 11/01/17 Time Seen by Provider: 11:00 Attending Physician Ruth Carmona DO PCP Benny Boyd DO Referring Physician Date of Admission Oct 31, 2017 at 23:00 Home Medications & Allergies Home Medications Reviewed patient Home Medication Reconciliation performed by pharmacy medication reconciliations medical technician and/or nursing. Patients Allergies have been reviewed. Allergies Allergies Coded Allergies No Known Drug Allergies (Unverified08/03/17) Past Qnqhrgg-Ockvyc-Wsmlpi Hx Past Med/Social Hx: Reviewed Nursing Past Med/Soc Hx, Reviewed and Corrections made Patient Social History Marrital Status: Employed/Student: retired ([employer]) Alcohol Use: Denies Use Recreational Drug Use: No Smoking Status: Never a Smoker 2nd Hand Smoke Exposure: No Physical Abuse Screen: No Sexual Abuse: No Recent Foreign Travel: No Contact w/other who traveled: No Recent Hopitalizations: No Recent Infectious Disease Expo: No Immunizations Up To Date Date of Pneumonia Vaccine: Apr 06, 2016 Date of Influenza Vaccine: Apr 06, 2017 Seasonal Allergies Seasonal Allergies: No Past Medical History Surgeries: Section Respiratory: Asthma, Pneumonia Currently Using CPAP: No Currently Using BIPAP: No Cardiac: High Cholesterol, Hypertension : No Sexually Transmitted Disease: No HIV/AIDS: No Female Reproductive Disorders: Denies Musculoskeletal: Arthritis Endocrine: Hypothyroidsim Loss of Vision: Denies Hearing Impairment: Denies History of Blood Disorders: No Adverse Reaction to Blood Meza: No Family History No Pertinent Family Hx Review of Systems Constitutional: see HPI, dizziness, malaise, weakness EENTM: no symptoms reported Respiratory: cough, dyspnea on exertion, short of breath, wheezing Cardiovascular: no symptoms reported Gastrointestinal: nausea Genitourinary: no symptoms reported Musculoskeletal: no symptoms reported Skin: no symptoms reported Psychiatric/Neurological: Anxiety All Other Systems Reviewed Negative Unless Noted: Yes Physical Exam Physical Exam Vital Signs Vital Signs - First Documented 10/31/17 21:44 Temp 98.5 Pulse 93 Resp 30 B/P (MAP) 127/76 (93) Pulse Ox 77 O2 Delivery Nasal Cannula O2 Flow Rate 3.00 Capillary Refill : Less Than 3 Seconds General Appearance: WD/WN, Chronically ill, Mild Distress Eyes: Bilateral Eye Normal Inspection, Bilateral Eye PERRL HEENT: PERRL/EOMI, Normal ENT Inspection, Pharynx Normal Neck: Full Range of Motion, Normal Inspection, Non Tender, Supple, Carotid Bruit Respiratory: Chest Non Tender, No Accessory Muscle Use, No Respiratory Distress , Crackles, Decreased Breath Sounds, Wheezing Cardiovascular: Regular Rate, Rhythm, No Edema, No Gallop, No JVD, No Murmur, Normal Peripheral Pulses Gastrointestinal: Normal Bowel Sounds, No Organomegaly, No Pulsatile Mass, Non Tender, Soft Back: Normal Inspection, No CVA Tenderness, No Vertebral Tenderness Extremity: Normal Capillary Refill, Normal Inspection, Normal Range of Motion, Non Tender, No Calf Tenderness, No Pedal Edema Neurologic/Psychiatric: Alert, Oriented x3, No Motor/Sensory Deficits, Depressed Affect Skin: Normal Color, Warm/Dry Lymphatic: No Adenopathy Results Results/Procedures Labs Laboratory Tests 10/31/17 22:15 11/01/17 04:35 11/01/17 04:55 Patient resulted labs reviewed. Assessment/Plan Admission Diagnosis Assessment: Acute congestive heart failure with volume overload Severe chronic respiratory insufficiency Plan: Appreciate cardiology and pulmonology consultations Reconcile all home meds Monitor labs Maintain Tsang catheter due to desaturation with any activity Maintain ICU status today Admission Status: Inpatient Order (span 2 midnights) Reason for Inpatient Admission: Severe debility from new onset congestive heart failure and chronic and acute respiratory failure will require 3 days of hospital stay Diagnosis/Problems Diagnosis/Problems (1) CHF (congestive heart failure) Status: Acute Assessment & Plan: Appreciate cardiology consultation Qualifiers: Heart failure type: combined systolic and diastolic Heart failure chronicity: acute Qualified Codes: I50.41 - Acute combined systolic ( congestive) and diastolic (congestive) heart failure (2) CAD (coronary artery disease) Status: Chronic Assessment & Plan: Appreciate cardiology consultation Qualifiers: Coronary Disease-Associated Artery/Lesion type: [place] artery [place] vs. transplanted heart: [place] heart Associated angina: without angina Qualified Codes: I25.10 - Atherosclerotic heart disease of [place] coronary artery without angina pectoris (3) Hypoxia Status: Acute Assessment & Plan: Appreciate pulmonology consultation (4) Debilitated Status: Chronic (5) Myocardial infarct, old Status: Chronic Assessment & Plan: Appreciate cardiology consultation (6) Chronic eosinophilic pneumonia Status: Chronic Assessment & Plan: Appreciate pulmonology consultation Clinical Quality Measures DVT/VTE Risk/Contraindication: Risk Factor Score Per Nursin RFS Level Per Nursing on Admit: 2=Moderate RUTH CARMONA DO Nov 01, 2017 11:56
--- NOTE | 2017-11-01 11:58 | Consultation-Cardiology ---
HPI-Cardiology Cardiology Consultation: Date of Consultation 11/01/17 Time Seen by Provider: 12:15 Date of Admission Attending Physician Ruth Lindo DO Admitting Physician Benny Boyd DO Consulting Physician LIZY PINON MD, MA, FACP, FACC, FSCAI, CCDS HPI: Chief Complaint: Shortness of breath 72 yo woman who suffers from multiple comorbidities and has been hosp with increasing shortness of breath over the course of the last 2-3 days. This began after prednisone (that she is on for ILD) was reduced from 10 mg daily to 5 mg daily She denies cp or palp or syncope or ankle swelling Review of Systems-Cardiology Review of Systems Constitutional: malaise, tiredness; No weight loss, No weight gain Eyes: No vision change Ears/Nose/Throat: No ear discharge, No nasal drainage, No recent hearing loss Respiratory: As described under HPI Cardiovascular: As described under HPI Gastrointestinal: No constipation, No diarrhea, No nausea, No vomiting Genitourinary: No dysuria, No hematuria Musculoskeletal: No back pain, No joint pain Skin: No rash, No ulcerations Psychiatric/Neurological: No seizure, No focal weakness, No syncope Hematologic: bleeding abnormalities OVO-Fpmruq-Dxztio Hx Patient Social History Alcohol Use: Denies Use Recreational Drug Use: No Smoking Status: Never a Smoker 2nd Hand Smoke Exposure: No Recent Foreign Travel: No Recent Infectious Disease Expo: No Hospitalization with Isolation: Denies Physical Abuse Screen: No Sexual Abuse: No Immunizations Up To Date Date of Pneumonia Vaccine: Apr 06, 2016 Date of Influenza Vaccine: Apr 06, 2017 Past Medical History PMH As described under Assessment. Family Medical History Family Medical History: No fam h/o early CAD or SCD. Father and brother had PA in their later age Allergies and Home Medications Allergies Coded Allergies: No Known Drug Allergies (Unverified , 08/03/17) Home Medications Aspirin 81 Mg Tab.chew, 81 MG PO DAILY Prescribed by: ABHISHEK BANDA on 08/29/17 08 Atorvastatin Calcium 80 Mg Tablet, 80 MG PO HS Prescribed by: ABHISHEK BANDA on 08/29/17 08 Calcium Citrate/Vitamin D3 1 Each Tablet, 1 TAB PO HS, (Reported) Clopidogrel Bisulfate 75 Mg Tablet, 75 MG PO DAILY Prescribed by: ABHISHEK BANDA on 08/29/17 08 Fluticasone/Salmeterol 12 Gm Hfa.aer.ad, 2 PUFF IH BID@ Prescribed by: MARIANA QUEVEDO on 08/29/17930 Levothyroxine Sodium 75 Mcg Tablet, 75 MCG PO DAILY@629 Prescribed by: MARIANA QUEVEDO on 08/29/17 1007 Prednisone 10 Mg Tab, 60 MG PO DAILY Taper Dosage 60 mg Day 1 50 mg Day 2 50 mg Day 3 40 mg Day 4 40 mg Day 5 30 mg Day 6 30 mg Day 7 20 mg Day 8 20 mg Day 9 10 mg Day 10 Prescribed by: MARIANA QUEVEDO on 08/29/17930 Venlafaxine HCl 37.5 Mg Tab, 37.5 MG PO DAILY, (Reported) [Philip W/ C] , 1 TAB PO 1800, (Reported) Patient Home Medication List Home Medication List Reviewed: Yes Physical Exam-Cardiology Physical Exam Vital Signs/I&O 11/01/17 11/01/17 11/01/17 11/01/17 01:39 01:55 02:00 03:00 Pulse 84 81 Resp 28 22 B/P (MAP) 118/66 (83) 117/74 (88) Pulse Ox 98 98 O2 Delivery OxyMask OxyMask OxyMask OxyMask O2 Flow Rate 4.00 4.00 4.00 4.00 11/01/17 11/01/17 11/01/17 11/01/17 03:20 03:32 04:00 05:00 Temp 97.9 Pulse 109 77 75 Resp 23 23 B/P (MAP) 117/74 (88) 105/74 (84) Pulse Ox 95 95 97 94 O2 Delivery Nasal Cannula Nasal Cannula Nasal Cannula O2 Flow Rate 4.00 4.00 2.00 11/01/17 11/01/17 11/01/17 11/01/17 06:00 07:00 08:00 08:59 Pulse 69 82 Resp 23 B/P (MAP) 102/61 (75) Pulse Ox 95 95 O2 Delivery Nasal Cannula Nasal Cannula Room Air O2 Flow Rate 2.00 2.00 11/01/17 11:41 Pulse Ox 95 O2 Delivery Nasal Cannula O2 Flow Rate 2.00 Capillary Refill : Less Than 3 Seconds Constitutional: AAO x 3, well-developed, other HEENT: EOMI, hearing is well preserved; No xanthelasmas are seen Neck: non-tender, carotid pulses are 2 + bilaterally, with good upstrokes Respiratory: No accessory muscle use; other (Fair bilat air entry, coarse basal crackles, resonance to percussion) Cardiovascular: regular rate-rhythm, S1 and S2, systolic murmur (soft CEDRICK at card base) Gastrointestinal: No tender; soft; No guarding, No rebound; audible bowel sounds Extremities: No clubbing, No cyanosis, No significant edema Neurologic/Psychiatric: oriented x 3, grossly intact, power is 5/5 both on sides Skin: No rash on exposed areas, No ulcerations on exposed areas Data Review Labs Laboratory Tests 10/31/17 22:15: White Blood Count 8.0, Red Blood Count 3.91L, Hemoglobin 12.5, Hematocrit 36, Mean Corpuscular Volume 92, Mean Corpuscular Hemoglobin 32, Mean Corpuscular Hemoglobin Concent 35, Red Cell Distribution Width 13.3, Platelet Count 195, Mean Platelet Volume 10.1, Neutrophils (%) (Auto) 76H, Lymphocytes (%) (Auto) 14 , Monocytes (%) (Auto) 10, Eosinophils (%) (Auto) 0, Basophils (%) (Auto) 0, Neutrophils # (Auto) 6.1, Lymphocytes # (Auto) 1.1, Monocytes # (Auto) 0.8, Eosinophils # (Auto) 0.0, Basophils # (Auto) 0.0, Prothrombin Time 15.4H, INR Comment 1.2, Activated Partial Thromboplast Time 28, Sodium Level 137, Potassium Level 4.6, Chloride Level 102, Carbon Dioxide Level 26, Anion Gap 9, Blood Urea Nitrogen 14, Creatinine 0.69, Estimat Glomerular Filtration Rate > 60 , BUN/Creatinine Ratio 20, Glucose Level 139H, Calcium Level 9.0, Magnesium Level 2.1, Total Bilirubin 0.5, Aspartate Amino Transf (AST/SGOT) 28, Alanine Aminotransferase (ALT/SGPT) 30, Alkaline Phosphatase 60, Total Creatine Kinase 47, Creatine Kinase MB 1.5, Troponin I < 0.30, B-Type Natriuretic Peptide 277.0H , Total Protein 6.7, Albumin 3.5, Amylase Level 40, Lipase 20 10/31/17 22:25: Blood Gas Puncture Site LEFT RADIAL, Blood Gas Patient Temperature 98.7, Arterial Blood pH 7.46H, Arterial Blood Partial Pressure CO2 41, Arterial Blood Partial Pressure O2 192H, Arterial Blood HCO3 29H, Arterial Blood Total CO2 29.9 , Arterial Blood Oxygen Saturation 100, Arterial Blood Base Excess 4.8H, Corye Test POSITIVE, Blood Gas Ventilator Setting NO, Blood Gas Inspired Oxygen 10L 11/01/17 04:35: Sodium Level 137, Potassium Level 3.7, Chloride Level 97L, Carbon Dioxide Level 25, Anion Gap 15H, Blood Urea Nitrogen 17, Creatinine 0.73, Estimat Glomerular Filtration Rate > 60, BUN/Creatinine Ratio 23, Glucose Level 215H, Calcium Level 9.2, Total Bilirubin 0.6, Aspartate Amino Transf (AST/SGOT) 29, Alanine Aminotransferase (ALT/SGPT) 34, Alkaline Phosphatase 65, Troponin I < 0.30, Total Protein 7.4, Albumin 3.8 11/01/17 04:55: White Blood Count 8.2, Red Blood Count 4.42, Hemoglobin 13.3, Hematocrit 40, Mean Corpuscular Volume 91, Mean Corpuscular Hemoglobin 30, Mean Corpuscular Hemoglobin Concent 33, Red Cell Distribution Width 13.5, Platelet Count 209, Mean Platelet Volume 10.5H, Neutrophils (%) (Auto) 93H, Lymphocytes (%) (Auto) 6L, Monocytes (%) (Auto) 1, Eosinophils (%) (Auto) 0, Basophils (%) (Auto) 0, Neutrophils # (Auto) 7.6, Lymphocytes # (Auto) 0.5L, Monocytes # (Auto) 0.1, Eosinophils # (Auto) 0.0, Basophils # (Auto) 0.0, Magnesium Level 1.9, Neutrophils % (Manual) 97, Lymphocytes % (Manual) 2, Monocytes % (Manual) 1, Eosinophils % (Manual) 0, Basophils % (Manual) 0, Band Neutrophils 0, Poikilocytosis SLIGHT, Elliptocytes SLIGHT, Phosphorus Level 3.8 A/P-Cardiology Assessment/Admission Diagnosis Ac on chronic resp failure, multifactorial (see below) Ac on chronic diastolic CHF Interstitial lung disease. Bibasilar pulmonary infiltrates during hosp of July and August 2017: CHF vs atelectasis vs pneumonia; unchanged on CT of 08/25/17. 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 Last CT chest of 10/09/17 showed some improvement of groundgass infiltrates and no new abnromality Coronary artery disease, status post cardiac catheterization done by Dr. Pinon on 08/04/17 (for ac IMI and RV infarct): Mid vessel occlusion of the right coronary artery treated with overlapping stents (Alpine Xience 2.75 x 28 mm the distal part of which extends slightly into the right ventricular branch) and Alpine Xience 2.75 x 12 mm stent that was placed through the expanded struts of the previous stent and overlaps the previous stent to some degree. There is no significant residual stenosis in the right coronary artery and the flow was normal, but right ventricular branch was lost during the procedure due to infarct-related thrombus. A 90% to 95% stenosis of the proximal left circumflex artery, which was treated with stenting with Alpine Xience 2.25 x 12 mm stent with reduction of stenosis to 0% residual. The left anterior descending artery has diffuse iizt-ly-vhsltodk disease Relative hypotension, improved after d/c bb and BRETT-inhibitor Echo of 11/01/17: LVEF 50-55%, grade I rouse dysfunction, no significant pericard eff or valvular heart disease, PASP 25-30 mmHg Well preserved global left ventricular systolic function with ejection fraction 60%, postero-basal hypokinesis, no significant mitral regurgitation and mild elevation of left ventricular end-diastolic pressure on LHC of 08/04/17 TSH 0.26 on lab of 08-05-17 - suggestive of hyperthyroidism Elevated ESR, followed and treated by [facility] Discussion and Recomendations * Complex management due to multiple comorbidities * Treat CHF with diuretics and ILD with steroids * Monitor labs * Keep in ICU until clinical stabilization * Continue dual antiplatelet therapy Clinical Quality Measures DVT/VTE Risk/Contraindication: Risk Factor Score Per Nursin RFS Level Per Nursing on Admit: 2=Moderate LIZY PINON MD FACP FAC CCDS Nov 01, 2017 11:58
[2017-11-01] MEDS: methylPREDNISolone 40 MG/ML (Solu-MEDROL) VIAL IV SCH ×3 (13:15→23:44)
[2017-11-01] MEDS ORDERED: CLOPIDOGREL 75 MG (PLAVIX) TABLET PO NR (13:45)
[2017-11-01] MEDS: BENZONATATE 100 MG (TESSALON) CAPSULE PO SCH ×2 (14:22→20:33)
[2017-11-01] MEDS: LORATADINE (CLARITIN) 10 MG TAB PO SCH (14:22)
[2017-11-01] MEDS: RT-ADVAIR HFA 115/21 MCG PER PUFF IH SCH (20:14)
[2017-11-01] MEDS: ATORVASTATIN 80 MG (LIPITOR) TABLET PO SCH (20:33)
[2017-11-02] VITALS (24 sets, daily range): BP systolic 93–134; BP diastolic 54–80
[2017-11-02] MEDS: RT-ALBUTEROL/IPRATROPIUM 3 ML (DUONEB) VIAL INH SCH ×3 (02:36→21:09)
[2017-11-02 03:48] LABS: BASOPHILS % (AUTO) 0 % (0-10); EOSINOPHILS % (AUTO) 0 % (0-10); HEMATOCRIT 37 % (35-52); HEMOGLOBIN 12.9 G/DL (11.5-16.0); LYMPHOCYTES # (AUTO) 0.5 X 10^3 (1.0-4.0); LYMPHOCYTES % (AUTO) 6 % (12-44); MEAN CORPUSCULAR HEMOGLOBIN 32 PG (25-34); MEAN CORPUSCULAR HGB CONC 35 G/DL (32-36); MEAN CORPUSCULAR VOLUME 90 FL (80-99); MEAN PLATELET VOLUME 10.6 FL (7.4-10.4); MONOCYTES # (AUTO) 0.4 X 10^3 (0.0-1.0); MONOCYTES % (AUTO) 4 % (0-12); NEUTROPHILS # (AUTO) 8.3 X 10^3 (1.8-7.8); NEUTROPHILS % (AUTO) 90 % (42-75); PLATELET COUNT 202 10^3/uL (130-400); RED BLOOD COUNT 4.09 10^6/uL (4.35-5.85); RED CELL DISTRIBUTION WIDTH 13.1 % (10.0-14.5); WHITE BLOOD COUNT 9.3 10^3/uL (4.3-11.0)
[2017-11-02 04:10] LABS: BUN/CREATININE RATIO 26; CALCIUM 9.4 MG/DL (8.5-10.1); CARBON DIOXIDE 24 MMOL/L (21-32); CHLORIDE 92 MMOL/L (98-107); GFR ESTIMATED > 60; GLUCOSE 208 MG/DL (70-105); MAGNESIUM 1.9 MG/DL (1.8-2.4); PHOSPHORUS 3.4 MG/DL (2.3-4.7); POTASSIUM 3.7 MMOL/L (3.6-5.0); SODIUM 130 MMOL/L (135-145)
[2017-11-02] MEDS: KCL 20 MEQ TAB (K-DUR) PO SCH (04:32)
[2017-11-02] MEDS: POTASSIUM CL 10MEQ/50ML IVPB 50 ML IV SCH (04:32)
[2017-11-02] MEDS: MAGNESIUM 1 GM/100 ML IVPB 100 ML IV SCH (04:32)
[2017-11-02] MEDS: methylPREDNISolone 40 MG/ML (Solu-MEDROL) VIAL IV SCH ×3 (06:16→17:31)
[2017-11-02] MEDS: LEVOTHYROXINE 75 MCG (LEVOTHROID) TABLET PO SCH (06:16)
--- NOTE | 2017-11-02 06:38 | Pulmonary Progress Note ---
Subjective Time Seen by Provider: 06:35 Subjective/Events-last exam PT appears to be doing slightly better. Exam Exam Vital Signs Date Time Temp Pulse Resp B/P (MAP) Pulse Ox O2 Delivery O2 Flow Rate FiO2 11/02/17 06:00 84 17 124/63 (83) 97 Nasal Cannula 3.00 11/02/17 05:00 75 12 118/62 (80) 98 Nasal Cannula 3.00 11/02/17 04:00 85 23 98/60 (73) 96 Nasal Cannula 3.00 11/02/17 03:25 94 Nasal Cannula 3.00 11/02/17 03:25 98.3 11/02/17 03:00 77 22 108/61 (77) 92 Nasal Cannula 3.00 11/02/17 02:38 Nasal Cannula 3.00 11/02/17 02:00 76 20 93/54 (67) 92 Nasal Cannula 3.00 11/02/17 01:00 82 18 119/67 (84) 97 Nasal Cannula 3.00 11/02/17 01:00 82 11/02/17 00:00 81 19 104/59 (74) 97 Nasal Cannula 3.00 11/01/17 23:45 95 Nasal Cannula 3.00 11/01/17 23:45 98.1 95 Nasal Cannula 3.00 11/01/17 23:00 81 20 101/59 (73) 97 Nasal Cannula 3.00 11/01/17 22:00 87 32 97/64 (75) 95 Nasal Cannula 3.00 11/01/17 21:00 89 29 106/61 (76) 96 Nasal Cannula 3.00 11/01/17 20:27 93 Nasal Cannula 3.00 11/01/17 20:26 95 Nasal Cannula 3.00 11/01/17 20:00 92 26 99/68 (78) 92 Nasal Cannula 3.00 11/01/17 19:55 95 Nasal Cannula 3.00 11/01/17 19:00 110 11/01/17 19:00 97.2 89 14 113/70 (84) 95 Nasal Cannula 3.00 11/01/17 18:00 93 29 117/73 (88) 94 Nasal Cannula 3.00 11/01/17 17:05 89 33 93 Nasal Cannula 3.00 11/01/17 17:00 103 27 118/74 (89) 95 Nasal Cannula 2.00 11/01/17 16:00 96 22 117/67 (84) 94 Nasal Cannula 2.00 11/01/17 15:18 95 Nasal Cannula 2.00 11/01/17 15:00 96 28 115/63 (80) 96 Nasal Cannula 2.00 11/01/17 14:42 95 Nasal Cannula 2.00 11/01/17 14:00 89 30 110/77 (88) 96 Nasal Cannula 2.00 11/01/17 13:00 89 26 106/72 (83) 94 Nasal Cannula 2.00 11/01/17 13:00 92 11/01/17 12:00 94 25 96/75 (82) 92 Nasal Cannula 2.00 11/01/17 11:41 95 Nasal Cannula 2.00 11/01/17 11:00 97 25 109/75 (86) 98 Nasal Cannula 2.00 11/01/17 10:00 96 41 119/66 (83) 98 Nasal Cannula 2.00 11/01/17 09:00 84 20 93/54 (67) 92 Nasal Cannula 2.00 11/01/17 08:59 Room Air 11/01/17 08:00 84 20 93/54 (67) 92 Nasal Cannula 2.00 11/01/17 08:00 95 Nasal Cannula 2.00 11/01/17 07:00 82 11/01/17 07:00 75 21 111/61 (78) 96 Nasal Cannula 2.00 I & O 11/02/17 07:00 Intake Total 1675 ml Output Total 1550 ml Balance 125 ml General Appearance: WD/WN, Chronically ill, Mild Distress HEENT: PERRL/EOMI, Normal ENT Inspection, Pharynx Normal Neck: Full Range of Motion, Normal Inspection, Non Tender, Supple, Carotid Bruit Respiratory: Chest Non Tender, No Accessory Muscle Use, No Respiratory Distress , Crackles, Decreased Breath Sounds, Wheezing Cardiovascular: Regular Rate, Rhythm, No Edema, No Gallop, No JVD, No Murmur, Normal Peripheral Pulses Capillary Refill: Less Than 3 Seconds Gastrointestinal: normal bowel sounds, non tender, soft Extremity: Normal Capillary Refill, Normal Inspection, Normal Range of Motion, Non Tender, No Calf Tenderness, No Pedal Edema Neurologic/Psychiatric: Alert, Oriented x3, No Motor/Sensory Deficits, Depressed Affect Skin: Normal Color, Warm/Dry Lymphatic: No Adenopathy Results Lab Laboratory Tests 10/31/17 22:15 11/01/17 04:35 11/01/17 04:55 11/02/17 03:20 Assessment/Plan Assessment/Plan Acute on chronic respiratory failure -Pt had increased oxygen requirements last night. -Improved with high dose lasix -SVNs ILD --Solumedrol decrease to 40 IV Q 6 CHFAE - hx of diastolic CHF EF 60% -continue lasix CAD with recent [place] debility/weakness -PT/OT at bedside all questions answered. Labs and radiology reviewed. I am going to give her another 80mg of Lasix IV today and then repeat CT scan tomorrow morning. 233 Critical Care: Critically Ill Patient JUANA WILLS DO Nov 02, 2017 06:38
[2017-11-02] MEDS: RT-ADVAIR HFA 115/21 MCG PER PUFF IH SCH ×2 (09:00→21:10)
[2017-11-02] MEDS ORDERED: FUROSEMIDE 40 MG/4 ML INJ (LASIX) IVP SCH ×2 (09:00)
[2017-11-02 09:03] LABS: ABG BASE EXCESS 5.8 MMOL/L (-2.5-2.5); ABG OXYGEN SATURATION 99 % (94-100); ABG PCO2 37 MMHG (35-45); ABG PO2 97 MMHG (79-93); ABG TCO2 30.5 MMOL/L (21.0-31.0)
[2017-11-02 09:04] LABS: ALLENS TEST YES-POS
[2017-11-02 09:05] LABS: INSPIRED O2 10L AND 45%; PATIENT TEMP 96.9; VENTILATOR NO
[2017-11-02] MEDS: ASPIRIN 81 MG CHEW (CHILDREN'S ASA) PO SCH (09:05)
[2017-11-02] MEDS: LORATADINE (CLARITIN) 10 MG TAB PO SCH (09:05)
[2017-11-02] MEDS: PANTOPRAZOLE 40 MG/10 ML (PROTONIX) VIAL IV SCH (09:05)
[2017-11-02] MEDS: ENOXAPARIN 40 MG/0.4 ML (LOVENOX) SYR SC SCH (09:05)
[2017-11-02] MEDS: BENZONATATE 100 MG (TESSALON) CAPSULE PO SCH ×3 (09:05→21:04)
[2017-11-02] MEDS: VENlafaxine 37.5 MG (EFFEXOR) TAB PO SCH (09:05)
[2017-11-02] MEDS: CLOPIDOGREL 75 MG (PLAVIX) TABLET PO SCH (09:05)
--- NOTE | 2017-11-02 10:19 | Diagnostic Imaging Report ---
INDICATION: Hypoxia. COMPARISON is made with prior examination from 11/01/2017 FINDINGS: There is cardiomegaly. There is venous congestion. There is diffuse bilateral airspace disease. There is no pleural effusion or pneumothorax. The mediastinum is unremarkable. IMPRESSION: Unchanged diffuse bilateral airspace disease with some underlying central pulmonary venous congestion. Dictated by: Dictated on workstation # [id number]
--- NOTE | 2017-11-02 11:02 | Progress Note-Hospitalist ---
Subjective HPI/CC On Admission Date Seen by Provider: Nov 02, 2017 Time Seen by Provider: 10:15 CC: Dyspnea HPI: This is a 72-year-old white female known to me from lengthy hospital stay 3 months ago following a myocardial infarction status post stents deployed with subsequent lengthy hospital course for recovery that included pneumonia and respiratory insufficiency. 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 To note she did have a good recovery following inpatient rehabilitation and she was doing well at home doing laundry and housework so she had a near full recovery following the long hospital stay but last night she started feeling so badly she resented to the ER. Currently patient is maintaining good oxygen status although she does wear 2 L at home 16/12 but with any activity or exertion she does desaturate. Considering the severe desaturation with any activity she will maintain Tsang catheter today and maintain ICU status. I reviewed records from specialists and prior hospital stay. Subjective/Events-last exam Patient having more and more dyspnea requiring Vapotherm Needs some gentle medication for bowels Maintain Tsang catheter due to severe dyspnea on exertion and friend are at the bedside Denies any pain Review of Systems Pulmonary: Dyspnea Gastrointestinal: Constipation Objective Exam Vital Signs Vital Signs Date Time Temp Pulse Resp B/P (MAP) Pulse Ox O2 Delivery O2 Flow Rate FiO2 11/02/17 16:00 98.4 91 30 125/73 (90) 98 Vapotherm 40.00 10.00 11/02/17 12:00 40 Capillary Refill : Less Than 3 Seconds General Appearance: WD/WN, Chronically ill, Mild Distress Respiratory: Crackles, Respiratory Distress (mild), Wheezing Cardiovascular: Regular Rate, Rhythm, No Edema Neurologic/Psychiatric: Alert, Oriented x3, No Motor/Sensory Deficits, Normal Mood/Affect Results/Procedures Lab Laboratory Tests 11/02/17 03:20 Patient resulted labs reviewed. Assessment/Plan Assessment and Plan Assess & Plan/Chief Complaint Assessment: Acute respiratory failure now requiring Vapotherm Volume overload CAD previous stent placement Chronic debility Plan: IV Lasix Vapotherm Appreciate cardiology and pulmonology consultations Critical Care Critical Care: Critically Ill Patient Diagnosis/Problems Diagnosis/Problems (1) Respiratory insufficiency Status: Acute Assessment & Plan: Vapotherm, Nebs, monitor for intubation necessity (2) CHF (congestive heart failure) Status: Acute Assessment & Plan: Appreciate cardiology consultation Qualifiers: Heart failure type: combined systolic and diastolic Heart failure chronicity: acute Qualified Codes: I50.41 - Acute combined systolic ( congestive) and diastolic (congestive) heart failure (3) CAD (coronary artery disease) Status: Chronic Assessment & Plan: Appreciate cardiology consultation Qualifiers: Coronary Disease-Associated Artery/Lesion type: [place] artery [place] vs. transplanted heart: [place] heart Associated angina: without angina Qualified Codes: I25.10 - Atherosclerotic heart disease of [place] coronary artery without angina pectoris (4) Hypoxia Status: Acute Assessment & Plan: Appreciate pulmonology consultation (5) Debilitated Status: Chronic (6) Myocardial infarct, old Status: Chronic Assessment & Plan: Appreciate cardiology consultation (7) Chronic eosinophilic pneumonia Status: Chronic Assessment & Plan: Appreciate pulmonology consultation Clinical Quality Measures DVT/VTE Risk/Contraindication: Risk Factor Score Per Nursin RFS Level Per Nursing on Admit: 2=Moderate ZHANNA CARMONA DO Nov 02, 2017 11:02
[2017-11-02] MEDS: DOCUSATE SODIUM 100 MG (COLACE) CAP PO SCH ×2 (12:40→21:04)
[2017-11-02] MEDS: LACTULOSE SYRUP 10GM/15ML (ENULOSE) 30ML UDC PO SCH ×2 (12:40→21:04)
--- NOTE | 2017-11-02 14:26 | Progress Note-Cardiology ---
Cardiology SOAP Progress Note Subjective: More short of breath today No cp or palp or syncope or leg swelling Objective: I&O/Vital Signs 11/02/17 11/02/17 11/02/17 11/02/17 02:38 03:00 03:25 03:25 Temp 98.3 Pulse 77 Resp 22 B/P (MAP) 108/61 (77) Pulse Ox 92 94 O2 Delivery Nasal Cannula Nasal Cannula Nasal Cannula O2 Flow Rate 3.00 3.00 3.00 11/02/17 11/02/17 11/02/17 11/02/17 04:00 05:00 06:00 07:00 Pulse 85 75 84 90 Resp 23 12 17 B/P (MAP) 98/60 (73) 118/62 (80) 124/63 (83) Pulse Ox 96 98 97 O2 Delivery Nasal Cannula Nasal Cannula Nasal Cannula O2 Flow Rate 3.00 3.00 3.00 11/02/17 11/02/17 11/02/17 11/02/17 07:00 07:29 07:47 08:00 Temp 97.8 Pulse 90 105 Resp 30 29 B/P (MAP) 113/69 (84) 134/72 (92) Pulse Ox 96 94 91 O2 Delivery Nasal Cannula Nasal Cannula Vapotherm Vapotherm O2 Flow Rate 3.00 5.00 10.00 45.00 10.00 FiO2 45 11/02/17 11/02/17 11/02/17 11/02/17 08:00 09:00 09:00 10:00 Pulse 93 96 Resp 23 12 B/P (MAP) 111/64 (80) 103/80 (88) Pulse Ox 94 95 95 96 O2 Delivery Nasal Cannula Vapotherm Vapotherm Vapotherm O2 Flow Rate 5.00 10.00 45.00 40.00 10.00 10.00 FiO2 45 11/02/17 11/02/17 11/02/17 11/02/17 11:00 12:00 12:00 12:55 Pulse 105 92 96 Resp 13 10 B/P (MAP) 113/65 (81) 112/75 (87) Pulse Ox 96 95 96 O2 Delivery Vapotherm Vapotherm Vapotherm O2 Flow Rate 40.00 40.00 10.00 10.00 10.00 FiO2 40 11/02/17 11/02/17 13:00 14:00 Pulse 96 103 Resp 22 11 B/P (MAP) 104/70 (81) 116/72 (87) Pulse Ox 96 96 O2 Delivery Vapotherm Vapotherm O2 Flow Rate 40.00 40.00 10.00 10.00 11/02/17 00:00 Intake Total 1000 ml Output Total 575 ml Balance 425 ml Weight (Pounds): 122 Weight (Ounces): 3.0 Weight (Calculated Kilograms): [id number] Constitutional: AAO x 3, well-developed, other Respiratory: No accessory muscle use; other (Fair bilat air entry, coarse basal crackles, resonance to percussion) Cardiovascular: regular rate-rhythm, S1 and S2, systolic murmur (soft CEDRICK at card base) Gastrointestional: No tender; soft; No guarding, No rebound; audible bowel sounds Extremities: No clubbing, No cyanosis, No significant edema Neurologic/Psychiatric: oriented x 3, grossly intact, power is 5/5 both on sides Skin: No rash on exposed areas, No ulcerations on exposed areas Results/Procedures: Labs Laboratory Tests 11/02/17 03:20: White Blood Count 9.3, Red Blood Count 4.09L, Hemoglobin 12.9, Hematocrit 37, Mean Corpuscular Volume 90, Mean Corpuscular Hemoglobin 32, Mean Corpuscular Hemoglobin Concent 35, Red Cell Distribution Width 13.1, Platelet Count 202, Mean Platelet Volume 10.6H, Neutrophils (%) (Auto) 90H, Lymphocytes (%) (Auto) 6L, Monocytes (%) (Auto) 4, Eosinophils (%) (Auto) 0, Basophils (%) (Auto) 0, Neutrophils # (Auto) 8.3H, Lymphocytes # (Auto) 0.5L, Monocytes # (Auto) 0.4, Eosinophils # (Auto) 0.0, Basophils # (Auto) 0.0, Sodium Level 130L, Potassium Level 3.7, Chloride Level 92L, Carbon Dioxide Level 24, Anion Gap 14, Blood Urea Nitrogen 18, Creatinine 0.70, Estimat Glomerular Filtration Rate > 60, BUN/ Creatinine Ratio 26, Glucose Level 208H, Calcium Level 9.4, Phosphorus Level 3.4 , Magnesium Level 1.9 11/02/17 08:58: Blood Gas Puncture Site LT RAD, Blood Gas Patient Temperature 96.9, Arterial Blood pH 7.50H, Arterial Blood Partial Pressure CO2 37, Arterial Blood Partial Pressure O2 97H, Arterial Blood HCO3 29H, Arterial Blood Total CO2 30.5, Arterial Blood Oxygen Saturation 99, Arterial Blood Base Excess 5.8H, Corey Test YES-POS, Blood Gas Ventilator Setting NO, Blood Gas Inspired Oxygen 10L AND 45% Microbiology 11/01/17 MRSA Screen - Final, Complete Laboratory Tests 10/31/17 22:15 11/01/17 04:35 11/01/17 04:55 11/02/17 03:20 A/P: Assessment: Ac on chronic resp failure, multifactorial (see below) Ac on chronic diastolic CHF Interstitial lung disease. Bibasilar pulmonary infiltrates during hosp of July and August 2017: CHF vs atelectasis vs pneumonia; unchanged on CT of 08/25/17. 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 Last CT chest of 10/09/17 showed some improvement of groundgass infiltrates and no new abnromality Hyponatremia, likely related to diuretic therapy Coronary artery disease, status post cardiac catheterization done by Dr. Pinon on 08/04/17 (for ac IMI and RV infarct): Mid vessel occlusion of the right coronary artery treated with overlapping stents (Alpine Xience 2.75 x 28 mm the distal part of which extends slightly into the right ventricular branch) and Alpine Xience 2.75 x 12 mm stent that was placed through the expanded struts of the previous stent and overlaps the previous stent to some degree. There is no significant residual stenosis in the right coronary artery and the flow was normal, but right ventricular branch was lost during the procedure due to infarct-related thrombus. A 90% to 95% stenosis of the proximal left circumflex artery, which was treated with stenting with Alpine Xience 2.25 x 12 mm stent with reduction of stenosis to 0% residual. The left anterior descending artery has diffuse zccy-de-lhtbwayl disease Relative hypotension, improved after d/c bb and BRETT-inhibitor Echo of 11/01/17: LVEF 50-55%, grade I rouse dysfunction, no significant pericard eff or valvular heart disease, PASP 25-30 mmHg Well preserved global left ventricular systolic function with ejection fraction 60%, postero-basal hypokinesis, no significant mitral regurgitation and mild elevation of left ventricular end-diastolic pressure on LHC of 08/04/17 TSH 0.26 on lab of 08-05-17 - suggestive of hyperthyroidism Elevated ESR, followed and treated by [facility] Plan: * Complex management due to multiple comorbidities * Treat CHF with diuretics and ILD with steroids * Monitor labs * Keep in ICU until clinical stabilization * Continue dual antiplatelet therapy * I had a long discussion with her and her fam regarding her CV issues and our treatment plan * Not a suitable candidate for bb due to h/o hypotension on such agents LIZY PINON MD FACP FAC CCDS Nov 02, 2017 14:26
[2017-11-02] MEDS: ATORVASTATIN 80 MG (LIPITOR) TABLET PO SCH (21:04)
[2017-11-03] VITALS (23 sets, daily range): BP systolic 108–142; BP diastolic 62–87
[2017-11-03] MEDS: methylPREDNISolone 40 MG/ML (Solu-MEDROL) VIAL IV SCH ×4 (01:11→17:50)
[2017-11-03 03:16] LABS: BASOPHILS % (AUTO) 0 % (0-10); EOSINOPHILS % (AUTO) 0 % (0-10); HEMATOCRIT 35 % (35-52); HEMOGLOBIN 12.1 G/DL (11.5-16.0); LYMPHOCYTES # (AUTO) 0.5 X 10^3 (1.0-4.0); LYMPHOCYTES % (AUTO) 6 % (12-44); MEAN CORPUSCULAR HEMOGLOBIN 31 PG (25-34); MEAN CORPUSCULAR HGB CONC 35 G/DL (32-36); MEAN CORPUSCULAR VOLUME 89 FL (80-99); MEAN PLATELET VOLUME 10.2 FL (7.4-10.4); MONOCYTES # (AUTO) 0.7 X 10^3 (0.0-1.0); MONOCYTES % (AUTO) 7 % (0-12); NEUTROPHILS # (AUTO) 7.6 X 10^3 (1.8-7.8); NEUTROPHILS % (AUTO) 87 % (42-75); PLATELET COUNT 212 10^3/uL (130-400); RED BLOOD COUNT 3.93 10^6/uL (4.35-5.85); RED CELL DISTRIBUTION WIDTH 13.1 % (10.0-14.5); WHITE BLOOD COUNT 8.8 10^3/uL (4.3-11.0)
[2017-11-03] MEDS: RT-ALBUTEROL/IPRATROPIUM 3 ML (DUONEB) VIAL INH SCH ×4 (03:23→21:22)
[2017-11-03 03:54] LABS: BUN/CREATININE RATIO 28; CALCIUM 8.7 MG/DL (8.5-10.1); CARBON DIOXIDE 27 MMOL/L (21-32); CHLORIDE 90 MMOL/L (98-107); CREATININE SERUM 0.65 MG/DL (0.60-1.30); GFR ESTIMATED > 60; GLUCOSE 222 MG/DL (70-105); MAGNESIUM 2.1 MG/DL (1.8-2.4); PHOSPHORUS 3.1 MG/DL (2.3-4.7); POTASSIUM 3.7 MMOL/L (3.6-5.0); SODIUM 129 MMOL/L (135-145)
[2017-11-03] MEDS: MAGNESIUM 1 GM/100 ML IVPB 100 ML IV SCH (05:08)
[2017-11-03] MEDS: KCL 20 MEQ TAB (K-DUR) PO SCH (05:08)
[2017-11-03] MEDS: POTASSIUM CL 10MEQ/50ML IVPB 50 ML IV SCH (05:08)
--- NOTE | 2017-11-03 05:59 | Pulmonary Progress Note ---
Subjective Time Seen by Provider: 06:07 Subjective/Events-last exam Pt still requiring vapotherm. Exam Exam Vital Signs Date Time Temp Pulse Resp B/P (MAP) Pulse Ox O2 Delivery O2 Flow Rate FiO2 11/03/17 05:00 82 18 130/70 (90) 100 Vapotherm 40.00 10.00 11/03/17 04:00 83 21 116/65 (82) 98 Vapotherm 40.00 10.00 11/03/17 04:00 96 Vapotherm 10.00 40 11/03/17 03:23 96 Vapotherm 10.00 45 11/03/17 03:00 86 22 133/77 (95) 97 Vapotherm 40.00 10.00 11/03/17 02:00 89 17 120/68 (85) 99 Vapotherm 40.00 10.00 11/03/17 01:00 81 11/03/17 01:00 81 20 124/72 (89) 100 Vapotherm 40.00 10.00 11/03/17 00:00 95 Vapotherm 10.00 40 11/03/17 00:00 78 20 123/73 (90) 100 Vapotherm 40.00 10.00 11/02/17 23:00 84 18 122/74 (90) 99 Vapotherm 40.00 10.00 11/02/17 22:00 91 20 120/66 (84) 92 Vapotherm 40.00 10.00 11/02/17 21:10 96 Vapotherm 10.00 45 11/02/17 21:00 92 30 117/74 (88) 96 Vapotherm 40.00 10.00 11/02/17 20:00 95 38 118/77 (91) 94 Vapotherm 40.00 10.00 11/02/17 20:00 94 Vapotherm 10.00 40 11/02/17 19:00 96 12 111/68 (82) 98 Vapotherm 40.00 10.00 11/02/17 19:00 96 11/02/17 18:00 94 26 108/63 (78) 93 40.00 10.00 11/02/17 17:00 92 20 120/79 (93) 97 Vapotherm 40.00 10.00 11/02/17 16:00 96 Vapotherm 10.00 40 11/02/17 16:00 98.4 91 30 125/73 (90) 98 Vapotherm 40.00 10.00 11/02/17 15:00 98 25 126/78 (94) 96 Vapotherm 40.00 10.00 11/02/17 14:00 103 11 116/72 (87) 96 Vapotherm 40.00 10.00 11/02/17 13:00 96 22 104/70 (81) 96 Vapotherm 40.00 10.00 11/02/17 12:55 96 11/02/17 12:00 96 Vapotherm 10.00 40 11/02/17 12:00 92 10 112/75 (87) 95 Vapotherm 40.00 10.00 11/02/17 11:00 105 13 113/65 (81) 96 Vapotherm 40.00 10.00 11/02/17 10:00 96 12 103/80 (88) 96 Vapotherm 40.00 10.00 11/02/17 09:00 93 23 111/64 (80) 95 Vapotherm 45.00 10.00 11/02/17 09:00 95 Vapotherm 10.00 45 11/02/17 08:00 94 Nasal Cannula 5.00 11/02/17 08:00 97.8 105 29 134/72 (92) 91 Vapotherm 45.00 10.00 11/02/17 07:47 94 Vapotherm 10.00 45 11/02/17 07:29 Nasal Cannula 5.00 11/02/17 07:00 90 30 113/69 (84) 96 Nasal Cannula 3.00 11/02/17 07:00 90 11/02/17 06:00 84 17 124/63 (83) 97 Nasal Cannula 3.00 I & O 11/03/17 07:00 Intake Total 2660 ml Output Total 1750 ml Balance 910 ml General Appearance: No Apparent Distress, WD/WN, Chronically ill HEENT: PERRL/EOMI, Normal ENT Inspection, Pharynx Normal Neck: Full Range of Motion, Normal Inspection, Non Tender, Supple, Carotid Bruit Respiratory: Crackles, Respiratory Distress (mild), Wheezing Cardiovascular: Regular Rate, Rhythm, No Edema Capillary Refill: Less Than 3 Seconds Gastrointestinal: normal bowel sounds, non tender, soft Extremity: Normal Capillary Refill, Normal Inspection, Normal Range of Motion, Non Tender, No Calf Tenderness, No Pedal Edema Neurologic/Psychiatric: Alert, Oriented x3, No Motor/Sensory Deficits, Normal Mood/Affect Skin: Normal Color, Warm/Dry Lymphatic: No Adenopathy Results Lab Laboratory Tests 11/02/17 03:20 11/03/17 03:00 Assessment/Plan Assessment/Plan Acute on chronic respiratory failure -Pt had increased oxygen requirements last night. -will repeat CT scan today with contrast -possible bronch tomorrow AM. Pt is on plavix will do BAL, washings only. -SVNs ILD-- Pt has heavy black mold in her house. -Pt's is planning on getting black mold cleaned up - I recommend professional signs cleaner for mold removal --Solumedrol decrease to 40 IV Q 6 CHFAE - hx of diastolic CHF EF 60% -continue lasix CAD with recent [place] debility/weakness -PT/OT 233 Critical Care: Critically Ill Patient JUANA WILLS DO Nov 03, 2017 05:59
[2017-11-03] MEDS: FUROSEMIDE 40 MG/4 ML INJ (LASIX) IVP SCH (06:11)
[2017-11-03] MEDS: LEVOTHYROXINE 75 MCG (LEVOTHROID) TABLET PO SCH (06:56)
--- NOTE | 2017-11-03 07:17 | Diagnostic Imaging Report ---
EXAM: CHEST 1 VIEW, AP/PA ONLY INDICATION: Hypoxia. CHF. COMPARISON: Chest radiograph 11/02/2017. FINDINGS: Cardiomegaly. Central pulmonary vascularity is obscured. Stable diffuse interstitial and airspace opacities. Elevation of the right hemidiaphragm. No pleural effusion or pneumothorax. No acute osseous findings. IMPRESSION: Stable cardiomegaly and diffuse interstitial and airspace opacities. Dictated by: Dictated on workstation # [id number]
--- NOTE | 2017-11-03 07:42 | Progress Note (SOAP) ---
Subjective Time Seen by Provider: 07:35 Subjective/Events-last exam Patient feels 45 percent better since admission. Patient to have bronchoscopy tomorrow. Patient still short of breath with exertion. Patient on Vapotherm. Patient has hyponatremia. Objective Exam Vital Signs Date Time Temp Pulse Resp B/P (MAP) Pulse Ox O2 Delivery O2 Flow Rate FiO2 11/03/17 06:00 74 18 141/87 (105) 100 Vapotherm 40.00 10.00 11/03/17 05:00 82 18 130/70 (90) 100 Vapotherm 40.00 10.00 11/03/17 04:00 83 21 116/65 (82) 98 Vapotherm 40.00 10.00 11/03/17 04:00 96 Vapotherm 10.00 40 11/03/17 03:23 96 Vapotherm 10.00 45 11/03/17 03:00 86 22 133/77 (95) 97 Vapotherm 40.00 10.00 11/03/17 02:00 89 17 120/68 (85) 99 Vapotherm 40.00 10.00 11/03/17 01:00 81 11/03/17 01:00 81 20 124/72 (89) 100 Vapotherm 40.00 10.00 11/03/17 00:00 95 Vapotherm 10.00 40 11/03/17 00:00 78 20 123/73 (90) 100 Vapotherm 40.00 10.00 11/02/17 23:00 84 18 122/74 (90) 99 Vapotherm 40.00 10.00 11/02/17 22:00 91 20 120/66 (84) 92 Vapotherm 40.00 10.00 11/02/17 21:10 96 Vapotherm 10.00 45 11/02/17 21:00 92 30 117/74 (88) 96 Vapotherm 40.00 10.00 11/02/17 20:00 95 38 118/77 (91) 94 Vapotherm 40.00 10.00 11/02/17 20:00 94 Vapotherm 10.00 40 11/02/17 19:00 96 12 111/68 (82) 98 Vapotherm 40.00 10.00 11/02/17 19:00 96 11/02/17 18:00 94 26 108/63 (78) 93 40.00 10.00 11/02/17 17:00 92 20 120/79 (93) 97 Vapotherm 40.00 10.00 11/02/17 16:00 96 Vapotherm 10.00 40 11/02/17 16:00 98.4 91 30 125/73 (90) 98 Vapotherm 40.00 10.00 11/02/17 15:00 98 25 126/78 (94) 96 Vapotherm 40.00 10.00 11/02/17 14:00 103 11 116/72 (87) 96 Vapotherm 40.00 10.00 11/02/17 13:00 96 22 104/70 (81) 96 Vapotherm 40.00 10.00 11/02/17 12:55 96 11/02/17 12:00 96 Vapotherm 10.00 40 11/02/17 12:00 92 10 112/75 (87) 95 Vapotherm 40.00 10.00 11/02/17 11:00 105 13 113/65 (81) 96 Vapotherm 40.00 10.00 11/02/17 10:00 96 12 103/80 (88) 96 Vapotherm 40.00 10.00 11/02/17 09:00 93 23 111/64 (80) 95 Vapotherm 45.00 10.00 11/02/17 09:00 95 Vapotherm 10.00 45 11/02/17 08:00 94 Nasal Cannula 5.00 11/02/17 08:00 97.8 105 29 134/72 (92) 91 Vapotherm 45.00 10.00 11/02/17 07:47 94 Vapotherm 10.00 45 I & O 11/03/17 06:59 Intake Total 3110 ml Output Total 2250 ml Balance 860 ml Capillary Refill : Less Than 3 Seconds General Appearance: No Apparent Distress, WD/WN HEENT: Normal ENT Inspection Neck: Full Range of Motion Respiratory: Chest Non Tender, No Accessory Muscle Use, No Respiratory Distress , Decreased Breath Sounds Cardiovascular: Regular Rate, Rhythm, No Murmur Gastrointestinal: non tender, soft Results Lab Laboratory Tests 11/03/17 03:00 Laboratory Tests 11/02/17 08:58: Blood Gas Puncture Site LT RAD, Blood Gas Patient Temperature 96.9, Arterial Blood pH 7.50H, Arterial Blood Partial Pressure CO2 37, Arterial Blood Partial Pressure O2 97H, Arterial Blood HCO3 29H, Arterial Blood Total CO2 30.5, Arterial Blood Oxygen Saturation 99, Arterial Blood Base Excess 5.8H, Corey Test YES-POS, Blood Gas Ventilator Setting NO, Blood Gas Inspired Oxygen 10L AND 45% 11/03/17 03:00: White Blood Count 8.8, Red Blood Count 3.93L, Hemoglobin 12.1, Hematocrit 35, Mean Corpuscular Volume 89, Mean Corpuscular Hemoglobin 31, Mean Corpuscular Hemoglobin Concent 35, Red Cell Distribution Width 13.1, Platelet Count 212, Mean Platelet Volume 10.2, Neutrophils (%) (Auto) 87H, Lymphocytes (%) (Auto) 6L , Monocytes (%) (Auto) 7, Eosinophils (%) (Auto) 0, Basophils (%) (Auto) 0, Neutrophils # (Auto) 7.6, Lymphocytes # (Auto) 0.5L, Monocytes # (Auto) 0.7, Eosinophils # (Auto) 0.0, Basophils # (Auto) 0.0, Sodium Level 129L, Potassium Level 3.7, Chloride Level 90L, Carbon Dioxide Level 27, Anion Gap 12, Blood Urea Nitrogen 18, Creatinine 0.65, Estimat Glomerular Filtration Rate > 60, BUN/ Creatinine Ratio 28, Glucose Level 222H, Calcium Level 8.7, Phosphorus Level 3.1 , Magnesium Level 2.1, B-Type Natriuretic Peptide 135.1H Microbiology 11/01/17 MRSA Screen - Final, Complete Assessment/Plan Assessment/Plan Assess & Plan/Chief Complaint Short of breath. Acute and chronic respiratory failure. Diastolic congestive heart failure Coronary artery disease. Recent myocardial infarction. Debility. Hypoxia. Chronic eosinophil pneumonia. Hyponatremia Clinical Quality Measures DVT/VTE Risk/Contraindication: Risk Factor Score Per Nursin RFS Level Per Nursing on Admit: 2=Moderate ABRAM BRITT DO Nov 03, 2017 07:42
[2017-11-03] MEDS: CLOPIDOGREL 75 MG (PLAVIX) TABLET PO SCH (08:39)
[2017-11-03] MEDS: LORATADINE (CLARITIN) 10 MG TAB PO SCH (08:39)
[2017-11-03] MEDS: BENZONATATE 100 MG (TESSALON) CAPSULE PO SCH ×3 (08:39→21:33)
[2017-11-03] MEDS: VENlafaxine 37.5 MG (EFFEXOR) TAB PO SCH (08:39)
[2017-11-03] MEDS: DOCUSATE SODIUM 100 MG (COLACE) CAP PO SCH ×2 (08:40→21:33)
[2017-11-03] MEDS: PANTOPRAZOLE 40 MG/10 ML (PROTONIX) VIAL IV SCH (08:40)
[2017-11-03] MEDS: LACTULOSE SYRUP 10GM/15ML (ENULOSE) 30ML UDC PO SCH ×2 (08:40→21:33)
[2017-11-03] MEDS: ASPIRIN 81 MG CHEW (CHILDREN'S ASA) PO SCH (08:40)
[2017-11-03] MEDS: ENOXAPARIN 40 MG/0.4 ML (LOVENOX) SYR SC SCH (08:40)
--- NOTE | 2017-11-03 08:46 | Progress Note-Cardiology ---
Cardiology SOAP Progress Note Subjective: Continues to c/o shortness of breath. No c/o CP or palpitations. C/o frequent cough. Objective: I&O/Vital Signs 11/03/17 11/03/17 11/03/17 11/03/17 01:00 01:00 02:00 03:00 Pulse 81 81 89 86 Resp 20 17 22 B/P (MAP) 124/72 (89) 120/68 (85) 133/77 (95) Pulse Ox 100 99 97 O2 Delivery Vapotherm Vapotherm Vapotherm O2 Flow Rate 40.00 40.00 40.00 10.00 10.00 10.00 11/03/17 11/03/17 11/03/17 11/03/17 03:23 04:00 04:00 05:00 Pulse 83 82 Resp 21 18 B/P (MAP) 116/65 (82) 130/70 (90) Pulse Ox 96 96 98 100 O2 Delivery Vapotherm Vapotherm Vapotherm Vapotherm O2 Flow Rate 10.00 10.00 40.00 40.00 10.00 10.00 FiO2 45 40 11/03/17 11/03/17 11/03/17 11/03/17 06:00 07:00 07:00 08:00 Temp 97.6 Pulse 74 81 84 Resp 18 22 B/P (MAP) 141/87 (105) 128/83 (98) Pulse Ox 100 98 98 O2 Delivery Vapotherm Vapotherm Vapotherm O2 Flow Rate 40.00 40.00 10.00 10.00 10.00 FiO2 40 11/03/17 11/03/17 11/03/17 11/03/17 08:00 09:00 10:00 10:00 Temp 97.6 Pulse 79 96 92 Resp 27 31 17 B/P (MAP) 125/83 (97) 125/73 (90) 119/75 (90) Pulse Ox 97 99 100 100 O2 Delivery Vapotherm Vapotherm Vapotherm Vapotherm O2 Flow Rate 40.00 40.00 40.00 10.00 10.00 10.00 10.00 FiO2 45 11/03/17 11/03/17 11/03/17 11/03/17 11:00 11:01 12:00 12:00 Temp 98.0 Pulse 106 85 Resp 15 32 B/P (MAP) 114/66 (82) 110/71 (84) Pulse Ox 94 93 98 98 O2 Delivery Vapotherm Vapotherm Vapotherm Vapotherm O2 Flow Rate 40.00 10.00 10.00 40.00 10.00 10.00 FiO2 40 40 11/03/17 00:00 Intake Total 1730 ml Output Total 650 ml Balance 1080 ml Weight (Pounds): 123 Weight (Ounces): 3.0 Weight (Calculated Kilograms): [id number] Constitutional: AAO x 3, well-developed, other Respiratory: No accessory muscle use; other (Fair bilat air entry, coarse basal crackles, resonance to percussion) Cardiovascular: regular rate-rhythm, S1 and S2, systolic murmur (soft CEDRICK at card base) Gastrointestional: No tender; soft; No guarding, No rebound; audible bowel sounds Extremities: No clubbing, No cyanosis, No significant edema Neurologic/Psychiatric: oriented x 3, grossly intact, power is 5/5 both on sides Skin: No rash on exposed areas, No ulcerations on exposed areas Results/Procedures: Labs Laboratory Tests 11/03/17 03:00: White Blood Count 8.8, Red Blood Count 3.93L, Hemoglobin 12.1, Hematocrit 35, Mean Corpuscular Volume 89, Mean Corpuscular Hemoglobin 31, Mean Corpuscular Hemoglobin Concent 35, Red Cell Distribution Width 13.1, Platelet Count 212, Mean Platelet Volume 10.2, Neutrophils (%) (Auto) 87H, Lymphocytes (%) (Auto) 6L , Monocytes (%) (Auto) 7, Eosinophils (%) (Auto) 0, Basophils (%) (Auto) 0, Neutrophils # (Auto) 7.6, Lymphocytes # (Auto) 0.5L, Monocytes # (Auto) 0.7, Eosinophils # (Auto) 0.0, Basophils # (Auto) 0.0, Sodium Level 129L, Potassium Level 3.7, Chloride Level 90L, Carbon Dioxide Level 27, Anion Gap 12, Blood Urea Nitrogen 18, Creatinine 0.65, Estimat Glomerular Filtration Rate > 60, BUN/ Creatinine Ratio 28, Glucose Level 222H, Calcium Level 8.7, Phosphorus Level 3.1 , Magnesium Level 2.1, B-Type Natriuretic Peptide 135.1H Microbiology 6/9/18 MRSA Screen - Final, Complete Procedures NAME: LEYLA CASTELLANO [facility] REC#: [id number] PT STATUS: ADM IN : 1945 PHYSICIAN: ZHANNA CARMONA DO ADMIT DATE: 10/31/17/ICU Draft Date of Exam:11/03/17 CHEST 1 VIEW, AP/PA ONLY EXAM: CHEST 1 VIEW, AP/PA ONLY INDICATION: Hypoxia. CHF. COMPARISON: Chest radiograph 11/02/2017. FINDINGS: Cardiomegaly. Central pulmonary vascularity is obscured. Stable diffuse interstitial and airspace opacities. Elevation of the right hemidiaphragm. No pleural effusion or pneumothorax. No acute osseous findings. IMPRESSION: Stable cardiomegaly and diffuse interstitial and airspace opacities. Dictated on workstation # [id number] Dict: 11/03/1707 Trans: 11/03/17 0717 [id number] Interpreted by: DOLORES BRUCE MD Electronically signed by: A/P: Assessment: Ac on chronic resp failure, multifactorial (see below) Ac on chronic diastolic CHF - clinically improved Interstitial lung disease. Bibasilar pulmonary infiltrates during hosp of July and August 2017: CHF vs atelectasis vs pneumonia; unchanged on CT of 08/25/17. 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 Last CT chest of 10/09/17 showed some improvement of groundgass infiltrates and no new abnromality Hyponatremia, likely related to diuretic therapy Coronary artery disease, status post cardiac catheterization done by Dr. 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 There is no significant residual stenosis in the right coronary artery and the flow was normal, but right ventricular branch was lost during the procedure due to infarct-related thrombus. A 90% to 95% stenosis of the proximal left circumflex artery, which was treated with stenting with Alpine Xience 2.25 x 12 mm stent with reduction of stenosis to 0% residual. The left anterior descending artery has diffuse etzt-[id number] disease Relative hypotension, improved after d/c bb and BRETT-inhibitor Echo of 11/01/17: LVEF 50-55%, grade I rouse dysfunction, no significant pericard eff or valvular heart disease, PASP 25-30 mmHg Well preserved global left ventricular systolic function with ejection fraction 60%, postero-basal hypokinesis, no significant mitral regurgitation and mild elevation of left ventricular end-diastolic pressure on LHC of 08/04/17 TSH 0.26 on lab of 08-05-17 - suggestive of hyperthyroidism Elevated ESR, followed and treated by Pulm and Med Svce Plan: * Complex management due to multiple comorbidities * Treat CHF with diuretics and ILD with steroids * Worsening hyponatremia - reduce diuretics and give gentle IVF hydration * Monitor labs * Keep in ICU until clinical stabilization * Continue dual antiplatelet therapy * Dr. Schumacher has had a long discussion with her and her fam regarding her CV issues and our treatment plan * Not a suitable candidate for bb due to h/o hypotension on such agents * D/W Dr. Schumacher Physician Assessment Physician Assessment Shortness of breath persistent. No cp or palp or syncope Lungs: basal coarse crackles Cor: reg Ext: no c/c/e A&R * As documented in our note above that I updated (italics) and as noted below * Complex management * Bronchoscopy being considered. Agree. Cardiac risk for bronchoscopy is estimated to be intermediate * Will try to add low dose bb to the regimen * Monitor labs * Keep in ICU * I spoke with her and answered her questions ABHISHEK BANDA Nov 03, 2017 08:46 LIZY SCHUMACHER MD [facility] Nov 03, 2017 12:34
[2017-11-03] MEDS: NS IV 1000 ML 1,000 ML IV SCH ×2 (09:56→23:15)
[2017-11-03] MEDS: RT-ADVAIR HFA 115/21 MCG PER PUFF IH SCH ×2 (09:59→21:23)
[2017-11-03] MEDS ORDERED: NS 250 ML (IVPB) BAG IV ONE (10:30)
[2017-11-03] MEDS ORDERED: IOHEXOL 350 MG/ML 150 ML (OMNIPAQUE 350) VIAL IV ONE (10:30)
--- NOTE | 2017-11-03 11:21 | Physical Therapy Evaluation ---
PT Evaluation-General Medical Diagnosis Admission Date Oct 31, 2017 at 23:00 Medical Diagnosis: CHF/hypoxia Onset Date: Oct 31, 2017 Therapy Diagnosis Therapy Diagnosis: generalized weakness/debility Height/Weight Height (Feet): 5 Height (Inches): 0.00 Weight (Pounds): 123 Weight (Ounces): 3.0 Precautions Precautions/Isolations: Standard Precautions Weight Bear Status Right Lower Extremity: Right Full Weight Bearing Left Lower Extremity: Left Full Weight Bearing Referral Physician: Avelina Reason for Referral: Evaluation/Treatment Medical History Pertinent Medical History: CAD, Heart Failure, HTN, Hypothroidism Additional Medical History respiratory failure Current History ED secondary to SOB Reviewed History: Yes Social History Home: Single Level Current Living Status: Spouse Prior/Core FIM Prior Level of Function Functional [place] Measure 0=Not Assessed/NA 4=Minimal Assistance 1=Total Assistance 5=Supervision or Setup 2=Maximal Assistance 6=Modified [place] 3=Moderate Assistance 7=Complete [place] Bed Mobility: 6 Transfers (B,C,W/C) (FIM): 6 Gait: 6 PT Evaluation-Current Subjective Patient agrees to PT. Pain Numeric Pain Scale: 0-No Pain Location: No Pain Reported Objective Patient Orientation: Normal For Age Problem Solving: Fair Attachments: Oxygen (vapotherm), Tsang Catheter, IV ROM/Strength ROM Lower Extremities bilateral LE WNL Strength Lower Extremities 4+/5 grossly bilaterally Integumentary/Posture Integumentary refer to nursing notes Bowel Incontinence: No Bladder Incontinence: Tsang Cath Posture WFL Neuromuscular (Tone, Coordination, Reflexes) grossly intact Sensory Vision: Wears Glasses Hearing: Functional Sensation Right Lower Extremit: Intact Sensation Left Lower Extremity: Intact Transfers Functional [place] Measure 0=Not Assessed/NA 4=Minimal Assistance 1=Total Assistance 5=Supervision or Setup 2=Maximal Assistance 6=Modified [place] 3=Moderate Assistance 7=Complete [place] Transfers (B, C, W/C) (FIM): 7 Scootin Rollin Supine to/from Sit: 7 Sit to/from Stand: 7 Gait Mode of Locomotion: Walk Anticipated Mode of Locomotion: Walk Balance Sitting Static: Normal Sitting Dynamic: Normal Standing Static: Normal Standing Dynamic: Normal Assessment/Needs 72 y.o. female, is currently on nvcolmdtt30%/10L and is limited with mobility due to this. Patient will benefit from skilled PT to address functional mobility to improve current LOF and to address pulmonary function with mobility to return to home safely with family. Rehab Potential: Fair PT Plan Problem List Problem List: Activity Tolerance Treatment/Plan Treatment Plan: Continue Plan of Care Treatment Plan: Education, Functional Activity Herb, Functional Strength, Gait , Safety, Therapeutic Exercise, Transfers Treatment Duration: Nov 21, 2017 Frequency: 6 times per week Estimated Hrs Per Day: .5 hour per day Patient and/or Family Agrees t: Yes Time/GCodes Time In: 1045 Time Out: 1100 Total Billed Treatment Time: 15 Total Billed Treatment 1 [facility] 15 min SOFIE SIMMONS PT Nov 03, 2017 11:21
[2017-11-03] MEDS ORDERED: FLUT12AE4 IH (13:14)
[2017-11-03] MEDS ORDERED: PRED10TA22 PO (13:14)
[2017-11-03] MEDS ORDERED: ASPI-999 PO (13:22)
[2017-11-03] MEDS ORDERED: CLOP75TA69 PO (13:22)
[2017-11-03] MEDS ORDERED: ATOR80TA64 PO (13:22)
--- NOTE | 2017-11-03 16:06 | Occupational Therapy Eval ---
OT Evaluation-General/PLF Medical Diagnosis Admission Date Oct 31, 2017 at 23:00 Medical Diagnosis: CHF/hypoxia Onset Date: Oct 31, 2017 Therapy Diagnosis Therapy Diagnosis: Weakness Height/Weight Height (Feet): 5 Height (Inches): 0.00 Weight (Pounds): 123 Weight (Ounces): 3.0 Precautions Precautions/Isolations: Standard Precautions Safety Interventions: None Weight Bear Status Weight Bearing Restriction: Weight Bearing/Tolerated Referral Physician: Avelina Referral Reason: Activity Tolerance, Self Care, Evaluation/Treatment, Strengthening/ROM Medical History Pertinent Medical History: CAD, Heart Failure, HTN, Hypothroidism Additional Medical History asthma Current History Pt. states that she was doing well at home. Became SOA and had difficulty breathing. Came to ER. Reviewed History: Yes Social History Home: Single Level Current Living Status: Spouse Entry Into Home: Stairs With Railing Steps Into Home: 3 ADL-Prior Level of Function ADL PLOF Comments Pt. states that she was independent with all ADL tasks at home. States that she was using a cane to ambulate, and wore 2 L oxygen at home 16/12. DME/Equipment: Bath Chair, Tub/Shower OT Current Status Subjective No pain reported. Appearance Pt. sitting up in chair. Pt. had just transferred there not long before, and was awaiting a CT scan. Mental Status/Objective Patient Orientation: Person, Place, Time, Situation Current Hand Dominance: Right Upper Extremity ROM WFL ADL-Treatment Functional [place] Measure 0=Not Assessed/NA 4=Minimal Assistance 1=Total Assistance 5=Supervision or Setup 2=Maximal Assistance 6=Modified [place] 3=Moderate Assistance 7=Complete IndependenceIRFPAI Quality Coding Scale 6 Independent with activity with or without an assistive device 5 Patient requires set up or clean up by helper. Patient completes activity by themselves 4 Supervision or touching assist (CGA). [place] provide cues , steadying assist 3 The helper provides less than half the effort to complete the activity 2 The helper provides more than half the effort to complete the activity 1 Dependent. The helper does all the effort to complete an activity 7 Patient refused to complete or attempt activity 9 The patient did not perform the activity before the current illness or injury 88 Not attempted due to Medical conditions or safety concerns Lower Body Dressing (FIM): 5 (Doff/don socks.) Pt. reports that she is eating fine. Has multiple tubes and vapotherm on. Pt. states that she was able to stand and pivot to chair. States that she would like to stay there. Does not want to transfer back to bed yet. Pt. is familiar with OT due to recent and past hospital visits. OT educated her again on process and pt. reports understanding. Education OT Patient Education: Correct positioning, Progress toward Goal/Update tx plan , Purpose of tx/functional activities, Reviewed precautions, Rehab process Teaching Recipient: Patient, Family Teaching Methods: Demonstration, Discussion Response to Teaching: Verbalize Understanding, Return Demonstration OT Short Term Goals Short Term Goals 1=Demonstrate adherence to instructed precautions during ADL tasks. 2=Patient will verbalize/demonstrate understanding of assistive devices/ modifications for ADL. 3=Patient will improve strength/tolerance for activity to enable patient to perform ADL's. OT Intermediate Goals Intermediate Goals Time Frame: Nov 17, 2017 Eating (FIM): 6 Grooming(FIM): 6 Bathing(FIM): 5 Upper Body Dressing(FIM): 6 Lower Body Dressing(FIM): 5 Toileting(FIM): 6 Transfers (B,C,W/C) (FIM): 6 Toilet/Commode Transfer(FIM): 6 Shower Transfer(FIM): 5 Additional Goals: 1-Demonstrate ADL Tasks, 2-Verbalize Understanding, 3- ImproveStrength/Herb 1=Demonstrate adherence to instructed precautions during ADL tasks. 2=Patient will verbalize/demonstrate understanding of assistive devices/ modifications for ADL. 3=Patient will improve strength/tolerance for activity to enable patient to perform ADL's. OT Education/Plan Problem List/Assessment Assessment: Decreased Activ Tolerance, Impaired I ADL's, Impaired Self-Care Skills Discharge Recommendations Plan/Recommendations: Continue POC Therapy D/C Recommendations: Home w/ Family Support, Occupational Therapy Home Care Treatment Plan/Plan of Care Treatment,Training & Education: Yes Patient would benefit from OT for education, treatment and training to promote independence in ADL's, mobility, safety and/or upper extremity function for ADL' s. Plan of Care: ADL Retraining, Functional Mobility, UE Funct Exercise/Act Treatment Duration: Nov 17, 2017 Frequency: 5 times per week Estimated Hrs Per Day: .25 hour per day Agreement: Yes Rehab Potential: Good Time/GCodes Start Time: 11:45 Stop Time: 12:00 Total Time Billed (hr/min): 15 Billed Treatment Time 1, MORGAN SNIDER OT Nov 03, 2017 16:06
--- NOTE | 2017-11-03 16:31 | Diagnostic Imaging Report ---
PROCEDURE: CT angiography of the chest with contrast. TECHNIQUE: Multiple contiguous axial images were obtained through the chest after uneventful bolus administration of intravenous contrast. Reconstructed CTA MIP acquisitions were also performed. INDICATION: Respiratory distress. COMPARISON: 10/09/2017. FINDINGS: There are no intraluminal pulmonary arterial filling defects. There is no pulmonary arterial embolus. The thoracic aorta is patent and nonacute. There is mild cardiomegaly, unchanged. There is some prominence of the venous structures, unchanged. 5 lobed interstitial opacities and groundglass densities with subpleural fibrosis are all unchanged from the prior exam. The degree of septal thickening and perihilar groundglass disease may be slightly increased from the prior exam and, in addition to the chronic lung disease, some pulmonary edema may have developed in the interim. There is no effusion. There is no pneumothorax. There is no acute soft tissue or osseous chest wall pathology. The visualized upper abdomen is unremarkable. IMPRESSION: There are no findings of PE. Chronic lung disease is present; however, there is some progressive perihilar groundglass density and the change itself may reflect the formation of some perihilar edema. There is no pleural fluid, however, and no pneumothorax. The upper abdomen is nonacute with a stable aorta. Dictated by: Dictated on workstation # [id number]
[2017-11-03] MEDS: ATORVASTATIN 80 MG (LIPITOR) TABLET PO SCH (21:33)
[2017-11-04] VITALS (24 sets, daily range): BP systolic 85–139; BP diastolic 52–83
[2017-11-04] MEDS: methylPREDNISolone 40 MG/ML (Solu-MEDROL) VIAL IV SCH ×5 (00:13→23:47)
[2017-11-04] MEDS: RT-ALBUTEROL/IPRATROPIUM 3 ML (DUONEB) VIAL INH SCH ×4 (02:35→19:22)
[2017-11-04 03:58] LABS: BASOPHILS % (AUTO) 0 % (0-10); EOSINOPHILS % (AUTO) 0 % (0-10); HEMATOCRIT 35 % (35-52); HEMOGLOBIN 12.2 G/DL (11.5-16.0); LYMPHOCYTES # (AUTO) 0.4 X 10^3 (1.0-4.0); LYMPHOCYTES % (AUTO) 6 % (12-44); MEAN CORPUSCULAR HEMOGLOBIN 31 PG (25-34); MEAN CORPUSCULAR HGB CONC 35 G/DL (32-36); MEAN CORPUSCULAR VOLUME 90 FL (80-99); MEAN PLATELET VOLUME 10.5 FL (7.4-10.4); MONOCYTES # (AUTO) 0.4 X 10^3 (0.0-1.0); MONOCYTES % (AUTO) 7 % (0-12); NEUTROPHILS # (AUTO) 5.3 X 10^3 (1.8-7.8); NEUTROPHILS % (AUTO) 87 % (42-75); PLATELET COUNT 204 10^3/uL (130-400); RED BLOOD COUNT 3.91 10^6/uL (4.35-5.85); RED CELL DISTRIBUTION WIDTH 12.9 % (10.0-14.5); WHITE BLOOD COUNT 6.1 10^3/uL (4.3-11.0)
[2017-11-04 04:27] LABS: BUN/CREATININE RATIO 20; CALCIUM 8.4 MG/DL (8.5-10.1); CARBON DIOXIDE 25 MMOL/L (21-32); CHLORIDE 99 MMOL/L (98-107); GFR ESTIMATED > 60; GLUCOSE 224 MG/DL (70-105); MAGNESIUM 2.2 MG/DL (1.8-2.4); PHOSPHORUS 2.7 MG/DL (2.3-4.7); SODIUM 134 MMOL/L (135-145)
--- NOTE | 2017-11-04 05:56 | Pulmonary Progress Note ---
Subjective Time Seen by Provider: 05:55 Subjective/Events-last exam Pt is requiring less oxygen however still hypoxic. Exam Exam Vital Signs Date Time Temp Pulse Resp B/P (MAP) Pulse Ox O2 Delivery O2 Flow Rate FiO2 11/04/17 05:24 99 Nasal Cannula 2.00 11/04/17 02:00 69 17 113/63 (80) 100 High Flow N/C 4.00 11/04/17 01:00 73 19 109/66 (80) 100 High Flow N/C 4.00 11/04/17 01:00 72 11/04/17 00:00 95 High Flow N/C 4.00 11/04/17 00:00 75 17 100/66 (77) 100 High Flow N/C 4.00 11/03/17 23:00 75 14 108/62 (77) 100 High Flow N/C 4.00 11/03/17 22:00 86 14 120/74 (89) 99 High Flow N/C 4.00 11/03/17 21:22 100 Nasal Cannula 4.00 11/03/17 21:00 78 37 120/75 (90) 100 High Flow N/C 4.00 11/03/17 20:00 92 27 109/72 (84) 96 High Flow N/C 4.00 11/03/17 20:00 95 High Flow N/C 4.00 11/03/17 20:00 97.1 11/03/17 19:00 101 11/03/17 19:00 99 18 137/85 (102) 98 High Flow N/C 4.00 11/03/17 18:00 82 27 125/75 (92) 100 High Flow N/C 4.00 11/03/17 17:00 88 26 123/67 (85) 98 High Flow N/C 4.00 11/03/17 16:00 99.0 93 26 136/71 (92) 96 High Flow N/C 4.00 11/03/17 16:00 96 High Flow N/C 4.00 11/03/17 15:17 93 Vapotherm 10.00 40 11/03/17 14:47 86 23 125/75 (92) 98 Vapotherm 40.00 10.00 11/03/17 13:00 87 11/03/17 13:00 87 23 142/85 (104) 97 Vapotherm 40.00 10.00 11/03/17 12:00 98.0 85 32 110/71 (84) 98 Vapotherm 40.00 10.00 11/03/17 12:00 98 Vapotherm 10.00 40 11/03/17 11:01 93 Vapotherm 10.00 40 11/03/17 11:00 106 15 114/66 (82) 94 Vapotherm 40.00 10.00 11/03/17 10:00 100 Vapotherm 10.00 45 11/03/17 10:00 92 17 119/75 (90) 100 Vapotherm 40.00 10.00 11/03/17 09:00 96 31 125/73 (90) 99 Vapotherm 40.00 10.00 11/03/17 08:00 97.6 79 27 125/83 (97) 97 Vapotherm 40.00 10.00 11/03/17 08:00 98 Vapotherm 10.00 40 11/03/17 07:00 97.6 84 22 128/83 (98) 98 Vapotherm 40.00 10.00 11/03/17 07:00 81 11/03/17 06:00 74 18 141/87 (105) 100 Vapotherm 40.00 10.00 I & O 11/04/17 07:00 Intake Total 1360 ml Output Total 1900 ml Balance -540 ml General Appearance: No Apparent Distress, WD/WN HEENT: Normal ENT Inspection Neck: Full Range of Motion Respiratory: Chest Non Tender, No Accessory Muscle Use, No Respiratory Distress , Decreased Breath Sounds Cardiovascular: Regular Rate, Rhythm, No Murmur Capillary Refill: Less Than 3 Seconds Gastrointestinal: non tender, soft Extremity: Normal Capillary Refill, Normal Inspection, Normal Range of Motion, Non Tender, No Calf Tenderness, No Pedal Edema Neurologic/Psychiatric: Alert, Oriented x3, No Motor/Sensory Deficits, Normal Mood/Affect Skin: Normal Color, Warm/Dry Lymphatic: No Adenopathy Results Lab Laboratory Tests 11/03/17 03:00 11/04/17 03:25 Assessment/Plan Assessment/Plan Acute on chronic respiratory failure -Hypoxemia has improved since admission. -Pt had increased oxygen requirements last night. -SVNs ILD-- Pt has heavy black mold in her house. -CT scan reviewed and shows ILD with traction bronchiectasis - not much change since last CT scan. No pleural effusions. -will do bronchoscopy this AM r/o infectious/fungal etiology -Pt's is planning on getting black mold cleaned up - I recommend professional dry cleaner hand for mold removal --Solumedrol decrease to 40 IV Q 6 CHFAE - hx of diastolic CHF EF 60% -continue lasix CAD with recent DC debility/weakness -PT/OT 233 Critical Care: Critically Ill Patient JUANA WILLS DO Nov 04, 2017 05:56
[2017-11-04] MEDS ORDERED: MIDAZOLAM 5 MG/5 ML (VERSED) VIAL IVP ONE (06:00)
[2017-11-04] MEDS ORDERED: fentaNYL INJECTION 250 MCG/5 ML AMP IVP ONE (06:00)
[2017-11-04] MEDS ORDERED: fentaNYL INJECTION 100 MCG/2 ML AMP ONE (06:06)
[2017-11-04] MEDS ORDERED: fentaNYL INJECTION 100 MCG/2 ML AMP IVP ONE (06:30)
[2017-11-04] MEDS ORDERED: MIDAZOLAM 2 MG/2 ML (VERSED) VIAL IVP ONE (06:30)
--- NOTE | 2017-11-04 06:59 | Pulmonary Procedures ---
Pulmonary Procedures Date of Procedure Date of Service: Nov 04, 2017 Bronch Bronchoscopy with bronchoalveolar lavage (BAL), transbronchial washes . Preop DX ILD Postop DX: same Complications: none After informed consent obtained and formal time out pt was sedated using Fentanyl and Versed. Bronchoscope was advanced through the nare and vocal cords. 1% lidocaine was used to anesthetize vocal cords, epiglottis, lulu, and left/right main stem bronchus. An anatomical tour was undertaken down to the segmental bronchi bilaterally. No endobronchial lesions noted. From the LLL a bronchoalveolar lavage (BAL), transbronchial washes were obtained. Pt tolerated procedure well. No complications noted. Stat CXR is pending. JUANA WILLS DO Nov 04, 2017 06:59
--- NOTE | 2017-11-04 07:44 | Progress Note (SOAP) ---
Subjective Time Seen by Provider: 07:32 Subjective/Events-last exam Patient already had bronchoscopy this a.m. Before bronchoscopy patient felt 50 percent better. Have to bronchoscopy patient feels 75 percent better. Shortness of breath is less. Patient feel she is breathing better Objective Exam Vital Signs Date Time Temp Pulse Resp B/P (MAP) Pulse Ox O2 Delivery O2 Flow Rate FiO2 11/04/17 06:14 18 11/04/17 06:00 73 20 139/83 (101) 100 High Flow N/C 4.00 11/04/17 05:24 99 Nasal Cannula 2.00 11/04/17 05:00 77 19 134/77 (96) 100 High Flow N/C 4.00 11/04/17 04:00 95 High Flow N/C 4.00 11/04/17 04:00 71 19 109/63 (78) 100 High Flow N/C 4.00 11/04/17 03:00 78 20 115/62 (79) 97 High Flow N/C 4.00 11/04/17 02:00 69 17 113/63 (80) 100 High Flow N/C 4.00 11/04/17 01:00 73 19 109/66 (80) 100 High Flow N/C 4.00 11/04/17 01:00 72 11/04/17 00:00 95 High Flow N/C 4.00 11/04/17 00:00 75 17 100/66 (77) 100 High Flow N/C 4.00 11/03/17 23:00 75 14 108/62 (77) 100 High Flow N/C 4.00 11/03/17 22:00 86 14 120/74 (89) 99 High Flow N/C 4.00 11/03/17 21:22 100 Nasal Cannula 4.00 11/03/17 21:00 78 37 120/75 (90) 100 High Flow N/C 4.00 11/03/17 20:00 92 27 109/72 (84) 96 High Flow N/C 4.00 11/03/17 20:00 95 High Flow N/C 4.00 11/03/17 20:00 97.1 11/03/17 19:00 101 11/03/17 19:00 99 18 137/85 (102) 98 High Flow N/C 4.00 11/03/17 18:00 82 27 125/75 (92) 100 High Flow N/C 4.00 11/03/17 17:00 88 26 123/67 (85) 98 High Flow N/C 4.00 11/03/17 16:00 99.0 93 26 136/71 (92) 96 High Flow N/C 4.00 11/03/17 16:00 96 High Flow N/C 4.00 11/03/17 15:17 93 Vapotherm 10.00 40 11/03/17 14:47 86 23 125/75 (92) 98 Vapotherm 40.00 10.00 11/03/17 13:00 87 11/03/17 13:00 87 23 142/85 (104) 97 Vapotherm 40.00 10.00 11/03/17 12:00 98.0 85 32 110/71 (84) 98 Vapotherm 40.00 10.00 11/03/17 12:00 98 Vapotherm 10.00 40 11/03/17 11:01 93 Vapotherm 10.00 40 11/03/17 11:00 106 15 114/66 (82) 94 Vapotherm 40.00 10.00 11/03/17 10:00 100 Vapotherm 10.00 45 11/03/17 10:00 92 17 119/75 (90) 100 Vapotherm 40.00 10.00 11/03/17 09:00 96 31 125/73 (90) 99 Vapotherm 40.00 10.00 11/03/17 08:00 97.6 79 27 125/83 (97) 97 Vapotherm 40.00 10.00 11/03/17 08:00 98 Vapotherm 10.00 40 I & O 11/04/17 07:00 Intake Total 1360 ml Output Total 3000 ml Balance -1640 ml Capillary Refill : Less Than 3 Seconds General Appearance: No Apparent Distress, WD/WN HEENT: Normal ENT Inspection Neck: Full Range of Motion, Normal Inspection Respiratory: No Accessory Muscle Use, No Respiratory Distress, Decreased Breath Sounds Cardiovascular: Regular Rate, Rhythm, No Murmur Gastrointestinal: non tender, soft Results Lab Laboratory Tests 11/04/17 03:25: White Blood Count 6.1, Red Blood Count 3.91L, Hemoglobin 12.2, Hematocrit 35, Mean Corpuscular Volume 90, Mean Corpuscular Hemoglobin 31, Mean Corpuscular Hemoglobin Concent 35, Red Cell Distribution Width 12.9, Platelet Count 204, Mean Platelet Volume 10.5H, Neutrophils (%) (Auto) 87H, Lymphocytes (%) (Auto) 6L, Monocytes (%) (Auto) 7, Eosinophils (%) (Auto) 0, Basophils (%) (Auto) 0, Neutrophils # (Auto) 5.3, Lymphocytes # (Auto) 0.4L, Monocytes # (Auto) 0.4, Eosinophils # (Auto) 0.0, Basophils # (Auto) 0.0, Sodium Level 134L, Potassium Level 4.0, Chloride Level 99, Carbon Dioxide Level 25, Anion Gap 10, Blood Urea Nitrogen 12, Creatinine 0.60, Estimat Glomerular Filtration Rate > 60, BUN/ Creatinine Ratio 20, Glucose Level 224H, Calcium Level 8.4L, Phosphorus Level 2.7, Magnesium Level 2.2 Microbiology 11/01/17 MRSA Screen - Final, Complete Assessment/Plan Assessment/Plan Assess & Plan/Chief Complaint Short of breath. Acute and chronic respiratory failure. Diastolic congestive heart failure Coronary artery disease. Recent myocardial infarction. Debility. Hypoxia. Chronic eosinophil pneumonia. Hyponatremia. . 11/04/17. Patient had bronchoscopy this morning. Shortness of breath better. Acute and chronic respiratory failure. Diastolic congestive heart failure. Coronary artery disease. Recent myocardial infarction. Debility. Hyponatremia. Patient feeling better this morning Clinical Quality Measures DVT/VTE Risk/Contraindication: Risk Factor Score Per Nursin RFS Level Per Nursing on Admit: 2=Moderate ABRAM BRITT DO Nov 04, 2017 07:44
[2017-11-04] MEDS: POTASSIUM CL 10MEQ/50ML IVPB 50 ML IV SCH (07:50)
[2017-11-04] MEDS: MAGNESIUM 1 GM/100 ML IVPB 100 ML IV SCH (07:51)
[2017-11-04] MEDS: KCL 20 MEQ TAB (K-DUR) PO SCH (07:51)
--- NOTE | 2017-11-04 08:11 | Diagnostic Imaging Report ---
INDICATION: CHF, hypoxia. COMPARISON: 11/03/2017. FINDINGS: Single view of the chest demonstrates cardiac enlargement with stable bilateral interstitial infiltrates. No large effusion is seen. There is no pneumothorax. Osseous structures are stable. IMPRESSION: Cardiac enlargement with unchanged interstitial pulmonary edema. Dictated by: Dictated on workstation # [id number]
[2017-11-04] MEDS: FUROSEMIDE 40 MG/4 ML INJ (LASIX) IVP SCH (08:12)
[2017-11-04] MEDS: LACTULOSE SYRUP 10GM/15ML (ENULOSE) 30ML UDC PO SCH ×3 (08:12→20:31)
[2017-11-04] MEDS: LEVOTHYROXINE 75 MCG (LEVOTHROID) TABLET PO SCH (08:12)
[2017-11-04] MEDS: CLOPIDOGREL 75 MG (PLAVIX) TABLET PO SCH (08:13)
[2017-11-04] MEDS: ENOXAPARIN 40 MG/0.4 ML (LOVENOX) SYR SC SCH (08:13)
[2017-11-04] MEDS: PANTOPRAZOLE 40 MG/10 ML (PROTONIX) VIAL IV SCH (08:13)
[2017-11-04] MEDS: BENZONATATE 100 MG (TESSALON) CAPSULE PO SCH ×3 (08:13→20:31)
[2017-11-04] MEDS: ASPIRIN 81 MG CHEW (CHILDREN'S ASA) PO SCH (08:13)
[2017-11-04] MEDS: LORATADINE (CLARITIN) 10 MG TAB PO SCH (08:13)
[2017-11-04] MEDS: DOCUSATE SODIUM 100 MG (COLACE) CAP PO SCH ×2 (08:13→20:31)
[2017-11-04] MEDS: VENlafaxine 37.5 MG (EFFEXOR) TAB PO SCH (08:13)
[2017-11-04] MEDS: RT-ADVAIR HFA 115/21 MCG PER PUFF IH SCH ×2 (09:26→19:22)
--- NOTE | 2017-11-04 10:00 | Diagnostic Imaging Report ---
INDICATION: Post bronchoscopy. Frontal chest obtained at 9:46 a.m. and compared to same day at 3:07 a.m. FINDINGS: There is cardiomegaly. Patchy interstitial infiltrates are again noted and appears similar to the prior study. There is no pneumothorax or pleural fluid post-bronchoscopy. There is unchanged elevation of the right hemidiaphragm. IMPRESSION: Stable interstitial infiltrates compared to the prior study with cardiomegaly and elevation of the right hemidiaphragm. No pneumothorax or pleural fluid post-bronchoscopy. Dictated by: Dictated on workstation # [id number]
--- NOTE | 2017-11-04 10:41 | Progress Note-Cardiology ---
Cardiology SOAP Progress Note Subjective: Sitting up in bed post bronch. Frequent cough. No c/o CP. Feels her SOB is somewhat better. No c/o palpitations. Objective: I&O/Vital Signs 11/04/17 11/04/17 11/04/17 11/04/17 07:00 07:00 07:00 08:00 Temp 97.7 Pulse 100 102 76 Resp 37 18 B/P (MAP) 113/78 (90) 115/70 (85) Pulse Ox 90 97 O2 Delivery Vapotherm Vapotherm Vapotherm O2 Flow Rate 40.00 40.00 40.00 10.00 10.00 10.00 11/04/17 11/04/17 11/04/17 11/04/17 08:00 09:00 09:24 09:30 Pulse 74 Resp 15 B/P (MAP) 118/69 (85) Pulse Ox 99 96 93 O2 Delivery Vapotherm Vapotherm Vapotherm Vapotherm O2 Flow Rate 10.00 40.00 10.00 8.00 10.00 FiO2 40 40 40 11/04/17 11/04/17 11/04/17 11/04/17 09:30 09:45 10:00 11:00 Pulse 111 90 Resp 19 22 B/P (MAP) 85/52 (63) 105/61 (76) Pulse Ox 94 100 O2 Delivery Vapotherm Vapotherm Vapotherm O2 Flow Rate 40.00 50.00 50.00 50.00 8.00 8.00 8.00 8.00 11/04/17 11/04/17 11/04/17 11/04/17 12:00 12:00 12:00 13:00 Temp 97.6 Pulse 101 96 Resp 13 B/P (MAP) 101/67 (78) 124/71 (88) Pulse Ox 100 100 O2 Delivery Vapotherm Vapotherm Vapotherm Vapotherm O2 Flow Rate 50.00 50.00 8.00 50.00 10.00 10.00 10.00 FiO2 50 11/04/17 11/04/17 11/04/17 11/04/17 13:00 14:00 15:00 15:52 Pulse 89 95 87 Resp 44 44 B/P (MAP) 108/68 (81) 110/67 (81) Pulse Ox 95 99 100 O2 Delivery Vapotherm Vapotherm Vapotherm O2 Flow Rate 50.00 50.00 10.00 10.00 10.00 FiO2 40 11/04/17 11/04/17 11/04/17 11/04/17 15:52 16:00 16:00 16:00 Temp 97.2 Pulse 91 96 Resp 12 B/P (MAP) 115/70 (85) Pulse Ox 100 100 O2 Delivery Vapotherm Vapotherm Vapotherm O2 Flow Rate 10.00 50.00 40.00 10.00 10.00 FiO2 50 11/04/17 11/04/17 17:00 18:00 Pulse 106 93 Resp 21 34 B/P (MAP) 115/76 (89) 111/70 (84) Pulse Ox 95 98 O2 Delivery Vapotherm Vapotherm O2 Flow Rate 50.00 50.00 10.00 10.00 11/04/17 00:00 Intake Total 880 ml Output Total 1400 ml Balance -520 ml Weight (Pounds): 123 Weight (Ounces): 3.0 Weight (Calculated Kilograms): [id number] Constitutional: AAO x 3, well-developed, other Respiratory: No accessory muscle use; other (Fair bilat air entry, coarse basal crackles) Cardiovascular: regular rate-rhythm, S1 and S2, systolic murmur (soft CEDRICK at card base) Gastrointestional: No tender; soft; No guarding, No rebound; audible bowel sounds Extremities: No clubbing, No cyanosis, No significant edema Neurologic/Psychiatric: oriented x 3, grossly intact, power is 5/5 both on sides Skin: No rash on exposed areas, No ulcerations on exposed areas Results/Procedures: Labs Laboratory Tests 11/04/17 03:25: White Blood Count 6.1, Red Blood Count 3.91L, Hemoglobin 12.2, Hematocrit 35, Mean Corpuscular Volume 90, Mean Corpuscular Hemoglobin 31, Mean Corpuscular Hemoglobin Concent 35, Red Cell Distribution Width 12.9, Platelet Count 204, Mean Platelet Volume 10.5H, Neutrophils (%) (Auto) 87H, Lymphocytes (%) (Auto) 6L, Monocytes (%) (Auto) 7, Eosinophils (%) (Auto) 0, Basophils (%) (Auto) 0, Neutrophils # (Auto) 5.3, Lymphocytes # (Auto) 0.4L, Monocytes # (Auto) 0.4, Eosinophils # (Auto) 0.0, Basophils # (Auto) 0.0, Sodium Level 134L, Potassium Level 4.0, Chloride Level 99, Carbon Dioxide Level 25, Anion Gap 10, Blood Urea Nitrogen 12, Creatinine 0.60, Estimat Glomerular Filtration Rate > 60, BUN/ Creatinine Ratio 20, Glucose Level 224H, Calcium Level 8.4L, Phosphorus Level 2.7, Magnesium Level 2.2 Microbiology 11/01/17 MRSA Screen - Final, Complete Laboratory Tests 11/03/17 03:00 11/04/17 03:25 Procedures NAME: LEYLA [facility]LLANO [facility] REC#: [id number] PT STATUS: ADM IN : 1945 PHYSICIAN: JUANA QUAN DO ADMIT DATE: 10/31/17/ICU Signed Date of Exam: 11/04/17 CHEST 1 VIEW, AP/PA ONLY INDICATION: Post bronchoscopy. Frontal chest obtained at 9:46 a.m. and compared to same day at 3:07 a.m. FINDINGS: There is cardiomegaly. Patchy interstitial infiltrates are again noted and appears similar to the prior study. There is no pneumothorax or pleural fluid post-bronchoscopy. There is unchanged elevation of the right hemidiaphragm. IMPRESSION: Stable interstitial infiltrates compared to the prior study with cardiomegaly and elevation of the right hemidiaphragm. No pneumothorax or pleural fluid post-bronchoscopy. Dictated by: Dictated on workstation # [id number] Dict: 11/04/17 0954 Trans: 11/04/17 1013 Interpreted by: VANESSA PANCHAL MD Electronically signed by: VANESSA PANCHAL MD 11/04/17 1013 A/P: Assessment: Ac on chronic resp failure, multifactorial (see below) Ac on chronic diastolic CHF - clinically improved Interstitial lung disease. Bibasilar pulmonary infiltrates during hosp of July and August 2017: CHF vs atelectasis vs pneumonia; unchanged on CT of 08/25/17. 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 Last CT chest of 10/09/17 showed some improvement of ground glass infiltrates and no new abnormality Hyponatremia, likely related to diuretic therapy Coronary artery disease, status post cardiac catheterization done by Dr. 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 There is no significant residual stenosis in the right coronary artery and the flow was normal, but right ventricular branch was lost during the procedure due to infarct-related thrombus. A 90% to 95% stenosis of the proximal left circumflex artery, which was treated with stenting with Alpine Xience 2.25 x 12 mm stent with reduction of stenosis to 0% residual. The left anterior descending artery has diffuse [id number] disease Relative hypotension, improved after d/c bb and BRETT-inhibitor Echo of 11/01/17: LVEF 50-55%, grade I rouse dysfunction, no significant pericard eff or valvular heart disease, PASP 25-30 mmHg Well preserved global left ventricular systolic function with ejection fraction 60%, postero-basal hypokinesis, no significant mitral regurgitation and mild elevation of left ventricular end-diastolic pressure on LHC of 08/04/17 TSH 0.26 on lab of 08-05-17 - suggestive of hyperthyroidism Elevated ESR, followed and treated by Pulm and Med Svce Plan: * Complex management due to multiple comorbidities * Treat CHF with diuretics and ILD with steroids * Hyponatremia improving - reduce IVF * Monitor labs * Keep in ICU until clinical stabilization * Continue dual antiplatelet therapy * Dr. Schumacher has had a long discussion with her and her fam regarding her CV issues and our treatment plan * Tolerating low dose BB * S/P bronchoscopy on 11-04-17 Physician Assessment Physician Assessment Shortness of breath modestly improved. No cp or palp or syncope Lungs: fair bilat air entry; coarse basal crackles Cor: reg Ext: no c/c/e A&R * As documented in our note above that I updated (italics) and as noted below * Continue current regimen * Monitor labs * Dr Bailey covering card svce until 11/10/17 ABHISHEK BANDA DIRECTOR OF THERAPY SERVICES Nov 04, 2017 10:41 LIZY SCHUMACHER MD [facility] Nov 04, 2017 18:35
[2017-11-04] MEDS: NS IV 1000 ML 1,000 ML IV SCH (12:29)
--- NOTE | 2017-11-04 14:20 | Occupational Ther Daily Note ---
OT Current Status-Daily Note Subjective Pt alert, lying in bed. Pt agrees to therapy. No c/o pain. Mental Status/Objective Patient Orientation: Person, Place, Time, Situation Functional [place] Measure 0=Not Assessed/NA 4=Minimal Assistance 1=Total Assistance 5=Supervision or Setup 2=Maximal Assistance 6=Modified [place] 3=Moderate Assistance 7=Complete [place] Other Treatment Pt completed UE isometric exercises against gravity. Pt demonstrated understanding of exercises and tolerated well. Pt instructed to complete throughout the day. Pt requested theraband exercises and handout, will give to pt next session. After therapy, pt lying in bed. Call light/phone in reach. All needs met in room. Education OT Patient Education: Exercise program Teaching Recipient: Patient Teaching Methods: Demonstration, Discussion Response to Teaching: Return Demonstration OT Short Term Goals Short Term Goals 1=Demonstrate adherence to instructed precautions during ADL tasks. 2=Patient will verbalize/demonstrate understanding of assistive devices/ modifications for ADL. 3=Patient will improve strength/tolerance for activity to enable patient to perform ADL's. OT Waste Machine Tender Goals Mcc Goals Time Frame: Nov 17, 2017 Eating (FIM): 6 Grooming(FIM): 6 Bathing(FIM): 5 Upper Body Dressing(FIM): 6 Lower Body Dressing(FIM): 5 Toileting(FIM): 6 Transfers (B,C,W/C) (FIM): 6 Toilet/Commode Transfer(FIM): 6 Shower Transfer(FIM): 5 Additional Goals: 1-Demonstrate ADL Tasks, 2-Verbalize Understanding, 3- ImproveStrength/Herb 1=Demonstrate adherence to instructed precautions during ADL tasks. 2=Patient will verbalize/demonstrate understanding of assistive devices/ modifications for ADL. 3=Patient will improve strength/tolerance for activity to enable patient to perform ADL's. OT Education/Plan Discharge Recommendations Plan/Recommendations: Continue POC Treatment Plan/Plan of Care Patient would benefit from OT for education, treatment and training to promote independence in ADL's, mobility, safety and/or upper extremity function for ADL' s. Plan of Care: ADL Retraining, Functional Mobility, UE Funct Exercise/Act Treatment Duration: Nov 17, 2017 Frequency: 5 times per week Estimated Hrs Per Day: .25 hour per day Agreement: Yes Rehab Potential: Good Time/GCodes Start Time: 13:30 Stop Time: 13:45 Total Time Billed (hr/min): 15 Billed Treatment Time 1 visit-EX 1 (15 min) PAOLA BUITRAGO Nov 04, 2017 14:20
--- NOTE | 2017-11-04 14:21 | Physical Therapy Daily Note ---
PT Daily Note-Current Subjective Patient agrees to PT. She reports she is feeling better today. Pain Numeric Pain Scale: 0-No Pain Location: No Pain Reported Mental Status Patient Orientation: Normal For Age Attachments: Oxygen (vapotherm), Tsang Catheter, IV Transfers Functional Stevens Measure 0=Not Assessed/NA 4=Minimal Assistance 1=Total Assistance 5=Supervision or Setup 2=Maximal Assistance 6=Modified [place] 3=Moderate Assistance 7=Complete IndependenceIRFPAI Quality Coding Scale 6 Independent with activity with or without an assistive device 5 Patient requires set up or clean up by helper. Patient completes activity by themselves 4 Supervision or touching assist (CGA). Harper provide cues , steadying assist 3 The helper provides less than half the effort to complete the activity 2 The helper provides more than half the effort to complete the activity 1 Dependent. The helper does all the effort to complete an activity 7 Patient refused to complete or attempt activity 9 The patient did not perform the activity before the current illness or injury 88 Not attempted due to Medical conditions or safety concerns Transfers (B, C, W/C) (FIM): 7 Scootin Rollin Supine to/from Sit: 7 Sit to/from Stand: 7 Bed to/from Chair: 7 Weight Bearing Right Lower Extremity: Right Full Weight Bearing Left Lower Extremity: Left Full Weight Bearing Exercises Standing: Marching Standing Reps: 253 (3 sets) Assessment Patient does require sitting recovery periods due to SOA and decreased SAO2 to 85% on vapotherm. Patient does recover, however, it does take ~ 2 minutes. Patient improving slowly. PT Plan Treatment/Plan Treatment Plan: Continue Plan of Care Treatment Plan: Education, Functional Activity Herb, Functional Strength, Gait , Safety, Therapeutic Exercise, Transfers Treatment Duration: Nov 21, 2017 Frequency: 6 times per week Estimated Hrs Per Day: .5 hour per day Patient and/or Family Agrees t: Yes Time/GCodes Time In: 1400 Time Out: 1415 Total Billed Treatment Time: 15 Total Billed Treatment 1 visit EX 15 min SOFIE SIMMONS PT Nov 04, 2017 14:21
[2017-11-04] MEDS: ATORVASTATIN 80 MG (LIPITOR) TABLET PO SCH (20:30)
[2017-11-05] VITALS (25 sets, daily range): BP systolic 101–137; BP diastolic 56–82
[2017-11-05] MEDS: RT-ALBUTEROL/IPRATROPIUM 3 ML (DUONEB) VIAL INH SCH ×4 (01:47→21:11)
[2017-11-05 04:16] LABS: BASOPHILS % (AUTO) 0 % (0-10); EOSINOPHILS % (AUTO) 0 % (0-10); HEMATOCRIT 37 % (35-52); HEMOGLOBIN 12.4 G/DL (11.5-16.0); LYMPHOCYTES # (AUTO) 0.4 X 10^3 (1.0-4.0); LYMPHOCYTES % (AUTO) 4 % (12-44); MEAN CORPUSCULAR HEMOGLOBIN 31 PG (25-34); MEAN CORPUSCULAR HGB CONC 34 G/DL (32-36); MEAN CORPUSCULAR VOLUME 91 FL (80-99); MEAN PLATELET VOLUME 10.2 FL (7.4-10.4); MONOCYTES # (AUTO) 0.5 X 10^3 (0.0-1.0); MONOCYTES % (AUTO) 6 % (0-12); NEUTROPHILS # (AUTO) 7.7 X 10^3 (1.8-7.8); NEUTROPHILS % (AUTO) 90 % (42-75); PLATELET COUNT 238 10^3/uL (130-400); RED BLOOD COUNT 4.06 10^6/uL (4.35-5.85); RED CELL DISTRIBUTION WIDTH 13.2 % (10.0-14.5); WHITE BLOOD COUNT 8.6 10^3/uL (4.3-11.0)
[2017-11-05 04:38] LABS: BUN/CREATININE RATIO 21; CALCIUM 8.3 MG/DL (8.5-10.1); CARBON DIOXIDE 28 MMOL/L (21-32); CHLORIDE 99 MMOL/L (98-107); CREATININE SERUM 0.61 MG/DL (0.60-1.30); GFR ESTIMATED > 60; GLUCOSE 203 MG/DL (70-105); MAGNESIUM 2.2 MG/DL (1.8-2.4); PHOSPHORUS 2.7 MG/DL (2.3-4.7); POTASSIUM 3.9 MMOL/L (3.6-5.0); SODIUM 135 MMOL/L (135-145)
[2017-11-05 04:42] LABS: BAND NEUTROPHILS 0 %; BASOPHILS % (MANUAL) 0 %; ELLIPT/OVALOCYTES SLIGHT; EOSINOPHILS % (MANUAL) 0 %; LYMPHOCYTES % (MANUAL) 3 %; MONOCYTES % (MANUAL) 5 %; NEUTROPHILS % (MANUAL) 92 %; POIKILOCYTOSIS SLIGHT; TEAR DROP CELLS SLIGHT
[2017-11-05] MEDS: POTASSIUM CL 10MEQ/50ML IVPB 50 ML IV SCH (06:12)
[2017-11-05] MEDS: KCL 20 MEQ TAB (K-DUR) PO SCH (06:12)
[2017-11-05] MEDS: MAGNESIUM 1 GM/100 ML IVPB 100 ML IV SCH (06:12)
[2017-11-05] MEDS: methylPREDNISolone 40 MG/ML (Solu-MEDROL) VIAL IV SCH ×3 (06:17→18:11)
[2017-11-05] MEDS: LEVOTHYROXINE 75 MCG (LEVOTHROID) TABLET PO SCH (06:17)
[2017-11-05] MEDS: RT-ADVAIR HFA 115/21 MCG PER PUFF IH SCH ×2 (06:51→21:11)
--- NOTE | 2017-11-05 07:41 | Progress Note (SOAP) ---
Subjective Time Seen by Provider: 07:40 Subjective/Events-last exam Patient feeling better today. Patient states she's breathing better today. Patient uptight about not getting this morning. Patient had a few PVCs otherwise sinus rhythm Objective Exam Vital Signs Date Time Temp Pulse Resp B/P (MAP) Pulse Ox O2 Delivery O2 Flow Rate FiO2 11/05/17 06:52 95 Vapotherm 10.00 30 11/05/17 06:51 95 Vapotherm 10.00 30 11/05/17 06:00 74 21 105/56 (72) 92 Vapotherm 50.00 10.00 11/05/17 05:00 73 19 112/58 (76) 100 Vapotherm 50.00 10.00 11/05/17 04:00 Vapotherm 10.00 50 11/05/17 04:00 79 28 103/63 (76) 98 Vapotherm 50.00 10.00 11/05/17 03:00 80 21 104/60 (75) 99 Vapotherm 50.00 10.00 11/05/17 02:00 83 23 115/68 (84) 94 Vapotherm 50.00 10.00 11/05/17 01:47 93 Vapotherm 10.00 30 11/05/17 01:00 80 11/05/17 01:00 80 23 114/69 (84) 99 Vapotherm 50.00 10.00 11/05/17 00:09 76 21 129/75 (93) 100 Vapotherm 50.00 10.00 11/05/17 00:00 Vapotherm 10.00 50 11/05/17 00:00 97.6 11/04/17 23:02 80 26 118/81 (93) 100 Vapotherm 50.00 10.00 11/04/17 22:00 110 34 96/83 (87) 85 Vapotherm 50.00 10.00 11/04/17 21:00 79 28 107/72 (84) 96 Vapotherm 50.00 10.00 11/04/17 20:00 Vapotherm 10.00 50 11/04/17 20:00 97.8 Vapotherm 50.00 10.00 11/04/17 19:22 99 Vapotherm 10.00 40 11/04/17 19:00 87 11/04/17 19:00 98 27 113/67 (82) 97 Vapotherm 50.00 10.00 11/04/17 18:00 93 34 111/70 (84) 98 Vapotherm 50.00 10.00 11/04/17 17:00 106 21 115/76 (89) 95 Vapotherm 50.00 10.00 11/04/17 16:00 97.2 Vapotherm 40.00 10.00 11/04/17 16:00 96 12 115/70 (85) 100 Vapotherm 50.00 10.00 11/04/17 16:00 Vapotherm 10.00 50 11/04/17 15:52 91 100 11/04/17 15:52 100 Vapotherm 10.00 40 11/04/17 15:00 87 44 110/67 (81) 99 Vapotherm 50.00 10.00 11/04/17 14:00 95 44 108/68 (81) 95 Vapotherm 50.00 10.00 11/04/17 13:00 89 11/04/17 13:00 96 13 124/71 (88) 100 Vapotherm 50.00 10.00 11/04/17 12:00 Vapotherm 8.00 50 11/04/17 12:00 101 101/67 (78) 100 Vapotherm 50.00 10.00 11/04/17 12:00 97.6 Vapotherm 50.00 10.00 11/04/17 11:00 90 22 105/61 (76) 100 Vapotherm 50.00 8.00 11/04/17 10:00 111 19 85/52 (63) 94 50.00 8.00 11/04/17 09:45 Vapotherm 50.00 8.00 11/04/17 09:30 Vapotherm 40.00 8.00 11/04/17 09:30 93 Vapotherm 8.00 40 11/04/17 09:24 96 Vapotherm 10.00 40 11/04/17 09:00 74 15 118/69 (85) 99 Vapotherm 40.00 10.00 11/04/17 08:00 Vapotherm 10.00 40 11/04/17 08:00 76 18 115/70 (85) 97 Vapotherm 40.00 10.00 I & O 11/05/17 07:00 Intake Total 1750 ml Output Total 3245 ml Balance -1495 ml Capillary Refill : Less Than 3 Seconds General Appearance: No Apparent Distress, WD/WN HEENT: Normal ENT Inspection Neck: Full Range of Motion, Normal Inspection Respiratory: Chest Non Tender, No Accessory Muscle Use, No Respiratory Distress Cardiovascular: Regular Rate, Rhythm, Other (Patient previously) Gastrointestinal: non tender, soft Results Lab Laboratory Tests 11/05/17 03:50 Laboratory Tests 11/05/17 03:50: White Blood Count 8.6, Red Blood Count 4.06L, Hemoglobin 12.4, Hematocrit 37, Mean Corpuscular Volume 91, Mean Corpuscular Hemoglobin 31, Mean Corpuscular Hemoglobin Concent 34, Red Cell Distribution Width 13.2, Platelet Count 238, Mean Platelet Volume 10.2, Neutrophils (%) (Auto) 90H, Lymphocytes (%) (Auto) 4L , Monocytes (%) (Auto) 6, Eosinophils (%) (Auto) 0, Basophils (%) (Auto) 0, Neutrophils # (Auto) 7.7, Lymphocytes # (Auto) 0.4L, Monocytes # (Auto) 0.5, Eosinophils # (Auto) 0.0, Basophils # (Auto) 0.0, Neutrophils % (Manual) 92, Lymphocytes % (Manual) 3, Monocytes % (Manual) 5, Eosinophils % (Manual) 0, Basophils % (Manual) 0, Band Neutrophils 0, Poikilocytosis SLIGHT, Tear Drop Cells SLIGHT, Elliptocytes SLIGHT, Sodium Level 135, Potassium Level 3.9, Chloride Level 99, Carbon Dioxide Level 28, Anion Gap 8, Blood Urea Nitrogen 13 , Creatinine 0.61, Estimat Glomerular Filtration Rate > 60, BUN/Creatinine Ratio 21, Glucose Level 203H, Calcium Level 8.3L, Phosphorus Level 2.7, Magnesium Level 2.2 Microbiology 11/04/17 Gram Stain - Final, Resulted 11/04/17 Bronchial Culture - Preliminary, Resulted Staphylococcus aureus Presumptive Malena Albicans 11/04/17 Fungal Culture, Resulted Pending Assessment/Plan Assessment/Plan Assess & Plan/Chief Complaint Short of breath. Acute and chronic respiratory failure. Diastolic congestive heart failure Coronary artery disease. Recent myocardial infarction. Debility. Hypoxia. Chronic eosinophil pneumonia. Hyponatremia. . 11/04/17. Patient had bronchoscopy this morning. Shortness of breath better. Acute and chronic respiratory failure. Diastolic congestive heart failure. Coronary artery disease. Recent myocardial infarction. Debility. Hyponatremia. Patient feeling better this morning. . 11/05/17. Patient feeling better this morning. Short of breath. Acute and chronic respiratory failure. Hyponatremia resolved. Diastolic congestive heart failure. Coronary artery disease. Recent myocardial infarction. Debility. Sputum staph aureus and Malena. Clinical Quality Measures DVT/VTE Risk/Contraindication: Risk Factor Score Per Nursin RFS Level Per Nursing on Admit: 2=Moderate ABRAM BRITT DO Nov 05, 2017 07:41
[2017-11-05] MEDS: VENlafaxine 37.5 MG (EFFEXOR) TAB PO SCH (08:26)
[2017-11-05] MEDS: DOCUSATE SODIUM 100 MG (COLACE) CAP PO SCH ×2 (08:26→21:34)
[2017-11-05] MEDS: FUROSEMIDE 40 MG/4 ML INJ (LASIX) IVP SCH (08:26)
[2017-11-05] MEDS: LACTULOSE SYRUP 10GM/15ML (ENULOSE) 30ML UDC PO SCH ×2 (08:26→21:33)
[2017-11-05] MEDS: ASPIRIN 81 MG CHEW (CHILDREN'S ASA) PO SCH (08:27)
[2017-11-05] MEDS: PANTOPRAZOLE 40 MG/10 ML (PROTONIX) VIAL IV SCH (08:27)
[2017-11-05] MEDS: CLOPIDOGREL 75 MG (PLAVIX) TABLET PO SCH (08:27)
[2017-11-05] MEDS: LORATADINE (CLARITIN) 10 MG TAB PO SCH (08:27)
[2017-11-05] MEDS: BENZONATATE 100 MG (TESSALON) CAPSULE PO SCH ×3 (08:27→21:34)
[2017-11-05] MEDS: ENOXAPARIN 40 MG/0.4 ML (LOVENOX) SYR SC SCH (08:29)
[2017-11-05] MEDS: NS IV 1000 ML 1,000 ML IV SCH (08:29)
--- NOTE | 2017-11-05 09:32 | Diagnostic Imaging Report ---
INDICATION: Congestive heart failure. FINDINGS: The 5 lobed infiltrates are unchanged. Elevation of the right diaphragm is unchanged. The heart size is probably within normal limits. No effusion or pneumothorax. IMPRESSION: Unchanged bilateral infiltrates and right diaphragmatic elevation. Dictated by: Dictated on workstation # [id number]
--- NOTE | 2017-11-05 10:04 | Occupational Ther Daily Note ---
OT Current Status-Daily Note Subjective No pain reported. Appearance Pt. in bed. Agrees to work with OT. Declines out of bed activity at this time. States that she will get up later when PT comes in. Mental Status/Objective Patient Orientation: Person, Place, Time, Situation Functional [place] Measure 0=Not Assessed/NA 4=Minimal Assistance 1=Total Assistance 5=Supervision or Setup 2=Maximal Assistance 6=Modified [place] 3=Moderate Assistance 7=Complete [place] ADL-Treatment Pt. issued theraband and completed 5 bilateral UE exercises x 10 reps in all planes for increased overall strength. Requires several rest breaks. Pt. is encouraged to do another set but states that she will rest first, and then do them later. Pt. has been doing these exercises at home and is familiar with them. Education OT Patient Education: Correct positioning, Exercise program, Progress toward Goal/Update tx plan, Purpose of tx/functional activities, Reviewed precautions, Rehab process Teaching Recipient: Patient Teaching Methods: Demonstration Response to Teaching: Verbalize Understanding, Return Demonstration OT Short Term Goals Short Term Goals 1=Demonstrate adherence to instructed precautions during ADL tasks. 2=Patient will verbalize/demonstrate understanding of assistive devices/ modifications for ADL. 3=Patient will improve strength/tolerance for activity to enable patient to perform ADL's. OT American Indian Studies Professor Goals American Indian Studies Professor Goals Time Frame: Nov 17, 2017 Eating (FIM): 6 Grooming(FIM): 6 Bathing(FIM): 5 Upper Body Dressing(FIM): 6 Lower Body Dressing(FIM): 5 Toileting(FIM): 6 Transfers (B,C,W/C) (FIM): 6 Toilet/Commode Transfer(FIM): 6 Shower Transfer(FIM): 5 Additional Goals: 1-Demonstrate ADL Tasks, 2-Verbalize Understanding, 3- ImproveStrength/Herb 1=Demonstrate adherence to instructed precautions during ADL tasks. 2=Patient will verbalize/demonstrate understanding of assistive devices/ modifications for ADL. 3=Patient will improve strength/tolerance for activity to enable patient to perform ADL's. OT Education/Plan Problem List/Assessment Assessment: Decreased Activ Tolerance, Decreased UE Strength, Impaired I ADL's , Impaired Self-Care Skills Discharge Recommendations Plan/Recommendations: Continue POC Therapy D/C Recommendations: Home w/ Family Support, Occupational Therapy Home Care, Scheduled Assistance Treatment Plan/Plan of Care Treatment,Training & Education: Yes Patient would benefit from OT for education, treatment and training to promote independence in ADL's, mobility, safety and/or upper extremity function for ADL' s. Plan of Care: ADL Retraining, Functional Mobility, UE Funct Exercise/Act Treatment Duration: Nov 17, 2017 Frequency: 5 times per week Estimated Hrs Per Day: .25 hour per day Agreement: Yes Rehab Potential: Good Time/GCodes Start Time: 09:00 Stop Time: 09:15 Total Time Billed (hr/min): 15 Billed Treatment Time 1, EX MORGAN DIAZ OT Nov 05, 2017 10:04
--- NOTE | 2017-11-05 11:18 | Physical Therapy Daily Note ---
PT Daily Note-Current Subjective Pt laying Supine in bed upon arrival. Pt agrees to PT but reports feeling fatigued and wants to limit tx. Pain Location: No Pain Reported Mental Status Patient Orientation: Person, Place, Time, Situation Attachments: SCD's, Oxygen, Other-See Comments (Telemetry), IV Transfers Functional [place] Measure 0=Not Assessed/NA 4=Minimal Assistance 1=Total Assistance 5=Supervision or Setup 2=Maximal Assistance 6=Modified [place] 3=Moderate Assistance 7=Complete IndependenceIRFPAI Quality Coding Scale 6 Independent with activity with or without an assistive device 5 Patient requires set up or clean up by helper. Patient completes activity by themselves 4 Supervision or touching assist (CGA). [place] provide cues , steadying assist 3 The helper provides less than half the effort to complete the activity 2 The helper provides more than half the effort to complete the activity 1 Dependent. The helper does all the effort to complete an activity 7 Patient refused to complete or attempt activity 9 The patient did not perform the activity before the current illness or injury 88 Not attempted due to Medical conditions or safety concerns Scootin Rollin Supine to/from Sit: 7 Sit to/from Stand: 7 Bed to/from Chair: 7 Weight Bearing Right Lower Extremity: Right Full Weight Bearing Left Lower Extremity: Left Full Weight Bearing Gait Training Distance (FIM): 1=up to 49 ft Distance: 10' Gait Level of Assist: 6 Gait Persons Needed: 1 Gait Assistive Device: None Pt has slow gait but Independent & safe. Pt just needs some assistance with managing lines. Pt gets SOA quickly. Treatments Pt transfers from Supine to EOB at Indep. but gets SOA quickly. O2 only drops to 88% and fluctuates between 86-92% while resting depending on breathing & if pt is having coughing fit. Pt rests for several minutes to manage O2 level before transferring again. Pt transfers to Standing w/o AD and ambulates to recliner to rest. Pt again gets fatigued & SOA. ASSISTANT ADMINISTRATOR instructs again on Deep Breathing technique. Pt resting in recliner at end of tx with all needs met, including call light in hand. O2 at 90% at end of tx. Assessment Current Status: Fair Progress Pt fatigues and gets SOA quickly. Pt needs several minutes to recover. PT Plan Problem List Problem List: Activity Tolerance, Functional Strength, Gait Treatment/Plan Treatment Plan: Continue Plan of Care Treatment Plan: Education, Functional Activity Herb, Functional Strength, Gait , Safety, Therapeutic Exercise, Transfers Treatment Duration: Nov 21, 2017 Frequency: 6 times per week Estimated Hrs Per Day: .5 hour per day Patient and/or Family Agrees t: Yes Safety Risks/Education Patient Education: Safety Issues Teaching Recipient: Patient Teaching Methods: Discussion Response to Teaching: Verbalize Understanding Time/GCodes Time In: 1030 Time Out: 1053 Total Billed Treatment Time: 23 Total Billed Treatment 1, FA x2 (23m) G Codes Necessary: JULIO Jacob ASSISTANT ADMINISTRATOR Nov 05, 2017 11:18
[2017-11-05] MEDS: ATORVASTATIN 80 MG (LIPITOR) TABLET PO SCH (21:34)
[2017-11-06] VITALS (24 sets, daily range): BP systolic 91–144; BP diastolic 55–90
[2017-11-06] MEDS: methylPREDNISolone 40 MG/ML (Solu-MEDROL) VIAL IV SCH ×3 (00:48→21:41)
[2017-11-06] MEDS: RT-ALBUTEROL/IPRATROPIUM 3 ML (DUONEB) VIAL INH SCH ×4 (03:00→21:30)
[2017-11-06 03:36] LABS: BASOPHILS % (AUTO) 0 % (0-10); EOSINOPHILS % (AUTO) 0 % (0-10); HEMATOCRIT 36 % (35-52); HEMOGLOBIN 12.5 G/DL (11.5-16.0); LYMPHOCYTES # (AUTO) 0.5 X 10^3 (1.0-4.0); LYMPHOCYTES % (AUTO) 7 % (12-44); MEAN CORPUSCULAR HEMOGLOBIN 31 PG (25-34); MEAN CORPUSCULAR HGB CONC 35 G/DL (32-36); MEAN CORPUSCULAR VOLUME 91 FL (80-99); MEAN PLATELET VOLUME 10.4 FL (7.4-10.4); MONOCYTES # (AUTO) 0.4 X 10^3 (0.0-1.0); MONOCYTES % (AUTO) 6 % (0-12); NEUTROPHILS # (AUTO) 5.9 X 10^3 (1.8-7.8); NEUTROPHILS % (AUTO) 87 % (42-75); PLATELET COUNT 216 10^3/uL (130-400); RED BLOOD COUNT 3.98 10^6/uL (4.35-5.85); WHITE BLOOD COUNT 6.8 10^3/uL (4.3-11.0)
[2017-11-06 03:52] LABS: BUN/CREATININE RATIO 29; CARBON DIOXIDE 25 MMOL/L (21-32); CHLORIDE 99 MMOL/L (98-107); CREATININE SERUM 0.62 MG/DL (0.60-1.30); GFR ESTIMATED > 60; GLUCOSE 284 MG/DL (70-105); PHOSPHORUS 2.8 MG/DL (2.3-4.7); POTASSIUM 3.7 MMOL/L (3.6-5.0); SODIUM 134 MMOL/L (135-145)
[2017-11-06] MEDS: POTASSIUM CL 10MEQ/50ML IVPB 50 ML IV SCH (04:09)
[2017-11-06 04:10] LABS: CALCIUM 8.3 MG/DL (8.5-10.1)
[2017-11-06] MEDS: MAGNESIUM 1 GM/100 ML IVPB 100 ML IV SCH (04:10)
[2017-11-06] MEDS: KCL 20 MEQ TAB (K-DUR) PO SCH (04:10)
--- NOTE | 2017-11-06 05:27 | Pulmonary Progress Note ---
Subjective Time Seen by Provider: 06:20 Subjective/Events-last exam PT desaturates quickly with exertion. Exam Exam Vital Signs Date Time Temp Pulse Resp B/P (MAP) Pulse Ox O2 Delivery O2 Flow Rate FiO2 11/06/17 04:00 Vapotherm 6.00 30 11/06/17 03:01 94 Vapotherm 6.00 30 11/06/17 03:00 93 33 144/89 (107) 90 Vapotherm 30.00 6.00 11/06/17 02:00 72 21 116/71 (86) 99 Vapotherm 30.00 6.00 11/06/17 01:00 76 19 117/76 (90) 100 Vapotherm 30.00 6.00 11/06/17 01:00 77 11/06/17 00:00 78 18 132/77 (95) 100 Vapotherm 30.00 6.00 11/06/17 00:00 Vapotherm 6.00 30 11/05/17 23:00 88 29 127/82 (97) 97 Vapotherm 30.00 6.00 11/05/17 22:00 94 23 114/73 (87) 98 Vapotherm 30.00 6.00 11/05/17 21:32 98.1 96 16 127/73 (91) 94 Vapotherm 30.00 6.00 11/05/17 21:14 97 Vapotherm 6.00 30 11/05/17 21:00 88 29 127/73 (91) 97 Vapotherm 30.00 6.00 11/05/17 20:00 Vapotherm 6.00 30 11/05/17 20:00 91 32 130/77 (94) 97 Vapotherm 30.00 6.00 11/05/17 19:00 89 29 119/76 (90) 97 Vapotherm 30.00 6.00 11/05/17 19:00 93 11/05/17 18:00 95 16 137/75 (95) 90 Vapotherm 30.00 6.00 11/05/17 17:00 83 18 128/69 (88) 95 Vapotherm 30.00 6.00 11/05/17 16:33 97.6 11/05/17 16:00 88 20 119/74 (89) 96 Vapotherm 30.00 6.00 11/05/17 16:00 Vapotherm 6.00 30 11/05/17 15:07 Vapotherm 30.00 6.00 11/05/17 15:05 97 Vapotherm 10.00 30 11/05/17 15:00 87 22 107/63 (78) 97 Vapotherm 50.00 10.00 11/05/17 14:00 89 26 112/73 (86) 98 Vapotherm 50.00 10.00 11/05/17 13:00 88 11/05/17 13:00 89 25 104/69 (81) 96 Vapotherm 50.00 10.00 11/05/17 12:00 98.3 Vapotherm 50.00 10.00 11/05/17 12:00 Vapotherm 10.00 50 11/05/17 12:00 92 22 101/64 (76) 95 Vapotherm 50.00 10.00 11/05/17 11:00 93 18 108/60 (76) 90 Vapotherm 50.00 10.00 11/05/17 10:00 95 20 102/68 (79) 96 Vapotherm 50.00 10.00 11/05/17 09:00 89 22 108/65 (79) 93 Vapotherm 50.00 10.00 11/05/17 08:00 81 22 111/63 (79) 93 Vapotherm 50.00 10.00 11/05/17 08:00 Vapotherm 10.00 50 11/05/17 08:00 97.2 Vapotherm 50.00 10.00 11/05/17 07:00 99 18 122/67 (85) 100 Vapotherm 50.00 10.00 11/05/17 07:00 82 11/05/17 06:52 95 Vapotherm 10.00 30 11/05/17 06:51 95 Vapotherm 10.00 30 11/05/17 06:00 74 21 105/56 (72) 92 Vapotherm 50.00 10.00 I & O 11/06/17 07:00 Intake Total 790 ml Output Total 2125 ml Balance -1335 ml General Appearance: No Apparent Distress, WD/WN HEENT: Normal ENT Inspection Neck: Full Range of Motion, Normal Inspection Respiratory: Chest Non Tender, No Accessory Muscle Use, No Respiratory Distress Cardiovascular: Regular Rate, Rhythm, Other (Patient previously) Capillary Refill: Less Than 3 Seconds Gastrointestinal: non tender, soft Extremity: Normal Capillary Refill, Normal Inspection, Normal Range of Motion, Non Tender, No Calf Tenderness, No Pedal Edema Neurologic/Psychiatric: Alert, Oriented x3, No Motor/Sensory Deficits, Normal Mood/Affect Skin: Normal Color, Warm/Dry Lymphatic: No Adenopathy Results Lab Laboratory Tests 11/05/17 03:50 11/06/17 03:10 Assessment/Plan Assessment/Plan Acute on chronic respiratory failure -pt desaturates quickly with exertion -Hep lock IVF and give 80mg of Lasix x1 -Pt had increased oxygen requirements last night. -SVNs ILD-- Pt has heavy black mold in her house. -CT scan reviewed and shows ILD with traction bronchiectasis -s/p bronchoscopy -- BAL shows MSSA and candidiasis -Start Ancef and Eraxis -Pt's is planning on getting black mold cleaned up - I recommend professional poultry cleaner for mold removal --Solumedrol decrease to 40 IV Q 6 -- decrease to Q12 CHFAE - hx of diastolic CHF EF 60% -continue lasix CAD with recent [place] debility/weakness -PT/OT Will make patient ICU stepdown status and leave in ICU. 233 Critical Care: Critically Ill Patient JUANA WILLS DO Nov 06, 2017 05:26
[2017-11-06] MEDS ORDERED: ANIDULAFUNGIN INJECTION 200 MG in NS (IVPB) 250 ML IV ONE (05:30)
[2017-11-06] MEDS: FUROSEMIDE 40 MG/4 ML INJ (LASIX) IVP SCH (06:12)
[2017-11-06] MEDS ORDERED: FUROSEMIDE 40 MG/4 ML INJ (LASIX) IVP ONE (06:15)
[2017-11-06] MEDS: LEVOTHYROXINE 75 MCG (LEVOTHROID) TABLET PO SCH (06:56)
[2017-11-06] MEDS: PANTOPRAZOLE 40 MG (PROTONIX) TAB PO SCH (06:56)
[2017-11-06] MEDS: ceFAZolin INJECTION 1,000 MG in NS (IVPB) 50 ML IV SCH ×3 (06:56→21:42)
--- NOTE | 2017-11-06 07:36 | Progress Note (SOAP) ---
Subjective Time Seen by Provider: 07:20 Subjective/Events-last exam Patient desats with any exertion. Patient desats even getting hER water.. Patient had trouble breathing after going to the restroom. Patient gets short of breath just with coughing. Bronchial wash shows staph aureus Objective Exam Vital Signs Date Time Temp Pulse Resp B/P (MAP) Pulse Ox O2 Delivery O2 Flow Rate FiO2 11/06/17 06:00 107 25 121/90 (100) 95 Vapotherm 30.00 6.00 11/06/17 05:00 73 19 128/72 (90) 99 Vapotherm 30.00 6.00 11/06/17 04:00 Vapotherm 6.00 30 11/06/17 04:00 75 16 111/78 (89) 97 Vapotherm 30.00 6.00 11/06/17 03:01 94 Vapotherm 6.00 30 11/06/17 03:00 93 33 144/89 (107) 90 Vapotherm 30.00 6.00 11/06/17 02:00 72 21 116/71 (86) 99 Vapotherm 30.00 6.00 11/06/17 01:00 76 19 117/76 (90) 100 Vapotherm 30.00 6.00 11/06/17 01:00 77 11/06/17 00:00 78 18 132/77 (95) 100 Vapotherm 30.00 6.00 11/06/17 00:00 Vapotherm 6.00 30 11/05/17 23:00 88 29 127/82 (97) 97 Vapotherm 30.00 6.00 11/05/17 22:00 94 23 114/73 (87) 98 Vapotherm 30.00 6.00 11/05/17 21:32 98.1 96 16 127/73 (91) 94 Vapotherm 30.00 6.00 11/05/17 21:14 97 Vapotherm 6.00 30 11/05/17 21:00 88 29 127/73 (91) 97 Vapotherm 30.00 6.00 11/05/17 20:00 Vapotherm 6.00 30 11/05/17 20:00 91 32 130/77 (94) 97 Vapotherm 30.00 6.00 11/05/17 19:00 89 29 119/76 (90) 97 Vapotherm 30.00 6.00 11/05/17 19:00 93 11/05/17 18:00 95 16 137/75 (95) 90 Vapotherm 30.00 6.00 11/05/17 17:00 83 18 128/69 (88) 95 Vapotherm 30.00 6.00 11/05/17 16:33 97.6 11/05/17 16:00 88 20 119/74 (89) 96 Vapotherm 30.00 6.00 11/05/17 16:00 Vapotherm 6.00 30 11/05/17 15:07 Vapotherm 30.00 6.00 11/05/17 15:05 97 Vapotherm 10.00 30 11/05/17 15:00 87 22 107/63 (78) 97 Vapotherm 50.00 10.00 11/05/17 14:00 89 26 112/73 (86) 98 Vapotherm 50.00 10.00 11/05/17 13:00 88 11/05/17 13:00 89 25 104/69 (81) 96 Vapotherm 50.00 10.00 11/05/17 12:00 98.3 Vapotherm 50.00 10.00 11/05/17 12:00 Vapotherm 10.00 50 11/05/17 12:00 92 22 101/64 (76) 95 Vapotherm 50.00 10.00 11/05/17 11:00 93 18 108/60 (76) 90 Vapotherm 50.00 10.00 11/05/17 10:00 95 20 102/68 (79) 96 Vapotherm 50.00 10.00 11/05/17 09:00 89 22 108/65 (79) 93 Vapotherm 50.00 10.00 11/05/17 08:00 81 22 111/63 (79) 93 Vapotherm 50.00 10.00 11/05/17 08:00 Vapotherm 10.00 50 11/05/17 08:00 97.2 Vapotherm 50.00 10.00 I & O 11/06/17 07:00 Intake Total 2040 ml Output Total 3375 ml Balance -1335 ml Capillary Refill : Less Than 3 Seconds General Appearance: No Apparent Distress, WD/WN, Other (Addressed okay) HEENT: Normal ENT Inspection Neck: Normal Inspection Respiratory: No Accessory Muscle Use, No Respiratory Distress, Decreased Breath Sounds Cardiovascular: Regular Rate, Rhythm Gastrointestinal: non tender, soft Results Lab Laboratory Tests 11/06/17 03:10: White Blood Count 6.8, Red Blood Count 3.98L, Hemoglobin 12.5, Hematocrit 36, Mean Corpuscular Volume 91, Mean Corpuscular Hemoglobin 31, Mean Corpuscular Hemoglobin Concent 35, Red Cell Distribution Width 13.0, Platelet Count 216, Mean Platelet Volume 10.4, Neutrophils (%) (Auto) 87H, Lymphocytes (%) (Auto) 7L , Monocytes (%) (Auto) 6, Eosinophils (%) (Auto) 0, Basophils (%) (Auto) 0, Neutrophils # (Auto) 5.9, Lymphocytes # (Auto) 0.5L, Monocytes # (Auto) 0.4, Eosinophils # (Auto) 0.0, Basophils # (Auto) 0.0, Sodium Level 134L, Potassium Level 3.7, Chloride Level 99, Carbon Dioxide Level 25, Anion Gap 10, Blood Urea Nitrogen 18, Creatinine 0.62, Estimat Glomerular Filtration Rate > 60, BUN/ Creatinine Ratio 29, Glucose Level 284H, Calcium Level 8.3L, Phosphorus Level 2.8, Magnesium Level 2.0 Microbiology 11/04/17 Mycobacterial Culture - Preliminary, Resulted Assessment/Plan Assessment/Plan Assess & Plan/Chief Complaint Short of breath. Acute and chronic respiratory failure. Diastolic congestive heart failure Coronary artery disease. Recent myocardial infarction. Debility. Hypoxia. Chronic eosinophil pneumonia. Hyponatremia. . 11/04/17. Patient had bronchoscopy this morning. Shortness of breath better. Acute and chronic respiratory failure. Diastolic congestive heart failure. Coronary artery disease. Recent myocardial infarction. Debility. Hyponatremia. Patient feeling better this morning. . 11/05/17. Patient feeling better this morning. Short of breath. Acute and chronic respiratory failure. Hyponatremia resolved. Diastolic congestive heart failure. Coronary artery disease. Recent myocardial infarction. Debility. Sputum staph aureus and Malena.. . 11/06/17. Patient had 2 episodes last night of desaturation. Patient gets short of breath when picking up a couple of water very Bronchial lavage shows staph aureus and Malena Clinical Quality Measures DVT/VTE Risk/Contraindication: Risk Factor Score Per Nursin RFS Level Per Nursing on Admit: 2=Moderate ABRAM BRITT DO Nov 06, 2017 07:36
--- NOTE | 2017-11-06 08:03 | Diagnostic Imaging Report ---
INDICATION: Congestive heart failure, hypoxia. TECHNIQUE: Single view chest 3:29 AM. CORRELATION STUDY: 11/22/2017 FINDINGS: Heart size and mediastinum are enlarged. Vascular perhaps slightly increased from prior study. Scattered areas of airspace disease infiltrate versus edema both lung nguyen most noticeable at the right upper lobe and left mid and lower lung field. IMPRESSION: 1. Cardiac enlargement with vascular congestion. Scattered areas of airspace disease versus infiltrate persisting. Dictated by: Dictated on workstation # [id number]
[2017-11-06] MEDS: LACTULOSE SYRUP 10GM/15ML (ENULOSE) 30ML UDC PO SCH ×2 (08:09→21:41)
[2017-11-06] MEDS: ENOXAPARIN 40 MG/0.4 ML (LOVENOX) SYR SC SCH (08:09)
[2017-11-06] MEDS: CLOPIDOGREL 75 MG (PLAVIX) TABLET PO SCH (08:10)
[2017-11-06] MEDS: BENZONATATE 100 MG (TESSALON) CAPSULE PO SCH ×3 (08:10→21:41)
[2017-11-06] MEDS: VENlafaxine 37.5 MG (EFFEXOR) TAB PO SCH (08:10)
[2017-11-06] MEDS: LORATADINE (CLARITIN) 10 MG TAB PO SCH (08:10)
[2017-11-06] MEDS: ASPIRIN 81 MG CHEW (CHILDREN'S ASA) PO SCH (08:10)
[2017-11-06] MEDS: DOCUSATE SODIUM 100 MG (COLACE) CAP PO SCH ×2 (08:10→21:41)
[2017-11-06] MEDS: RT-ADVAIR HFA 115/21 MCG PER PUFF IH SCH ×2 (09:08→21:35)
--- NOTE | 2017-11-06 09:14 | Occupational Ther Daily Note ---
OT Current Status-Daily Note Subjective Pt seen in room, up in bed, agreeable to OT. No pain mentioned. Appearance Alert, cooperative Mental Status/Objective Functional [place] Measure 0=Not Assessed/NA 4=Minimal Assistance 1=Total Assistance 5=Supervision or Setup 2=Maximal Assistance 6=Modified [place] 3=Moderate Assistance 7=Complete [place] Other Treatment Vapotherm decreased to 30%. Pt did 15-18 reps 5 different bilat UE exercises with red theraband (increased repetitions). O2 sats remained above 90% but heart rate increased after each exercise to about 105. She took recovery periods between each group of exercises until HR decreased to about 85. Pt educ on pacing herself and not letting her "energy tank" get down to "empty." Pt verbalized understanding and agreement. Pt left up in bed, all needs met. Education OT Patient Education: Energy conservation, Exercise program Teaching Recipient: Patient Teaching Methods: Discussion Response to Teaching: Verbalize Understanding, Return Demonstration OT Short Term Goals Short Term Goals 1=Demonstrate adherence to instructed precautions during ADL tasks. 2=Patient will verbalize/demonstrate understanding of assistive devices/ modifications for ADL. 3=Patient will improve strength/tolerance for activity to enable patient to perform ADL's. OT Fdc Goals Fdc Goals Time Frame: Nov 17, 2017 Eating (FIM): 6 Grooming(FIM): 6 Bathing(FIM): 5 Upper Body Dressing(FIM): 6 Lower Body Dressing(FIM): 5 Toileting(FIM): 6 Transfers (B,C,W/C) (FIM): 6 Toilet/Commode Transfer(FIM): 6 Shower Transfer(FIM): 5 Additional Goals: 1-Demonstrate ADL Tasks, 2-Verbalize Understanding, 3- ImproveStrength/Herb 1=Demonstrate adherence to instructed precautions during ADL tasks. 2=Patient will verbalize/demonstrate understanding of assistive devices/ modifications for ADL. 3=Patient will improve strength/tolerance for activity to enable patient to perform ADL's. OT Education/Plan Discharge Recommendations Plan/Recommendations: Continue POC Treatment Plan/Plan of Care Patient would benefit from OT for education, treatment and training to promote independence in ADL's, mobility, safety and/or upper extremity function for ADL' s. Plan of Care: ADL Retraining, Functional Mobility, UE Funct Exercise/Act Treatment Duration: Nov 17, 2017 Frequency: 5 times per week Estimated Hrs Per Day: .25 hour per day Agreement: Yes Rehab Potential: Good Time/GCodes Start Time: 08:45 Stop Time: 09:05 Total Time Billed (hr/min): 20 Billed Treatment Time visit, 20 minutes exercise FER MOSS OT Nov 06, 2017 09:14
--- NOTE | 2017-11-06 10:27 | Physical Therapy Progress Note ---
Therapy Progress Note Patient has declined PT x 2 this a.m. due to fatigue. PT will attempt in p.m. 1 ref x 2 (603 and 1023) SOFIE SIMMONS PT Nov 06, 2017 10:27
--- NOTE | 2017-11-06 11:37 | Physical Therapy Progress Note ---
Therapy Progress Note Patient declined PT x 3 due to fatigue. Patient is educated on importance of mobility and OOB activity to improve pulmonary function and strength. Patient declined. Will attempt in a.m. 1 ref SOFIE SIMMONS PT Nov 06, 2017 11:37
--- NOTE | 2017-11-06 14:01 | Cardiology Progress Note ---
Subjective Date Seen by Provider: Nov 06, 2017 Time Seen by Provider: 13:58 Subjective/Events-last exam Patient is laying down in bed, feeling better, had 2 episodes of hypoxemia and shortness of breath last night, started to improve after aggressive diuresis. Review of Systems General: No Chills, No Night Sweats, No Fatigue, No Malaise, No Appetite, No Other HEENT: No Head Aches, No Visual Changes, No Eye Pain, No Ear Pain, No Dysphasia , No Sinus Congestion, No Post Nasal Drip, No Sore Throat, No Other Pulmonary: Dyspnea; No Cough, No Pleuritic Chest Pain, No Other Cardiovascular: No: Chest Pain, Palpitations, Orthopnea, Paroxysmal Noc. Dyspnea, Edema, Lt Headedness, Other Objective-Cardiology Exam Last Set of Vital Signs Vital Signs 11/06/17 11/06/17 11/06/17 11/06/17 09:08 10:00 12:00 13:00 Temp 98.0 Pulse 90 Resp 27 B/P (MAP) 131/70 (90) Pulse Ox 90 O2 Delivery Vapotherm O2 Flow Rate 30.00 5.00 FiO2 30 Capillary Refill : Less Than 3 Seconds I&O Intake and Output 11/06/17 00:00 Intake Total 940 ml Output Total 2645 ml Balance -1705 ml Intake Oral 940 ml Output Urine Total 2645 ml General: Alert, Oriented X3, Cooperative HEENT: Atraumatic, PERRLA Neck: Supple, No JVD, No Thyromegaly Lungs: Normal Air Movement, Other (bilateral rhonchi) Heart: Regular Rate, Normal S1, Normal S2, No Murmurs Abdomen: Normal Bowel Sounds, Soft, No Tenderness, No Hepatosplenomegaly, No Masses Extremities: No Clubbing, No Cyanosis, No Edema, Normal Pulses, No Tenderness/ Swelling Skin: No Rashes, No Breakdown, No Significant Lesion Neuro: Normal Gait, Normal Speech, Strength at 5/5 X4 Ext, Normal Tone, Sensation Intact Psych/Mental Status: Mental Status NL, Mood NL Results Lab Laboratory Tests 11/06/17 03:10 A/P-Cardiology Admission Diagnosis Shortness of breath Coronary artery disease Interstitial lung disease Hypertension Assessment/Plan Shortness of breath, acute on chronic respiratory failure, having worsening dyspnea, responded to diuretics, had left ventricular diastolic dysfunction, had cardiac catheterization done in July 2017 after having myocardial infarction) ventricular infarct. Currently feeling better, responded to diuresis. Continue to monitor Interstitial lung disease. Bibasilar pulmonary infiltrates during hosp of July and August 2017: CHF vs atelectasis vs pneumonia; unchanged on CT of 08/25/17. 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 Last CT chest of 10/09/17 showed some improvement of ground glass infiltrates and no new abnormality, responded to diuretics this morning. Continue to monitor Coronary artery disease, status post cardiac catheterization done by Dr. 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 There is no significant residual stenosis in the right coronary artery and the flow was normal, but right ventricular branch was lost during the procedure due to infarct-related thrombus. A 90% to 95% stenosis of the proximal left circumflex artery, which was treated with stenting with Alpine Xience 2.25 x 12 mm stent with reduction of stenosis to 0% residual. 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, continue to monitor Relative hypotension, improved after d/c bb and BRETT-inhibitor Echo of 11/01/17: LVEF 50-55%, grade I rouse dysfunction, no significant pericard eff or valvular heart disease, PASP 25-30 mmHg Well preserved global left ventricular systolic function with ejection fraction 60%, postero-basal hypokinesis, no significant mitral regurgitation and mild elevation of left ventricular end-diastolic pressure on LHC of 08/04/17 TSH 0.26 on lab of 08-05-17 - suggestive of hyperthyroidism Clinical Quality Measures DVT/VTE Risk/Contraindication: Risk Factor Score Per Nursin RFS Level Per Nursing on Admit: 2=Moderate SERGEI CHUN MD Nov 06, 2017 14:01
[2017-11-06] MEDS: NYSTATIN ORAL SUSP 5 ML UDC PO SCH (17:43)
[2017-11-06] MEDS ORDERED: CALCIUM CITRATE PO SCH (21:00)
[2017-11-06] MEDS ORDERED: VITAMIN D3 PO SCH (21:00)
[2017-11-06] MEDS ORDERED: [UNRECOGNIZED DRUG - OTHER] PO SCH (21:00)
[2017-11-06] MEDS: CALCIUM CARB + VIT D 600 MG (CALCARB + D) TAB PO SCH (21:40)
[2017-11-06] MEDS: ATORVASTATIN 80 MG (LIPITOR) TABLET PO SCH (21:41)
[2017-11-07] VITALS (14 sets, daily range): BP systolic 96–129; BP diastolic 56–82
[2017-11-07] MEDS: NYSTATIN ORAL SUSP 5 ML UDC PO SCH ×4 (02:20→17:28)
[2017-11-07] MEDS: RT-ALBUTEROL/IPRATROPIUM 3 ML (DUONEB) VIAL INH SCH ×3 (02:41→18:52)
[2017-11-07 04:48] LABS: BASOPHILS % (AUTO) 0 % (0-10); EOSINOPHILS % (AUTO) 0 % (0-10); HEMATOCRIT 37 % (35-52); HEMOGLOBIN 12.5 G/DL (11.5-16.0); LYMPHOCYTES # (AUTO) 0.4 X 10^3 (1.0-4.0); LYMPHOCYTES % (AUTO) 5 % (12-44); MEAN CORPUSCULAR HEMOGLOBIN 31 PG (25-34); MEAN CORPUSCULAR HGB CONC 34 G/DL (32-36); MEAN CORPUSCULAR VOLUME 91 FL (80-99); MEAN PLATELET VOLUME 10.2 FL (7.4-10.4); MONOCYTES # (AUTO) 0.6 X 10^3 (0.0-1.0); MONOCYTES % (AUTO) 6 % (0-12); NEUTROPHILS # (AUTO) 8.7 X 10^3 (1.8-7.8); NEUTROPHILS % (AUTO) 89 % (42-75); PLATELET COUNT 222 10^3/uL (130-400); RED BLOOD COUNT 4.04 10^6/uL (4.35-5.85); RED CELL DISTRIBUTION WIDTH 13.3 % (10.0-14.5); WHITE BLOOD COUNT 9.7 10^3/uL (4.3-11.0)
[2017-11-07 05:09] LABS: BUN/CREATININE RATIO 28; CALCIUM 8.4 MG/DL (8.5-10.1); CARBON DIOXIDE 27 MMOL/L (21-32); CHLORIDE 97 MMOL/L (98-107); CREATININE SERUM 0.64 MG/DL (0.60-1.30); GFR ESTIMATED > 60; GLUCOSE 251 MG/DL (70-105); MAGNESIUM 2.3 MG/DL (1.8-2.4); PHOSPHORUS 4.3 MG/DL (2.3-4.7); POTASSIUM 3.7 MMOL/L (3.6-5.0); SODIUM 133 MMOL/L (135-145)
--- NOTE | 2017-11-07 05:47 | Pulmonary Progress Note ---
Subjective Time Seen by Provider: 05:46 Subjective/Events-last exam Pt appears to be doing slightly better. Exam Exam Vital Signs Date Time Temp Pulse Resp B/P (MAP) Pulse Ox O2 Delivery O2 Flow Rate FiO2 11/07/17 04:00 78 20 115/67 (83) 100 Nasal Cannula 3.00 11/07/17 04:00 Nasal Cannula 3.00 11/07/17 03:00 79 15 101/62 (75) 100 Nasal Cannula 3.00 11/07/17 02:41 99 High Flow N/C 3.00 11/07/17 02:00 93 12 111/69 (83) 98 Nasal Cannula 3.00 11/07/17 01:00 77 22 96/65 (75) 100 Nasal Cannula 3.00 11/07/17 01:00 79 11/07/17 00:00 Nasal Cannula 3.00 11/07/17 00:00 75 21 96/56 (69) 95 Nasal Cannula 3.00 11/06/17 23:00 76 12 92/58 (69) 100 Nasal Cannula 3.00 11/06/17 22:00 88 23 99/66 (77) 98 Nasal Cannula 3.00 11/06/17 21:30 98 High Flow N/C 3.00 11/06/17 21:00 80 16 102/63 (76) 99 Nasal Cannula 3.00 11/06/17 20:00 Nasal Cannula 3.00 11/06/17 19:51 98.8 92 18 115/72 (86) 10 Nasal Cannula 3.00 11/06/17 19:00 92 27 115/72 (86) 100 Nasal Cannula 3.00 11/06/17 19:00 88 11/06/17 18:30 Nasal Cannula 3.00 11/06/17 18:00 88 44 125/81 (96) 99 Nasal Cannula 3.00 11/06/17 17:00 103 31 127/75 (92) 99 Nasal Cannula 3.00 11/06/17 16:00 98.0 Nasal Cannula 3.00 11/06/17 16:00 Vapotherm 5.00 30 11/06/17 16:00 87 32 121/73 (89) 100 Nasal Cannula 3.00 11/06/17 15:38 96 Vapotherm 5.00 30 11/06/17 15:00 82 30 121/80 (94) 97 Vapotherm 30.00 5.00 11/06/17 14:00 92 29 104/67 (79) 96 Vapotherm 30.00 5.00 11/06/17 13:00 99 11/06/17 13:00 90 27 131/70 (90) 90 30.00 5.00 11/06/17 12:00 Vapotherm 5.00 30 11/06/17 12:00 98.0 86 24 122/83 (96) 99 30.00 5.00 11/06/17 11:00 88 22 114/66 (82) 96 30.00 5.00 11/06/17 10:00 89 20 104/66 (79) 98 Vapotherm 30.00 6.00 11/06/17 09:08 95 Vapotherm 6.00 30 11/06/17 09:00 90 33 119/67 (84) 95 Vapotherm 30.00 6.00 11/06/17 08:00 Vapotherm 6.00 30 11/06/17 08:00 97.5 87 25 91/55 (67) 90 Vapotherm 30.00 6.00 11/06/17 07:37 77 11/06/17 07:00 90 35 117/69 (85) 90 Vapotherm 30.00 6.00 11/06/17 06:00 107 25 121/90 (100) 95 Vapotherm 30.00 6.00 I & O 11/07/17 07:00 Intake Total 1390 ml Output Total 2250 ml Balance -860 ml General Appearance: No Apparent Distress, WD/WN, Other (Addressed okay) HEENT: Normal ENT Inspection Neck: Normal Inspection Respiratory: No Accessory Muscle Use, No Respiratory Distress, Crackles, Decreased Breath Sounds Cardiovascular: Regular Rate, Rhythm Capillary Refill: Less Than 3 Seconds Gastrointestinal: non tender, soft Extremity: Normal Capillary Refill, Normal Inspection, Normal Range of Motion, Non Tender, No Calf Tenderness, No Pedal Edema Neurologic/Psychiatric: Alert, Oriented x3, No Motor/Sensory Deficits, Normal Mood/Affect Skin: Normal Color, Warm/Dry Lymphatic: No Adenopathy Results Lab Laboratory Tests 11/06/17 03:10 11/07/17 04:35 Assessment/Plan Assessment/Plan Acute on chronic respiratory failure -pt desaturates quickly with exertion -Hep lock IVF -Continue Lasix -SVNs ILD-- Pt has heavy black mold in her house. -CT scan reviewed and shows ILD with traction bronchiectasis -s/p bronchoscopy -- BAL shows MSSA and candidiasis - Ancef and Eraxis -Pt's is planning on getting black mold cleaned up - I recommend professional ditch cleaner for mold removal --Solumedrol decrease to 40 IV Q12 CHFAE - hx of diastolic CHF EF 60% -continue lasix CAD with recent MA debility/weakness -PT/OT 233 Critical Care: Critically Ill Patient JUANA WILLS DO Nov 07, 2017 05:47
[2017-11-07] MEDS ORDERED: KCL 20 MEQ TAB (K-DUR) PO ONE (06:37)
[2017-11-07] MEDS: LEVOTHYROXINE 75 MCG (LEVOTHROID) TABLET PO SCH (06:54)
[2017-11-07] MEDS: KCL 20 MEQ TAB (K-DUR) PO SCH (06:54)
[2017-11-07] MEDS: ceFAZolin INJECTION 1,000 MG in NS (IVPB) 50 ML IV SCH ×3 (06:54→21:43)
[2017-11-07] MEDS: PANTOPRAZOLE 40 MG (PROTONIX) TAB PO SCH (06:54)
--- NOTE | 2017-11-07 07:43 | Diagnostic Imaging Report ---
INDICATION: Hypoxemia Portable chest 3:50 AM Heart is mildly enlarged. There is diffuse interstitial prominence in the lungs, unchanged from the previous day. IMPRESSION: Stable chest with diffuse interstitial infiltrate. Dictated by: Dictated on workstation # [id number]
--- NOTE | 2017-11-07 08:01 | Progress Note (SOAP) ---
Subjective Time Seen by Provider: 08:00 Subjective/Events-last exam Patient doing a little better today. Patient able to eat without getting short of breath. 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 Patient to be transferred down to medical floor Objective Exam Vital Signs Date Time Temp Pulse Resp B/P (MAP) Pulse Ox O2 Delivery O2 Flow Rate FiO2 11/07/17 06:00 68 18 104/63 (77) 100 Nasal Cannula 3.00 11/07/17 05:00 73 17 102/64 (77) 100 Nasal Cannula 3.00 11/07/17 04:00 78 20 115/67 (83) 100 Nasal Cannula 3.00 11/07/17 04:00 Nasal Cannula 3.00 11/07/17 03:00 79 15 101/62 (75) 100 Nasal Cannula 3.00 11/07/17 02:41 99 High Flow N/C 3.00 11/07/17 02:00 93 12 111/69 (83) 98 Nasal Cannula 3.00 11/07/17 01:00 77 22 96/65 (75) 100 Nasal Cannula 3.00 11/07/17 01:00 79 11/07/17 00:00 Nasal Cannula 3.00 11/07/17 00:00 75 21 96/56 (69) 95 Nasal Cannula 3.00 11/06/17 23:00 76 12 92/58 (69) 100 Nasal Cannula 3.00 11/06/17 22:00 88 23 99/66 (77) 98 Nasal Cannula 3.00 11/06/17 21:30 98 High Flow N/C 3.00 11/06/17 21:00 80 16 102/63 (76) 99 Nasal Cannula 3.00 11/06/17 20:00 Nasal Cannula 3.00 11/06/17 19:51 98.8 92 18 115/72 (86) 10 Nasal Cannula 3.00 11/06/17 19:00 92 27 115/72 (86) 100 Nasal Cannula 3.00 11/06/17 19:00 88 11/06/17 18:30 Nasal Cannula 3.00 11/06/17 18:00 88 44 125/81 (96) 99 Nasal Cannula 3.00 11/06/17 17:00 103 31 127/75 (92) 99 Nasal Cannula 3.00 11/06/17 16:00 98.0 Nasal Cannula 3.00 11/06/17 16:00 Vapotherm 5.00 30 11/06/17 16:00 87 32 121/73 (89) 100 Nasal Cannula 3.00 11/06/17 15:38 96 Vapotherm 5.00 30 11/06/17 15:00 82 30 121/80 (94) 97 Vapotherm 30.00 5.00 11/06/17 14:00 92 29 104/67 (79) 96 Vapotherm 30.00 5.00 11/06/17 13:00 99 11/06/17 13:00 90 27 131/70 (90) 90 30.00 5.00 11/06/17 12:00 Vapotherm 5.00 30 11/06/17 12:00 98.0 86 24 122/83 (96) 99 30.00 5.00 11/06/17 11:00 88 22 114/66 (82) 96 30.00 5.00 11/06/17 10:00 89 20 104/66 (79) 98 Vapotherm 30.00 6.00 11/06/17 09:08 95 Vapotherm 6.00 30 11/06/17 09:00 90 33 119/67 (84) 95 Vapotherm 30.00 6.00 11/06/17 08:00 Vapotherm 6.00 30 11/06/17 08:00 97.5 87 25 91/55 (67) 90 Vapotherm 30.00 6.00 I & O 11/07/17 07:00 Intake Total 1590 ml Output Total 2350 ml Balance -760 ml Capillary Refill : Less Than 3 Seconds General Appearance: No Apparent Distress, WD/WN HEENT: Normal ENT Inspection Neck: Full Range of Motion Respiratory: No Accessory Muscle Use, No Respiratory Distress Cardiovascular: Regular Rate, Rhythm Gastrointestinal: non tender, soft Results Lab Laboratory Tests 11/07/17 04:35 Laboratory Tests 11/06/17 09:10: B-Type Natriuretic Peptide 392.2H 11/07/17 04:35: White Blood Count 9.7, Red Blood Count 4.04L, Hemoglobin 12.5, Hematocrit 37, Mean Corpuscular Volume 91, Mean Corpuscular Hemoglobin 31, Mean Corpuscular Hemoglobin Concent 34, Red Cell Distribution Width 13.3, Platelet Count 222, Mean Platelet Volume 10.2, Neutrophils (%) (Auto) 89H, Lymphocytes (%) (Auto) 5L , Monocytes (%) (Auto) 6, Eosinophils (%) (Auto) 0, Basophils (%) (Auto) 0, Neutrophils # (Auto) 8.7H, Lymphocytes # (Auto) 0.4L, Monocytes # (Auto) 0.6, Eosinophils # (Auto) 0.0, Basophils # (Auto) 0.0, Sodium Level 133L, Potassium Level 3.7, Chloride Level 97L, Carbon Dioxide Level 27, Anion Gap 9, Blood Urea Nitrogen 18, Creatinine 0.64, Estimat Glomerular Filtration Rate > 60, BUN/ Creatinine Ratio 28, Glucose Level 251H, Calcium Level 8.4L, Phosphorus Level 4.3, Magnesium Level 2.3 Microbiology 11/04/17 Mycobacterial Culture - Preliminary, Resulted Assessment/Plan Assessment/Plan Assess & Plan/Chief Complaint Short of breath. Acute and chronic respiratory failure. Diastolic congestive heart failure Coronary artery disease. Recent myocardial infarction. Debility. Hypoxia. Chronic eosinophil pneumonia. Hyponatremia. . 11/04/17. Patient had bronchoscopy this morning. Shortness of breath better. Acute and chronic respiratory failure. Diastolic congestive heart failure. Coronary artery disease. Recent myocardial infarction. Debility. Hyponatremia. Patient feeling better this morning. . 11/05/17. Patient feeling better this morning. Short of breath. Acute and chronic respiratory failure. Hyponatremia resolved. Diastolic congestive heart failure. Coronary artery disease. Recent myocardial infarction. Debility. Sputum staph aureus and Malena.. . 11/06/17. Patient had 2 episodes last night of desaturation. Patient gets short of breath when picking up a couple of water very Bronchial lavage shows staph aureus and Malena. . 11/07/17. Malena of tongue. Nystatin has helped according to patient. Recent VT. Debility. Patient feels she's doing a little better today. 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 Chronic respiratory failure. Diastolic congestive heart failure. Coronary artery disease. Hypoxia. Hyponatremia Clinical Quality Measures DVT/VTE Risk/Contraindication: Risk Factor Score Per Nursin RFS Level Per Nursing on Admit: 2=Moderate ABRAM BRITT DO Nov 07, 2017 08:00
[2017-11-07] MEDS: methylPREDNISolone 40 MG/ML (Solu-MEDROL) VIAL IV SCH ×2 (08:23→20:18)
[2017-11-07] MEDS: DOCUSATE SODIUM 100 MG (COLACE) CAP PO SCH ×2 (08:24→20:18)
[2017-11-07] MEDS: LACTULOSE SYRUP 10GM/15ML (ENULOSE) 30ML UDC PO SCH ×2 (08:24→20:18)
[2017-11-07] MEDS: BENZONATATE 100 MG (TESSALON) CAPSULE PO SCH ×3 (08:24→20:17)
[2017-11-07] MEDS: LORATADINE (CLARITIN) 10 MG TAB PO SCH (08:24)
[2017-11-07] MEDS: ASPIRIN 81 MG CHEW (CHILDREN'S ASA) PO SCH (08:24)
[2017-11-07] MEDS: CLOPIDOGREL 75 MG (PLAVIX) TABLET PO SCH (08:24)
[2017-11-07] MEDS: VENlafaxine 37.5 MG (EFFEXOR) TAB PO SCH (08:24)
[2017-11-07] MEDS: ENOXAPARIN 40 MG/0.4 ML (LOVENOX) SYR SC SCH (08:25)
[2017-11-07] MEDS: FUROSEMIDE 40 MG/4 ML INJ (LASIX) IVP SCH (08:35)
--- NOTE | 2017-11-07 08:36 | Cardiology Progress Note ---
Subjective Date Seen by Provider: Nov 07, 2017 Time Seen by Provider: 08:33 Subjective/Events-last exam Patient is in bed, still having dyspnea on exertion, using oxygen, reporting some improvement today. No chest pain. Review of Systems General: No Chills, No Night Sweats; Fatigue; No Malaise, No Appetite, No Other HEENT: No Head Aches, No Visual Changes, No Eye Pain, No Ear Pain, No Dysphasia , No Sinus Congestion, No Post Nasal Drip, No Sore Throat, No Other Pulmonary: Dyspnea; No Cough, No Pleuritic Chest Pain, No Other Cardiovascular: No: Chest Pain, Palpitations, Orthopnea, Paroxysmal Noc. Dyspnea, Edema, Lt Headedness, Other Objective-Cardiology Exam Last Set of Vital Signs Vital Signs 11/06/17 11/06/17 11/07/17 16:00 19:51 06:00 Temp 98.8 Pulse 68 Resp 18 B/P (MAP) 104/63 (77) Pulse Ox 100 O2 Delivery Nasal Cannula O2 Flow Rate 3.00 FiO2 30 Capillary Refill : Less Than 3 Seconds I&O Intake and Output 11/07/17 00:00 Intake Total 2640 ml Output Total 3400 ml Balance -760 ml Intake Oral 1290 ml IV Total 1350 ml Output Urine Total 3400 ml General: Alert, Oriented X3, Cooperative HEENT: Atraumatic, PERRLA Neck: Supple, No JVD, No Thyromegaly Lungs: Normal Air Movement, Other (bilateral rhonchi) Heart: Regular Rate, Normal S1, Normal S2, No Murmurs Abdomen: Normal Bowel Sounds, Soft, No Tenderness, No Hepatosplenomegaly, No Masses Extremities: No Clubbing, No Cyanosis, No Edema, Normal Pulses, No Tenderness/ Swelling Skin: No Rashes, No Breakdown, No Significant Lesion Neuro: Normal Gait, Normal Speech, Strength at 5/5 X4 Ext, Normal Tone, Sensation Intact Psych/Mental Status: Mental Status NL, Mood NL Results Lab Laboratory Tests 11/07/17 04:35 A/P-Cardiology Admission Diagnosis Shortness of breath Coronary artery disease Interstitial lung disease Hypertension Assessment/Plan Shortness of breath, acute on chronic respiratory failure, had left ventricular diastolic dysfunction, had cardiac catheterization done in July 2017 after having myocardial infarction) ventricular infarct. Currently feeling better, responded to diuresis. Continue to monitor Interstitial lung disease. Bibasilar pulmonary infiltrates during hosp of July and August 2017: CHF vs atelectasis vs pneumonia; unchanged on CT of 08/25/17. 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 Last CT chest of 10/09/17 showed some improvement of ground glass infiltrates and no new abnormality, continue on Lasix and monitor electrolytes. Coronary artery disease, status post cardiac catheterization done by Dr. Schumacher on 08/04/17 (for ac [place] and RV infarct): Mid vessel occlusion of the right coronary artery treated with overlapping stents (Alpine Xience 2.75 x 28 mm the distal part of which extends slightly into the right ventricular branch) and Alpine Xience 2.75 x 12 mm stent that was placed through the expanded struts of the previous stent and overlaps the previous stent to some degree. There is no significant residual stenosis in the right coronary artery and the flow was normal, but right ventricular branch was lost during the procedure due to infarct-related thrombus. A 90% to 95% stenosis of the proximal left circumflex artery, which was treated with stenting with Alpine Xience 2.25 x 12 mm stent with reduction of stenosis to 0% residual. The left anterior descending artery has diffuse yvfn-ly-piywjuwn disease, continue to monitor Relative hypotension, improved after d/c bb and BRETT-inhibitor Echo of 11/01/17: LVEF 50-55%, grade I diastolic dysfunction, no significant pericard eff or valvular heart disease, PASP 25-30 mmHg Well preserved global left ventricular systolic function with ejection fraction 60%, postero-basal hypokinesis, no significant mitral regurgitation and mild elevation of left ventricular end-diastolic pressure on LHC of 08/04/17 TSH 0.26 on lab of 08-05-17 - suggestive of hyperthyroidism Clinical Quality Measures DVT/VTE Risk/Contraindication: Risk Factor Score Per Nursin RFS Level Per Nursing on Admit: 2=Moderate SERGEI CHUN MD Nov 07, 2017 08:36
[2017-11-07] MEDS: RT-ADVAIR HFA 115/21 MCG PER PUFF IH SCH ×2 (09:29→18:52)
[2017-11-07] MEDS: ANIDULAFUNGIN IV SCH (09:37)
[2017-11-07] MEDS: D5W IV SCH (09:37)
--- NOTE | 2017-11-07 10:24 | Physical Therapy Daily Note ---
PT Daily Note-Current Subjective Patient in bed pre tx, agrees to PT, no complaints of pain. Appearance Patient in recliner post tx with nurse call, phone, tray, all needs met. Mental Status Patient Orientation: Normal For Age Attachments: Oxygen Transfers Functional Hand Measure 0=Not Assessed/NA 4=Minimal Assistance 1=Total Assistance 5=Supervision or Setup 2=Maximal Assistance 6=Modified Hand 3=Moderate Assistance 7=Complete IndependenceIRFPAI Quality Coding Scale 6 Independent with activity with or without an assistive device 5 Patient requires set up or clean up by helper. Patient completes activity by themselves 4 Supervision or touching assist (CGA). Dixie provide cues , steadying assist 3 The helper provides less than half the effort to complete the activity 2 The helper provides more than half the effort to complete the activity 1 Dependent. The helper does all the effort to complete an activity 7 Patient refused to complete or attempt activity 9 The patient did not perform the activity before the current illness or injury 88 Not attempted due to Medical conditions or safety concerns Transfers (B, C, W/C) (FIM): 5 Scootin Rollin Supine to/from Sit: 5 Sit to/from Stand: 5 Bed to/from Chair: 5 Weight Bearing Right Lower Extremity: Right Full Weight Bearing Left Lower Extremity: Left Full Weight Bearing Gait Training Gait (FIM): 2 Distance: 70' Gait Level of Assist: 4 Gait Persons Needed: 1 Gait Assistive Device: FWW CGA, cues for purse lip breathing Exercises Seated Therapy Exercises: Ankle pumps, Long arc quads Seated Reps: 15 Treatments bed mobility and transfers, ambulation, functional strengthening Assessment Current Status: Fair Progress patient gets very SOB, needs cues for purse lip breathing, lots of rest breaks PT Plan Problem List Problem List: Activity Tolerance, Functional Strength, Safety, Balance, Gait, Transfer Treatment/Plan Treatment Plan: Continue Plan of Care Treatment Plan: Education, Functional Activity Herb, Functional Strength, Gait , Safety, Therapeutic Exercise, Transfers Treatment Duration: Nov 21, 2017 Frequency: 6 times per week Estimated Hrs Per Day: .5 hour per day Patient and/or Family Agrees t: Yes Safety Risks/Education Patient Education: Gait Training, Transfer Techniques, Correct Positioning, Safety Issues Teaching Recipient: Patient Teaching Methods: Demonstration, Discussion Response to Teaching: Reinforcement Needed Time/GCodes Time In: 1000 Time Out: 1015 Total Billed Treatment Time: 15 Total Billed Treatment 1 visit GT 15' ROHIT TAYLOR PT Nov 07, 2017 10:24
[2017-11-07] MEDS ORDERED: PREPARATION H OINTMENT 57 GR TUBE PR PRN (11:00)
--- NOTE | 2017-11-07 14:50 | Occupational Ther Daily Note ---
OT Current Status-Daily Note Subjective Pt seen in room, up in recliner, agreeable to OT. No pain mentioned. Appearance Alert, cooperative Mental Status/Objective Functional [place] Measure 0=Not Assessed/NA 4=Minimal Assistance 1=Total Assistance 5=Supervision or Setup 2=Maximal Assistance 6=Modified [place] 3=Moderate Assistance 7=Complete [place] Other Treatment Pt is now on 3L O2 nc and in regular room. She did 10 reps 5 different bila UE exercises using red theraband, taking recovery breaks between each exercise group to slow breathing and heart rate. Decreased reps due to decreased supplemental oxygen. Pt encouraged to do exercises on her own - she said she did them at home. pt left up in recliner, all needs met. Education OT Patient Education: Exercise program, Progress toward Goal/Update tx plan, Purpose of tx/functional activities Teaching Recipient: Patient, Family Teaching Methods: Discussion Response to Teaching: Verbalize Understanding, Return Demonstration OT Short Term Goals Short Term Goals 1=Demonstrate adherence to instructed precautions during ADL tasks. 2=Patient will verbalize/demonstrate understanding of assistive devices/ modifications for ADL. 3=Patient will improve strength/tolerance for activity to enable patient to perform ADL's. OT Contract Manager Goals Contract Manager Goals Time Frame: Nov 17, 2017 Eating (FIM): 6 Grooming(FIM): 6 Bathing(FIM): 5 Upper Body Dressing(FIM): 6 Lower Body Dressing(FIM): 5 Toileting(FIM): 6 Transfers (B,C,W/C) (FIM): 6 Toilet/Commode Transfer(FIM): 6 Shower Transfer(FIM): 5 Additional Goals: 1-Demonstrate ADL Tasks, 2-Verbalize Understanding, 3- ImproveStrength/Herb 1=Demonstrate adherence to instructed precautions during ADL tasks. 2=Patient will verbalize/demonstrate understanding of assistive devices/ modifications for ADL. 3=Patient will improve strength/tolerance for activity to enable patient to perform ADL's. OT Education/Plan Discharge Recommendations Plan/Recommendations: Continue POC Treatment Plan/Plan of Care Patient would benefit from OT for education, treatment and training to promote independence in ADL's, mobility, safety and/or upper extremity function for ADL' s. Plan of Care: ADL Retraining, Functional Mobility, UE Funct Exercise/Act Treatment Duration: Nov 17, 2017 Frequency: 5 times per week Estimated Hrs Per Day: .25 hour per day Agreement: Yes Rehab Potential: Good Time/GCodes Start Time: 13:50 Stop Time: 14:05 Total Time Billed (hr/min): 15 Billed Treatment Time visit, 15 minutes exercise FER MOSS OT Nov 07, 2017 14:50
[2017-11-07] MEDS: CALCIUM CARB + VIT D 600 MG (CALCARB + D) TAB PO SCH (20:17)
[2017-11-07] MEDS: ATORVASTATIN 80 MG (LIPITOR) TABLET PO SCH (20:17)
[2017-11-08] VITALS: BP 125/71
[2017-11-08] MEDS: NYSTATIN ORAL SUSP 5 ML UDC PO SCH ×4 (00:27→18:02)
[2017-11-08 04:00] VITALS: BP 143/81
[2017-11-08 04:50] LABS: BASOPHILS % (AUTO) 0 % (0-10); EOSINOPHILS % (AUTO) 0 % (0-10); HEMATOCRIT 37 % (35-52); HEMOGLOBIN 12.8 G/DL (11.5-16.0); LYMPHOCYTES # (AUTO) 0.6 X 10^3 (1.0-4.0); LYMPHOCYTES % (AUTO) 7 % (12-44); MEAN CORPUSCULAR HEMOGLOBIN 31 PG (25-34); MEAN CORPUSCULAR HGB CONC 34 G/DL (32-36); MEAN CORPUSCULAR VOLUME 91 FL (80-99); MONOCYTES # (AUTO) 0.7 X 10^3 (0.0-1.0); MONOCYTES % (AUTO) 7 % (0-12); NEUTROPHILS # (AUTO) 7.9 X 10^3 (1.8-7.8); NEUTROPHILS % (AUTO) 86 % (42-75); PLATELET COUNT 237 10^3/uL (130-400); RED BLOOD COUNT 4.11 10^6/uL (4.35-5.85); WHITE BLOOD COUNT 9.3 10^3/uL (4.3-11.0)
[2017-11-08 05:05] LABS: BUN/CREATININE RATIO 29; CALCIUM 8.4 MG/DL (8.5-10.1); CARBON DIOXIDE 27 MMOL/L (21-32); CHLORIDE 99 MMOL/L (98-107); CREATININE SERUM 0.59 MG/DL (0.60-1.30); GFR ESTIMATED > 60; GLUCOSE 207 MG/DL (70-105); MAGNESIUM 2.3 MG/DL (1.8-2.4); PHOSPHORUS 3.7 MG/DL (2.3-4.7); POTASSIUM 4.3 MMOL/L (3.6-5.0); SODIUM 135 MMOL/L (135-145)
[2017-11-08] MEDS: KCL 20 MEQ TAB (K-DUR) PO SCH (06:06)
[2017-11-08] MEDS: ceFAZolin INJECTION 1,000 MG in NS (IVPB) 50 ML IV SCH ×3 (06:06→22:05)
[2017-11-08] MEDS: PANTOPRAZOLE 40 MG (PROTONIX) TAB PO SCH (06:06)
[2017-11-08] MEDS: LEVOTHYROXINE 75 MCG (LEVOTHROID) TABLET PO SCH (06:06)
[2017-11-08] MEDS: RT-ALBUTEROL/IPRATROPIUM 3 ML (DUONEB) VIAL INH SCH ×2 (07:03→19:41)
[2017-11-08] MEDS: RT-ADVAIR HFA 115/21 MCG PER PUFF IH SCH ×2 (07:03→19:41)
[2017-11-08 08:00] VITALS: BP 146/63
--- NOTE | 2017-11-08 08:10 | Diagnostic Imaging Report ---
Indication: Dyspnea. Discussion: Single portable upright view of the chest was obtained, comparison 11/07/2017. Elevated right hemidiaphragm is again noted. Borderline cardiomegaly is stable. Bilateral infiltrates are not significantly changed given differences in technique. These are nonspecific though likely represents chronic lung disease. No pleural fluid or pneumothorax. Impression: 1. Stable chest. Dictated by: Dictated on workstation # [id number]
--- NOTE | 2017-11-08 10:12 | Physical Therapy Progress Note ---
Therapy Progress Note Pt up at BR sink (I) performing ADLs. Pt just finished shower and declined PT this AM due to fatigue. Pt agreeable to ambulate with nursing this PM once she has rested. KRYSTAL SANDS DPT Nov 08, 2017 10:12
[2017-11-08] MEDS: methylPREDNISolone 40 MG/ML (Solu-MEDROL) VIAL IV SCH (10:20)
[2017-11-08] MEDS: LACTULOSE SYRUP 10GM/15ML (ENULOSE) 30ML UDC PO SCH ×2 (10:20→20:58)
[2017-11-08] MEDS: VENlafaxine 37.5 MG (EFFEXOR) TAB PO SCH (10:22)
[2017-11-08] MEDS: BENZONATATE 100 MG (TESSALON) CAPSULE PO SCH ×3 (10:22→20:57)
[2017-11-08] MEDS: D5W IV SCH (10:22)
[2017-11-08] MEDS: ANIDULAFUNGIN IV SCH (10:22)
[2017-11-08] MEDS: FUROSEMIDE 40 MG/4 ML INJ (LASIX) IVP SCH (10:22)
[2017-11-08] MEDS: CLOPIDOGREL 75 MG (PLAVIX) TABLET PO SCH (10:23)
[2017-11-08] MEDS: ASPIRIN 81 MG CHEW (CHILDREN'S ASA) PO SCH (10:23)
[2017-11-08] MEDS: DOCUSATE SODIUM 100 MG (COLACE) CAP PO SCH ×2 (10:23→20:58)
[2017-11-08] MEDS: LORATADINE (CLARITIN) 10 MG TAB PO SCH (10:23)
[2017-11-08] MEDS: ENOXAPARIN 40 MG/0.4 ML (LOVENOX) SYR SC SCH (10:26)
--- NOTE | 2017-11-08 10:54 | Cardiology Progress Note ---
Subjective Date Seen by Provider: Nov 08, 2017 Time Seen by Provider: 10:52 Subjective/Events-last exam Patient is in bed, feeling better, breathing better, no chest pain Review of Systems General: No Chills, No Night Sweats, No Fatigue, No Malaise, No Appetite, No Other HEENT: No Head Aches, No Visual Changes, No Eye Pain, No Ear Pain, No Dysphasia , No Sinus Congestion, No Post Nasal Drip, No Sore Throat, No Other Pulmonary: Dyspnea; No Cough, No Pleuritic Chest Pain, No Other Cardiovascular: No: Chest Pain, Palpitations, Orthopnea, Paroxysmal Noc. Dyspnea, Edema, Lt Headedness, Other Objective-Cardiology Exam Last Set of Vital Signs Vital Signs 11/06/17 11/08/17 16:00 08:00 Temp 96.1 Pulse 72 Resp 18 B/P (MAP) 146/63 (90) Pulse Ox 92 O2 Delivery Nasal Cannula O2 Flow Rate 3.50 FiO2 30 Capillary Refill : Less Than 3 Seconds I&O Intake and Output 11/08/17 00:00 Intake Total 1690 ml Output Total 400 ml Balance 1290 ml Intake Oral 1640 ml IV Total 50 ml Output Urine Total 400 ml # Voids 2 # Bowel Movements 1 General: Alert, Oriented X3, Cooperative HEENT: Atraumatic, PERRLA Neck: Supple, No JVD, No Thyromegaly Lungs: Normal Air Movement, Other (bilateral rhonchi) Heart: Regular Rate, Normal S1, Normal S2, No Murmurs Abdomen: Normal Bowel Sounds, Soft, No Tenderness, No Hepatosplenomegaly, No Masses Extremities: No Clubbing, No Cyanosis, No Edema, Normal Pulses, No Tenderness/ Swelling Skin: No Rashes, No Breakdown, No Significant Lesion Neuro: Normal Gait, Normal Speech, Strength at 5/5 X4 Ext, Normal Tone, Sensation Intact Psych/Mental Status: Mental Status NL, Mood NL Results Lab Laboratory Tests 11/08/17 04:34 A/P-Cardiology Admission Diagnosis Shortness of breath Coronary artery disease Interstitial lung disease Hypertension Assessment/Plan Shortness of breath, acute on chronic respiratory failure, had left ventricular diastolic dysfunction, had cardiac catheterization done in July 2017 after having myocardial infarction and ventricular infarct. Currently feeling better, responded to diuresis. Continue to monitor Interstitial lung disease. Bibasilar pulmonary infiltrates during hosp of July and August 2017: CHF vs atelectasis vs pneumonia; unchanged on CT of 08/25/17. 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 Last CT chest of 10/09/17 showed some improvement of ground glass infiltrates and no new abnormality, I will stop IV Lasix and monitor renal function Acute renal insuf, probably secondary to diuretics, Hold and monitor electrolytes Coronary artery disease, status post cardiac catheterization done by Dr. Schumacher on 08/04/17 (for ac [place] and RV infarct): Mid vessel occlusion of the right coronary artery treated with overlapping stents (Alpine Xience 2.75 x 28 mm the distal part of which extends slightly into the right ventricular branch) and Alpine Xience 2.75 x 12 mm stent that was placed through the expanded struts of the previous stent and overlaps the previous stent to some degree. There is no significant residual stenosis in the right coronary artery and the flow was normal, but right ventricular branch was lost during the procedure due to infarct-related thrombus. A 90% to 95% stenosis of the proximal left circumflex artery, which was treated with stenting with Alpine Xience 2.25 x 12 mm stent with reduction of stenosis to 0% residual. The left anterior descending artery has diffuse nbwv-[id number]-ecdnwbag disease, continue to monitor Relative hypotension, improved after d/c bb and BRETT-inhibitor Echo of 11/01/17: LVEF 50-55%, grade I diastolic dysfunction, no significant pericard eff or valvular heart disease, PASP 25-30 mmHg Well preserved global left ventricular systolic function with ejection fraction 60%, postero-basal hypokinesis, no significant mitral regurgitation and mild elevation of left ventricular end-diastolic pressure on LHC of 08/04/17 TSH 0.26 on lab of 08-05-17 - suggestive of hyperthyroidism Clinical Quality Measures DVT/VTE Risk/Contraindication: Risk Factor Score Per Nursin RFS Level Per Nursing on Admit: 2=Moderate SERGEI CHUN MD Nov 08, 2017 10:54
[2017-11-08 11:52] VITALS: BP 110/62
--- NOTE | 2017-11-08 11:55 | Progress Note-Hospitalist ---
Subjective HPI/CC On Admission Date Seen by Provider: Nov 08, 2017 Time Seen by Provider: 10:45 CC: Dyspnea HPI: This is a 72-year-old white female known to me from lengthy hospital stay 3 months ago following a myocardial infarction status post stents deployed with subsequent lengthy hospital course for recovery that included pneumonia and respiratory insufficiency. 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 To note she did have a good recovery following inpatient rehabilitation and she was doing well at home doing laundry and housework so she had a near full recovery following the long hospital stay but last night she started feeling so badly she resented to the ER. Currently patient is maintaining good oxygen status although she does wear 2 L at home 16/12 but with any activity or exertion she does desaturate. Considering the severe desaturation with any activity she will maintain Tsang catheter today and maintain ICU status. I reviewed records from specialists and prior hospital stay. Subjective/Events-last exam patient reports feeling less short of breath and denies chest pain and is had no sputum production. She denies chills or feverwith improved appetite. Objective Exam Vital Signs Vital Signs Date Time Temp Pulse Resp B/P (MAP) Pulse Ox O2 Delivery O2 Flow Rate FiO2 11/08/17 10:55 96.1 11/08/17 08:00 72 18 146/63 (90) 92 Nasal Cannula 3.50 11/06/17 16:00 30 Capillary Refill : Less Than 3 Seconds General Appearance: No Apparent Distress, Chronically ill Respiratory: No Accessory Muscle Use, No Respiratory Distress, Other (dry sounding rales noted of the midlung nguyen posteriorly elsewhere the chest is clear no wheezing is appreciated.) Cardiovascular: Regular Rate, Rhythm, No Edema, No Gallop, No JVD, No Murmur, Normal Peripheral Pulses Gastrointestinal: Normal Bowel Sounds, No Organomegaly, Non Tender Extremity: No Pedal Edema Results/Procedures Lab Laboratory Tests 11/08/17 04:34 Patient resulted labs reviewed. Assessment/Plan Assessment and Plan Assess & Plan/Chief Complaint A/P acute exacerbation of interstitial lung diseaseversus infectious pneumonia continue antibiotics. We will switch to oral prednisone in the morning. 2. Steroid-induced type II diabetes mellitus blood sugars are moderating but will switch from a regular diet to a 1500-calorie ADA diet Expect with decreasing steroid doseblood sugars will continue to moderateno further therapy for now.3. Reported recentacute [place] no current evidence for heart failure. 4. Debility multifactorial improving. Critical Care Critical Care: Critically Ill Patient Clinical Quality Measures DVT/VTE Risk/Contraindication: Risk Factor Score Per Nursin RFS Level Per Nursing on Admit: 2=Moderate CLARK STONE MD Nov 08, 2017 11:55
[2017-11-08 16:00] VITALS: BP 104/57
[2017-11-08 20:03] VITALS: BP 103/58
[2017-11-08] MEDS: CALCIUM CARB + VIT D 600 MG (CALCARB + D) TAB PO SCH (20:58)
[2017-11-08] MEDS: ATORVASTATIN 80 MG (LIPITOR) TABLET PO SCH (20:58)
[2017-11-09] VITALS: BP 118/58
[2017-11-09 03:26] VITALS: BP 105/58
[2017-11-09 04:49] LABS: BASOPHILS % (AUTO) 0 % (0-10); EOSINOPHILS # (AUTO) 0.4 10^3/uL (0.0-0.3); EOSINOPHILS % (AUTO) 4 % (0-10); HEMATOCRIT 38 % (35-52); HEMOGLOBIN 12.8 G/DL (11.5-16.0); LYMPHOCYTES # (AUTO) 0.9 X 10^3 (1.0-4.0); LYMPHOCYTES % (AUTO) 9 % (12-44); MEAN CORPUSCULAR HEMOGLOBIN 30 PG (25-34); MEAN CORPUSCULAR HGB CONC 33 G/DL (32-36); MEAN CORPUSCULAR VOLUME 91 FL (80-99); MEAN PLATELET VOLUME 9.5 FL (7.4-10.4); MONOCYTES % (AUTO) 9 % (0-12); NEUTROPHILS # (AUTO) 8.1 X 10^3 (1.8-7.8); NEUTROPHILS % (AUTO) 78 % (42-75); PLATELET COUNT 237 10^3/uL (130-400); RED BLOOD COUNT 4.23 10^6/uL (4.35-5.85); RED CELL DISTRIBUTION WIDTH 13.3 % (10.0-14.5); WHITE BLOOD COUNT 10.4 10^3/uL (4.3-11.0)
[2017-11-09 05:13] LABS: BUN/CREATININE RATIO 22; CALCIUM 8.6 MG/DL (8.5-10.1); CARBON DIOXIDE 30 MMOL/L (21-32); CHLORIDE 96 MMOL/L (98-107); GFR ESTIMATED > 60; GLUCOSE 119 MG/DL (70-105); MAGNESIUM 2.1 MG/DL (1.8-2.4); PHOSPHORUS 3.5 MG/DL (2.3-4.7); POTASSIUM 4.1 MMOL/L (3.6-5.0); SODIUM 135 MMOL/L (135-145)
[2017-11-09] MEDS: KCL 20 MEQ TAB (K-DUR) PO SCH (06:05)
[2017-11-09] MEDS: NYSTATIN ORAL SUSP 5 ML UDC PO SCH ×5 (06:05→23:09)
[2017-11-09] MEDS: PANTOPRAZOLE 40 MG (PROTONIX) TAB PO SCH (06:05)
[2017-11-09] MEDS: ceFAZolin INJECTION 1,000 MG in NS (IVPB) 50 ML IV SCH ×3 (06:05→21:01)
[2017-11-09] MEDS: LEVOTHYROXINE 75 MCG (LEVOTHROID) TABLET PO SCH (06:05)
[2017-11-09] MEDS ORDERED: predniSONE 20 MG TAB PO SCH (07:00)
--- NOTE | 2017-11-09 07:21 | Diagnostic Imaging Report ---
Indication: Dyspnea and hypoxia, heart failure. Discussion: Single portable upright view of the chest was obtained, comparison 11/08/2017. Borderline cardiomegaly is stable. Elevated right hemidiaphragm is again noted. Bilateral mixed interstitial and alveolar opacities are increased from the prior exam, likely worsening pulmonary edema, less likely infection. No pleural fluid or pneumothorax. Impression: 1. Cardiomegaly with worsening infiltrates. Dictated by: Dictated on workstation # [id number]
[2017-11-09 08:00] VITALS: BP 104/58
[2017-11-09] MEDS: BENZONATATE 100 MG (TESSALON) CAPSULE PO SCH ×3 (08:17→20:59)
[2017-11-09] MEDS: DOCUSATE SODIUM 100 MG (COLACE) CAP PO SCH ×2 (08:17→20:52)
[2017-11-09] MEDS: LORATADINE (CLARITIN) 10 MG TAB PO SCH (08:17)
[2017-11-09] MEDS: ASPIRIN 81 MG CHEW (CHILDREN'S ASA) PO SCH (08:17)
[2017-11-09] MEDS: CLOPIDOGREL 75 MG (PLAVIX) TABLET PO SCH (08:17)
[2017-11-09] MEDS: ENOXAPARIN 40 MG/0.4 ML (LOVENOX) SYR SC SCH (08:18)
[2017-11-09] MEDS: LACTULOSE SYRUP 10GM/15ML (ENULOSE) 30ML UDC PO SCH ×2 (08:18→20:52)
[2017-11-09] MEDS: VENlafaxine 37.5 MG (EFFEXOR) TAB PO SCH (08:25)
--- NOTE | 2017-11-09 09:51 | Cardiology Progress Note ---
Subjective Date Seen by Provider: Nov 09, 2017 Time Seen by Provider: 09:47 Subjective/Events-last exam Patient is in bed, feeling better, no new complaint, no chest pain, her breathing is better Review of Systems General: No Chills, No Night Sweats, No Fatigue, No Malaise, No Appetite, No Other HEENT: No Head Aches, No Visual Changes, No Eye Pain, No Ear Pain, No Dysphasia , No Sinus Congestion, No Post Nasal Drip, No Sore Throat, No Other Pulmonary: Dyspnea; No Cough, No Pleuritic Chest Pain, No Other Cardiovascular: No: Chest Pain, Palpitations, Orthopnea, Paroxysmal Noc. Dyspnea, Edema, Lt Headedness, Other Objective-Cardiology Exam Last Set of Vital Signs Vital Signs 11/06/17 11/09/17 16:00 08:00 Temp 98.5 Pulse 79 Resp 18 B/P (MAP) 104/58 (73) Pulse Ox 95 O2 Delivery Nasal Cannula O2 Flow Rate 3.50 FiO2 30 Capillary Refill : Less Than 3 Seconds I&O Intake and Output 11/09/17 00:00 Intake Total 1580 ml Balance 1580 ml Intake Oral 1350 ml IV Total 230 ml # Voids 8 # Bowel Movements 1 General: Alert, Oriented X3, Cooperative HEENT: Atraumatic, PERRLA Neck: Supple, No JVD, No Thyromegaly Lungs: Normal Air Movement, Other (bilateral rhonchi) Heart: Regular Rate, Normal S1, Normal S2, No Murmurs Abdomen: Normal Bowel Sounds, Soft, No Tenderness, No Hepatosplenomegaly, No Masses Extremities: No Clubbing, No Cyanosis, No Edema, Normal Pulses, No Tenderness/ Swelling Skin: No Rashes, No Breakdown, No Significant Lesion Neuro: Normal Gait, Normal Speech, Strength at 5/5 X4 Ext, Normal Tone, Sensation Intact Psych/Mental Status: Mental Status NL, Mood NL Results Lab Laboratory Tests 11/09/17 04:35 A/P-Cardiology Admission Diagnosis Shortness of breath Coronary artery disease Interstitial lung disease Hypertension Assessment/Plan Shortness of breath, acute on chronic respiratory failure, had left ventricular diastolic dysfunction, Currently feeling better, responded to diuresis. Continue to monitor Interstitial lung disease. Bibasilar pulmonary infiltrates during hosp of July and August 2017: CHF vs atelectasis vs pneumonia; unchanged on CT of 08/25/17. 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 Last CT chest of 10/09/17 showed some improvement of ground glass infiltrates and no new abnormality. Lasix was stopped yesterday, doing well, continue to monitor Coronary artery disease, status post cardiac catheterization done by Dr. Schumacher on 08/04/17 (for ac DE and RV infarct): Mid vessel occlusion of the right coronary artery treated with overlapping stents (Alpine Xience 2.75 x 28 mm the distal part of which extends slightly into the right ventricular branch) and Alpine Xience 2.75 x 12 mm stent that was placed through the expanded struts of the previous stent and overlaps the previous stent to some degree. There is no significant residual stenosis in the right coronary artery and the flow was normal, but right ventricular branch was lost during the procedure due to infarct-related thrombus. A 90% to 95% stenosis of the proximal left circumflex artery, which was treated with stenting with Alpine Xience 2.25 x 12 mm stent with reduction of stenosis to 0% residual. The left anterior descending artery has diffuse [id number] disease, continue to monitor Relative hypotension, improved after d/c bb and BRETT-inhibitor Echo of 11/01/17: LVEF 50-55%, grade I diastolic dysfunction, no significant pericard eff or valvular heart disease, PASP 25-30 mmHg Well preserved global left ventricular systolic function with ejection fraction 60%, postero-basal hypokinesis, no significant mitral regurgitation and mild elevation of left ventricular end-diastolic pressure on LHC of 08/04/17 TSH 0.26 on lab of 08-05-17 - suggestive of hyperthyroidism Clinical Quality Measures DVT/VTE Risk/Contraindication: Risk Factor Score Per Nursin RFS Level Per Nursing on Admit: 2=Moderate SERGEI CHUN MD Nov 09, 2017 09:51
[2017-11-09] MEDS: ANIDULAFUNGIN IV SCH (09:53)
[2017-11-09] MEDS: D5W IV SCH (09:53)
[2017-11-09] MEDS: RT-ADVAIR HFA 115/21 MCG PER PUFF IH SCH ×2 (10:21→19:37)
[2017-11-09] MEDS: RT-ALBUTEROL/IPRATROPIUM 3 ML (DUONEB) VIAL INH SCH ×2 (10:21→19:37)
[2017-11-09 12:00] VITALS: BP 112/72
--- NOTE | 2017-11-09 12:10 | Progress Note-Hospitalist ---
Subjective HPI/CC On Admission Date Seen by Provider: Nov 09, 2017 Time Seen by Provider: 09:30 CC: Dyspnea HPI: This is a 72-year-old white female known to me from lengthy hospital stay 3 months ago following a myocardial infarction status post stents deployed with subsequent lengthy hospital course for recovery that included pneumonia and respiratory insufficiency. 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 To note she did have a good recovery following inpatient rehabilitation and she was doing well at home doing laundry and housework so she had a near full recovery following the long hospital stay but last night she started feeling so badly she resented to the ER. Currently patient is maintaining good oxygen status although she does wear 2 L at home 16/12 but with any activity or exertion she does desaturate. Considering the severe desaturation with any activity she will maintain Tsang catheter today and maintain ICU status. I reviewed records from specialists and prior hospital stay. Subjective/Events-last exam Patient continues to feel better ambulated a short distance night in the halls yesterday with improving endurance. No significant coughing. No significant sputum production or chest pain reported. Objective Exam Vital Signs Vital Signs Date Time Temp Pulse Resp B/P (MAP) Pulse Ox O2 Delivery O2 Flow Rate FiO2 11/09/17 10:23 95 Nasal Cannula 3.00 11/09/17 08:00 98.5 79 18 104/58 (73) 11/06/17 16:00 30 Capillary Refill : Less Than 3 Seconds General Appearance: No Apparent Distress, Chronically ill Respiratory: No Accessory Muscle Use, No Respiratory Distress, Other (Dry basilar rales noted chest clear otherwise) Cardiovascular: Regular Rate, Rhythm, No Edema, No Gallop, No JVD, No Murmur, Normal Peripheral Pulses Gastrointestinal: Normal Bowel Sounds, No Organomegaly, No Pulsatile Mass, Non Tender, Soft Extremity: Normal Inspection, No Calf Tenderness, No Pedal Edema Neurologic/Psychiatric: Alert, Oriented x3 Results/Procedures Lab Laboratory Tests 11/09/17 04:35 Patient resulted labs reviewed. Assessment/Plan Assessment and Plan Assess & Plan/Chief Complaint A/P acute exacerbation of interstitial lung disease versus infectious pneumonia continue antibiotics. Respiratory status continues to improve with switch to 40 mg of oral prednisone this morning. We'll decrease to 30 mg tomorrow. 2. Steroid-induced type II diabetes mellitus blood sugars are moderating but will switch from a regular diet to a 1500-calorie ADA diet Expect with decreasing steroid dose blood sugars will continue to moderate no further therapy for now.3. Reported recent acute [place] no current evidence for heart failure. 4. Debility multifactorial improving. Critical Care Critical Care: Critically Ill Patient Clinical Quality Measures DVT/VTE Risk/Contraindication: Risk Factor Score Per Nursin RFS Level Per Nursing on Admit: 2=Moderate CLARK STONE MD Nov 09, 2017 12:10
[2017-11-09 15:54] VITALS: BP 119/62
[2017-11-09 15:56] VITALS: BP 111/64
[2017-11-09] MEDS: ATORVASTATIN 80 MG (LIPITOR) TABLET PO SCH (20:59)
[2017-11-09] MEDS: CALCIUM CARB + VIT D 600 MG (CALCARB + D) TAB PO SCH (20:59)
[2017-11-10] VITALS: BP 114/67
[2017-11-10] MEDS: ceFAZolin INJECTION 1,000 MG in NS (IVPB) 50 ML IV SCH ×3 (06:09→23:05)
[2017-11-10] MEDS: PANTOPRAZOLE 40 MG (PROTONIX) TAB PO SCH (06:09)
[2017-11-10] MEDS: LEVOTHYROXINE 75 MCG (LEVOTHROID) TABLET PO SCH (06:09)
[2017-11-10] MEDS: predniSONE 10 MG TAB PO SCH (06:09)
[2017-11-10] MEDS: NYSTATIN ORAL SUSP 5 ML UDC PO SCH ×4 (06:09→23:33)
[2017-11-10] MEDS: KCL 20 MEQ TAB (K-DUR) PO SCH (06:09)
[2017-11-10] MEDS: RT-ALBUTEROL/IPRATROPIUM 3 ML (DUONEB) VIAL INH SCH ×2 (06:41→19:15)
[2017-11-10] MEDS: RT-ADVAIR HFA 115/21 MCG PER PUFF IH SCH ×2 (06:41→19:15)
[2017-11-10 07:01] LABS: BASOPHILS % (AUTO) 0 % (0-10); EOSINOPHILS # (AUTO) 0.2 10^3/uL (0.0-0.3); EOSINOPHILS % (AUTO) 2 % (0-10); HEMATOCRIT 37 % (35-52); HEMOGLOBIN 12.6 G/DL (11.5-16.0); LYMPHOCYTES # (AUTO) 0.8 X 10^3 (1.0-4.0); LYMPHOCYTES % (AUTO) 7 % (12-44); MEAN CORPUSCULAR HEMOGLOBIN 31 PG (25-34); MEAN CORPUSCULAR HGB CONC 34 G/DL (32-36); MEAN CORPUSCULAR VOLUME 91 FL (80-99); MEAN PLATELET VOLUME 10.2 FL (7.4-10.4); MONOCYTES # (AUTO) 0.8 X 10^3 (0.0-1.0); MONOCYTES % (AUTO) 7 % (0-12); NEUTROPHILS % (AUTO) 84 % (42-75); PLATELET COUNT 194 10^3/uL (130-400); RED BLOOD COUNT 4.04 10^6/uL (4.35-5.85); RED CELL DISTRIBUTION WIDTH 13.2 % (10.0-14.5); WHITE BLOOD COUNT 10.8 10^3/uL (4.3-11.0)
[2017-11-10 07:21] LABS: BUN/CREATININE RATIO 30; CALCIUM 8.5 MG/DL (8.5-10.1); CARBON DIOXIDE 28 MMOL/L (21-32); CHLORIDE 99 MMOL/L (98-107); CREATININE SERUM 0.53 MG/DL (0.60-1.30); GFR ESTIMATED > 60; GLUCOSE 128 MG/DL (70-105); MAGNESIUM 2.1 MG/DL (1.8-2.4); POTASSIUM 4.1 MMOL/L (3.6-5.0); SODIUM 135 MMOL/L (135-145)
--- NOTE | 2017-11-10 07:36 | Pulmonary Progress Note ---
Subjective Time Seen by Provider: 07:39 Subjective/Events-last exam PT still complains of dyspnea worse with exertion. Exam Exam Vital Signs Date Time Temp Pulse Resp B/P (MAP) Pulse Ox O2 Delivery O2 Flow Rate FiO2 11/10/17 06:59 Nasal Cannula 3.00 11/10/17 06:58 93 Nasal Cannula 3.00 11/10/17 06:42 82 93 11/10/17 00:00 97.5 79 16 114/67 (83) 95 Nasal Cannula 3.00 11/09/17 20:00 Nasal Cannula 3.00 11/09/17 19:43 Nasal Cannula 3.00 11/09/17 19:37 91 Nasal Cannula 3.00 11/09/17 15:56 98.4 85 20 111/64 (80) 94 Nasal Cannula 3.50 11/09/17 13:10 95 Nasal Cannula 3.00 11/09/17 12:00 98.5 83 18 112/72 (85) 97 Nasal Cannula 3.50 11/09/17 10:23 95 Nasal Cannula 3.00 11/09/17 08:00 98.5 79 18 104/58 (73) 95 Nasal Cannula 3.50 11/09/17 08:00 Nasal Cannula 3.00 I & O 11/10/17 07:00 Intake Total 1760 ml Balance 1760 ml General Appearance: No Apparent Distress, Chronically ill HEENT: Normal ENT Inspection Neck: Full Range of Motion Respiratory: No Accessory Muscle Use, No Respiratory Distress, Other (Dry basilar rales noted chest clear otherwise) Cardiovascular: Regular Rate, Rhythm, No Edema, No Gallop, No JVD, No Murmur, Normal Peripheral Pulses Capillary Refill: Less Than 3 Seconds Gastrointestinal: non tender, soft Extremity: Normal Inspection, No Calf Tenderness, No Pedal Edema Neurologic/Psychiatric: Alert, Oriented x3 Skin: Normal Color, Warm/Dry Lymphatic: No Adenopathy Results Lab Laboratory Tests 11/09/17 04:35 11/10/17 06:28 Assessment/Plan Assessment/Plan Acute on chronic respiratory failure -CXR shows worsening. -Lasix was stopped on Friday -repeat BNP -Prednisone has been titrated down to 30mg daily -Continue to monitor close -SVNs ILD-- Pt has heavy black mold in her house. -CT scan reviewed and shows ILD with traction bronchiectasis -s/p bronchoscopy -- BAL shows MSSA and candidiasis - Ancef and Eraxis -Pt's is planning on getting black mold cleaned up - I recommend professional beauty parlor cleaner for mold removal CHFAE - hx of diastolic CHF EF 60% CAD with recent LA debility/weakness -PT/OT Critical Care: Critically Ill Patient JUANA WILLS DO Nov 10, 2017 07:36
[2017-11-10 08:00] VITALS: BP 97/58
--- NOTE | 2017-11-10 08:00 | Diagnostic Imaging Report ---
Clinical indication: Patient with congestive heart failure, hypoxia. Exam: Portable chest x-ray upright view. Comparisons: Chest x-ray dated 11/09/2017. Findings: There is no significant change to the patchy bilateral lung infiltrates. There is no pleural effusion or pneumothorax. Mild cardiomegaly is again seen with no significant pulmonary vascular congestion. There is no pleural effusion or pneumothorax. The remainder of this exam shows no significant interval change compared to the prior study of comparison. Stable elevation of the right hemidiaphragm. Impression: 1.: Stable bilateral lung infiltrates and cardiomegaly. There is no significant pulmonary vascular congestion. 2: The remainder of this exam shows no significant interval change compared to the prior study of comparison. Dictated by: Dictated on workstation # [id number]
--- NOTE | 2017-11-10 08:05 | Progress Note (SOAP) ---
Subjective Time Seen by Provider: 08:00 Subjective/Events-last exam Patient feels she is doing better. Patient on 2 L of nasal oxygen. When patient exerts she goes to 4 L of nasal oxygen. Chest x-ray yesterday looked worse Objective Exam Vital Signs Date Time Temp Pulse Resp B/P (MAP) Pulse Ox O2 Delivery O2 Flow Rate FiO2 11/10/17 06:59 Nasal Cannula 3.00 11/10/17 06:58 93 Nasal Cannula 3.00 11/10/17 06:42 82 93 11/10/17 00:00 97.5 79 16 114/67 (83) 95 Nasal Cannula 3.00 11/09/17 20:00 Nasal Cannula 3.00 11/09/17 19:43 Nasal Cannula 3.00 11/09/17 19:37 91 Nasal Cannula 3.00 11/09/17 15:56 98.4 85 20 111/64 (80) 94 Nasal Cannula 3.50 11/09/17 13:10 95 Nasal Cannula 3.00 11/09/17 12:00 98.5 83 18 112/72 (85) 97 Nasal Cannula 3.50 11/09/17 10:23 95 Nasal Cannula 3.00 I & O 11/10/17 07:00 Intake Total 1760 ml Balance 1760 ml Capillary Refill : Less Than 3 Seconds General Appearance: No Apparent Distress, WD/WN HEENT: Normal ENT Inspection Neck: Full Range of Motion, Normal Inspection Respiratory: No Accessory Muscle Use, No Respiratory Distress, Decreased Breath Sounds Cardiovascular: Regular Rate, Rhythm Gastrointestinal: non tender, soft Results Lab Laboratory Tests 11/10/17 06:28 Laboratory Tests 11/10/17 06:28: White Blood Count 10.8, Red Blood Count 4.04L, Hemoglobin 12.6, Hematocrit 37, Mean Corpuscular Volume 91, Mean Corpuscular Hemoglobin 31, Mean Corpuscular Hemoglobin Concent 34, Red Cell Distribution Width 13.2, Platelet Count 194, Mean Platelet Volume 10.2, Neutrophils (%) (Auto) 84H, Lymphocytes (%) (Auto) 7L , Monocytes (%) (Auto) 7, Eosinophils (%) (Auto) 2, Basophils (%) (Auto) 0, Neutrophils # (Auto) 9.0H, Lymphocytes # (Auto) 0.8L, Monocytes # (Auto) 0.8, Eosinophils # (Auto) 0.2, Basophils # (Auto) 0.0, Sodium Level 135, Potassium Level 4.1, Chloride Level 99, Carbon Dioxide Level 28, Anion Gap 8, Blood Urea Nitrogen 16, Creatinine 0.53L, Estimat Glomerular Filtration Rate > 60, BUN/ Creatinine Ratio 30, Glucose Level 128H, Calcium Level 8.5, Phosphorus Level 3.0 , Magnesium Level 2.1 Microbiology 11/04/17 Mycobacterial Culture - Preliminary, Resulted Assessment/Plan Assessment/Plan Assess & Plan/Chief Complaint Short of breath. Acute and chronic respiratory failure. Diastolic congestive heart failure Coronary artery disease. Recent myocardial infarction. Debility. Hypoxia. Chronic eosinophil pneumonia. Hyponatremia. . 11/04/17. Patient had bronchoscopy this morning. Shortness of breath better. Acute and chronic respiratory failure. Diastolic congestive heart failure. Coronary artery disease. Recent myocardial infarction. Debility. Hyponatremia. Patient feeling better this morning. . 11/05/17. Patient feeling better this morning. Short of breath. Acute and chronic respiratory failure. Hyponatremia resolved. Diastolic congestive heart failure. Coronary artery disease. Recent myocardial infarction. Debility. Sputum staph aureus and Malena.. . 11/06/17. Patient had 2 episodes last night of desaturation. Patient gets short of breath when picking up a couple of water very Bronchial lavage shows staph aureus and Malena. . 11/07/17. Malena of tongue. Nystatin has helped according to patient. Recent MD. Debility. Patient feels she's doing a little better today. Patient able to eat without shortness of breath or Patient able to slat pickler a cup of water without getting short of breath. Chronic respiratory failure. Diastolic congestive heart failure. Coronary artery disease. Hypoxia. Hyponatremia. . 11/10/17. CHF. Coronary artery disease. Thrush in mouth. Recent MD. Chronic respiratory failure. Diastolic congestive heart failure. Hypoxia. Hyponatremia Clinical Quality Measures DVT/VTE Risk/Contraindication: Risk Factor Score Per Nursin RFS Level Per Nursing on Admit: 2=Moderate ABRAM BRITT DO Nov 10, 2017 08:05
[2017-11-10] MEDS: VENlafaxine 37.5 MG (EFFEXOR) TAB PO SCH (08:18)
[2017-11-10] MEDS: BENZONATATE 100 MG (TESSALON) CAPSULE PO SCH ×3 (08:18→20:39)
[2017-11-10] MEDS: ENOXAPARIN 40 MG/0.4 ML (LOVENOX) SYR SC SCH (08:18)
[2017-11-10] MEDS: DOCUSATE SODIUM 100 MG (COLACE) CAP PO SCH ×2 (08:19→20:39)
[2017-11-10] MEDS: ASPIRIN 81 MG CHEW (CHILDREN'S ASA) PO SCH (08:19)
[2017-11-10] MEDS: LORATADINE (CLARITIN) 10 MG TAB PO SCH (08:19)
[2017-11-10] MEDS: LACTULOSE SYRUP 10GM/15ML (ENULOSE) 30ML UDC PO SCH ×3 (08:19→20:39)
[2017-11-10] MEDS: CLOPIDOGREL 75 MG (PLAVIX) TABLET PO SCH (08:19)
--- NOTE | 2017-11-10 08:44 | Progress Note-Cardiology ---
Cardiology SOAP Progress Note Subjective: Sitting up in bed eating morning meal. Feels SOB is unchanged from yesterday. C/O dyspnea with minimal exertion. No c/o CP, palpitations, syncope or near syncope. Objective: I&O/Vital Signs 11/10/17 11/10/17 11/10/17 11/10/17 00:00 06:42 06:58 06:59 Temp 97.5 Pulse 79 82 Resp 16 B/P (MAP) 114/67 (83) Pulse Ox 95 93 93 O2 Delivery Nasal Cannula Nasal Cannula Nasal Cannula O2 Flow Rate 3.00 3.00 3.00 11/10/17 08:00 Temp 99.5 Pulse 85 Resp 16 B/P (MAP) 97/58 (71) Pulse Ox 98 O2 Delivery Nasal Cannula O2 Flow Rate 3.00 11/10/17 00:00 Intake Total 1410 ml Balance 1410 ml Weight (Pounds): 135 Weight (Ounces): 8.0 Weight (Calculated Kilograms): [id number] Constitutional: AAO x 3, well-developed, other Respiratory: No accessory muscle use; other (Fair bilat air entry, coarse basal crackles) Cardiovascular: regular rate-rhythm, S1 and S2, systolic murmur (soft CEDRICK at card base) Gastrointestional: No tender; soft; No guarding, No rebound; audible bowel sounds Extremities: No clubbing, No cyanosis, No significant edema Neurologic/Psychiatric: oriented x 3, grossly intact, power is 5/5 both on sides Skin: No rash on exposed areas, No ulcerations on exposed areas Results/Procedures: Labs Laboratory Tests 11/10/17 06:28: White Blood Count 10.8, Red Blood Count 4.04L, Hemoglobin 12.6, Hematocrit 37, Mean Corpuscular Volume 91, Mean Corpuscular Hemoglobin 31, Mean Corpuscular Hemoglobin Concent 34, Red Cell Distribution Width 13.2, Platelet Count 194, Mean Platelet Volume 10.2, Neutrophils (%) (Auto) 84H, Lymphocytes (%) (Auto) 7L , Monocytes (%) (Auto) 7, Eosinophils (%) (Auto) 2, Basophils (%) (Auto) 0, Neutrophils # (Auto) 9.0H, Lymphocytes # (Auto) 0.8L, Monocytes # (Auto) 0.8, Eosinophils # (Auto) 0.2, Basophils # (Auto) 0.0, Sodium Level 135, Potassium Level 4.1, Chloride Level 99, Carbon Dioxide Level 28, Anion Gap 8, Blood Urea Nitrogen 16, Creatinine 0.53L, Estimat Glomerular Filtration Rate > 60, BUN/ Creatinine Ratio 30, Glucose Level 128H, Calcium Level 8.5, Phosphorus Level 3.0 , Magnesium Level 2.1, B-Type Natriuretic Peptide 163.4H Microbiology 11/04/17 Mycobacterial Culture - Preliminary, Resulted Laboratory Tests 11/09/17 04:35 11/10/17 06:28 Procedures NAME: LEYLA CASTELLANO [facility] REC#: [id number] PT STATUS: ADM IN : 1945 PHYSICIAN: ZHANNA CARMONA DO ADMIT DATE: 10/31/17 Draft Date of Exam:11/10/17 CHEST 1 VIEW, AP/PA ONLY Clinical indication: Patient with congestive heart failure, hypoxia. Exam: Portable chest x-ray upright view. Comparisons: Chest x-ray dated 11/09/2017. Findings: There is no significant change to the patchy bilateral lung infiltrates. There is no pleural effusion or pneumothorax. Mild cardiomegaly is again seen with no significant pulmonary vascular congestion. There is no pleural effusion or pneumothorax. The remainder of this exam shows no significant interval change compared to the prior study of comparison. Stable elevation of the right hemidiaphragm. Impression: 1.: Stable bilateral lung infiltrates and cardiomegaly. There is no significant pulmonary vascular congestion. 2: The remainder of this exam shows no significant interval change compared to the prior study of comparison. Dictated on workstation # [id number] Dict: 11/10/17 0751 Trans: 11/10/17 0800 EDI [id number] Interpreted by: NINA SPARKS MD Electronically signed by: A/P: Assessment: Ac on chronic resp failure, multifactorial (see below) Ac on chronic diastolic CHF - clinically improved Interstitial lung disease. Bibasilar pulmonary infiltrates during hosp of July and August 2017: CHF vs atelectasis vs pneumonia; unchanged on CT of 08/25/17. 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 Last CT chest of 10/09/17 showed some improvement of ground glass infiltrates and no new abnormality Hyponatremia, likely related to diuretic therapy Coronary artery disease, status post cardiac catheterization done by Dr. 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 There is no significant residual stenosis in the right coronary artery and the flow was normal, but right ventricular branch was lost during the procedure due to infarct-related thrombus. A 90% to 95% stenosis of the proximal left circumflex artery, which was treated with stenting with Alpine Xience 2.25 x 12 mm stent with reduction of stenosis to 0% residual. The left anterior descending artery has diffuse [id number] disease Relative hypotension, improved after d/c bb and BRETT-inhibitor Echo of 11/01/17: LVEF 50-55%, grade I rouse dysfunction, no significant pericard eff or valvular heart disease, PASP 25-30 mmHg Well preserved global left ventricular systolic function with ejection fraction 60%, postero-basal hypokinesis, no significant mitral regurgitation and mild elevation of left ventricular end-diastolic pressure on LHC of 08/04/17 TSH 0.26 on lab of 08-05-17 - suggestive of hyperthyroidism Elevated ESR, followed and treated by [facility] Plan: * Complex management due to multiple comorbidities * Continue diuretics * ILD with steroids * Monitor labs * Continue dual antiplatelet therapy * Dr. Schumacher has had a long discussion with her and her fam regarding her CV issues and our treatment plan * Tolerating BB ABHISHEK BANDA Nov 10, 2017 08:44
--- NOTE | 2017-11-10 09:28 | Progress Note-Cardiology ---
Cardiology SOAP Progress Note Subjective: Shortness of breath modestly improved. No cp or palp or syncope Objective: I&O/Vital Signs 11/10/17 11/10/17 11/10/17 11/10/17 00:00 06:42 06:58 06:59 Temp 97.5 Pulse 79 82 Resp 16 B/P (MAP) 114/67 (83) Pulse Ox 95 93 93 O2 Delivery Nasal Cannula Nasal Cannula Nasal Cannula O2 Flow Rate 3.00 3.00 3.00 11/10/17 08:00 Temp 99.5 Pulse 85 Resp 16 B/P (MAP) 97/58 (71) Pulse Ox 98 O2 Delivery Nasal Cannula O2 Flow Rate 3.00 11/10/17 00:00 Intake Total 1410 ml Balance 1410 ml Weight (Pounds): 135 Weight (Ounces): 8.0 Weight (Calculated Kilograms): 61.139917 Constitutional: AAO x 3, well-developed, other Respiratory: No accessory muscle use; other (Fair bilat air entry, coarse basal crackles) Cardiovascular: regular rate-rhythm, S1 and S2, systolic murmur (soft CEDRICK at card base) Gastrointestional: No tender; soft; No guarding, No rebound; audible bowel sounds Extremities: No clubbing, No cyanosis, No significant edema Neurologic/Psychiatric: oriented x 3, grossly intact, power is 5/5 both on sides Skin: No rash on exposed areas, No ulcerations on exposed areas Results/Procedures: Labs Laboratory Tests 11/10/17 06:28: White Blood Count 10.8, Red Blood Count 4.04L, Hemoglobin 12.6, Hematocrit 37, Mean Corpuscular Volume 91, Mean Corpuscular Hemoglobin 31, Mean Corpuscular Hemoglobin Concent 34, Red Cell Distribution Width 13.2, Platelet Count 194, Mean Platelet Volume 10.2, Neutrophils (%) (Auto) 84H, Lymphocytes (%) (Auto) 7L , Monocytes (%) (Auto) 7, Eosinophils (%) (Auto) 2, Basophils (%) (Auto) 0, Neutrophils # (Auto) 9.0H, Lymphocytes # (Auto) 0.8L, Monocytes # (Auto) 0.8, Eosinophils # (Auto) 0.2, Basophils # (Auto) 0.0, Sodium Level 135, Potassium Level 4.1, Chloride Level 99, Carbon Dioxide Level 28, Anion Gap 8, Blood Urea Nitrogen 16, Creatinine 0.53L, Estimat Glomerular Filtration Rate > 60, BUN/ Creatinine Ratio 30, Glucose Level 128H, Calcium Level 8.5, Phosphorus Level 3.0 , Magnesium Level 2.1, B-Type Natriuretic Peptide 163.4H Microbiology 11/04/17 Mycobacterial Culture - Preliminary, Resulted Laboratory Tests 11/09/17 04:35 11/10/17 06:28 A/P: Assessment: Ac on chronic resp failure, multifactorial (see below) Ac on chronic diastolic CHF - clinically improved Interstitial lung disease. Bibasilar pulmonary infiltrates during hosp of July and August 2017: CHF vs atelectasis vs pneumonia; unchanged on CT of 08/25/17. 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 Last CT chest of 10/09/17 showed some improvement of ground glass infiltrates and no new abnormality Hyponatremia, likely related to diuretic therapy Coronary artery disease, status post cardiac catheterization done by Dr. Pinon on 08/04/17 (for ac IMI and RV infarct): Mid vessel occlusion of the right coronary artery treated with overlapping stents (Alpine Xience 2.75 x 28 mm the distal part of which extends slightly into the right ventricular branch) and Alpine Xience 2.75 x 12 mm stent that was placed through the expanded struts of the previous stent and overlaps the previous stent to some degree. There is no significant residual stenosis in the right coronary artery and the flow was normal, but right ventricular branch was lost during the procedure due to infarct-related thrombus. A 90% to 95% stenosis of the proximal left circumflex artery, which was treated with stenting with Alpine Xience 2.25 x 12 mm stent with reduction of stenosis to 0% residual. The left anterior descending artery has diffuse [id number] disease Relative hypotension, improved after d/c bb and BRETT-inhibitor Echo of 11/01/17: LVEF 50-55%, grade I rouse dysfunction, no significant pericard eff or valvular heart disease, PASP 25-30 mmHg Well preserved global left ventricular systolic function with ejection fraction 60%, postero-basal hypokinesis, no significant mitral regurgitation and mild elevation of left ventricular end-diastolic pressure on LHC of 08/04/17 TSH 0.26 on lab of 08-05-17 - suggestive of hyperthyroidism Elevated ESR, followed and treated by Pulm and Med Svce Plan: * Complex management due to multiple comorbidities * Continue diuretics * ILD treated with steroids * Monitor labs * Continue dual antiplatelet therapy * CXR does not show CHF, but continues to show bibasilar infiltrates * Tolerating BB LIZY PINON MD FACP FAC CCDS Nov 10, 2017 09:28
[2017-11-10] MEDS: ANIDULAFUNGIN IV SCH (10:03)
[2017-11-10] MEDS: D5W IV SCH (10:03)
--- NOTE | 2017-11-10 11:27 | Occupational Ther Daily Note ---
OT Current Status-Daily Note Subjective No pain reported. However, pt. does report that she has been short of air. Appearance Pt. in bed. States that she has already had a shower this morning. Declines putting on street clothing. Agrees to ambulate with OT. Mental Status/Objective Patient Orientation: Person, Place, Time, Situation Functional [place] Measure 0=Not Assessed/NA 4=Minimal Assistance 1=Total Assistance 5=Supervision or Setup 2=Maximal Assistance 6=Modified [place] 3=Moderate Assistance 7=Complete [place] ADL-Treatment Functional [place] Measure 0=Not Assessed/NA 4=Minimal Assistance 1=Total Assistance 5=Supervision or Setup 2=Maximal Assistance 6=Modified [place] 3=Moderate Assistance 7=Complete IndependenceIRFPAI Quality Coding Scale 6 Independent with activity with or without an assistive device 5 Patient requires set up or clean up by helper. Patient completes activity by themselves 4 Supervision or touching assist (CGA). [place] provide cues , steadying assist 3 The helper provides less than half the effort to complete the activity 2 The helper provides more than half the effort to complete the activity 1 Dependent. The helper does all the effort to complete an activity 7 Patient refused to complete or attempt activity 9 The patient did not perform the activity before the current illness or injury 88 Not attempted due to Medical conditions or safety concerns Transfers (B, C, W/C) (FIM): 5 (Pt. transferred in and out of bed with Mod I. Pt. ambulated with OT with Mod I. OT did push oxygen tank and IV pole. Pt. able to ambulate approximately 150 feet with walker. Pt. states that she needs to lay back down, as she is quickly short of air. All needs met in room, and pt. able to breathe normally.) Education OT Patient Education: Correct positioning, Modified ADL techniques, Progress toward Goal/Update tx plan, Purpose of tx/functional activities, Reviewed precautions, Rehab process, Transfer techniques Teaching Recipient: Patient Teaching Methods: Demonstration, Discussion Response to Teaching: Verbalize Understanding, Return Demonstration OT Short Term Goals Short Term Goals 1=Demonstrate adherence to instructed precautions during ADL tasks. 2=Patient will verbalize/demonstrate understanding of assistive devices/ modifications for ADL. 3=Patient will improve strength/tolerance for activity to enable patient to perform ADL's. 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 2=Patient will verbalize/demonstrate understanding of assistive devices/ modifications for ADL. 3=Patient will improve strength/tolerance for activity to enable patient to perform ADL's. OT Education/Plan Problem List/Assessment Assessment: Decreased Activ Tolerance, Impaired I ADL's, Impaired Self-Care Skills Discharge Recommendations Plan/Recommendations: Continue POC Therapy D/C Recommendations: Home w/ Family Support Treatment Plan/Plan of Care Treatment,Training & Education: Yes Patient would benefit from OT for education, treatment and training to promote independence in ADL's, mobility, safety and/or upper extremity function for ADL' s. Plan of Care: ADL Retraining, Functional Mobility, UE Funct Exercise/Act Treatment Duration: Nov 17, 2017 Frequency: 5 times per week Estimated Hrs Per Day: .25 hour per day Agreement: Yes Rehab Potential: Fair Time/GCodes Start Time: 11:00 Stop Time: 11:15 Total Time Billed (hr/min): 15 Billed Treatment Time 1, MORGAN DUEÑAS OT Nov 10, 2017 11:26
--- NOTE | 2017-11-10 12:49 | Physical Therapy Daily Note ---
PT Daily Note-Current Subjective Patient is very agreeable to participate with PT. She reports she is up ad yung ambulating in hallway. Pain Numeric Pain Scale: 0-No Pain Location: No Pain Reported Mental Status Patient Orientation: Normal For Age Attachments: Oxygen (2-3L NC and incresae with activity) Transfers Functional [place] Measure 0=Not Assessed/NA 4=Minimal Assistance 1=Total Assistance 5=Supervision or Setup 2=Maximal Assistance 6=Modified [place] 3=Moderate Assistance 7=Complete IndependenceIRFPAI Quality Coding Scale 6 Independent with activity with or without an assistive device 5 Patient requires set up or clean up by helper. Patient completes activity by themselves 4 Supervision or touching assist (CGA). [place] provide cues , steadying assist 3 The helper provides less than half the effort to complete the activity 2 The helper provides more than half the effort to complete the activity 1 Dependent. The helper does all the effort to complete an activity 7 Patient refused to complete or attempt activity 9 The patient did not perform the activity before the current illness or injury 88 Not attempted due to Medical conditions or safety concerns Transfers (B, C, W/C) (FIM): 7 Scootin Rollin Supine to/from Sit: 7 Sit to/from Stand: 7 Weight Bearing Right Lower Extremity: Right Full Weight Bearing Left Lower Extremity: Left Full Weight Bearing Gait Training Gait (FIM): 6 Distance (FIM): 3=150 ft Distance: 175' Gait Level of Assist: 6 Gait Assistive Device: FWW assist for O2 tank only. Assessment Patient inquired about ambulating with spouse during day and evening. This PT highly encourages this. RN notified. PT Plan Treatment/Plan Treatment Plan: Continue Plan of Care Treatment Plan: Education, Functional Activity Herb, Functional Strength, Gait , Safety, Therapeutic Exercise, Transfers Treatment Duration: Nov 21, 2017 Frequency: 6 times per week Estimated Hrs Per Day: .5 hour per day Patient and/or Family Agrees t: Yes Time/GCodes Time In: 1230 Time Out: 1238 Total Billed Treatment Time: 8 Total Billed Treatment 1 visit FA 8 min SOFIE SIMMONS PT Nov 10, 2017 12:49
[2017-11-10 15:40] VITALS: BP 126/71
[2017-11-10] MEDS: CALCIUM CARB + VIT D 600 MG (CALCARB + D) TAB PO SCH (20:39)
[2017-11-10] MEDS: ATORVASTATIN 80 MG (LIPITOR) TABLET PO SCH (20:39)
[2017-11-11 00:07] VITALS: BP 117/76
[2017-11-11 03:53] VITALS: BP 112/74
[2017-11-11 05:11] LABS: BASOPHILS % (AUTO) 0 % (0-10); EOSINOPHILS # (AUTO) 0.3 10^3/uL (0.0-0.3); EOSINOPHILS % (AUTO) 3 % (0-10); HEMATOCRIT 35 % (35-52); HEMOGLOBIN 11.8 G/DL (11.5-16.0); LYMPHOCYTES # (AUTO) 0.6 X 10^3 (1.0-4.0); LYMPHOCYTES % (AUTO) 6 % (12-44); MEAN CORPUSCULAR HGB CONC 33 G/DL (32-36); MEAN CORPUSCULAR VOLUME 91 FL (80-99); MEAN PLATELET VOLUME 9.7 FL (7.4-10.4); MONOCYTES # (AUTO) 0.8 X 10^3 (0.0-1.0); MONOCYTES % (AUTO) 8 % (0-12); NEUTROPHILS # (AUTO) 8.5 X 10^3 (1.8-7.8); NEUTROPHILS % (AUTO) 83 % (42-75); PLATELET COUNT 187 10^3/uL (130-400); RED BLOOD COUNT 3.87 10^6/uL (4.35-5.85); RED CELL DISTRIBUTION WIDTH 13.3 % (10.0-14.5); WHITE BLOOD COUNT 10.2 10^3/uL (4.3-11.0)
[2017-11-11 05:14] LABS: MEAN CORPUSCULAR HEMOGLOBIN 30 PG (25-34)
[2017-11-11 05:27] LABS: BUN/CREATININE RATIO 18; CALCIUM 8.5 MG/DL (8.5-10.1); CARBON DIOXIDE 29 MMOL/L (21-32); CHLORIDE 100 MMOL/L (98-107); CREATININE SERUM 0.55 MG/DL (0.60-1.30); GFR ESTIMATED > 60; GLUCOSE 119 MG/DL (70-105); MAGNESIUM 1.9 MG/DL (1.8-2.4); PHOSPHORUS 3.3 MG/DL (2.3-4.7); POTASSIUM 4.2 MMOL/L (3.6-5.0); SODIUM 134 MMOL/L (135-145)
[2017-11-11] MEDS: ceFAZolin INJECTION 1,000 MG in NS (IVPB) 50 ML IV SCH ×3 (06:07→21:49)
[2017-11-11] MEDS: NYSTATIN ORAL SUSP 5 ML UDC PO SCH ×4 (06:07→23:46)
[2017-11-11] MEDS: KCL 20 MEQ TAB (K-DUR) PO SCH (06:07)
[2017-11-11] MEDS: PANTOPRAZOLE 40 MG (PROTONIX) TAB PO SCH (06:08)
[2017-11-11] MEDS: predniSONE 10 MG TAB PO SCH (06:08)
[2017-11-11] MEDS: LEVOTHYROXINE 75 MCG (LEVOTHROID) TABLET PO SCH (06:08)
--- NOTE | 2017-11-11 07:16 | Pulmonary Progress Note ---
Subjective Time Seen by Provider: 07:16 Subjective/Events-last exam Pt appears to be doing slightly better. Exam Exam Vital Signs Date Time Temp Pulse Resp B/P (MAP) Pulse Ox O2 Delivery O2 Flow Rate FiO2 11/11/17 03:53 97.0 79 16 112/74 (87) 96 Nasal Cannula 3.00 11/11/17 00:07 96.0 74 18 117/76 (90) 95 Nasal Cannula 3.00 11/10/17 20:30 Nasal Cannula 3.00 11/10/17 19:21 Nasal Cannula 3.00 11/10/17 19:16 93 Nasal Cannula 3.00 11/10/17 15:40 97.0 82 16 126/71 (89) 95 Nasal Cannula 3.00 11/10/17 08:00 99.5 85 16 97/58 (71) 98 Nasal Cannula 3.00 11/10/17 08:00 Nasal Cannula 3.00 I & O 11/11/17 07:00 Intake Total 1620 ml Balance 1620 ml General Appearance: No Apparent Distress, WD/WN HEENT: Normal ENT Inspection Neck: Full Range of Motion, Normal Inspection Respiratory: No Accessory Muscle Use, No Respiratory Distress, Decreased Breath Sounds Cardiovascular: Regular Rate, Rhythm Capillary Refill: Less Than 3 Seconds Gastrointestinal: non tender, soft Extremity: Normal Inspection, No Calf Tenderness, No Pedal Edema Neurologic/Psychiatric: Alert, Oriented x3 Skin: Normal Color, Warm/Dry Lymphatic: No Adenopathy Results Lab Laboratory Tests 11/10/17 06:28 11/11/17 05:00 Assessment/Plan Assessment/Plan Acute on chronic respiratory failure -Lasix was stopped on Friday -repeat BNP -Prednisone has been titrated down to 30mg daily -Continue to monitor close -SVNs ILD-- Pt has heavy black mold in her house. -CT scan reviewed and shows ILD with traction bronchiectasis -s/p bronchoscopy -- BAL shows MSSA and candidiasis - Ancef and Eraxis -Pt's is planning on getting black mold cleaned up - I recommend professional leather cleaner for mold removal CHFAE - hx of diastolic CHF EF 60% CAD with recent SC debility/weakness -PT/OT 232 JUANA WILLS DO Nov 11, 2017 07:16
[2017-11-11 07:54] VITALS: BP 106/67
--- NOTE | 2017-11-11 07:58 | Diagnostic Imaging Report ---
INDICATION: CHF, hypoxia. COMPARISON: 11/10/2017. FINDINGS: Single view of the chest demonstrates stable cardiac enlargement with unchanged bilateral interstitial infiltrates. No pneumothorax or large effusion is seen. Osseous structures are stable. IMPRESSION: Unchanged aeration of the lungs. Dictated by: Dictated on workstation # [id number]
--- NOTE | 2017-11-11 08:10 | Progress Note (SOAP) ---
Subjective Time Seen by Provider: 08:05 Subjective/Events-last exam Patient slowly improving. Patient still has difficulty in getting to the restroom. Patient needing better. Patient able to blow into machine up to 1000. On admission was 500. Patient able to eat better Objective Exam Vital Signs Date Time Temp Pulse Resp B/P (MAP) Pulse Ox O2 Delivery O2 Flow Rate FiO2 11/11/17 07:54 99.1 86 16 106/67 (80) 97 Nasal Cannula 3.00 11/11/17 03:53 97.0 79 16 112/74 (87) 96 Nasal Cannula 3.00 11/11/17 00:07 96.0 74 18 117/76 (90) 95 Nasal Cannula 3.00 11/10/17 20:30 Nasal Cannula 3.00 11/10/17 19:21 Nasal Cannula 3.00 11/10/17 19:16 93 Nasal Cannula 3.00 11/10/17 15:40 97.0 82 16 126/71 (89) 95 Nasal Cannula 3.00 I & O 11/11/17 07:00 Intake Total 1620 ml Balance 1620 ml Capillary Refill : Less Than 3 Seconds General Appearance: No Apparent Distress, WD/WN HEENT: Normal ENT Inspection Neck: Normal Inspection, Non Tender Respiratory: No Accessory Muscle Use, No Respiratory Distress, Decreased Breath Sounds Cardiovascular: Regular Rate, Rhythm, No Murmur Gastrointestinal: non tender, soft Results Lab Laboratory Tests 11/11/17 05:00 Laboratory Tests 11/11/17 05:00: White Blood Count 10.2, Red Blood Count 3.87L, Hemoglobin 11.8, Hematocrit 35, Mean Corpuscular Volume 91, Mean Corpuscular Hemoglobin 30, Mean Corpuscular Hemoglobin Concent 33, Red Cell Distribution Width 13.3, Platelet Count 187, Mean Platelet Volume 9.7, Neutrophils (%) (Auto) 83H, Lymphocytes (%) (Auto) 6L , Monocytes (%) (Auto) 8, Eosinophils (%) (Auto) 3, Basophils (%) (Auto) 0, Neutrophils # (Auto) 8.5H, Lymphocytes # (Auto) 0.6L, Monocytes # (Auto) 0.8, Eosinophils # (Auto) 0.3, Basophils # (Auto) 0.0, Sodium Level 134L, Potassium Level 4.2, Chloride Level 100, Carbon Dioxide Level 29, Anion Gap 5, Blood Urea Nitrogen 10, Creatinine 0.55L, Estimat Glomerular Filtration Rate > 60, BUN/ Creatinine Ratio 18, Glucose Level 119H, Calcium Level 8.5, Phosphorus Level 3.3 , Magnesium Level 1.9 Microbiology 11/04/17 Mycobacterial Culture - Preliminary, Resulted Assessment/Plan Assessment/Plan Assess & Plan/Chief Complaint Short of breath. Acute and chronic respiratory failure. Diastolic congestive heart failure Coronary artery disease. Recent myocardial infarction. Debility. Hypoxia. Chronic eosinophil pneumonia. Hyponatremia. . 11/04/17. Patient had bronchoscopy this morning. Shortness of breath better. Acute and chronic respiratory failure. Diastolic congestive heart failure. Coronary artery disease. Recent myocardial infarction. Debility. Hyponatremia. Patient feeling better this morning. . 11/05/17. Patient feeling better this morning. Short of breath. Acute and chronic respiratory failure. Hyponatremia resolved. Diastolic congestive heart failure. Coronary artery disease. Recent myocardial infarction. Debility. Sputum staph aureus and Malena.. . 11/06/17. Patient had 2 episodes last night of desaturation. Patient gets short of breath when picking up a couple of water very Bronchial lavage shows staph aureus and Malena. . 11/07/17. Malena of tongue. Nystatin has helped according to patient. Recent SD. Debility. Patient feels she's doing a little better today. 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 Chronic respiratory failure. Diastolic congestive heart failure. Coronary artery disease. Hypoxia. Hyponatremia. . 11/10/17. CHF. Coronary artery disease. Thrush in mouth. Recent SD. Chronic respiratory failure. Diastolic congestive heart failure. Hypoxia. Hyponatremia. . 11/11/17 CHF. Coronary artery disease. Thrush in mouth. Recent SD. Chronic respiratory failure. Diastolic congestive heart failure. Hypoxia. Hypomagnesemia. Patient still a work in progress Clinical Quality Measures DVT/VTE Risk/Contraindication: Risk Factor Score Per Nursin RFS Level Per Nursing on Admit: 2=Moderate ABRAM BRITT DO Nov 11, 2017 08:10
[2017-11-11] MEDS: RT-ALBUTEROL/IPRATROPIUM 3 ML (DUONEB) VIAL INH SCH ×2 (08:44→19:36)
[2017-11-11] MEDS: RT-ADVAIR HFA 115/21 MCG PER PUFF IH SCH ×2 (08:44→19:36)
[2017-11-11] MEDS: VENlafaxine 37.5 MG (EFFEXOR) TAB PO SCH (08:57)
[2017-11-11] MEDS: LORATADINE (CLARITIN) 10 MG TAB PO SCH (08:57)
[2017-11-11] MEDS: DOCUSATE SODIUM 100 MG (COLACE) CAP PO SCH ×2 (08:57→21:00)
[2017-11-11] MEDS: CLOPIDOGREL 75 MG (PLAVIX) TABLET PO SCH (08:57)
[2017-11-11] MEDS: BENZONATATE 100 MG (TESSALON) CAPSULE PO SCH ×3 (08:58→21:00)
[2017-11-11] MEDS: LACTULOSE SYRUP 10GM/15ML (ENULOSE) 30ML UDC PO SCH ×2 (08:58→21:00)
[2017-11-11] MEDS: ASPIRIN 81 MG CHEW (CHILDREN'S ASA) PO SCH (08:58)
[2017-11-11] MEDS: ENOXAPARIN 40 MG/0.4 ML (LOVENOX) SYR SC SCH (08:58)
[2017-11-11] MEDS: ANIDULAFUNGIN IV SCH (09:07)
[2017-11-11] MEDS: D5W IV SCH (09:07)
--- NOTE | 2017-11-11 10:07 | Progress Note-Cardiology ---
Cardiology SOAP Progress Note Subjective: Sitting up in a chair at the bedside. Feels SOB is unchanged from yesterday. Reports worsening dyspnea with any exertion requiring oxygen to be increased to 5-6L/NC. Objective: I&O/Vital Signs 11/11/17 11/11/17 11/11/17 11/11/17 03:53 07:54 08:00 08:45 Temp 97.0 99.1 Pulse 79 86 Resp 16 16 B/P (MAP) 112/74 (87) 106/67 (80) Pulse Ox 96 97 97 O2 Delivery Nasal Cannula Nasal Cannula Nasal Cannula Nasal Cannula O2 Flow Rate 3.00 3.00 3.00 5.00 11/11/17 00:00 Intake Total 1370 ml Balance 1370 ml Weight (Pounds): 134 Weight (Ounces): 2.0 Weight (Calculated Kilograms): 60.352751 Constitutional: AAO x 3, well-developed, other Respiratory: No accessory muscle use; other (Fair bilat air entry, coarse basal crackles) Cardiovascular: regular rate-rhythm, S1 and S2, systolic murmur (soft CEDRICK at card base) Gastrointestional: No tender; soft; No guarding, No rebound; audible bowel sounds Extremities: No clubbing, No cyanosis, No significant edema Neurologic/Psychiatric: oriented x 3, grossly intact, power is 5/5 both on sides Skin: No rash on exposed areas, No ulcerations on exposed areas Results/Procedures: Labs Laboratory Tests 11/11/17 05:00: White Blood Count 10.2, Red Blood Count 3.87L, Hemoglobin 11.8, Hematocrit 35, Mean Corpuscular Volume 91, Mean Corpuscular Hemoglobin 30, Mean Corpuscular Hemoglobin Concent 33, Red Cell Distribution Width 13.3, Platelet Count 187, Mean Platelet Volume 9.7, Neutrophils (%) (Auto) 83H, Lymphocytes (%) (Auto) 6L , Monocytes (%) (Auto) 8, Eosinophils (%) (Auto) 3, Basophils (%) (Auto) 0, Neutrophils # (Auto) 8.5H, Lymphocytes # (Auto) 0.6L, Monocytes # (Auto) 0.8, Eosinophils # (Auto) 0.3, Basophils # (Auto) 0.0, Sodium Level 134L, Potassium Level 4.2, Chloride Level 100, Carbon Dioxide Level 29, Anion Gap 5, Blood Urea Nitrogen 10, Creatinine 0.55L, Estimat Glomerular Filtration Rate > 60, BUN/ Creatinine Ratio 18, Glucose Level 119H, Calcium Level 8.5, Phosphorus Level 3.3 , Magnesium Level 1.9 Microbiology 11/04/17 Mycobacterial Culture - Preliminary, Resulted Procedures NAME: LEYLA CASTELLANO [facility] REC#: [id number] PT STATUS: ADM IN : 1945 PHYSICIAN: ZHANNA CARMONA DO ADMIT DATE: 10/31/17 Draft Date of Exam:11/11/17 CHEST 1 VIEW, AP/PA ONLY INDICATION: CHF, hypoxia. COMPARISON: 11/10/2017. FINDINGS: Single view of the chest demonstrates stable cardiac enlargement with unchanged bilateral interstitial infiltrates. No pneumothorax or large effusion is seen. Osseous structures are stable. IMPRESSION: Unchanged aeration of the lungs. Dictated on workstation # [id number] Dict: 11/11/17 0711 Trans: 11/11/17 [id number] Interpreted by: TRAVIS SAN Electronically signed by: A/P: Assessment: Ac on chronic resp failure, multifactorial (see below) Ac on chronic diastolic CHF - clinically improved Interstitial lung disease. Bibasilar pulmonary infiltrates during hosp of July and August 2017: CHF vs atelectasis vs pneumonia; unchanged on CT of 08/25/17. 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 Last CT chest of 10/09/17 showed some improvement of ground glass infiltrates and no new abnormality Hyponatremia, likely related to diuretic therapy - resolved Coronary artery disease, status post cardiac catheterization done by Dr. 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 There is no significant residual stenosis in the right coronary artery and the flow was normal, but right ventricular branch was lost during the procedure due to infarct-related thrombus. A 90% to 95% stenosis of the proximal left circumflex artery, which was treated with stenting with Alpine Xience 2.25 x 12 mm stent with reduction of stenosis to 0% residual. The left anterior descending artery has diffuse [id number] disease Relative hypotension, improved after d/c bb and BRETT-inhibitor Echo of 11/01/17: LVEF 50-55%, grade I rouse dysfunction, no significant pericard eff or valvular heart disease, PASP 25-30 mmHg Well preserved global left ventricular systolic function with ejection fraction 60%, postero-basal hypokinesis, no significant mitral regurgitation and mild elevation of left ventricular end-diastolic pressure on LHC of 08/04/17 TSH 0.26 on lab of 08-05-17 - suggestive of hyperthyroidism Elevated ESR, followed and treated by Pulm and Med Svce Plan: * Complex management due to multiple comorbidities * ILD treated with steroids * Monitor labs * Continue dual antiplatelet therapy * CXR does not show CHF, but continues to show bibasilar infiltrates * Tolerating BB Physician Assessment Physician Assessment Notes gen weakness and tiredness. Short of breath with small amount of exertion. Denies cp or palp or syncope Lungs: good air entry, but diminished at the bases Cor: reg Ext: no c/c/e A&R * As documented in our note above that I updated (italics) and as noted below * Continue current therapy * Monitor labs ABHISHEK BANDA Nov 11, 2017 10:07 LIZY SCHUMACHER MD [facility] Nov 11, 2017 15:05
--- NOTE | 2017-11-11 11:44 | Physical Therapy Daily Note ---
PT Daily Note-Current Subjective Patient agrees to PT. Pain Numeric Pain Scale: 0-No Pain Location: No Pain Reported Mental Status Patient Orientation: Normal For Age Attachments: Oxygen, IV Transfers Functional Dyer Measure 0=Not Assessed/NA 4=Minimal Assistance 1=Total Assistance 5=Supervision or Setup 2=Maximal Assistance 6=Modified Dyer 3=Moderate Assistance 7=Complete IndependenceIRFPAI Quality Coding Scale 6 Independent with activity with or without an assistive device 5 Patient requires set up or clean up by helper. Patient completes activity by themselves 4 Supervision or touching assist (CGA). Oakley provide cues , steadying assist 3 The helper provides less than half the effort to complete the activity 2 The helper provides more than half the effort to complete the activity 1 Dependent. The helper does all the effort to complete an activity 7 Patient refused to complete or attempt activity 9 The patient did not perform the activity before the current illness or injury 88 Not attempted due to Medical conditions or safety concerns Transfers (B, C, W/C) (FIM): 6 Scootin Sit to/from Stand: 6 Weight Bearing Right Lower Extremity: Right Full Weight Bearing Left Lower Extremity: Left Full Weight Bearing Gait Training Gait (FIM): 6 Distance (FIM): 3=150 ft Distance: 175' Gait Level of Assist: 6 Gait Assistive Device: FWW safe and functional Assessment Patient progressing with treatment plan and ambulates PRN in hallway with nursing staff and family. PT Plan Treatment/Plan Treatment Plan: Continue Plan of Care Treatment Plan: Education, Functional Activity Herb, Functional Strength, Gait , Safety, Therapeutic Exercise, Transfers Treatment Duration: Nov 21, 2017 Frequency: 6 times per week Estimated Hrs Per Day: .5 hour per day Patient and/or Family Agrees t: Yes Time/GCodes Time In: 1046 Time Out: 1056 Total Billed Treatment Time: 10 Total Billed Treatment 1 visit FA 10 min SOFIE SIMMONS PT Nov 11, 2017 11:44
--- NOTE | 2017-11-11 14:20 | Occupational Ther Daily Note ---
OT Current Status-Daily Note Subjective Pt seen in room, up in recliner, agreeable to OT. No pain mentioned. Appearance Alert, cooperative Mental Status/Objective Functional Anderson Measure 0=Not Assessed/NA 4=Minimal Assistance 1=Total Assistance 5=Supervision or Setup 2=Maximal Assistance 6=Modified Anderson 3=Moderate Assistance 7=Complete Anderson Other Treatment O2 set on 3L/min nc and she said she has to increase it if she goes to the bathroom. Pt reported that she has already done her UE exercises with theraband and plans to do another set this afternoon. Pt provided with written information on energy conservation. Pt described several ways that she has modified activities at home to conserve her energy for ADLs. Pt left up in recliner, all needs met. Education OT Patient Education: Energy conservation, Purpose of tx/functional activities Teaching Recipient: Patient Teaching Methods: Discussion Response to Teaching: Verbalize Understanding OT Short Term Goals Short Term Goals 1=Demonstrate adherence to instructed precautions during ADL tasks. 2=Patient will verbalize/demonstrate understanding of assistive devices/ modifications for ADL. 3=Patient will improve strength/tolerance for activity to enable patient to perform ADL's. OT Galvanizer Zinc Goals Usp Goals Time Frame: Nov 17, 2017 Eating (FIM): 6 Grooming(FIM): 6 Bathing(FIM): 5 Upper Body Dressing(FIM): 6 Lower Body Dressing(FIM): 5 Toileting(FIM): 6 Transfers (B,C,W/C) (FIM): 6 Toilet/Commode Transfer(FIM): 6 Shower Transfer(FIM): 5 Additional Goals: 1-Demonstrate ADL Tasks, 2-Verbalize Understanding, 3- ImproveStrength/Herb 1=Demonstrate adherence to instructed precautions during ADL tasks. 2=Patient will verbalize/demonstrate understanding of assistive devices/ modifications for ADL. 3=Patient will improve strength/tolerance for activity to enable patient to perform ADL's. OT Education/Plan Discharge Recommendations Plan/Recommendations: Continue POC Treatment Plan/Plan of Care Patient would benefit from OT for education, treatment and training to promote independence in ADL's, mobility, safety and/or upper extremity function for ADL' s. Plan of Care: ADL Retraining, Functional Mobility, UE Funct Exercise/Act Treatment Duration: Nov 17, 2017 Frequency: 5 times per week Estimated Hrs Per Day: .25 hour per day Agreement: Yes Rehab Potential: Fair Time/GCodes Start Time: 13:15 Stop Time: 13:29 Total Time Billed (hr/min): 14 Billed Treatment Time visit, 14 minutes FER OTERO OT Nov 11, 2017 14:20
[2017-11-11 15:30] VITALS: BP 117/69
[2017-11-11] MEDS: CALCIUM CARB + VIT D 600 MG (CALCARB + D) TAB PO SCH (21:00)
[2017-11-11] MEDS: ATORVASTATIN 80 MG (LIPITOR) TABLET PO SCH (21:00)
[2017-11-11] MEDS ORDERED: NS (IVPB) 50 ML ONE (21:46)
[2017-11-12] VITALS: BP 120/60
[2017-11-12 05:52] LABS: BASOPHILS % (AUTO) 0 % (0-10); EOSINOPHILS # (AUTO) 0.2 10^3/uL (0.0-0.3); EOSINOPHILS % (AUTO) 2 % (0-10); HEMATOCRIT 36 % (35-52); HEMOGLOBIN 12.3 G/DL (11.5-16.0); LYMPHOCYTES # (AUTO) 0.5 X 10^3 (1.0-4.0); LYMPHOCYTES % (AUTO) 5 % (12-44); MEAN CORPUSCULAR HEMOGLOBIN 31 PG (25-34); MEAN CORPUSCULAR HGB CONC 34 G/DL (32-36); MEAN CORPUSCULAR VOLUME 91 FL (80-99); MEAN PLATELET VOLUME 9.8 FL (7.4-10.4); MONOCYTES % (AUTO) 8 % (0-12); NEUTROPHILS # (AUTO) 10.1 X 10^3 (1.8-7.8); NEUTROPHILS % (AUTO) 85 % (42-75); PLATELET COUNT 166 10^3/uL (130-400); RED BLOOD COUNT 3.93 10^6/uL (4.35-5.85); RED CELL DISTRIBUTION WIDTH 13.3 % (10.0-14.5); WHITE BLOOD COUNT 11.8 10^3/uL (4.3-11.0)
[2017-11-12] MEDS: PANTOPRAZOLE 40 MG (PROTONIX) TAB PO SCH (06:17)
[2017-11-12] MEDS: KCL 20 MEQ TAB (K-DUR) PO SCH (06:17)
[2017-11-12] MEDS: NYSTATIN ORAL SUSP 5 ML UDC PO SCH (06:17)
[2017-11-12] MEDS: LEVOTHYROXINE 75 MCG (LEVOTHROID) TABLET PO SCH (06:17)
[2017-11-12] MEDS: predniSONE 10 MG TAB PO SCH (06:17)
[2017-11-12] MEDS: ceFAZolin INJECTION 1,000 MG in NS (IVPB) 50 ML IV SCH (06:17)
--- NOTE | 2017-11-12 07:03 | Pulmonary Progress Note ---
Subjective Time Seen by Provider: 07:03 Exam Exam Vital Signs Date Time Temp Pulse Resp B/P (MAP) Pulse Ox O2 Delivery O2 Flow Rate FiO2 11/12/17 00:00 98.3 74 18 120/60 (80) 100 Nasal Cannula 3.00 11/11/17 19:50 100 Nasal Cannula 3.00 11/11/17 19:41 Nasal Cannula 3.00 11/11/17 19:36 93 Nasal Cannula 3.00 11/11/17 15:30 97.4 78 20 117/69 (85) 97 Nasal Cannula 3.00 11/11/17 08:45 97 Nasal Cannula 5.00 11/11/17 08:00 Nasal Cannula 3.00 11/11/17 07:54 99.1 86 16 106/67 (80) 97 Nasal Cannula 3.00 I & O 11/12/17 07:00 Intake Total 1290 ml Balance 1290 ml General Appearance: No Apparent Distress, WD/WN HEENT: Normal ENT Inspection Neck: Normal Inspection, Non Tender Respiratory: No Accessory Muscle Use, No Respiratory Distress, Decreased Breath Sounds Cardiovascular: Regular Rate, Rhythm, No Murmur Capillary Refill: Less Than 3 Seconds Gastrointestinal: non tender, soft Extremity: Normal Inspection, No Calf Tenderness, No Pedal Edema Neurologic/Psychiatric: Alert, Oriented x3 Skin: Normal Color, Warm/Dry Lymphatic: No Adenopathy Results Lab Laboratory Tests 11/11/17 05:00 11/12/17 05:36 Assessment/Plan Assessment/Plan Acute on chronic respiratory failure -Lasix was stopped on Friday -repeat BNP -Prednisone has been titrated down to 30mg daily -Continue to monitor close -SVNs ILD-- Pt has heavy black mold in her house. -CT scan reviewed and shows ILD with traction bronchiectasis -s/p bronchoscopy -- BAL shows MSSA and candidiasis - Ancef and Eraxis -Pt's is planning on getting black mold cleaned up - I recommend professional acid tank cleaner for mold removal CHFAE - hx of diastolic CHF EF 60% CAD with recent [facility] debility/weakness -PT/OT 232 JUANA WILLS DO Nov 12, 2017 07:03
[2017-11-12] MEDS: RT-ALBUTEROL/IPRATROPIUM 3 ML (DUONEB) VIAL INH SCH (08:11)
[2017-11-12] MEDS: RT-ADVAIR HFA 115/21 MCG PER PUFF IH SCH (08:11)
--- NOTE | 2017-11-12 08:12 | Progress Note (SOAP) ---
Subjective Time Seen by Provider: 08:05 Subjective/Events-last exam Patient slowly improving. When patient exerts has to increase her oxygen. Patient functioning better. To transfer to swing bed today Objective Exam Vital Signs Date Time Temp Pulse Resp B/P (MAP) Pulse Ox O2 Delivery O2 Flow Rate FiO2 11/12/17 00:00 98.3 74 18 120/60 (80) 100 Nasal Cannula 3.00 11/11/17 19:50 100 Nasal Cannula 3.00 11/11/17 19:41 Nasal Cannula 3.00 11/11/17 19:36 93 Nasal Cannula 3.00 11/11/17 15:30 97.4 78 20 117/69 (85) 97 Nasal Cannula 3.00 11/11/17 08:45 97 Nasal Cannula 5.00 I & O 11/12/17 07:00 Intake Total 1690 ml Balance 1690 ml Capillary Refill : Less Than 3 Seconds General Appearance: No Apparent Distress HEENT: Normal ENT Inspection Neck: Normal Inspection Respiratory: No Accessory Muscle Use, No Respiratory Distress Cardiovascular: Regular Rate, Rhythm, No Murmur Gastrointestinal: non tender, soft Results Lab Laboratory Tests 11/12/17 05:36 Laboratory Tests 11/12/17 05:36: White Blood Count 11.8H, Red Blood Count 3.93L, Hemoglobin 12.3, Hematocrit 36, Mean Corpuscular Volume 91, Mean Corpuscular Hemoglobin 31, Mean Corpuscular Hemoglobin Concent 34, Red Cell Distribution Width 13.3, Platelet Count 166, Mean Platelet Volume 9.8, Neutrophils (%) (Auto) 85H, Lymphocytes (%) (Auto) 5L , Monocytes (%) (Auto) 8, Eosinophils (%) (Auto) 2, Basophils (%) (Auto) 0, Neutrophils # (Auto) 10.1H, Lymphocytes # (Auto) 0.5L, Monocytes # (Auto) 1.0, Eosinophils # (Auto) 0.2, Basophils # (Auto) 0.0 Microbiology 11/04/17 Mycobacterial Culture - Preliminary, Resulted Assessment/Plan Assessment/Plan Assess & Plan/Chief Complaint Short of breath. Acute and chronic respiratory failure. Diastolic congestive heart failure Coronary artery disease. Recent myocardial infarction. Debility. Hypoxia. Chronic eosinophil pneumonia. Hyponatremia. . 11/04/17. Patient had bronchoscopy this morning. Shortness of breath better. Acute and chronic respiratory failure. Diastolic congestive heart failure. Coronary artery disease. Recent myocardial infarction. Debility. Hyponatremia. Patient feeling better this morning. . 11/05/17. Patient feeling better this morning. Short of breath. Acute and chronic respiratory failure. Hyponatremia resolved. Diastolic congestive heart failure. Coronary artery disease. Recent myocardial infarction. Debility. Sputum staph aureus and Malena.. . 11/06/17. Patient had 2 episodes last night of desaturation. Patient gets short of breath when picking up a couple of water very Bronchial lavage shows staph aureus and Malena. . 11/07/17. Malena of tongue. Nystatin has helped according to patient. Recent [place]. Debility. Patient feels she's doing a little better today. Patient able to eat without shortness of breath or Patient able to parts picker a cup of water without getting short of breath. Chronic respiratory failure. Diastolic congestive heart failure. Coronary artery disease. Hypoxia. Hyponatremia. . 11/10/17. CHF. Coronary artery disease. Thrush in mouth. Recent [place]. Chronic respiratory failure. Diastolic congestive heart failure. Hypoxia. Hyponatremia. . 11/11/17 CHF. Coronary artery disease. Thrush in mouth. Recent [place]. Chronic respiratory failure. Diastolic congestive heart failure. Hypoxia. Hypomagnesemia. Patient still a work in progress. . 11/12/17 CHF. Coronary artery disease. Thrush in mouth better. Recent [place]. Chronic respiratory failure. Diastolic congestive heart failure. Hypoxia. Patient to go to swing bed today. Patient gets short of breath with walking and has to increase her oxygen. Patient is improving Clinical Quality Measures DVT/VTE Risk/Contraindication: Risk Factor Score Per Nursin RFS Level Per Nursing on Admit: 2=Moderate ABRAM BIRTT DO Nov 12, 2017 08:12
--- NOTE | 2017-11-14 07:28 | Discharge Summary ---
Diagnosis/Chief Complaint Date of Admission Oct 31, 2017 at 23:00 Date of Discharge Nov 12, 2017 at 08:14 Discharge Date: Nov 12, 2017 Discharge Time: 07:20 Discharge Diagnosis Short of breath. Acute and chronic respiratory failure. Mana artery disease. Malena albicans. Staph aureus. COPD. Coronary artery disease. Discussion lung disease. Hypertension. Discharge Summary Procedures Bronchoscopy Consultations Pulmonology. Cardiology Discharge Physical Examination Allergies: Coded Allergies: No Known Drug Allergies (Unverified , 08/03/17) Vitals & I&Os Vital Signs Date Time Temp Pulse Resp B/P (MAP) Pulse Ox O2 Delivery O2 Flow Rate FiO2 11/12/17 08:19 Nasal Cannula 3.00 11/12/17 08:11 92 11/12/17 00:00 98.3 74 18 120/60 (80) Hospital Course Labs (last 24 hrs) Laboratory Tests 10/31/17 22:15: White Blood Count 8.0, Red Blood Count 3.91L, Hemoglobin 12.5, Hematocrit 36, Mean Corpuscular Volume 92, Mean Corpuscular Hemoglobin 32, Mean Corpuscular Hemoglobin Concent 35, Red Cell Distribution Width 13.3, Platelet Count 195, Mean Platelet Volume 10.1, Neutrophils (%) (Auto) 76H, Lymphocytes (%) (Auto) 14 , Monocytes (%) (Auto) 10, Eosinophils (%) (Auto) 0, Basophils (%) (Auto) 0, Neutrophils # (Auto) 6.1, Lymphocytes # (Auto) 1.1, Monocytes # (Auto) 0.8, Eosinophils # (Auto) 0.0, Basophils # (Auto) 0.0, Prothrombin Time 15.4H, INR Comment 1.2, Activated Partial Thromboplast Time 28, Sodium Level 137, Potassium Level 4.6, Chloride Level 102, Carbon Dioxide Level 26, Anion Gap 9, Blood Urea Nitrogen 14, Creatinine 0.69, Estimat Glomerular Filtration Rate > 60 , BUN/Creatinine Ratio 20, Glucose Level 139H, Calcium Level 9.0, Magnesium Level 2.1, Total Bilirubin 0.5, Aspartate Amino Transf (AST/SGOT) 28, Alanine Aminotransferase (ALT/SGPT) 30, Alkaline Phosphatase 60, Total Creatine Kinase 47, Creatine Kinase MB 1.5, Troponin I < 0.30, B-Type Natriuretic Peptide 277.0H , Total Protein 6.7, Albumin 3.5, Amylase Level 40, Lipase 20 10/31/17 22:25: Blood Gas Puncture Site LEFT RADIAL, Blood Gas Patient Temperature 98.7, Arterial Blood pH 7.46H, Arterial Blood Partial Pressure CO2 41, Arterial Blood Partial Pressure O2 192H, Arterial Blood HCO3 29H, Arterial Blood Total CO2 29.9 , Arterial Blood Oxygen Saturation 100, Arterial Blood Base Excess 4.8H, Corey Test POSITIVE, Blood Gas Ventilator Setting NO, Blood Gas Inspired Oxygen 10L 10/31/17 23:00: Lab Scanned Report Referred Lab Report 11/01/17 04:35: Sodium Level 137, Potassium Level 3.7, Chloride Level 97L, Carbon Dioxide Level 25, Anion Gap 15H, Blood Urea Nitrogen 17, Creatinine 0.73, Estimat Glomerular Filtration Rate > 60, BUN/Creatinine Ratio 23, Glucose Level 215H, Calcium Level 9.2, Total Bilirubin 0.6, Aspartate Amino Transf (AST/SGOT) 29, Alanine Aminotransferase (ALT/SGPT) 34, Alkaline Phosphatase 65, Troponin I < 0.30, Total Protein 7.4, Albumin 3.8 11/01/17 04:55: White Blood Count 8.2, Red Blood Count 4.42, Hemoglobin 13.3, Hematocrit 40, Mean Corpuscular Volume 91, Mean Corpuscular Hemoglobin 30, Mean Corpuscular Hemoglobin Concent 33, Red Cell Distribution Width 13.5, Platelet Count 209, Mean Platelet Volume 10.5H, Neutrophils (%) (Auto) 93H, Lymphocytes (%) (Auto) 6L, Monocytes (%) (Auto) 1, Eosinophils (%) (Auto) 0, Basophils (%) (Auto) 0, Neutrophils # (Auto) 7.6, Lymphocytes # (Auto) 0.5L, Monocytes # (Auto) 0.1, Eosinophils # (Auto) 0.0, Basophils # (Auto) 0.0, Neutrophils % (Manual) 97, Lymphocytes % (Manual) 2, Monocytes % (Manual) 1, Eosinophils % (Manual) 0, Basophils % (Manual) 0, Band Neutrophils 0, Poikilocytosis SLIGHT, Elliptocytes SLIGHT, Phosphorus Level 3.8, Magnesium Level 1.9 11/02/17 03:20: White Blood Count 9.3, Red Blood Count 4.09L, Hemoglobin 12.9, Hematocrit 37, Mean Corpuscular Volume 90, Mean Corpuscular Hemoglobin 32, Mean Corpuscular Hemoglobin Concent 35, Red Cell Distribution Width 13.1, Platelet Count 202, Mean Platelet Volume 10.6H, Neutrophils (%) (Auto) 90H, Lymphocytes (%) (Auto) 6L, Monocytes (%) (Auto) 4, Eosinophils (%) (Auto) 0, Basophils (%) (Auto) 0, Neutrophils # (Auto) 8.3H, Lymphocytes # (Auto) 0.5L, Monocytes # (Auto) 0.4, Eosinophils # (Auto) 0.0, Basophils # (Auto) 0.0, Phosphorus Level 3.4, Magnesium Level 1.9, Sodium Level 130L, Potassium Level 3.7, Chloride Level 92L , Carbon Dioxide Level 24, Anion Gap 14, Blood Urea Nitrogen 18, Creatinine 0.70 , Estimat Glomerular Filtration Rate > 60, BUN/Creatinine Ratio 26, Glucose Level 208H, Calcium Level 9.4 11/02/17 08:58: Blood Gas Puncture Site LT RAD, Blood Gas Patient Temperature 96.9, Arterial Blood pH 7.50H, Arterial Blood Partial Pressure CO2 37, Arterial Blood Partial Pressure O2 97H, Arterial Blood HCO3 29H, Arterial Blood Total CO2 30.5, Arterial Blood Oxygen Saturation 99, Arterial Blood Base Excess 5.8H, Corey Test YES-POS, Blood Gas Ventilator Setting NO, Blood Gas Inspired Oxygen 10L AND 45% 11/03/17 03:00: White Blood Count 8.8, Red Blood Count 3.93L, Hemoglobin 12.1, Hematocrit 35, Mean Corpuscular Volume 89, Mean Corpuscular Hemoglobin 31, Mean Corpuscular Hemoglobin Concent 35, Red Cell Distribution Width 13.1, Platelet Count 212, Mean Platelet Volume 10.2, Neutrophils (%) (Auto) 87H, Lymphocytes (%) (Auto) 6L , Monocytes (%) (Auto) 7, Eosinophils (%) (Auto) 0, Basophils (%) (Auto) 0, Neutrophils # (Auto) 7.6, Lymphocytes # (Auto) 0.5L, Monocytes # (Auto) 0.7, Eosinophils # (Auto) 0.0, Basophils # (Auto) 0.0, Phosphorus Level 3.1, Magnesium Level 2.1, Sodium Level 129L, Potassium Level 3.7, Chloride Level 90L , Carbon Dioxide Level 27, Anion Gap 12, Blood Urea Nitrogen 18, Creatinine 0.65 , Estimat Glomerular Filtration Rate > 60, BUN/Creatinine Ratio 28, Glucose Level 222H, Calcium Level 8.7, B-Type Natriuretic Peptide 135.1H 11/04/17 03:25: White Blood Count 6.1, Red Blood Count 3.91L, Hemoglobin 12.2, Hematocrit 35, Mean Corpuscular Volume 90, Mean Corpuscular Hemoglobin 31, Mean Corpuscular Hemoglobin Concent 35, Red Cell Distribution Width 12.9, Platelet Count 204, Mean Platelet Volume 10.5H, Neutrophils (%) (Auto) 87H, Lymphocytes (%) (Auto) 6L, Monocytes (%) (Auto) 7, Eosinophils (%) (Auto) 0, Basophils (%) (Auto) 0, Neutrophils # (Auto) 5.3, Lymphocytes # (Auto) 0.4L, Monocytes # (Auto) 0.4, Eosinophils # (Auto) 0.0, Basophils # (Auto) 0.0, Sodium Level 134L, Potassium Level 4.0, Chloride Level 99, Carbon Dioxide Level 25, Anion Gap 10, Blood Urea Nitrogen 12, Creatinine 0.60, Estimat Glomerular Filtration Rate > 60, BUN/ Creatinine Ratio 20, Glucose Level 224H, Calcium Level 8.4L, Phosphorus Level 2.7, Magnesium Level 2.2 11/05/17 03:50: White Blood Count 8.6, Red Blood Count 4.06L, Hemoglobin 12.4, Hematocrit 37, Mean Corpuscular Volume 91, Mean Corpuscular Hemoglobin 31, Mean Corpuscular Hemoglobin Concent 34, Red Cell Distribution Width 13.2, Platelet Count 238, Mean Platelet Volume 10.2, Neutrophils (%) (Auto) 90H, Lymphocytes (%) (Auto) 4L , Monocytes (%) (Auto) 6, Eosinophils (%) (Auto) 0, Basophils (%) (Auto) 0, Neutrophils # (Auto) 7.7, Lymphocytes # (Auto) 0.4L, Monocytes # (Auto) 0.5, Eosinophils # (Auto) 0.0, Basophils # (Auto) 0.0, Sodium Level 135, Potassium Level 3.9, Chloride Level 99, Carbon Dioxide Level 28, Anion Gap 8, Blood Urea Nitrogen 13, Creatinine 0.61, Estimat Glomerular Filtration Rate > 60, BUN/ Creatinine Ratio 21, Glucose Level 203H, Calcium Level 8.3L, Phosphorus Level 2.7, Magnesium Level 2.2, Neutrophils % (Manual) 92, Lymphocytes % (Manual) 3, Monocytes % (Manual) 5, Eosinophils % (Manual) 0, Basophils % (Manual) 0, Band Neutrophils 0, Poikilocytosis SLIGHT, Tear Drop Cells SLIGHT, Elliptocytes SLIGHT 11/06/17 03:10: White Blood Count 6.8, Red Blood Count 3.98L, Hemoglobin 12.5, Hematocrit 36, Mean Corpuscular Volume 91, Mean Corpuscular Hemoglobin 31, Mean Corpuscular Hemoglobin Concent 35, Red Cell Distribution Width 13.0, Platelet Count 216, Mean Platelet Volume 10.4, Neutrophils (%) (Auto) 87H, Lymphocytes (%) (Auto) 7L , Monocytes (%) (Auto) 6, Eosinophils (%) (Auto) 0, Basophils (%) (Auto) 0, Neutrophils # (Auto) 5.9, Lymphocytes # (Auto) 0.5L, Monocytes # (Auto) 0.4, Eosinophils # (Auto) 0.0, Basophils # (Auto) 0.0, Sodium Level 134L, Potassium Level 3.7, Chloride Level 99, Carbon Dioxide Level 25, Anion Gap 10, Blood Urea Nitrogen 18, Creatinine 0.62, Estimat Glomerular Filtration Rate > 60, BUN/ Creatinine Ratio 29, Glucose Level 284H, Calcium Level 8.3L, Phosphorus Level 2.8, Magnesium Level 2.0 11/06/17 09:10: B-Type Natriuretic Peptide 392.2H 11/07/17 04:35: White Blood Count 9.7, Red Blood Count 4.04L, Hemoglobin 12.5, Hematocrit 37, Mean Corpuscular Volume 91, Mean Corpuscular Hemoglobin 31, Mean Corpuscular Hemoglobin Concent 34, Red Cell Distribution Width 13.3, Platelet Count 222, Mean Platelet Volume 10.2, Neutrophils (%) (Auto) 89H, Lymphocytes (%) (Auto) 5L , Monocytes (%) (Auto) 6, Eosinophils (%) (Auto) 0, Basophils (%) (Auto) 0, Neutrophils # (Auto) 8.7H, Lymphocytes # (Auto) 0.4L, Monocytes # (Auto) 0.6, Eosinophils # (Auto) 0.0, Basophils # (Auto) 0.0, Sodium Level 133L, Potassium Level 3.7, Chloride Level 97L, Carbon Dioxide Level 27, Anion Gap 9, Blood Urea Nitrogen 18, Creatinine 0.64, Estimat Glomerular Filtration Rate > 60, BUN/ Creatinine Ratio 28, Glucose Level 251H, Calcium Level 8.4L, Phosphorus Level 4.3, Magnesium Level 2.3 11/08/17 04:34: White Blood Count 9.3, Red Blood Count 4.11L, Hemoglobin 12.8, Hematocrit 37, Mean Corpuscular Volume 91, Mean Corpuscular Hemoglobin 31, Mean Corpuscular Hemoglobin Concent 34, Red Cell Distribution Width 13.0, Platelet Count 237, Mean Platelet Volume 10.0, Neutrophils (%) (Auto) 86H, Lymphocytes (%) (Auto) 7L , Monocytes (%) (Auto) 7, Eosinophils (%) (Auto) 0, Basophils (%) (Auto) 0, Neutrophils # (Auto) 7.9H, Lymphocytes # (Auto) 0.6L, Monocytes # (Auto) 0.7, Eosinophils # (Auto) 0.0, Basophils # (Auto) 0.0, Sodium Level 135, Potassium Level 4.3, Chloride Level 99, Carbon Dioxide Level 27, Anion Gap 9, Blood Urea Nitrogen 17, Creatinine 0.59L, Estimat Glomerular Filtration Rate > 60, BUN/ Creatinine Ratio 29, Glucose Level 207H, Calcium Level 8.4L, Phosphorus Level 3.7, Magnesium Level 2.3 11/09/17 04:35: White Blood Count 10.4, Red Blood Count 4.23L, Hemoglobin 12.8, Hematocrit 38, Mean Corpuscular Volume 91, Mean Corpuscular Hemoglobin 30, Mean Corpuscular Hemoglobin Concent 33, Red Cell Distribution Width 13.3, Platelet Count 237, Mean Platelet Volume 9.5, Neutrophils (%) (Auto) 78H, Lymphocytes (%) (Auto) 9L , Monocytes (%) (Auto) 9, Eosinophils (%) (Auto) 4, Basophils (%) (Auto) 0, Neutrophils # (Auto) 8.1H, Lymphocytes # (Auto) 0.9L, Monocytes # (Auto) 1.0, Eosinophils # (Auto) 0.4H, Basophils # (Auto) 0.0, Sodium Level 135, Potassium Level 4.1, Chloride Level 96L, Carbon Dioxide Level 30, Anion Gap 9, Blood Urea Nitrogen 13, Creatinine 0.60, Estimat Glomerular Filtration Rate > 60, BUN/ Creatinine Ratio 22, Glucose Level 119H, Calcium Level 8.6, Phosphorus Level 3.5 , Magnesium Level 2.1 11/10/17 06:28: White Blood Count 10.8, Red Blood Count 4.04L, Hemoglobin 12.6, Hematocrit 37, Mean Corpuscular Volume 91, Mean Corpuscular Hemoglobin 31, Mean Corpuscular Hemoglobin Concent 34, Red Cell Distribution Width 13.2, Platelet Count 194, Mean Platelet Volume 10.2, Neutrophils (%) (Auto) 84H, Lymphocytes (%) (Auto) 7L , Monocytes (%) (Auto) 7, Eosinophils (%) (Auto) 2, Basophils (%) (Auto) 0, Neutrophils # (Auto) 9.0H, Lymphocytes # (Auto) 0.8L, Monocytes # (Auto) 0.8, Eosinophils # (Auto) 0.2, Basophils # (Auto) 0.0, Sodium Level 135, Potassium Level 4.1, Chloride Level 99, Carbon Dioxide Level 28, Anion Gap 8, Blood Urea Nitrogen 16, Creatinine 0.53L, Estimat Glomerular Filtration Rate > 60, BUN/ Creatinine Ratio 30, Glucose Level 128H, Calcium Level 8.5, Phosphorus Level 3.0 , Magnesium Level 2.1, B-Type Natriuretic Peptide 163.4H 11/11/17 05:00: White Blood Count 10.2, Red Blood Count 3.87L, Hemoglobin 11.8, Hematocrit 35, Mean Corpuscular Volume 91, Mean Corpuscular Hemoglobin 30, Mean Corpuscular Hemoglobin Concent 33, Red Cell Distribution Width 13.3, Platelet Count 187, Mean Platelet Volume 9.7, Neutrophils (%) (Auto) 83H, Lymphocytes (%) (Auto) 6L , Monocytes (%) (Auto) 8, Eosinophils (%) (Auto) 3, Basophils (%) (Auto) 0, Neutrophils # (Auto) 8.5H, Lymphocytes # (Auto) 0.6L, Monocytes # (Auto) 0.8, Eosinophils # (Auto) 0.3, Basophils # (Auto) 0.0, Sodium Level 134L, Potassium Level 4.2, Chloride Level 100, Carbon Dioxide Level 29, Anion Gap 5, Blood Urea Nitrogen 10, Creatinine 0.55L, Estimat Glomerular Filtration Rate > 60, BUN/ Creatinine Ratio 18, Glucose Level 119H, Calcium Level 8.5, Phosphorus Level 3.3 , Magnesium Level 1.9 11/12/17 05:36: White Blood Count 11.8H, Red Blood Count 3.93L, Hemoglobin 12.3, Hematocrit 36, Mean Corpuscular Volume 91, Mean Corpuscular Hemoglobin 31, Mean Corpuscular Hemoglobin Concent 34, Red Cell Distribution Width 13.3, Platelet Count 166, Mean Platelet Volume 9.8, Neutrophils (%) (Auto) 85H, Lymphocytes (%) (Auto) 5L , Monocytes (%) (Auto) 8, Eosinophils (%) (Auto) 2, Basophils (%) (Auto) 0, Neutrophils # (Auto) 10.1H, Lymphocytes # (Auto) 0.5L, Monocytes # (Auto) 1.0, Eosinophils # (Auto) 0.2, Basophils # (Auto) 0.0 Microbiology 11/04/17 Mycobacterial Culture - Preliminary, Resulted Laboratory Tests 10/31/17 22:15 11/01/17 04:35 11/01/17 04:55 11/02/17 03:20 11/03/17 03:00 11/04/17 03:25 11/05/17 03:50 11/06/17 03:10 11/07/17 04:35 11/08/17 04:34 11/09/17 04:35 11/10/17 06:28 11/11/17 05:00 11/12/17 05:36 Pending Labs Microbiology Date/Time Source Procedure Growth Status 11/04/17 06:00 Bronchial Lavage (Bal) Left Lower Lobe Mycobacterial Culture - Preliminary Resulted 11/04/17 06:00 Bronchial Lavage (Bal) Left Lower Lobe Gram Stain - Final Resulted 11/04/17 06:00 Bronchial Culture - Final Staphylococcus aureus Presumptive Malena Albicans Normal patricia Resulted 11/04/17 06:00 Fungal Culture - Preliminary Malena albicans Resulted 11/04/17 06:00 Bronch Washings Bilateral Mycobacterial Culture - Preliminary Resulted 11/04/17 06:00 Bronch Washings Bilateral Gram Stain - Final Resulted 11/04/17 06:00 Bronchial Culture - Final Staphylococcus aureus Haemophilus parahaemolyticus Normal patricia Presumptive Malena Albicans Resulted 11/04/17 06:00 Fungal Culture - Preliminary Malena albicans Resulted 11/01/17 01:25 Nasal MRSA Screen - Final Complete Laboratory Tests 10/31/17 22:15: White Blood Count 8.0, Red Blood Count 3.91, Hemoglobin 12.5, Hematocrit 36, Mean Corpuscular Volume 92, Mean Corpuscular Hemoglobin 32, Mean Corpuscular Hemoglobin Concent 35, Red Cell Distribution Width 13.3, Platelet Count 195, Mean Platelet Volume 10.1, Neutrophils (%) (Auto) 76, Lymphocytes (%) (Auto) 14 , Monocytes (%) (Auto) 10, Eosinophils (%) (Auto) 0, Basophils (%) (Auto) 0, Neutrophils # (Auto) 6.1, Lymphocytes # (Auto) 1.1, Monocytes # (Auto) 0.8, Eosinophils # (Auto) 0.0, Basophils # (Auto) 0.0, Prothrombin Time 15.4, INR Comment 1.2, Activated Partial Thromboplast Time 28, Sodium Level 137, Potassium Level 4.6, Chloride Level 102, Carbon Dioxide Level 26, Anion Gap 9, Blood Urea Nitrogen 14, Creatinine 0.69, Estimat Glomerular Filtration Rate > 60 , BUN/Creatinine Ratio 20, Glucose Level 139, Calcium Level 9.0, Magnesium Level 2.1, Total Bilirubin 0.5, Aspartate Amino Transf (AST/SGOT) 28, Alanine Aminotransferase (ALT/SGPT) 30, Alkaline Phosphatase 60, Total Creatine Kinase 47, Creatine Kinase MB 1.5, Troponin I < 0.30, B-Type Natriuretic Peptide 277.0 , Total Protein 6.7, Albumin 3.5, Amylase Level 40, Lipase 20 10/31/17 22:25: Blood Gas Puncture Site LEFT RADIAL, Blood Gas Patient Temperature 98.7, Arterial Blood pH 7.46, Arterial Blood Partial Pressure CO2 41, Arterial Blood Partial Pressure O2 192, Arterial Blood HCO3 29, Arterial Blood Total CO2 29.9, Arterial Blood Oxygen Saturation 100, Arterial Blood Base Excess 4.8, Corey Test POSITIVE, Blood Gas Ventilator Setting NO, Blood Gas Inspired Oxygen 10L 10/31/17 23:00: Lab Scanned Report Referred Lab Report 11/01/17 04:35: Sodium Level 137, Potassium Level 3.7, Chloride Level 97, Carbon Dioxide Level 25, Anion Gap 15, Blood Urea Nitrogen 17, Creatinine 0.73, Estimat Glomerular Filtration Rate > 60, BUN/Creatinine Ratio 23, Glucose Level 215, Calcium Level 9.2, Total Bilirubin 0.6, Aspartate Amino Transf (AST/SGOT) 29, Alanine Aminotransferase (ALT/SGPT) 34, Alkaline Phosphatase 65, Troponin I < 0.30, Total Protein 7.4, Albumin 3.8 11/01/17 04:55: White Blood Count 8.2, Red Blood Count 4.42, Hemoglobin 13.3, Hematocrit 40, Mean Corpuscular Volume 91, Mean Corpuscular Hemoglobin 30, Mean Corpuscular Hemoglobin Concent 33, Red Cell Distribution Width 13.5, Platelet Count 209, Mean Platelet Volume 10.5, Neutrophils (%) (Auto) 93, Lymphocytes (%) (Auto) 6, Monocytes (%) (Auto) 1, Eosinophils (%) (Auto) 0, Basophils (%) (Auto) 0, Neutrophils # (Auto) 7.6, Lymphocytes # (Auto) 0.5, Monocytes # (Auto) 0.1, Eosinophils # (Auto) 0.0, Basophils # (Auto) 0.0, Neutrophils % (Manual) 97, Lymphocytes % (Manual) 2, Monocytes % (Manual) 1, Eosinophils % (Manual) 0, Basophils % (Manual) 0, Band Neutrophils 0, Poikilocytosis SLIGHT, Elliptocytes SLIGHT, Phosphorus Level 3.8, Magnesium Level 1.9 11/02/17 03:20: White Blood Count 9.3, Red Blood Count 4.09, Hemoglobin 12.9, Hematocrit 37, Mean Corpuscular Volume 90, Mean Corpuscular Hemoglobin 32, Mean Corpuscular Hemoglobin Concent 35, Red Cell Distribution Width 13.1, Platelet Count 202, Mean Platelet Volume 10.6, Neutrophils (%) (Auto) 90, Lymphocytes (%) (Auto) 6, Monocytes (%) (Auto) 4, Eosinophils (%) (Auto) 0, Basophils (%) (Auto) 0, Neutrophils # (Auto) 8.3, Lymphocytes # (Auto) 0.5, Monocytes # (Auto) 0.4, Eosinophils # (Auto) 0.0, Basophils # (Auto) 0.0, Phosphorus Level 3.4, Magnesium Level 1.9, Sodium Level 130, Potassium Level 3.7, Chloride Level 92, Carbon Dioxide Level 24, Anion Gap 14, Blood Urea Nitrogen 18, Creatinine 0.70, Estimat Glomerular Filtration Rate > 60, BUN/Creatinine Ratio 26, Glucose Level 208, Calcium Level 9.4 11/02/17 08:58: Blood Gas Puncture Site LT RAD, Blood Gas Patient Temperature 96.9, Arterial Blood pH 7.50, Arterial Blood Partial Pressure CO2 37, Arterial Blood Partial Pressure O2 97, Arterial Blood HCO3 29, Arterial Blood Total CO2 30.5, Arterial Blood Oxygen Saturation 99, Arterial Blood Base Excess 5.8, Corey Test YES-POS, Blood Gas Ventilator Setting NO, Blood Gas Inspired Oxygen 10L AND 45% 11/03/17 03:00: White Blood Count 8.8, Red Blood Count 3.93, Hemoglobin 12.1, Hematocrit 35, Mean Corpuscular Volume 89, Mean Corpuscular Hemoglobin 31, Mean Corpuscular Hemoglobin Concent 35, Red Cell Distribution Width 13.1, Platelet Count 212, Mean Platelet Volume 10.2, Neutrophils (%) (Auto) 87, Lymphocytes (%) (Auto) 6, Monocytes (%) (Auto) 7, Eosinophils (%) (Auto) 0, Basophils (%) (Auto) 0, Neutrophils # (Auto) 7.6, Lymphocytes # (Auto) 0.5, Monocytes # (Auto) 0.7, Eosinophils # (Auto) 0.0, Basophils # (Auto) 0.0, Phosphorus Level 3.1, Magnesium Level 2.1, Sodium Level 129, Potassium Level 3.7, Chloride Level 90, Carbon Dioxide Level 27, Anion Gap 12, Blood Urea Nitrogen 18, Creatinine 0.65, Estimat Glomerular Filtration Rate > 60, BUN/Creatinine Ratio 28, Glucose Level 222, Calcium Level 8.7, B-Type Natriuretic Peptide 135.1 11/04/17 03:25: White Blood Count 6.1, Red Blood Count 3.91, Hemoglobin 12.2, Hematocrit 35, Mean Corpuscular Volume 90, Mean Corpuscular Hemoglobin 31, Mean Corpuscular Hemoglobin Concent 35, Red Cell Distribution Width 12.9, Platelet Count 204, Mean Platelet Volume 10.5, Neutrophils (%) (Auto) 87, Lymphocytes (%) (Auto) 6, Monocytes (%) (Auto) 7, Eosinophils (%) (Auto) 0, Basophils (%) (Auto) 0, Neutrophils # (Auto) 5.3, Lymphocytes # (Auto) 0.4, Monocytes # (Auto) 0.4, Eosinophils # (Auto) 0.0, Basophils # (Auto) 0.0, Sodium Level 134, Potassium Level 4.0, Chloride Level 99, Carbon Dioxide Level 25, Anion Gap 10, Blood Urea Nitrogen 12, Creatinine 0.60, Estimat Glomerular Filtration Rate > 60, BUN/ Creatinine Ratio 20, Glucose Level 224, Calcium Level 8.4, Phosphorus Level 2.7 , Magnesium Level 2.2 11/05/17 03:50: White Blood Count 8.6, Red Blood Count 4.06, Hemoglobin 12.4, Hematocrit 37, Mean Corpuscular Volume 91, Mean Corpuscular Hemoglobin 31, Mean Corpuscular Hemoglobin Concent 34, Red Cell Distribution Width 13.2, Platelet Count 238, Mean Platelet Volume 10.2, Neutrophils (%) (Auto) 90, Lymphocytes (%) (Auto) 4, Monocytes (%) (Auto) 6, Eosinophils (%) (Auto) 0, Basophils (%) (Auto) 0, Neutrophils # (Auto) 7.7, Lymphocytes # (Auto) 0.4, Monocytes # (Auto) 0.5, Eosinophils # (Auto) 0.0, Basophils # (Auto) 0.0, Sodium Level 135, Potassium Level 3.9, Chloride Level 99, Carbon Dioxide Level 28, Anion Gap 8, Blood Urea Nitrogen 13, Creatinine 0.61, Estimat Glomerular Filtration Rate > 60, BUN/ Creatinine Ratio 21, Glucose Level 203, Calcium Level 8.3, Phosphorus Level 2.7 , Magnesium Level 2.2, Neutrophils % (Manual) 92, Lymphocytes % (Manual) 3, Monocytes % (Manual) 5, Eosinophils % (Manual) 0, Basophils % (Manual) 0, Band Neutrophils 0, Poikilocytosis SLIGHT, Tear Drop Cells SLIGHT, Elliptocytes SLIGHT 11/06/17 03:10: White Blood Count 6.8, Red Blood Count 3.98, Hemoglobin 12.5, Hematocrit 36, Mean Corpuscular Volume 91, Mean Corpuscular Hemoglobin 31, Mean Corpuscular Hemoglobin Concent 35, Red Cell Distribution Width 13.0, Platelet Count 216, Mean Platelet Volume 10.4, Neutrophils (%) (Auto) 87, Lymphocytes (%) (Auto) 7, Monocytes (%) (Auto) 6, Eosinophils (%) (Auto) 0, Basophils (%) (Auto) 0, Neutrophils # (Auto) 5.9, Lymphocytes # (Auto) 0.5, Monocytes # (Auto) 0.4, Eosinophils # (Auto) 0.0, Basophils # (Auto) 0.0, Sodium Level 134, Potassium Level 3.7, Chloride Level 99, Carbon Dioxide Level 25, Anion Gap 10, Blood Urea Nitrogen 18, Creatinine 0.62, Estimat Glomerular Filtration Rate > 60, BUN/ Creatinine Ratio 29, Glucose Level 284, Calcium Level 8.3, Phosphorus Level 2.8 , Magnesium Level 2.0 11/06/17 09:10: B-Type Natriuretic Peptide 392.2 11/07/17 04:35: White Blood Count 9.7, Red Blood Count 4.04, Hemoglobin 12.5, Hematocrit 37, Mean Corpuscular Volume 91, Mean Corpuscular Hemoglobin 31, Mean Corpuscular Hemoglobin Concent 34, Red Cell Distribution Width 13.3, Platelet Count 222, Mean Platelet Volume 10.2, Neutrophils (%) (Auto) 89, Lymphocytes (%) (Auto) 5, Monocytes (%) (Auto) 6, Eosinophils (%) (Auto) 0, Basophils (%) (Auto) 0, Neutrophils # (Auto) 8.7, Lymphocytes # (Auto) 0.4, Monocytes # (Auto) 0.6, Eosinophils # (Auto) 0.0, Basophils # (Auto) 0.0, Sodium Level 133, Potassium Level 3.7, Chloride Level 97, Carbon Dioxide Level 27, Anion Gap 9, Blood Urea Nitrogen 18, Creatinine 0.64, Estimat Glomerular Filtration Rate > 60, BUN/ Creatinine Ratio 28, Glucose Level 251, Calcium Level 8.4, Phosphorus Level 4.3 , Magnesium Level 2.3 11/08/17 04:34: White Blood Count 9.3, Red Blood Count 4.11, Hemoglobin 12.8, Hematocrit 37, Mean Corpuscular Volume 91, Mean Corpuscular Hemoglobin 31, Mean Corpuscular Hemoglobin Concent 34, Red Cell Distribution Width 13.0, Platelet Count 237, Mean Platelet Volume 10.0, Neutrophils (%) (Auto) 86, Lymphocytes (%) (Auto) 7, Monocytes (%) (Auto) 7, Eosinophils (%) (Auto) 0, Basophils (%) (Auto) 0, Neutrophils # (Auto) 7.9, Lymphocytes # (Auto) 0.6, Monocytes # (Auto) 0.7, Eosinophils # (Auto) 0.0, Basophils # (Auto) 0.0, Sodium Level 135, Potassium Level 4.3, Chloride Level 99, Carbon Dioxide Level 27, Anion Gap 9, Blood Urea Nitrogen 17, Creatinine 0.59, Estimat Glomerular Filtration Rate > 60, BUN/ Creatinine Ratio 29, Glucose Level 207, Calcium Level 8.4, Phosphorus Level 3.7 , Magnesium Level 2.3 11/09/17 04:35: White Blood Count 10.4, Red Blood Count 4.23, Hemoglobin 12.8, Hematocrit 38, Mean Corpuscular Volume 91, Mean Corpuscular Hemoglobin 30, Mean Corpuscular Hemoglobin Concent 33, Red Cell Distribution Width 13.3, Platelet Count 237, Mean Platelet Volume 9.5, Neutrophils (%) (Auto) 78, Lymphocytes (%) (Auto) 9, Monocytes (%) (Auto) 9, Eosinophils (%) (Auto) 4, Basophils (%) (Auto) 0, Neutrophils # (Auto) 8.1, Lymphocytes # (Auto) 0.9, Monocytes # (Auto) 1.0, Eosinophils # (Auto) 0.4, Basophils # (Auto) 0.0, Sodium Level 135, Potassium Level 4.1, Chloride Level 96, Carbon Dioxide Level 30, Anion Gap 9, Blood Urea Nitrogen 13, Creatinine 0.60, Estimat Glomerular Filtration Rate > 60, BUN/ Creatinine Ratio 22, Glucose Level 119, Calcium Level 8.6, Phosphorus Level 3.5 , Magnesium Level 2.1 11/10/17 06:28: White Blood Count 10.8, Red Blood Count 4.04, Hemoglobin 12.6, Hematocrit 37, Mean Corpuscular Volume 91, Mean Corpuscular Hemoglobin 31, Mean Corpuscular Hemoglobin Concent 34, Red Cell Distribution Width 13.2, Platelet Count 194, Mean Platelet Volume 10.2, Neutrophils (%) (Auto) 84, Lymphocytes (%) (Auto) 7, Monocytes (%) (Auto) 7, Eosinophils (%) (Auto) 2, Basophils (%) (Auto) 0, Neutrophils # (Auto) 9.0, Lymphocytes # (Auto) 0.8, Monocytes # (Auto) 0.8, Eosinophils # (Auto) 0.2, Basophils # (Auto) 0.0, Sodium Level 135, Potassium Level 4.1, Chloride Level 99, Carbon Dioxide Level 28, Anion Gap 8, Blood Urea Nitrogen 16, Creatinine 0.53, Estimat Glomerular Filtration Rate > 60, BUN/ Creatinine Ratio 30, Glucose Level 128, Calcium Level 8.5, Phosphorus Level 3.0 , Magnesium Level 2.1, B-Type Natriuretic Peptide 163.4 11/11/17 05:00: White Blood Count 10.2, Red Blood Count 3.87, Hemoglobin 11.8, Hematocrit 35, Mean Corpuscular Volume 91, Mean Corpuscular Hemoglobin 30, Mean Corpuscular Hemoglobin Concent 33, Red Cell Distribution Width 13.3, Platelet Count 187, Mean Platelet Volume 9.7, Neutrophils (%) (Auto) 83, Lymphocytes (%) (Auto) 6, Monocytes (%) (Auto) 8, Eosinophils (%) (Auto) 3, Basophils (%) (Auto) 0, Neutrophils # (Auto) 8.5, Lymphocytes # (Auto) 0.6, Monocytes # (Auto) 0.8, Eosinophils # (Auto) 0.3, Basophils # (Auto) 0.0, Sodium Level 134, Potassium Level 4.2, Chloride Level 100, Carbon Dioxide Level 29, Anion Gap 5, Blood Urea Nitrogen 10, Creatinine 0.55, Estimat Glomerular Filtration Rate > 60, BUN/ Creatinine Ratio 18, Glucose Level 119, Calcium Level 8.5, Phosphorus Level 3.3 , Magnesium Level 1.9 11/12/17 05:36: White Blood Count 11.8, Red Blood Count 3.93, Hemoglobin 12.3, Hematocrit 36, Mean Corpuscular Volume 91, Mean Corpuscular Hemoglobin 31, Mean Corpuscular Hemoglobin Concent 34, Red Cell Distribution Width 13.3, Platelet Count 166, Mean Platelet Volume 9.8, Neutrophils (%) (Auto) 85, Lymphocytes (%) (Auto) 5, Monocytes (%) (Auto) 8, Eosinophils (%) (Auto) 2, Basophils (%) (Auto) 0, Neutrophils # (Auto) 10.1, Lymphocytes # (Auto) 0.5, Monocytes # (Auto) 1.0, Eosinophils # (Auto) 0.2, Basophils # (Auto) 0.0 Discussion & Recommendations Patient transferred to rehabilitation. Patient short of breath with exertion. Discharge Home Medications: Active Scripts Active Synthroid (Levothyroxine Sodium) 75 Mcg Tablet 75 Mcg PO DAILY@0630 30 Days Reported Aspirin 81 Mg Tab.chew 81 Mg PO HS Lipitor (Atorvastatin Calcium) 80 Mg Tablet 80 Mg PO HS Plavix (Clopidogrel Bisulfate) 75 Mg Tablet 75 Mg PO DAILY Advair Hfa 115-21 Mcg Inhaler (Fluticasone/Salmeterol) 12 Gm Hfa.aer.ad 2 Puff IH BID Prednisone 10 Mg Tab.ds.pk 40 Mg PO DAILY 7 Days 7 DAY THEARPY FILLED 10-30-17 [Allbee W/ C] 1 Tab PO 1800 Citracal + D Maximum Caplet (Calcium Citrate/Vitamin D3) 1 Each Tablet 1 Tab PO HS Venlafaxine HCl 37.5 Mg Tab 37.5 Mg PO DAILY Instructions to patient/family Please see electronic discharge instructions given to patient. Clinical Quality Measures DVT/VTE Risk/Contraindication: Risk Factor Score Per Nursin RFS Level Per Nursing on Admit: 2=Moderate ABRAM BRITT DO Nov 14, 2017 07:28
== END 2017-11-12 08:14 | disposition swing bed (61) | DRG 166 ==
LOC: EDUNIT# 21:26 → ER 21:27 → ICU 23:00 → UNDOADMIN 11-01 → ICU 11-01 → 4TH 11-07 11:30
PROVIDERS: ADMIT Internal Medicine; ATTEND Internal Medicine
PROC: 0BBJ8ZX Excision of Left Lower Lung Lobe, Via Natural or Artificial Opening Endoscopic, Diagnostic (ICD-10-PCS; principal; 2017-11-04)
PROC: 0B9J8ZX Drainage of Left Lower Lung Lobe, Via Natural or Artificial Opening Endoscopic, Diagnostic (ICD-10-PCS; 2017-11-04)
DX: J96.20 Acute and chronic respiratory failure, unspecified whether with hypoxia or hypercapnia (principal); I11.0 Hypertensive heart disease with heart failure; I50.33 Acute on chronic diastolic (congestive) heart failure; J82 Pulmonary eosinophilia, not elsewhere classified; J18.9 Pneumonia, unspecified organism; B37.0 Candidal stomatitis; I25.10 Atherosclerotic heart disease of native coronary artery without angina pectoris; E87.1 Hypo-osmolality and hyponatremia; J44.0 Chronic obstructive pulmonary disease with (acute) lower respiratory infection; J44.1 Chronic obstructive pulmonary disease with (acute) exacerbation; J47.9 Bronchiectasis, uncomplicated; I25.2 Old myocardial infarction; F41.9 Anxiety disorder, unspecified; E78.00 Pure hypercholesterolemia, unspecified; E03.9 Hypothyroidism, unspecified; N28.9 Disorder of kidney and ureter, unspecified; E09.9 Drug or chemical induced diabetes mellitus without complications; T50.1X5A Adverse effect of loop [high-ceiling] diuretics, initial encounter; T38.0X5A Adverse effect of glucocorticoids and synthetic analogues, initial encounter; Z99.81 Dependence on supplemental oxygen; Z95.5 Presence of coronary angioplasty implant and graft; Z79.52 Long term (current) use of systemic steroids; Z77.29 Contact with and (suspected) exposure to other hazardous substances
CPT/HCPCS: 36415; 36600; 71045; 71275; 80048; 80053; 82150; 82550; 82553; 82805; 83690; 83735; 83880; 84100; 84484; 85007; 85025; 85027; 85610; 85730; 87070; 87077; 87081; 87101; 87106; 87116; 87186; 87205; 88112; 88305; 88312; 93005; 93041; 93306; 94640; 94664; 94760; 96374; 96375

== ENCOUNTER 2017-12-08 09:06 | Inpatient (IN) | payer MEDICARE, OTHER ==
[~2017-12-08] VITALS: Ht 152.4 cm; Wt 54.6 kg
[2017-12-08] VITALS (16 sets, daily range): BP systolic 102–132; BP diastolic 46–92
[~2017-12-08 09:06] MED LIST changes: -ALBU18HF2 INH; -AZAT50TA PO; -CALC1TAB29 PO; -LEVO75TA6 PO; -LOSA25TA21 PO; -METF500T5 PO; -PRD20T PO; -SENN-109 PO; -SULF-222 PO; -VENL75CA PO
[2017-12-08] MEDS ORDERED: RT-ALBUTEROL/IPRATROPIUM 3 ML (DUONEB) VIAL ONE ×2 (09:22→11:40)
--- NOTE | 2017-12-08 09:39 | ED Cough/URI ---
General Chief Complaint: Respiratory Problems Stated Complaint: SOB,SWEATY,ABD PAIN Nursing Triage Note: PATIENT BROUGHT HERE BY FOR SIGNIFICANTLY WORSENED SOB. PATIENT ON HOME 02 AT 10L. INITIAL SPO2 READING WAS 65%. Source: patient, family Exam Limitations: no limitations History of Present Illness Date Seen by Provider: Dec 08, 2017 Time Seen by Provider: 09:35 Initial Comments This 72-year-old white female presents with progressive shortness of breath despite attempts at home to treat the patient with supplemental oxygen and breathing treatments. Patient has had a very difficult history of respiratory distress secondary to her lung disease. She was originally hospitalized at [facility] and then transferred to . After a prolonged hospitalization the patient was discharged approximately a week ago. Patient has been compliant on her medications and treatments. She has had no associated fever or productive cough. She denies chest pain, diaphoresis, nausea or vomiting. Allergies and Home Medications Allergies Coded Allergies: No Known Drug Allergies (Unverified , 08/03/17) Home Medications Aspirin 81 Mg Tab.chew, 81 MG PO HS, (Reported) Atorvastatin Calcium 80 Mg Tablet, 80 MG PO HS, (Reported) Calcium Citrate/Vitamin D3 1 Each Tablet, 1 TAB PO HS, (Reported) Clopidogrel Bisulfate 75 Mg Tablet, 75 MG PO DAILY, (Reported) Fluticasone/Salmeterol 12 Gm Hfa.aer.ad, 2 PUFF IH BID, (Reported) Levothyroxine Sodium 75 Mcg Tablet, 75 MCG PO DAILY@0630 Prescribed by: MARIANA QUEVEDO on 08/29/17 1007 Prednisone 10 Mg Tab.ds.pk, 40 MG PO DAILY, (Reported) 7 DAY THEARPY FILLED 10-30-17 Venlafaxine HCl 37.5 Mg Tab, 37.5 MG PO DAILY, (Reported) [Allbee W/ C] , 1 TAB PO 1800, (Reported) Patient Home Medication List Home Medication List Reviewed: Yes Review of Systems Constitutional: No chills, No fever; weakness EENTM: No hearing loss Respiratory: see HPI, cough, short of breath, wheezing Cardiovascular: No chest pain Gastrointestinal: No abdominal pain, No vomiting Genitourinary: no symptoms reported Musculoskeletal: No back pain Skin: No rash Psychiatric/Neurological: No Symptoms Reported Hematologic/Lymphatic: No Symptoms Reported Immunological/Allergic: no symptoms reported Past Gcrrakc-Bnmzcl-Oguojh Hx Past Med/Social Hx: Reviewed Nursing Past Med/Soc Hx Patient Social History Alcohol Use: Denies Use Recreational Drug Use: No Smoking Status: Never a Smoker 2nd Hand Smoke Exposure: No Recent Foreign Travel: No Contact w/Someone Who Travel: No Recent Infectious Disease Expo: No Recent Hopitalizations: No Physical Abuse: No Sexual Abuse: No Immunizations Up To Date Date of Pneumonia Vaccine: Apr 06, 2016 Date of Influenza Vaccine: Apr 06, 2017 Seasonal Allergies Seasonal Allergies: No Past Medical History Surgeries: Yes Cardiac, Section, Coronary Stent, Orthopedic Respiratory: Yes (RESPIRATORY FAILURE POST-[place] AND ON HOME O2 AT 3L/[place] SINCE 2017) Pneumonia Currently Using CPAP: No Currently Using BIPAP: No Cardiac: Yes Atrial Fibrillation, Coronary Artery Disease, Heart Attack, High Cholesterol, Hypertension Neurological: No Female Reproductive Disorders: Denies Sexually Transmitted Disease: No HIV/AIDS: No Genitourinary: No Gastrointestinal: No Musculoskeletal: Yes Arthritis Endocrine: Yes (thyroid problems) Hypothyroidsim HEENT: No Loss of Vision: Denies Hearing Impairment: Denies Cancer: No Psychosocial: No Nursing Suicide Risk Score: 0 Integumentary: No Blood Disorders: Yes (ANEMIA) Adverse Reaction/Blood Tranf: No Family Medical History No Pertinent Family Hx Physical Exam Vital Signs - First Documented 12/08/17 12/08/17 09:26 09:27 Temp 95.6 Pulse 105 Resp 25 B/P (MAP) 139/85 (103) Pulse Ox 92 O2 Delivery High Flow NC O2 Flow Rate 50.00 Capillary Refill : Less Than 3 Seconds Height: 5'5.00" Weight: 111lbs. 0oz. 50.291118yg; 23.6 BMI Method:Stated General Appearance: severe distress, cachetic Eyes: Bilateral Eye Normal Inspection HEENT: normal ENT inspection Neck: full range of motion, supple, normal inspection Respiratory: decreased breath sounds, wheezing Cardiovascular: tachycardia Gastrointestinal: normal bowel sounds, non tender Extremities: normal range of motion, non-tender, normal inspection Neurologic/Psychiatric: no motor/sensory deficits, alert, normal mood/affect Skin: normal color, warm/dry Procedures/Interventions Date of ETT Placement: Nov 19, 2017 Time of ETT Placement: 1356 Progress/Results/Core Measures Suspected Sepsis Recent Fever Within 48 Hours: No Infection Criteria Present: Suspected New Infection New/Unexplained Altered Menta: No Sepsis Screen: Possible Sepsis Risk SIRS Temperature:95.6 Pulse: 108 Respiratory Rate: 30 Laboratory Tests 12/08/17 09:20: White Blood Count 10.4 Blood Pressure 139 /85 Mean: 103 Laboratory Tests 12/08/17 09:20: Creatinine 0.61, Platelet Count 229, Total Bilirubin 0.9 Results/Orders Lab Results Laboratory Tests Test 12/08/17 09:20 Range/Units White Blood Count 10.4 4.3-11.0 10^3/uL Red Blood Count 4.52 4.35-5.85 10^6/uL Hemoglobin 14.1 11.5-16.0 G/DL Hematocrit 41 35-52 % Mean Corpuscular Volume 91 80-99 FL Mean Corpuscular Hemoglobin 31 25-34 PG Mean Corpuscular Hemoglobin Concent 34 32-36 G/DL Red Cell Distribution Width 14.3 10.0-14.5 % Platelet Count 229 130-400 10^3/uL Mean Platelet Volume 9.8 7.4-10.4 FL Neutrophils (%) (Auto) 66 42-75 % Lymphocytes (%) (Auto) 22 12-44 % Monocytes (%) (Auto) 7 0-12 % Eosinophils (%) (Auto) 4 0-10 % Basophils (%) (Auto) 1 0-10 % Neutrophils # (Auto) 6.8 1.8-7.8 X 10^3 Lymphocytes # (Auto) 2.3 1.0-4.0 X 10^3 Monocytes # (Auto) 0.7 0.0-1.0 X 10^3 Eosinophils # (Auto) 0.5 H 0.0-0.3 10^3/uL Basophils # (Auto) 0.1 0.0-0.1 10^3/uL Sodium Level 133 L 135-145 MMOL/L Potassium Level 4.4 3.6-5.0 MMOL/L Chloride Level 97 L 98-107 MMOL/L Carbon Dioxide Level 27 21-32 MMOL/L Anion Gap 9 5-14 MMOL/L Blood Urea Nitrogen 18 7-18 MG/DL Creatinine 0.61 0.60-1.30 MG/DL Estimat Glomerular Filtration Rate > 60 BUN/Creatinine Ratio 30 Glucose Level 146 H 70-105 MG/DL Calcium Level 9.5 8.5-10.1 MG/DL Total Bilirubin 0.9 0.1-1.0 MG/DL Aspartate Amino Transf (AST/SGOT) 31 5-34 U/L Alanine Aminotransferase (ALT/SGPT) 40 0-55 U/L Alkaline Phosphatase 60 40-136 U/L Troponin I < 0.30 <0.30 NG/ML Total Protein 6.9 6.4-8.2 GM/DL Albumin 3.6 3.2-4.5 GM/DL My Orders Orders - LCARK ROMERO MD Albuterol/Ipra Inhalation Soln (Duoneb I (12/08/17 09:22) Methylprednisolone Sod Succ (Solu-Medrol (12/08/17 09:45) Chest 1 View, Ap/Pa Only (12/08/17 09:32) Cbc With Automated Diff (12/08/17 09:32) Comprehensive Metabolic Panel (12/08/17 09:32) Ekg Tracing (12/08/17 09:32) Troponin I (12/08/17 09:32) Ua Culture If Indicated (12/08/17 09:32) Blood Culture (12/08/17 09:42) BNP (12/08/17 09:42) Lactic Acid Analyzer (12/08/17 09:42) Furosemide Injection (Lasix Injection) (12/08/17 09:45) Medications Given in ED Current Medications Medications Dose Ordered Sig/Radha Route Start Time Stop Time Status Last Admin Dose Admin Albuterol/ Ipratropium 3 ml STK-MED ONCE .ROUTE 12/08/17 09:22 12/08/17 09:24 DC 12/08/17 09:25 3 ML Furosemide 40 mg ONCE ONCE IVP 12/08/17 09:45 12/08/17 09:46 DC 12/08/17 09:53 40 MG Methylprednisolone Sodium Succinate 125 mg ONCE ONCE IVP 12/08/17 09:45 12/08/17 09:46 DC 12/08/17 09:53 125 MG Vital Signs/I&O 12/08/17 12/08/17 09:26 09:27 Temp 95.6 Pulse 105 108 Resp 25 30 B/P (MAP) 139/85 (103) Pulse Ox 92 65 O2 Delivery High Flow NC O2 Flow Rate 50.00 Capillary Refill : Less Than 3 Seconds Blood Pressure Mean: 103 Progress Note : Time: 10:15 Progress Note The patient was treated with Solu-Medrol 125 mg IV, DuoNeb treatment, and BiPAP at 12 mm and [address] Talley the patient received 40 mg of Lasix and a BNP was ordered. Dr. Quan was consulted. Critical Care Note Critical Care Total Time (minutes) 45 min Date of : Dec 08, 2017 Departure Communication (Admissions) Time/Spoke to Admitting Phy: 10:17 Dr. Britt Time/Spoke to Consulting Phy: 10:18 Dr. Quan Impression Primary Impression: Acute respiratory failure with hypoxia Disposition: ADMITTED INPATIENT Condition: Improved Admissions Decision to Admit Reason: Admit from ER (General) Decision to Admit/Date: Dec 08, 2017 Time/Decision to Admit Time: 10:18 Departure-Patient Inst. Referrals: ABRAM BRITT DO (PCP/Family) Primary Care Physician CLARK ROMERO MD Dec 08, 2017 09:39
[2017-12-08 09:40] LABS: BASOPHILS # (AUTO) 0.1 10^3/uL (0.0-0.1); BASOPHILS % (AUTO) 1 % (0-10); EOSINOPHILS # (AUTO) 0.5 10^3/uL (0.0-0.3); EOSINOPHILS % (AUTO) 4 % (0-10); HEMATOCRIT 41 % (35-52); HEMOGLOBIN 14.1 G/DL (11.5-16.0); LYMPHOCYTES # (AUTO) 2.3 X 10^3 (1.0-4.0); LYMPHOCYTES % (AUTO) 22 % (12-44); MEAN CORPUSCULAR HEMOGLOBIN 31 PG (25-34); MEAN CORPUSCULAR HGB CONC 34 G/DL (32-36); MEAN CORPUSCULAR VOLUME 91 FL (80-99); MEAN PLATELET VOLUME 9.8 FL (7.4-10.4); MONOCYTES # (AUTO) 0.7 X 10^3 (0.0-1.0); MONOCYTES % (AUTO) 7 % (0-12); NEUTROPHILS # (AUTO) 6.8 X 10^3 (1.8-7.8); NEUTROPHILS % (AUTO) 66 % (42-75); PLATELET COUNT 229 10^3/uL (130-400); RED BLOOD COUNT 4.52 10^6/uL (4.35-5.85); RED CELL DISTRIBUTION WIDTH 14.3 % (10.0-14.5); WHITE BLOOD COUNT 10.4 10^3/uL (4.3-11.0)
[2017-12-08] MEDS ORDERED: FUROSEMIDE 40 MG/4 ML INJ (LASIX) IVP ONE (09:45)
[2017-12-08] MEDS ORDERED: methylPREDNISolone 125 MG (Solu-MEDROL) VIAL IVP ONE (09:45)
[2017-12-08 09:51] LABS: ALANINE AMINOTRANSFERASE 40 U/L (0-55); ALBUMIN 3.6 GM/DL (3.2-4.5); ALKALINE PHOSPHATASE 60 U/L (40-136); BILIRUBIN,TOTAL 0.9 MG/DL (0.1-1.0); BUN/CREATININE RATIO 30; CALCIUM 9.5 MG/DL (8.5-10.1); CARBON DIOXIDE 27 MMOL/L (21-32); CHLORIDE 97 MMOL/L (98-107); CREATININE SERUM 0.61 MG/DL (0.60-1.30); GFR ESTIMATED > 60; GLUCOSE 146 MG/DL (70-105); POTASSIUM 4.4 MMOL/L (3.6-5.0); SODIUM 133 MMOL/L (135-145); TOTAL PROTEIN 6.9 GM/DL (6.4-8.2)
--- NOTE | 2017-12-08 10:54 | Diagnostic Imaging Report ---
INDICATION: Shortness of breath. TIME OF EXAMINATION: 10:33 AM. COMPARISON: 11/19/2017. FINDINGS: The heart size is stable. The right hemidiaphragm is elevated. The bilateral infiltrates appear similar to the prior exam. No effusion or pneumothorax is seen. The endotracheal tube has been removed since the prior study. IMPRESSION: Stable bilateral pulmonary infiltrate since the exam from 11/19/2017. Dictated by: Dictated on workstation # [id number]
[2017-12-08] MEDS ORDERED: CATHETER FLUSH 10 ML SYR IV PRN (11:15)
[2017-12-08] MEDS ORDERED: NS IV 1000 ML 1,000 ML IV SCH (11:15)
[2017-12-08 11:33] LABS: BILIRUBIN,URINE NEGATIVE (NEGATIVE); CLARITY,URINE CLEAR; COLOR,URINE YELLOW; GLUCOSE, URINE (UA) NEGATIVE (NEGATIVE); KETONES,URINE NEGATIVE (NEGATIVE); LEUKOCYTE ESTERASE ,URINE 3+ (NEGATIVE); NITRITE,URINE NEGATIVE (NEGATIVE); PH,URINE 7 (5-9); PROTEIN,URINE NEGATIVE (NEGATIVE); UROBILINOGEN,URINE NORMAL (NORMAL)
--- NOTE | 2017-12-08 11:37 | Pulmonary Consultation ---
History of Present Illness History of Present Illness Date of Consultation 12/08/17 11:32 Time Seen by Provider: 11:32 Date of Admission History of Present Illness 72yo with hx of severe oxygen dependent COPD presented to ED secondary to progressive SOB. Last hospitalization patient was transferred to . Pt was just discharged 1 week ago. Allergies and Home Medications Allergies Coded Allergies: No Known Drug Allergies (Unverified , 08/03/17) Home Medications Albuterol Sulfate 18 Gm Hfa.aer.ad, 2 PUFF INH Q4H PRN for SHORTNESS OF BREATH, (Reported) Aspirin 81 Mg Tab.chew, 81 MG PO HS, (Reported) Atorvastatin Calcium 80 Mg Tablet, 80 MG PO HS, (Reported) Azathioprine 50 Mg Tablet, 50 MG PO DAILY, (Reported) Calcium Carbonate/Vitamin D3 1 Each Tablet, 1 TAB PO BID, (Reported) Clopidogrel Bisulfate 75 Mg Tablet, 75 MG PO DAILY, (Reported) Fluticasone/Salmeterol 12 Gm Hfa.aer.ad, 2 PUFF IH BID, (Reported) Furosemide 40 Mg Tablet, 20 MG PO Q48H, (Reported) Levothyroxine Sodium 75 Mcg Tablet, 75 MCG PO DAILY, (Reported) Losartan Potassium 25 Mg Tablet, 12.5 MG PO DAILY, (Reported) TAKES 1/2 (25MG) TABLET Metformin HCl 500 Mg Tablet, 500 MG PO BID WITH MEALS, (Reported) Metoprolol Succinate 25 Mg Tab.er.24h, 25 MG PO DAILY, (Reported) Potassium Chloride 10 Meq Tablet.er, 10 MEQ PO Q48H, (Reported) Prednisone 20 Mg Tab, PO UD, (Reported) TAKE 60MG DAILY X 13 DAYS (UNTIL 12-15-17) THEN TAKE 40MG DAILY UNTIL FOLLOW UP WITH PULMONOLOGY Sennosides/Docusate Sodium 1 Each Tablet, 1 TAB PO BID, (Reported) Sulfamethoxazole/Trimethoprim 1 Each Tablet, 1 TAB PO MoWeFr, (Reported) FILLED 12-01-17 Venlafaxine HCl 75 Mg Cap.er.24h, 75 MG PO DAILY Prescribed by: ABRAM BRITT on 12/10/17 0742 [Allbee W/ C] , 1 TAB PO 1800, (Reported) Past Mffmelp-Uxeuyf-Ebqets Hx Past Med/Social Hx: Reviewed Nursing Past Med/Soc Hx Patient Social History Alcohol Use: Denies Use Recreational Drug Use: No Smoking Status: Never a Smoker 2nd Hand Smoke Exposure: No Recent Foreign Travel: No Contact w/Someone Who Travel: No Recent Infectious Disease Expo: No Recent Hopitalizations: No Physical Abuse: No Sexual Abuse: No Immunizations Up To Date Date of Pneumonia Vaccine: Apr 06, 2016 Date of Influenza Vaccine: Apr 06, 2017 Seasonal Allergies Seasonal Allergies: No Past Medical History Surgeries: Yes Cardiac, Section, Coronary Stent, Orthopedic Respiratory: Yes (RESPIRATORY FAILURE POST-[place] AND ON HOME O2 AT 3L/[place] SINCE 2017) Pneumonia Currently Using CPAP: No Currently Using BIPAP: No Cardiac: Yes Atrial Fibrillation, Coronary Artery Disease, Heart Attack, High Cholesterol, Hypertension Neurological: No Female Reproductive Disorders: Denies Sexually Transmitted Disease: No HIV/AIDS: No Genitourinary: No Gastrointestinal: No Musculoskeletal: Yes Arthritis Endocrine: Yes (thyroid problems) Hypothyroidsim HEENT: No Loss of Vision: Denies Hearing Impairment: Denies Cancer: No Psychosocial: No Nursing Suicide Risk Score: 0 Integumentary: No Blood Disorders: Yes (ANEMIA) Adverse Reaction/Blood Tranf: No Family Medical History No Pertinent Family Hx Review of Systems Time Seen by Provider: 06:45 Constitutional: Sweats, Weakness; No: Fever, Chills, Malaise, Other Respiratory: Cough, Dry, Shortness of breath, SOB with excertion, Wheezing; No : Hemoptysis Cardiovascular: Palpitations, Orthopnea, Paroxysmal Noc. Dyspnea, Edema Gastrointestinal: No: Nausea, Vomiting, Abdominal Pain, Diarrhea, Constipation , Melena, Hematochezia, Other Genitourinary: No Dysuria, No Frequency, No Incontinence, No Hematuria, No Retention, No Other Neurological: Weakness Sepsis Event Evaluation Height, Weight, BMI Height: 5'5.00" Weight: 111lbs. 0oz. 50.410852sx; 23.6 BMI Method:Stated Exam Exam Vital Signs Date Time Temp Pulse Resp B/P (MAP) Pulse Ox O2 Delivery O2 Flow Rate FiO2 12/08/17 10:46 95.6 108 30 139/85 (103) 65 50.00 12/08/17 10:43 95.6 108 30 139/85 65 50.00 12/08/17 09:27 95.6 108 30 139/85 (103) 65 High Flow NC 12/08/17 09:26 105 25 92 50.00 Height & Weight Height: 5'5.00" Weight: 111lbs. 0oz. 50.901469nh; 23.6 BMI Method:Stated General Appearance: Anxious, Moderate Distress HEENT: PERRL/EOMI, Normal ENT Inspection, Pharynx Normal Neck: Full Range of Motion, Non Tender, Supple Respiratory: Accessory Muscle Use, Crackles, Decreased Breath Sounds, Respiratory Distress Cardiovascular: No Edema, No Gallop, No JVD Capillary Refill: Less Than 3 Seconds Gastrointestinal: normal bowel sounds, non tender Extremity: Normal Capillary Refill, Normal Inspection, Normal Range of Motion Neurologic/Psychiatric: Alert, Oriented x3 Skin: Normal Color Results Lab Laboratory Tests 12/08/17 09:20 Assessment/Plan Assessment/Plan Acute on Chronic respiratory failure -PT had recent hospitalization and was discharged 1 wk ago -ABG -Obtain records from [facility] with hx of heavy black mold exposure NEver smoker CHFAE - hx of diastolic CHF EF 60% -Cardiology following -Last Echo showed mild diastolic disfuntion with RSVP 25-30 -last BNP 249 - pt is on lasix 60mg daily CAD recent LA with stent placement. debility/weakness -PT/OT JUANA WILLS DO Dec 08, 2017 11:37
[2017-12-08] MEDS ORDERED: RT-ALBUTEROL/IPRATROPIUM 3 ML (DUONEB) VIAL INH PRN (11:45)
[2017-12-08 11:48] LABS: BACTERIA,URINE NEGATIVE /HPF; SQUAMOUS EPITHELIAL CELL,UR RARE /HPF
[2017-12-08 11:58] LABS: ABG BASE EXCESS 5.6 MMOL/L (-2.5-2.5); ABG OXYGEN SATURATION 98 % (94-100); ABG PCO2 42 MMHG (35-45); ABG PH 7.46 (7.37-7.43); ABG PO2 82 MMHG (79-93); ABG TCO2 30.9 MMOL/L (21.0-31.0)
[2017-12-08] MEDS ORDERED: LEVO75TA6 PO (11:59)
[2017-12-08 12:04] LABS: ALLENS TEST YES-POS; INSPIRED O2 50%; PATIENT TEMP 97.6; VENTILATOR NO
[2017-12-08] MEDS: methylPREDNISolone 40 MG/ML (Solu-MEDROL) VIAL IV SCH ×2 (13:12→19:01)
[2017-12-08] MEDS ORDERED: CALC1TAB29 PO (13:36)
[2017-12-08] MEDS ORDERED: FURO40TA4 PO (13:36)
[2017-12-08] MEDS ORDERED: METO-387 PO (13:36)
[2017-12-08] MEDS ORDERED: METF500T5 PO (13:36)
[2017-12-08] MEDS ORDERED: PRD20T PO (13:36)
[2017-12-08] MEDS ORDERED: AZAT50TA PO (13:36)
[2017-12-08] MEDS ORDERED: POTA10TA6 PO (13:36)
[2017-12-08] MEDS ORDERED: LOSA25TA21 PO (13:36)
[2017-12-08] MEDS ORDERED: SULF-222 PO (13:36)
[2017-12-08] MEDS ORDERED: ALBU18HF2 INH (13:36)
[2017-12-08] MEDS ORDERED: SENN-109 PO (13:37)
[2017-12-08] MEDS: RT-ALBUTEROL/IPRATROPIUM 3 ML (DUONEB) VIAL INH SCH ×3 (14:55→22:46)
--- NOTE | 2017-12-08 19:20 | History & Physicial ---
History of Present Illness History of Present Illness Reason for visit/HPI Patient was at home this morning and got short of breath. Patient went to the bathroom. It took 30 minutes the patient to get out of the bathroom.. brought patient out to the emergency room. Patient on 10 L of nasal oxygen. Pulse ox was 65. Patient evaluated by the emergency room physician and admitted to ICU. Patient discharged one week ago from [facility]. Patient before that was at [facility] Patient told she has an autoimmune disease and put on Imuran Date of Admission Dec 08, 2017 at 09:52 Time Seen by Provider: 19:15 I consulted on this patient on 12/08/17 19:15 Attending Physician Benny Britt DO Admitting Physician Benny Britt DO Consult Allergies and Home Medications Allergies Coded Allergies: No Known Drug Allergies (Unverified , 08/03/17) Home Medications Albuterol Sulfate 18 Gm Hfa.aer.ad, 2 PUFF INH Q4H PRN for SHORTNESS OF BREATH, (Reported) Aspirin 81 Mg Tab.chew, 81 MG PO HS, (Reported) Atorvastatin Calcium 80 Mg Tablet, 80 MG PO HS, (Reported) Azathioprine 50 Mg Tablet, 50 MG PO DAILY, (Reported) Calcium Carbonate/Vitamin D3 1 Each Tablet, 1 TAB PO BID, (Reported) Clopidogrel Bisulfate 75 Mg Tablet, 75 MG PO DAILY, (Reported) Fluticasone/Salmeterol 12 Gm Hfa.aer.ad, 2 PUFF IH BID, (Reported) Furosemide 40 Mg Tablet, 20 MG PO Q48H, (Reported) Levothyroxine Sodium 75 Mcg Tablet, 75 MCG PO DAILY, (Reported) Losartan Potassium 25 Mg Tablet, 12.5 MG PO DAILY, (Reported) TAKES 1/2 (25MG) TABLET Metformin HCl 500 Mg Tablet, 500 MG PO BID WITH MEALS, (Reported) Metoprolol Succinate 25 Mg Tab.er.24h, 25 MG PO DAILY, (Reported) Potassium Chloride 10 Meq Tablet.er, 10 MEQ PO Q48H, (Reported) Prednisone 20 Mg Tab, PO UD, (Reported) TAKE 60MG DAILY X 13 DAYS (UNTIL 12-15-17) THEN TAKE 40MG DAILY UNTIL FOLLOW UP WITH PULMONOLOGY Sennosides/Docusate Sodium 1 Each Tablet, 1 TAB PO BID, (Reported) Sulfamethoxazole/Trimethoprim 1 Each Tablet, 1 TAB PO MoWeFr, (Reported) FILLED 12-01-17 Venlafaxine HCl 37.5 Mg Tab, 37.5 MG PO DAILY, (Reported) [Allbemartín W/ C] , 1 TAB PO 1800, (Reported) Patient Home Medication List Home Medication List Reviewed: Yes Past Rcylfus-Pwcrea-Xwhbuo Hx Patient Social History Marrital Status: Alcohol Use: Denies Use Recreational Drug Use: No Smoking Status: Never a Smoker 2nd Hand Smoke Exposure: No Physical Abuse Screen: No Sexual Abuse: No Recent Foreign Travel: No Contact w/other who traveled: No Recent Hopitalizations: No Recent Infectious Disease Expo: No Immunizations Up To Date Date of Pneumonia Vaccine: Apr 06, 2016 Date of Influenza Vaccine: Apr 06, 2017 Seasonal Allergies Seasonal Allergies: No Surgeries Yes Cardiac, Section, Coronary Stent, Orthopedic Respiratory Yes (RESPIRATORY FAILURE POST-[place] AND ON HOME O2 AT 3L/[place] SINCE 07/2017) Asthma, Pneumonia Currently Using CPAP: No Currently Using BIPAP: No Cardiovascular Yes Atrial Fibrillation, Coronary Artery Disease, Heart Attack, High Cholesterol, Hypertension Neurological No Reproductive System Sexually Transmitted Disease: No HIV/AIDS: No Female Reproductive Disorders: Denies Genitourinary No Gastrointestinal No Musculoskeletal Yes Arthritis Endocrine History of Endocrine Disorders: Yes (thyroid problems) Endocrine Disorders: Hypothyroidsim HEENT History of HEENT Disorders: No Loss of Vision: Denies Hearing Impairment: Denies Cancer No Psychosocial History of Psychiatric Problem: No Integumentary History of Skin or Integumenta: No Blood Transfusions History of Blood Disorders: Yes (ANEMIA) Adverse Reaction to a Blood Tr: No Family Medical History Significant Family History: No Pertinent Family Hx Constitutional: malaise, weakness EENTM: no symptoms reported Respiratory: dyspnea on exertion, short of breath Cardiovascular: no symptoms reported Gastrointestinal: no symptoms reported Genitourinary: no symptoms reported Physical Exam Vital Signs Vital Signs - First Documented 12/08/17 12/08/17 12/08/17 09:26 09:27 11:15 Temp 95.6 Pulse 105 Resp 25 B/P (MAP) 139/85 (103) Pulse Ox 92 O2 Delivery High Flow NC O2 Flow Rate 50.00 FiO2 50 Capillary Refill : Less Than 3 Seconds Height, Weight, BMI Height: 5'0.00" Weight: 113lbs. 7.0oz. 51.655590sd; 22.2 BMI Method:Stated General Appearance: No Apparent Distress, WD/WN Eyes: Bilateral Eye Normal Inspection HEENT: Normal ENT Inspection Neck: Full Range of Motion, Normal Inspection Respiratory: No Accessory Muscle Use, No Respiratory Distress, Decreased Breath Sounds Cardiovascular: Tachycardia Gastrointestinal: Non Tender, Soft Assessment/Plan Assessment and Plan Acute and chronic respiratory failure. Hypoxia. CHF with acute exacerbation. Coronary artery disease with GA. Debility. Weakness. Autoimmune disease put on Imuran Admission Diagnosis Admission Status: Inpatient Order (span 2 midnights) Reason for Inpatient Admission: Short of breath. 10 L nasal oxygen. Autoimmune disease. COPD. CHF. Hypoxia Clinical Quality Measures DVT/VTE Risk/Contraindication: Risk Factor Score Per Nursin RFS Level Per Nursing on Admit: 4+=Very High BENNY BRITT DO Dec 08, 2017 19:19
[2017-12-08] MEDS ORDERED: TRIM/SULFAMETH 160/800 (SEPTRA DS) TAB PO SCH (19:30)
[2017-12-08] MEDS: CALCIUM CARB + VIT D 600 MG (CALCARB + D) TAB PO SCH (22:00)
[2017-12-08] MEDS: ASPIRIN 81 MG CHEW (CHILDREN'S ASA) PO SCH (22:00)
[2017-12-08] MEDS: ATORVASTATIN 80 MG (LIPITOR) TABLET PO SCH (22:00)
[2017-12-08] MEDS: RT-ADVAIR HFA 115/21 MCG PER PUFF IH SCH (22:46)
[2017-12-09] VITALS (27 sets, daily range): BP systolic 95–149; BP diastolic 55–83
[2017-12-09] MEDS: methylPREDNISolone 40 MG/ML (Solu-MEDROL) VIAL IV SCH ×2 (00:34→06:07)
[2017-12-09] MEDS: RT-ALBUTEROL/IPRATROPIUM 3 ML (DUONEB) VIAL INH SCH ×6 (02:30→20:38)
[2017-12-09 03:29] LABS: BASOPHILS % (AUTO) 0 % (0-10); EOSINOPHILS % (AUTO) 0 % (0-10); HEMATOCRIT 37 % (35-52); HEMOGLOBIN 12.8 G/DL (11.5-16.0); LYMPHOCYTES # (AUTO) 0.5 X 10^3 (1.0-4.0); LYMPHOCYTES % (AUTO) 7 % (12-44); MEAN CORPUSCULAR HEMOGLOBIN 31 PG (25-34); MEAN CORPUSCULAR HGB CONC 35 G/DL (32-36); MEAN CORPUSCULAR VOLUME 89 FL (80-99); MEAN PLATELET VOLUME 9.8 FL (7.4-10.4); MONOCYTES # (AUTO) 0.2 X 10^3 (0.0-1.0); MONOCYTES % (AUTO) 3 % (0-12); NEUTROPHILS # (AUTO) 6.5 X 10^3 (1.8-7.8); NEUTROPHILS % (AUTO) 90 % (42-75); PLATELET COUNT 202 10^3/uL (130-400); RED BLOOD COUNT 4.18 10^6/uL (4.35-5.85); RED CELL DISTRIBUTION WIDTH 14.3 % (10.0-14.5); WHITE BLOOD COUNT 7.2 10^3/uL (4.3-11.0)
[2017-12-09 03:52] LABS: BUN/CREATININE RATIO 29; CALCIUM 9.6 MG/DL (8.5-10.1); CARBON DIOXIDE 27 MMOL/L (21-32); CHLORIDE 94 MMOL/L (98-107); CREATININE SERUM 0.55 MG/DL (0.60-1.30); GFR ESTIMATED > 60; GLUCOSE 198 MG/DL (70-105); MAGNESIUM 2.2 MG/DL (1.8-2.4); PHOSPHORUS 3.7 MG/DL (2.3-4.7); POTASSIUM 4.6 MMOL/L (3.6-5.0); SODIUM 134 MMOL/L (135-145)
[2017-12-09 05:16] LABS: ABG BASE EXCESS 9.2 MMOL/L (-2.5-2.5); ABG OXYGEN SATURATION 92 % (94-100); ABG PCO2 42 MMHG (35-45); ABG PH 7.51 (7.37-7.43); ABG PO2 58 MMHG (79-93); ABG TCO2 34.4 MMOL/L (21.0-31.0)
[2017-12-09 05:17] LABS: ALLENS TEST YES-POS; INSPIRED O2 40%; VENTILATOR NO
[2017-12-09] MEDS: metFORMIN 500 MG (GLUCOPHAGE) TAB PO SCH ×2 (06:07→16:14)
[2017-12-09] MEDS: LEVOTHYROXINE 75 MCG (LEVOTHROID) TABLET PO SCH (06:07)
[2017-12-09] MEDS: RT-ADVAIR HFA 115/21 MCG PER PUFF IH SCH ×2 (06:35→20:38)
--- NOTE | 2017-12-09 06:45 | Pulmonary Progress Note ---
Subjective Time Seen by Provider: 07:15 Subjective/Events-last exam C/o SOB especially with exertion. No CP Sepsis Event Evaluation Height, Weight, BMI Height: 5'0.00" Weight: 125lbs. 7.0oz. [id number]; 22.2 BMI Method:Stated Focused Exam Lactate Level 12/08/17 10:16: Lactic Acid Level 1.34 Exam Exam Vital Signs Date Time Temp Pulse Resp B/P (MAP) Pulse Ox O2 Delivery O2 Flow Rate FiO2 12/09/17 06:16 High Flow N/C 8.00 12/09/17 06:00 86 16 115/57 (76) 97 NIV Bilevel 40.00 12/09/17 05:00 81 20 104/55 (71) 94 NIV Bilevel 40.00 12/09/17 04:00 92 19 112/60 (77) 92 NIV Bilevel 40.00 12/09/17 04:00 98 NIV Bilevel 40 12/09/17 03:00 84 19 145/75 (98) 93 NIV Bilevel 40.00 12/09/17 02:30 89 29 94 40.00 12/09/17 02:00 86 25 149/77 (101) 96 NIV Bilevel 40.00 12/09/17 01:00 88 25 144/83 (103) 95 NIV Bilevel 40.00 12/09/17 01:00 92 12/09/17 00:30 NIV Bilevel 40.00 12/09/17 00:30 92 26 95 40.00 12/09/17 00:00 91 31 130/72 (91) 100 High Flow N/C 7.00 12/09/17 00:00 98 High Flow N/C 8.00 12/08/17 23:00 91 27 132/67 (88) 98 High Flow N/C 7.00 12/08/17 22:58 High Flow N/C 7.00 12/08/17 22:57 100 Nasal Cannula 7.00 12/08/17 22:46 100 High Flow N/C 8.00 12/08/17 22:00 99 31 127/75 (92) 99 High Flow N/C 8.00 12/08/17 21:00 92 20 126/90 (102) 100 High Flow N/C 8.00 12/08/17 20:00 96 High Flow N/C 8.00 12/08/17 20:00 96 24 123/92 (102) 99 High Flow N/C 8.00 12/08/17 19:30 97.7 High Flow N/C 8.00 12/08/17 19:00 107 12/08/17 19:00 101 24 129/79 (96) 98 High Flow N/C 10.00 12/08/17 18:36 99 High Flow N/C 10.00 12/08/17 18:00 107 24 130/60 (83) 99 High Flow N/C 10.00 12/08/17 17:00 97.0 100 25 116/67 (83) 100 High Flow N/C 10.00 12/08/17 16:00 97.7 12/08/17 16:00 High Flow N/C 10.00 12/08/17 16:00 97.0 106 21 121/64 (83) 99 High Flow N/C 10.00 12/08/17 15:12 98 High Flow N/C 10.00 12/08/17 15:10 98 High Flow N/C 10.00 12/08/17 15:00 97.0 101 27 119/73 (88) 96 NIV Bilevel 50.00 12/08/17 14:55 105 37 93 40.00 12/08/17 14:00 97.0 98 19 103/46 (65) 97 NIV Bilevel 50.00 12/08/17 13:00 97.0 104 20 115/71 (86) 98 NIV Bilevel 50.00 12/08/17 13:00 105 12/08/17 12:00 97.0 108 26 122/64 (83) 96 NIV Bilevel 50.00 12/08/17 11:54 106 30 96 50.00 12/08/17 11:33 108 94 18 11:15 NIV Bilevel 50 12/08/17 11:15 97.0 115 26 102/64 (77) 92 NIV Bilevel 50.00 12/08/17 11:14 118 12/08/17 10:46 95.6 108 30 139/85 (103) 65 50.00 12/08/17 10:43 95.6 108 30 139/85 65 50.00 18 09:27 95.6 108 30 139/85 (103) 65 High Flow NC 7/16/18 09:26 105 25 92 50.00 I & O 12/09/17 07:00 Intake Total 320 ml Output Total 830 ml Balance -510 ml Height & Weight Height: 5'0.00" Weight: 125lbs. 7.0oz. 56.413581iw; 22.2 BMI Method:Stated General Appearance: WD/WN, Anxious, Mild Distress HEENT: Normal ENT Inspection Neck: Full Range of Motion, Normal Inspection Respiratory: No Accessory Muscle Use, No Respiratory Distress, Decreased Breath Sounds Cardiovascular: Tachycardia Capillary Refill: Less Than 3 Seconds Gastrointestinal: normal bowel sounds, non tender Extremity: Normal Capillary Refill, Normal Inspection, No Pedal Edema Neurologic/Psychiatric: Alert, Oriented x3 Skin: Normal Color, Warm/Dry Lymphatic: No Adenopathy Results Lab Laboratory Tests 12/08/17 09:20 12/09/17 03:00 Assessment/Plan Assessment/Plan Acute on Chronic respiratory failure - pt is close to her baseline function. 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 debility/weakness -PT/OT I have discussed patients clinical status and prognosis extensively with patient , , and medical staff. I have also reviewed all records sent from [facility]. Labs and radiology reviewed. Pt is very depressed and angry regarding her medical condition. She is frustrated she is not improving. I have also asked hospice to talk with her for education only. I have also started Zoloft for depression. Critical Care: Critically Ill Patient Time spent with patient (mins): 120 JUANA WILLS DO Dec 09, 2017 06:45
[2017-12-09] MEDS ORDERED: FUROSEMIDE 20 MG (LASIX) TAB PO SCH (07:28)
--- NOTE | 2017-12-09 07:31 | Progress Note (SOAP) ---
Subjective Time Seen by Provider: 07:25 Subjective/Events-last exam Patient states she is trying. Patient is depressed. Patient states her oxygen has been decreased a little Focused Exam Lactate Level 12/08/17 10:16: Lactic Acid Level 1.34 Objective Exam Vital Signs Date Time Temp Pulse Resp B/P (MAP) Pulse Ox O2 Delivery O2 Flow Rate FiO2 12/09/17 06:50 High Flow N/C 4.00 12/09/17 06:49 Nasal Cannula 4.00 12/09/17 06:35 100 High Flow N/C 7.00 12/09/17 06:16 High Flow N/C 8.00 12/09/17 06:00 86 16 115/57 (76) 97 NIV Bilevel 40.00 12/09/17 05:00 81 20 104/55 (71) 94 NIV Bilevel 40.00 12/09/17 04:00 92 19 112/60 (77) 92 NIV Bilevel 40.00 12/09/17 04:00 98 NIV Bilevel 40 12/09/17 03:00 84 19 145/75 (98) 93 NIV Bilevel 40.00 12/09/17 02:30 89 29 94 40.00 12/09/17 02:00 86 25 149/77 (101) 96 NIV Bilevel 40.00 12/09/17 01:00 88 25 144/83 (103) 95 NIV Bilevel 40.00 12/09/17 01:00 92 12/09/17 00:30 NIV Bilevel 40.00 12/09/17 00:30 92 26 95 40.00 12/09/17 00:00 91 31 130/72 (91) 100 High Flow N/C 7.00 12/09/17 00:00 98 High Flow N/C 8.00 12/08/17 23:00 91 27 132/67 (88) 98 High Flow N/C 7.00 12/08/17 22:58 High Flow N/C 7.00 12/08/17 22:57 100 Nasal Cannula 7.00 12/08/17 22:46 100 High Flow N/C 8.00 12/08/17 22:00 99 31 127/75 (92) 99 High Flow N/C 8.00 12/08/17 21:00 92 20 126/90 (102) 100 High Flow N/C 8.00 12/08/17 20:00 96 High Flow N/C 8.00 12/08/17 20:00 96 24 123/92 (102) 99 High Flow N/C 8.00 12/08/17 19:30 97.7 High Flow N/C 8.00 12/08/17 19:00 107 12/08/17 19:00 101 24 129/79 (96) 98 High Flow N/C 10.00 12/08/17 18:36 99 High Flow N/C 10.00 12/08/17 18:00 107 24 130/60 (83) 99 High Flow N/C 10.00 12/08/17 17:00 97.0 100 25 116/67 (83) 100 High Flow N/C 10.00 12/08/17 16:00 97.7 12/08/17 16:00 High Flow N/C 10.00 12/08/17 16:00 97.0 106 21 121/64 (83) 99 High Flow N/C 10.00 12/08/17 15:12 98 High Flow N/C 10.00 12/08/17 15:10 98 High Flow N/C 10.00 12/08/17 15:00 97.0 101 27 119/73 (88) 96 NIV Bilevel 50.00 12/08/17 14:55 105 37 93 40.00 12/08/17 14:00 97.0 98 19 103/46 (65) 97 NIV Bilevel 50.00 12/08/17 13:00 97.0 104 20 115/71 (86) 98 NIV Bilevel 50.00 12/08/17 13:00 105 12/08/17 12:00 97.0 108 26 122/64 (83) 96 NIV Bilevel 50.00 12/08/17 11:54 106 30 96 50.00 12/08/17 11:33 108 94 12/08/17 11:15 NIV Bilevel 50 12/08/17 11:15 97.0 115 26 102/64 (77) 92 NIV Bilevel 50.00 12/08/17 11:14 118 12/08/17 10:46 95.6 108 30 139/85 (103) 65 50.00 12/08/17 10:43 95.6 108 30 139/85 65 50.00 12/08/17 09:27 95.6 108 30 139/85 (103) 65 High Flow NC 12/08/17 09:26 105 25 92 50.00 I & O 12/09/17 07:00 Intake Total 320 ml Output Total 830 ml Balance -510 ml Capillary Refill : Less Than 3 Seconds General Appearance: No Apparent Distress, WD/WN HEENT: Normal ENT Inspection Neck: Full Range of Motion, Normal Inspection Respiratory: No Accessory Muscle Use, No Respiratory Distress, Decreased Breath Sounds, Other (Minimal accessory muscle use) Cardiovascular: Regular Rate, Rhythm, No Murmur Gastrointestinal: non tender, soft Results Lab Laboratory Tests 12/08/17 09:20: White Blood Count 10.4, Red Blood Count 4.52, Hemoglobin 14.1, Hematocrit 41, Mean Corpuscular Volume 91, Mean Corpuscular Hemoglobin 31, Mean Corpuscular Hemoglobin Concent 34, Red Cell Distribution Width 14.3, Platelet Count 229, Mean Platelet Volume 9.8, Neutrophils (%) (Auto) 66, Lymphocytes (%) (Auto) 22, Monocytes (%) (Auto) 7, Eosinophils (%) (Auto) 4, Basophils (%) (Auto) 1, Neutrophils # (Auto) 6.8, Lymphocytes # (Auto) 2.3, Monocytes # (Auto) 0.7, Eosinophils # (Auto) 0.5H, Basophils # (Auto) 0.1, Sodium Level 133L, Potassium Level 4.4, Chloride Level 97L, Carbon Dioxide Level 27, Anion Gap 9, Blood Urea Nitrogen 18, Creatinine 0.61, Estimat Glomerular Filtration Rate > 60, BUN/ Creatinine Ratio 30, Glucose Level 146H, Calcium Level 9.5, Total Bilirubin 0.9 , Aspartate Amino Transf (AST/SGOT) 31, Alanine Aminotransferase (ALT/SGPT) 40, Alkaline Phosphatase 60, Troponin I < 0.30, B-Type Natriuretic Peptide 96.2, Total Protein 6.9, Albumin 3.6 12/08/17 10:16: Lactic Acid Level 1.34 12/08/17 10:25: Urine Color YELLOW, Urine Clarity CLEAR, Urine pH 7, Urine Specific [place] 1.005L, Urine Protein NEGATIVE, Urine Glucose (UA) NEGATIVE, Urine Ketones NEGATIVE, Urine Nitrite NEGATIVE, Urine Bilirubin NEGATIVE, Urine Urobilinogen NORMAL, Urine Leukocyte Esterase 3+H, Urine RBC (Auto) NEGATIVE, Urine RBC NONE , Urine WBC 2-5, Urine Squamous Epithelial Cells RARE, Urine Crystals NONE, Urine Bacteria NEGATIVE, Urine Casts NONE, Urine Mucus NEGATIVE, Urine Culture Indicated NO 12/08/17 11:25: 12/08/17 11:51: Blood Gas Puncture Site L BRACHIAL, Blood Gas Patient Temperature 97.6, Arterial Blood pH 7.46H, Arterial Blood Partial Pressure CO2 42, Arterial Blood Partial Pressure O2 82, Arterial Blood HCO3 30H, Arterial Blood Total CO2 30.9, Arterial Blood Oxygen Saturation 98, Arterial Blood Base Excess 5.6H, Corey Test YES-POS, Blood Gas Ventilator Setting NO, Blood Gas Inspired Oxygen 50% 12/09/17 03:00: White Blood Count 7.2, Red Blood Count 4.18L, Hemoglobin 12.8, Hematocrit 37, Mean Corpuscular Volume 89, Mean Corpuscular Hemoglobin 31, Mean Corpuscular Hemoglobin Concent 35, Red Cell Distribution Width 14.3, Platelet Count 202, Mean Platelet Volume 9.8, Neutrophils (%) (Auto) 90H, Lymphocytes (%) (Auto) 7L , Monocytes (%) (Auto) 3, Eosinophils (%) (Auto) 0, Basophils (%) (Auto) 0, Neutrophils # (Auto) 6.5, Lymphocytes # (Auto) 0.5L, Monocytes # (Auto) 0.2, Eosinophils # (Auto) 0.0, Basophils # (Auto) 0.0, Sodium Level 134L, Potassium Level 4.6, Chloride Level 94L, Carbon Dioxide Level 27, Anion Gap 13, Blood Urea Nitrogen 16, Creatinine 0.55L, Estimat Glomerular Filtration Rate > 60, BUN /Creatinine Ratio 29, Glucose Level 198H, Calcium Level 9.6, Phosphorus Level 3.7, Magnesium Level 2.2 12/09/17 05:05: Blood Gas Puncture Site RIGHT RADIAL, Blood Gas Patient Temperature 97.0, Arterial Blood pH 7.51H, Arterial Blood Partial Pressure CO2 42, Arterial Blood Partial Pressure O2 58L, Arterial Blood HCO3 33H, Arterial Blood Total CO2 34.4H , Arterial Blood Oxygen Saturation 92L, Arterial Blood Base Excess 9.2H, Corey Test YES-POS, Blood Gas Ventilator Setting NO, Blood Gas Inspired Oxygen 40% Assessment/Plan Assessment/Plan Assess & Plan/Chief Complaint Acute on chronic respiratory failure. Depression. Congestive heart failure acute exacerbation. Debility. Patient looks sad today Clinical Quality Measures Admission Status Admission Dx Acute and chronic respiratory failure. Hypoxia. CHF with acute exacerbation. Coronary artery disease with AK. Debility. Weakness. Autoimmune disease put on Imuran DVT/VTE Risk/Contraindication: Risk Factor Score Per Nursin RFS Level Per Nursing on Admit: 4+=Very High ABRAM BRITT DO Dec 09, 2017 07:31
--- NOTE | 2017-12-09 07:36 | Diagnostic Imaging Report ---
There is subcutaneous gas along the right chest wall. However, no visible pneumothorax is seen. There is no effusion. Osseous structures are age-appropriate. Impression: 1. No discernible pneumothorax. 2. New subcutaneous emphysema along the right chest wall. 3. Unchanged aeration. Dictated by: Dictated on workstation # [id number]
[2017-12-09] MEDS: LOSARTAN 25 MG (COZAAR) TAB PO SCH (08:04)
[2017-12-09] MEDS: CLOPIDOGREL 75 MG (PLAVIX) TABLET PO SCH (08:05)
[2017-12-09] MEDS: CALCIUM CARB + VIT D 600 MG (CALCARB + D) TAB PO SCH ×2 (08:05→20:04)
[2017-12-09] MEDS: azaTHIOprine (IMURAN) 50 MG TAB PO SCH (08:05)
[2017-12-09] MEDS ORDERED: KCL 10 MEQ TAB (MICRO K) PO SCH (09:00)
[2017-12-09] MEDS ORDERED: SERTRALINE 50 MG (ZOLOFT) TABLET PO SCH ×2 (09:00→21:00)
[2017-12-09] MEDS ORDERED: FUROSEMIDE 40 MG (LASIX) TAB PO SCH (09:00)
[2017-12-09] MEDS ORDERED: VENlafaxine 37.5 MG (EFFEXOR) TAB PO SCH (09:00)
--- NOTE | 2017-12-09 10:46 | Physical Therapy Evaluation ---
PT Evaluation-General Medical Diagnosis Admission Date Dec 08, 2017 at 09:52 Medical Diagnosis: respiratory failure Onset Date: Dec 08, 2017 Therapy Diagnosis Therapy Diagnosis: debility/decreased pulmonary function Height/Weight Height (Feet): 5 Height (Inches): 0.00 Weight (Pounds): 125 Weight (Ounces): 7.0 Precautions Precautions/Isolations: Fall Prevention, Standard Precautions Weight Bear Status Right Lower Extremity: Right Full Weight Bearing Left Lower Extremity: Left Full Weight Bearing Referral Physician: Avelina Reason for Referral: Evaluation/Treatment Medical History Pertinent Medical History: CAD, Heart Failure, HTN, Hypothroidism Additional Medical History depression Current History ED with SOB/recent dismissal from [facility]. Reviewed History: Yes Social History Home: Single Level Current Living Status: Spouse Prior/Core FIM Prior Level of Function Functional [place] Measure 0=Not Assessed/NA 4=Minimal Assistance 1=Total Assistance 5=Supervision or Setup 2=Maximal Assistance 6=Modified [place] 3=Moderate Assistance 7=Complete [place] Bed Mobility: 6 Transfers (B,C,W/C) (FIM): 6 Gait: 6 O2 and FWW for home use PT Evaluation-Current Subjective Patient is very reluctant to participate with PT. Agrees after discussed with patient that Dr. Quan wants O2 HF NC 8-10L with activity. Pain Numeric Pain Scale: 0-No Pain Location: No Pain Reported Objective Patient Orientation: Normal For Age Problem Solving: Fair Attachments: Oxygen (10L HF NC with activity) ROM/Strength ROM Lower Extremities bilateral LE WFL Strength Lower Extremities bilateral LE 4-/5 grossly Integumentary/Posture Integumentary refer to nursing notes Bowel Incontinence: No Bladder Incontinence: No Posture WFL Neuromuscular (Tone, Coordination, Reflexes) grossly intact Sensory Vision: Wears Glasses Hearing: Functional Sensation Right Lower Extremit: Intact Sensation Left Lower Extremity: Intact Transfers Functional [place] Measure 0=Not Assessed/NA 4=Minimal Assistance 1=Total Assistance 5=Supervision or Setup 2=Maximal Assistance 6=Modified [place] 3=Moderate Assistance 7=Complete [place] Transfers (B, C, W/C) (FIM): 5 Scootin Supine to/from Sit: 5 Sit to/from Stand: 5 Gait Mode of Locomotion: Walk Anticipated Mode of Locomotion: Walk Gait (FIM): 1 Distance (FIM): 1=up to 49 ft Distance: 3 steps Gait Level of Assist: 5 Gait Assistive Device: FWW Comments/Gait Description slightly unsteady with self correct. Limited due to SOA. Balance Sitting Static: Normal Sitting Dynamic: Normal Standing Static: Fair Standing Dynamic: Fair Assessment/Needs 72 y.o. female, will benefit from skilled PT to address pulmonary function with functional mobility to improve current LOF. Patient has had multiple hospital stays for respiratory distress/failure. Patient reports she is getting very frustrated and depressed. RN in room during treatment. Rehab Potential: Guarded Post Rehab Potential-Barriers: respiratory failure PT Beater Engineer Goals Beater Engineer Goals PT Beater Engineer Goals Time Frame: Dec 26, 2017 Transfers (B,C,W/C) (FIM): 6 Gait (FIM): 2 Gait distance (FIM): 2=892-83 ft Distance: 125' Gait Level of Assist: 5 Gait Assistive Device: FWW PT Plan Problem List Problem List: Activity Tolerance, Functional Strength, Balance, Gait Treatment/Plan Treatment Plan: Continue Plan of Care Treatment Plan: Education, Functional Activity Herb, Functional Strength, Gait , Safety, Therapeutic Exercise Treatment Duration: Dec 26, 2017 Frequency: 6 times per week Estimated Hrs Per Day: .5 hour per day Patient and/or Family Agrees t: Yes Discharge Recommendations Therapy D/C Recommendations: Home w/ Family Support, Physical Therapy Home Care Time/GCodes Time In: 1013 Time Out: 1033 Total Billed Treatment Time: 20 Total Billed Treatment 1 visit EVModC 20 min G Codes Necessary: SOFIE Santos PT Dec 09, 2017 10:46
[2017-12-09] MEDS: predniSONE 20 MG TAB PO SCH (11:30)
--- NOTE | 2017-12-09 11:58 | Occupational Therapy Eval ---
OT Evaluation-General/PLF Medical Diagnosis Admission Date Dec 08, 2017 at 09:52 Medical Diagnosis: respiratory failure Onset Date: Dec 08, 2017 Therapy Diagnosis Therapy Diagnosis: decr self care, weakness, decr activity tolerance, decr funct mobility Height/Weight Height (Feet): 5 Height (Inches): 0.00 Weight (Pounds): 125 Weight (Ounces): 7.0 Precautions Precautions/Isolations: Fall Prevention, Standard Precautions Safety Interventions: None Referral Physician: Avelina Referral Reason: Evaluation/Treatment Medical History Pertinent Medical History: Atrial Fib, CAD, Heart Failure, HTN, Hypothroidism, CT Additional Medical History Coronary stent, respiratory failure post CT, pneumonia, anemia Current History Admitted from ED with acute respiratory failure with hypoxia. Also CHF, COPD, depression, autoimmune disease. Pt reported new diagnosis interstitial lung disease Reviewed History: Yes Social History Home: Multilevel Current Living Status: Spouse She said she does not need to go upstairs in her home ADL-Prior Level of Function ADL PLOF Comments Pt stated that she was previously independent with ADLs at home. She used a cane to ambulate in the community but needed no AD at home. She was recently hospitalized here and then transferred to . She was discharge to home last Friday and said that she was not able to manage her basic self care due to decreased O2 and had turned O2 up to 10L/min at home. DME/Equipment: Bath Chair, Tub/Shower OT Current Status Subjective Pt seen in room, up in recliner, agreeable to OT. Pain reported 0/10. Appearance Alert, cooperative Current Glasses/Contacts: Yes Upper Extremity ROM Grossly WFL bilat Upper Extremity Strength Grossly 4/5 bilat ADL-Treatment ADL-Current Pt's O2 sats dropped to 86% after testing strength bilat UEs. it took a couple of minutes for sats to come back up to 90%, with O2 at 4L/min nc. Pt doing pursed lip breathing. Pt reported that she was too exhausted to walk with PT and just got up with SBA, FWW to recliner placed by bed. Functional [place] Measure 0=Not Assessed/NA 4=Minimal Assistance 1=Total Assistance 5=Supervision or Setup 2=Maximal Assistance 6=Modified [place] 3=Moderate Assistance 7=Complete IndependenceIRFPAI Quality Coding Scale 6 Independent with activity with or without an assistive device 5 Patient requires set up or clean up by helper. Patient completes activity by themselves 4 Supervision or touching assist (CGA). [place] provide cues , steadying assist 3 The helper provides less than half the effort to complete the activity 2 The helper provides more than half the effort to complete the activity 1 Dependent. The helper does all the effort to complete an activity 7 Patient refused to complete or attempt activity 9 The patient did not perform the activity before the current illness or injury 88 Not attempted due to Medical conditions or safety concerns Education OT Patient Education: Purpose of tx/functional activities, Rehab process Teaching Recipient: Patient Teaching Methods: Discussion Response to Teaching: Verbalize Understanding OT Assisted Goals Assisted Goals Time Frame: Dec 23, 2017 Eating (FIM): 6 Grooming(FIM): 6 Bathing(FIM): 6 Upper Body Dressing(FIM): 6 Lower Body Dressing(FIM): 6 Toileting(FIM): 6 Toilet/Commode Transfer(FIM): 6 Shower Transfer(FIM): 6 Additional Goals: 1-Demonstrate ADL Tasks, 2-Verbalize Understanding, 3- ImproveStrength/Herb 1=Demonstrate adherence to instructed precautions during ADL tasks. 2=Patient will verbalize/demonstrate understanding of assistive devices/ modifications for ADL. 3=Patient will improve strength/tolerance for activity to enable patient to perform ADL's. OT Education/Plan Problem List/Assessment Assessment: Decreased Activ Tolerance, Decreased UE Strength, Dependent Transfers, Impaired Self-Care Skills Discharge Recommendations Plan/Recommendations: Continue POC Treatment Plan/Plan of Care Treatment,Training & Education: Yes Patient would benefit from OT for education, treatment and training to promote independence in ADL's, mobility, safety and/or upper extremity function for ADL' s. Plan of Care: ADL Retraining, Functional Mobility, UE Funct Exercise/Act, OTHER (energy conservation education) Treatment Duration: Dec 23, 2017 Frequency: 5 times per week Estimated Hrs Per Day: .5 hour per day Agreement: Yes Rehab Potential: Guarded Time/GCodes Start Time: 11:25 Stop Time: 11:35 Total Time Billed (hr/min): 10 Billed Treatment Time visit, 10 minutes evaluation moderate intensity FER MOSS OT Dec 09, 2017 11:58
[2017-12-09] MEDS: ASPIRIN 81 MG CHEW (CHILDREN'S ASA) PO SCH (20:04)
[2017-12-09] MEDS: ATORVASTATIN 80 MG (LIPITOR) TABLET PO SCH (20:04)
[2017-12-10] VITALS (14 sets, daily range): BP systolic 101–126; BP diastolic 49–70
[2017-12-10] MEDS: RT-ALBUTEROL/IPRATROPIUM 3 ML (DUONEB) VIAL INH SCH ×3 (01:37→09:24)
[2017-12-10 03:42] LABS: BASOPHILS % (AUTO) 0 % (0-10); EOSINOPHILS % (AUTO) 0 % (0-10); HEMATOCRIT 33 % (35-52); HEMOGLOBIN 11.5 G/DL (11.5-16.0); LYMPHOCYTES # (AUTO) 0.8 X 10^3 (1.0-4.0); LYMPHOCYTES % (AUTO) 7 % (12-44); MEAN CORPUSCULAR HEMOGLOBIN 31 PG (25-34); MEAN CORPUSCULAR HGB CONC 35 G/DL (32-36); MEAN CORPUSCULAR VOLUME 89 FL (80-99); MONOCYTES # (AUTO) 0.7 X 10^3 (0.0-1.0); MONOCYTES % (AUTO) 6 % (0-12); NEUTROPHILS # (AUTO) 9.6 X 10^3 (1.8-7.8); NEUTROPHILS % (AUTO) 87 % (42-75); PLATELET COUNT 206 10^3/uL (130-400); RED BLOOD COUNT 3.73 10^6/uL (4.35-5.85); RED CELL DISTRIBUTION WIDTH 14.1 % (10.0-14.5)
[2017-12-10 04:02] LABS: BUN/CREATININE RATIO 37; CALCIUM 9.6 MG/DL (8.5-10.1); CARBON DIOXIDE 32 MMOL/L (21-32); CHLORIDE 93 MMOL/L (98-107); CREATININE SERUM 0.51 MG/DL (0.60-1.30); GFR ESTIMATED > 60; GLUCOSE 139 MG/DL (70-105); MAGNESIUM 1.9 MG/DL (1.8-2.4); PHOSPHORUS 2.4 MG/DL (2.3-4.7); POTASSIUM 4.4 MMOL/L (3.6-5.0); SODIUM 131 MMOL/L (135-145)
[2017-12-10] MEDS: LEVOTHYROXINE 75 MCG (LEVOTHROID) TABLET PO SCH (05:56)
[2017-12-10] MEDS: LACTATED RINGERS 1,000 ML IV SCH ×2 (06:02→10:18)
--- NOTE | 2017-12-10 06:05 | Pulmonary Progress Note ---
Subjective Time Seen by Provider: 06:04 Subjective/Events-last exam c/o SOB rajan with exertion. Sepsis Event Evaluation Height, Weight, BMI Height: 5'0.00" Weight: 125lbs. 7.0oz. 56.022942kp; 22.2 BMI Method:Stated Focused Exam Lactate Level 12/08/17 10:16: Lactic Acid Level 1.34 Exam Exam Vital Signs Date Time Temp Pulse Resp B/P (MAP) Pulse Ox O2 Delivery O2 Flow Rate FiO2 12/10/17 04:00 75 20 108/64 (79) 96 High Flow N/C 4.00 12/10/17 04:00 94 High Flow N/C 4.00 12/10/17 03:00 83 16 101/55 (70) 98 High Flow N/C 4.00 12/10/17 02:00 85 15 113/49 (70) 98 High Flow N/C 4.00 12/10/17 01:39 97 High Flow N/C 4.00 12/10/17 01:00 82 16 105/63 (77) 96 High Flow N/C 4.00 12/10/17 01:00 82 12/10/17 00:00 99 23 111/70 (84) 95 High Flow N/C 4.00 12/10/17 00:00 94 High Flow N/C 4.00 12/09/17 23:41 96.9 12/09/17 23:00 92 27 111/61 (78) 94 High Flow N/C 4.00 12/09/17 22:00 111 16 103/56 (72) 97 High Flow N/C 4.00 12/09/17 21:00 101 27 104/69 (81) 100 High Flow N/C 4.00 12/09/17 20:40 Nasal Cannula 4.00 12/09/17 20:39 98 High Flow N/C 4.00 12/09/17 20:04 98.2 12/09/17 20:00 96 20 95/67 (76) 94 High Flow N/C 4.00 12/09/17 20:00 98 High Flow N/C 4.00 12/09/17 19:00 113 26 116/62 (80) 93 High Flow N/C 4.00 12/09/17 19:00 113 12/09/17 18:00 101 41 112/57 (75) 95 High Flow N/C 4.00 12/09/17 17:00 93 27 109/64 (79) 99 High Flow N/C 4.00 12/09/17 16:00 103 24 115/62 (79) 91 High Flow N/C 4.00 12/09/17 15:55 95 High Flow N/C 4.00 12/09/17 15:54 98.8 12/09/17 15:00 98 33 116/67 (83) 98 High Flow N/C 4.00 12/09/17 14:56 96 High Flow N/C 4.00 12/09/17 14:00 98 48 113/59 (77) 96 High Flow N/C 4.00 12/09/17 13:00 95 27 113/67 (82) 98 High Flow N/C 4.00 12/09/17 13:00 95 12/09/17 12:00 93 28 119/68 (85) 96 High Flow N/C 4.00 12/09/17 11:27 94 High Flow N/C 4.00 12/09/17 11:26 98.0 12/09/17 11:00 96 27 121/66 (84) 98 High Flow N/C 4.00 12/09/17 10:03 97 High Flow N/C 4.00 12/09/17 10:00 98 25 122/64 (83) 99 High Flow N/C 4.00 12/09/17 09:00 85 15 124/62 (82) 100 High Flow N/C 4.00 12/09/17 08:03 98.2 110 24 115/60 (78) 98 High Flow N/C 4.00 12/09/17 08:00 98 Nasal Cannula 4.00 12/09/17 08:00 98 14 115/60 (78) 99 High Flow N/C 4.00 12/09/17 07:00 107 29 133/78 (96) 97 High Flow N/C 4.00 12/09/17 07:00 107 12/09/17 06:50 High Flow N/C 4.00 12/09/17 06:49 Nasal Cannula 4.00 12/09/17 06:35 100 High Flow N/C 7.00 12/09/17 06:16 High Flow N/C 8.00 I & O 12/10/17 07:00 Intake Total 1697 ml Output Total 460 ml Balance 1237 ml Height & Weight Height: 5'0.00" Weight: 125lbs. 7.0oz. 56.601641ys; 22.2 BMI Method:Stated General Appearance: WD/WN, Anxious, Mild Distress HEENT: Normal ENT Inspection Neck: Full Range of Motion, Normal Inspection Respiratory: No Accessory Muscle Use, No Respiratory Distress, Decreased Breath Sounds Cardiovascular: Tachycardia Capillary Refill: Less Than 3 Seconds Gastrointestinal: normal bowel sounds, non tender Extremity: Normal Capillary Refill, Normal Inspection, No Pedal Edema Neurologic/Psychiatric: Alert, Oriented x3 Skin: Normal Color, Warm/Dry Lymphatic: No Adenopathy Results Lab Laboratory Tests 12/08/17 09:20 12/09/17 03:00 12/10/17 03:10 Assessment/Plan Assessment/Plan Acute on Chronic respiratory failure - pt is close to her baseline function. -D/C [facility] ILD with hx of heavy black mold exposure NEver smoker CHFAE - hx of diastolic CHF EF 60% -Cardiology following -Last Echo showed mild diastolic disfuntion with RSVP 25-30 Decrease UO -Will give 1 liter LR over 4 hrs -Hold lasix today CAD recent SD with stent placement. debility/weakness -PT/OT JUANA WILLS DO Dec 10, 2017 06:05
--- NOTE | 2017-12-10 07:33 | Progress Note (SOAP) ---
Subjective Time Seen by Provider: 07:30 Subjective/Events-last exam Patient feeling better and doing better. Patient breathing better. Plan to discharge today. Patient had a good night Focused Exam Lactate Level 12/08/17 10:16: Lactic Acid Level 1.34 Objective Exam Vital Signs Date Time Temp Pulse Resp B/P (MAP) Pulse Ox O2 Delivery O2 Flow Rate FiO2 12/10/17 06:23 Nasal Cannula 4.00 12/10/17 06:22 93 High Flow N/C 4.00 12/10/17 06:00 94 22 124/66 (85) 96 High Flow N/C 4.00 12/10/17 05:00 76 17 111/64 (80) 97 High Flow N/C 4.00 12/10/17 04:00 75 20 108/64 (79) 96 High Flow N/C 4.00 12/10/17 04:00 94 High Flow N/C 4.00 12/10/17 03:41 96.8 12/10/17 03:00 83 16 101/55 (70) 98 High Flow N/C 4.00 12/10/17 02:00 85 15 113/49 (70) 98 High Flow N/C 4.00 12/10/17 01:39 97 High Flow N/C 4.00 12/10/17 01:00 82 16 105/63 (77) 96 High Flow N/C 4.00 12/10/17 01:00 82 12/10/17 00:00 99 23 111/70 (84) 95 High Flow N/C 4.00 12/10/17 00:00 94 High Flow N/C 4.00 12/09/17 23:41 96.9 12/09/17 23:00 92 27 111/61 (78) 94 High Flow N/C 4.00 12/09/17 22:00 111 16 103/56 (72) 97 High Flow N/C 4.00 12/09/17 21:00 101 27 104/69 (81) 100 High Flow N/C 4.00 12/09/17 20:40 Nasal Cannula 4.00 12/09/17 20:39 98 High Flow N/C 4.00 12/09/17 20:04 98.2 12/09/17 20:00 96 20 95/67 (76) 94 High Flow N/C 4.00 12/09/17 20:00 98 High Flow N/C 4.00 12/09/17 19:00 113 26 116/62 (80) 93 High Flow N/C 4.00 12/09/17 19:00 113 12/09/17 18:00 101 41 112/57 (75) 95 High Flow N/C 4.00 12/09/17 17:00 93 27 109/64 (79) 99 High Flow N/C 4.00 12/09/17 16:00 103 24 115/62 (79) 91 High Flow N/C 4.00 12/09/17 15:55 95 High Flow N/C 4.00 12/09/17 15:54 98.8 12/09/17 15:00 98 33 116/67 (83) 98 High Flow N/C 4.00 12/09/17 14:56 96 High Flow N/C 4.00 12/09/17 14:00 98 48 113/59 (77) 96 High Flow N/C 4.00 12/09/17 13:00 95 27 113/67 (82) 98 High Flow N/C 4.00 12/09/17 13:00 95 12/09/17 12:00 93 28 119/68 (85) 96 High Flow N/C 4.00 12/09/17 11:27 94 High Flow N/C 4.00 12/09/17 11:26 98.0 12/09/17 11:00 96 27 121/66 (84) 98 High Flow N/C 4.00 12/09/17 10:03 97 High Flow N/C 4.00 12/09/17 10:00 98 25 122/64 (83) 99 High Flow N/C 4.00 12/09/17 09:00 85 15 124/62 (82) 100 High Flow N/C 4.00 12/09/17 08:03 98.2 110 24 115/60 (78) 98 High Flow N/C 4.00 12/09/17 08:00 98 Nasal Cannula 4.00 12/09/17 08:00 98 14 115/60 (78) 99 High Flow N/C 4.00 I & O 12/10/17 07:00 Intake Total 1772 ml Output Total 560 ml Balance 1212 ml Capillary Refill : Less Than 3 Seconds General Appearance: No Apparent Distress, WD/WN HEENT: Normal ENT Inspection Neck: Full Range of Motion, Normal Inspection Respiratory: No Accessory Muscle Use, No Respiratory Distress, Decreased Breath Sounds, Other (Crackles less) Cardiovascular: Regular Rate, Rhythm, No Murmur Gastrointestinal: non tender, soft Results Lab Laboratory Tests 12/10/17 03:10: White Blood Count 11.0, Red Blood Count 3.73L, Hemoglobin 11.5, Hematocrit 33L, Mean Corpuscular Volume 89, Mean Corpuscular Hemoglobin 31, Mean Corpuscular Hemoglobin Concent 35, Red Cell Distribution Width 14.1, Platelet Count 206, Mean Platelet Volume 10.0, Neutrophils (%) (Auto) 87H, Lymphocytes (%) (Auto) 7L , Monocytes (%) (Auto) 6, Eosinophils (%) (Auto) 0, Basophils (%) (Auto) 0, Neutrophils # (Auto) 9.6H, Lymphocytes # (Auto) 0.8L, Monocytes # (Auto) 0.7, Eosinophils # (Auto) 0.0, Basophils # (Auto) 0.0, Sodium Level 131L, Potassium Level 4.4, Chloride Level 93L, Carbon Dioxide Level 32, Anion Gap 6, Blood Urea Nitrogen 19H, Creatinine 0.51L, Estimat Glomerular Filtration Rate > 60, BUN/ Creatinine Ratio 37, Glucose Level 139H, Calcium Level 9.6, Phosphorus Level 2.4 , Magnesium Level 1.9 Microbiology 12/08/17 Blood Culture - Preliminary, Resulted No growth Assessment/Plan Assessment/Plan Assess & Plan/Chief Complaint Acute on chronic respiratory failure. Depression. Congestive heart failure acute exacerbation. Debility. Patient looks sad today. . 12/10/17. Feeling better and breathing better. Patient to be discharged today. Acute and chronic respiratory failure. Depression. Congestive heart failure with acute exacerbation. Debility Clinical Quality Measures Admission Status Admission Dx Acute and chronic respiratory failure. Hypoxia. CHF with acute exacerbation. Coronary artery disease with [place]. Debility. Weakness. Autoimmune disease put on Imuran DVT/VTE Risk/Contraindication: Risk Factor Score Per Nursin RFS Level Per Nursing on Admit: 4+=Very High ABRAM BRITT DO Dec 10, 2017 07:33
[2017-12-10] MEDS ORDERED: VENL75CA PO (07:42)
[2017-12-10] MEDS ORDERED: VENlafaxine XR 75 MG (EFFEXOR XR) CAP PO NR (07:45)
--- NOTE | 2017-12-10 07:45 | Discharge Inst-Simple/Standard ---
Discharge Inst-Standard Patient Instructions/Follow Up Plan of Care/Instructions/FU: 2 office in one week. Make appointment with Dr. Quan. To use bedside commode. To keep appointment at [facility] Activity as Tolerated: Yes Discharge Diet: Cardiac Diet Return to The Hospital For: Shortness of breath ABRAM BRITT DO Dec 10, 2017 07:45
--- NOTE | 2017-12-10 07:51 | Diagnostic Imaging Report ---
INDICATION: Respiratory failure. COMPARISON: 12/09/2017. FINDINGS: Subcutaneous air along right lateral chest has decreased. Both lungs show poor inspiratory volume. Diffuse bilateral dense interstitial infiltrates with mild nodular alveolar infiltrates are again present. No evidence of pleural effusion. No pneumothorax is demonstrated. The heart is not enlarged. IMPRESSION: 1. Decreasing subcutaneous air on the right. 2. Diffuse interstitial and alveolar infiltrates with poor lung volume again noted. Dictated by: Dictated on workstation # [id number]
[2017-12-10] MEDS: LOSARTAN 25 MG (COZAAR) TAB PO SCH (08:12)
[2017-12-10] MEDS: predniSONE 20 MG TAB PO SCH (08:13)
[2017-12-10] MEDS: CALCIUM CARB + VIT D 600 MG (CALCARB + D) TAB PO SCH (08:13)
[2017-12-10] MEDS: azaTHIOprine (IMURAN) 50 MG TAB PO SCH (08:13)
[2017-12-10] MEDS: CLOPIDOGREL 75 MG (PLAVIX) TABLET PO SCH (08:13)
[2017-12-10] MEDS: metFORMIN 500 MG (GLUCOPHAGE) TAB PO SCH (08:13)
[2017-12-10] MEDS ORDERED: SERTRALINE 50 MG (ZOLOFT) TABLET PO SCH (09:00)
[2017-12-10] MEDS: RT-ADVAIR HFA 115/21 MCG PER PUFF IH SCH (09:24)
--- NOTE | 2017-12-10 09:31 | Physical Therapy Daily Note ---
PT Daily Note-Current Subjective Patient in bed pre tx, agrees to PT, no complaints of pain. Appearance Patient in recliner post tx with nurse call, phone, tray, all needs met. Mental Status Patient Orientation: Normal For Age Attachments: Oxygen, IV Transfers Functional [place] Measure 0=Not Assessed/NA 4=Minimal Assistance 1=Total Assistance 5=Supervision or Setup 2=Maximal Assistance 6=Modified [place] 3=Moderate Assistance 7=Complete IndependenceIRFPAI Quality Coding Scale 6 Independent with activity with or without an assistive device 5 Patient requires set up or clean up by helper. Patient completes activity by themselves 4 Supervision or touching assist (CGA). [place] provide cues , steadying assist 3 The helper provides less than half the effort to complete the activity 2 The helper provides more than half the effort to complete the activity 1 Dependent. The helper does all the effort to complete an activity 7 Patient refused to complete or attempt activity 9 The patient did not perform the activity before the current illness or injury 88 Not attempted due to Medical conditions or safety concerns Transfers (B, C, W/C) (FIM): 5 Scootin Rollin Supine to/from Sit: 5 Sit to/from Stand: 5 Bed to/from Chair: 5 Weight Bearing Right Lower Extremity: Right Full Weight Bearing Left Lower Extremity: Left Full Weight Bearing Gait Training Gait (FIM): 1 Distance: 6'x2, 3' Gait Level of Assist: 5 Gait Persons Needed: 1 Gait Assistive Device: FWW Patient ambulated forward 3' and back 3' x2 and then ambulated to a recliner close to the bed. Ambulation was slow but steady, no LOB, but patient was very fatigued after ambulating just 6'. Treatments bed mobility and transfers, ambulation Assessment Current Status: Fair Progress Patient fatigues very quickly and needs a significant amount of time to recover from ambulation. PT Fci Goals Fci Goals PT Fci Goals Time Frame: Dec 26, 2017 Transfers (B,C,W/C) (FIM): 6 Gait (FIM): 2 Gait distance (FIM): 8=875-04 ft Distance: 125' Gait Level of Assist: 5 Gait Assistive Device: FWW PT Plan Problem List Problem List: Activity Tolerance, Functional Strength, Safety, Balance, Gait, Transfer, Bed Mobility Treatment/Plan Treatment Plan: Continue Plan of Care Treatment Plan: Education, Functional Activity Herb, Functional Strength, Gait , Safety, Therapeutic Exercise Treatment Duration: Dec 26, 2017 Frequency: 6 times per week Estimated Hrs Per Day: .5 hour per day Patient and/or Family Agrees t: Yes Safety Risks/Education Patient Education: Gait Training, Transfer Techniques, Correct Positioning, Safety Issues Teaching Recipient: Patient Teaching Methods: Demonstration, Discussion Response to Teaching: Reinforcement Needed Time/GCodes Time In: 0832 Time Out: 0850 Total Billed Treatment Time: 18 Total Billed Treatment 1 visit GT 18' ROHIT TAYLOR PT Dec 10, 2017 09:31
--- NOTE | 2017-12-10 11:03 | Occupational Ther Daily Note ---
OT Current Status-Daily Note Subjective Pt seen in room, up in recliner, agreeable to OT. No pain mentioned Mental Status/Objective Functional [place] Measure 0=Not Assessed/NA 4=Minimal Assistance 1=Total Assistance 5=Supervision or Setup 2=Maximal Assistance 6=Modified [place] 3=Moderate Assistance 7=Complete [place] ADL-Treatment Pt reported that she is going home today. She knows her home exercise program with [employer] and said that she had already done her leg exercises today. She is well versed in energy conservation techniques and applies them at home. She has no concerns about ADLs but will have a bedside commode by her bed. This is necessary because she was able to walk only about 3' with PT this morning and does not have the activity tolerance to be able to walk to her bathroom. Pt voices not other concerns and is looking forward to discharge. Pt left up in recliner, all needs met. Education OT Patient Education: Energy conservation, Modified ADL techniques, Purpose of tx/functional activities, Use of adapted equipment Teaching Recipient: Patient Teaching Methods: Discussion Response to Teaching: Verbalize Understanding OT Short Term Goals Short Term Goals 1=Demonstrate adherence to instructed precautions during ADL tasks. 2=Patient will verbalize/demonstrate understanding of assistive devices/ modifications for ADL. 3=Patient will improve strength/tolerance for activity to enable patient to perform ADL's. OT Mattress Renovator Goals Mattress Renovator Goals Time Frame: Dec 23, 2017 Eating (FIM): 6 Grooming(FIM): 6 Bathing(FIM): 6 Upper Body Dressing(FIM): 6 Lower Body Dressing(FIM): 6 Toileting(FIM): 6 Toilet/Commode Transfer(FIM): 6 Shower Transfer(FIM): 6 Additional Goals: 1-Demonstrate ADL Tasks, 2-Verbalize Understanding, 3- ImproveStrength/Herb 1=Demonstrate adherence to instructed precautions during ADL tasks. 2=Patient will verbalize/demonstrate understanding of assistive devices/ modifications for ADL. 3=Patient will improve strength/tolerance for activity to enable patient to perform ADL's. OT Education/Plan Discharge Recommendations Plan/Recommendations: Discharge/Goals Met (to patient satisfaction) Treatment Plan/Plan of Care Patient would benefit from OT for education, treatment and training to promote independence in ADL's, mobility, safety and/or upper extremity function for ADL' s. Plan of Care: ADL Retraining, Functional Mobility, UE Funct Exercise/Act, OTHER (energy conservation education) Treatment Duration: Dec 23, 2017 Frequency: 5 times per week Estimated Hrs Per Day: .5 hour per day Agreement: Yes Rehab Potential: Guarded Time/GCodes Start Time: 10:27 Stop Time: 10:35 Total Time Billed (hr/min): 8 Billed Treatment Time visit, 8 minutes ADL FER MOSS OT Dec 10, 2017 11:03
--- NOTE | 2017-12-12 07:18 | Discharge Summary ---
Diagnosis/Chief Complaint Date of Admission Dec 08, 2017 at 09:52 Date of Discharge Dec 10, 2017 at 12:00 Discharge Date: Dec 10, 2017 Discharge Diagnosis Acute respiratory failure with hypoxia. Short of breath. COPD. Interstitial lung disease. Congestive heart failure. Coronary artery disease. Chronic obstructive pulmonary disease. Hypothyroid. Recent myocardial infarction Reason Hospital Visit Patient was at home this morning and got short of breath. Patient went to the bathroom. It took 30 minutes the patient to get out of the bathroom.. brought patient out to the emergency room. Patient on 10 L of nasal oxygen. Pulse ox was 65. Patient evaluated by the emergency room physician and admitted to ICU. Patient discharged one week ago from [facility]. Patient before that was at [facility] Patient told she has an autoimmune disease and put on Imuran Discharge Summary Consultations Pulmonology Discharge Physical Examination Allergies: Coded Allergies: No Known Drug Allergies (Unverified , 08/03/17) Vitals & I&Os Vital Signs Date Time Temp Pulse Resp B/P (MAP) Pulse Ox O2 Delivery O2 Flow Rate FiO2 12/10/17 12:00 91 22 107/62 94 High Flow N/C 4.00 12/10/17 07:34 97.9 12/09/17 04:00 40 Hospital Course Patient in hospital did improve with her breathing. Patient discharged to home. Patient fragile. Labs (last 24 hrs) Laboratory Tests 12/08/17 09:20: White Blood Count 10.4, Red Blood Count 4.52, Hemoglobin 14.1, Hematocrit 41, Mean Corpuscular Volume 91, Mean Corpuscular Hemoglobin 31, Mean Corpuscular Hemoglobin Concent 34, Red Cell Distribution Width 14.3, Platelet Count 229, Mean Platelet Volume 9.8, Neutrophils (%) (Auto) 66, Lymphocytes (%) (Auto) 22, Monocytes (%) (Auto) 7, Eosinophils (%) (Auto) 4, Basophils (%) (Auto) 1, Neutrophils # (Auto) 6.8, Lymphocytes # (Auto) 2.3, Monocytes # (Auto) 0.7, Eosinophils # (Auto) 0.5H, Basophils # (Auto) 0.1, Sodium Level 133L, Potassium Level 4.4, Chloride Level 97L, Carbon Dioxide Level 27, Anion Gap 9, Blood Urea Nitrogen 18, Creatinine 0.61, Estimat Glomerular Filtration Rate > 60, BUN/ Creatinine Ratio 30, Glucose Level 146H, Calcium Level 9.5, Total Bilirubin 0.9 , Aspartate Amino Transf (AST/SGOT) 31, Alanine Aminotransferase (ALT/SGPT) 40, Alkaline Phosphatase 60, Troponin I < 0.30, B-Type Natriuretic Peptide 96.2, Total Protein 6.9, Albumin 3.6 12/08/17 10:16: Lactic Acid Level 1.34 12/08/17 10:25: Urine Color YELLOW, Urine Clarity CLEAR, Urine pH 7, Urine Specific [place] 1.005L, Urine Protein NEGATIVE, Urine Glucose (UA) NEGATIVE, Urine Ketones NEGATIVE, Urine Nitrite NEGATIVE, Urine Bilirubin NEGATIVE, Urine Urobilinogen NORMAL, Urine Leukocyte Esterase 3+H, Urine RBC (Auto) NEGATIVE, Urine RBC NONE , Urine WBC 2-5, Urine Squamous Epithelial Cells RARE, Urine Crystals NONE, Urine Bacteria NEGATIVE, Urine Casts NONE, Urine Mucus NEGATIVE, Urine Culture Indicated NO 12/08/17 11:25: Urine Legionella pneumophilia Ag Negative, Streptococcus pneumoniae Antigen Negative 12/08/17 11:51: Blood Gas Puncture Site L BRACHIAL, Blood Gas Patient Temperature 97.6, Arterial Blood pH 7.46H, Arterial Blood Partial Pressure CO2 42, Arterial Blood Partial Pressure O2 82, Arterial Blood HCO3 30H, Arterial Blood Total CO2 30.9, Arterial Blood Oxygen Saturation 98, Arterial Blood Base Excess 5.6H, Corey Test YES-POS, Blood Gas Ventilator Setting NO, Blood Gas Inspired Oxygen 50% 12/09/17 03:00: White Blood Count 7.2, Red Blood Count 4.18L, Hemoglobin 12.8, Hematocrit 37, Mean Corpuscular Volume 89, Mean Corpuscular Hemoglobin 31, Mean Corpuscular Hemoglobin Concent 35, Red Cell Distribution Width 14.3, Platelet Count 202, Mean Platelet Volume 9.8, Neutrophils (%) (Auto) 90H, Lymphocytes (%) (Auto) 7L , Monocytes (%) (Auto) 3, Eosinophils (%) (Auto) 0, Basophils (%) (Auto) 0, Neutrophils # (Auto) 6.5, Lymphocytes # (Auto) 0.5L, Monocytes # (Auto) 0.2, Eosinophils # (Auto) 0.0, Basophils # (Auto) 0.0, Sodium Level 134L, Potassium Level 4.6, Chloride Level 94L, Carbon Dioxide Level 27, Anion Gap 13, Blood Urea Nitrogen 16, Creatinine 0.55L, Estimat Glomerular Filtration Rate > 60, BUN /Creatinine Ratio 29, Glucose Level 198H, Calcium Level 9.6, Phosphorus Level 3.7, Magnesium Level 2.2 12/09/17 05:05: Blood Gas Puncture Site RIGHT RADIAL, Blood Gas Patient Temperature 97.0, Arterial Blood pH 7.51H, Arterial Blood Partial Pressure CO2 42, Arterial Blood Partial Pressure O2 58L, Arterial Blood HCO3 33H, Arterial Blood Total CO2 34.4H , Arterial Blood Oxygen Saturation 92L, Arterial Blood Base Excess 9.2H, Corey Test YES-POS, Blood Gas Ventilator Setting NO, Blood Gas Inspired Oxygen 40% 12/10/17 03:10: White Blood Count 11.0, Red Blood Count 3.73L, Hemoglobin 11.5, Hematocrit 33L, Mean Corpuscular Volume 89, Mean Corpuscular Hemoglobin 31, Mean Corpuscular Hemoglobin Concent 35, Red Cell Distribution Width 14.1, Platelet Count 206, Mean Platelet Volume 10.0, Neutrophils (%) (Auto) 87H, Lymphocytes (%) (Auto) 7L , Monocytes (%) (Auto) 6, Eosinophils (%) (Auto) 0, Basophils (%) (Auto) 0, Neutrophils # (Auto) 9.6H, Lymphocytes # (Auto) 0.8L, Monocytes # (Auto) 0.7, Eosinophils # (Auto) 0.0, Basophils # (Auto) 0.0, Sodium Level 131L, Potassium Level 4.4, Chloride Level 93L, Carbon Dioxide Level 32, Anion Gap 6, Blood Urea Nitrogen 19H, Creatinine 0.51L, Estimat Glomerular Filtration Rate > 60, BUN/ Creatinine Ratio 37, Glucose Level 139H, Calcium Level 9.6, Phosphorus Level 2.4 , Magnesium Level 1.9 Microbiology 12/08/17 Blood Culture - Preliminary, Resulted No growth Laboratory Tests 12/08/17 09:20 12/09/17 03:00 12/10/17 03:10 Pending Labs Microbiology Date/Time Source Procedure Growth Status 12/08/17 10:16 Peripheral Iv/Heplock Blood Culture - Preliminary No growth Resulted 12/08/17 10:00 Peripheral Lt Ac Blood Culture - Preliminary No growth Resulted Laboratory Tests 12/08/17 09:20: White Blood Count 10.4, Red Blood Count 4.52, Hemoglobin 14.1, Hematocrit 41, Mean Corpuscular Volume 91, Mean Corpuscular Hemoglobin 31, Mean Corpuscular Hemoglobin Concent 34, Red Cell Distribution Width 14.3, Platelet Count 229, Mean Platelet Volume 9.8, Neutrophils (%) (Auto) 66, Lymphocytes (%) (Auto) 22, Monocytes (%) (Auto) 7, Eosinophils (%) (Auto) 4, Basophils (%) (Auto) 1, Neutrophils # (Auto) 6.8, Lymphocytes # (Auto) 2.3, Monocytes # (Auto) 0.7, Eosinophils # (Auto) 0.5, Basophils # (Auto) 0.1, Sodium Level 133, Potassium Level 4.4, Chloride Level 97, Carbon Dioxide Level 27, Anion Gap 9, Blood Urea Nitrogen 18, Creatinine 0.61, Estimat Glomerular Filtration Rate > 60, BUN/ Creatinine Ratio 30, Glucose Level 146, Calcium Level 9.5, Total Bilirubin 0.9, Aspartate Amino Transf (AST/SGOT) 31, Alanine Aminotransferase (ALT/SGPT) 40, Alkaline Phosphatase 60, Troponin I < 0.30, B-Type Natriuretic Peptide 96.2, Total Protein 6.9, Albumin 3.6 12/08/17 10:16: Lactic Acid Level 1.34 12/08/17 10:25: Urine Color YELLOW, Urine Clarity CLEAR, Urine pH 7, Urine Specific [place] 1.005, Urine Protein NEGATIVE, Urine Glucose (UA) NEGATIVE, Urine Ketones NEGATIVE, Urine Nitrite NEGATIVE, Urine Bilirubin NEGATIVE, Urine Urobilinogen NORMAL, Urine Leukocyte Esterase 3+, Urine RBC (Auto) NEGATIVE, Urine RBC NONE, Urine WBC 2-5, Urine Squamous Epithelial Cells RARE, Urine Crystals NONE, Urine Bacteria NEGATIVE, Urine Casts NONE, Urine Mucus NEGATIVE, Urine Culture Indicated NO 12/08/17 11:25: Urine Legionella pneumophilia Ag Negative, Streptococcus pneumoniae Antigen Negative 12/08/17 11:51: Blood Gas Puncture Site L BRACHIAL, Blood Gas Patient Temperature 97.6, Arterial Blood pH 7.46, Arterial Blood Partial Pressure CO2 42, Arterial Blood Partial Pressure O2 82, Arterial Blood HCO3 30, Arterial Blood Total CO2 30.9, Arterial Blood Oxygen Saturation 98, Arterial Blood Base Excess 5.6, Corey Test YES-POS, Blood Gas Ventilator Setting NO, Blood Gas Inspired Oxygen 50% 12/09/17 03:00: White Blood Count 7.2, Red Blood Count 4.18, Hemoglobin 12.8, Hematocrit 37, Mean Corpuscular Volume 89, Mean Corpuscular Hemoglobin 31, Mean Corpuscular Hemoglobin Concent 35, Red Cell Distribution Width 14.3, Platelet Count 202, Mean Platelet Volume 9.8, Neutrophils (%) (Auto) 90, Lymphocytes (%) (Auto) 7, Monocytes (%) (Auto) 3, Eosinophils (%) (Auto) 0, Basophils (%) (Auto) 0, Neutrophils # (Auto) 6.5, Lymphocytes # (Auto) 0.5, Monocytes # (Auto) 0.2, Eosinophils # (Auto) 0.0, Basophils # (Auto) 0.0, Sodium Level 134, Potassium Level 4.6, Chloride Level 94, Carbon Dioxide Level 27, Anion Gap 13, Blood Urea Nitrogen 16, Creatinine 0.55, Estimat Glomerular Filtration Rate > 60, BUN/ Creatinine Ratio 29, Glucose Level 198, Calcium Level 9.6, Phosphorus Level 3.7 , Magnesium Level 2.2 12/09/17 05:05: Blood Gas Puncture Site RIGHT RADIAL, Blood Gas Patient Temperature 97.0, Arterial Blood pH 7.51, Arterial Blood Partial Pressure CO2 42, Arterial Blood Partial Pressure O2 58, Arterial Blood HCO3 33, Arterial Blood Total CO2 34.4, Arterial Blood Oxygen Saturation 92, Arterial Blood Base Excess 9.2, Corey Test YES-POS, Blood Gas Ventilator Setting NO, Blood Gas Inspired Oxygen 40% 12/10/17 03:10: White Blood Count 11.0, Red Blood Count 3.73, Hemoglobin 11.5, Hematocrit 33, Mean Corpuscular Volume 89, Mean Corpuscular Hemoglobin 31, Mean Corpuscular Hemoglobin Concent 35, Red Cell Distribution Width 14.1, Platelet Count 206, Mean Platelet Volume 10.0, Neutrophils (%) (Auto) 87, Lymphocytes (%) (Auto) 7, Monocytes (%) (Auto) 6, Eosinophils (%) (Auto) 0, Basophils (%) (Auto) 0, Neutrophils # (Auto) 9.6, Lymphocytes # (Auto) 0.8, Monocytes # (Auto) 0.7, Eosinophils # (Auto) 0.0, Basophils # (Auto) 0.0, Sodium Level 131, Potassium Level 4.4, Chloride Level 93, Carbon Dioxide Level 32, Anion Gap 6, Blood Urea Nitrogen 19, Creatinine 0.51, Estimat Glomerular Filtration Rate > 60, BUN/ Creatinine Ratio 37, Glucose Level 139, Calcium Level 9.6, Phosphorus Level 2.4 , Magnesium Level 1.9 Radiology Reviewed 12/08/17 chest x-ray stable bilateral pulmonary infiltrates. 12/10/17 chest x-ray diffuse interstitial and alveolar infiltrates with poor lung volume Discharge Home Medications: Active Scripts Active Effexor Xr (Venlafaxine HCl) 75 Mg Cap.er.24h 75 Mg PO DAILY 30 Days Reported Senna-S Tablet (Sennosides/Docusate Sodium) 1 Each Tablet 1 Tab PO BID Sulfamethoxazole-Tmp Ds Tablet (Sulfamethoxazole/Trimethoprim) 1 Each Tablet 1 Tab PO MOWEFR 60 Days FILLED 12-01-17 Prednisone 20 Mg Tab PO UD TAKE 60MG DAILY X 13 DAYS (UNTIL 12-15-17) THEN TAKE 40MG DAILY UNTIL FOLLOW UP WITH PULMONOLOGY Klor-Con 10 (Potassium Chloride) 10 Meq Tablet.er 10 Meq PO Q48H Metoprolol Succinate 25 Mg Tab.er.24h 25 Mg PO DAILY Metformin HCl 500 Mg Tablet 500 Mg PO BID WITH MEALS Losartan Potassium 25 Mg Tablet 12.5 Mg PO DAILY TAKES 1/2 (25MG) TABLET Furosemide 40 Mg Tablet 20 Mg PO Q48H Azathioprine 50 Mg Tablet 50 Mg PO DAILY Ventolin Hfa (Albuterol Sulfate) 18 Gm Hfa.aer.ad 2 Puff INH Q4H PRN Os-Daron 500+D3 Caplet (Calcium Carbonate/Vitamin D3) 1 Each Tablet 1 Tab PO BID Levothyroxine Sodium 75 Mcg Tablet 75 Mcg PO DAILY Aspirin 81 Mg Tab.chew 81 Mg PO HS Lipitor (Atorvastatin Calcium) 80 Mg Tablet 80 Mg PO HS Plavix (Clopidogrel Bisulfate) 75 Mg Tablet 75 Mg PO DAILY Advair Hfa 115-21 Mcg Inhaler (Fluticasone/Salmeterol) 12 Gm Hfa.aer.ad 2 Puff IH BID [Allbee W/ C] 1 Tab PO 1800 Instructions to patient/family Please see electronic discharge instructions given to patient. Clinical Quality Measures DVT/VTE Risk/Contraindication: Risk Factor Score Per Nursin RFS Level Per Nursing on Admit: 4+=Very High ABRAM BRITT DO Dec 12, 2017 07:18
== END 2017-12-10 12:00 | disposition home health service (06) | DRG 189 ==
LOC: EDUNIT# 09:06 → ER 09:08 → ICU 09:52
PROVIDERS: ADMIT Family Medicine; ATTEND Family Medicine
DX: J96.21 Acute and chronic respiratory failure with hypoxia (principal); J84.9 Interstitial pulmonary disease, unspecified; I11.0 Hypertensive heart disease with heart failure; I50.31 Acute diastolic (congestive) heart failure; J44.9 Chronic obstructive pulmonary disease, unspecified; M35.9 Systemic involvement of connective tissue, unspecified; I48.91 Unspecified atrial fibrillation; I25.10 Atherosclerotic heart disease of native coronary artery without angina pectoris; E78.5 Hyperlipidemia, unspecified; E03.9 Hypothyroidism, unspecified; R53.81 Other malaise; F32.9 Major depressive disorder, single episode, unspecified; I25.2 Old myocardial infarction; Z79.82 Long term (current) use of aspirin; Z95.5 Presence of coronary angioplasty implant and graft; Z77.120 Contact with and (suspected) exposure to mold (toxic)
CPT/HCPCS: 36415; 36600; 71045; 80048; 80053; 81000; 82805; 83605; 83735; 83880; 84100; 84484; 85025; 87040; 87449; 87899; 93005; 94640; 94660; 94760; 96374; 96375

== ENCOUNTER → 2017-12-08 | Outpatient (CLI) | payer MEDICARE, OTHER ==
[~2017-12-08] MED LIST changes: +ALBU18HF2 INH; +ATOR80TA64 PO; +AZAT50TA PO; +CALC1TAB29 PO; +CLOP75TA69 PO; +LEVO75TA6 PO; +LOSA25TA21 PO; +METF500T5 PO; +PRD20T PO; +PRED10TA22 PO; +SENN-109 PO; +SULF-222 PO; +VENL75CA PO
== END ==
LOC: HH 08:00
PROVIDERS: ATTEND Internal Medicine Cardiovascular Disease
DX: I25.10 Atherosclerotic heart disease of native coronary artery without angina pectoris (principal); I10 Essential (primary) hypertension; J82 Pulmonary eosinophilia, not elsewhere classified; J96.90 Respiratory failure, unspecified, unspecified whether with hypoxia or hypercapnia

== ENCOUNTER → 2017-12-17 | Outpatient (CLI) | payer MEDICARE, OTHER ==
[~2017-12-17] MED LIST changes: +ALBU18HF2 INH; +AZAT50TA PO; +CALC1TAB29 PO; +LEVO75TA6 PO; +LOSA25TA21 PO; +METF500T5 PO; +PRD20T PO; +SENN-109 PO; +SULF-222 PO; +VENL75CA PO
[2017-12-17 16:03] LABS: BASOPHILS % (AUTO) 0 % (0-10); EOSINOPHILS # (AUTO) 0.1 10^3/uL (0.0-0.3); EOSINOPHILS % (AUTO) 1 % (0-10); HEMATOCRIT 38 % (35-52); HEMOGLOBIN 12.9 G/DL (11.5-16.0); LYMPHOCYTES # (AUTO) 0.3 X 10^3 (1.0-4.0); LYMPHOCYTES % (AUTO) 4 % (12-44); MEAN CORPUSCULAR HEMOGLOBIN 31 PG (25-34); MEAN CORPUSCULAR HGB CONC 34 G/DL (32-36); MEAN CORPUSCULAR VOLUME 91 FL (80-99); MEAN PLATELET VOLUME 9.7 FL (7.4-10.4); MONOCYTES # (AUTO) 0.2 X 10^3 (0.0-1.0); MONOCYTES % (AUTO) 4 % (0-12); NEUTROPHILS # (AUTO) 6.4 X 10^3 (1.8-7.8); NEUTROPHILS % (AUTO) 92 % (42-75); PLATELET COUNT 199 10^3/uL (130-400); RED BLOOD COUNT 4.22 10^6/uL (4.35-5.85); RED CELL DISTRIBUTION WIDTH 14.8 % (10.0-14.5); WHITE BLOOD COUNT 6.9 10^3/uL (4.3-11.0)
[2017-12-17 16:16] LABS: BAND NEUTROPHILS 2 %; BASOPHILS % (MANUAL) 0 %; EOSINOPHILS % (MANUAL) 2 %; LYMPHOCYTES % (MANUAL) 4 %; MONOCYTES % (MANUAL) 4 %; NEUTROPHILS % (MANUAL) 88 %; PLATELET CLUMPS OCCASIONAL
[2017-12-17 16:17] LABS: RBC MORPH NORMAL
[2017-12-17 16:21] LABS: ALANINE AMINOTRANSFERASE 67 U/L (0-55); ALBUMIN 3.6 GM/DL (3.2-4.5); ALKALINE PHOSPHATASE 52 U/L (40-136); BILIRUBIN,TOTAL 0.7 MG/DL (0.1-1.0); BUN/CREATININE RATIO 34; CALCIUM 8.8 MG/DL (8.5-10.1); CARBON DIOXIDE 30 MMOL/L (21-32); CHLORIDE 93 MMOL/L (98-107); CREATININE SERUM 0.56 MG/DL (0.60-1.30); GFR ESTIMATED > 60; GLUCOSE 206 MG/DL (70-105); POTASSIUM 3.7 MMOL/L (3.6-5.0); SODIUM 132 MMOL/L (135-145); TOTAL PROTEIN 6.3 GM/DL (6.4-8.2)
== END ==
LOC: HH 08:00
PROVIDERS: ATTEND Family Medicine
DX: I50.9 Heart failure, unspecified (principal); J44.9 Chronic obstructive pulmonary disease, unspecified
CPT/HCPCS: 80053; 83880; 85007; 85027

== ENCOUNTER → 2017-12-19 | Outpatient (CLI) | payer MEDICARE, OTHER | LOC: LAB 09:28 | PROVIDERS: ATTEND Family Medicine | DX: E11.9 Type 2 diabetes mellitus without complications (principal) | CPT/HCPCS: 83036 ==

== ENCOUNTER → 2017-12-25 | Outpatient (CLI) | payer MEDICARE, OTHER ==
[2017-12-25 13:03] LABS: BASOPHILS % (AUTO) 0 % (0-10); EOSINOPHILS # (AUTO) 0.2 10^3/uL (0.0-0.3); EOSINOPHILS % (AUTO) 3 % (0-10); HEMATOCRIT 36 % (35-52); LYMPHOCYTES # (AUTO) 0.8 X 10^3 (1.0-4.0); LYMPHOCYTES % (AUTO) 13 % (12-44); MEAN CORPUSCULAR HEMOGLOBIN 31 PG (25-34); MEAN CORPUSCULAR HGB CONC 33 G/DL (32-36); MEAN CORPUSCULAR VOLUME 93 FL (80-99); MEAN PLATELET VOLUME 10.1 FL (7.4-10.4); MONOCYTES # (AUTO) 0.5 X 10^3 (0.0-1.0); MONOCYTES % (AUTO) 9 % (0-12); NEUTROPHILS # (AUTO) 4.5 X 10^3 (1.8-7.8); NEUTROPHILS % (AUTO) 76 % (42-75); PLATELET COUNT 231 10^3/uL (130-400); RED CELL DISTRIBUTION WIDTH 15.6 % (10.0-14.5)
[2017-12-25 13:13] LABS: ALANINE AMINOTRANSFERASE 75 U/L (0-55); ALBUMIN 3.5 GM/DL (3.2-4.5); ALKALINE PHOSPHATASE 56 U/L (40-136); BILIRUBIN,TOTAL 0.7 MG/DL (0.1-1.0); BUN/CREATININE RATIO 53; CALCIUM 9.9 MG/DL (8.5-10.1); CARBON DIOXIDE 30 MMOL/L (21-32); CHLORIDE 99 MMOL/L (98-107); CREATININE SERUM 0.57 MG/DL (0.60-1.30); GFR ESTIMATED > 60; GLUCOSE 79 MG/DL (70-105); SODIUM 138 MMOL/L (135-145); TOTAL PROTEIN 6.2 GM/DL (6.4-8.2)
== END ==
LOC: HH 08:00
PROVIDERS: ATTEND Family Medicine
DX: I50.9 Heart failure, unspecified (principal)
CPT/HCPCS: 80053; 83880; 85025

== ENCOUNTER → 2017-12-30 | Outpatient (CLI) | payer MEDICARE, OTHER ==
[2017-12-30 11:20] LABS: ALBUMIN 3.6 GM/DL (3.2-4.5); BILIRUBIN,DIRECT 0.5 MG/DL (0.0-0.3); BILIRUBIN,INDIRECT 0.3 MG/DL; BILIRUBIN,TOTAL 0.8 MG/DL (0.1-1.0); TOTAL PROTEIN 6.6 GM/DL (6.4-8.2)
== END ==
LOC: HH 08:00
PROVIDERS: ATTEND Family Medicine
DX: R74.8 Abnormal levels of other serum enzymes (principal)
CPT/HCPCS: 80076

== ENCOUNTER → 2018-01-05 | Outpatient (CLI) | payer MEDICARE, OTHER ==
[2018-01-05 12:46] LABS: CLARITY,URINE CLEAR; COLOR,URINE AMBER; GLUCOSE, URINE (UA) NEGATIVE (NEGATIVE); KETONES,URINE NEGATIVE (NEGATIVE); LEUKOCYTE ESTERASE ,URINE 3+ (NEGATIVE); NITRITE,URINE NEGATIVE (NEGATIVE); PH,URINE 7 (5-9); PROTEIN,URINE 2+ (NEGATIVE); UROBILINOGEN,URINE 1 MG/DL (NORMAL)
[2018-01-05 13:12] LABS: BILIRUBIN,URINE 1+ (NEGATIVE)
[2018-01-05 13:13] LABS: BACTERIA,URINE NEGATIVE /HPF; CALCIUM OXALATE CRYSTALS,UR MODERATE /LPF; SQUAMOUS EPITHELIAL CELL,UR RARE /HPF
--- NOTE | 2018-01-07 14:45 | Physician Query-Final Dx ---
YOON FERNANDEZ 01/07/18 1445: Clinic Account Progress/Dx Physician Query: Please give diagnosis We can't code rule out conditions on OP visits. Please provide sign/symptom warranting the test. Date of Service Jan 05, 2018 at 08:00 Progress Note: Yoon [phone] ABRAM BRITT DO 01/08/18 0658: Clinic Account Progress/Dx DIAGNOSIS: Diagnosis Short of breath. Congestive heart failure. Pneumonia YOON FERNANDEZ Jan 07, 2018 14:45 ABRMA BRITT DO Jan 08, 2018 06:58
== END ==
LOC: HH 08:00
PROVIDERS: ATTEND Family Medicine
DX: R82.99 Other abnormal findings in urine (principal)
CPT/HCPCS: 81000; 87077; 87088; 87186

== ENCOUNTER 2018-01-21 17:46 | Inpatient (IN) | payer MEDICARE, OTHER ==
[2018-01-21] VITALS (9 sets, daily range): BP systolic 88–106; BP diastolic 59–99
[~2018-01-21] VITALS: Ht 167.6 cm; Wt 53.1 kg
[~2018-01-21 17:46] MED LIST changes: -LOSA25TA21 PO; +LOSA25TA6 PO; -LOSA50TA36 PO; +LOSA50TA7 PO; +METF-397 PO; -METF500T5 PO
[2018-01-21] MEDS ORDERED: methylPREDNISolone 125 MG (Solu-MEDROL) VIAL IV STA (17:48)
[2018-01-21] MEDS ORDERED: RT-ALBUTEROL/IPRATROPIUM 3 ML (DUONEB) VIAL ONE ×2 (17:53→21:12)
[2018-01-21] MEDS ORDERED: methylPREDNISolone 125 MG (Solu-MEDROL) VIAL ONE (17:56)
[2018-01-21] MEDS ORDERED: RT-ALBUTEROL/IPRATROPIUM 3 ML (DUONEB) VIAL INH ONE (18:00)
--- NOTE | 2018-01-21 18:17 | ED Respiratory ---
General Chief Complaint: Respiratory Problems Stated Complaint: TROUBLE BREATHING Source: patient, spouse ( TALKS AT LENGTH AND TRIES TO DO ALL TALKING FOR PT) Exam Limitations: other (BOTH PT AND LIMITED HISTORIANS ABOUT PMH AND MEDICATIONS. ) History of Present Illness Date Seen by Provider: Jan 21, 2018 Time Seen by Provider: 17:45 Initial Comments PT ARRIVES VIA POV, BUT REQUIRED WHEELCHAIR AND ASSISTANCE TO GET OUT OF VEHICLE C/O SHORTNESS OF BREATH STATES IT BEGAN DURING THE MIDDLE OF THE NIGHT WHEN SHE GOT UP TO GO TO THE BATHROOM--WAS NOT SHORT OF BREATH WHEN SHE WENT TO BED EARLIER LAST EVENING SHORTNESS OF BREATH HAS CONTINUED ALL DAY, BUT DID NOT ATTEMPT TO CONTACT ANYONE UNTIL TONIGHT, WHEN CALLED DR. WILLS'S OFFICE, AND WAS ADVISED TO COME HERE PT IS ON O2 AT 4L/NC CONTINUOUSLY, BUT HAS INCREASED IT TO 15 LITERS TODAY WITHOUT IMPROVEMENT. PT IS SUPPOSED TO BE ON ALBUTEROL INHALER TWICE A DAY, AND NOTHING ELSE FOR RESPIRATORY SYMPTOMS. NO CHEST PAIN NO SWELLING IN LEGS/ FEET OR PAIN IN CALVES HAS MILD CHRONIC, NON-PRODUCTIVE COUGH AND THIS IS NO DIFFERENT THAN NORMAL NO FEVER NO RECENT URI SYMPTOMS PT STATES SHE DID NOT HAVE ANY OF THESE PROBLEMS UNTIL SHE HAD SD IN JULY PT'S FIRST VISIT HERE WAS IN JULY OF THIS YEAR WHEN SHE HAD SD PT HAS HAD MULTIP[facility]. [facility] SINCE THEN ( ADMITTED EVERY TIME SHE COMES HERE ) FOR RESPIRATORY COMPLAINTS--HAS HAD STENTS X 3, HAS BEEN DX WITH CHF, INTERMITTENT ATRIAL FIBRILLATION, PLEURAL EFFUSIONS, RESPIRATORY FAILURE, INTERSTITIAL LUNG DISEASE WELL. LAST ADMIT WAS 12/08-12/10/17 FOR RESPIRATORY FAILURE WAS ADMITTED HERE IN MID OCTOBER AND THEN TRANSFERRED TO THE END OF OCTOBER AND [facility] PT HAS NEVER SMOKED. PT HAS BEEN ON UNKNOWN ANTIBIOTIC FOR UTI--APPARENTLY HAD COMPLETED TREATMENT AND THEN WAS STARTED ON ANOTHER ROUND OF UNKNOWN ANTIBIOTICS TODAY PT DENIES URINARY SYMPTOMS PT AND DO NOT KNOW WHAT ANY OF HER MEDICATIONS ARE OR WHAT SHE TAKES ANY OF HER MEDICATIONS FOR, AND IS ON IMURAN FOR UNKNOWN REASON PT HAS BEEN ON PREDNISONE CONTINUOUSLY SINCE JULY--WAS ON 40 MG DAILY, AND HAS BEEN TAPERED DOWN TO 30 MG DAILY AND RECENTLY DOSE WAS DECREASED TO 20 MG DAILY. PCP: DR. BRITT CARDIOLOGY: DR. PINON PULMONOLOGY: DR. WILLS HAS ALSO BEEN SEEN AT , BUT IS UNCLEAR WHAT SHE WAS BEING SEEN FOR THERE Allergies and Home Medications Allergies Coded Allergies: No Known Drug Allergies (Unverified , 08/03/17) Home Medications Albuterol Sulfate 18 Gm Hfa.aer.ad, 2 PUFF INH Q4H PRN for SHORTNESS OF BREATH, (Reported) Aspirin 81 Mg Tab.chew, 81 MG PO HS, (Reported) Atorvastatin Calcium 80 Mg Tablet, 80 MG PO HS, (Reported) Azathioprine 50 Mg Tablet, 50 MG PO DAILY, (Reported) Calcium Carbonate/Vitamin D3 1 Each Tablet, 1 TAB PO BID, (Reported) Clopidogrel Bisulfate 75 Mg Tablet, 75 MG PO DAILY, (Reported) Fluticasone/Salmeterol 12 Gm Hfa.aer.ad, 2 PUFF IH BID, (Reported) Furosemide 40 Mg Tablet, 20 MG PO Q48H, (Reported) Levothyroxine Sodium 75 Mcg Tablet, 75 MCG PO DAILY, (Reported) Losartan Potassium 25 Mg Tablet, 12.5 MG PO DAILY, (Reported) TAKES 1/2 (25MG) TABLET Metformin HCl 500 Mg Tablet, 500 MG PO BID WITH MEALS, (Reported) Metoprolol Succinate 25 Mg Tab.er.24h, 25 MG PO DAILY, (Reported) Potassium Chloride 10 Meq Tablet.er, 10 MEQ PO Q48H, (Reported) Prednisone 20 Mg Tab, PO UD, (Reported) TAKE 60MG DAILY X 13 DAYS (UNTIL 12-15-17) THEN TAKE 40MG DAILY UNTIL FOLLOW UP WITH PULMONOLOGY Sennosides/Docusate Sodium 1 Each Tablet, 1 TAB PO BID, (Reported) Sulfamethoxazole/Trimethoprim 1 Each Tablet, 1 TAB PO MoWeFr, (Reported) FILLED 12-01-17 Venlafaxine HCl 75 Mg Cap.er.24h, 75 MG PO DAILY Prescribed by: ABRAM BRITT on 12/10/17 0742 [[place] W/ C] , 1 TAB PO 1800, (Reported) Patient Home Medication List Home Medication List Reviewed: Yes Review of Systems Review of Systems Constitutional: no symptoms reported; No chills, No diaphoresis, No dizziness, No fever EENTM: no symptoms reported Respiratory: see HPI, cough, dyspnea on exertion, orthopnea; No phlegm; short of breath Cardiovascular: No chest pain, No edema, No palpitations, No syncope Gastrointestinal: no symptoms reported; No abdominal pain, No nausea, No vomiting Genitourinary: see HPI; No dysuria Musculoskeletal: no symptoms reported; No back pain Skin: no symptoms reported Psychiatric/Neurological: No Symptoms Reported Hematologic/Lymphatic: No Symptoms Reported (ON PLAVIX) Immunological/Allergic: no symptoms reported Past Rlqrlfe-Vcidaf-Muzrne Hx Patient Social History Alcohol Use: Denies Use Recreational Drug Use: No Smoking Status: Never a Smoker 2nd Hand Smoke Exposure: No Recent Hopitalizations: No Immunizations Up To Date Date of Pneumonia Vaccine: Apr 06, 2016 Date of Influenza Vaccine: Apr 06, 2017 Seasonal Allergies Seasonal Allergies: No Past Medical History Surgeries: Yes (CARDIAC CATH WITH STENTS X 3 08/12/17; LEFT KNEE MENISCUS/ LIGAMENT REPAIR;LEFT ROTATOR CUFF REPAIR; X 3 ) Cardiac, Section, Coronary Stent, Orthopedic Respiratory: Yes (RESPIRATORY FAILURE POST-SD AND ON HOME O2 AT 4L/NC SINCE 2017; MULTIPLE ADMITS FOR RESPIRATORY FAILURE; INTERSTITIAL LUNG DISEASE) Pneumonia Currently Using CPAP: No Currently Using BIPAP: No Cardiac: Yes (STEMI 07/2017--S/P STENTS X 3; CHF; PLEURAL EFFUSIONS; RESPIRATORY FAILURE POST SD--NOW ON O2 AT 4L/NC CONTINUOUSLY; INTERMITTENT ATRIAL FIB-FLUTTER POST-SD) Atrial Fibrillation, Coronary Artery Disease, Heart Attack, High Cholesterol, Hypertension Neurological: No Female Reproductive Disorders: Denies 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 ) Hypothyroidsim, Diabetes, Non-Insulin dep HEENT: No Loss of Vision: Denies Hearing Impairment: Denies Cancer: No Psychosocial: No Integumentary: No Blood Disorders: Yes (ANEMIA) Adverse Reaction/Blood Tranf: No Family Medical History No Pertinent Family Hx Physical Exam Vital Signs - First Documented 01/21/18 17:48 Temp 96.7 Pulse 104 Resp 43 B/P (MAP) 134/84 (101) Pulse Ox 95 O2 Delivery Nasal Cannula O2 Flow Rate 10.00 Capillary Refill : Height: 5'0.00" Weight: 120lbs. 6.0oz. 54.242860pi; 22.2 BMI Method:Stated General Appearance: mild distress (MILDLY LABORED BREATHING, BUT ABLE TO TALK IN FULL SENTENCES), thin HEENT: PERRL/EOMI, normal ENT inspection Neck: normal inspection Respiratory: respiratory distress (MILD), accessory muscle use (MILD), rales ( DIFFUSELY THROUGHOUT LEFT LUNG, FAINT RALES AND DIMINISHED LUNG SOUNDS RIGHT LUNG BASE); No wheezing Cardiovascular: no edema, no gallop, no JVD, no murmur, tachycardia (MILD--105) Gastrointestinal: normal bowel sounds, non tender, soft, no organomegaly Extremities: normal range of motion, non-tender, normal inspection, no pedal edema, no calf tenderness, normal capillary refill Neurologic/Psychiatric: product marketing consultant II-XII nml as tested, no motor/sensory deficits, alert, normal mood/affect, oriented x 3 Skin: normal color, warm/dry; No rash Focused Exam Lactate Level 01/21/18 18:05: Lactic Acid Level 2.21*H Lactic Acid Level Laboratory Tests Test 01/21/18 18:05 Lactic Acid Level 2.21 MMOL/L (0.50-2.00) *H Procedures/Interventions Date of ETT Placement: Nov 19, 2017 Time of ETT Placement: 1356 Progress/Results/Core Measures Suspected Sepsis SIRS Temperature: Pulse: Respiratory Rate: Laboratory Tests 01/21/18 18:00: White Blood Count 6.7 Blood Pressure / Mean: 01/21/18 18:05: Lactic Acid Level 2.21*H Laboratory Tests 01/21/18 18:00: Creatinine 0.57L, INR Comment 1.1, Platelet Count 279, Total Bilirubin 0.7 Results/Orders Lab Results Laboratory Tests Test 01/21/18 18:00 01/21/18 18:05 01/21/18 18:30 01/21/18 18:45 Range/Units White Blood Count 6.7 4.3-11.0 10^3/uL Red Blood Count 4.07 L 4.35-5.85 10^6/uL Hemoglobin 13.0 11.5-16.0 G/DL Hematocrit 38 35-52 % Mean Corpuscular Volume 93 80-99 FL Mean Corpuscular Hemoglobin 32 25-34 PG Mean Corpuscular Hemoglobin Concent 34 32-36 G/DL Red Cell Distribution Width 17.6 H 10.0-14.5 % Platelet Count 279 130-400 10^3/uL Mean Platelet Volume 9.9 7.4-10.4 FL Neutrophils (%) (Auto) 89 H 42-75 % Lymphocytes (%) (Auto) 8 L 12-44 % Monocytes (%) (Auto) 4 0-12 % Eosinophils (%) (Auto) 0 0-10 % Basophils (%) (Auto) 0 0-10 % Neutrophils # (Auto) 5.9 1.8-7.8 X 10^3 Lymphocytes # (Auto) 0.5 L 1.0-4.0 X 10^3 Monocytes # (Auto) 0.3 0.0-1.0 X 10^3 Eosinophils # (Auto) 0.0 0.0-0.3 10^3/uL Basophils # (Auto) 0.0 0.0-0.1 10^3/uL Neutrophils % (Manual) 75 % Lymphocytes % (Manual) 9 % Monocytes % (Manual) 3 % Eosinophils % (Manual) 0 % Basophils % (Manual) 0 % Band Neutrophils 13 % Blood Morphology Comment NORMAL Prothrombin Time 13.8 12.2-14.7 SEC INR Comment 1.1 0.8-1.4 Activated Partial Thromboplast Time 22 L 24-35 SEC Sodium Level 131 L 135-145 MMOL/L Potassium Level 4.6 3.6-5.0 MMOL/L Chloride Level 93 L 98-107 MMOL/L Carbon Dioxide Level 30 21-32 MMOL/L Anion Gap 8 5-14 MMOL/L Blood Urea Nitrogen 14 7-18 MG/DL Creatinine 0.57 L 0.60-1.30 MG/DL Estimat Glomerular Filtration Rate > 60 BUN/Creatinine Ratio 25 Glucose Level 212 H 70-105 MG/DL Calcium Level 9.3 8.5-10.1 MG/DL Corrected Calcium 9.6 8.5-10.1 MG/DL Magnesium Level 2.1 1.8-2.4 MG/DL Total Bilirubin 0.7 0.1-1.0 MG/DL Aspartate Amino Transf (AST/SGOT) 58 H 5-34 U/L Alanine Aminotransferase (ALT/SGPT) 103 H 0-55 U/L Alkaline Phosphatase 51 40-136 U/L Total Creatine Kinase 146 29-168 U/L Creatine Kinase MB 4.3 <6.6 NG/ML Troponin I < 0.30 <0.30 NG/ML B-Type Natriuretic Peptide 196.7 H <100.0 PG/ML Total Protein 6.3 L 6.4-8.2 GM/DL Albumin 3.6 3.2-4.5 GM/DL Lactic Acid Level 2.21 *H 0.50-2.00 MMOL/L Blood Gas Puncture Site LEFT RADIAL Blood Gas Patient Temperature 97.7 Arterial Blood pH 7.45 H 7.37-7.43 Arterial Blood Partial Pressure CO2 45 35-45 MMHG Arterial Blood Partial Pressure O2 91 79-93 MMHG Arterial Blood HCO3 31 H 23-27 MMOL/L Arterial Blood Total CO2 32.4 H 21.0-31.0 MMOL/L Arterial Blood Oxygen Saturation 99 94-100 % Arterial Blood Base Excess 6.8 H -2.5-2.5 MMOL/L Corey Test POSITIVE Blood Gas Ventilator Setting NO Blood Gas Inspired Oxygen 45% Urine Color YELLOW Urine Clarity VERY CLOUDY H Urine pH 8 5-9 Urine Specific [place] 1.015 L 1.016-1.022 Urine Protein 1+ H NEGATIVE Urine Glucose (UA) NEGATIVE NEGATIVE Urine Ketones NEGATIVE NEGATIVE Urine Nitrite NEGATIVE NEGATIVE Urine Bilirubin NEGATIVE NEGATIVE Urine Urobilinogen NORMAL NORMAL MG/DL Urine Leukocyte Esterase 3+ H NEGATIVE Urine RBC (Auto) 3+ H NEGATIVE Urine RBC 5-10 H /HPF Urine WBC 50-100 H /HPF Urine Squamous Epithelial Cells RARE /HPF Urine Renal Epithelial Cells 0-2 /HPF Urine Crystals PRESENT H /LPF Urine Amorphous Sediment FEW NISSA PHOSPHATE H /LPF Urine Bacteria FEW H /HPF Urine Casts NONE /LPF Urine Mucus NEGATIVE /LPF Urine Culture Indicated YES My Orders Orders - DEUCESHAMIR K DO Saline Lock/Iv-Start (01/21/18 17:48) O2 (01/21/18 17:48) Monitor-Rhythm Ecg Trace Only (01/21/18 17:48) Arterial Blood Gas (01/21/18 18:30) BNP (01/21/18 17:48) Cbc With Automated Diff (01/21/18 17:48) Creatine Kinase (01/21/18 17:48) Creatine Kinase Mb (01/21/18 17:48) Lactic Acid Analyzer (01/21/18 17:48) Magnesium (01/21/18 17:48) Protime With Inr (01/21/18 17:48) Partial Thromboplastin Time (01/21/18 17:48) Blood Culture (01/21/18 17:48) Albuterol/Ipra Inhalation Soln (Duoneb I (01/21/18 18:00) Rt Request For Service (01/21/18 17:48) Methylprednisolone Sod Succ (Solu-Medrol (01/21/18 17:48) Svn Small Volume Nebulizer (01/21/18 17:48) Methylprednisolone Sod Succ (Solu-Medrol (01/21/18 17:56) Manual Differential (01/21/18 18:00) Furosemide Injection (Lasix Injection) (01/21/18 18:26) Catheter(Urinary) Insert & Ass 03,15 (01/21/18 18:26) Ua Culture If Indicated (01/21/18 18:56) Ceftriaxone For Iv Use (Rocephin For I (01/21/18 19:00) Medications Given in ED Vital Signs/I&O 01/21/18 01/21/18 01/21/18 17:48 17:52 18:00 Temp 96.7 Pulse 104 Resp 43 B/P (MAP) 134/84 (101) Pulse Ox 95 98 98 O2 Delivery Nasal Cannula High Flow N/C High Flow N/C O2 Flow Rate 10.00 10.00 10.00 Capillary Refill : Progress Note : Progress Note O2 SAT 93% ON ARRIVAL ON HOME O2 AT 15L/NC, THEN IMMEDIATELY UP TO 99% AFTER GETTING SETTLED ONTO ER CART. PLACED ON VAPOTHERM BY RT ON ARRIVAL, AND O2 SATS REMAINED 98-99%, BUT PT STILL WITH MILDLY LABORED BREATHING, STILL ABLE TO TALK IN FULL SENTENCES, NO DETERIORATION IN PT'S CONDITION DURING ER STAY ECG Initial ECG Impression Date: Jan 21, 2018 Initial ECG Impression Time: 17:54 Initial ECG Rate: 105 Initial ECG Rhythm: S.Tach (OLD INFERIOR INFARCT) Initial ECG Comparisson: Changed (AXIS CHANGE FROM EKG 12/08/17. NO ST SEGMENT CHANGES) Diagnostic Imaging Comments CXR--INTERSTITIAL CHANGES, SIMILAR TO PREVIOUS, PER RADIOLOGIST REPORT AT 1830 Reviewed: Reviewed by Me Departure Communication (Admissions) 1853--SPOKE WITH DR. BRITT, ACCEPTS PT FOR ADMIT. ORDERS NOTED, WILL CONSULT PULMONOLOGY AND CARDIOLOGY IN AM Impression Primary Impression: Respiratory distress Additional Impressions: Interstitial lung disease CHRONIC HYPOXIA HX OF CAD/SD WITH STENTS Elevated liver enzymes Chronic respiratory failure UTI (urinary tract infection) Mild congestive heart failure NIDDM Disposition: ADMITTED INPATIENT Condition: Stable Admissions Decision to Admit Reason: Admit from ER (General) Decision to Admit/Date: Jan 21, 2018 Time/Decision to Admit Time: 18:55 Departure-Patient Inst. Referrals: ABRAM BRITT DO (PCP/Family) Primary Care Physician SHAMIR TRIPATHI DO Jan 21, 2018 18:17
[2018-01-21 18:20] LABS: BASOPHILS % (AUTO) 0 % (0-10); EOSINOPHILS % (AUTO) 0 % (0-10); HEMATOCRIT 38 % (35-52); LYMPHOCYTES # (AUTO) 0.5 X 10^3 (1.0-4.0); LYMPHOCYTES % (AUTO) 8 % (12-44); MEAN CORPUSCULAR HEMOGLOBIN 32 PG (25-34); MEAN CORPUSCULAR HGB CONC 34 G/DL (32-36); MEAN CORPUSCULAR VOLUME 93 FL (80-99); MEAN PLATELET VOLUME 9.9 FL (7.4-10.4); MONOCYTES # (AUTO) 0.3 X 10^3 (0.0-1.0); MONOCYTES % (AUTO) 4 % (0-12); NEUTROPHILS # (AUTO) 5.9 X 10^3 (1.8-7.8); NEUTROPHILS % (AUTO) 89 % (42-75); PLATELET COUNT 279 10^3/uL (130-400); RED BLOOD COUNT 4.07 10^6/uL (4.35-5.85); RED CELL DISTRIBUTION WIDTH 17.6 % (10.0-14.5); WHITE BLOOD COUNT 6.7 10^3/uL (4.3-11.0)
--- NOTE | 2018-01-21 18:22 | Diagnostic Imaging Report ---
INDICATION: Shortness of breath. EXAMINATION: Portable chest at 6:04 p.m. FINDINGS: There is diffuse interstitial infiltrate in the lungs. There is no effusion or pneumothorax. Heart size and pulmonary vascularity are within normal limits. IMPRESSION: Diffuse interstitial infiltrate in the lungs similar to a previous exam dated 12/10/2017. Dictated by: Dictated on workstation # [id number]
[2018-01-21 18:23] LABS: INR 1.1 (0.8-1.4); PROTHROMBIN TIME PATIENT 13.8 SEC (12.2-14.7)
[2018-01-21] MEDS ORDERED: FUROSEMIDE 40 MG/4 ML INJ (LASIX) IV STA (18:26)
[2018-01-21 18:34] LABS: ALANINE AMINOTRANSFERASE 103 U/L (0-55); ALBUMIN 3.6 GM/DL (3.2-4.5); ALKALINE PHOSPHATASE 51 U/L (40-136); BILIRUBIN,TOTAL 0.7 MG/DL (0.1-1.0); BUN/CREATININE RATIO 25; CALCIUM 9.3 MG/DL (8.5-10.1); CARBON DIOXIDE 30 MMOL/L (21-32); CHLORIDE 93 MMOL/L (98-107); CREATINE KINASE 146 U/L (29-168); CREATININE SERUM 0.57 MG/DL (0.60-1.30); GFR ESTIMATED > 60; GLUCOSE 212 MG/DL (70-105); MAGNESIUM 2.1 MG/DL (1.8-2.4); POTASSIUM 4.6 MMOL/L (3.6-5.0); SODIUM 131 MMOL/L (135-145); TOTAL PROTEIN 6.3 GM/DL (6.4-8.2)
[2018-01-21 18:36] LABS: ABG BASE EXCESS 6.8 MMOL/L (-2.5-2.5); ABG OXYGEN SATURATION 99 % (94-100); ABG PCO2 45 MMHG (35-45); ABG PH 7.45 (7.37-7.43); ABG PO2 91 MMHG (79-93); ABG TCO2 32.4 MMOL/L (21.0-31.0)
[2018-01-21 18:38] LABS: ALLENS TEST POSITIVE; INSPIRED O2 45%; PATIENT TEMP 97.7; VENTILATOR NO
[2018-01-21 18:48] LABS: CREATINE KINASE MB 4.3 NG/ML (<6.6)
[2018-01-21 18:54] LABS: BAND NEUTROPHILS 13 %; BASOPHILS % (MANUAL) 0 %; EOSINOPHILS % (MANUAL) 0 %; LYMPHOCYTES % (MANUAL) 9 %; MONOCYTES % (MANUAL) 3 %; NEUTROPHILS % (MANUAL) 75 %; RBC MORPH NORMAL
[2018-01-21] MEDS ORDERED: cefTRIAXone FOR IV USE 1,000 MG in NS (IVPB) 50 ML IV ONE (19:00)
[2018-01-21 19:06] LABS: BILIRUBIN,URINE NEGATIVE (NEGATIVE); CLARITY,URINE VERY CLOUDY; COLOR,URINE YELLOW; GLUCOSE, URINE (UA) NEGATIVE (NEGATIVE); KETONES,URINE NEGATIVE (NEGATIVE); LEUKOCYTE ESTERASE ,URINE 3+ (NEGATIVE); NITRITE,URINE NEGATIVE (NEGATIVE); PH,URINE 8 (5-9); PROTEIN,URINE 1+ (NEGATIVE); UROBILINOGEN,URINE NORMAL (NORMAL)
[2018-01-21 19:18] LABS: AMORPHOUS SEDIMENT,UR FEW AMOR PHOSPHATE /LPF; BACTERIA,URINE FEW /HPF; RENAL EPITHELIAL CELLS,URINE 0-2 /HPF; SQUAMOUS EPITHELIAL CELL,UR RARE /HPF; WBC,URINE 50-100 /HPF
[2018-01-21] MEDS ORDERED: AZITHROMYCIN 500 MG/NS 250 ML IVPB IV NR ×2 (20:30)
[2018-01-21] MEDS ORDERED: CATHETER FLUSH 10 ML SYR IV PRN (20:30)
[2018-01-21] MEDS ORDERED: RT-ALBUTEROL/IPRATROPIUM 3 ML (DUONEB) VIAL INH PRN (22:15)
[2018-01-21] MEDS: CATHETER FLUSH 10 ML SYR IV SCH (22:33)
[2018-01-22] VITALS (23 sets, daily range): BP systolic 91–114; BP diastolic 46–78
[2018-01-22] MEDS: methylPREDNISolone 125 MG (Solu-MEDROL) VIAL IV SCH ×3 (00:38→12:40)
[2018-01-22] MEDS: RT-ALBUTEROL/IPRATROPIUM 3 ML (DUONEB) VIAL INH SCH ×6 (01:39→21:15)
[2018-01-22] MEDS ORDERED: FUROSEMIDE 40 MG/4 ML INJ (LASIX) IV SCH (02:00)
[2018-01-22 03:35] LABS: BASOPHILS % (AUTO) 0 % (0-10); EOSINOPHILS % (AUTO) 0 % (0-10); HEMATOCRIT 34 % (35-52); HEMOGLOBIN 11.6 G/DL (11.5-16.0); LYMPHOCYTES # (AUTO) 0.3 X 10^3 (1.0-4.0); LYMPHOCYTES % (AUTO) 6 % (12-44); MEAN CORPUSCULAR HEMOGLOBIN 32 PG (25-34); MEAN CORPUSCULAR HGB CONC 35 G/DL (32-36); MEAN CORPUSCULAR VOLUME 93 FL (80-99); MONOCYTES # (AUTO) 0.1 X 10^3 (0.0-1.0); MONOCYTES % (AUTO) 2 % (0-12); NEUTROPHILS # (AUTO) 4.7 X 10^3 (1.8-7.8); NEUTROPHILS % (AUTO) 92 % (42-75); PLATELET COUNT 245 10^3/uL (130-400); RED BLOOD COUNT 3.61 10^6/uL (4.35-5.85); RED CELL DISTRIBUTION WIDTH 17.5 % (10.0-14.5); WHITE BLOOD COUNT 5.1 10^3/uL (4.3-11.0)
[2018-01-22 03:54] LABS: ALANINE AMINOTRANSFERASE 93 U/L (0-55); ALBUMIN 3.5 GM/DL (3.2-4.5); ALKALINE PHOSPHATASE 46 U/L (40-136); BILIRUBIN,TOTAL 0.6 MG/DL (0.1-1.0); BUN/CREATININE RATIO 29; CARBON DIOXIDE 28 MMOL/L (21-32); CHLORIDE 93 MMOL/L (98-107); CREATININE SERUM 0.51 MG/DL (0.60-1.30); GFR ESTIMATED > 60; GLUCOSE 172 MG/DL (70-105); POTASSIUM 3.8 MMOL/L (3.6-5.0); SODIUM 134 MMOL/L (135-145)
[2018-01-22] MEDS: inSUlin ASPART (NovoLOG) 1 UNIT/0.01 ML (CHARGE PER UNIT) SC SCH ×4 (05:00→21:07)
[2018-01-22] MEDS: CATHETER FLUSH 10 ML SYR IV SCH ×3 (05:01→22:17)
[2018-01-22] MEDS ORDERED: NS IV 500 ML 500 ML ONE (06:57)
--- NOTE | 2018-01-22 07:11 | Pulmonary Consultation ---
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 She is well known to my office and was referred to [facility] for second opionion and further treatment options. She does have f/u visits with my office and [facility] however treatment hasnt change much besides for steroid titration. SHe recently decreased prednisone to 20mg daily per [facility] and she believes this is when her progressive SOB started. Pt is currently is acute on chronic respiratory failure requiring BIPAP. I am consulted for pulmonary management. Allergies and Home Medications Allergies Coded Allergies: No Known Drug Allergies (Unverified , 08/03/17) Home Medications Albuterol Sulfate 18 Gm Hfa.aer.ad, 2 PUFF INH Q4H PRN for SHORTNESS OF BREATH, (Reported) Amoxicillin/Potassium Clav 1 Each Tablet, 1 TAB PO BID, (Reported) 5 DAY THERAPY FILLED 01-20-18 Aspirin 81 Mg Tab.chew, 81 MG PO HS, (Reported) Atorvastatin Calcium 80 Mg Tablet, 80 MG PO HS, (Reported) Azathioprine 50 Mg Tablet, 50 MG PO DAILY, (Reported) Calcium Carbonate/Vitamin D3 1 Each Tablet, 1 TAB PO 1200,2100, (Reported) Clopidogrel Bisulfate 75 Mg Tablet, 75 MG PO DAILY, (Reported) Furosemide 40 Mg Tablet, 20 MG PO Q48H, (Reported) Levothyroxine Sodium 75 Mcg Tablet, 75 MCG PO DAILY, (Reported) Lorazepam 0.5 Mg Tablet, 0.5 MG PO DAILY, (Reported) Lorazepam 0.5 Mg Tablet, 0.5 MG PO TID PRN for ANXIETY, (Reported) Losartan Potassium 25 Mg Tablet, 12.5 MG PO DAILY, (Reported) TAKES 1/2 (25MG) TABLET Metformin HCl 500 Mg Tablet, 500 MG PO BID WITH MEALS, (Reported) Metoprolol Succinate 25 Mg Tab.er.24h, 25 MG PO DAILY, (Reported) Nystatin 100,000 Unit/1 Ml Oral.susp, 5 ML PO QID, (Reported) Potassium Chloride 10 Meq Tablet.er, 10 MEQ PO Q48H, (Reported) Prednisone 20 Mg Tab, 20 MG PO DAILY, (Reported) Promethazine HCl/Codeine 118 Ml Syrup, 5 ML PO Q6H PRN for COUGH, (Reported) Sennosides/Docusate Sodium 1 Each Tablet, 1 TAB PO HS, (Reported) Sulfamethoxazole/Trimethoprim 1 Each Tablet, 1 TAB PO MoWeFr, (Reported) Venlafaxine HCl 75 Mg Cap.er.24h, 75 MG PO DAILY, (Reported) [[place]bee W/ C] , 1 TAB PO 1200,2100, (Reported) Past Nbxesdc-Gusvzg-Hmqnho Hx Patient Social History Alcohol Use: Denies Use Recreational Drug Use: No Smoking Status: Never a Smoker 2nd Hand Smoke Exposure: No Recent Foreign Travel: No Contact w/Someone Who Travel: No Recent Infectious Disease Expo: No Recent Hopitalizations: No Immunizations Up To Date Date of Pneumonia Vaccine: Apr 06, 2016 Date of Influenza Vaccine: Apr 06, 2017 Seasonal Allergies Seasonal Allergies: No Past Medical History Surgeries: Yes Cardiac, Section, Coronary Stent, Orthopedic Respiratory: Yes Pneumonia Currently Using CPAP: No Currently Using BIPAP: No Cardiac: Yes Atrial Fibrillation, Coronary Artery Disease, Heart Attack, High Cholesterol, Hypertension Neurological: No : No 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 ) Hypothyroidsim, Diabetes, Non-Insulin dep HEENT: No Loss of Vision: Denies Hearing Impairment: Denies Cancer: No Psychosocial: No Integumentary: No Blood Disorders: Yes (ANEMIA) Adverse Reaction/Blood Tranf: No Family Medical History No Pertinent Family Hx Review of Systems Time Seen by Provider: 10:15 Constitutional: Sweats, Malaise ENT: Nose congestion Respiratory: Shortness of breath, SOB with excertion Gastrointestinal: Nausea Neurological: Weakness Sepsis Event Evaluation Height, Weight, BMI Height: 5'6.00" Weight: 100lbs. 4.0oz. 45.800485hi; 16.0 BMI Method:Stated Exam Exam Vital Signs Date Time Temp Pulse Resp B/P (MAP) Pulse Ox O2 Delivery O2 Flow Rate FiO2 01/22/18 06:00 110 28 97/67 (77) 95 Vapotherm 45.00 25.00 01/22/18 05:00 113 22 101/58 (72) 94 Vapotherm 45.00 25.00 01/22/18 04:00 99 18 92/65 (74) 95 Vapotherm 45.00 25.00 01/22/18 04:00 98 Vapotherm 25.00 45 01/22/18 03:00 106 19 99/58 (72) 94 Vapotherm 45.00 25.00 01/22/18 02:00 117 21 95/69 (78) 95 Vapotherm 45.00 25.00 01/22/18 01:39 96 Vapotherm 25.00 45 01/22/18 01:02 89 01/22/18 01:00 89 19 92/64 (73) 97 Vapotherm 45.00 25.00 01/22/18 00:40 97.0 01/22/18 00:00 98 Vapotherm 25.00 45 01/22/18 00:00 91 20 93/62 (72) 96 Vapotherm 45.00 25.00 01/21/18 23:00 100 15 99/65 (76) 98 Vapotherm 45.00 25.00 01/21/18 22:00 97 19 98/59 (72) 97 Vapotherm 45.00 25.00 01/21/18 21:45 98 25 105/74 (84) 98 Vapotherm 45.00 25.00 01/21/18 21:30 95 32 105/92 (96) 98 Vapotherm 45.00 25.00 01/21/18 21:18 96 Vapotherm 25.00 45 01/21/18 21:15 96 22 99/67 (78) 97 Vapotherm 45.00 25.00 01/21/18 21:00 93 28 88/64 (72) 97 Vapotherm 45.00 25.00 01/21/18 20:55 97 96 45 01/21/18 20:45 97 38 95/67 (76) 95 Vapotherm 45.00 25.00 01/21/18 20:30 97 Vapotherm 25.00 45 01/21/18 20:20 97.3 105 27 106/99 (101) 96 Vapotherm 45.00 25.00 01/21/18 20:00 97 26 106/70 98 Vapotherm 01/21/18 18:00 98 High Flow N/C 10.00 01/21/18 17:52 98 High Flow N/C 10.00 8/29/18 17:48 96.7 104 43 134/84 (134) 95 Nasal Cannula 10.00 I & O 01/22/18 07:00 Intake Total 560 ml Output Total 695 ml Balance -135 ml Height & Weight Height: 5'6.00" Weight: 100lbs. 4.0oz. 45.685162ct; 16.0 BMI Method:Stated General Appearance: Anxious, Moderate Distress, Thin HEENT: PERRL/EOMI, Normal ENT Inspection, Pharynx Normal Neck: Normal Inspection, Non Tender, Supple Respiratory: Accessory Muscle Use, Crackles, Decreased Breath Sounds, Respiratory Distress Cardiovascular: Regular Rate, Rhythm, No Edema, No Gallop Capillary Refill: Less Than 3 Seconds Gastrointestinal: normal bowel sounds, non tender, soft, no organomegaly Extremity: Normal Capillary Refill, Normal Inspection Neurologic/Psychiatric: Alert Skin: Normal Color, Warm/Dry Lymphatic: No Adenopathy Results Lab Laboratory Tests 01/21/18 18:00 01/22/18 02:55 Assessment/Plan Assessment/Plan ILD hx of black mold exposure -Has been evaluated by [facility] - no further treatment recommended. PUlmonary fibrosis acute exacerbation -SOlumedrol continue high dose for now. -SVNS -High flow oxygen Acute on chronic lung disease hx of pseudomonus UTI -Change abx to zosyn - Hypotension Sinus tach -monitor, IVF JUANA WILLS DO Jan 22, 2018 07:11
--- NOTE | 2018-01-22 07:21 | History & Physicial ---
History of Present Illness History of Present Illness Reason for visit/HPI Patient brought to the emergency room by . Patient short of breath. Patient needed we'll get him into the emergency room and help. Patient usually is on oxygen at 4 L. Patient still short of breath now at 15 L of nasal oxygen. Patient has history of interstitial lung disease. Patient had NM this year. Patient exposed to mold Date of Admission Jan 21, 2018 at 19:11 Time Seen by Provider: 07:15 I consulted on this patient on 01/22/18 07:17 Attending Physician Benny Britt DO Admitting Physician Benny Britt DO Consult Allergies and Home Medications Allergies Coded Allergies: No Known Drug Allergies (Unverified , 08/03/17) Home Medications Albuterol Sulfate 18 Gm Hfa.aer.ad, 2 PUFF INH Q4H PRN for SHORTNESS OF BREATH, (Reported) Aspirin 81 Mg Tab.chew, 81 MG PO HS, (Reported) Atorvastatin Calcium 80 Mg Tablet, 80 MG PO HS, (Reported) Azathioprine 50 Mg Tablet, 50 MG PO DAILY, (Reported) Calcium Carbonate/Vitamin D3 1 Each Tablet, 1 TAB PO BID, (Reported) Clopidogrel Bisulfate 75 Mg Tablet, 75 MG PO DAILY, (Reported) Fluticasone/Salmeterol 12 Gm Hfa.aer.ad, 2 PUFF IH BID, (Reported) Furosemide 40 Mg Tablet, 20 MG PO Q48H, (Reported) Levothyroxine Sodium 75 Mcg Tablet, 75 MCG PO DAILY, (Reported) Losartan Potassium 25 Mg Tablet, 12.5 MG PO DAILY, (Reported) TAKES 1/2 (25MG) TABLET Metformin HCl 500 Mg Tablet, 500 MG PO BID WITH MEALS, (Reported) Metoprolol Succinate 25 Mg Tab.er.24h, 25 MG PO DAILY, (Reported) Potassium Chloride 10 Meq Tablet.er, 10 MEQ PO Q48H, (Reported) Prednisone 20 Mg Tab, PO UD, (Reported) TAKE 60MG DAILY X 13 DAYS (UNTIL 12-15-17) THEN TAKE 40MG DAILY UNTIL FOLLOW UP WITH PULMONOLOGY Sennosides/Docusate Sodium 1 Each Tablet, 1 TAB PO BID, (Reported) Sulfamethoxazole/Trimethoprim 1 Each Tablet, 1 TAB PO MoWeFr, (Reported) FILLED 12-01-17 Venlafaxine HCl 75 Mg Cap.er.24h, 75 MG PO DAILY Prescribed by: BENNY BRITT on 12/10/17 0742 [Philip W/ Cas] , 1 TAB PO 1800, (Reported) Patient Home Medication List Home Medication List Reviewed: No Past Tylvzqn-Zuklgg-Mxuzhi Hx Patient Social History Marrital Status: Employed/Student: retired Alcohol Use: Denies Use Recreational Drug Use: No Smoking Status: Never a Smoker 2nd Hand Smoke Exposure: No Physical Abuse Screen: No Sexual Abuse: No Recent Foreign Travel: No Contact w/other who traveled: No Recent Hopitalizations: No Recent Infectious Disease Expo: No Immunizations Up To Date Date of Pneumonia Vaccine: Apr 06, 2016 Date of Influenza Vaccine: Apr 06, 2017 Seasonal Allergies Seasonal Allergies: No Surgeries Yes Cardiac, Section, Coronary Stent, Orthopedic Respiratory Yes Asthma, Pneumonia Currently Using CPAP: No Currently Using BIPAP: No Cardiovascular Yes Atrial Fibrillation, Coronary Artery Disease, Heart Attack, High Cholesterol, Hypertension Neurological No Reproductive System : No Sexually Transmitted Disease: No HIV/AIDS: No Female Reproductive Disorders: Denies 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 ) Endocrine Disorders: Hypothyroidsim, Diabetes, Non-Insulin dep HEENT History of HEENT Disorders: No Loss of Vision: Denies Hearing Impairment: Denies Cancer No Psychosocial History of Psychiatric Problem: No Integumentary History of Skin or Integumenta: No Blood Transfusions History of Blood Disorders: Yes (ANEMIA) Adverse Reaction to a Blood Tr: No Family Medical History Significant Family History: No Pertinent Family Hx Review of Systems Constitutional: malaise, weakness EENTM: no symptoms reported Respiratory: dyspnea on exertion, short of breath Cardiovascular: no symptoms reported Gastrointestinal: no symptoms reported Genitourinary: no symptoms reported Physical Exam Vital Signs Vital Signs - First Documented 01/21/18 01/21/18 17:48 20:30 Temp 96.7 Pulse 104 Resp 43 B/P (MAP) 134/84 (101) Pulse Ox 95 O2 Delivery Nasal Cannula O2 Flow Rate 10.00 FiO2 45 Capillary Refill : Less Than 3 Seconds Height, Weight, BMI Height: 5'6.00" Weight: 100lbs. 4.0oz. [id number]; 16.0 BMI Method:Stated General Appearance: No Apparent Distress, WD/WN Eyes: Bilateral Eye Normal Inspection HEENT: Normal ENT Inspection Neck: Full Range of Motion, Normal Inspection Respiratory: No Accessory Muscle Use, No Respiratory Distress, Decreased Breath Sounds Cardiovascular: Regular Rate, Rhythm, No Murmur Gastrointestinal: Non Tender, Soft Assessment/Plan Assessment and Plan Respiratory distress. interstitial lung disease. chronic hypoxia. UTI. History of NM. Exposure to mold. Hypotension Admission Diagnosis Admission Status: Inpatient Order (span 2 midnights) Reason for Inpatient Admission: Hypoxia. Nasal oxygen at 15 L. Interstitial lung disease. Clinical Quality Measures DVT/VTE Risk/Contraindication: Risk Factor Score Per Nursin RFS Level Per Nursing on Admit: 4+=Very High BENNY BRITT DO Jan 22, 2018 07:21
--- NOTE | 2018-01-22 07:28 | Diagnostic Imaging Report ---
INDICATION: Respiratory failure. Frontal chest obtained at 3:09 a.m. is compared with 01/21/18. FINDINGS: Heart is mildly large. Diffuse interstitial infiltrates remain unchanged from the prior study. There is continued elevation of the right hemidiaphragm. There is no pneumothorax or pleural fluid or other new finding. IMPRESSION: Stable diffuse interstitial infiltrate with unchanged elevation right hemidiaphragm. Dictated by: Dictated on workstation # [id number]
[2018-01-22] MEDS ORDERED: fluCOnazole (DIFLUCAN) 100 MG TAB PO NR (08:15)
--- NOTE | 2018-01-22 08:38 | Consultation-Cardiology ---
HPI-Cardiology Cardiology Consultation: Date of Consultation 01/22/18 Time Seen by Provider: 08:25 Date of Admission 01-21-18 Attending Physician Abram Britt DO Admitting Physician Abram Britt DO Consulting Physician Germaine Schumacher MD HPI: Chief Complaint: Increasing dyspnea Mrs. Yañez is a 72 year old female who has been admitted to ICU 5 from the ED with c/o increasing shortness of breath. She states she had been to see her remote mortgage underwriter at Dr. Stoll approx 2 weeks ago and he decreased her prednisone from 30mg to 20 mg. She states she was doing well until a Friday. She states she had gotten up to use the bathroom during the night and had an episode where she felt very short of breath. She states it passed and she was feeling better than it happened again the next night, again she began to feel better. However, yesterday she felt increasingly worse and just could not catch her breath. She contacted Dr. Quan's office and was directed to the ED. She denies any c/o CP, palpitations, syncope or near syncope. No c/o LE edema. She states she is feeling somewhat better than yesterday. No c/o fever , chills, n/v/d. She is oxygen dependant. Review of Systems-Cardiology Review of Systems Constitutional: No chills, No fever; tiredness Eyes: No vision change Ears/Nose/Throat: No epistaxis; mouth pain (reports thrush) Respiratory: As described under HPI Cardiovascular: As described under HPI Gastrointestinal: No diarrhea, No nausea, No vomiting Genitourinary: No dysuria, No hematuria Musculoskeletal: no symptoms reported Skin: No rash, No ulcerations Psychiatric/Neurological: No focal weakness, No syncope Hematologic: No bleeding abnormalities CGD-Exuypg-Qbtlnq Hx Patient Social History Marrital Status: Employed/Student: retired Alcohol Use: Denies Use Recreational Drug Use: No Smoking Status: Never a Smoker 2nd Hand Smoke Exposure: No Recent Foreign Travel: No Recent Infectious Disease Expo: No Hospitalization with Isolation: Denies Physical Abuse Screen: No Sexual Abuse: No Immunizations Up To Date Date of Pneumonia Vaccine: Apr 06, 2016 Date of Influenza Vaccine: Apr 06, 2017 Past Medical History PMH As described under Assessment. Family Medical History Family Medical History: No fam h/o early CAD or SCD. Father and brother had KS in their later age Allergies and Home Medications Allergies Coded Allergies: No Known Drug Allergies (Unverified , 08/03/17) Home Medications Albuterol Sulfate 18 Gm Hfa.aer.ad, 2 PUFF INH Q4H PRN for SHORTNESS OF BREATH, (Reported) Amoxicillin/Potassium Clav 1 Each Tablet, 1 TAB PO BID, (Reported) 5 DAY THERAPY FILLED 01-20-18 Aspirin 81 Mg Tab.chew, 81 MG PO HS, (Reported) Atorvastatin Calcium 80 Mg Tablet, 80 MG PO HS, (Reported) Azathioprine 50 Mg Tablet, 50 MG PO DAILY, (Reported) Calcium Carbonate/Vitamin D3 1 Each Tablet, 1 TAB PO 1200,2100, (Reported) Clopidogrel Bisulfate 75 Mg Tablet, 75 MG PO DAILY, (Reported) Furosemide 40 Mg Tablet, 20 MG PO Q48H, (Reported) Levothyroxine Sodium 75 Mcg Tablet, 75 MCG PO DAILY, (Reported) Lorazepam 0.5 Mg Tablet, 0.5 MG PO DAILY, (Reported) Lorazepam 0.5 Mg Tablet, 0.5 MG PO TID PRN for ANXIETY, (Reported) Losartan Potassium 25 Mg Tablet, 12.5 MG PO DAILY, (Reported) TAKES 1/2 (25MG) TABLET Metformin HCl 500 Mg Tablet, 500 MG PO BID WITH MEALS, (Reported) Metoprolol Succinate 25 Mg Tab.er.24h, 25 MG PO DAILY, (Reported) Nystatin 100,000 Unit/1 Ml Oral.susp, 5 ML PO QID, (Reported) Potassium Chloride 10 Meq Tablet.er, 10 MEQ PO Q48H, (Reported) Prednisone 20 Mg Tab, 20 MG PO DAILY, (Reported) Promethazine HCl/Codeine 118 Ml Syrup, 5 ML PO Q6H PRN for COUGH, (Reported) Sennosides/Docusate Sodium 1 Each Tablet, 1 TAB PO HS, (Reported) Sulfamethoxazole/Trimethoprim 1 Each Tablet, 1 TAB PO MoWeFr, (Reported) Venlafaxine HCl 75 Mg Cap.er.24h, 75 MG PO DAILY, (Reported) [Allbee W/ C] , 1 TAB PO 1200,2100, (Reported) Patient Home Medication List Home Medication List Reviewed: Yes Physical Exam-Cardiology Physical Exam Vital Signs/I&O 01/22/18 01/22/18 01/22/18 01/22/18 20:00 21:00 21:00 21:01 Temp 98.9 Pulse 124 111 Resp 33 33 B/P (MAP) 111/61 (78) 91/57 (68) Pulse Ox 93 94 96 O2 Delivery Vapotherm O2 Flow Rate 45.00 40.00 15.00 25.00 15.00 FiO2 40 01/22/18 01/22/18 01/22/18 01/23/18 21:15 22:00 23:00 00:00 Pulse 121 121 108 Resp 29 17 34 B/P (MAP) 104/61 (75) 98/62 (74) 114/65 (81) Pulse Ox 96 96 95 95 O2 Delivery Vapotherm Vapotherm Vapotherm Vapotherm O2 Flow Rate 15.00 45.00 45.00 45.00 13.00 13.00 13.00 FiO2 45 01/23/18 01/23/18 01/23/18 01/23/18 00:13 01:00 02:28 04:00 Temp 98.4 Pulse 108 96 Resp 23 B/P (MAP) 95/58 (70) Pulse Ox 97 98 O2 Delivery Vapotherm Vapotherm O2 Flow Rate 13.00 45.00 11.00 FiO2 45 01/23/18 01/23/18 06:51 07:00 Pulse 100 Pulse Ox 96 O2 Delivery Vapotherm O2 Flow Rate 11.00 FiO2 45 01/23/18 00:00 Intake Total 1809 ml Output Total 475 ml Balance 1334 ml Capillary Refill : Less Than 3 Seconds Constitutional: AAO x 3, other (thin, frail) HEENT: PERRL, hearing is well preserved Neck: No carotid bruit; carotid pulses are 2 + bilaterally Respiratory: chest expansion is symmetric, chest is bilaterally symmetric, crackles (lower lobes bilat, R>L), other (dyspneic with conversation) Cardiovascular: tachycardia, S1 and S2 Gastrointestinal: No tender; soft, audible bowel sounds Rectal: deferred Extremities: no lower extremity edema bilateral Neurologic/Psychiatric: grossly intact Skin: No rash, No ulcerations Data Review Labs Laboratory Tests 01/22/18 11:31: Glucometer 254H 01/22/18 15:47: Glucometer 277H 01/22/18 21:00: Glucometer 304H 01/23/18 03:25: White Blood Count 9.4, Red Blood Count 2.94L, Hemoglobin 9.4L, Hematocrit 28L, Mean Corpuscular Volume 94, Mean Corpuscular Hemoglobin 32, Mean Corpuscular Hemoglobin Concent 34, Red Cell Distribution Width 17.8H, Platelet Count 219, Mean Platelet Volume 9.4, Neutrophils (%) (Auto) 90H, Lymphocytes (%) (Auto) 2L , Monocytes (%) (Auto) 8, Eosinophils (%) (Auto) 0, Basophils (%) (Auto) 0, Neutrophils # (Auto) 8.4H, Lymphocytes # (Auto) 0.2L, Monocytes # (Auto) 0.8, Eosinophils # (Auto) 0.0, Basophils # (Auto) 0.0, Neutrophils % (Manual) 89, Lymphocytes % (Manual) 1, Monocytes % (Manual) 10, Poikilocytosis SLIGHT, Basophilic Stippling SLIGHT, Anisocytosis SLIGHT, Sodium Level 133L, Potassium Level 3.4L, Chloride Level 94L, Carbon Dioxide Level 29, Anion Gap 10, Blood Urea Nitrogen 18, Creatinine 0.50L, Estimat Glomerular Filtration Rate > 60, BUN /Creatinine Ratio 36, Glucose Level 217H, Calcium Level 8.7, Corrected Calcium 9.5, Phosphorus Level 1.4L, Magnesium Level 1.9, Total Bilirubin 0.3, Aspartate Amino Transf (AST/SGOT) 37H, Alanine Aminotransferase (ALT/SGPT) 75H, Alkaline Phosphatase 41, B-Type Natriuretic Peptide 156.4H, Total Protein 4.9L, Albumin 3.0L Microbiology 01/21/18 Urine Culture - Preliminary, [facility] Results To Follow Radiology NAME: LEYLA YAÑEZ MED REC#: [id number] PT STATUS: ADM IN : 1945 PHYSICIAN: ABRAM BRITT DO ADMIT DATE: 01/21/18/ICU Draft Date of Exam:01/22/18 CHEST 1 VIEW, AP/PA ONLY INDICATION: Respiratory failure. Frontal chest obtained at 3:09 a.m. is compared with 01/21/18. FINDINGS: Heart is mildly large. Diffuse interstitial infiltrates remain unchanged from the prior study. There is continued elevation of the right hemidiaphragm. There is no pneumothorax or pleural fluid or other new finding. IMPRESSION: Stable diffuse interstitial infiltrate with unchanged elevation right hemidiaphragm. Dictated on workstation # [id number] Dict: 01/22/18 0717 Trans: 01/22/18 0727 [id number] Interpreted by: VANESSA PANCHAL MD Electronically signed by: ECG Impression ECG Initial ECG Rhythm: S.Tach A/P-Cardiology Assessment/Admission Diagnosis Ac on chronic resp failure, multifactorial (see below) UTI with sepsis - management per medical services Chronic diastolic CHF - clinically compensated Interstitial lung disease. Bibasilar pulmonary infiltrates during hosp of July and August 2017: CHF vs atelectasis vs pneumonia; unchanged on CT of 08/25/17. 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 Last CT chest of 10/09/17 showed some improvement of ground glass infiltrates and no new abnormality. Last CT chest on 11/18/17: worsening infiltrates and ground glass opacities - follows with Dr. Stoll of pulmonary services at [facility] Black mold exposure in her home Coronary artery disease, status post cardiac catheterization done by Dr. 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 There is no significant residual stenosis in the right coronary artery and the flow was normal, but right ventricular branch was lost during the procedure due to infarct-related thrombus. A 90% to 95% stenosis of the proximal left circumflex artery, which was treated with stenting with Alpine Xience 2.25 x 12 mm stent with reduction of stenosis to 0% residual. The left anterior descending artery has diffuse [id number] disease H/o intermittent hypotension Echo of 11/01/17: LVEF 50-55%, grade I rouse dysfunction, no significant pericard eff or valvular heart disease, PASP 25-30 mmHg Well preserved global left ventricular systolic function with ejection fraction 60%, postero-basal hypokinesis, no significant mitral regurgitation and mild elevation of left ventricular end-diastolic pressure on LHC of 08/04/17 TSH 0.26 on lab of 3-13-18 - suggestive of hyperthyroidism - repeat TSH today Elevated ESR, followed and treated by [facility] Chronic liver enzyme elevation - followed by PCP Chronic hyponatremia - managed by PCP Clinical Quality Measures DVT/VTE Risk/Contraindication: Risk Factor Score Per Nursin RFS Level Per Nursing on Admit: 4+=Very High Contraindications-Pharm: Other *list below* ABHISHEK BANDA Jan 22, 2018 08:38
[2018-01-22] MEDS ORDERED: AZITHROMYCIN 250 MG TAB (ZITHROMAX) PO SCH (09:00)
[2018-01-22] MEDS ORDERED: NYST1000 PO (09:26)
[2018-01-22] MEDS ORDERED: ATOR80TA76 PO (09:26)
[2018-01-22] MEDS ORDERED: VENL75CA93 PO (09:26)
[2018-01-22] MEDS ORDERED: LORA0.5T PO ×2 (09:26)
[2018-01-22] MEDS ORDERED: CODE118S4 PO (09:26)
[2018-01-22] MEDS ORDERED: AMOX1TAB12 PO (09:29)
[2018-01-22] MEDS: CLOPIDOGREL 75 MG (PLAVIX) TABLET PO SCH (09:46)
[2018-01-22] MEDS: ASPIRIN 81 MG CHEW (CHILDREN'S ASA) PO SCH (09:47)
[2018-01-22] MEDS ORDERED: PIPERACILLIN/TAZO 4.5 GM/NS 100 ML IV NR ×2 (10:00)
--- NOTE | 2018-01-22 11:09 | Consultation-Cardiology ---
HPI-Cardiology Cardiology Consultation: Date of Consultation 01/22/18 Time Seen by Provider: 10:20 Date of Admission Attending Physician Benny Boyd DO Admitting Physician Benny Boyd DO Consulting Physician LIZY PINON MD, MA, FACP, FACC, FSCAI, CCDS HPI: Chief Complaint: Increasing dyspnea Mrs. Yañez is a 72 year old female who has been admitted to ICU 5 from the ED with c/o increasing shortness of breath. She states she had been to see her sock boarder at Dr. Stoll approx 2 weeks ago and he decreased her prednisone from 30mg to 20 mg. She states she was doing well until a Friday. She states she had gotten up to use the bathroom during the night and had an episode where she felt very short of breath. She states it passed and she was feeling better than it happened again the next night, again she began to feel better. However, yesterday she felt increasingly worse and just could not catch her breath. She contacted Dr. Quan's office and was directed to the ED. She denies any c/o CP, palpitations, syncope or near syncope. No c/o LE edema. She states she is feeling somewhat better than yesterday. No c/o fever , chills, n/v/d. She is oxygen dependant. Review of Systems-Cardiology Review of Systems Constitutional: No chills, No fever; tiredness Eyes: No vision change Ears/Nose/Throat: No epistaxis; mouth pain (reports thrush) Respiratory: As described under HPI Cardiovascular: As described under HPI Gastrointestinal: No diarrhea, No nausea, No vomiting Genitourinary: No dysuria, No hematuria Musculoskeletal: no symptoms reported Skin: No rash, No ulcerations Psychiatric/Neurological: No focal weakness, No syncope Hematologic: No bleeding abnormalities [id number] Hx Patient Social History Marrital Status: Employed/Student: retired Alcohol Use: Denies Use Recreational Drug Use: No Smoking Status: Never a Smoker 2nd Hand Smoke Exposure: No Recent Foreign Travel: No Recent Infectious Disease Expo: No Hospitalization with Isolation: Denies Physical Abuse Screen: No Sexual Abuse: No Immunizations Up To Date Date of Pneumonia Vaccine: Apr 06, 2016 Date of Influenza Vaccine: Apr 06, 2017 Past Medical History PMH As described under Assessment. Family Medical History Family Medical History: No fam h/o early CAD or SCD. Father and brother had PA in their later age Allergies and Home Medications Allergies Coded Allergies: No Known Drug Allergies (Unverified , 08/03/17) Home Medications Albuterol Sulfate 18 Gm Hfa.aer.ad, 2 PUFF INH Q4H PRN for SHORTNESS OF BREATH, (Reported) Amoxicillin/Potassium Clav 1 Each Tablet, 1 TAB PO BID, (Reported) 5 DAY THERAPY FILLED 01-20-18 Aspirin 81 Mg Tab.chew, 81 MG PO HS, (Reported) Atorvastatin Calcium 80 Mg Tablet, 80 MG PO HS, (Reported) Azathioprine 50 Mg Tablet, 50 MG PO DAILY, (Reported) Calcium Carbonate/Vitamin D3 1 Each Tablet, 1 TAB PO 1200,2100, (Reported) Clopidogrel Bisulfate 75 Mg Tablet, 75 MG PO DAILY, (Reported) Furosemide 40 Mg Tablet, 20 MG PO Q48H, (Reported) Levothyroxine Sodium 75 Mcg Tablet, 75 MCG PO DAILY, (Reported) Lorazepam 0.5 Mg Tablet, 0.5 MG PO DAILY, (Reported) Lorazepam 0.5 Mg Tablet, 0.5 MG PO TID PRN for ANXIETY, (Reported) Losartan Potassium 25 Mg Tablet, 12.5 MG PO DAILY, (Reported) TAKES 1/2 (25MG) TABLET Metformin HCl 500 Mg Tablet, 500 MG PO BID WITH MEALS, (Reported) Metoprolol Succinate 25 Mg Tab.er.24h, 25 MG PO DAILY, (Reported) Nystatin 100,000 Unit/1 Ml Oral.susp, 5 ML PO QID, (Reported) Potassium Chloride 10 Meq Tablet.er, 10 MEQ PO Q48H, (Reported) Prednisone 20 Mg Tab, 20 MG PO DAILY, (Reported) Promethazine HCl/Codeine 118 Ml Syrup, 5 ML PO Q6H PRN for COUGH, (Reported) Sennosides/Docusate Sodium 1 Each Tablet, 1 TAB PO HS, (Reported) Sulfamethoxazole/Trimethoprim 1 Each Tablet, 1 TAB PO MoWeFr, (Reported) Venlafaxine HCl 75 Mg Cap.er.24h, 75 MG PO DAILY, (Reported) [Allbee W/ C] , 1 TAB PO 1200,2100, (Reported) Patient Home Medication List Home Medication List Reviewed: Yes Physical Exam-Cardiology Physical Exam Vital Signs/I&O 8/30/18 01/22/18 01/22/18 01/22/18 00:00 00:00 00:40 01:00 Temp 97.0 Pulse 91 89 Resp 20 19 B/P (MAP) 93/62 (72) 92/64 (73) Pulse Ox 96 98 97 O2 Delivery Vapotherm Vapotherm Vapotherm O2 Flow Rate 45.00 25.00 45.00 25.00 25.00 FiO2 45 01/22/18 01/22/18 01/22/18 01/22/18 01:02 01:39 02:00 03:00 Pulse 89 117 106 Resp 21 19 B/P (MAP) 95/69 (78) 99/58 (72) Pulse Ox 96 95 94 O2 Delivery Vapotherm Vapotherm Vapotherm O2 Flow Rate 25.00 45.00 45.00 25.00 25.00 FiO2 45 01/22/18 01/22/18 01/22/18 01/22/18 04:00 04:00 05:00 06:00 Pulse 99 113 110 Resp 18 22 28 B/P (MAP) 92/65 (74) 101/58 (72) 97/67 (77) Pulse Ox 98 95 94 95 O2 Delivery Vapotherm Vapotherm Vapotherm Vapotherm O2 Flow Rate 25.00 45.00 45.00 45.00 25.00 25.00 25.00 FiO2 45 01/22/18 01/22/18 01/22/18 01/22/18 07:00 07:00 07:18 08:00 Pulse 118 120 116 Resp 21 28 B/P (MAP) 101/65 (77) 114/78 (90) Pulse Ox 94 95 96 O2 Delivery Vapotherm Vapotherm Vapotherm O2 Flow Rate 45.00 25.00 45.00 25.00 25.00 FiO2 45 01/22/18 09:00 Pulse 121 Resp 22 B/P (MAP) 96/67 (77) Pulse Ox 95 O2 Delivery Vapotherm O2 Flow Rate 45.00 25.00 01/22/18 00:00 Intake Total 460 ml Output Total 525 ml Balance -65 ml Capillary Refill : Less Than 3 Seconds Constitutional: AAO x 3, other (thin, frail) HEENT: PERRL, hearing is well preserved Neck: No carotid bruit; carotid pulses are 2 + bilaterally Respiratory: chest expansion is symmetric, chest is bilaterally symmetric, crackles (lower lobes bilat, R>L), other (dyspneic with conversation) Cardiovascular: tachycardia, S1 and S2 Gastrointestinal: No tender; soft, audible bowel sounds Rectal: deferred Extremities: no lower extremity edema bilateral Neurologic/Psychiatric: grossly intact Skin: No rash, No ulcerations Data Review Labs Laboratory Tests 01/21/18 18:00: White Blood Count 6.7, Red Blood Count 4.07L, Hemoglobin 13.0, Hematocrit 38, Mean Corpuscular Volume 93, Mean Corpuscular Hemoglobin 32, Mean Corpuscular Hemoglobin Concent 34, Red Cell Distribution Width 17.6H, Platelet Count 279, Mean Platelet Volume 9.9, Neutrophils (%) (Auto) 89H, Lymphocytes (%) (Auto) 8L , Monocytes (%) (Auto) 4, Eosinophils (%) (Auto) 0, Basophils (%) (Auto) 0, Neutrophils # (Auto) 5.9, Lymphocytes # (Auto) 0.5L, Monocytes # (Auto) 0.3, Eosinophils # (Auto) 0.0, Basophils # (Auto) 0.0, Neutrophils % (Manual) 75, Lymphocytes % (Manual) 9, Monocytes % (Manual) 3, Eosinophils % (Manual) 0, Basophils % (Manual) 0, Band Neutrophils 13, Blood Morphology Comment NORMAL, Prothrombin Time 13.8, INR Comment 1.1, Activated Partial Thromboplast Time 22L , Sodium Level 131L, Potassium Level 4.6, Chloride Level 93L, Carbon Dioxide Level 30, Anion Gap 8, Blood Urea Nitrogen 14, Creatinine 0.57L, Estimat Glomerular Filtration Rate > 60, BUN/Creatinine Ratio 25, Glucose Level 212H, Calcium Level 9.3, Corrected Calcium 9.6, Magnesium Level 2.1, Total Bilirubin 0.7, Aspartate Amino Transf (AST/SGOT) 58H, Alanine Aminotransferase (ALT/SGPT) 103H, Alkaline Phosphatase 51, Total Creatine Kinase 146, Creatine Kinase MB 4.3 , Troponin I < 0.30, B-Type Natriuretic Peptide 196.7H, Total Protein 6.3L, Albumin 3.6 01/21/18 18:05: Lactic Acid Level 2.21*H 01/21/18 18:30: Blood Gas Puncture Site LEFT RADIAL, Blood Gas Patient Temperature 97.7, Arterial Blood pH 7.45H, Arterial Blood Partial Pressure CO2 45, Arterial Blood Partial Pressure O2 91, Arterial Blood HCO3 31H, Arterial Blood Total CO2 32.4H , Arterial Blood Oxygen Saturation 99, Arterial Blood Base Excess 6.8H, Corey Test POSITIVE, Blood Gas Ventilator Setting NO, Blood Gas Inspired Oxygen 45% 01/21/18 18:45: Urine Color YELLOW, Urine Clarity VERY CLOUDYH, Urine pH 8, Urine Specific [place] 1.015L, Urine Protein 1+H, Urine Glucose (UA) NEGATIVE, Urine Ketones NEGATIVE, Urine Nitrite NEGATIVE, Urine Bilirubin NEGATIVE, Urine Urobilinogen NORMAL, Urine Leukocyte Esterase 3+H, Urine RBC (Auto) 3+H, Urine RBC 5-10H, Urine WBC 50-100H, Urine Squamous Epithelial Cells RARE, Urine Renal Epithelial Cells 0-2, Urine Crystals PRESENTH, Urine Amorphous Sediment FEW NISSA PHOSPHATEH , Urine Bacteria FEWH, Urine Casts NONE, Urine Mucus NEGATIVE, Urine Culture Indicated YES 01/21/18 20:35: Lactic Acid Level 1.37 01/21/18 23:10: Glucometer 171H 01/22/18 02:55: White Blood Count 5.1, Red Blood Count 3.61L, Hemoglobin 11.6, Hematocrit 34L, Mean Corpuscular Volume 93, Mean Corpuscular Hemoglobin 32, Mean Corpuscular Hemoglobin Concent 35, Red Cell Distribution Width 17.5H, Platelet Count 245, Mean Platelet Volume 10.0, Neutrophils (%) (Auto) 92H, Lymphocytes (%) (Auto) 6L , Monocytes (%) (Auto) 2, Eosinophils (%) (Auto) 0, Basophils (%) (Auto) 0, Neutrophils # (Auto) 4.7, Lymphocytes # (Auto) 0.3L, Monocytes # (Auto) 0.1, Eosinophils # (Auto) 0.0, Basophils # (Auto) 0.0, Sodium Level 134L, Potassium Level 3.8, Chloride Level 93L, Carbon Dioxide Level 28, Anion Gap 13, Blood Urea Nitrogen 15, Creatinine 0.51L, Estimat Glomerular Filtration Rate > 60, BUN /Creatinine Ratio 29, Glucose Level 172H, Calcium Level 9.0, Corrected Calcium 9.4, Total Bilirubin 0.6, Aspartate Amino Transf (AST/SGOT) 48H, Alanine Aminotransferase (ALT/SGPT) 93H, Alkaline Phosphatase 46, Total Protein 6.0L, Albumin 3.5, Thyroid Stimulating Hormone (TSH) 0.60 Laboratory Tests 01/21/18 18:00 01/22/18 02:55 A/P-Cardiology Assessment/Admission Diagnosis Ac on chronic resp failure, multifactorial (see below) Ac on chronic diastolic CHF - decompensation probably due to steroid therapy for ILD Interstitial lung disease: follows with Dr. Stoll of Pulmonary Services at [facility] and Dr Quan of Pulm Svce at [facility] UTI with sepsis - management per medical services Sinus tach, likely related to acute illness H/o black mold exposure in her home Coronary artery disease, status post cardiac catheterization done by Dr. Pinon on 08/04/17 (for ac IMI and RV infarct): Mid vessel occlusion of the right coronary artery treated with overlapping stents (Alpine Xience 2.75 x 28 mm the distal part of which extends slightly into the right ventricular branch) and Alpine Xience 2.75 x 12 mm stent that was placed through the expanded struts of the previous stent and overlaps the previous stent to some degree. There is no significant residual stenosis in the right coronary artery and the flow was normal, but right ventricular branch was lost during the procedure due to infarct-related thrombus. A 90% to 95% stenosis of the proximal left circumflex artery, which was treated with stenting with Alpine Xience 2.25 x 12 mm stent with reduction of stenosis to 0% residual. The left anterior descending artery has diffuse [id number] disease H/o chronically low blood pressure Echo of 11/01/17: LVEF 50-55%, grade I rouse dysfunction, no significant pericard eff or valvular heart disease, PASP 25-30 mmHg Well preserved global left ventricular systolic function with ejection fraction 60%, postero-basal hypokinesis, no significant mitral regurgitation and mild elevation of left ventricular end-diastolic pressure on LHC of 08/04/17 TSH 0.26 on lab of 08-05-17, but normal (0.6) on lab work of 01/22/18 Elevated ESR, followed and treated by Pulm and Med S[facility] Chronic liver enzyme elevation - followed by PCP Chronic hyponatremia - managed by PCP Discussion and Recomendations * Complex management due to multiple comorbidities * Urine output has dropped, likely due to overdiuresis * Gentle hydration * Monitor labs * Management of advanced ILD is with the Pulm and Med S[facility]ces * detention prognosis is guarded Clinical Quality Measures DVT/VTE Risk/Contraindication: Risk Factor Score Per Nursin RFS Level Per Nursing on Admit: 4+=Very High Contraindications-Pharm: Other *list below* LIZY PINON MD FACP FAC CCDS Jan 22, 2018 11:09
[2018-01-22] MEDS: NS IV 1000 ML 1,000 ML IV SCH (12:38)
[2018-01-22] MEDS: PIPERACILLIN/TAZO 4.5 GM/NS 100 ML IV SCH ×2 (15:54)
[2018-01-23] VITALS (7 sets, daily range): BP systolic 95–146; BP diastolic 58–81
[2018-01-23] MEDS: PIPERACILLIN/TAZO 4.5 GM/NS 100 ML IV SCH ×6 (00:11→17:28)
[2018-01-23] MEDS: RT-ALBUTEROL/IPRATROPIUM 3 ML (DUONEB) VIAL INH SCH ×6 (02:28→22:40)
[2018-01-23 03:33] LABS: BASOPHILS % (AUTO) 0 % (0-10); EOSINOPHILS % (AUTO) 0 % (0-10); HEMATOCRIT 28 % (35-52); HEMOGLOBIN 9.4 G/DL (11.5-16.0); LYMPHOCYTES # (AUTO) 0.2 X 10^3 (1.0-4.0); LYMPHOCYTES % (AUTO) 2 % (12-44); MEAN CORPUSCULAR HEMOGLOBIN 32 PG (25-34); MEAN CORPUSCULAR HGB CONC 34 G/DL (32-36); MEAN CORPUSCULAR VOLUME 94 FL (80-99); MEAN PLATELET VOLUME 9.4 FL (7.4-10.4); MONOCYTES # (AUTO) 0.8 X 10^3 (0.0-1.0); MONOCYTES % (AUTO) 8 % (0-12); NEUTROPHILS # (AUTO) 8.4 X 10^3 (1.8-7.8); NEUTROPHILS % (AUTO) 90 % (42-75); PLATELET COUNT 219 10^3/uL (130-400); RED BLOOD COUNT 2.94 10^6/uL (4.35-5.85); RED CELL DISTRIBUTION WIDTH 17.8 % (10.0-14.5); WHITE BLOOD COUNT 9.4 10^3/uL (4.3-11.0)
[2018-01-23 03:59] LABS: ALANINE AMINOTRANSFERASE 75 U/L (0-55); ALKALINE PHOSPHATASE 41 U/L (40-136); BILIRUBIN,TOTAL 0.3 MG/DL (0.1-1.0); BUN/CREATININE RATIO 36; CALCIUM 8.7 MG/DL (8.5-10.1); CARBON DIOXIDE 29 MMOL/L (21-32); CHLORIDE 94 MMOL/L (98-107); GFR ESTIMATED > 60; GLUCOSE 217 MG/DL (70-105); MAGNESIUM 1.9 MG/DL (1.8-2.4); POTASSIUM 3.4 MMOL/L (3.6-5.0); SODIUM 133 MMOL/L (135-145); TOTAL PROTEIN 4.9 GM/DL (6.4-8.2)
[2018-01-23 04:21] LABS: LYMPHOCYTES % (MANUAL) 1 %; MONOCYTES % (MANUAL) 10 %; NEUTROPHILS % (MANUAL) 89 %
[2018-01-23 04:22] LABS: ANISOCYTOSIS SLIGHT; POIKILOCYTOSIS SLIGHT
[2018-01-23] MEDS: CATHETER FLUSH 10 ML SYR IV SCH ×3 (05:22→21:03)
--- NOTE | 2018-01-23 06:25 | Pulmonary Progress Note ---
Subjective Time Seen by Provider: 06:20 Subjective/Events-last exam Pt feels better today. Sepsis Event Evaluation Height, Weight, BMI Height: 5'6.00" Weight: 100lbs. 4.0oz. 45.461439bc; 16.0 BMI Method:Stated Focused Exam Lactate Level 01/21/18 18:05: Lactic Acid Level 2.21*H 01/21/18 20:35: Lactic Acid Level 1.37 Exam Exam Vital Signs Date Time Temp Pulse Resp B/P (MAP) Pulse Ox O2 Delivery O2 Flow Rate FiO2 01/23/18 04:00 96 23 95/58 (70) 98 Vapotherm 45.00 11.00 01/23/18 02:28 97 Vapotherm 13.00 45 01/23/18 01:00 108 01/23/18 00:13 98.4 01/23/18 00:00 108 34 114/65 (81) 95 Vapotherm 45.00 13.00 01/22/18 23:00 121 17 98/62 (74) 95 Vapotherm 45.00 13.00 01/22/18 22:00 121 29 104/61 (75) 96 Vapotherm 45.00 13.00 01/22/18 21:15 96 Vapotherm 15.00 45 01/22/18 21:01 98.9 01/22/18 21:00 96 Vapotherm 15.00 40 01/22/18 21:00 111 33 91/57 (68) 94 40.00 15.00 01/22/18 20:00 124 33 111/61 (78) 93 45.00 25.00 01/22/18 19:00 114 01/22/18 19:00 115 37 103/46 (65) 95 45.00 25.00 01/22/18 18:00 115 38 114/62 (79) 92 45.00 25.00 01/22/18 17:00 120 25 106/60 (75) 96 45.00 25.00 01/22/18 16:00 123 19 110/60 (77) 98 45.00 25.00 01/22/18 15:45 98.9 01/22/18 14:59 94 Vapotherm 15.00 45 01/22/18 14:00 116 37 103/57 (72) 96 45.00 25.00 01/22/18 13:45 98.9 01/22/18 13:45 92 Vapotherm 15.00 01/22/18 13:00 123 01/22/18 13:00 120 34 108/60 (76) 94 Vapotherm 45.00 25.00 01/22/18 12:00 125 35 105/58 (74) 91 Vapotherm 45.00 25.00 01/22/18 11:17 92 Vapotherm 15.00 45 01/22/18 11:00 124 29 95/67 (76) 94 Vapotherm 45.00 25.00 01/22/18 10:00 122 30 94/52 (66) 95 Vapotherm 45.00 25.00 01/22/18 09:00 92 Vapotherm 15.00 01/22/18 09:00 121 22 96/67 (77) 95 Vapotherm 45.00 25.00 01/22/18 08:00 116 28 114/78 (90) 96 Vapotherm 45.00 25.00 01/22/18 07:18 95 Vapotherm 25.00 45 01/22/18 07:00 120 01/22/18 07:00 118 21 101/65 (77) 94 Vapotherm 45.00 25.00 I & O 01/23/18 07:00 Intake Total 2309 ml Output Total 475 ml Balance 1834 ml Height & Weight Height: 5'6.00" Weight: 100lbs. 4.0oz. 45.219967mf; 16.0 BMI Method:Stated General Appearance: No Apparent Distress, WD/WN HEENT: Normal ENT Inspection Neck: Full Range of Motion, Normal Inspection Respiratory: No Accessory Muscle Use, No Respiratory Distress, Decreased Breath Sounds Cardiovascular: Regular Rate, Rhythm, No Murmur Capillary Refill: Less Than 3 Seconds Gastrointestinal: normal bowel sounds, non tender, soft, no organomegaly Results Lab Laboratory Tests 01/21/18 18:00 01/22/18 02:55 01/23/18 03:25 Assessment/Plan Assessment/Plan ILD hx of black mold exposure PUlmonary fibrosis acute exacerbation -SOlumedrol - change to prednisone 60mg daily -SVNS -High flow oxygen -Continue zosyn, and azithromycin Thrush -Continue diflucan Acute on chronic lung disease hx of pseudomonus UTI -Change abx to zosyn Hypokalemia -replace Debility -PT/OT -Up to chair BID Sinus tach -monitor, JUANA WILLS DO Jan 23, 2018 06:25
[2018-01-23] MEDS: inSUlin ASPART (NovoLOG) 1 UNIT/0.01 ML (CHARGE PER UNIT) SC SCH ×4 (06:26→21:03)
[2018-01-23] MEDS: NS IV 1000 ML 1,000 ML IV SCH (06:27)
[2018-01-23] MEDS ORDERED: KCL 10 MEQ TAB (MICRO K) PO NR (06:30)
--- NOTE | 2018-01-23 07:24 | Progress Note (SOAP) ---
Subjective Time Seen by Provider: 07:15 Subjective/Events-last exam Patient feeling better today. Patient ate well yesterday. Patient at home does not eat much. Patient states she's breathing better. Patient does desaturated a little when she moves Focused Exam Lactate Level 01/21/18 18:05: Lactic Acid Level 2.21*H 01/21/18 20:35: Lactic Acid Level 1.37 Objective Exam Vital Signs Date Time Temp Pulse Resp B/P (MAP) Pulse Ox O2 Delivery O2 Flow Rate FiO2 01/23/18 06:51 96 Vapotherm 11.00 45 01/23/18 04:00 96 23 95/58 (70) 98 Vapotherm 45.00 11.00 01/23/18 02:28 97 Vapotherm 13.00 45 01/23/18 01:00 108 01/23/18 00:13 98.4 01/23/18 00:00 108 34 114/65 (81) 95 Vapotherm 45.00 13.00 01/22/18 23:00 121 17 98/62 (74) 95 Vapotherm 45.00 13.00 01/22/18 22:00 121 29 104/61 (75) 96 Vapotherm 45.00 13.00 01/22/18 21:15 96 Vapotherm 15.00 45 01/22/18 21:01 98.9 01/22/18 21:00 96 Vapotherm 15.00 40 01/22/18 21:00 111 33 91/57 (68) 94 40.00 15.00 01/22/18 20:00 124 33 111/61 (78) 93 45.00 25.00 01/22/18 19:00 114 01/22/18 19:00 115 37 103/46 (65) 95 45.00 25.00 01/22/18 18:00 115 38 114/62 (79) 92 45.00 25.00 01/22/18 17:00 120 25 106/60 (75) 96 45.00 25.00 01/22/18 16:00 123 19 110/60 (77) 98 45.00 25.00 01/22/18 15:45 98.9 01/22/18 14:59 94 Vapotherm 15.00 45 01/22/18 14:00 116 37 103/57 (72) 96 45.00 25.00 8/30/18 13:45 98.9 01/22/18 13:45 92 Vapotherm 15.00 01/22/18 13:00 123 01/22/18 13:00 120 34 108/60 (76) 94 Vapotherm 45.00 25.00 01/22/18 12:00 125 35 105/58 (74) 91 Vapotherm 45.00 25.00 01/22/18 11:17 92 Vapotherm 15.00 45 01/22/18 11:00 124 29 95/67 (76) 94 Vapotherm 45.00 25.00 01/22/18 10:00 122 30 94/52 (66) 95 Vapotherm 45.00 25.00 01/22/18 09:00 92 Vapotherm 15.00 01/22/18 09:00 121 22 96/67 (77) 95 Vapotherm 45.00 25.00 01/22/18 08:00 116 28 114/78 (90) 96 Vapotherm 45.00 25.00 I & O 01/23/18 07:00 Intake Total 2509 ml Output Total 705 ml Balance 1804 ml Capillary Refill : Less Than 3 SecondsLess Than 3 Seconds General Appearance: No Apparent Distress, WD/WN HEENT: Normal ENT Inspection Neck: Normal Inspection Respiratory: No Accessory Muscle Use, No Respiratory Distress, Decreased Breath Sounds Cardiovascular: Regular Rate, Rhythm, No Murmur Gastrointestinal: non tender, soft Results Lab Laboratory Tests 01/23/18 03:25 Laboratory Tests 01/22/18 11:31: Glucometer 254H 01/22/18 15:47: Glucometer 277H 01/22/18 21:00: Glucometer 304H 01/23/18 03:25: White Blood Count 9.4, Red Blood Count 2.94L, Hemoglobin 9.4L, Hematocrit 28L, Mean Corpuscular Volume 94, Mean Corpuscular Hemoglobin 32, Mean Corpuscular Hemoglobin Concent 34, Red Cell Distribution Width 17.8H, Platelet Count 219, Mean Platelet Volume 9.4, Neutrophils (%) (Auto) 90H, Lymphocytes (%) (Auto) 2L , Monocytes (%) (Auto) 8, Eosinophils (%) (Auto) 0, Basophils (%) (Auto) 0, Neutrophils # (Auto) 8.4H, Lymphocytes # (Auto) 0.2L, Monocytes # (Auto) 0.8, Eosinophils # (Auto) 0.0, Basophils # (Auto) 0.0, Neutrophils % (Manual) 89, Lymphocytes % (Manual) 1, Monocytes % (Manual) 10, Poikilocytosis SLIGHT, Basophilic Stippling SLIGHT, Anisocytosis SLIGHT, Sodium Level 133L, Potassium Level 3.4L, Chloride Level 94L, Carbon Dioxide Level 29, Anion Gap 10, Blood Urea Nitrogen 18, Creatinine 0.50L, Estimat Glomerular Filtration Rate > 60, BUN /Creatinine Ratio 36, Glucose Level 217H, Calcium Level 8.7, Corrected Calcium 9.5, Phosphorus Level 1.4L, Magnesium Level 1.9, Total Bilirubin 0.3, Aspartate Amino Transf (AST/SGOT) 37H, Alanine Aminotransferase (ALT/SGPT) 75H, Alkaline Phosphatase 41, B-Type Natriuretic Peptide 156.4H, Total Protein 4.9L, Albumin 3.0L Microbiology 01/21/18 Urine Culture - Preliminary, Resulted Sent To [facility] Results To Follow Assessment/Plan Assessment/Plan Assess & Plan/Chief Complaint Interstitial lung disease. Pulmonary fibrosis. Thrush. History of pseudomonas UTI. Hypokalemia. Hypotension. Patient stable in her unstable way Clinical Quality Measures Admission Status Admission Dx Respiratory distress. interstitial lung disease. chronic hypoxia. UTI. History of [place]. Exposure to mold. Hypotension DVT/VTE Risk/Contraindication: Risk Factor Score Per Nursin RFS Level Per Nursing on Admit: 4+=Very High Contraindications-Pharm: Other *list below* ABRAM BRITT DO Jan 23, 2018 07:24
[2018-01-23] MEDS ORDERED: SODIUM PHOSPHATE INJ 30 MM in NS (IVPB) 250 ML IV NR (07:53)
[2018-01-23] MEDS: predniSONE 20 MG TAB PO SCH (08:19)
[2018-01-23] MEDS: CLOPIDOGREL 75 MG (PLAVIX) TABLET PO SCH (08:19)
[2018-01-23] MEDS: ASPIRIN 81 MG CHEW (CHILDREN'S ASA) PO SCH (08:20)
[2018-01-23] MEDS: fluCOnazole (DIFLUCAN) 100 MG TAB PO SCH (08:20)
--- NOTE | 2018-01-23 08:24 | Diagnostic Imaging Report ---
INDICATION: History of interstitial lung disease. Shortness of air. COMPARISON: 08/04/2017. FINDINGS: Single frontal radiographic view of the chest was obtained and demonstrates stable cardiac silhouette and pulmonary vasculature. Lungs continue to show diffuse coarse interstitial opacities, stable compared to prior exam. There is no new focal alveolar consolidation, large effusion, nor pneumothorax. Bony structures show no gross acute abnormalities. IMPRESSION: 1. Stable exam of the chest showing diffuse interstitial prominence. Findings may relate to clinical history of interstitial lung disease. Interstitial pneumonia or edema would also be considered in the differential. Dictated by: Dictated on workstation # [id number]
--- NOTE | 2018-01-23 08:37 | Progress Note-Cardiology ---
Cardiology SOAP Progress Note Subjective: Sitting up in bed. Feels breathing is somewhat better today. No c/o CP or palpitations. Occ cough. Objective: I&O/Vital Signs 01/23/18 01/23/18 01/23/18 01/23/18 06:51 07:00 08:00 08:20 Pulse 100 95 Resp 14 B/P (MAP) 109/60 (76) Pulse Ox 96 91 100 O2 Delivery Vapotherm High Flow N/C High Flow N/C O2 Flow Rate 11.00 10.00 10.00 FiO2 45 01/23/18 01/23/18 01/23/18 01/23/18 08:20 10:22 11:28 11:46 Temp 96.9 99.2 Pulse 101 Resp 30 B/P (MAP) 121/75 (90) Pulse Ox 100 100 O2 Delivery High Flow N/C High Flow N/C Nasal Cannula High Flow N/C O2 Flow Rate 10.00 8.00 8.00 8.00 01/23/18 01/23/18 13:00 15:15 Pulse 105 Pulse Ox 100 O2 Delivery Nasal Cannula O2 Flow Rate 10.00 01/23/18 00:00 Intake Total 1809 ml Output Total 475 ml Balance 1334 ml Weight (Pounds): 104 Weight (Ounces): 2.0 Weight (Calculated Kilograms): 47.393019 Constitutional: AAO x 3, other (thin, frail) Respiratory: chest expansion is symmetric, chest is bilaterally symmetric, crackles (lower lobes bilat, R>L), other (dyspneic with conversation) Cardiovascular: tachycardia, S1 and S2 Gastrointestional: No tender; soft, audible bowel sounds Genital/Rectal: other (Urinary catheter to DD; clear, yellow urine) Extremities: no lower extremity edema bilateral Neurologic/Psychiatric: grossly intact Skin: No rash, No ulcerations Results/Procedures: Labs Laboratory Tests 01/22/18 21:00: Glucometer 304H 01/23/18 03:25: White Blood Count 9.4, Red Blood Count 2.94L, Hemoglobin 9.4L, Hematocrit 28L, Mean Corpuscular Volume 94, Mean Corpuscular Hemoglobin 32, Mean Corpuscular Hemoglobin Concent 34, Red Cell Distribution Width 17.8H, Platelet Count 219, Mean Platelet Volume 9.4, Neutrophils (%) (Auto) 90H, Lymphocytes (%) (Auto) 2L , Monocytes (%) (Auto) 8, Eosinophils (%) (Auto) 0, Basophils (%) (Auto) 0, Neutrophils # (Auto) 8.4H, Lymphocytes # (Auto) 0.2L, Monocytes # (Auto) 0.8, Eosinophils # (Auto) 0.0, Basophils # (Auto) 0.0, Neutrophils % (Manual) 89, Lymphocytes % (Manual) 1, Monocytes % (Manual) 10, Poikilocytosis SLIGHT, Basophilic Stippling SLIGHT, Anisocytosis SLIGHT, Sodium Level 133L, Potassium Level 3.4L, Chloride Level 94L, Carbon Dioxide Level 29, Anion Gap 10, Blood Urea Nitrogen 18, Creatinine 0.50L, Estimat Glomerular Filtration Rate > 60, BUN /Creatinine Ratio 36, Glucose Level 217H, Calcium Level 8.7, Corrected Calcium 9.5, Phosphorus Level 1.4L, Magnesium Level 1.9, Total Bilirubin 0.3, Aspartate Amino Transf (AST/SGOT) 37H, Alanine Aminotransferase (ALT/SGPT) 75H, Alkaline Phosphatase 41, B-Type Natriuretic Peptide 156.4H, Total Protein 4.9L, Albumin 3.0L 01/23/18 11:45: Glucometer 222H Microbiology 01/21/18 Blood Culture - Preliminary, Resulted No growth 01/21/18 Urine Culture - Preliminary, Resulted Pseudomonas aeruginosa Laboratory Tests 01/21/18 18:00 01/22/18 02:55 01/23/18 03:25 Procedures NAME: LEYLA CASTELLANO [facility] REC#: [id number] PT STATUS: ADM IN : 1945 PHYSICIAN: ABRAM BRITT DO ADMIT DATE: 01/21/18/ICU Draft Date of Exam:01/23/18 CHEST 1 VIEW, AP/PA ONLY INDICATION: History of interstitial lung disease. Shortness of air. COMPARISON: 08/04/2017. FINDINGS: Single frontal radiographic view of the chest was obtained and demonstrates stable cardiac silhouette and pulmonary vasculature. Lungs continue to show diffuse coarse interstitial opacities, stable compared to prior exam. There is no new focal alveolar consolidation, large effusion, nor pneumothorax. Bony structures show no gross acute abnormalities. IMPRESSION: 1. Stable exam of the chest showing diffuse interstitial prominence. Findings may relate to clinical history of interstitial lung disease. Interstitial pneumonia or edema would also be considered in the differential. Dictated on workstation # [id number] Dict: 01/23/18814 Trans: 01/23/18822 [facility] [id number] Interpreted by: GURU ROSALES MD Electronically signed by: A/P: Assessment: Ac on chronic resp failure, multifactorial (see below) Ac on chronic diastolic CHF - decompensation probably due to steroid therapy for ILD Interstitial lung disease: follows with Dr. Stoll of Pulmonary Services at [facility] and Dr Quan of Pulm Svce at [facility] UTI with sepsis - management per medical services Sinus tach, likely related to acute illness H/o black mold exposure in her home Coronary artery disease, status post cardiac catheterization done by Dr. Pinon on 08/04/17 (for ac IMI and RV infarct): Mid vessel occlusion of the right coronary artery treated with overlapping stents (Alpine Xience 2.75 x 28 mm the distal part of which extends slightly into the right ventricular branch) and Alpine Xience 2.75 x 12 mm stent that was placed through the expanded struts of the previous stent and overlaps the previous stent to some degree. There is no significant residual stenosis in the right coronary artery and the flow was normal, but right ventricular branch was lost during the procedure due to infarct-related thrombus. A 90% to 95% stenosis of the proximal left circumflex artery, which was treated with stenting with Alpine Xience 2.25 x 12 mm stent with reduction of stenosis to 0% residual. The left anterior descending artery has diffuse [id number] disease H/o chronically low blood pressure Echo of 11/01/17: LVEF 50-55%, grade I rouse dysfunction, no significant pericard eff or valvular heart disease, PASP 25-30 mmHg Well preserved global left ventricular systolic function with ejection fraction 60%, postero-basal hypokinesis, no significant mitral regurgitation and mild elevation of left ventricular end-diastolic pressure on LHC of 08/04/17 TSH 0.26 on lab of 08-05-17, but normal (0.6) on lab work of 01/22/18 Elevated ESR, followed and treated by [facility]m and Med S[facility] Chronic liver enzyme elevation - followed by PCP Chronic hyponatremia - managed by PCP Plan: * Complex management due to multiple comorbidities * Urine output has improved with gentle hydration * UTI - management per medical services * IV fluids stopped per pulmonary services * Monitor labs * Replace potassium * HR has improved * Management of advanced ILD is with the Pulm and Med S[facility] * 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 Denies cp or palp or syncope or leg swelling Lungs: coarse basal crackles Cor: reg Ext: no c/c/e A&R * As documented in our note above that I updated * Continue current regimen * Replenish K * Monitor labs * I spoke with her and her and answered questions ABHISHEK BANDA GRAIN SAMPLER Jan 23, 2018 08:37 LIZY PINON MD [facility] Jan 23, 2018 17:10
[2018-01-23] MEDS ORDERED: KCL 20 MEQ TAB (K-DUR) PO ONE (08:45)
--- NOTE | 2018-01-23 11:56 | Physical Therapy Evaluation ---
PT Evaluation-General Medical Diagnosis Admission Date Jan 21, 2018 at 19:11 Medical Diagnosis: respiratory distress Onset Date: Jan 21, 2018 Therapy Diagnosis Therapy Diagnosis: generalized weakness/debility Height/Weight Height (Feet): 5 Height (Inches): 6.00 Weight (Pounds): 104 Weight (Ounces): 2.0 Precautions Precautions/Isolations: Fall Prevention, Standard Precautions Weight Bear Status Right Lower Extremity: Right Full Weight Bearing Left Lower Extremity: Left Full Weight Bearing Referral Physician: Avelina Reason for Referral: Evaluation/Treatment Medical History Pertinent Medical History: Atrial Fib, CAD, Heart Failure, HTN, Hypothroidism, [place] Current History ER secondary to SOA Reviewed History: Yes Social History Home: Single Level Current Living Status: Spouse Prior/Core FIM Prior Level of Function Functional [place] Measure 0=Not Assessed/NA 4=Minimal Assistance 1=Total Assistance 5=Supervision or Setup 2=Maximal Assistance 6=Modified [place] 3=Moderate Assistance 7=Complete [place] Bed Mobility: 6 Transfers (B,C,W/C) (FIM): 6 Gait: 1 ambulates short distances only due to severely diminished pulmonary function/on O2 4L NC at home and increase it to 15L with activity PT Evaluation-Current Subjective Patient agrees to PT. Pain Numeric Pain Scale: 0-No Pain Location: No Pain Reported Objective Patient Orientation: Normal For Age Problem Solving: Fair Attachments: Oxygen, Tsang Catheter, IV ROM/Strength ROM Lower Extremities bilateral LE WNL Strength Lower Extremities 3/5 grossly bilateral LE Integumentary/Posture Integumentary refer to nursing notes Bowel Incontinence: No Bladder Incontinence: No Posture WFL Neuromuscular (Tone, Coordination, Reflexes) slightly diminished due to inactivity Sensory Vision: Wears Glasses Hearing: Functional Sensation Right Lower Extremit: Intact Sensation Left Lower Extremity: Intact Transfers Functional [place] Measure 0=Not Assessed/NA 4=Minimal Assistance 1=Total Assistance 5=Supervision or Setup 2=Maximal Assistance 6=Modified [place] 3=Moderate Assistance 7=Complete [place] Transfers (B, C, W/C) (FIM): 3 Scootin Rollin Supine to/from Sit: 5 Sit to/from Stand: 3 mod assist due to weakness Balance Sitting Static: Normal Sitting Dynamic: Normal Standing Static: Fair Standing Dynamic: Fair Assessment/Needs 72 y.o. female, will benefit from skilled PT to address functional strength and mobility to improve current LOF to safely return to home with spouse. Patient does self limit due to SOA/anxiety. 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 Jail Goals PT Jail Goals Time Frame: Feb 07, 2018 Transfers (B,C,W/C) (FIM): 6 Gait (FIM): 2 Gait distance (FIM): 6=917-01 ft Distance: 125' Gait Level of Assist: 5 Gait Assistive Device: FWW PT Plan Problem List Problem List: Activity Tolerance, Functional Strength, Safety, Balance, Gait, Transfer, Bed Mobility Treatment/Plan Treatment Plan: Continue Plan of Care Treatment Plan: Bed Mobility, Education, Functional Activity Herb, Functional Strength, Gait, Safety, Therapeutic Exercise, Transfers Treatment Duration: Feb 07, 2018 Frequency: 6 times per week Estimated Hrs Per Day: .5 hour per day Patient and/or Family Agrees t: Yes Time/GCodes Time In: 1050 Time Out: 1107 Total Billed Treatment Time: 17 Total Billed Treatment 1 visit EVHighC 17 min G Codes Necessary: No SOFIE SIMMONS PT Jan 23, 2018 11:56
--- NOTE | 2018-01-23 15:00 | Occupational Therapy Eval ---
OT Evaluation-General/PLF Medical Diagnosis Admission Date Jan 21, 2018 at 19:11 Medical Diagnosis: respiratory distress Onset Date: Jan 21, 2018 Therapy Diagnosis Therapy Diagnosis: decreased activity tolerance, impaired self care skills Height/Weight Height (Feet): 5 Height (Inches): 6.00 Weight (Pounds): 104 Weight (Ounces): 2.0 Precautions Precautions/Isolations: Fall Prevention, Standard Precautions Safety Interventions: None Referral Physician: Avelina Medical History Pertinent Medical History: Atrial Fib, CAD, Heart Failure, HTN, Hypothroidism, [place] Additional Medical History high cholesterol Current History Pt presented to ED with shortness of breath Reviewed History: Yes Social History Home: Single Level Current Living Status: Spouse Steps Into Home: 3 (pt states her family helps her up the steps in her w/c.) ADL-Prior Level of Function ADL PLOF Comments Pt states has minimal activity level. Uses w/c for most mobility and walks only a few steps with assist. Does not shower secondary to shortness of breath, does sponge baths only. DME/Equipment: Bath Chair OT Current Status Subjective Pt in bed, agrees to therapy, states she needs to use the restroom and would like to sit up in chair. Mental Status/Objective Patient Orientation: Person, Place Attachments: Tsang Catheter, IV, Oxygen Current Glasses/Contacts: Yes Hearing Aids: No Dentures/Partials: Yes Hand Dominance: Left Upper Extremity ROM Grossly WFL Upper Extremity Coordination Intact Upper Extremity Strength 4-/5 ADL-Treatment ADL-Current Pt supine to sit with SBA. Pt transferred to BSC with minimal assistance. Pt requires assist for toileting hygiene. Transfer to chair with minimal assistance. Pt fatigues quickly and is short of breath with activity, requiring rest break to recover. Pt sitting in chair with needs met after session, RN aware. Functional [place] Measure 0=Not Assessed/NA 4=Minimal Assistance 1=Total Assistance 5=Supervision or Setup 2=Maximal Assistance 6=Modified [place] 3=Moderate Assistance 7=Complete IndependenceIRFPAI Quality Coding Scale 6 Independent with activity with or without an assistive device 5 Patient requires set up or clean up by helper. Patient completes activity by themselves 4 Supervision or touching assist (CGA). [place] provide cues , steadying assist 3 The helper provides less than half the effort to complete the activity 2 The helper provides more than half the effort to complete the activity 1 Dependent. The helper does all the effort to complete an activity 7 Patient refused to complete or attempt activity 9 The patient did not perform the activity before the current illness or injury 88 Not attempted due to Medical conditions or safety concerns Education OT Patient Education: Rehab process Teaching Recipient: Patient Teaching Methods: Discussion Response to Teaching: Verbalize Understanding OT Short Term Goals Short Term Goals 1=Demonstrate adherence to instructed precautions during ADL tasks. 2=Patient will verbalize/demonstrate understanding of assistive devices/ modifications for ADL. 3=Patient will improve strength/tolerance for activity to enable patient to perform ADL's. OT Software Engineering Analyst Goals Alf Goals Time Frame: Feb 06, 2018 Grooming(FIM): 5 Upper Body Dressing(FIM): 5 Lower Body Dressing(FIM): 4 Additional Goals: 2-Verbalize Understanding, 3-ImproveStrength/Herb 1=Demonstrate adherence to instructed precautions during ADL tasks. 2=Patient will verbalize/demonstrate understanding of assistive devices/ modifications for ADL. 3=Patient will improve strength/tolerance for activity to enable patient to perform ADL's. OT Education/Plan Discharge Recommendations Plan/Recommendations: Continue POC Treatment Plan/Plan of Care Treatment,Training & Education: Yes Patient would benefit from OT for education, treatment and training to promote independence in ADL's, mobility, safety and/or upper extremity function for ADL' s. Plan of Care: ADL Retraining, Functional Mobility, UE Funct Exercise/Act Treatment Duration: Feb 06, 2018 Frequency: 5 times per week Estimated Hrs Per Day: .25 hour per day Rehab Potential: Fair Time/GCodes Start Time: 14:01 Stop Time: 14:22 Total Time Billed (hr/min): 21 Billed Treatment Time 1 visit, WESLEY(21minutes) TRICIA VARGAS OT Jan 23, 2018 15:00
[2018-01-24] MEDS: PIPERACILLIN/TAZO 4.5 GM/NS 100 ML IV SCH ×4 (00:13→08:07)
[2018-01-24] MEDS: RT-ALBUTEROL/IPRATROPIUM 3 ML (DUONEB) VIAL INH SCH ×6 (02:53→22:41)
[2018-01-24 03:43] LABS: BASOPHILS % (AUTO) 0 % (0-10); EOSINOPHILS % (AUTO) 0 % (0-10); HEMATOCRIT 28 % (35-52); HEMOGLOBIN 9.4 G/DL (11.5-16.0); LYMPHOCYTES # (AUTO) 0.4 X 10^3 (1.0-4.0); LYMPHOCYTES % (AUTO) 5 % (12-44); MEAN CORPUSCULAR HEMOGLOBIN 32 PG (25-34); MEAN CORPUSCULAR HGB CONC 34 G/DL (32-36); MEAN CORPUSCULAR VOLUME 95 FL (80-99); MEAN PLATELET VOLUME 9.8 FL (7.4-10.4); MONOCYTES # (AUTO) 0.7 X 10^3 (0.0-1.0); MONOCYTES % (AUTO) 10 % (0-12); NEUTROPHILS # (AUTO) 6.2 X 10^3 (1.8-7.8); NEUTROPHILS % (AUTO) 85 % (42-75); PLATELET COUNT 199 10^3/uL (130-400); RED CELL DISTRIBUTION WIDTH 18.6 % (10.0-14.5); WHITE BLOOD COUNT 7.3 10^3/uL (4.3-11.0)
[2018-01-24 04:20] VITALS: BP 125/76
[2018-01-24 04:20] LABS: BUN/CREATININE RATIO 51; CALCIUM 8.7 MG/DL (8.5-10.1); CARBON DIOXIDE 25 MMOL/L (21-32); CHLORIDE 100 MMOL/L (98-107); CREATININE SERUM 0.43 MG/DL (0.60-1.30); GFR ESTIMATED > 60; GLUCOSE 130 MG/DL (70-105); POTASSIUM 4.2 MMOL/L (3.6-5.0); SODIUM 137 MMOL/L (135-145)
[2018-01-24] MEDS: inSUlin ASPART (NovoLOG) 1 UNIT/0.01 ML (CHARGE PER UNIT) SC SCH ×4 (04:35→21:40)
[2018-01-24] MEDS: CATHETER FLUSH 10 ML SYR IV SCH ×3 (06:14→21:41)
--- NOTE | 2018-01-24 06:31 | Pulmonary Progress Note ---
Subjective Time Seen by Provider: 06:31 Subjective/Events-last exam Pt appears to be doing better. Will transfer to 4th floor Sepsis Event Evaluation Height, Weight, BMI Height: 5'6.00" Weight: 103lbs. 9.0oz. 46.388784il; 16.0 BMI Method:Stated Focused Exam Lactate Level 01/21/18 18:05: Lactic Acid Level 2.21*H 01/21/18 20:35: Lactic Acid Level 1.37 Exam Exam Vital Signs Date Time Temp Pulse Resp B/P (MAP) Pulse Ox O2 Delivery O2 Flow Rate FiO2 01/24/18 04:20 98.3 88 16 125/76 (92) 100 High Flow N/C 5.00 01/24/18 03:00 High Flow N/C 5.00 01/24/18 02:54 100 High Flow N/C 6.00 01/24/18 01:00 101 01/23/18 23:10 98.0 112 26 146/81 (102) 98 High Flow N/C 6.00 01/23/18 22:41 100 High Flow N/C 8.00 01/23/18 20:45 100 High Flow N/C 8.00 01/23/18 19:45 98.5 109 24 117/73 (88) 100 High Flow N/C 8.00 01/23/18 19:27 100 High Flow N/C 8.00 01/23/18 19:00 105 01/23/18 17:28 98.7 108 27 129/63 (85) 100 High Flow N/C 10.00 01/23/18 15:15 100 Nasal Cannula 10.00 01/23/18 13:00 105 01/23/18 11:46 99.2 101 30 121/75 (90) 100 High Flow N/C 8.00 01/23/18 11:28 100 Nasal Cannula 8.00 01/23/18 10:22 High Flow N/C 8.00 01/23/18 08:20 96.9 High Flow N/C 10.00 01/23/18 08:20 100 High Flow N/C 10.00 01/23/18 08:00 95 14 109/60 (76) 91 High Flow N/C 10.00 01/23/18 07:00 100 01/23/18 06:51 96 Vapotherm 11.00 45 I & O 01/24/18 07:00 Intake Total 2350 ml Output Total 720 ml Balance 1630 ml Height & Weight Height: 5'6.00" Weight: 103lbs. 9.0oz. 46.477403yi; 16.0 BMI Method:Stated General Appearance: No Apparent Distress, Anxious, Thin HEENT: PERRL/EOMI, Normal ENT Inspection, Pharynx Normal Neck: Normal Inspection, Non Tender, Supple Respiratory: Accessory Muscle Use, Crackles, Decreased Breath Sounds, Respiratory Distress Cardiovascular: Regular Rate, Rhythm, No Edema, No Gallop Capillary Refill: Less Than 3 Seconds Gastrointestinal: normal bowel sounds, non tender, soft, no organomegaly Extremity: Normal Capillary Refill, Normal Inspection Neurologic/Psychiatric: Alert Skin: Normal Color, Warm/Dry Lymphatic: No Adenopathy Results Lab Laboratory Tests 01/23/18 03:25 01/24/18 03:25 Assessment/Plan Assessment/Plan ILD hx of black mold exposure PUlmonary fibrosis acute exacerbation -SOlumedrol - change to prednisone 60mg daily -SVNS -High flow oxygen -Continue zosyn, and azithromycin Thrush -Continue diflucan Acute on chronic lung disease hx of pseudomonus UTI -Change abx to zosyn Debility -PT/OT -Up to chair BID Sinus tach -monitor, Pt appears to be doing better. Will transfer to 4th floor with tele and continue to monitor close JUANA WILLS DO Jan 24, 2018 06:31
[2018-01-24 07:55] VITALS: BP 109/55
[2018-01-24] MEDS: fluCOnazole (DIFLUCAN) 100 MG TAB PO SCH (08:07)
[2018-01-24] MEDS: CLOPIDOGREL 75 MG (PLAVIX) TABLET PO SCH (08:07)
[2018-01-24] MEDS: predniSONE 20 MG TAB PO SCH (08:08)
[2018-01-24] MEDS: ASPIRIN 81 MG CHEW (CHILDREN'S ASA) PO SCH (08:08)
--- NOTE | 2018-01-24 10:42 | Physical Therapy Daily Note ---
PT Daily Note-Current Subjective Pt agreeable and says she is better today than yesterday. Pt denies pain. Pt requests commode. Transfers Functional [place] Measure 0=Not Assessed/NA 4=Minimal Assistance 1=Total Assistance 5=Supervision or Setup 2=Maximal Assistance 6=Modified [place] 3=Moderate Assistance 7=Complete IndependenceIRFPAI Quality Coding Scale 6 Independent with activity with or without an assistive device 5 Patient requires set up or clean up by helper. Patient completes activity by themselves 4 Supervision or touching assist (CGA). [place] provide cues , steadying assist 3 The helper provides less than half the effort to complete the activity 2 The helper provides more than half the effort to complete the activity 1 Dependent. The helper does all the effort to complete an activity 7 Patient refused to complete or attempt activity 9 The patient did not perform the activity before the current illness or injury 88 Not attempted due to Medical conditions or safety concerns Bed mobility and SPT bed to commode and commode to chair all mod (I) with CGA Weight Bearing Right Lower Extremity: Right Full Weight Bearing Left Lower Extremity: Left Full Weight Bearing Treatments Pt agreeable to up in chair but requested to use commode first. Mobility required CGA. Pt required assist with pericare. O2 per nasal canula, O2 sats dropped to 80% with activity. Pt able to recover with pursed lip breathing to 88%. Pt up in chair with legs elevated and all needs met. Nurse present post therapy. Assessment Poor tolerance to activity. O2 sats drop with any activity. O2 sats recover with pt making effort to breath in through nose. Pt in chair with all needs met and call light in lap. PT Mapper Goals Retirement Goals PT Retirement Goals Time Frame: Feb 07, 2018 Transfers (B,C,W/C) (FIM): 6 Gait (FIM): 2 Gait distance (FIM): 9=335-96 ft Distance: 125' Gait Level of Assist: 5 Gait Assistive Device: FWW PT Plan Treatment/Plan Treatment Plan: Continue Plan of Care Treatment Plan: Bed Mobility, Education, Functional Activity Herb, Functional Strength, Gait, Safety, Therapeutic Exercise, Transfers Treatment Duration: Feb 07, 2018 Frequency: 6 times per week Estimated Hrs Per Day: .5 hour per day Patient and/or Family Agrees t: Yes Time/GCodes Time In: 840 Time Out: 900 Total Billed Treatment Time: 20 Total Billed Treatment 1, FA x 20min DANIEL,TACHO CPTA Jan 24, 2018 10:42
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
[2018-01-24] MEDS ORDERED: RT-ALBUTEROL SULF 2.5 MG/3 ML PRE-MIX VIAL INH PRN (11:15)
[2018-01-24] MEDS ORDERED: LORazepam 0.5 MG (ATIVAN) TABLET PO PRN (11:15)
[2018-01-24] MEDS ORDERED: PROMETHAZINE/ CODEINE SYRUP 5 ML UDC PO PRN (11:45)
[2018-01-24] MEDS: CHOLESTYRAMINE 4 GM (QUESTRAN LITE, PREVALITE) PKT PO SCH ×3 (11:59→21:40)
[2018-01-24] MEDS: FUROSEMIDE 40 MG (LASIX) TAB PO SCH (11:59)
[2018-01-24] MEDS: KCL 10 MEQ TAB (MICRO K) PO SCH (11:59)
[2018-01-24 12:00] VITALS: BP 129/63
[2018-01-24] MEDS: CEFEPIME INJECTION 1,000 MG in NS (IVPB) 50 ML IV SCH ×2 (12:00→21:40)
--- NOTE | 2018-01-24 15:27 | Progress Note-Cardiology ---
Cardiology SOAP Progress Note Subjective: Feels somewhat better compared to time of admission. No cp or palp or syncope. Would like regular food Objective: I&O/Vital Signs 01/24/18 01/24/18 01/24/18 01/24/18 04:20 07:00 07:04 07:55 Temp 98.3 98.0 Pulse 88 83 94 Resp 16 21 B/P (MAP) 125/76 (92) 109/55 (73) Pulse Ox 100 98 88 O2 Delivery High Flow N/C High Flow N/C High Flow N/C O2 Flow Rate 5.00 5.00 4.00 01/24/18 01/24/18 01/24/18 01/24/18 07:56 07:58 08:05 10:42 Pulse Ox 89 90 100 95 O2 Delivery High Flow N/C High Flow N/C High Flow N/C High Flow N/C O2 Flow Rate 5.00 5.00 5.00 5.00 01/24/18 01/24/18 01/24/18 12:00 13:00 14:45 Temp 98.9 Pulse 106 94 Resp 22 B/P (MAP) 129/63 (85) Pulse Ox 92 98 O2 Delivery High Flow N/C High Flow N/C O2 Flow Rate 11.00 4.00 01/24/18 00:00 Intake Total 2000 ml Output Total 345 ml Balance 1655 ml Weight (Pounds): 103 Weight (Ounces): 9.0 Weight (Calculated Kilograms): 46.216715 Constitutional: AAO x 3, other (thin, frail) Respiratory: chest expansion is symmetric, chest is bilaterally symmetric, crackles (lower lobes bilat, R>L), other (dyspneic with conversation) Cardiovascular: tachycardia, S1 and S2 Gastrointestional: No tender; soft, audible bowel sounds Genital/Rectal: other (Urinary catheter to DD; clear, yellow urine) Extremities: no lower extremity edema bilateral Neurologic/Psychiatric: grossly intact Skin: No rash, No ulcerations Results/Procedures: Labs Laboratory Tests 01/23/18 17:13: Glucometer 266H 01/23/18 21:00: Glucometer 275H 01/24/18 03:25: White Blood Count 7.3, Red Blood Count 2.90L, Hemoglobin 9.4L, Hematocrit 28L, Mean Corpuscular Volume 95, Mean Corpuscular Hemoglobin 32, Mean Corpuscular Hemoglobin Concent 34, Red Cell Distribution Width 18.6H, Platelet Count 199, Mean Platelet Volume 9.8, Neutrophils (%) (Auto) 85H, Lymphocytes (%) (Auto) 5L , Monocytes (%) (Auto) 10, Eosinophils (%) (Auto) 0, Basophils (%) (Auto) 0, Neutrophils # (Auto) 6.2, Lymphocytes # (Auto) 0.4L, Monocytes # (Auto) 0.7, Eosinophils # (Auto) 0.0, Basophils # (Auto) 0.0, Sodium Level 137, Potassium Level 4.2, Chloride Level 100, Carbon Dioxide Level 25, Anion Gap 12, Blood Urea Nitrogen 22H, Creatinine 0.43L, Estimat Glomerular Filtration Rate > 60, BUN/Creatinine Ratio 51, Glucose Level 130H, Calcium Level 8.7, Phosphorus Level 3.4, Magnesium Level 2.0 01/24/18 11:27: Glucometer 220H Microbiology 01/21/18 Blood Culture - Preliminary, Resulted No growth 01/21/18 Urine Culture - Final, Complete Pseudomonas aeruginosa Laboratory Tests 01/23/18 03:25 01/24/18 03:25 A/P: Assessment: Ac on chronic resp failure, multifactorial (see below) Ac on chronic diastolic CHF - decompensation probably due to steroid therapy for ILD Interstitial lung disease: follows with Dr. Stoll of Pulmonary Services at [facility] and Dr Quan of Pulm Svce at [facility] UTI with sepsis - management per medical services Sinus tach, likely related to acute illness Low body wgt H/o black mold exposure in her home Coronary artery disease, status post cardiac catheterization done by Dr. 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 There is no significant residual stenosis in the right coronary artery and the flow was normal, but right ventricular branch was lost during the procedure due to infarct-related thrombus. A 90% to 95% stenosis of the proximal left circumflex artery, which was treated with stenting with Alpine Xience 2.25 x 12 mm stent with reduction of stenosis to 0% residual. The left anterior descending artery has diffuse [id number] disease H/o chronically low blood pressure Echo of 11/01/17: LVEF 50-55%, grade I rouse dysfunction, no significant pericard eff or valvular heart disease, PASP 25-30 mmHg Well preserved global left ventricular systolic function with ejection fraction 60%, postero-basal hypokinesis, no significant mitral regurgitation and mild elevation of left ventricular end-diastolic pressure on LHC of 08/04/17 TSH 0.26 on lab of 08-05-17, but normal (0.6) on lab work of 01/22/18 Elevated ESR, followed and treated by [facility] Chronic liver enzyme elevation - followed by PCP Chronic hyponatremia - managed by PCP Plan: * Complex management due to multiple comorbidities * Advised effort at wgt gain. Will change diet to regular * Monitor labs * Management of advanced ILD is with the Pulm and Med S[facility]ces * senior living prognosis is guarded LIZY SCHUMACHER MD FACP FAC CCDS Jan 24, 2018 15:27
[2018-01-24 16:05] VITALS: BP 115/63
[2018-01-24 20:49] VITALS: BP 119/63
[2018-01-24] MEDS ORDERED: ASPIRIN 81 MG CHEW (CHILDREN'S ASA) PO SCH (21:00)
[2018-01-24] MEDS ORDERED: NS (IVPB) 50 ML ONE ×2 (21:21→21:28)
[2018-01-24] MEDS ORDERED: CEFEPIME 1 GM (MAXIPIME) VIAL ONE ×2 (21:21→21:27)
[2018-01-25] VITALS: BP 130/76
[2018-01-25] MEDS: RT-ALBUTEROL/IPRATROPIUM 3 ML (DUONEB) VIAL INH SCH ×6 (02:35→22:43)
[2018-01-25 04:00] VITALS: BP 125/71
[2018-01-25] MEDS: inSUlin ASPART (NovoLOG) 1 UNIT/0.01 ML (CHARGE PER UNIT) SC SCH ×4 (06:12→20:44)
[2018-01-25] MEDS: CHOLESTYRAMINE 4 GM (QUESTRAN LITE, PREVALITE) PKT PO SCH ×4 (06:12→20:37)
[2018-01-25] MEDS: CATHETER FLUSH 10 ML SYR IV SCH ×3 (06:12→20:45)
[2018-01-25] MEDS ORDERED: VENlafaxine XR 75 MG (EFFEXOR XR) CAP PO SCH (07:00)
[2018-01-25 07:51] VITALS: BP 147/83
[2018-01-25 08:31] LABS: BASOPHILS % (AUTO) 0 % (0-10); EOSINOPHILS % (AUTO) 0 % (0-10); HEMATOCRIT 34 % (35-52); HEMOGLOBIN 11.2 G/DL (11.5-16.0); LYMPHOCYTES # (AUTO) 0.5 X 10^3 (1.0-4.0); LYMPHOCYTES % (AUTO) 8 % (12-44); MEAN CORPUSCULAR HEMOGLOBIN 32 PG (25-34); MEAN CORPUSCULAR HGB CONC 33 G/DL (32-36); MEAN CORPUSCULAR VOLUME 96 FL (80-99); MEAN PLATELET VOLUME 9.7 FL (7.4-10.4); MONOCYTES # (AUTO) 0.6 X 10^3 (0.0-1.0); MONOCYTES % (AUTO) 9 % (0-12); NEUTROPHILS # (AUTO) 5.7 X 10^3 (1.8-7.8); NEUTROPHILS % (AUTO) 83 % (42-75); PLATELET COUNT 227 10^3/uL (130-400); RED BLOOD COUNT 3.54 10^6/uL (4.35-5.85); RED CELL DISTRIBUTION WIDTH 19.2 % (10.0-14.5); WHITE BLOOD COUNT 6.9 10^3/uL (4.3-11.0)
[2018-01-25] MEDS: ASPIRIN 81 MG CHEW (CHILDREN'S ASA) PO SCH (08:38)
[2018-01-25] MEDS: LORazepam 0.5 MG (ATIVAN) TABLET PO SCH (08:39)
[2018-01-25] MEDS: CLOPIDOGREL 75 MG (PLAVIX) TABLET PO SCH (08:39)
[2018-01-25] MEDS: predniSONE 20 MG TAB PO SCH (08:39)
[2018-01-25] MEDS: fluCOnazole (DIFLUCAN) 100 MG TAB PO SCH (08:42)
[2018-01-25 08:47] LABS: BUN/CREATININE RATIO 31; CALCIUM 9.5 MG/DL (8.5-10.1); CARBON DIOXIDE 30 MMOL/L (21-32); CHLORIDE 98 MMOL/L (98-107); CREATININE SERUM 0.45 MG/DL (0.60-1.30); GFR ESTIMATED > 60; GLUCOSE 131 MG/DL (70-105); MAGNESIUM 2.3 MG/DL (1.8-2.4); POTASSIUM 4.6 MMOL/L (3.6-5.0); SODIUM 135 MMOL/L (135-145)
[2018-01-25] MEDS ORDERED: CLOPIDOGREL 75 MG (PLAVIX) TABLET PO SCH (09:00)
[2018-01-25] MEDS ORDERED: LEVOTHYROXINE 75 MCG (LEVOTHROID) TABLET PO SCH (09:00)
[2018-01-25] MEDS: CEFEPIME INJECTION 1,000 MG in NS (IVPB) 50 ML IV SCH ×2 (10:01→20:37)
[2018-01-25 12:00] VITALS: BP 133/78
--- NOTE | 2018-01-25 12:45 | Progress Note-Hospitalist ---
Subjective HPI/CC On Admission Date Seen by Provider: Jan 25, 2018 Time Seen by Provider: 10:45 Subjective/Events-last exam Patient reports about the same Diarrheas different although she is still experiencing and it appears to be less frequent Questran is really helping her Denies any pain Maintain on oxygen Review of Systems Pulmonary: Dyspnea Gastrointestinal: Diarrhea Objective Exam Vital Signs Vital Signs Date Time Temp Pulse Resp B/P (MAP) Pulse Ox O2 Delivery O2 Flow Rate FiO2 01/25/18 10:32 99 High Flow N/C 5.00 01/25/18 07:51 97.1 102 20 147/83 (104) 01/23/18 06:51 45 Capillary Refill : Less Than 3 SecondsLess Than 3 Seconds General Appearance: No Apparent Distress, WD/WN, Chronically ill, Thin Respiratory: Lungs Clear, Normal Breath Sounds, Decreased Breath Sounds Cardiovascular: Regular Rate, Rhythm, No Edema Neurologic/Psychiatric: Alert, Oriented x3, No Motor/Sensory Deficits, Normal Mood/Affect Results/Procedures Lab Laboratory Tests 01/25/18 08:10 Patient resulted labs reviewed. 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 Sinus tach Plan: Maintain Questran Maintain meds Overall poor prognosis Diagnosis/Problems Diagnosis/Problems (1) Pseudomonas aeruginosa infection Status: Acute (2) Diabetes mellitus Status: Chronic Qualifiers: Diabetes mellitus type: type 2 Diabetes mellitus half-way insulin use: with half-way use Diabetes mellitus complication status: with circulatory complication Diabetes mellitus complication detail: with other circulatory complications Qualified Codes: E11.59 - Type 2 diabetes mellitus with other circulatory complications; Z79.4 - USP (current) use of insulin (3) Debility Status: Chronic (4) Respiratory distress Status: Resolved (5) Interstitial lung disease Status: Chronic (6) Mild congestive heart failure Status: Acute (7) UTI (urinary tract infection) Status: Acute Qualifiers: Urinary tract infection type: acute cystitis Hematuria presence: without hematuria Qualified Codes: N30.00 - Acute cystitis without hematuria (8) CAD (coronary artery disease) Status: Chronic Qualifiers: Coronary Disease-Associated Artery/Lesion type: [place] artery [place] vs. transplanted heart: [place] heart Associated angina: without angina Qualified Codes: I25.10 - Atherosclerotic heart disease of [place] coronary artery without angina pectoris (9) Myocardial infarct, old Status: Chronic Clinical Quality Measures DVT/VTE Risk/Contraindication: Risk Factor Score Per Nursin RFS Level Per Nursing on Admit: 4+=Very High Contraindications-Pharm: Other *list below* ZHANNA CARMONA DO Jan 25, 2018 12:45
--- NOTE | 2018-01-25 15:51 | Progress Note-Cardiology ---
Cardiology SOAP Progress Note Subjective: Somewhat better compared to time of admission No cp or palp or syncope or leg swelling Objective: I&O/Vital Signs 01/25/18 01/25/18 01/25/18 01/25/18 04:00 06:51 07:00 07:51 Temp 97.7 97.1 Pulse 92 99 102 Resp 20 20 B/P (MAP) 125/71 (89) 147/83 (104) Pulse Ox 99 94 100 O2 Delivery High Flow N/C High Flow N/C High Flow N/C O2 Flow Rate 10.00 5.00 5.00 01/25/18 01/25/18 01/25/18 01/25/18 08:00 10:32 12:00 13:00 Temp 98.2 Pulse 95 103 Resp 24 B/P (MAP) 133/78 (96) Pulse Ox 100 99 99 O2 Delivery High Flow N/C High Flow N/C High Flow N/C O2 Flow Rate 5.00 5.00 5.00 01/25/18 14:06 Pulse Ox 96 O2 Delivery High Flow N/C O2 Flow Rate 5.00 01/25/18 00:00 Intake Total 752 ml Output Total 1700 ml Balance -948 ml Weight (Pounds): 117 Weight (Ounces): 9.0 Weight (Calculated Kilograms): 53.112620 Constitutional: AAO x 3, other (thin, frail) Respiratory: chest expansion is symmetric, chest is bilaterally symmetric, crackles (lower lobes bilat, R>L), other (dyspneic with conversation) Cardiovascular: tachycardia, S1 and S2 Gastrointestional: No tender; soft, audible bowel sounds Genital/Rectal: other (Urinary catheter to DD; clear, yellow urine) Extremities: no lower extremity edema bilateral Neurologic/Psychiatric: grossly intact Skin: No rash, No ulcerations Results/Procedures: Labs Laboratory Tests 01/24/18 16:10: Glucometer 206H 01/24/18 21:08: Glucometer 221H 01/25/18 06:00: Glucometer 145H 01/25/18 08:10: White Blood Count 6.9, Red Blood Count 3.54L, Hemoglobin 11.2L, Hematocrit 34L, Mean Corpuscular Volume 96, Mean Corpuscular Hemoglobin 32, Mean Corpuscular Hemoglobin Concent 33, Red Cell Distribution Width 19.2H, Platelet Count 227, Mean Platelet Volume 9.7, Neutrophils (%) (Auto) 83H, Lymphocytes (%) (Auto) 8L , Monocytes (%) (Auto) 9, Eosinophils (%) (Auto) 0, Basophils (%) (Auto) 0, Neutrophils # (Auto) 5.7, Lymphocytes # (Auto) 0.5L, Monocytes # (Auto) 0.6, Eosinophils # (Auto) 0.0, Basophils # (Auto) 0.0, Sodium Level 135, Potassium Level 4.6, Chloride Level 98, Carbon Dioxide Level 30, Anion Gap 7, Blood Urea Nitrogen 14, Creatinine 0.45L, Estimat Glomerular Filtration Rate > 60, BUN/ Creatinine Ratio 31, Glucose Level 131H, Calcium Level 9.5, Phosphorus Level 3.5 , Magnesium Level 2.3 01/25/18 11:10: Glucometer 163H Microbiology 01/21/18 Blood Culture - Preliminary, Resulted No growth 01/21/18 Urine Culture - Final, Complete Pseudomonas aeruginosa A/P: Assessment: Ac on chronic resp failure, multifactorial (see below) Ac on chronic diastolic CHF - decompensation probably due to steroid therapy for ILD Interstitial lung disease: follows with Dr. Stoll of Pulmonary Services at [facility] and Dr Quan of Pulm Svce at [facility] UTI with sepsis - management per medical services Sinus tach, likely related to acute illness Low body wgt H/o black mold exposure in her home Coronary artery disease, status post cardiac catheterization done by Dr. 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 There is no significant residual stenosis in the right coronary artery and the flow was normal, but right ventricular branch was lost during the procedure due to infarct-related thrombus. A 90% to 95% stenosis of the proximal left circumflex artery, which was treated with stenting with Alpine Xience 2.25 x 12 mm stent with reduction of stenosis to 0% residual. The left anterior descending artery has diffuse [id number] disease H/o chronically low blood pressure Echo of 11/01/17: LVEF 50-55%, grade I rouse dysfunction, no significant pericard eff or valvular heart disease, PASP 25-30 mmHg Well preserved global left ventricular systolic function with ejection fraction 60%, postero-basal hypokinesis, no significant mitral regurgitation and mild elevation of left ventricular end-diastolic pressure on LHC of 08/04/17 TSH 0.26 on lab of 08-05-17, but normal (0.6) on lab work of 01/22/18 Elevated ESR, followed and treated by [facility] Med [facility] Chronic liver enzyme elevation - followed by PCP Chronic hyponatremia - managed by PCP Plan: * Complex management due to multiple comorbidities * Advised effort at wgt gain. 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
[2018-01-25 15:55] VITALS: BP 128/66
[2018-01-25] MEDS ORDERED: CEFEPIME 1 GM (MAXIPIME) VIAL ONE ×2 (20:02→20:26)
[2018-01-25] MEDS ORDERED: NS (IVPB) 50 ML ONE ×2 (20:03→20:26)
[2018-01-25 20:40] VITALS: BP 137/74
[2018-01-26] VITALS (7 sets, daily range): BP systolic 110–130; BP diastolic 59–73
[2018-01-26] MEDS: RT-ALBUTEROL/IPRATROPIUM 3 ML (DUONEB) VIAL INH SCH ×6 (03:00→22:48)
--- NOTE | 2018-01-26 05:34 | Pulmonary Progress Note ---
Subjective Time Seen by Provider: 06:48 Subjective/Events-last exam Pt feels improved. Sepsis Event Evaluation Height, Weight, BMI Height: 5'6.00" Weight: 117lbs. 9.0oz. 53.375442jf; 16.0 BMI Method:Stated Exam Exam Vital Signs Date Time Temp Pulse Resp B/P (MAP) Pulse Ox O2 Delivery O2 Flow Rate FiO2 01/26/18 05:06 97.2 85 20 127/73 (91) 97 High Flow N/C 5.00 01/26/18 04:00 97.2 85 20 127/73 (91) 97 High Flow N/C 5.00 01/26/18 03:00 95 High Flow N/C 4.00 01/26/18 01:00 85 01/26/18 00:01 98.1 87 20 120/65 (83) 98 High Flow N/C 5.00 01/25/18 22:43 98 High Flow N/C 5.00 01/25/18 20:40 98.9 108 20 137/74 (95) 98 High Flow N/C 5.00 01/25/18 19:50 98 Nasal Cannula 4.00 01/25/18 19:00 94 01/25/18 18:50 94 High Flow N/C 5.00 01/25/18 15:55 97.9 98 20 128/66 (86) 95 High Flow N/C 5.00 01/25/18 14:06 96 High Flow N/C 5.00 01/25/18 13:00 103 01/25/18 12:00 98.2 95 24 133/78 (96) 99 High Flow N/C 5.00 01/25/18 10:32 99 High Flow N/C 5.00 01/25/18 08:00 100 High Flow N/C 5.00 01/25/18 07:51 97.1 102 20 147/83 (104) 100 High Flow N/C 5.00 01/25/18 07:00 99 01/25/18 06:51 94 High Flow N/C 5.00 I & O 01/26/18 07:00 Intake Total 737 ml Output Total 1000 ml Balance -263 ml Height & Weight Height: 5'6.00" Weight: 117lbs. 9.0oz. 53.474404kd; 16.0 BMI Method:Stated General Appearance: No Apparent Distress, WD/WN, Chronically ill, Thin HEENT: PERRL/EOMI, Normal ENT Inspection, Pharynx Normal Neck: Normal Inspection, Non Tender, Supple Respiratory: Lungs Clear, Normal Breath Sounds, Decreased Breath Sounds Cardiovascular: Regular Rate, Rhythm, No Edema Capillary Refill: Less Than 3 Seconds Gastrointestinal: normal bowel sounds, non tender, soft, no organomegaly Extremity: Normal Capillary Refill, Normal Inspection Neurologic/Psychiatric: Alert, Oriented x3, No Motor/Sensory Deficits, Normal Mood/Affect Skin: Normal Color, Warm/Dry Lymphatic: No Adenopathy Results Lab Laboratory Tests 01/25/18 08:10 Assessment/Plan Assessment/Plan ILD hx of black mold exposure PUlmonary fibrosis acute exacerbation - prednisone 60mg daily -Decrease to 40mg daily -SVNS -High flow oxygen -Continue zosyn, and azithromycin Thrush -Continue diflucan Acute on chronic lung disease hx of pseudomonus UTI - zosyn Debility -PT/OT -Up to chair BID Sinus tach -monitor, JUANA WILLS DO Jan 26, 2018 05:34
[2018-01-26] MEDS: inSUlin ASPART (NovoLOG) 1 UNIT/0.01 ML (CHARGE PER UNIT) SC SCH ×4 (05:40→22:21)
[2018-01-26] MEDS: CATHETER FLUSH 10 ML SYR IV SCH ×3 (06:11→22:24)
[2018-01-26] MEDS: CHOLESTYRAMINE 4 GM (QUESTRAN LITE, PREVALITE) PKT PO SCH ×4 (06:11→22:20)
[2018-01-26] MEDS: LEVOTHYROXINE 75 MCG (LEVOTHROID) TABLET PO SCH ×2 (06:12→08:57)
[2018-01-26 06:17] LABS: BASOPHILS % (AUTO) 0 % (0-10); EOSINOPHILS % (AUTO) 0 % (0-10); HEMATOCRIT 31 % (35-52); HEMOGLOBIN 10.6 G/DL (11.5-16.0); LYMPHOCYTES # (AUTO) 0.5 X 10^3 (1.0-4.0); LYMPHOCYTES % (AUTO) 8 % (12-44); MEAN CORPUSCULAR HEMOGLOBIN 33 PG (25-34); MEAN CORPUSCULAR HGB CONC 35 G/DL (32-36); MEAN CORPUSCULAR VOLUME 94 FL (80-99); MEAN PLATELET VOLUME 9.7 FL (7.4-10.4); MONOCYTES # (AUTO) 0.7 X 10^3 (0.0-1.0); MONOCYTES % (AUTO) 10 % (0-12); NEUTROPHILS # (AUTO) 5.4 X 10^3 (1.8-7.8); NEUTROPHILS % (AUTO) 82 % (42-75); PLATELET COUNT 214 10^3/uL (130-400); RED BLOOD COUNT 3.25 10^6/uL (4.35-5.85); RED CELL DISTRIBUTION WIDTH 18.2 % (10.0-14.5); WHITE BLOOD COUNT 6.6 10^3/uL (4.3-11.0)
[2018-01-26 06:50] LABS: BUN/CREATININE RATIO 35; CALCIUM 8.8 MG/DL (8.5-10.1); CARBON DIOXIDE 29 MMOL/L (21-32); CHLORIDE 96 MMOL/L (98-107); GFR ESTIMATED > 60; GLUCOSE 117 MG/DL (70-105); MAGNESIUM 2.2 MG/DL (1.8-2.4); POTASSIUM 4.8 MMOL/L (3.6-5.0); SODIUM 132 MMOL/L (135-145)
[2018-01-26] MEDS ORDERED: CEFEPIME 1 GM (MAXIPIME) VIAL ONE ×2 (08:36→22:10)
[2018-01-26] MEDS ORDERED: NS (IVPB) 50 ML ONE ×2 (08:38→22:10)
[2018-01-26] MEDS: LORazepam 0.5 MG (ATIVAN) TABLET PO SCH (08:53)
[2018-01-26] MEDS: PANTOPRAZOLE 40 MG (PROTONIX) TAB PO SCH (08:53)
[2018-01-26] MEDS: CEFEPIME INJECTION 1,000 MG in NS (IVPB) 50 ML IV SCH ×2 (08:53→22:20)
[2018-01-26] MEDS: ASPIRIN 81 MG CHEW (CHILDREN'S ASA) PO SCH (08:53)
[2018-01-26] MEDS: CLOPIDOGREL 75 MG (PLAVIX) TABLET PO SCH (08:54)
[2018-01-26] MEDS: fluCOnazole (DIFLUCAN) 100 MG TAB PO SCH (08:57)
[2018-01-26] MEDS: VENlafaxine XR 75 MG (EFFEXOR XR) CAP PO SCH (08:57)
[2018-01-26] MEDS ORDERED: predniSONE 20 MG TAB PO SCH (09:00)
--- NOTE | 2018-01-26 11:40 | Physical Therapy Daily Note ---
PT Daily Note-Current Subjective Pt laying Supine in bed resting with family present upon arrival. Pt agrees to PT but reports fatigue. Pain Location: No Pain Reported Mental Status Patient Orientation: Person, Place, Time, Situation Attachments: Oxygen Transfers Functional [place] Measure 0=Not Assessed/NA 4=Minimal Assistance 1=Total Assistance 5=Supervision or Setup 2=Maximal Assistance 6=Modified [place] 3=Moderate Assistance 7=Complete IndependenceIRFPAI Quality Coding Scale 6 Independent with activity with or without an assistive device 5 Patient requires set up or clean up by helper. Patient completes activity by themselves 4 Supervision or touching assist (CGA). [place] provide cues , steadying assist 3 The helper provides less than half the effort to complete the activity 2 The helper provides more than half the effort to complete the activity 1 Dependent. The helper does all the effort to complete an activity 7 Patient refused to complete or attempt activity 9 The patient did not perform the activity before the current illness or injury 88 Not attempted due to Medical conditions or safety concerns Weight Bearing Right Lower Extremity: Right Full Weight Bearing Left Lower Extremity: Left Full Weight Bearing Exercises Supine Ex: Ankle pumps, Quad Set, Hip abd/add Supine Reps: 15 Treatments Pt completes Supine Ex while CHIEF DESIGN DRAFTER gives education to pt & family over Energy Conservation, need for movement but balancing with not over fatiguing and how EX could be incorporated into daily routine. Pt resting in bed at end of tx with all needs met. Assessment Current Status: Good Progress Pt fatigues easily but is motivated to get better to go home. Pt is aware of struggles she will face and nature of condition. 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 Goals Longterm Goals 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 Goals Time Frame: Feb 07, 2018 Transfers (B,C,W/C) (FIM): 6 Gait (FIM): 2 Gait distance (FIM): 7=140-26 ft Distance: 125' Gait Level of Assist: 5 Gait Assistive Device: FWW PT Plan Problem List Problem List: Activity Tolerance, Functional Strength, Gait Treatment/Plan Treatment Plan: Continue Plan of Care Treatment Plan: Bed Mobility, Education, Functional Activity Herb, Functional Strength, Gait, Safety, Therapeutic Exercise, Transfers Treatment Duration: Feb 07, 2018 Frequency: 6 times per week Estimated Hrs Per Day: .5 hour per day Patient and/or Family Agrees t: Yes Safety Risks/Education Patient Education: Gait Training, Transfer Techniques, Correct Positioning, Safety Issues Teaching Recipient: Patient Teaching Methods: Discussion Response to Teaching: Verbalize Understanding Time/GCodes Time In: 955 Time Out: 1015 Total Billed Treatment Time: 20 Total Billed Treatment 1, JESSICA (20m) Delroy Codes Necessary: JULIO Jacob PTA Jan 26, 2018 11:40
--- NOTE | 2018-01-26 12:20 | Progress Note-Cardiology ---
Cardiology SOAP Progress Note Subjective: No new symptoms Continues with malaise and shortness of breath, albeit improved compared to time of admission No cp or palp or syncope Objective: I&O/Vital Signs 01/26/18 01/26/18 01/26/18 01/26/18 01:00 03:00 04:00 05:06 Temp 97.2 97.2 Pulse 85 85 85 Resp 20 20 B/P (MAP) 127/73 (91) 127/73 (91) Pulse Ox 95 97 97 O2 Delivery High Flow N/C High Flow N/C High Flow N/C O2 Flow Rate 4.00 5.00 5.00 01/26/18 01/26/18 01/26/18 01/26/18 06:51 07:00 08:00 08:00 Temp 97.3 Pulse 84 89 Resp 28 B/P (MAP) 127/73 (91) Pulse Ox 96 100 97 O2 Delivery High Flow N/C High Flow N/C High Flow N/C O2 Flow Rate 5.00 5.00 5.00 01/26/18 10:52 Pulse Ox 97 O2 Delivery High Flow N/C O2 Flow Rate 5.00 01/26/18 00:00 Intake Total 737 ml Output Total 1000 ml Balance -263 ml Weight (Pounds): 117 Weight (Ounces): 0.0 Weight (Calculated Kilograms): 53.115561 Constitutional: AAO x 3, other (thin, frail) Respiratory: chest expansion is symmetric, chest is bilaterally symmetric, crackles (lower lobes bilat, R>L), other (dyspneic with conversation) Cardiovascular: tachycardia, S1 and S2 Gastrointestional: No tender; soft, audible bowel sounds Genital/Rectal: other (Urinary catheter to DD; clear, yellow urine) Extremities: no lower extremity edema bilateral Neurologic/Psychiatric: grossly intact Skin: No rash, No ulcerations Results/Procedures: Labs Laboratory Tests 01/25/18 16:16: Glucometer 262H 01/25/18 20:40: Glucometer 199H 01/26/18 05:35: Glucometer 122H 01/26/18 06:00: White Blood Count 6.6, Red Blood Count 3.25L, Hemoglobin 10.6L, Hematocrit 31L, Mean Corpuscular Volume 94, Mean Corpuscular Hemoglobin 33, Mean Corpuscular Hemoglobin Concent 35, Red Cell Distribution Width 18.2H, Platelet Count 214, Mean Platelet Volume 9.7, Neutrophils (%) (Auto) 82H, Lymphocytes (%) (Auto) 8L , Monocytes (%) (Auto) 10, Eosinophils (%) (Auto) 0, Basophils (%) (Auto) 0, Neutrophils # (Auto) 5.4, Lymphocytes # (Auto) 0.5L, Monocytes # (Auto) 0.7, Eosinophils # (Auto) 0.0, Basophils # (Auto) 0.0, Phosphorus Level 3.6 01/26/18 06:07: Sodium Level 132L, Potassium Level 4.8, Chloride Level 96L, Carbon Dioxide Level 29, Anion Gap 7, Blood Urea Nitrogen 14, Creatinine 0.40L, Estimat Glomerular Filtration Rate > 60, BUN/Creatinine Ratio 35, Glucose Level 117H, Calcium Level 8.8, Magnesium Level 2.2 01/26/18 11:17: Glucometer 154H Microbiology 01/21/18 Blood Culture - Preliminary, Resulted No growth 01/21/18 Urine Culture - Final, Complete Pseudomonas aeruginosa Laboratory Tests 01/25/18 08:10 01/26/18 06:00 01/26/18 06:07 A/P: Assessment: Ac on chronic resp failure, multifactorial (see below) Ac on chronic diastolic CHF - decompensation probably due to steroid therapy for ILD Interstitial lung disease: follows with Dr. Stoll of Pulmonary Services at [facility] and Dr Quan of Pulm Svce at [facility] UTI with sepsis - management per medical services Sinus tach, likely related to acute illness Low body wgt H/o black mold exposure in her home Coronary artery disease, status post cardiac catheterization done by Dr. 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 There is no significant residual stenosis in the right coronary artery and the flow was normal, but right ventricular branch was lost during the procedure due to infarct-related thrombus. A 90% to 95% stenosis of the proximal left circumflex artery, which was treated with stenting with Alpine Xience 2.25 x 12 mm stent with reduction of stenosis to 0% residual. The left anterior descending artery has diffuse [id number] disease H/o chronically low blood pressure Echo of 11/01/17: LVEF 50-55%, grade I rouse dysfunction, no significant pericard eff or valvular heart disease, PASP 25-30 mmHg Well preserved global left ventricular systolic function with ejection fraction 60%, postero-basal hypokinesis, no significant mitral regurgitation and mild elevation of left ventricular end-diastolic pressure on LHC of 08/04/17 TSH 0.26 on lab of 08-05-17, but normal (0.6) on lab work of 01/22/18 Elevated ESR, followed and treated by [facility]m [facility] Med [facility] Chronic liver enzyme elevation - followed by PCP Chronic hyponatremia - managed by PCP Plan: * Complex management due to multiple comorbidities * Advised effort at wgt gain * Monitor labs * Management of advanced ILD is with the Pulm and Med Svces * [facility] prognosis is guarded * I again discussed her CV issues with her and her fam LIZY SCHUMACHER MD FACP FAC CCDS Jan 26, 2018 12:20
--- NOTE | 2018-01-26 13:34 | Occupational Ther Daily Note ---
OT Current Status-Daily Note Subjective Pt sitting up in chair, states she is tired this afternoon and would like to get back into bed. No c/o pain. Mental Status/Objective Functional [place] Measure 0=Not Assessed/NA 4=Minimal Assistance 1=Total Assistance 5=Supervision or Setup 2=Maximal Assistance 6=Modified [place] 3=Moderate Assistance 7=Complete [place] Attachments: Oxygen Other Treatment Pt sit to stand with minimal assistance. Transfer to EOB with hand held assist and skilled cues for safety. Pt sit to supine with SBA. Pt has impaired activity tolerance and requires recovery break secondary to shortness of breath. Pt able to reposition self in bed. Resting in bed with needs met and spouse present after session. OT Short Term Goals Short Term Goals 1=Demonstrate adherence to instructed precautions during ADL tasks. 2=Patient will verbalize/demonstrate understanding of assistive devices/ modifications for ADL. 3=Patient will improve strength/tolerance for activity to enable patient to perform ADL's. OT Detention Goals Detention Goals Time Frame: Feb 06, 2018 Grooming(FIM): 5 Upper Body Dressing(FIM): 5 Lower Body Dressing(FIM): 4 Additional Goals: 2-Verbalize Understanding, 3-ImproveStrength/Herb 1=Demonstrate adherence to instructed precautions during ADL tasks. 2=Patient will verbalize/demonstrate understanding of assistive devices/ modifications for ADL. 3=Patient will improve strength/tolerance for activity to enable patient to perform ADL's. OT Education/Plan Discharge Recommendations Plan/Recommendations: Continue POC Treatment Plan/Plan of Care Patient would benefit from OT for education, treatment and training to promote independence in ADL's, mobility, safety and/or upper extremity function for ADL' s. Plan of Care: ADL Retraining, Functional Mobility, UE Funct Exercise/Act Treatment Duration: Feb 06, 2018 Frequency: 5 times per week Estimated Hrs Per Day: .25 hour per day Rehab Potential: Fair Time/GCodes Start Time: 12:54 Stop Time: 13:04 Total Time Billed (hr/min): 10 Billed Treatment Time 1 visit, FA(10minutes) TRICIA VARGAS OT Jan 26, 2018 13:34
[2018-01-26] MEDS: FUROSEMIDE 40 MG (LASIX) TAB PO SCH (14:36)
[2018-01-26] MEDS: KCL 10 MEQ TAB (MICRO K) PO SCH (14:36)
[2018-01-27] VITALS: BP 139/77
[2018-01-27] MEDS: RT-ALBUTEROL/IPRATROPIUM 3 ML (DUONEB) VIAL INH SCH ×3 (02:09→09:19)
[2018-01-27 04:00] VITALS: BP 111/61
[2018-01-27] MEDS: inSUlin ASPART (NovoLOG) 1 UNIT/0.01 ML (CHARGE PER UNIT) SC SCH ×2 (05:52→12:08)
[2018-01-27] MEDS: CHOLESTYRAMINE 4 GM (QUESTRAN LITE, PREVALITE) PKT PO SCH ×2 (06:00→12:08)
[2018-01-27] MEDS: VENlafaxine XR 75 MG (EFFEXOR XR) CAP PO SCH ×2 (06:00→08:32)
[2018-01-27 06:02] LABS: BASOPHILS % (AUTO) 0 % (0-10); EOSINOPHILS % (AUTO) 0 % (0-10); HEMATOCRIT 33 % (35-52); HEMOGLOBIN 11.3 G/DL (11.5-16.0); LYMPHOCYTES # (AUTO) 0.6 X 10^3 (1.0-4.0); LYMPHOCYTES % (AUTO) 8 % (12-44); MEAN CORPUSCULAR HEMOGLOBIN 32 PG (25-34); MEAN CORPUSCULAR HGB CONC 34 G/DL (32-36); MEAN CORPUSCULAR VOLUME 94 FL (80-99); MEAN PLATELET VOLUME 9.7 FL (7.4-10.4); MONOCYTES # (AUTO) 0.7 X 10^3 (0.0-1.0); MONOCYTES % (AUTO) 9 % (0-12); NEUTROPHILS # (AUTO) 5.9 X 10^3 (1.8-7.8); NEUTROPHILS % (AUTO) 82 % (42-75); PLATELET COUNT 241 10^3/uL (130-400); RED BLOOD COUNT 3.53 10^6/uL (4.35-5.85); RED CELL DISTRIBUTION WIDTH 18.6 % (10.0-14.5); WHITE BLOOD COUNT 7.2 10^3/uL (4.3-11.0)
[2018-01-27] MEDS: LEVOTHYROXINE 75 MCG (LEVOTHROID) TABLET PO SCH (06:06)
[2018-01-27] MEDS: CATHETER FLUSH 10 ML SYR IV SCH (06:07)
[2018-01-27 06:30] LABS: BUN/CREATININE RATIO 43; CALCIUM 8.8 MG/DL (8.5-10.1); CARBON DIOXIDE 29 MMOL/L (21-32); CHLORIDE 95 MMOL/L (98-107); GFR ESTIMATED > 60; GLUCOSE 107 MG/DL (70-105); MAGNESIUM 2.4 MG/DL (1.8-2.4); PHOSPHORUS 3.4 MG/DL (2.3-4.7); POTASSIUM 4.5 MMOL/L (3.6-5.0); SODIUM 130 MMOL/L (135-145)
--- NOTE | 2018-01-27 06:53 | Pulmonary Progress Note ---
Subjective Time Seen by Provider: 07:16 Sepsis Event Evaluation Height, Weight, BMI Height: 5'6.00" Weight: 117lbs. 0.0oz. 53.801848hd; 16.0 BMI Method:Stated Exam Exam Vital Signs Date Time Temp Pulse Resp B/P (MAP) Pulse Ox O2 Delivery O2 Flow Rate FiO2 01/27/18 04:00 95.7 90 20 111/61 (78) 93 High Flow N/C 4.00 01/27/18 02:10 95 High Flow N/C 4.00 01/27/18 01:00 88 01/27/18 00:00 97.7 107 21 139/77 (97) 92 High Flow N/C 4.00 01/26/18 22:51 96 High Flow N/C 5.00 01/26/18 20:00 100 High Flow N/C 5.00 01/26/18 19:51 97.9 98 20 110/59 (76) 94 High Flow N/C 5.00 01/26/18 19:00 95 01/26/18 18:45 97 High Flow N/C 5.00 01/26/18 15:51 98.7 91 20 118/66 (83) 96 High Flow N/C 5.00 01/26/18 15:02 High Flow N/C 5.00 01/26/18 13:00 92 01/26/18 12:00 98.3 91 22 130/70 (90) 98 High Flow N/C 5.00 01/26/18 10:52 97 High Flow N/C 5.00 01/26/18 08:00 97.3 89 28 127/73 (91) 97 High Flow N/C 5.00 01/26/18 08:00 100 High Flow N/C 5.00 01/26/18 07:00 84 01/26/18 06:51 96 High Flow N/C 5.00 I & O 01/27/18 07:00 Intake Total 950 ml Output Total 500 ml Balance 450 ml Height & Weight Height: 5'6.00" Weight: 117lbs. 0.0oz. 53.164884et; 16.0 BMI Method:Stated General Appearance: No Apparent Distress, WD/WN, Chronically ill, Thin HEENT: PERRL/EOMI, Normal ENT Inspection, Pharynx Normal Neck: Normal Inspection, Non Tender, Supple Respiratory: Lungs Clear, Normal Breath Sounds, Decreased Breath Sounds Cardiovascular: Regular Rate, Rhythm, No Edema Capillary Refill: Less Than 3 Seconds Gastrointestinal: normal bowel sounds, non tender, soft, no organomegaly Extremity: Normal Capillary Refill, Normal Inspection Neurologic/Psychiatric: Alert, Oriented x3, No Motor/Sensory Deficits, Normal Mood/Affect Skin: Normal Color, Warm/Dry Lymphatic: No Adenopathy Results Lab Laboratory Tests 01/25/18 08:10 01/26/18 06:00 01/26/18 06:07 01/27/18 05:35 Assessment/Plan Assessment/Plan ILD hx of black mold exposure PUlmonary fibrosis acute exacerbation - prednisone 60mg daily -Decrease to 30mg daily -Start BCTM 3 x per week per PCP ppx -SVNS -D/C zosyn, and azithromycin -Repeat CXR Thrush -Continue diflucan x 7 days total Acute on chronic lung disease hx of pseudomonus UTI Debility -PT/OT -Up to chair BID Sinus tach -monitor, JUANA WILLS DO Jan 27, 2018 06:53
--- NOTE | 2018-01-27 07:54 | Progress Note (SOAP) ---
Subjective Time Seen by Provider: 07:45 Objective Exam Vital Signs Date Time Temp Pulse Resp B/P (MAP) Pulse Ox O2 Delivery O2 Flow Rate FiO2 01/27/18 07:00 86 01/27/18 06:53 93 High Flow N/C 4.00 01/27/18 04:00 95.7 90 20 111/61 (78) 93 High Flow N/C 4.00 01/27/18 02:10 95 High Flow N/C 4.00 01/27/18 01:00 88 01/27/18 00:00 97.7 107 21 139/77 (97) 92 High Flow N/C 4.00 01/26/18 22:51 96 High Flow N/C 5.00 01/26/18 20:00 100 High Flow N/C 5.00 01/26/18 19:51 97.9 98 20 110/59 (76) 94 High Flow N/C 5.00 01/26/18 19:00 95 01/26/18 18:45 97 High Flow N/C 5.00 01/26/18 15:51 98.7 91 20 118/66 (83) 96 High Flow N/C 5.00 01/26/18 15:02 High Flow N/C 5.00 01/26/18 13:00 92 01/26/18 12:00 98.3 91 22 130/70 (90) 98 High Flow N/C 5.00 01/26/18 10:52 97 High Flow N/C 5.00 01/26/18 08:00 97.3 89 28 127/73 (91) 97 High Flow N/C 5.00 01/26/18 08:00 100 High Flow N/C 5.00 I & O 01/27/18 07:00 Intake Total 1000 ml Output Total 600 ml Balance 400 ml Capillary Refill : Less Than 3 SecondsLess Than 3 Seconds General Appearance: No Apparent Distress, WD/WN HEENT: Normal ENT Inspection Neck: Full Range of Motion, Normal Inspection Respiratory: No Accessory Muscle Use, No Respiratory Distress, Decreased Breath Sounds Cardiovascular: Regular Rate, Rhythm, No Murmur Gastrointestinal: non tender, soft Results Lab Laboratory Tests 01/27/18 05:35 Laboratory Tests 01/26/18 11:17: Glucometer 154H 01/26/18 15:55: Glucometer 236H 01/26/18 20:39: Glucometer 184H 01/27/18 05:35: White Blood Count 7.2, Red Blood Count 3.53L, Hemoglobin 11.3L, Hematocrit 33L, Mean Corpuscular Volume 94, Mean Corpuscular Hemoglobin 32, Mean Corpuscular Hemoglobin Concent 34, Red Cell Distribution Width 18.6H, Platelet Count 241, Mean Platelet Volume 9.7, Neutrophils (%) (Auto) 82H, Lymphocytes (%) (Auto) 8L , Monocytes (%) (Auto) 9, Eosinophils (%) (Auto) 0, Basophils (%) (Auto) 0, Neutrophils # (Auto) 5.9, Lymphocytes # (Auto) 0.6L, Monocytes # (Auto) 0.7, Eosinophils # (Auto) 0.0, Basophils # (Auto) 0.0, Sodium Level 130L, Potassium Level 4.5, Chloride Level 95L, Carbon Dioxide Level 29, Anion Gap 6, Blood Urea Nitrogen 17, Creatinine 0.40L, Estimat Glomerular Filtration Rate > 60, BUN/ Creatinine Ratio 43, Glucose Level 107H, Calcium Level 8.8, Phosphorus Level 3.4 , Magnesium Level 2.4 01/27/18 05:45: Glucometer 115H Microbiology 01/21/18 Blood Culture - Preliminary, Resulted No growth 01/21/18 Urine Culture - Final, Complete Pseudomonas aeruginosa Assessment/Plan Assessment/Plan Assess & Plan/Chief Complaint Interstitial lung disease. Pulmonary fibrosis. Thrush. History of pseudomonas UTI. Hypokalemia. Hypotension. Patient stable in her unstable way. . 01/27/18. Patient at baseline. Patient feels comfortable going home. Patient son will take care of her. Interstitial lung disease. Pulmonary fibrosis. Thrush in mouth. History of pseudomonas UTI. Hypotension. Patient be discharged today Clinical Quality Measures Admission Status Admission Dx Respiratory distress. interstitial lung disease. chronic hypoxia. UTI. History of [place]. Exposure to mold. Hypotension DVT/VTE Risk/Contraindication: Risk Factor Score Per Nursin RFS Level Per Nursing on Admit: 4+=Very High Contraindications-Pharm: Other *list below* ABRAM BRITT DO Jan 27, 2018 07:54
--- NOTE | 2018-01-27 07:58 | Discharge Inst-Simple/Standard ---
Discharge Inst-Standard Patient Instructions/Follow Up Plan of Care/Instructions/FU: Dr. Boyd see in one week. Dr. Quan the to see in 2 weeks Activity as Tolerated: Yes Discharge Diet: No Restrictions ABRAM BOYD DO Jan 27, 2018 07:58
[2018-01-27 08:00] VITALS: BP 130/67
[2018-01-27] MEDS: CLOPIDOGREL 75 MG (PLAVIX) TABLET PO SCH (08:30)
[2018-01-27] MEDS: LORazepam 0.5 MG (ATIVAN) TABLET PO SCH (08:32)
[2018-01-27] MEDS: PANTOPRAZOLE 40 MG (PROTONIX) TAB PO SCH (08:32)
[2018-01-27] MEDS: ASPIRIN 81 MG CHEW (CHILDREN'S ASA) PO SCH (08:32)
[2018-01-27] MEDS: fluCOnazole (DIFLUCAN) 100 MG TAB PO SCH (08:32)
[2018-01-27] MEDS ORDERED: predniSONE 20 MG TAB PO SCH (09:00)
--- NOTE | 2018-01-27 09:56 | Occ Therapy Progress Note ---
Therapy Progress Note Pt stated that she was going home today and declined getting dressed or cleaned up. Pt verbalized understanding of exercises with theraband. 1 [id number] PAOLA BUITRAGO Jan 27, 2018 09:56
[2018-01-27] MEDS ORDERED: SULF-222 PO (11:01)
[2018-01-27] MEDS ORDERED: PRED10TA22 PO (11:01)
--- NOTE | 2018-01-27 13:49 | Diagnostic Imaging Report ---
INDICATION: Shortness of breath and interstitial lung disease. TIME OF EXAM: 9:25 a.m. COMPARISON: Correlation is made with prior study from 01/23/2018. FINDINGS: The heart size is stable. Right hemidiaphragm is chronically elevated. Interstitial prominence throughout both lungs persists and is similar to examination four days earlier. There is some slight increased density in the right upper lung field, which may represent some superimposed infiltrate. No additional area of new consolidation is seen. No effusion or pneumothorax is identified. IMPRESSION: Chronic interstitial changes. There is some slight increase in density in the right upper lobe, which may represent some increasing superimposed infiltrate since study four days earlier. Continued followup is recommended. Dictated by: Dictated on workstation # [id number]
[2018-01-28] MEDS ORDERED: TRIM/SULFAMETH 160/800 (SEPTRA DS) TAB PO SCH (07:00)
--- NOTE | 2018-01-29 06:53 | Discharge Summary ---
Diagnosis/Chief Complaint Date of Admission Jan 21, 2018 at 19:11 Date of Discharge Jan 27, 2018 at 14:27 Discharge Date: Jan 27, 2018 Discharge Time: 06:50 Discharge Diagnosis Interstitial lung disease. Respiratory distress. UTI history of pseudomonas. Respiratory distress. Chronic hypoxia. Anemia. Hyponatremia. Diabetes Reason Hospital Visit Patient brought to the emergency room by . Patient short of breath. Patient needed we'll get him into the emergency room and help. Patient usually is on oxygen at 4 L. Patient still short of breath now at 15 L of nasal oxygen. Patient has history of interstitial lung disease. Patient had AK this year. Patient exposed to mold Discharge Summary Consultations Pulmonology Discharge Physical Examination Allergies: Coded Allergies: No Known Drug Allergies (Unverified , 08/03/17) Vitals & I&Os Vital Signs Date Time Temp Pulse Resp B/P (MAP) Pulse Ox O2 Delivery O2 Flow Rate FiO2 01/27/18 12:25 01/27/18 09:20 99 High Flow N/C 10.00 01/27/18 08:00 97.9 98 18 01/23/18 06:51 45 Hospital Course Labs (last 24 hrs) Laboratory Tests 01/21/18 18:00: White Blood Count 6.7, Red Blood Count 4.07L, Hemoglobin 13.0, Hematocrit 38, Mean Corpuscular Volume 93, Mean Corpuscular Hemoglobin 32, Mean Corpuscular Hemoglobin Concent 34, Red Cell Distribution Width 17.6H, Platelet Count 279, Mean Platelet Volume 9.9, Neutrophils (%) (Auto) 89H, Lymphocytes (%) (Auto) 8L , Monocytes (%) (Auto) 4, Eosinophils (%) (Auto) 0, Basophils (%) (Auto) 0, Neutrophils # (Auto) 5.9, Lymphocytes # (Auto) 0.5L, Monocytes # (Auto) 0.3, Eosinophils # (Auto) 0.0, Basophils # (Auto) 0.0, Neutrophils % (Manual) 75, Lymphocytes % (Manual) 9, Monocytes % (Manual) 3, Eosinophils % (Manual) 0, Basophils % (Manual) 0, Band Neutrophils 13, Blood Morphology Comment NORMAL, Prothrombin Time 13.8, INR Comment 1.1, Activated Partial Thromboplast Time 22L , Sodium Level 131L, Potassium Level 4.6, Chloride Level 93L, Carbon Dioxide Level 30, Anion Gap 8, Blood Urea Nitrogen 14, Creatinine 0.57L, Estimat Glomerular Filtration Rate > 60, BUN/Creatinine Ratio 25, Glucose Level 212H, Calcium Level 9.3, Corrected Calcium 9.6, Magnesium Level 2.1, Total Bilirubin 0.7, Aspartate Amino Transf (AST/SGOT) 58H, Alanine Aminotransferase (ALT/SGPT) 103H, Alkaline Phosphatase 51, Total Creatine Kinase 146, Creatine Kinase MB 4.3 , Troponin I < 0.30, B-Type Natriuretic Peptide 196.7H, Total Protein 6.3L, Albumin 3.6 01/21/18 18:05: Lactic Acid Level 2.21*H 01/21/18 18:30: Blood Gas Puncture Site LEFT RADIAL, Blood Gas Patient Temperature 97.7, Arterial Blood pH 7.45H, Arterial Blood Partial Pressure CO2 45, Arterial Blood Partial Pressure O2 91, Arterial Blood HCO3 31H, Arterial Blood Total CO2 32.4H , Arterial Blood Oxygen Saturation 99, Arterial Blood Base Excess 6.8H, Corey Test POSITIVE, Blood Gas Ventilator Setting NO, Blood Gas Inspired Oxygen 45% 01/21/18 18:45: Urine Color YELLOW, Urine Clarity VERY CLOUDYH, Urine pH 8, Urine Specific [place] 1.015L, Urine Protein 1+H, Urine Glucose (UA) NEGATIVE, Urine Ketones NEGATIVE, Urine Nitrite NEGATIVE, Urine Bilirubin NEGATIVE, Urine Urobilinogen NORMAL, Urine Leukocyte Esterase 3+H, Urine RBC (Auto) 3+H, Urine RBC 5-10H, Urine WBC 50-100H, Urine Squamous Epithelial Cells RARE, Urine Renal Epithelial Cells 0-2, Urine Crystals PRESENTH, Urine Amorphous Sediment FEW NISSA PHOSPHATEH , Urine Bacteria FEWH, Urine Casts NONE, Urine Mucus NEGATIVE, Urine Culture Indicated YES 01/21/18 19:11: Lab Scanned Report Referred Lab Report 01/21/18 20:35: Lactic Acid Level 1.37 01/21/18 23:10: Glucometer 171H 01/22/18 02:55: White Blood Count 5.1, Red Blood Count 3.61L, Hemoglobin 11.6, Hematocrit 34L, Mean Corpuscular Volume 93, Mean Corpuscular Hemoglobin 32, Mean Corpuscular Hemoglobin Concent 35, Red Cell Distribution Width 17.5H, Platelet Count 245, Mean Platelet Volume 10.0, Neutrophils (%) (Auto) 92H, Lymphocytes (%) (Auto) 6L , Monocytes (%) (Auto) 2, Eosinophils (%) (Auto) 0, Basophils (%) (Auto) 0, Neutrophils # (Auto) 4.7, Lymphocytes # (Auto) 0.3L, Monocytes # (Auto) 0.1, Eosinophils # (Auto) 0.0, Basophils # (Auto) 0.0, Sodium Level 134L, Potassium Level 3.8, Chloride Level 93L, Carbon Dioxide Level 28, Anion Gap 13, Blood Urea Nitrogen 15, Creatinine 0.51L, Estimat Glomerular Filtration Rate > 60, BUN /Creatinine Ratio 29, Glucose Level 172H, Calcium Level 9.0, Corrected Calcium 9.4, Total Bilirubin 0.6, Aspartate Amino Transf (AST/SGOT) 48H, Alanine Aminotransferase (ALT/SGPT) 93H, Alkaline Phosphatase 46, Total Protein 6.0L, Albumin 3.5, Procalcitonin 0.10H, Thyroid Stimulating Hormone (TSH) 0.60 01/22/18 11:31: Glucometer 254H 01/22/18 15:47: Glucometer 277H 01/22/18 21:00: Glucometer 304H 01/23/18 03:25: White Blood Count 9.4, Red Blood Count 2.94L, Hemoglobin 9.4L, Hematocrit 28L, Mean Corpuscular Volume 94, Mean Corpuscular Hemoglobin 32, Mean Corpuscular Hemoglobin Concent 34, Red Cell Distribution Width 17.8H, Platelet Count 219, Mean Platelet Volume 9.4, Neutrophils (%) (Auto) 90H, Lymphocytes (%) (Auto) 2L , Monocytes (%) (Auto) 8, Eosinophils (%) (Auto) 0, Basophils (%) (Auto) 0, Neutrophils # (Auto) 8.4H, Lymphocytes # (Auto) 0.2L, Monocytes # (Auto) 0.8, Eosinophils # (Auto) 0.0, Basophils # (Auto) 0.0, Neutrophils % (Manual) 89, Lymphocytes % (Manual) 1, Monocytes % (Manual) 10, Poikilocytosis SLIGHT, Basophilic Stippling SLIGHT, Anisocytosis SLIGHT, Sodium Level 133L, Potassium Level 3.4L, Chloride Level 94L, Carbon Dioxide Level 29, Anion Gap 10, Blood Urea Nitrogen 18, Creatinine 0.50L, Estimat Glomerular Filtration Rate > 60, BUN /Creatinine Ratio 36, Glucose Level 217H, Calcium Level 8.7, Corrected Calcium 9.5, Phosphorus Level 1.4L, Magnesium Level 1.9, Total Bilirubin 0.3, Aspartate Amino Transf (AST/SGOT) 37H, Alanine Aminotransferase (ALT/SGPT) 75H, Alkaline Phosphatase 41, B-Type Natriuretic Peptide 156.4H, Total Protein 4.9L, Albumin 3.0L 01/23/18 11:45: Glucometer 222H 01/23/18 17:13: Glucometer 266H 01/23/18 21:00: Glucometer 275H 01/24/18 03:25: White Blood Count 7.3, Red Blood Count 2.90L, Hemoglobin 9.4L, Hematocrit 28L, Mean Corpuscular Volume 95, Mean Corpuscular Hemoglobin 32, Mean Corpuscular Hemoglobin Concent 34, Red Cell Distribution Width 18.6H, Platelet Count 199, Mean Platelet Volume 9.8, Neutrophils (%) (Auto) 85H, Lymphocytes (%) (Auto) 5L , Monocytes (%) (Auto) 10, Eosinophils (%) (Auto) 0, Basophils (%) (Auto) 0, Neutrophils # (Auto) 6.2, Lymphocytes # (Auto) 0.4L, Monocytes # (Auto) 0.7, Eosinophils # (Auto) 0.0, Basophils # (Auto) 0.0, Sodium Level 137, Potassium Level 4.2, Chloride Level 100, Carbon Dioxide Level 25, Anion Gap 12, Blood Urea Nitrogen 22H, Creatinine 0.43L, Estimat Glomerular Filtration Rate > 60, BUN/Creatinine Ratio 51, Glucose Level 130H, Calcium Level 8.7, Phosphorus Level 3.4, Magnesium Level 2.0 01/24/18 11:27: Glucometer 220H 01/24/18 16:10: Glucometer 206H 01/24/18 21:08: Glucometer 221H 01/25/18 06:00: Glucometer 145H 01/25/18 08:10: White Blood Count 6.9, Red Blood Count 3.54L, Hemoglobin 11.2L, Hematocrit 34L, Mean Corpuscular Volume 96, Mean Corpuscular Hemoglobin 32, Mean Corpuscular Hemoglobin Concent 33, Red Cell Distribution Width 19.2H, Platelet Count 227, Mean Platelet Volume 9.7, Neutrophils (%) (Auto) 83H, Lymphocytes (%) (Auto) 8L , Monocytes (%) (Auto) 9, Eosinophils (%) (Auto) 0, Basophils (%) (Auto) 0, Neutrophils # (Auto) 5.7, Lymphocytes # (Auto) 0.5L, Monocytes # (Auto) 0.6, Eosinophils # (Auto) 0.0, Basophils # (Auto) 0.0, Sodium Level 135, Potassium Level 4.6, Chloride Level 98, Carbon Dioxide Level 30, Anion Gap 7, Blood Urea Nitrogen 14, Creatinine 0.45L, Estimat Glomerular Filtration Rate > 60, BUN/ Creatinine Ratio 31, Glucose Level 131H, Calcium Level 9.5, Phosphorus Level 3.5 , Magnesium Level 2.3 01/25/18 11:10: Glucometer 163H 01/25/18 16:16: Glucometer 262H 01/25/18 20:40: Glucometer 199H 01/26/18 05:35: Glucometer 122H 01/26/18 06:00: White Blood Count 6.6, Red Blood Count 3.25L, Hemoglobin 10.6L, Hematocrit 31L, Mean Corpuscular Volume 94, Mean Corpuscular Hemoglobin 33, Mean Corpuscular Hemoglobin Concent 35, Red Cell Distribution Width 18.2H, Platelet Count 214, Mean Platelet Volume 9.7, Neutrophils (%) (Auto) 82H, Lymphocytes (%) (Auto) 8L , Monocytes (%) (Auto) 10, Eosinophils (%) (Auto) 0, Basophils (%) (Auto) 0, Neutrophils # (Auto) 5.4, Lymphocytes # (Auto) 0.5L, Monocytes # (Auto) 0.7, Eosinophils # (Auto) 0.0, Basophils # (Auto) 0.0, Phosphorus Level 3.6 01/26/18 06:07: Sodium Level 132L, Potassium Level 4.8, Chloride Level 96L, Carbon Dioxide Level 29, Anion Gap 7, Blood Urea Nitrogen 14, Creatinine 0.40L, Estimat Glomerular Filtration Rate > 60, BUN/Creatinine Ratio 35, Glucose Level 117H, Calcium Level 8.8, Magnesium Level 2.2 01/26/18 11:17: Glucometer 154H 01/26/18 15:55: Glucometer 236H 01/26/18 20:39: Glucometer 184H 01/27/18 05:35: White Blood Count 7.2, Red Blood Count 3.53L, Hemoglobin 11.3L, Hematocrit 33L, Mean Corpuscular Volume 94, Mean Corpuscular Hemoglobin 32, Mean Corpuscular Hemoglobin Concent 34, Red Cell Distribution Width 18.6H, Platelet Count 241, Mean Platelet Volume 9.7, Neutrophils (%) (Auto) 82H, Lymphocytes (%) (Auto) 8L , Monocytes (%) (Auto) 9, Eosinophils (%) (Auto) 0, Basophils (%) (Auto) 0, Neutrophils # (Auto) 5.9, Lymphocytes # (Auto) 0.6L, Monocytes # (Auto) 0.7, Eosinophils # (Auto) 0.0, Basophils # (Auto) 0.0, Sodium Level 130L, Potassium Level 4.5, Chloride Level 95L, Carbon Dioxide Level 29, Anion Gap 6, Blood Urea Nitrogen 17, Creatinine 0.40L, Estimat Glomerular Filtration Rate > 60, BUN/ Creatinine Ratio 43, Glucose Level 107H, Calcium Level 8.8, Phosphorus Level 3.4 , Magnesium Level 2.4 01/27/18 05:45: Glucometer 115H Microbiology 01/21/18 Blood Culture - Final, Complete No growth 01/21/18 Urine Culture - Final, Complete Pseudomonas aeruginosa Laboratory Tests 01/21/18 18:00 01/22/18 02:55 01/23/18 03:25 01/24/18 03:25 01/25/18 08:10 01/26/18 06:00 01/26/18 06:07 01/27/18 05:35 Pending Labs Microbiology Date/Time Source Procedure Growth Status 01/21/18 18:31 Peripheral Rt Hand Blood Culture - Final No growth Complete 01/21/18 18:03 Peripheral Lt Ac Blood Culture - Final Staph, Coag Neg (HOLE PUNCHER STRAP) See Comments Complete 01/21/18 18:45 Urine Straight Cath, In/Out Urine Culture - Final Pseudomonas aeruginosa Complete Laboratory Tests 01/21/18 18:00: White Blood Count 6.7, Red Blood Count 4.07, Hemoglobin 13.0, Hematocrit 38, Mean Corpuscular Volume 93, Mean Corpuscular Hemoglobin 32, Mean Corpuscular Hemoglobin Concent 34, Red Cell Distribution Width 17.6, Platelet Count 279, Mean Platelet Volume 9.9, Neutrophils (%) (Auto) 89, Lymphocytes (%) (Auto) 8, Monocytes (%) (Auto) 4, Eosinophils (%) (Auto) 0, Basophils (%) (Auto) 0, Neutrophils # (Auto) 5.9, Lymphocytes # (Auto) 0.5, Monocytes # (Auto) 0.3, Eosinophils # (Auto) 0.0, Basophils # (Auto) 0.0, Neutrophils % (Manual) 75, Lymphocytes % (Manual) 9, Monocytes % (Manual) 3, Eosinophils % (Manual) 0, Basophils % (Manual) 0, Band Neutrophils 13, Blood Morphology Comment NORMAL, Prothrombin Time 13.8, INR Comment 1.1, Activated Partial Thromboplast Time 22, Sodium Level 131, Potassium Level 4.6, Chloride Level 93, Carbon Dioxide Level 30, Anion Gap 8, Blood Urea Nitrogen 14, Creatinine 0.57, Estimat Glomerular Filtration Rate > 60, BUN/Creatinine Ratio 25, Glucose Level 212, Calcium Level 9.3, Corrected Calcium 9.6, Magnesium Level 2.1, Total Bilirubin 0.7, Aspartate Amino Transf (AST/SGOT) 58, Alanine Aminotransferase (ALT/SGPT) 103, Alkaline Phosphatase 51, Total Creatine Kinase 146, Creatine Kinase MB 4.3, Troponin I < 0.30, B-Type Natriuretic Peptide 196.7, Total Protein 6.3, Albumin 3.6 01/21/18 18:05: Lactic Acid Level 2.21 01/21/18 18:30: Blood Gas Puncture Site LEFT RADIAL, Blood Gas Patient Temperature 97.7, Arterial Blood pH 7.45, Arterial Blood Partial Pressure CO2 45, Arterial Blood Partial Pressure O2 91, Arterial Blood HCO3 31, Arterial Blood Total CO2 32.4, Arterial Blood Oxygen Saturation 99, Arterial Blood Base Excess 6.8, Corey Test POSITIVE, Blood Gas Ventilator Setting NO, Blood Gas Inspired Oxygen 45% 01/21/18 18:45: Urine Color YELLOW, Urine Clarity VERY CLOUDY, Urine pH 8, Urine Specific [place] 1.015, Urine Protein 1+, Urine Glucose (UA) NEGATIVE, Urine Ketones NEGATIVE, Urine Nitrite NEGATIVE, Urine Bilirubin NEGATIVE, Urine Urobilinogen NORMAL, Urine Leukocyte Esterase 3+, Urine RBC (Auto) 3+, Urine RBC 5-10, Urine WBC 50-100, Urine Squamous Epithelial Cells RARE, Urine Renal Epithelial Cells 0 -2, Urine Crystals PRESENT, Urine Amorphous Sediment FEW NISSA PHOSPHATE, Urine Bacteria FEW, Urine Casts NONE, Urine Mucus NEGATIVE, Urine Culture Indicated YES 01/21/18 19:11: Lab Scanned Report Referred Lab Report 01/21/18 20:35: Lactic Acid Level 1.37 01/21/18 23:10: Glucometer 171 01/22/18 02:55: White Blood Count 5.1, Red Blood Count 3.61, Hemoglobin 11.6, Hematocrit 34, Mean Corpuscular Volume 93, Mean Corpuscular Hemoglobin 32, Mean Corpuscular Hemoglobin Concent 35, Red Cell Distribution Width 17.5, Platelet Count 245, Mean Platelet Volume 10.0, Neutrophils (%) (Auto) 92, Lymphocytes (%) (Auto) 6, Monocytes (%) (Auto) 2, Eosinophils (%) (Auto) 0, Basophils (%) (Auto) 0, Neutrophils # (Auto) 4.7, Lymphocytes # (Auto) 0.3, Monocytes # (Auto) 0.1, Eosinophils # (Auto) 0.0, Basophils # (Auto) 0.0, Sodium Level 134, Potassium Level 3.8, Chloride Level 93, Carbon Dioxide Level 28, Anion Gap 13, Blood Urea Nitrogen 15, Creatinine 0.51, Estimat Glomerular Filtration Rate > 60, BUN/ Creatinine Ratio 29, Glucose Level 172, Calcium Level 9.0, Corrected Calcium 9.4 , Total Bilirubin 0.6, Aspartate Amino Transf (AST/SGOT) 48, Alanine Aminotransferase (ALT/SGPT) 93, Alkaline Phosphatase 46, Total Protein 6.0, Albumin 3.5, Procalcitonin 0.10, Thyroid Stimulating Hormone (TSH) 0.60 01/22/18 11:31: Glucometer 254 01/22/18 15:47: Glucometer 277 01/22/18 21:00: Glucometer 304 01/23/18 03:25: White Blood Count 9.4, Red Blood Count 2.94, Hemoglobin 9.4, Hematocrit 28, Mean Corpuscular Volume 94, Mean Corpuscular Hemoglobin 32, Mean Corpuscular Hemoglobin Concent 34, Red Cell Distribution Width 17.8, Platelet Count 219, Mean Platelet Volume 9.4, Neutrophils (%) (Auto) 90, Lymphocytes (%) (Auto) 2, Monocytes (%) (Auto) 8, Eosinophils (%) (Auto) 0, Basophils (%) (Auto) 0, Neutrophils # (Auto) 8.4, Lymphocytes # (Auto) 0.2, Monocytes # (Auto) 0.8, Eosinophils # (Auto) 0.0, Basophils # (Auto) 0.0, Neutrophils % (Manual) 89, Lymphocytes % (Manual) 1, Monocytes % (Manual) 10, Poikilocytosis SLIGHT, Basophilic Stippling SLIGHT, Anisocytosis SLIGHT, Sodium Level 133, Potassium Level 3.4, Chloride Level 94, Carbon Dioxide Level 29, Anion Gap 10, Blood Urea Nitrogen 18, Creatinine 0.50, Estimat Glomerular Filtration Rate > 60, BUN/ Creatinine Ratio 36, Glucose Level 217, Calcium Level 8.7, Corrected Calcium 9.5 , Phosphorus Level 1.4, Magnesium Level 1.9, Total Bilirubin 0.3, Aspartate Amino Transf (AST/SGOT) 37, Alanine Aminotransferase (ALT/SGPT) 75, Alkaline Phosphatase 41, B-Type Natriuretic Peptide 156.4, Total Protein 4.9, Albumin 3.0 01/23/18 11:45: Glucometer 222 01/23/18 17:13: Glucometer 266 01/23/18 21:00: Glucometer 275 01/24/18 03:25: White Blood Count 7.3, Red Blood Count 2.90, Hemoglobin 9.4, Hematocrit 28, Mean Corpuscular Volume 95, Mean Corpuscular Hemoglobin 32, Mean Corpuscular Hemoglobin Concent 34, Red Cell Distribution Width 18.6, Platelet Count 199, Mean Platelet Volume 9.8, Neutrophils (%) (Auto) 85, Lymphocytes (%) (Auto) 5, Monocytes (%) (Auto) 10, Eosinophils (%) (Auto) 0, Basophils (%) (Auto) 0, Neutrophils # (Auto) 6.2, Lymphocytes # (Auto) 0.4, Monocytes # (Auto) 0.7, Eosinophils # (Auto) 0.0, Basophils # (Auto) 0.0, Sodium Level 137, Potassium Level 4.2, Chloride Level 100, Carbon Dioxide Level 25, Anion Gap 12, Blood Urea Nitrogen 22, Creatinine 0.43, Estimat Glomerular Filtration Rate > 60, BUN/ Creatinine Ratio 51, Glucose Level 130, Calcium Level 8.7, Phosphorus Level 3.4 , Magnesium Level 2.0 01/24/18 11:27: Glucometer 220 01/24/18 16:10: Glucometer 206 01/24/18 21:08: Glucometer 221 01/25/18 06:00: Glucometer 145 01/25/18 08:10: White Blood Count 6.9, Red Blood Count 3.54, Hemoglobin 11.2, Hematocrit 34, Mean Corpuscular Volume 96, Mean Corpuscular Hemoglobin 32, Mean Corpuscular Hemoglobin Concent 33, Red Cell Distribution Width 19.2, Platelet Count 227, Mean Platelet Volume 9.7, Neutrophils (%) (Auto) 83, Lymphocytes (%) (Auto) 8, Monocytes (%) (Auto) 9, Eosinophils (%) (Auto) 0, Basophils (%) (Auto) 0, Neutrophils # (Auto) 5.7, Lymphocytes # (Auto) 0.5, Monocytes # (Auto) 0.6, Eosinophils # (Auto) 0.0, Basophils # (Auto) 0.0, Sodium Level 135, Potassium Level 4.6, Chloride Level 98, Carbon Dioxide Level 30, Anion Gap 7, Blood Urea Nitrogen 14, Creatinine 0.45, Estimat Glomerular Filtration Rate > 60, BUN/ Creatinine Ratio 31, Glucose Level 131, Calcium Level 9.5, Phosphorus Level 3.5 , Magnesium Level 2.3 01/25/18 11:10: Glucometer 163 01/25/18 16:16: Glucometer 262 01/25/18 20:40: Glucometer 199 01/26/18 05:35: Glucometer 122 01/26/18 06:00: White Blood Count 6.6, Red Blood Count 3.25, Hemoglobin 10.6, Hematocrit 31, Mean Corpuscular Volume 94, Mean Corpuscular Hemoglobin 33, Mean Corpuscular Hemoglobin Concent 35, Red Cell Distribution Width 18.2, Platelet Count 214, Mean Platelet Volume 9.7, Neutrophils (%) (Auto) 82, Lymphocytes (%) (Auto) 8, Monocytes (%) (Auto) 10, Eosinophils (%) (Auto) 0, Basophils (%) (Auto) 0, Neutrophils # (Auto) 5.4, Lymphocytes # (Auto) 0.5, Monocytes # (Auto) 0.7, Eosinophils # (Auto) 0.0, Basophils # (Auto) 0.0, Phosphorus Level 3.6 01/26/18 06:07: Sodium Level 132, Potassium Level 4.8, Chloride Level 96, Carbon Dioxide Level 29, Anion Gap 7, Blood Urea Nitrogen 14, Creatinine 0.40, Estimat Glomerular Filtration Rate > 60, BUN/Creatinine Ratio 35, Glucose Level 117, Calcium Level 8.8, Magnesium Level 2.2 01/26/18 11:17: Glucometer 154 01/26/18 15:55: Glucometer 236 01/26/18 20:39: Glucometer 184 01/27/18 05:35: White Blood Count 7.2, Red Blood Count 3.53, Hemoglobin 11.3, Hematocrit 33, Mean Corpuscular Volume 94, Mean Corpuscular Hemoglobin 32, Mean Corpuscular Hemoglobin Concent 34, Red Cell Distribution Width 18.6, Platelet Count 241, Mean Platelet Volume 9.7, Neutrophils (%) (Auto) 82, Lymphocytes (%) (Auto) 8, Monocytes (%) (Auto) 9, Eosinophils (%) (Auto) 0, Basophils (%) (Auto) 0, Neutrophils # (Auto) 5.9, Lymphocytes # (Auto) 0.6, Monocytes # (Auto) 0.7, Eosinophils # (Auto) 0.0, Basophils # (Auto) 0.0, Sodium Level 130, Potassium Level 4.5, Chloride Level 95, Carbon Dioxide Level 29, Anion Gap 6, Blood Urea Nitrogen 17, Creatinine 0.40, Estimat Glomerular Filtration Rate > 60, BUN/ Creatinine Ratio 43, Glucose Level 107, Calcium Level 8.8, Phosphorus Level 3.4 , Magnesium Level 2.4 01/27/18 05:45: Glucometer 115 Discharge Home Medications: Active Scripts Active Prednisone 10 Mg Tab.ds.pk 30 Mg PO DAILY 30 Days Take 6 tabs(60mg)daily,decrease by 1 tab(10mg)every other day. Sulfamethoxazole-Tmp Ds Tablet (Sulfamethoxazole/Trimethoprim) 1 Each Tablet 1 Tab PO MOWEFR 30 Days 1 tablet by mouth 3 times a week. MO,We,Fr for PCP PPX. Reported Atorvastatin Calcium 80 Mg Tablet 80 Mg PO HS Venlafaxine HCl ER (Venlafaxine HCl) 75 Mg Cap.er.24h 75 Mg PO DAILY Promethazine-Codeine Syrup (Promethazine HCl/Codeine) 118 Ml Syrup 5 Ml PO Q6H PRN Lorazepam 0.5 Mg Tablet 0.5 Mg PO TID PRN Lorazepam 0.5 Mg Tablet 0.5 Mg PO DAILY Senna-S Tablet (Sennosides/Docusate Sodium) 1 Each Tablet 1 Tab PO HS Klor-Con 10 (Potassium Chloride) 10 Meq Tablet.er 10 Meq PO Q48H Metoprolol Succinate 25 Mg Tab.er.24h 25 Mg PO DAILY Losartan Potassium 25 Mg Tablet 12.5 Mg PO DAILY TAKES 1/2 (25MG) TABLET Furosemide 40 Mg Tablet 20 Mg PO Q48H Azathioprine 50 Mg Tablet 50 Mg PO DAILY Ventolin Hfa (Albuterol Sulfate) 18 Gm Hfa.aer.ad 2 Puff INH Q4H PRN Os-Daron 500+D3 Caplet (Calcium Carbonate/Vitamin D3) 1 Each Tablet 1 Tab PO 1200, 2100 Levothyroxine Sodium 75 Mcg Tablet 75 Mcg PO DAILY Aspirin 81 Mg Tab.chew 81 Mg PO HS Plavix (Clopidogrel Bisulfate) 75 Mg Tablet 75 Mg PO DAILY [[place] W/ C] 1 Tab PO 1200,2100 Instructions to patient/family Please see electronic discharge instructions given to patient. Clinical Quality Measures DVT/VTE Risk/Contraindication: Risk Factor Score Per Nursin RFS Level Per Nursing on Admit: 4+=Very High Contraindications-Pharm: Other *list below* ABRAM BRITT DO Jan 29, 2018 06:53
--- NOTE | 2018-01-29 13:18 | Physician Query Clarification ---
PQ-Conflicting Diagnosis Admission/Discharge Admission Date: Jan 21, 2018 at 19:11 Discharge Date: Jan 27, 2018 at 14:27 The medical record reflects the following clinical scenario: History/Risk Factors: Respiratory distress Acute pulmonary fibrosis Acute on chronic diastolic heart failure Clinical Findings: T96.7, Pulse 104, Resp 43, WBC 6.7, Bands 13, Lactic acid 2.21 and blood cultures positive Coag negative Staph isolated from 2 bottles of 3 on admission BP 134/84 to 88/64. Treatment:IV Ceftriaxone, IV Azithromycin Question: The only mention of sepsis in chart was from Dr. Schumacher's consult. Do you agree with the impression of the UTI with Sepsis per Dr. Schumacher. Please document a response below. PHYSICIAN RESPONSE Do you agree w/Consulting Dx?: Clinically undetermined In responding to this query, please exercise your independent professional judgment. The purpose of this communication is to more accurately reflect the complexity of your patients condition. The fact that a question is asked does not imply that any particular answer is desired or expected. Thank you for your timely response to this clarification. Requestors name: Anny Haas [facility] or Ext [phone] THIS PHYSICIAN QUERY FORM IS A PERMANENT PART OF THE MEDICAL RECORD ANNY HAAS Jan 29, 2018 13:18 ABRAM BRITT DO Jan 30, 2018 06:49
--- NOTE | 2018-01-29 14:48 | Physician Query Clarification ---
PQ-Conflicting Diagnosis Admission/Discharge Admission Date: Jan 21, 2018 at 19:11 Discharge Date: Jan 27, 2018 at 14:27 The medical record reflects the following clinical scenario: History/Risk Factors: Interstitial lung disease/Pulmonary fibrosis acute exacerbation Chronic respiratory failure Clinical Findings: Pulse 104, Resp 43, Pulse ox 95%, on 02 at 4L at home continuously, labored breathing, respiratory distress, accessory muscle use. Treatment: High Flow nasal cannula a 10 liters, Placed on Vapotherm by RT on arrival. Question: Your H&P lists respiratory distress, hypoxia and nasal oxygen at 15L. Do you agree with the impression of Acute on chronic respiratory failure per Dr. Quan's consult. Please document a response below. PHYSICIAN RESPONSE Do you agree w/Consulting Dx?: Yes In responding to this query, please exercise your independent professional judgment. The purpose of this communication is to more accurately reflect the complexity of your patients condition. The fact that a question is asked does not imply that any particular answer is desired or expected. Thank you for your timely response to this clarification. Requestors name: Anny Haas [facility] Phone # ext [phone] or [phone] THIS PHYSICIAN QUERY FORM IS A PERMANENT PART OF THE MEDICAL RECORD ANNY HAAS Jan 29, 2018 14:48 ABRAM BRITT DO Jan 30, 2018 06:51
== END 2018-01-27 14:27 | disposition home health service (06) | DRG 189 ==
LOC: EDUNIT# 17:46 → ER 17:47 → ICU 19:11 → 4TH 01-24 11:41
PROVIDERS: ADMIT Family Medicine; ATTEND Family Medicine
DX: J96.20 Acute and chronic respiratory failure, unspecified whether with hypoxia or hypercapnia (principal); J84.9 Interstitial pulmonary disease, unspecified; I11.0 Hypertensive heart disease with heart failure; I50.33 Acute on chronic diastolic (congestive) heart failure; N30.00 Acute cystitis without hematuria; B96.5 Pseudomonas (aeruginosa) (mallei) (pseudomallei) as the cause of diseases classified elsewhere; J45.909 Unspecified asthma, uncomplicated; Z66 Do not resuscitate; B37.0 Candidal stomatitis; E87.1 Hypo-osmolality and hyponatremia; I25.10 Atherosclerotic heart disease of native coronary artery without angina pectoris; I25.2 Old myocardial infarction; E11.59 Type 2 diabetes mellitus with other circulatory complications; I48.91 Unspecified atrial fibrillation; I95.89 Other hypotension; E78.00 Pure hypercholesterolemia, unspecified; E03.9 Hypothyroidism, unspecified; M19.91 Primary osteoarthritis, unspecified site; T38.0X5A Adverse effect of glucocorticoids and synthetic analogues, initial encounter; D64.9 Anemia, unspecified; R19.7 Diarrhea, unspecified; R74.8 Abnormal levels of other serum enzymes; Z77.120 Contact with and (suspected) exposure to mold (toxic); Z95.5 Presence of coronary angioplasty implant and graft; Z99.81 Dependence on supplemental oxygen; Z79.84 Long term (current) use of oral hypoglycemic drugs; Z87.01 Personal history of pneumonia (recurrent)
CPT/HCPCS: 36415; 51702; 71045; 71046; 80048; 80053; 81000; 81002; 82550; 82553; 82805; 82962; 83605; 83735; 83880; 84100; 84145; 84443; 84484; 85007; 85025; 85027; 85610; 85730; 87040; 87077; 87088; 87186; 93005; 93041; 94640; 94760; 96365; 96375

== ENCOUNTER → 2018-03-04 | Outpatient (CLI) | payer MEDICARE, OTHER ==
[~2018-03-04] MED LIST changes: +AMOX1TAB12 PO; +CODE118S4 PO; +LORA0.5T PO; +NYST1000 PO; +VENL75CA93 PO
== END ==
LOC: HH 08:00
PROVIDERS: ATTEND Family Medicine
DX: I50.9 Heart failure, unspecified (principal); J96.90 Respiratory failure, unspecified, unspecified whether with hypoxia or hypercapnia